=== PATIENT | female | born 1980 | race Caucasian/White ===

== ENCOUNTER 2023-06-12 18:18 | Emergency (ER) | payer BC, SELFPAY ==
[2023-06-12 18:27] VITALS: BP 146/88; PULSE 86; RESP 16; TEMP 36.7; O2SAT 99; BMI 29.1
--- NOTE | 2023-06-12 18:38 | CT_ITS ---
The [address] [address] Patient Name: RAMY MARTINEZ MRN: [id number] date: 1980 Sex: F Assigned Patient Location: ER Current Patient Location: Accession/Order Number: [id number] Exam Date: 06/12/2023 19:54 Report Date: 06/12/2023 20:18 At the request of: JOSHUA NARVAEZ Procedure: CT abdomen pelvis w con EXAM: CT scan of the abdomen and pelvis using 100 mL of IV iodinated contrast. Dose reduction technique used: Automated exposure control and/or adjustment of the mA and/or kV according to patient size and/or use of iterative reconstruction technique. REASON FOR EXAM: Colitis, bloody stools COMPARISON: None FINDINGS: Bilateral tubal ligation clips. Cholecystectomy. Nonobstructing left calyceal tip renal stone. Colonic diverticulosis. Ventral hernia repair changes. Right middle lobe pulmonary cyst. Normal appendix. No free fluid in the abdomen or pelvis. No free intraperitoneal air. No dilated or thickened loops of small bowel or colon. No hydronephrosis or obstructing renal or ureteral calculi. Liver, pancreas, spleen, bilateral kidneys, and bilateral adrenal glands are otherwise unremarkable. No lymphadenopathy in the abdomen or pelvis. Remainder unremarkable. CT/CT abdomen pelvis w con IMPRESSION: No acute abnormalities in the abdomen or pelvis. Electronically authenticated by: TRELL GAMBOA Date: 06/12/2023 20:18
--- NOTE | 2023-06-12 18:40 | ED_ITS ---
HPI - General Adult General Chief complaint: Urogenital-Female Stated complaint: Bloody Stools x1 week, HX colitis Time Seen by Provider: 06/12/23 18:19 Source: patient and family Mode of arrival: walk-in Limitations: no limitations History of Present Illness HPI narrative: Patient is a 42-year-old female who presents to the emergency department for the evaluation of possible colitis exacerbation. She has a history of pancolitis and has been treated with antibiotics and steroids in the past by her GI specialist. She states she contacted the GI office today at [facility] to let them know that she has been having bloody stool for the last week. She has no abdominal pain. She states that she was not able to be seen in the office and she was referred to the ER. She receives most of her care through [facility]. Last colonoscopy was 2 years ago. She states she has not been treated with antibiotics and steroids for this in over a year. She has had no fevers or vomiting. She reports intermittent nausea. She has no significant abdominal discomfort. No medications taken prior to arrival. She is not concerned for . Related Data Home Medications Medication Instructions Recorded Confirmed ferrous sulfate 325 mg (65 mg 325 mg PO DAILY 06/12/23 06/12/23 iron) tablet (FeroSul) mesalamine 0.375 gram PO DAILY 06/12/23 capsule,extended release 24 hr phentermine 37.5 mg capsule 37.5 mg PO DAILY 06/12/23 06/12/23 (Adipex-P) trazodone 50 mg tablet 50 mg PO DAILY 06/12/23 06/12/23 venlafaxine 75 mg capsule,extended 75 mg PO DAILY 06/12/23 06/12/23 release 24 hr Previous Rx's Medication Instructions Recorded metronidazole 500 mg tablet 500 mg PO Q12H 7 days #14 tabs 06/12/23 ondansetron 4 mg disintegrating 4 mg PO Q6H PRN nausea and 06/12/23 tablet vomiting #12 tabs prednisone 20 mg tablet 40 mg (2 x 20 mg) PO DAILY 3 days 06/12/23 #6 tabs Allergies Allergy/AdvReac Type Severity Reaction Status Date / Time No Known Drug Allergies Allergy Verified 06/12/23 18:24 Review of Systems ROS Constitutional Denies: fever or chills Ears, nose, mouth, and throat Denies: throat pain Cardiovascular Denies: chest pain Respiratory Denies: shortness of breath or cough Gastrointestinal Reports: nausea, diarrhea and blood in stool; Denies: abdominal pain or vomiting Musculoskeletal Denies: back pain Integumentary/Breast Denies: rash Neurological Denies: headache Hematologic/Lymphatic Denies: easy bruising or easy bleeding [facility] Social History Smoking status: Never smoker Exam Narrative Exam Narrative: Gen.: Awake, alert, in no distress Head: Normocephalic, atraumatic ENT: Moist mucous membranes Respiratory: No respiratory distress, lungs clear bilaterally Cardio: Regular rate and rhythm Gastrointestinal: Abdomen is soft, nondistended and nontender to palpation Extremities: Moves extremities equally Psych: Normal mood and affect Neuro: No focal neuro deficit Skin: Warm, dry, intact Constitutional Vital Signs, click to edit/add: Last Vital Signs Temp 98.1 F 06/12/23 18:27 Pulse 86 06/12/23 18:27 Resp 16 06/12/23 18:27 BP 146/88 H 06/12/23 18:27 Pulse Ox 99 06/12/23 18:27 O2 Del Method Room Air 06/12/23 18:27 Course Vital Signs Vital signs: Vital Signs Temperature 98.1 F 06/12/23 18:27 Pulse Rate 86 06/12/23 18:27 Respiratory Rate 16 06/12/23 18:27 Blood Pressure 146/88 H 06/12/23 18:27 Pulse Oximetry 99 06/12/23 18:27 Oxygen Delivery Method Room Air 06/12/23 18:27 Temperature 98.1 F 06/12/23 18:27 Pulse Rate 86 06/12/23 18:27 Respiratory Rate 16 06/12/23 18:27 Blood Pressure 146/88 H 06/12/23 18:27 Pulse Oximetry 99 06/12/23 18:27 Oxygen Delivery Method Room Air 06/12/23 18:27 Medical Decision Making MDM Narrative Medical decision making narrative: Patient with normal labs, normal inflammatory markers and CT showing no evidence of acute abnormalities. Given her history she is treated with a short course of Flagyl and prednisone. Follow-up with your GI doctor and return to the ER if symptoms change or worsen. Medical Records Medical records reviewed: Yes I reviewed the patient's medical records Lab Data Lab results reviewed: Yes I reviewed the patient's lab results Labs: Lab Results 06/12/23 06/12/23 Range/Units 18:49 18:52 WBC 6.5 (4.0-11.0) 10^3/uL RBC 4.31 (4.20-5.40) 10^6/uL Hgb 12.8 (12.0-16.0) g/dL Hct 38.3 (36.0-48.0) % MCV 88.9 (81.0-99.0) fL MCH 29.7 (26.7-34.0) pg MCHC 33.4 (29.9-35.2) g/dL RDW 12.1 (11.0-15.0) % Plt Count 368 (150-450) 10^3/uL MPV 10.1 (9.5-13.5) fL Neut % (Auto) 65.4 (43.0-75.0) % Lymph % (Auto) 22.0 (20.5-60.0) % [place] % (Auto) 7.6 (1.7-12.0) % Eos % (Auto) 4.0 (0.9-7.0) % Baso % (Auto) 0.8 (0.2-2.0) % Neut # (Auto) 4.2 (1.4-6.5) 10^3/uL Lymph # (Auto) 1.4 (1.2-3.8) 10^3/uL [place] # (Auto) 0.5 (0.3-0.8) 10^3/uL Eos # (Auto) 0.3 (0.0-0.7) 10^3/uL Baso # (Auto) 0.1 (0.0-0.1) 10^3/uL Abs Immat Gran (auto) 0.01 (0.00-0.03) 10^3/uL Imm/Tot Granulo (auto) 0.2 (0.0-0.5) % Sodium 137 (136-145) mmol/L Potassium 3.4 L (3.5-5.1) mmol/L Chloride 101 (98-107) mmol/L Carbon Dioxide 28.3 (21.0-32.0) mmol/L Anion Gap 11.1 BUN 7.0 (7.0-18.0) mg/dL Creatinine 0.75 (0.55-1.02) mg/dL Est GFR ( Amer) >60 (>=60) Est GFR (Non-Af Amer) >60 (>=60) BUN/Creatinine Ratio 9.3 Glucose 104 (74-106) mg/dL Lactate 0.5 (0.4-2.0) mmol/L Calcium 9.2 (8.5-10.1) mg/dL Total Bilirubin 0.6 (0.2-1.0) mg/dL AST 12 L (15-37) U/L ALT 13 L (14-59) U/L Alkaline Phosphatase 52 (46-116) U/L C-Reactive Protein <0.50 (<=0.50) mg/dL Total Protein 7.3 (6.4-8.2) g/dL Albumin 3.9 (3.4-5.0) g/dL Globulin 3.4 g/dL Albumin/Globulin Ratio 1.1 Serum HCG, Qual Negative (NEGATIVE) Urine Color Yellow (YELLOW) Urine Clarity Clear (CLEAR) Urine pH 6.0 (5.0-9.0) Ur Specific [place] 1.025 (1.005-1.025) Urine Protein Negative (NEG/TRACE) mg/dL Urine Glucose (UA) Negative (NEGATIVE) mg/dL Urine Ketones 15 A (NEGATIVE) mg/dL Urine Occult Blood Moderate A (NEGATIVE) Urine Nitrite Negative (NEGATIVE) Urine Bilirubin Small A (NEGATIVE) Urine Urobilinogen 0.2 (0.2-1.0) EU/dL Ur Leukocyte Esterase Negative (NEGATIVE) Urine RBC 2-5 A (0-2) #/HPF Urine WBC None seen (NONE SEEN) #/HPF Ur Squamous Epith Cells None seen (NONE/RARE) #/LPF Urine Crystals None seen (None Seen) #/HPF Urine Bacteria None seen (NONE SEEN) #/HPF Urine Casts None seen (NONE SEEN) #/LPF Urine Mucus Moderate A (NONE SEEN) Imaging Data CT scan - abdomen: Attestation: I have reviewed the pertinent imaging results. Radiologist's impression: ITS Impressions Abdomen/Pelvis CT 06/12/23 18:38 IMPRESSION: No acute abnormalities in the abdomen or pelvis. Electronically authenticated by: TRELL GAMBOA Date: 06/12/2023 20:18 Discharge Plan Discharge Chief Complaint: Urogenital-Female Clinical Impression: Rectal bleeding Patient Disposition: Home, Self-Care Time of Disposition Decision: 20:52 Condition: Good Prescriptions / Home Meds: New prednisone 20 mg tablet 40 mg PO DAILY 3 Days Qty: 6 0RF metronidazole 500 mg tablet 500 mg PO Q12H 7 Days Qty: 14 0RF ondansetron 4 mg tablet,disintegrating 4 mg PO Q6H PRN (Reason: nausea and vomiting) Qty: 12 0RF No Action ferrous sulfate [FeroSul] 325 mg (65 mg iron) tablet 325 mg PO DAILY trazodone 50 mg tablet 50 mg PO DAILY venlafaxine 75 mg capsule,extended release 24hr 75 mg PO DAILY phentermine [Adipex-P] 37.5 mg capsule 37.5 mg PO DAILY Rx Instructions: must administer 30 minutes before or 1-2 hours after breakfast mesalamine 0.375 gram capsule,extended release 24hr PO DAILY Rx Instructions: 0.375g orally; Instructions: Rectal Bleeding (ED) Additional Instructions: Follow up with your GI doctor Stand Alone Forms: Portal Instructions Referrals: Bipin Martell MD [Primary Care Provider] - 1 week
[2023-06-12] MEDS: 0.9 % SODIUM CHLORIDE 1,000 ML 999 ML IV (18:52)
[2023-06-12 19:22] LABS: Basophils Absolute Auto 0.1 10^3/uL (0.0-0.1); Basophils Percent Auto 0.8 % (0.2-2.0); Eosinophils Absolute Auto 0.3 10^3/uL (0.0-0.7); Hematocrit 38.3 % (36.0-48.0); Hemoglobin 12.8 g/dL (12.0-16.0); Immature Granulocytes Abs Auto 0.01 10^3/uL (0.00-0.03); Immature Granulocytes Pct Auto 0.2 % (0.0-0.5); Lymphocytes Absolute Auto 1.4 10^3/uL (1.2-3.8); Mean Corpuscular HGB Conc 33.4 g/dL (29.9-35.2); Mean Corpuscular Hemoglobin 29.7 pg (26.7-34.0); Mean Corpuscular Volume 88.9 fL (81.0-99.0); Mean Platelet Volume 10.1 fL (9.5-13.5); Monocytes Absolute Auto 0.5 10^3/uL (0.3-0.8); Monocytes Percent Auto 7.6 % (1.7-12.0); Neutrophils Absolute Auto 4.2 10^3/uL (1.4-6.5); Neutrophils Percent Auto 65.4 % (43.0-75.0); Platelet Count 368 10^3/uL (150-450); Red Blood Count 4.31 10^6/uL (4.20-5.40); Red Cell Distribution Width 12.1 % (11.0-15.0); White Blood Count 6.5 10^3/uL (4.0-11.0)
[2023-06-12 19:35] LABS: Bilirubin Urine SMALL (NEGATIVE); Blood Urine MODERATE (NEGATIVE); Clarity Urine CLEAR (CLEAR); Color Urine YELLOW (YELLOW); Glucose Urine UA NEGATIVE (NEGATIVE); Ketones Urine 15 mg/dL (NEGATIVE); Leukocyte Esterase Urine NEGATIVE (NEGATIVE); Nitrite Urine NEGATIVE (NEGATIVE); Protein Urine NEGATIVE (NEG/TRACE); Specific Gravity Urine 1.025 (1.005-1.025); Urobilinogen Urine 0.2 EU/dL (0.2-1.0)
[2023-06-12 19:37] LABS: Urine Microscopic Indicated YES
[2023-06-12 19:42] LABS: Bacteria Urine NONE SEEN #/HPF (NONE SEEN); Cast Seen? NONE SEEN #/LPF (NONE SEEN); Crystals Seen? None Seen #/HPF (None Seen); Mucus Urine MODERATE (NONE SEEN); Squamous Epithelial Cell Urine NONE SEEN #/LPF (NONE/RARE); WBC Urine NONE SEEN #/HPF (NONE SEEN)
[2023-06-12 19:43] LABS: HCG Qualitative NEGATIVE (NEGATIVE)
[2023-06-12 19:44] LABS: Lactate/Lactic Acid 0.5 mmol/L (0.4-2.0)
[2023-06-12 19:47] LABS: Alanine Aminotransferase 13 U/L (14-59); Albumin Globulin Ratio 1.1; Albumin Level 3.9 g/dL (3.4-5.0); Alkaline Phosphatase 52 U/L (46-116); Anion Gap 11.1; Aspartate Amino Transferase 12 U/L (15-37); BUN Creatinine Ratio 9.3; Bilirubin Total 0.6 mg/dL (0.2-1.0); Calcium 9.2 mg/dL (8.5-10.1); Carbon Dioxide 28.3 mmol/L (21.0-32.0); Chloride 101 mmol/L (98-107); Estimated GFR (African America >60 (>=60); Estimated GFR (Non-African Ame >60 (>=60); Globulin 3.4 g/dL; Glucose 104 mg/dL (74-106); Potassium 3.4 mmol/L (3.5-5.1); Sodium 137 mmol/L (136-145); Total Protein 7.3 g/dL (6.4-8.2)
[2023-06-12 19:50] LABS: C Reactive Protein <0.50 mg/dL (<=0.50)
[2023-06-12 20:56] LABS: Erythrocyte Sedimentation Rate 6 mm/hr (<=20)
[2023-06-12 21:00] VITALS: BP 130/80; PULSE 80; RESP 18; O2SAT 99
[2023-06-12] MEDS: METRONIDAZOLE 250 MG TABLET 500 MG PO (21:01)
[2023-06-12] MEDS: PREDNISONE 20 MG TABLET 60 MG PO (21:01)
== END 2023-06-12 21:00 | disposition home or self-care (01) ==
PROVIDERS: Physician Assistant; Emergency Provider Emergency Medicine; PCP Family Medicine
DX: K92.1 Melena (principal); Z79.899 Other long term (current) drug therapy
CPT/HCPCS: 36415; 74177; 80053; 81001; 83605; 84703; 85025; 85652; 86140; 99285; J7512; Q9967

== ENCOUNTER 2024-01-03 19:05 | Outpatient (REF) | payer BC, SELFPAY ==
[2024-01-09 10:09] LABS: Age Gdln ACOG Testing Note (.); HPV Aptima Negative (Negative); IGP, Aptima HPV, rfx 16/18,45 Note (.)
== END 2024-01-03 19:06 | disposition home or self-care (01) ==
LOC: LAB 19:05
PROVIDERS: PCP Family Medicine; Visit Provider Physician Assistant
DX: Z01.419 Encounter for gynecological examination (general) (routine) without abnormal findings (principal)
CPT/HCPCS: 87624; 88175

== ENCOUNTER 2024-01-08 17:38 | Outpatient (OUT) | payer BC, SELFPAY ==
--- NOTE | 2024-01-08 | MM_ITS ---
Patient Name: RAMY MARTINEZ MR#: [id number] : 1980 Exam Date: 01/08/2024 Ordering Doctor: CHAYA Reynolds . RADIOLOGY REPORT PROCEDURE: MM TOMOSYNTHESIS SCREENING BI COMPARISON: MG MAMM SCREEN 3D FAISAL CAD, 02/01/2022. INDICATIONS: Screening mammogram Calculator Name NCI Breast Cancer Risk Assessment Tool 5 Year Breast Cancer Risk 0.50% Lifetime Breast Cancer Risk 7.10% Personal Breast Cancer No Personal Ovarian Cancer No Treatments None Family Cancers Mother with lung/brain cancer at age 57; Grandmother-maternal with uterine cancer at age 40. LOCATION: [facility] BREAST COMPOSITION: The breasts are heterogeneously dense,which may obscure small masses. FINDINGS: DIAGNOSTIC CATEGORY 1--NEGATIVE. RIGHT BREAST: No significant suspicious finding. No significant change has occurred. LEFT BREAST: No significant suspicious finding. No significant change has occurred. RECOMMENDATIONS: ROUTINE MAMMOGRAM AND CLINICAL EVALUATION IN 12 MONTHS. PLEASE NOTE: A NORMAL MAMMOGRAM DOES NOT EXCLUDE THE POSSIBILITY OF BREAST CANCER. A CLINICALLY SUSPICIOUS PALPABLE LUMP SHOULD BE BIOPSIED. Dictated by: Evan Fernández M.D. on 01/11/2024 at 09:08 Approved by: Evan Fernández M.D. on 01/11/2024 at 09:13
== END 2024-01-08 17:39 | disposition home or self-care (01) ==
LOC: MAMMO 17:38
PROVIDERS: PCP Family Medicine; Visit Provider Physician Assistant
DX: Z12.31 Encounter for screening mammogram for malignant neoplasm of breast (principal); Z80.1 Family history of malignant neoplasm of trachea, bronchus and lung; Z80.8 Family history of malignant neoplasm of other organs or systems
CPT/HCPCS: 77063; 77067

== ENCOUNTER 2024-08-25 07:17 | Observation (INO) | payer BC, SELFPAY ==
[2024-08-25] VITALS (22 sets, daily range): BP systolic 111–130; BP diastolic 72–91; PULSE 80–117; TEMP 36.4–36.9; O2SAT 77–99; BMI 33.3; BMI 34.0
--- OUTSIDE RECORDS SUMMARY | 2024-08-25 07:22 | XMS_ITS | CCD ---
Author Organization [facility] ion [facility] Care Team Providers Care Accounts Receivable Manager Name Role Phone ABERRA, JOSEFINA Unavailable Unavailable HOUSE, JUDITH P Unavailable Unavailable HOUSE, JUDITH P Unavailable Unavailable ABERRA, JOSEFINA Unavailable Unavailable HOUSE, JUDITH P Unavailable Unavailable HOUSE, JUDITH P Unavailable Unavailable HOUSE, JUDITH P Unavailable Unavailable LI, NA Unavailable Unavailable LI, NA Unavailable Unavailable ABERRA, JOSEFINA Unavailable Unavailable MD Yaquelin Perez Primary Care Provider MD Reddy Dewitt Attending Provider [phone] Reddy Dewitt Unavailable Yaquelin Perez Primary Care Physician CHASITY BOOKER Admitting Unavailable CHASITY BOOKER Attending Unavailable CHRIS ., DR JAMISON Primary Care Unavailable CHASITY BOOEKR Consulting Unavailable LUIS ., DR CHASE Admitting Unavailable LUIS ., DR CHASE Attending Unavailable HOY ., DR JAMISON Primary Care Unavailable LUIS ., DR CHASE Consulting Unavailable LUIS ., DR CHASE Admitting Unavailable LUIS ., DR CHASE Attending Unavailable HOY ., DR JAMISON Primary Care Unavailable SHIDLER, DR KRYSTAL Pelaez Consulting Unavailable LUIS ., DR CHASE Consulting Unavailable CHRIS ., DR JAMISON Admitting Unavailable CHRIS ., DR JAMISON Attending Unavailable CHRIS ., DR JAMISON Primary Care Unavailable CHRIS Larios, DR JAMISON Consulting Unavailable QUNIN, DR VALVERDE Admitting Unavailable QUINN, DR VALVERDE Attending Unavailable CHRIS ., DR JAMISON Primary Care Unavailable QUINN, DR VALVERDE Consulting Unavailable DR YAQUELIN PATINO Primary Care Unavailable CLARA SEN Admitting Unavailable CLARA SEN Attending Unavailable JULY, DR STELLA Paredes Consulting Unavailable CLARA SEN Consulting Unavailable CHRIS ., DR JAMISON Admitting Unavailable CHRIS ., DR JAMISON Attending Unavailable CHRIS ., DR JAMISON Primary Care Unavailable CHRIS ., DR JAMISON Consulting Unavailable CHASITY BOOKER Admitting Unavailable CHASITY BOOKER Attending Unavailable CHRIS ., DR JAMISON Primary Care Unavailable MD Yaquelin Perez Primary Care Provider MD Arleth Roach Admit Provider [phone] MD Arleth Roach Attending Provider [phone] Yaquelin Perez MD Primary Care Provider Tyler Roach Attending Unavailab Tyler Martinez Admitting Unavailab Yaquelin Sheth Primary Care Unavailable DENISSE CHIANG Attending Unavailable YAQUELIN PEREZ Primary Care Unavailable MUHAZEL, JOSEPH H Referring Unavailable YAQUELIN PEREZ Primary Care Unavailable YAQUELIN PEREZ Primary Care Unavailable YAQUELIN PEREZ Primary Care Unavailable DENISSE CHIANG Admitting Unavailable DENISSE CHIANG Attending Unavailable YAQUELIN PEREZ Primary Care Unavailable YAQUELIN PEREZ Primary Care Unavailable DENISSE CHIANG H Attending Unavailable YAQUELIN PEREZ Primary Care Unavailable MUOH, JOSEPH H Attending Unavailable YAQUELIN PEREZ Primary Care Unavailable DENISSE CHIANG H Attending Unavailable YAQUELIN PEREZ Primary Care Unavailable Unavailable Primary Care Provider Unavailabl e Melissa Rivera Admitting Unavaila Melissa Garcia Attending Unavaila Melissa Garcia Referring Unavaila ble Melissa Rivera Taladan Attending Unavaila Melissa Garcia Attending Unavaila ble Medications Current Medications Medication Drug Class(es) Dates Sig (Normalized) Sig (Original) acetaminophen 325 mg / HYDROcodone bitartrate 5 mg oral tablet (3 sources) Opioid Agonist Start: 12-24-2023 take 1 tablet by mouth every four hours as needed 1 tablet, oral, Every 4 hours PRN, pain moderate (4-6), second line, Starting on Sun12/24/23 at 1900, Recovery (only), When able to take oral medications., If ordered PRN for pain, nurse is permitted to administer this medication for higher pain scores based on patient preference? Yes Start: 10-03-2019 End: 10-10-2019 take 1 tablet by mouth once daily at bedtime Hydrocodone-Acetaminophen Discontinued 1 TAB PO Daily at bedtime October 03, 2019 8:30am October 10, 2019 2:39pm acetaminophen 325 mg / oxyCODONE hydrochloride 5 mg oral tablet (1 source) Opioid Agonist Start: 12-24-2023 End: 12-27-2023 take 1 tablet by mouth every six hours for pain oxyCODONE-acetaminophen (Percocet) 5-325 mg tablet Indications: Prolapsed internal hemorrhoids Take 1 tablet by mouth every 6 hours if needed for severe pain (7 - 10) for up to 3 days. 10 tablet 12/24/2023 12/27/2023 Active albuterol 0.83 mg/ml inhalation solution (6 sources) beta2-Adrene rgic Agonist Start: 12-24-2023 2.5 mg, nebulization, Every 20 min PRN, wheezing, Starting on Sun12/24/23 at 1900, For 3 doses, Recovery (only) Start: 10-03-2019 End: 08-28-2022 take 1 puff(s) by inhalation every four to six hours Albuterol Sulfate (Proair Hfa) 90 mcg/actuation Hfa Aerosol Inhaler Active 2 PUFF INHALATION EVERY 4-6 HOURS October 03, 2019 8:30am take 2 puff(s) by mo uth every four hours albuterol 90 mcg/actuation inhaler INHALE 2 PUFFS BY MOUTH EVERY 4 HOURS IF NEEDED Active Budesonide-Formoterol (3 sources) Corticosteroid, beta2-Adrenergic Agonist Start: 10-03-2019 take 1 puff(s) by inhalation twice daily Budesonide-Formoterol Active 1 PUFF INHALATION Twice daily October 03, 2019 8:30am Start: 10-03-2019 End: 08-28-2022 take 1 puff(s) by inhalation twice daily Budesonide-Formoterol Discontinued 1 PUFF INHALATION Twice daily October 03, 2019 12:00am August 28, 2022 6:50pm take 2 puff(s) by in halation twice daily Symbicort 160-4.5 MCG/ACT INHALE 2 PUFFS TWICE DAILY Inhalation for 30 Active busPIRone hydrochloride 10 mg oral tablet (2 sources) Start: 10-03-2019 End: 08-28-2022 take 10 mg by mouth twice daily Buspirone Active 10 MG PO Twice daily October 03, 2019 8:30am calcium chloride 0.0014 meq/ml / potassium chloride 0.004 meq/ml / sodium chloride 0.103 meq/ml / sodium lactate 0.028 meq/ml injectable solution (2 sources) Start: 12-24-2023 take 100 mL intravenously every hour 100 mL/hr, intravenous, Continuous, Starting on Sun12/24/23 at 1930, Recovery (only) cephalexin 500 mg oral capsule (2 sources) Cephalosporin Antibacterial Start: 10-10-2019 End: 08-28-2022 take 1 capsule by mouth every eight hours Cephalexin (Keflex) 500 mg capsule Active 500 MG PO Q8H October 10, 2019 2:39pm cyclobenzaprine hydrochloride 10 mg oral tablet (2 sources) Muscle Relaxant Start: 10-10-2019 End: 08-28-2022 take 10 mg by mouth three times daily Cyclobenzaprine Active 10 MG PO Three times daily October 10, 2019 2:39pm dexpanthenol 0.2 mg/ml / magnesium sulfate 0.0467 mg/ml / manganese sulfate 0.0467 mg/ml / niacinamide 0.467 mg/ml / pyridoxine 0.0467 mg/ml / riboflavin 0.04 mg/ml / thiamine 0.0333 mg/ml / vitamin b12 0.943192 mg/ml / zinc sulfate 0.333 mg/ml oral solution (2 sources) Vitamin B12 geriatric multivitamins-mine rals 0.5-0.6-7-0.7 mg elixir Take 5 mL by mouth once daily. Active diphenhydrAMINE (1 source) Histamine-1 Receptor Antagonist Start: 12-24-2023 12.5 mg, intravenous, Once as needed, itching, allergic reaction, Starting on Sun12/24/23 at 1900, For 1 dose, Recovery (only) docusate sodium 100 mg oral capsule (1 source) Start: 12-24-2023 End: 01-03-2024 take 1 capsule by mouth twice daily docusate sodium (Colace) 100 mg capsule Indications: Prolapsed internal hemorrhoids Take 1 capsule (100 mg) by mouth 2 times a day for 10 days. 20 capsule 12/24/2023 01/03/2024 Active escitalopram 10 mg oral tablet (1 source) Serotonin Reuptake Inhibitor take 1 tablet by mouth once daily Escitalopram Oxalate 10 MG TAKE 1 TABLET BY MOUTH EVERY DAY Oral for 90 Active FeroSul 325 mg oral tablet (4 sources) Start: 07-06-2022 FeroSul 325 mg oral tablet Refills(s) 0 Start Date: 07/06/22 Status: Ordered ferrous sulfate 325 mg oral tablet (1 source) Start: 08-28-2022 take 1 tablet by mouth once daily Ferrous Sulfate (Ferosul) 325 mg (65 mg iron) tablet Active 325 MG PO Daily August 28, 2022 12:00am fexofenadine hydrochloride 180 mg oral tablet (7 sources) Histamine-1 Receptor Antagonist Start: 08-28-2022 take 1 tablet by mouth once daily Fexofenadine (Allergy Relief (Fexofenadine)) 180 mg tablet Active 180 MG PO Daily August 28, 2022 12:00am Start: 07-06-2022 Danya Refill s(s) 0 Start Date: 07/06/22 Status: Ordered Danya 30 MG as directed Orally Active fluticasone / salmeterol (5 sources) Corticosteroid, beta2-Adrenergic Agonist Start: 06-13-2021 Advair 100 mcg- 50 mcg Powder Inhalation, BID, Refill(s) 0 Start Date: 06/13/21 Status: Ordered 1 ml hydrALAZINE hydrochloride 20 mg/ml injection (1 source) Arteriolar Vasodilator Start: 12-24-2023 5 mg, i ntravenous, Administer over 2 Minutes, Every 30 min PRN, systolic blood pressure greater than 180 mmHg and heart rate less than 60 BPM, Starting on Sun12/24/23 at 1900, For 3 doses, Recovery (only) 1 ml HYDROmorphone hydrochloride 1 mg/ml cartridge (2 sources) Opioid Agonist Start: 12-24-2023 0.5 mg, intravenous, Every 5 min PRN, pain moderate (4-6), first line, Starting on Sun12/24/23 at 1900, Recovery (only), Max total of 4 mg regardless of dose. Start: 12-24-2023 1 mg, intraven ous, Every 5 min PRN, pain severe (7-10), first line, Starting on Sun12/24/23 at 1900, Recovery (only), Max total of 4 mg regardless of dose. labetalol hydrochloride 5 mg/ml injectable solution (1 source) beta-Adrenergic Matthew Start: 12-24-2023 5 mg, intravenous, Administer over 1 Minutes, Every 20 min PRN, systolic blood pressure greater than 180 mmHg, dystolic blood pressure greater than 100 mmHg and heart rate greater than 60 BPM, Starting on Sun12/24/23 at 1900, For 4 doses, Recovery (only) lamoTRIgine 25 mg oral tablet (8 sources) Mood Stabilizer, Anti-epileptic Agent Start: 09-10-2023 take 2 tablets by mouth once daily Lamictal 25 mg Tab 50 mg = 2 tab(s), Oral, Daily, Refills(s) 0 Start Date: 09/10/23 Status: Ordered LORazepam 0.5 mg oral tablet (4 sources) Benzodiazepine Start: 01-02-2023 take 1 tablet by mouth every twenty-four hours as needed LORazepam (Ativan) 0.5 mg tablet Take 1 tablet (0.5 mg) by mouth once daily as needed for anxiety. 01/02/2023 Active Start: 08-31-2022 take 0.5 mg by mouth once wade y Lorazepam Active 0.5 MG PO Daily 15 August 31, 2022 12:00am magnesium sulfate 225 MG / potassium chloride 188 MG / sodium sulfate 1479 MG Oral Tablet [Sutab] (3 sources) Start: 06-13-2021 take 1 tablet by mouth once Sutab oral tablet See Instructions, 24 tab(s), Refill(s) 0, Please follow instructions per packaging and physician's handout. Prior to colonoscopy as instructed by Dr. Booker. Colonoscopy ordered by Dr. Booker., [facility]/pharmacy #[id number], 166, cm, 06/13/21 8:20:00 EST, Height/Length Dosing, 110.5, kg, 06/13/21 8:20:00 EST, Weight Dosing Start Date: 06/13/21 Status: Ordered Start: 06-13-2021 take 1 tablet by mouth once Lundy tab oral tablet See Instructions, 24 tab(s), Refill(s) 0, Please follow instructions per packaging and physician's handout. Prior to colonoscopy as instructed by Dr. Booker. Colonoscopy ordered by Dr. Booker., [facility]/pharmacy #[id number], 166, cm, 06/13/21 8:20:00 EST, Heigh... Start Date: 06/13/21 Status: Ordered meclizine hydrochloride 25 mg oral tablet (1 source) Antiemetic take 1 tablet by mouth once daily as needed for dizziness Meclizine HCl 25 MG TAKE 1 TABLET DAILY NEEDED FOR DIZZINESS ORALLY Oral for 30 Active mesalamine (11 sources) Aminosalicylate Start: 3 take 1 capsule by mouth once daily in the morning Mesalamine (Apriso) 0.375 gram capsule,extended release 24hr Active 0.375 GM PO Every morning August 28, 2022 12:00am Start: 07-06-2022 End: 09-29-2023 take 4 capsules by mouth once daily in the morning Apriso 0.375 g oral capsule, extended release 1.5 gm = 4 cap(s), Oral, qAM, X 90 day(s), # 360 cap(s), Refills(s) 4, Pharmacy: [facility] #[id number], 166, cm, 07/06/22 13:48:00 EST, Height/Length Dosing, 98.7, kg, 07/06/22 13:48:00 EST, Weight Dosing Start Date: 07/06/22 Stop Date: 09/29/23 Status: Ordered mesalamine ER (A priso) 0.375 gram 24 hr capsule Active take 1 capsule by [facility] once daily mesalamine ER (Apriso) 0.375 g 24 hr capsule Take 1.5 g by mouth Daily Active 5 ml midazolam 1 mg/ml injection (1 source) Benzodiazepine Start: 12-24-2023 1 mg, intravenous, Once as needed, anxiety, Starting on Sun12/24/23 at 1900, For 1 dose, Recovery (only) montelukast 10 mg oral tablet (2 sources) Leukotriene Receptor Antagonist Start: 10-03-2019 End: 08-28-2022 take 10 mg by mouth once daily Montelukast Active 10 MG PO Daily October 03, 2019 8:30am oxyCODONE hydrochloride 5 mg oral capsule (2 sources) Opioid Agonist Start: 10-10-2019 End: 08-28-2022 take 5-10 mg by mouth every six hours Oxycodone Active 5 - 10 MG PO Q6H 60 8 October 10, 2019 2:39pm oxygen (O2) therapy (1 source) Start: 12-24-2023 inhalation, Continuous PRN - O2/gases, other, Starting on Sun12/24/23 at 1900, Recovery (only), Device: Nasal Cannula, Rate in liters per minute: 4 LPM, Keep O2 Sat Above: 92% promethazine (Phenergan) 6.25 mg in sodium chloride 0.9% 50 mL IV (1 source) Start: 12-24-2023 6.25 mg, intravenous, Administer over 15 Minutes, Once as needed, Nausea/vomiting, second line, Starting on Sun12/24/23 at 1900, For 1 dose, Recovery (only) racepinephrine 22.5 mg/ml inhalation solution (1 source) Start: 12-24-2023 take 0.5 mL by inhalation every four hours as needed 0.5 mL, nebulization, Every 4 hours PRN, wheezing, shortness of breath, stridor, Starting on Sun12/24/23 at 1900, Recovery (only), Dilute in 3 mL NS riboflavin, vitamin B2, (VITAMIN B-2 ORAL) (2 sources) riboflavin, vitamin B2, (VITAMIN B-2 ORAL) Take by mouth 1 (one) time per week in the analog ic design engineer.. Active riboflavin, selam min B2, (VITAMIN B-2 ORAL) Take by mouth 1 (one) time per week in the analog ic design engineer.. Suspended traZODone hydrochloride 50 mg oral tablet (10 sources) Serotonin Reuptake Inhibitor Start: 08-31-2022 traZODONE 50 mg Tab Refills(s) 0 Start Date: 07/11/23 Status: Ordered Yhwmisc-Soux-Nxckd -Oreg-Capryl (1 source) Start: 08-28-2022 take 1 capsule by mouth once daily Dgxquvk-Wjhk-Yi eug-Knev-Yrbcup Active 1 CAP PO Daily August 28, 2022 12:00am Turmeric extract (4 sources) Start: 07-11-2023 Turmeric Refill(s) 0 Start Date: 07/11/23 Status: Ordered vedolizumab 300 mg injection (2 sources) Integrin Receptor Antagonist Start: 10-03-2019 End: 08-28-2022 take 300 mg intravenously every two months Vedolizumab (Entyvio) 300 mg Recon Soln Active 300 MG IV EVERY 2 MONTHS October 03, 2019 8:30am 24 hr venlafaxine 75 mg extended release oral capsule (11 sources) Serotonin and Norepinephrine Reuptake Inhibitor Start: 07-11-2023 venlafaxine 75 mg Cap-ER Refills(s) 0 Start Date: 07/11/23 Status: Ordered Start: 08-31-2022 take 37.5 mg by mouth once marii ly Venlafaxine Active 37.5 MG PO Daily 15 August 31, 2022 12:00am take 1 capsule by [facility] every twenty-four hours in the morning venlafaxine XR (Effexor XR) 75 MG 24 hr capsule Take 75 mg by mouth in the morning. Active Ventolin HFA 90 mcg/inh Aerosol (5 sources) Start: 09-11-2017 take 2 puff(s) by inhalation four times daily Ventolin HFA 90 mcg/inh Aerosol 2 puff(s), Inhalation, QID Shortness of breath or wheezing, Refill(s) 0, Asthma Start Date: 09/11/17 Status: Ordered verapamil hydrochloride 180 mg extended release oral tablet (1 source) Calcium Channel Matthew take 1 tablet by mouth once daily Verapamil HCl ER 180 MG TAKE 1 TABLET BY MOUTH EVERY DAY Oral for 30 Active Completed/Discontinued Medications Medication Drug Class(es) Dates Sig (Normalized) Sig (Original) clonazePAM 1 mg oral tablet (5 sources) Benzodiazepine Start: 08-28-2022 End: 08-31-2022 take 0.5-1 tablets by mouth at bedtime Clonazepam (Klonopin) 1 mg tablet Discontinued 1 MG PO Bedtime August 28, 2022 12:00am August 31, 2022 11:27am Take 1/2 to 1 tablet at HS. Start: 07-06-2022 ClonazePAM 0.5 mg Tab Refills(s) 0 Start Date: 07/06/22 Status: Ordered 2 ml metoclopramide 5 mg/ml injection (1 source) Dopamine-2 Receptor Antagonist Start: 12-24-2023 End: 12-24-2023 10 mg, intravenous, Once as needed, nausea/vomiting, first line, Starting on Sun12/24/23 at 1900, For 1 dose, Recovery (only) sertraline 100 mg oral tablet (4 sources) Serotonin Reuptake Inhibitor Start: 10-03-2019 End: 08-28-2022 take 1 tablet by mouth once daily Sertraline (Zoloft) 100 mg Tablet Discontinued 100 MG PO Daily October 10, 2019 12:00am October 10, 2019 5:55am Vitamin D 50,000 intl units (1.25 mg) oral capsule (2 sources) Start: 07-16-2023 End: 01-12-2024 take 1 capsule by mouth every week Vitamin D 50,000 intl units (1.25 mg) oral capsule 50,000 International_Unit = 1 cap(s), Oral, qWeek, X 6 months, # 26 cap(s), Refills(s) 0, Pharmacy: [facility] #[id number], 166, cm, 07/11/23 8:09:00 EST, Height/Length Dosing, 82.6, kg, 07/11/23 8:09:00 EST, Weight Dosing Start Date: 07/16/23 Stop Date: 01/12/24 Status: Ordered Problems Active Problems Problem Classification Problem Date Documented Date Episodic/Chronic Anal and rectal conditions (2 sources) Rectal prolapse; Translations: [Rectal prolapse] Onset: 09-25-2023 Episodic Anxiety disorders (2 sources) Anxiety; Translations: [Anxiety disorder, unspecified] 08-29-2022 Chronic Asthma (6 sources) Asthma without status asthmaticus; Translations: [Asthma, unspecified, unspecified status] Onset: 02-28-2008 09-06-2017 Chronic Comment on above: no problems Attention-deficit, conduct, and disruptive behavior disorders (1 source) Attention deficit hyperactivity disorder; Translations: [Attention-deficit hyperactivity disorder, unspecified type] 08-29-2022 Chronic Attention-deficit, conduct, and disruptive behavior disorders (1 source) Attention-deficit hyperactivity disorder, unspecified type; Translations: [Attention deficit disorder with hyperactivity] 08-31-2022 Chronic Biliary tract disease (10 sources) Acute cholecystitis; Translations: [Common bile duct calculus] 09-06-2017 Episodic Diabetes mellitus without complication (5 sources) Diabetes mellitus 09-06-2017 Chronic Diseases of white blood cells (1 source) Leukocytosis; Translations: [Elevated white blood cell count, unspecified] Chronic Headache; including migraine (1 source) Migraine; Translations: [Migraine, unspecified without mention of intractable migraine without mention of status migrainosus] Onset: 10-19-2008 Chronic Hemorrhoids (9 sources) Internal hemorrhoids; Translations: [Other hemorrhoids] Onset: 10-16-2023 10-09-2023 Episodic Mood disorders (1 source) Depressive disorder; Translations: [Depressive disorder, not elsewhere classified] Onset: 02-28-2008 Chronic Other aftercare (1 source) Other terminal clerk (current) drug therapy; Translations: [OTH 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 HEATER OPERATOR CURRENT DRUG THERAPY] Onset: 08-30-2022 Episodic Other hereditary and degenerative nervous system conditions (1 source) Restless legs; Translations: [Restless legs syndrome [RLS]] Onset: 02-28-2008 Chronic Other hereditary and degenerative nervous system conditions (1 source) Restless legs syndrome; Translations: [RESTLESS LEGS SYNDROME] Onset: 06-12-2022 Chronic Other nervous system disorders (1 source) Cervical myelopathy; Translations: [Disease of spinal cord, unspecified] Chronic Other nervous system disorders (1 source) Carpal tunnel syndrome of right wrist; Translations: [Carpal tunnel syndrome, right upper limb] Chronic Other non-traumatic joint disorders (4 sources) Arthropathy, unspecified; Translations: [Arthropathy, unspecified] Onset: 11-28-2023 Chronic Other nutritional; endocrine; and metabolic disorders (1 source) Obesity; Translations: [Obesity, unspecified] Onset: 02-28-2008 Chronic Other nutritional; endocrine; and metabolic disorders (5 sources) Body mass index 30+ - obesity 06-26-2019 Chronic Regional enteritis and ulcerative colitis (20 sources) Ulcerative colitis; Translations: [Unspecified ulcerative colitis] Onset: 10-08-2008 Chronic Residual codes; unclassified (4 sources) Obstructive sleep apnea (adult) (pediatric); Translations: [OBSTRUCTIVE SLEEP APNEA] Onset: 06-10-2022 Chronic Spondylosis; intervertebral disc disorders; other back problems (6 sources) Intervertebral disc disorder of cervical region with myelopathy; Translations: [Cervical disc disorder at C6-C7 level with myelopathy] Onset: 08-30-2021 Resolved: 08-30-2021 10-11-2019 Chronic Suicide and intentional self-inflicted injury (5 sources) Poisoning by other nonsteroidal anti-inflammatory drugs [NSAID], intentional self-harm, initial encounter; Translations: [Poisoning by benzodiazepines, intentional self-harm, initial encounter] Onset: 08-28-2022 Episodic Thyroid disorders (1 source) Goiter; Translations: [Goiter, unspecified] Onset: 02-28-2008 Chronic Unclassified (1 source) Ulcerative (chronic) pancolitis with other complication / K51.018(ICD-10) Onset: 06-11-2017 Unclassified (1 source) Follow-up / 145() Onset: 06-11-2017 Past or Other Problems Problem Classification Problem Date Documented Date Episodic/Chronic Diabetes mellitus without complication (1 source) Impaired fasting glycemia; Translations: [Impaired fasting glucose] Onset: 02-28-2008 Episodic Immunizations and screening for infectious disease (1 source) Encounter for screening for human papillomavirus (HPV); Translations: [ENC SCREENING HUMAN PAPILLOMAVIRUS] Onset: 01-25-2022 Episodic Other connective tissue disease (1 source) Myalgia/myositis - multiple; Translations: [Unspecified myalgia and myositis] Onset: 02-28-2008 Episodic Other screening for suspected conditions (not mental disorders or infectious disease) (10 sources) Encounter for screening mammogram for malignant neoplasm of breast; Translations: [Encounter for screening for malignant neoplasm of cervix] Onset: 01-24-2022 Episodic Residual codes; unclassified (1 source) Insomnia; Translations: [Insomnia, unspecified] Onset: 02-28-2008 Episodic Residual codes; unclassified (1 source) Family history of malignant neoplasm of trachea, bronchus and lung; Translations: [FAM HX MALIG NEOPLSM TRACH BRON LNG] Onset: 02-02-2022 Episodic Residual codes; unclassified (1 source) Family history of malignant neoplasm of other organs or systems; Translations: [FAM HX MALIG NEOPLASM OTH ORGN/SYS] Onset: 02-02-2022 Episodic Residual codes; unclassified (8 sources) Family history of cancer Onset: 02-03-2022 07-09-2023 Episodic Spondylosis; intervertebral disc disorders; other back problems (1 source) Radiculopathy, lumbar region Onset: 08-30-2021 Resolved: 08-30-2021 Episodic Unclassified (1 source) Ulcerative (chronic) pancolitis with other complication; Translations: [Ulcerative (chronic) pancolitis with other complication] Onset: 09-03-2017 Unclassified (1 source) Follow-up; Translations: [Follow-up] Onset: 06-11-2017 Results Test Name Value Interpretation Reference Range Facility Reminderson 08-08-2024 Reminders Reminders From: Cain Thompson To: [facility] - Reminders/Recalls; Sent: 09/13/2023 18:12:49 EDT Show up: 08/05/2024 18:12:00 EDT Subject: Ambulatory Reminder Due Date/Time: 09/09/2024 18:12:00 EDT Reminder/Recall Repeat colonoscopy in 1 year(09/2024) due to UC patient is scheduled for sunsep [address] [facility] IGP,APTIMA HPV,AGE GDLNon AGE GDLN ACOG TESTING Note . [facility] Comment on above: TESTS RESULT FLAG UN ITS REF RANGE LAB Clinician Provided Cytology Information Source.............Cervix;Endocervix No. of containers..01 ThinPrep Vial Age Algo ACOG Amirah... 30-65 01 FLAG LEGEND: L-Low Normal,H-High Normal,LL-Alert Low,HH-Alert High <-Panic Low,>-Panic High,A-Abnormal,AA-Critical Abnormal Performed at: 01 =G [address] [place] [address] Zainab Mckeon MD, HPV APTIMA Negative Negative [facility] Comment on above: This nucleic acid am plification test detects fourteen high- risk HPV types (16,18,31,33,35,39,45,51,52,56,58,59,66,68) without differentiation. Performed at: =G - [address], [place] [id number] Striping Machine Operator: Zainab Mckeon MD, Phone: [phone] Performed at: - [address], [place] [id number] Striping Machine Operator: Zainab Mckeon MD, Phone: [phone] IGP, APTIMA HPV, RFX 16/18,45 Note . [facility] Comment on above: TESTS RESULT FLAG UN ITS REF RANGE LAB DIAGNOSIS: 02 NEGATIVE FOR INTRAEPITHELIAL LESION OR MALIGNANCY. Specimen adequacy: 02 Satisfactory for evaluation. No endocervical component is identified. Performed by: Charles Cabrera, Field Agronomist (ASCP) . 02 Note: Note 02 The Pap smear is a screening test designed to aid in the detection of premalignant and malignant conditions of the uterine cervix. It is not a diagnostic procedure and should not be used as the sole means of detecting cervical cancer. Both false-positive and false-negative reports do occur. Test Methodology: Note 02 This liquid based ThinPrep(R) pap test was screened with the use of an image guided system. HPV Genotype Reflex Note 02 Criteria not met, HPV Genotype not performed. FLAG LEGEND: L-Low Normal,H-High Normal,LL-Alert Low,HH-Alert High <-Panic Low,>-Panic High,A-Abnormal,AA-Critical Abnormal Performed at: [address] [address] Zainab Mckeon MD, BRUSH-SPATULA CERVIX ENDOCERVIX [employer] Glucose Test strip manual (B ld) [Mass/Vol]on 12-24-2023 Glucose [Mass/Vol] 99 mg/dL 74 - 99 mg/dL [facility] Interpretation and review of laboratory results Normal [facility] Glucose [Mass/Vol] 99 mg/dL Normal 74-99 [facility] Comment on above: Performed By: #### 2 341-6 #### SABRINA GERMAN ([id number]) [facility] ([facility] [place] [address] [place] [address] HCG ( test) IA.rapi d Ql (U)Ordered By: Josseline Spring on 12-24-2023 HCG ( test) Ql (U) Negative NEGATIVE [facility] Interpretation and review of laboratory results Normal [facility] HCG ( test) IA.rapi d Ql (U)on 12-24-2023 HCG ( test) Ql (U) Negative Normal NEGATIVE [facility] Comment on above: Performed By: #### 8 0384-1 #### SABRINA GERMAN ([id number]) [facility] ([facility] [place]) [address] [place] [address] Basic metabolic 2000 panelon 12-13-2023 Anion gap [Moles/Vol] 12 mmol/L Normal 10-20 [facility] Comment on above: Performed By: #### 3 084-1 #### KADE Sandra ([id number]) [facility] ([facility]) [address] [place] [address] Calcium [Mass/Vol] 10.2 mg/dL Normal 8.6-10.3 [facility] Comment on above: Performed By: #### 3 084-1 #### KADE LORENZ L ([id number]) [facility] ([facility]) [address] [place] [address] Chloride [Moles/Vol] 104 mmol/L Normal 98-107 [facility] Comment on above: Performed By: #### 3 084-1 #### KADE BOURNEMOTZER L ([id number]) [facility] ([facility]) [address] [place] [address] CO2 [Moles/Vol] 30 mmol/L Normal 21-32 [facility] Comment on above: Performed By: #### 3 084-1 #### KADE LORENZ L ([id number]) [facility] ([facility]) [address] [place] [address] Creatinine [Mass/Vol] 0.66 mg/dL Normal 0.50-1.05 [facility] Comment on above: Performed By: #### 3 084-1 #### KADE TIPTONER L ([id number]) [facility] ([facility]) [address] [place] [address] GFR/1.73 sq M.predicted MDRD (S/P/Bld) [Vol rate/Area] mL/min/{1.73_m2} Normal >60 [facility] Comment on above: Result Comment: Calc ulations of estimated GFR are performed using the 2020 CKD-EPI Study Refit equation without the race variable for the IDMS-Traceable creatinine methods. https://jasn.asnjournals.org/content/early//ASN.48131 80390 Performed By: #### 3 084-1 #### KADE LORENZ L ([id number]) [facility] ([facility]) [address] [place] [address] Glucose [Mass/Vol] 117 mg/dL High 74-99 [facility] Comment on above: Performed By: #### 3 084-1 #### KADE BAILEYTZER L ([id number]) [facility] ([facility]) [address] [place] [address] Potassium [Moles/Vol] 4.9 mmol/L Normal 3.5-5.3 [facility] Comment on above: Performed By: #### 3 084-1 #### KADE SCHMOTZER L ([id number]) [facility] ([facility]) [id number] [place] [address] Sodium [Moles/Vol] 141 mmol/L Normal 136-145 [facility] Comment on above: Performed By: #### 3 084-1 #### KADE BOURNEMOTZER L ([id number]) [facility] ([facility]) [address] [place] [address] Urea nitrogen [Mass/Vol] 7 mg/dL Normal 6-23 [facility] Comment on above: Performed By: #### 3 084-1 #### KADE BOURNEMOTZER L ([id number]) [facility] ([facility]) [address] [place] [address] Beta 2 glycoprotein 1 Ab IgA and IgG and IgM panel (S)on 11-28-2023 Beta 2 glycoprotein 1 IgA Qn (S) 34.2 U/mL High <20.0 [facility] Comment on above: Result Comment: Elev ated levels of IgA anti-Beta 2 Glycoprotein-I have not been included in the laboratory criteria for anti-phospholipid syndrome according to an international consensus (J Thromb Haemost 2006 4:295). It may be helpful in identifying subgroups of patients at risk for specific clinical manifestations of anti-phospholipid syndrome. A significant proportion of IgA anti-Beta 2 Glycoprotein- positive tests has no apparent association with any clinical manifestation of anti-phospholipid syndrome. Performed By: #### 3 084-1 #### KADE BOURNEMOTZER L ([id number]) [facility] ([facility]) [address] [place] [address] Beta 2 glycoprotein 1 IgG Qn (S) 2.6 U/mL Normal <20.0 [facility] Comment on above: Result Comment: Elev ated levels of IgG anti-Beta 2 Glycoprotein-I on 2 occasions at least 12 weeks apart are laboratory criteria for anti-phospholipid syndrome according to an international consensus (J Thromb Haemost 2006 4:295). Performed By: #### 3 084-1 #### KADE Sandra ([id number]) [facility] ([facility]) [address] [place] [address] Beta 2 glycoprotein 1 IgM Qn (S) 27.5 U/mL High <20.0 [facility] Comment on above: Result Comment: Elev ated levels of IgM anti-Beta 2 Glycoprotein-I on 2 occasions at least 12 weeks apart are laboratory criteria for anti-phospholipid syndrome according to an international consensus (J Thromb Haemost 2006 4:295). IgM anti-Beta 2 Glycoprotein-I tends to give false positive results in the low positive range, especially in the presence of rheumatoid factor or cryoglobulins. Performed By: #### 3 084-1 #### KADE Sandra ([id number]) [facility] ([facility]) [address] [place] [address] C reactive proteinon 024 CRP [Mass/Vol] mg/L Normal <1.00 [facility] Comment on above: Performed By: #### 1 988-5 #### KADE Sandra ([id number]) [facility] ([facility]) [address] [place] [address] Calcidiolon 11-28-2023 25-hydroxyvitamin D3 [Mass/Vol] 65 ng/mL Normal 30-100 [facility] Comment on above: Order Comment: Defic iency: < 20 ng/ml Insufficiency: 20-29 ng/ml Sufficiency: 30-100 ng/ml This assay accurately quantifies the sum of Vitamin D3, 25-Hydroxy and Vitamin D2,25-Hydroxy. Performed By: #### 1 989-3 #### KADE Sandra ([id number]) [facility] ([facility]) [address] [place] [address] Cardiolipin Ab IA Qn (S)on 0 11-28-2023 Cardiolipin IgA Qn 39.0 APL U/mL High <20.0 [facility] Comment on above: Result Comment: Elev ated levels of IgA anti-cardiolipin have not been included in the laboratory criteria for anti-phospholipid syndrome according to an international consensus (J Thromb Haemost 2006 4:295). It may be helpful in identifying subgroups of patients at risk for specific clinical manifestations of anti-phospholipid syndrome. Performed By: #### 3 180-7 #### KADE Sandra ([id number]) [facility] ([facility]) [address] [place] [address] Cardiolipin IgG IA Qn (S) 2.4 GPL U/mL Normal <20.0 [facility] Comment on above: Result Comment: Elev ated levels of IgG anti-cardiolipin on 2 occasions at least 12 weeks apart are laboratory criteria for anti-phospholipid syndrome according to an international consensus (J Thromb Haemost 2006 4:295). Performed By: #### 3 180-7 #### KADE Sandra ([id number]) [facility] ([facility]) [address] [place] [address] Cardiolipin IgM IA Qn (S) 27.7 MPL U/mL High <20.0 [facility] Comment on above: Result Comment: Elev ated levels of IgM anti-cardiolipin on 2 occasions at least 12 weeks apart are laboratory criteria for anti-phospholipid syndrome according to an international consensus (J Thromb Haemost 2006 4:295). IgM anti-cardiolipin tends to give false positive results in the low positive range, especially in the presence of rheumatoid factor or cryoglobulins. Performed By: #### 3 180-7 #### KADE Sandra ([id number]) [facility] ([facility]) [id number] [place] [address] Complement C3on 11-28-2023 Complement C3 [Mass/Vol] 101 mg/dL Normal 87-200 [facility] Comment on above: Performed By: #### 4 485-9 #### KADE Sandra ([id number]) [facility] ([facility]) [address] [place] [address] Complement C4on 11-28-2023 Complement C4 [Mass/Vol] 14 mg/dL Normal 10-50 [facility] Comment on above: Performed By: #### 4 498-2 #### KADE Sandra ([id number]) [facility] ([facility]) [address] [place], [place] [id number] Cyclic citrullinated peptide Ab.IgGon 11-28-2023 Cyclic citrullinated peptide IgG Qn <1 Normal <3 [facility] Comment on above: Order Comment: THE T EST FOR ANTIBODIES SPECIFIC FOR CYCLIC CITRULLINATED PEPTIDE (CCP) HAS SHOWN TO BE VALUABLE IN THE DIAGNOSIS OF RHEUMATOID ARTHRITIS. THE DIAGNOSTIC VALUE OF ANTIBODIES TO CCP IN JUVENILE RHEUMATOID ARTHRITIS PATIENTS HAS NOT BEEN DETERMINED. ANTIBODIES TO CENTROMERE OR SS-A AND MYELOMA IGG MAY BE REACTIVE IN THIS ASSAY. Result Comment: NEGA TIVE < 3 U/ML POSITIVE >=3 U/ML Performed By: #### 3 3935-8 #### KADE Sandra ([id number]) [facility] ([facility]) [address] [place], [place] [address] ESR Westergren method (Bld) [Velocity]on 11-28-2023 ESR (Bld) [Velocity] mm/h Normal 0-20 [facility] Comment on above: Performed By: #### 4 537-7 #### KADE Sandra ([id number]) [facility] ([facility]) [address] [place] [address] Extractable nuclear Ab panel (S)on 11-28-2023 Centromere protein B Ab Qn (S) <0.2 Normal <1.0 [facility] Comment on above: Result Comment: < 1. 0 = NEGATIVE >=1.0 = POSITIVE Performed By: #### 3 084-1 #### KADE Sandra ([id number]) [facility] ([facility]) [address] [place] [address]1988 Chromatin Ab Qn <0.2 Normal <1.0 [facility] Comment on above: Result Comment: < 1. 0 = NEGATIVE >=1.0 = POSITIVE Performed By: #### 3 084-1 #### KADE Sandra ([id number]) [facility] ([facility]) [id number] [place] [address]1438 DNA double strand Ab Qn (S) 1.0 [IU]/mL Normal <5.0 [facility] Comment on above: Result Comment: NEGA TIVE: <= 4 IU/ML EQUIVOCAL: 5- 9 IU/ML POSITIVE: >=10 IU/ML Performed By: #### 3 084-1 #### KADE Sandra ([id number]) [facility] ([facility]) [address] [place] [address] Meryl-1 extractable nuclear Ab IA Ql (S) <0.2 Normal <1.0 [facility] Comment on above: Result Comment: < 1. 0 = NEGATIVE >=1.0 = POSITIVE Performed By: #### 3 084-1 #### KADE Sandra ([id number]) [facility] ([facility]) [address] [place] [address]995 Ribonucleoprotein extractable nuclear Ab IA Qn (S) 0.6 AI Normal <1.0 [facility] Comment on above: Result Comment: < 1. 0 = NEGATIVE >=1.0 = POSITIVE Performed By: #### 3 084-1 #### KADE Sandra ([id number]) [facility] ([facility]) [id number] [place] [address]5918 Ribosomal P Ab Qn (S) <0.2 Normal <1.0 [facility] Comment on above: Result Comment: < 1. 0 = NEGATIVE >=1.0 = POSITIVE Performed By: #### 3 084-1 #### KADE Sandra ([id number]) [facility] ([facility]) [address] [place] [address] SCL-70 extractable nuclear Ab IA Ql (S) <0.2 Normal <1.0 [facility] Comment on above: Result Comment: < 1. 0 = NEGATIVE >=1.0 = POSITIVE Performed By: #### 3 084-1 #### KADE Sandra ([id number]) [facility] ([facility]) [address] [place] [address]60 Sjogrens syndrome-A extractable nuclear Ab IA Qn (S) <0.2 Normal <1.0 [facility] Comment on above: Result Comment: < 1. 0 = NEGATIVE >=1.0 = POSITIVE Performed By: #### 3 084-1 #### KADE Sandra ([id number]) [facility] ([facility]) [address] [place] [address]24 Sjogrens syndrome-B extractable nuclear Ab IA Qn (S) <0.2 Normal <1.0 [facility] Comment on above: Result Comment: < 1. 0 = NEGATIVE >=1.0 = POSITIVE Performed By: #### 3 084-1 #### KADE Sandra ([id number]) [facility] ([facility]) [address] [place] [address]44 Dias extractable nuclear Ab IA Qn (S) <0.2 Normal <1.0 [facility] Comment on above: Result Comment: < 1. 0 = NEGATIVE >=1.0 = POSITIVE Performed By: #### 3 084-1 #### KADE Sandra ([id number]) [facility] ([facility]) [address] [place] [address] 83965 Dias extractable nuclear Ab+Ribonucleoprotein extractable nuclear Ab IA Ql (S) <0.2 Normal <1.0 [facility] Comment on above: Result Comment: < 1. 0 = NEGATIVE >=1.0 = POSITIVE Performed By: #### 3 084-1 #### KADE Sandra ([id number]) [facility] ([facility]) [address] [place] [address] 74322 Nuclear Abon 11-28-2023 Nuclear Ab Hep2 substrate Ql (S) Negative Normal Negative [facility] Comment on above: Result Comment: The Antinuclear Antibody (JERZY) test was performed using indirect immunofluorescence assay with HEp-2 cells slide. Performed By: #### 3 084-1 #### KADE Sandra ([id number]) [facility] ([facility]) [address] [place] [address] 88754 Proteinon 11-28-2023 Protein [Mass/Vol] 6.8 g/dL Normal 6.4-8.2 [facility] Comment on above: Performed By: #### 2 885-2 #### KADE Sandra ([id number]) [facility] ([facility]) [address] [place] [address] 08589 Rheumatoid factoron 11-28-19 Rheumatoid factor Nephelometry Qn (S) <10 Normal 0-15 [facility] Comment on above: Performed By: #### 1 5205-8 #### KADE Sandra ([id number]) [facility] ([facility]) [address] [place] [address] 58588 SERUM PROTEIN ELECTROPHORESI S + IMMUNOFIXATIONon 11-28-2023 Albumin [Mass/Vol] 4.4 g/dL Normal 3.4-5.0 [facility] Comment on above: Performed By: #### 3 084-1 #### KADE Sandra ([id number]) [facility] ([facility]) [address] [place] [address] 07580 ALPHA 1 GLOBULIN 0.3 g/dL Normal 0.2-0.6 [facility] Comment on above: Performed By: #### 3 084-1 #### KADE Sandra ([id number]) [facility] ([facility]) [address] [place] [address] 21617 ALPHA 2 GLOBULIN 0.5 g/dL Normal 0.4-1.1 [facility] Comment on above: Performed By: #### 3 084-1 #### KADE Sandra ([id number]) [facility] ([facility]) [address] [place] [address] 41360 BETA GLOBULIN 0.6 g/dL Normal 0.5-1.2 [facility] Comment on above: Performed By: #### 3 084-1 #### KADE Sandra ([id number]) [facility] ([facility]) [address] [place] [address] 14147 GAMMA GLOBULIN 1.0 g/dL Normal 0.5-1.4 [facility] Comment on above: Performed By: #### 3 084-1 #### KADE Sandra ([id number]) [facility] ([facility]) [address] [place], [place] [address] IMMUNOFIXATION COMMENT Detected Normal [facility] Comment on above: Performed By: #### 3 084-1 #### KADE Sandra ([id number]) [facility] ([facility]) [address] [place], [place] [address] PATH REVIEW - SERUM IMMUNOFIXATION SEE COMMENT [facility] Comment on above: Result Comment: Revi ewed and approved by ALICE MORALES on 12/03/23 at 8:41 PM. Performed By: #### 3 084-1 #### KADE Sandra ([id number]) [facility] ([facility]) [address] [place], [place] [address] PATH REVIEW-SERUM PROTEIN ELECTROPHORESIS SEE COMMENT [facility] Comment on above: Result Comment: Revi ewed and approved by ALICE MORALES on 12/03/23 at 8:41 PM. Performed By: #### 3 084-1 #### KADE Sandra ([id number]) [facility] ([facility]) [address] [place] [address] 21194 PROTEIN ELECTROPHORESIS COMMENT Normal. [facility] Comment on above: Performed By: #### 3 084-1 #### KADE Sandra ([id number]) [facility] ([facility]) [address] [place], [place] [address] Urateon 11-28-2023 Urate [Mass/Vol] 1.8 mg/dL Low 2.3-6.7 [facility] Comment on above: Result Comment: Linda puncture immediately after or during the administration of Metamizole may lead to falsely low results. Testing should be performed immediately prior to Metamizole dosing. Performed By: #### 3 084-1 #### KADE Sandra ([id number]) [facility] ([facility]) [address] [place] [id number] XR HAND 3+ VIEWS BILATERALon 11-28-2023 XR HAND 3+ VIEWS BILATERAL Interpreted By: Daniel Martins, STUDY: XR HAND 3+ VIEWS BILATERAL; ; 11/28/2023 3:12 pm INDICATION: Signs/Symptoms:r/o erosiosn or calcinosis. COMPARISON: None. ACCESSION NUMBER(S): [id number] ORDERING CLINICIAN: JOSEPH SORIANO FINDINGS: Bilateral hands, three views of each There is no fracture. There is no dislocation. There are no degenerative changes. There is no erosion or chondrocalcinosis. There is no soft tissue abnormality seen. IMPRESSION: Normal radiographs of the hands MACRO: None Signed by: Daniel Martins 11/29/2023 8:41 PM Dictation workstation: [id number] [facility] XR SACROILIAC JOINTS 3+ VIEW Son 11-28-2023 XR SACROILIAC JOINTS 3+ VIEWS Interpreted By: Daniel Martins, STUDY: XR SACROILIAC JOINTS 3+ VIEWS; ; 11/28/2023 3:12 pm INDICATION: Signs/Symptoms:r/o erosions or sacroilitis. COMPARISON: None. ACCESSION NUMBER(S): [id number] ORDERING CLINICIAN: JOSEPH SORIANO FINDINGS: SI joints, three views There is no sclerosis or erosions in the SI joints. No degenerative change seen. There is no fracture. There is no dislocation. There is no lytic or sclerotic lesion. There is no soft tissue abnormality seen. IMPRESSION: Normal radiographs of the sacroiliac joints MACRO: None Signed by: Daniel Martins 11/29/2023 8:41 PM Dictation workstation: [id number] [facility] Anoscopyon 10-09-2023 Denisse Chiang MD 10/09/2023 2:20 PM Anoscopy Date/Time: 10/09/2023 1:37 PM Performed by: Denisse Chiang MD Authorized by: Denisse Chiang MD Consent: Consent obtained: Verbal Consent given by: Patient Procedure details: Internal hemorrhoids: yes (Right and left posterior, large, non-bleeding and non-prolapsing on exam today) Post-procedure details: Procedure completion: [facility] Work Phone: [facility] Work Phone: Physician Referralon 024 Physician Referral [phone] [id number]#1. 00TIFF Normal Abran [facility] Gastroenterology Office/Clin ic Noteon 09-25-2023 Gastroenterology Office/Clinic Note Chief Complaint chronic pancolonic UC HPI Staff Patient is a 43 year old female who presents today for a follow up to Colonoscopy on 09/10/23. Vit D 50,000 iu sent 07/16/23 for low vit. D. Taking Mesalamine for UC - effective. Denies bloody stools/diarrhea. Having solid stools, hemorrhoids and feels like her rectum is falling out . Last visit 07/11/23 w/Dr. Rivera: Assessment/Plan 1. Chronic pancolonic ulcerative colitis (K51.00: Ulcerative (chronic) pancolitis without complications) Dx: 2006 Symptoms since she was a kid Had bleeding from rectum singificantly 2006, had colonoscopy found to have colitis initially mesalamin, helped initially, stopped working 1 year switched to Imuran (not sure though), Dr. Weaver had many flare ups then started Humira, worked well, but had Lupus like symptoms and had Abs, Stephenson symptoms then Entyvio 2016 and 2019, worked very well, but she lost insurance, 10-20 BM with blood after she stopped it restarted mesalamine, working OK Current symptoms: no diarrhea, formed stool no blood Last colonoscopy 2 years ago showed minimal inflammation Currently she seems to be in a clinical remission on mesalamine, but 1 to make sure she is also on endoscopic remission if there is inflammation in the colonoscopy I would prefer to restart Entyvio we can discuss IV versus subcu For now also continue turmeric Mediterranean diet Will discuss health maintenance after colonoscopy Will also obtain labs for biologic therapy if needed Regarding her skin symptoms, she possibly has overlapping SLE with the face rash and Raynaud's phenomena, therefore I would like to refer her to rheumatology Colonoscopy: Impression and Plan 1. Small internal and external hemorrhoids 2. Mild sigmoid diverticulosis 3. Normal colonic mucosa throughout the colon, Sparks score 0. Random biopsies every 10 cm were taken to rule out dysplasia 4. Normal examined terminal ileum Recommendations: Repeat colonoscopy:: In 1 year. Pathology: Final Diagnosis (Verified) A: RIGHT COLON, BIOPSY: - Colonic mucosa within normal limits, however inactive wellhealed chronic colitis cannot be ruled out B: TRANSVERSE COLON, BIOPSY: - Colonic mucosa within normal limits, however inactive wellhealed chronic colitis cannot be ruled out C: LEFT COLON, BIOPSY: - Colonic mucosa within normal limits, however inactive wellhealed chronic colitis cannot be ruled out D: RECTUM, BIOPSY: - Inactive chronic colitis Laboratory Results CBC Basophil Absolute: 0 E9/L (07/11/23) Basophil Auto: 0.6 % (07/11/23) Eos Absolute: 0.5 E9/L (07/11/23) Eos Auto: 8 % (07/11/23) Hct: 38.8 % (07/11/23) HGB: 12.9 gm/dL (07/11/23) Lymph Absolute: 1.5 E9/L (07/11/23) Lymph Auto: 23.9 % (07/11/23) MCH: 29.3 pg (07/11/23) MCHC: 33.2 gm/dL (07/11/23) MCV: 88.2 fL (07/11/23) [place] Absolute: 0.5 E9/L (07/11/23) [place] Auto: 7.4 % (07/11/23) MPV: 8.6 fL (07/11/23) Neutro Absolute: 3.8 E9/L (07/11/23) Neutro Auto: 60.1 % (07/11/23) Platelet: 365 E9/L (07/11/23) RBC: 4.4 E12/L (07/11/23) RDW: 13.1 % (07/11/23) WBC: 6.4 E9/L (07/11/23) Vitamin D 25 Hydroxy: 20 ng/mL Low (07/11/23 09:33:00) CRP: <0.5 TB: negative Liver Studies Hep Bs Ag: Negative (07/11/23) Hep Bs Ab: * Reactive History of Present Illness c/o rectal prolapse after having a BM no other issues or concerns at today's visit Reviewed and discussed procedure and biopsy with the patient Review of Systems PHQ Score Initial Depression Screen Score: 0 SCORE All systems reviewed, negative; Except for above Physical Exam Vitals & Measurements HR: 70(Peripheral) RR: 18 BP: 116/80 HT: 65 in HT: 166 cm WT: 79 kg WT: 173.8 lb BMI: 28.67 General: in Nad Abdomen: Soft, NTND Procedure Colonoscopy: Impression and Plan 1. Small internal and external hemorrhoids 2. Mild sigmoid diverticulosis 3. Normal colonic mucosa throughout the colon, Sparks score 0. Random biopsies every 10 cm were taken to rule out dysplasia 4. Normal examined terminal ileum Recommendations: Repeat colonoscopy:: In 1 year. Pathology: Final Diagnosis (Verified) A: RIGHT COLON, BIOPSY: - Colonic mucosa within normal limits, however inactive wellhealed chronic colitis cannot be ruled out B: TRANSVERSE COLON, BIOPSY: - Colonic mucosa within normal limits, however inactive wellhealed chronic colitis cannot be ruled out C: LEFT COLON, BIOPSY: - Colonic mucosa within normal limits, however inactive wellhealed chronic colitis cannot be ruled out D: RECTUM, BIOPSY: - Inactive chronic colitis Assessment/Plan 1. Chronic pancolonic ulcerative colitis (K51.00: Ulcerative (chronic) pancolitis without complications) Dx: 2006 Symptoms since she was a kid Had bleeding from rectum significantly 2006, had colonoscopy found to have colitis initially mesalamine, helped initially, stopped working 1 year switched to Imuran (not sure though), Dr. Weaver had man (more content not included)... [facility] Comment on above: Result Comment: Elec tronically Signed By: Miguel HAQUE, Melissa Talavera\.br\Date and Time Signed: 09/25/23 15:18 EDT\.br\Electronically Co-Signed By: Penny Saldivar MA\.br\Date and Time Co-Signed: 09/25/23 15:17 EDT IntraOperative Documentson 0 09-12-2023 IntraOperative Documents [id number]. 00TIFF [facility] Consenton 09-11-2023 Consent [id number] .00TIFF [facility] Discharge Instructionson Discharge Instructions [id number] [facility] Main OR Intraoperative Recor don 09-11-2023 Main OR Intraoperative Record IntraOp Document Type FT Summary Primary Physician: Melissa Rivera MD Finalized Date/Time: 09/11/23 09:54:20 Pt. Name: RAMY MARTINEZ /Sex: 1980 Female Med Rec #: [id number] Physician: Melissa Rivera MD Financial #: [id number] Pt. Type: O Room/Bed: / Admit/Disch: 09/10/23 11:15:14 - 09/10/23 23:59:59 Institution: Case Times FT Entry 1 Patient Times In Room 09/10/23 13:24:00 Out Room 09/10/23 13:48:00 Procedure Times Start 09/10/23 13:29:00 Stop 09/10/23 13:45:00 Anesthesia Times Start 09/10/23 13:24:00 Stop 09/10/23 13:48:00 Time at [facility] 09/10/23 13:34:00 Last Modified By: Fidencio POP, David Martinez 09/10/23 13:49:23 General Comments: 09/11/2023 Chart opened for charge review per Zoraida Smith RN. [place] Case Attendance FT Entry 1 Entry 2 Entry 3 Case Attendee Evelio ROSS, PIECE DYEING MACHINE TENDER, Queen Fidencio POP, Simi Mckeon Role Performed PIECE DYEING MACHINE TENDER Pin Cleaner - Primary Staff - Other Time In 09/10/23 13:24:00 09/10/23 13:24:00 09/10/23 13:24:00 Time Out 09/10/23 13:48:00 09/10/23 13:48:00 09/10/23 13:48:00 Procedure COLONOSCOPY(.) COLONOSCOPY(.) COLONOSCOPY(.) Comments Dr. Mccabe supervising case Last Modified By: Fidencio RN, David Nicolas RN, David Nicolas RN, David Martinez 09/10/23 13:49:23 09/10/23 13:49:23 09/10/23 13:49:23 Entry 4 Entry 5 Case Attendee Salma ROSE, Betzy Rivera MD, Melissa Talavera Role Performed Scrub - Primary Surgeon - Primary Time In 09/10/23 13:24:00 09/10/23 13:24:00 Time Out 09/10/23 13:48:00 09/10/23 13:48:00 Procedure COLONOSCOPY(.) COLONOSCOPY(.) Comments Last Modified By: David Nicolas RN, RN, Morgan E 09/10/23 13:49:23 09/10/23 13:49:23 Perioperative Protocols FT Pre-Care Text: Implements protective measures prior to operative or invasive procedure, confirms identity before the operative or invasive procedure, verifies operative procedure, surgical site, and laterality Entry 1 Procedure(s) COLONOSCOPY(.) Patient Identity Birthday, ID Band Verified (select at Check, Patient least 2): Participation Consents / H and P Anesthesia Consent, Operative Site N/A Verified HandP, Surgery/Procedure Marking Verified Consent Surgical Site No Laterality Verified n/a Verified Procedure Verified Yes Correct Patient Yes Position Verified Availability Equipment, Medication Prep Dry n/a Verified (If Applicable) PreOp Antibiotic No Time Out Evelio ROSS, ARCHANA, [facility] Participants NRic, David Nicolas RN, Sparks, Micala E, Schafer CST, Miguel Paige MD, Melissa Talavera Time Out Complete 09/10/23 13:26:00 Outcomes Met? Yes Last Modified By: David Nicolas RN 09/10/23 13:27:21 Post-Care Text: The patient is free from signs and symptoms of injury caused by extraneous objects Allergy Information FT Pre-Care Text: Verifies allergies Entry 1 Allergies Reviewed? Yes Allergies Reviewed Self/Patient With Outcomes Met? Yes Last Modified By: David Nicolas RN 09/10/23 13:27:28 Post-Care Text: The patient received appropriate medication(s) safely administered during the perioperative period Surgical Procedures FT Entry 1 Procedure Description Procedure COLONOSCOPY Modifiers . Surgeon Description Colonoscopy with right colon biopsy, transverse colon biopsy, left colon biopsy, rectal biopsy Primary Procedure Yes Primary Surgeon Miguel HAQUE, Melissa Talavera Start 09/10/23 13:29:00 Stop 09/10/23 13:45:00 Anesthesia Type General Surgical Service Gastroenterology Wound Class 2 - Clean-Contaminated Last Modified By: David Nicolas RN 09/10/23 13:45:45 General Case Data FT Pre-Care Text: Classifies surgical wound, implements aseptic technique, initiates traffic control Entry 1 Case Information OR ENDO 1 FT Case Level Level 2 Wound Class 2 - Clean-Contaminated Specialty Gastroenterology ASA Class 3 Preop Diagnosis Chronic pancolonic Postop Same As Preop No ulcerative colitis Postop Diagnosis Small external Outcomes Met? Yes hemorrhoids, Internal hemorrhiods, Sigmoid diverticulosis Last Modified By: David Nicolas RN 09/10/23 13:58:06 Post-Care Text: The patient is free from signs and symptoms of infection Skin Assessment (Pre Procedure) FT Pre-Care Text: Implements protective measures to prevent skin/ tissue injury due to thermal or mechanical sources Evaluates for signs and symptoms of physical injury to skin and tissue Entry 1 Skin Integrity Dry, Warm Skin Abnormality No Outcomes Met? Yes Last Modified By: David Nicolas RN 09/10/23 13:28:22 Post-Care Text: The patient is free from signs and symptoms of injury caused by extraneous objects Patient Positioning FT Pre-Care Text: Identifies physical alterations that require additional precautions for procedure-specific positioning, verifies presence of prosthetics or corrective devices, positions the patient, evaluates the patient (more content not included)... [facility] Postoperative Documentson Postoperative Documents [id number] .00TIFF [facility] Consent for Treatmenton Consent for Treatment [id number] 0TIFF [facility] Discharge Instructionson Discharge Instructions JOSEZAIRA TODDSUZETTE Phillips :1980 Visit Date:09/10/2023 Inpatient Discharge Instructions Your Care Team Admitting Physician - Melissa Rivera MD Referring Physician - Melissa Rivera MD Reason for Your Visit CHRONIC PANCOLONIC UC Your Diagnosis Colitis, ulcerative Hx of colonic polyps Tests Performed Pathology Tissue Exam -- Results Pending -- Please visit your patient portal for your results or contact your primary care physician. This Is Your Medications List Turmeric albuterol (Ventolin HFA 90 mcg/inh Aerosol) clonazepam (ClonazePAM 0.5 mg Tab) ergocalciferol (Vitamin D 50,000 intl units (1.25 mg) oral capsule) ferrous sulfate (FeroSul 325 mg oral tablet) fexofenadine (Danya) fluticasone-salmeterol (Advair 100 mcg-50 mcg Powder) lamotrigine (Lamictal 25 mg Tab) mesalamine (Apriso 0.375 g oral capsule, extended release) trazodone (traZODONE 50 mg Tab) venlafaxine (venlafaxine 75 mg Cap-ER) Procedure History Colonoscopy (09/10/2023), Laparoscopic cholecystectomy (09/07/2017), Bilateral tubal ligation, Colonoscopy, Endometrial ablation, Hemorrhoids, Histology tonsillectomy, History of hernia repair. What to do next Instructions From Your Doctor Event Name Event Result Discharge Activity Resume normal activities in 24 hours Discharge Restrictions No driving for 24 hrs Discharge Diet(s) Regular Call Your Doctor For Persistent or heavy bleeding Discharge Instructions Discharge Instructions New Follow Up Appointments after Discharge Follow Up with Miguel HAQUE, ABDIAS Osorio, [facility] When: Comments: Call for any problems. Office to call for follow up appointment. Where: [address] [place] [address], [address] [phone] Medications What How Much When Why Instructions Next Dose Unchanged albuterol (Ventolin HFA 90 mcg/ inh Aerosol) 2 Puffs Inhalation 4 times a day as needed for Shortness of breath or wheezing Unchanged clonazepam (ClonazePAM 0.5 mg Tab) Unchanged ergocalciferol (Vitamin D 50,000 intl units (1.25 mg) oral capsule) 1 Capsules By Mouth Every week Duration: 6 Months Unchanged ferrous sulfate (FeroSul 325 mg oral tablet) Unchanged fexofenadine (Danya) Unchanged fluticasone-salmeterol (Advair 100 mcg-50 mcg Powder) Inhalation 2 times a day Unchanged lamotrigine (Lamictal 25 mg Tab) 2 Tablets By Mouth Every day Unchanged mesalamine (Apriso 0.375 g oral capsule, extended release) 4 Capsules By Mouth Once a day (in the morning) Chronic pancolonic ulcerative colitis Duration: 90 Days Unchanged trazodone (traZODONE 50 mg Tab) Unchanged Turmeric Unchanged venlafaxine (venlafaxine 75 mg Cap-ER) Test Results No qualifying data available. Allergies No Known Allergies Problems Ongoing - Any problem that you are currently receiving treatment for. BMI 38.0-38.9,adult Choledocholithiasis Chronic pancolonic ulcerative colitis Family history of malignant neoplasm of other organs or systems Family history of malignant neoplasm of trachea, bronchus and lung Education Materials Colonoscopy Care After Surgery Please read the instructions outlined below and refer to this sheet in the next few weeks. These discharge instructions provide you with general information on caring for yourself after you leave the hospital. Your doctor may also give you specific instructions. While your treatment has been planned according to the most current medical practices available, unavoidable complications occasionally occur. If you have any problems or questions after discharge, please call your doctor. ACTIVITY You may resume your regular activity, but move at a slower pace for the next 24 hours. Take frequent rest periods for the next 24 hours. Walking will help get rid of the air and reduce the bloated feeling in your abdomen (belly). No driving for 24 hours (because of the anesthesia (medicine) used during the test). You may shower. Do not sign any important legal documents or operate any machinery for 24 hours (because of the anesthesia used during the test). NUTRITION Drink plenty of fluids. You may resume your normal diet as instructed by your doctor. Begin with a light meal and progress to your normal diet. Heavy or fried foods are harder to digest and may make you feel nauseated (sick to your stomach). Avoid alcoholic beverages for 24 hours or as instructed. MEDICATIONS You may resume your normal medications unless your doctor tells you otherwise. WHAT YOU CAN EXPECT TODAY Some feelings of bloating in the abdomen. Passage of more gas than usual. Spotting of blood in your stool or on the toilet paper. FOLLOW-UP Your doctor will discuss the results of your test with you. SEEK IMMEDIATE MEDICAL ATTENTION IF: There is more than a spotting of blood in your stool. There is abdominal distention (your abdomen is swollen). There is vomiting. (more content not included)... Normal [facility] Comment on above: Result Comment: Elec tronically Signed By: Junior POP, Myah Jones\.br\Date and Time Signed: 09/10/23 13:55 EDT Endoscopic Procedure Report - Otheron 09-10-2023 Endoscopic Procedure Report - Other Patient: RAMY MARTINEZ Age: 43 years Sex: Female : 1980 Associated Diagnoses: None Author: Melissa Rivera MD Pre-Procedure Procedure Date 09/10/2023 13:51:00 . Procedure Type: Colonoscopy with biopsy. Procedure provider Performed by Melissa Rivera MD. Current history and physical Documented on chart. Laparoscopic cholecystectomy ([id number]) on 09/07/2017 at 37 Years. Hemorrhoids ([id number]). History of hernia repair (4454141593). Bilateral tubal ligation (928839013). Histology tonsillectomy (667771934). Endometrial ablation (909489346). Colonoscopy (277256455).. Past Medical History No active or resolved past medical history items have been selected or recorded.. Family History Metastatic cancer Mother Diverticulosis of colon Grandparent Grandparent . Procedure History Laparoscopic cholecystectomy ([id number]) on 09/07/2017 at 37 Years. Hemorrhoids (910356104). History of hernia repair (7846325553). Bilateral tubal ligation (955841422). Histology tonsillectomy (636107522). Endometrial ablation (071343781). Colonoscopy (052681443).. Colorectal neoplasm risk assessment High risk UC. . Informed Consent After discussing the rationale, risks and benefits, and alternatives to this procedure, the patient provided signed consent for the procedure. Pre-procedure diagnosis: Diagnostic: Colitis. Medications (Selected) Inpatient Medications Ordered Lactated Ringers IV Saida 1000 mL 1,000 mL: 1,000 mL, IV, 100 mL/hr, Routine, Start date 09/10/23 11:33:00 EDT, 10 hour(s), Total volume (mL): 1,000, 82.6 kg, 1.95, m2 Sodium Chloride 0.9% IV Saida 1000 mL 1,000 mL: 1,000 mL, IV, 20 mL/hr, Routine, Start date 09/10/23 10:53:00 EDT, 50 hour(s), Total volume (mL): 1,000 Prescriptions Prescribed Apriso 0.375 g oral capsule, extended release: 1.5 gm = 4 cap(s), Oral, qAM, X 90 day(s), # 360 cap(s), Refills(s) 4, Pharmacy: [facility] #[id number], 166, cm, 07/06/22 13:48:00 EST, Height/Length Dosing, 98.7, kg, 07/06/22 13:48:00 EST, Weight Dosing Vitamin D 50,000 intl units (1.25 mg) oral capsule: 50,000 International_Unit = 1 cap(s), Oral, qWeek, X 6 months, # 26 cap(s), Refills(s) 0, Pharmacy: [facility] #[id number], 166, cm, 07/11/23 8:09:00 EST, Height/Length Dosing, 82.6, kg, 07/11/23 8:09:00 EST, Weight Dosing Documented Medications Documented Advair 100 mcg-50 mcg Powder: Inhalation, BID, Refill(s) 0 Danya: Refills(s) 0 ClonazePAM 0.5 mg Tab: Refills(s) 0 FeroSul 325 mg oral tablet: Refills(s) 0 Lamictal 25 mg Tab: 50 mg = 2 tab(s), Oral, Daily, Refills(s) 0 Turmeric: Refill(s) 0 Ventolin HFA 90 mcg/inh Aerosol: 2 puff(s), Inhalation, QID Shortness of breath or wheezing, Refill(s) 0, Asthma traZODONE 50 mg Tab: Refills(s) 0 venlafaxine 75 mg Cap-ER: Refills(s) 0 ASA Classification: Class II. . Monitoring: See anesthesia record. . Procedure The procedure was performed in the hospital. See anesthesia record for sedation given during procedure. The patient was positioned starting in the left lateral decubitus position. Endoscope type used was an adult-size. The endoscope was lubricated then introduced through the anus. The scope was advanced to the cecum. No difficulties encountered during the procedure. The bowel preparation quality was adequate (see polyps greater than or equal to 6 millimeters). The patient tolerated the procedure well. Last colonoscopy Time to cecum: min Time of withdrawal: min Findings 1. Small internal and external hemorrhoids 2. Mild sigmoid diverticulosis 3. Normal colonic mucosa throughout the colon, Sparks score 0. Random biopsies every 10 cm were taken to rule out dysplasia 4. Normal examined terminal ileum Images Procedure images: Rec1_hd_video_2023__ [id number].jpg Rec1_hd_video_2023__ [id number].jpg Rec1_hd_video_2023__ [id number].jpg Rec1_hd_video_2023__ [id number].jpg Rec1_hd_video_2023__ [id number].jpg Rec1_hd_video_2023__ [id number].jpg Rec1_hd_video_2023__ [id number].jpg . Post-Procedure Complications: none. Estimated blood loss: Minimal. Specimens: sent to pathology. Devices/ implants: none left in place. Impression and Plan 1. Small internal and external hemorrhoids 2. Mild sigmoid diverticulosis 3. Normal colonic mucosa throughout the colon, Sparks score 0. Random biopsies every 10 cm were taken to rule out dysplasia 4. Normal examined terminal ileum Recommendations: Repeat colonoscopy:: In 1 year. Follow-up:: in clinic for 1-2 weeks when pathology is available. Diet:: Previous. Medication resumption:: Continue current medications, Avoid NSAIDs. Return to activities:: (more content not included)... Normal [facility] Comment on above: Result Comment: Elec tronically Signed By: Miguel HAQUE, Melissa Talavera\.etienne\Date and Time Signed: 09/10/23 13:52 EDT Other Comment: Robyn felipe Attachment - attachment storage system not supported [id number] Can be viewed in source systemMissing Attachment - attachment storage system not supported [id number] Can be viewed in source systemMissing Attachment - attachment storage system not supported [id number] Can be viewed in source systemMissing Attachment - attachment storage system not supported [id number] Can be viewed in source systemMissing Attachment - attachment storage system not supported [id number] Can be viewed in source systemMissing Attachment - attachment storage system not supported [id number] Can be viewed in source systemMissing Attachment - attachment storage system not supported [id number] Can be viewed in source system Inpatient Patient Summaryon 09-10-2023 Inpatient Patient Summary [address] [address] [facility] Clinical Discharge Instructions PERSON INFORMATION Name: RAMY MARTINEZ PHYSICIANS Admitting Physician: Melissa Rivera MD Attending Physician: Melissa Rivera MD PCP: Chris HAQUE, Yaquelin Discharge Diagnosis: Colitis, ulcerative Comment: PATIENT EDUCATION INFORMATION Instructions: Medication Leaflets: Follow up: MEDICATION LIST Medications to Continue with No Changes Other Medications albuterol (Ventolin HFA 90 mcg/inh Aerosol) 2 Puffs Inhalation 4 times a day as needed Shortness of breath or wheezing. clonazepam (ClonazePAM 0.5 mg Tab) ergocalciferol (Vitamin D 50,000 intl units (1.25 mg) oral capsule) 1 Capsules By Mouth every week for 6 Months. Refills: 0. ferrous sulfate (FeroSul 325 mg oral tablet) fexofenadine (Danya) fluticasone-salmeterol (Advair 100 mcg-50 mcg Powder) Inhalation 2 times a day. lamotrigine (Lamictal 25 mg Tab) 2 Tablets By Mouth every day. mesalamine (Apriso 0.375 g oral capsule, extended release) 4 Capsules By Mouth once a day (in the morning) for 90 Days. Refills: 4. trazodone (traZODONE 50 mg Tab) Turmeric venlafaxine (venlafaxine 75 mg Cap-ER) Comment: Normal [facility] Main OR PACU I [facility] Main OR PACU I Record PACU Phase I Docum ent Type FT Summary Primary Physician: Melissa Rivera MD Finalized Date/Time: 09/10/23 14:23:17 Pt. Name: RAMY MARTINEZ Jacqueline [place]/Sex: 1980 Female Med Rec #: [id number] Physician: Melissa Rivera MD Financial #: [id number] Pt. Type: O Room/Bed: / Admit/Disch: 09/10/23 11:15:14 - Institution: Case Times PACU I FT Pre-Care Text: Identifies barriers to communication and implements measures to provide psychological support Develops individualized plan of care, and ensures continuity of care Maintains patient's dignity and privacy, and maintains patient confidentiality Identifies and reports philosophical, cultural, and spiritual beliefs and values Identifies individual values and wishes concerning care Implements aseptic technique, and administers prescribed antibiotic therapy and immunizing agents as ordered Evaluates postoperative tissue perfusion Implements thermoregulation measures, and monitors body temperature Evaluates postoperative respiratory status Evaluates postoperative cardiac status Evaluates postoperative neurological status Assesses pain control, collaborated in initiating patient-controlled analgesia and implements alternative methods of pain control Verifies allergies, administers prescribed medications and solutions, evaluates response to medications Entry 1 In PACU I 09/10/23 13:49:00 Discharge from PACU 09/10/23 14:19:00 I Outcomes Met? Yes Last Modified By: Junior POP, Myah Jones 09/10/23 14:23:03 Post-Care Text: The patient demonstrates knowledge of the expected response to the operative or invasive procedure The patient's care is consistent with the individualized perioperative plan of care The patient's right to privacy is maintained The patient's value system, lifestyle, ethnicity, and culture are considered, respected, and incorporated into the perioperative plan of care The patient participates in decisions affecting his or her perioperative plan of care The patient is free from signs and symptoms of infection The patient has wound/tissue perfusion consistent with or improved from baseline levels established preoperatively The patient is at or returning to normothermia at the conclusion of the immediate postoperative period The patient's respiratory function is consistent with or improved from baseline levels established preoperatively The patient's cardiovascular status is consistent with or improved from baseline levels established preoperatively The patient's cardiovascular status is consistent with or improved from baseline levels established preoperatively The patient demonstrates and/or reports adequate pain control throughout the perioperative period The patient received appropriate medication(s), safely administered during the perioperative period Acuity Level PACU I FT Entry 1 Start Time 09/10/23 13:49:00 Stop Time 09/10/23 14:19:00 Acuity Level Acuity Level I Last Modified By: Myah Pacheco RN 09/10/23 14:23:14 Finalized By: Myah Pacheco RN Document Signatures Signed By: Myah Pacheco RN 09/10/23 14:[address] [facility] Main OR Preoperative Recordo n 09-10-2023 Main OR Preoperative Record Holding Area Document Type FT Summary Primary Physician: Melissa Rivera MD Finalized Date/Time: 09/10/23 11:34:36 Pt. Name: JUANRAMY/Sex: 1980 Female Med Rec #: [id number] Physician: Melissa Rivera MD Financial #: [id number] Pt. Type: O Room/Bed: / Admit/Disch: 09/10/23 11:15:14 - Institution: Case Times Holding FT Pre-Care Text: Verifies consent for planned procedure, identifies individual values and wishes concerning care, includes family members in perioperative teaching Secures patient's records' belongings, and valuables, maintains patient's dignity and privacy, and maintains patient confidentiality Entry 1 In Holding 09/10/23 11:28:00 Outcomes Met? Yes Last Modified By: Jia Tabares RN 09/10/23 11:28:37 Post-Care Text: The patient participates in decisions affecting his or her perioperative plan of care The patient's right to privacy is maintained Surgery Checklist FT Entry 1 Patient Birthday, ID Band Procedure History and Physical, Identification: Check, Patient Verification: Surgical Consent, With Participation Patient NPO after Midnight: Yes Date/Time: 09/10/23 07:00:00 Personal Items: Glasses, Jewelry Personal Items nose ring, ring, clothes Comment: Limitations: no Complaints of Pain: No Pain Comment: no Operative Site n/a Marking: Marked By: n/a Availability Equipment Verified: Does Patient Smoke No Patient states Yes Comment - Adult Jean- Fiance postop adult Supervision supervision available Case Cancelled in No Holding Area see comments below for reason Last Modified By: Jia Tabares RN 09/10/23 11:34:06 General Comments: 100% prep in patient tolerated well, last bowel movement was clear jamison./SARAHYRN Finalized By: Jia Tabares RN Document Signatures Signed By: Jia Tabares RN 09/10/23 11:34 Jia Tabares RN 09/10/23 11:[address] [facility] Monitor Recordon 09-10-2023 Monitor Record [id number] Normal [facility] Monitor Record [id number] Normal [facility] Outpatient Surgery Discharge Instructionon 09-10-2023 Outpatient Surgery Discharge Instruction [place] [id number] Patient Discharge Instructions PERSON INFORMATION Name: RAMY MARTINEZ Date of : 1980 Current Date: 09/10/2023 13:27:26 PHYSICIANS Admitting Physician: Miguel HAQUE, Melissa Talavera Discharge Diagnosis: Colitis, ulcerative RAMY MARTINEZ has been given the following list of follow-up instructions, prescriptions, and patient education materials: PATIENT FOLLOW-UP INFORMATION Diet: Regular Discharge Activity: Resume normal activities in 24 hours Discharge Restrictions: No driving for 24 hrs Call Your Doctor For: Persistent or heavy bleeding IF UNABLE TO CONTACT YOUR PHYSICIAN AND YOU FEEL IT IS AN EMERGENCY, GO TO THE NEAREST EMERGENCY ROOM OR CALL 911 IJUAN DANIELLE M, have received the attached patient education materials/instructions and have verbalized understanding: May we do a follow up call? Yes No I was present when discharge instructions were given Patient Signature Date Clinican/Nurse Signature ___ Date Follow up: Pharmacy Information: You may receive a survey from [facility] asking you to rate your care experience. Your feedback is important and will help us understand what we do well and how we can improve the quality of care we provide to you, your loved ones and our community. It?s an honor to serve you. Thank you for choosing [facility] HERE ARE THE MEDICATION CHANGES THAT OCCURRED DURING YOUR HOSPITAL STAY Medications to Continue with No Changes Other Medications albuterol (Ventolin HFA 90 mcg/inh Aerosol) 2 Puffs Inhalation 4 times a day as needed Shortness of breath or wheezing. clonazepam (ClonazePAM 0.5 mg Tab) ergocalciferol (Vitamin D 50,000 intl units (1.25 mg) oral capsule) 1 Capsules By Mouth every week for 6 Months. Refills: 0. ferrous sulfate (FeroSul 325 mg oral tablet) fexofenadine (Danya) fluticasone-salmeterol (Advair 100 mcg-50 mcg Powder) Inhalation 2 times a day. lamotrigine (Lamictal 25 mg Tab) 2 Tablets By Mouth every day. mesalamine (Apriso 0.375 g oral capsule, extended release) 4 Capsules By Mouth once a day (in the morning) for 90 Days. Refills: 4. trazodone (traZODONE 50 mg Tab) Turmeric venlafaxine (venlafaxine 75 mg Cap-ER) PATIENT EDUCATION INFORMATION Instructions: Medication Leaflets: Normal [facility] Patient Education - Texton 0 09-10-2023 Patient Education - Text Colonoscopy Care After Surgery Please read the instructions outlined below and refer to this sheet in the next few weeks. These discharge instructions provide you with general information on caring for yourself after you leave the hospital. Your doctor may also give you specific instructions. While your treatment has been planned according to the most current medical practices available, unavoidable complications occasionally occur. If you have any problems or questions after discharge, please call your doctor. ACTIVITY You may resume your regular activity, but move at a slower pace for the next 24 hours. Take frequent rest periods for the next 24 hours. Walking will help get rid of the air and reduce the bloated feeling in your abdomen (belly). No driving for 24 hours (because of the anesthesia (medicine) used during the test). You may shower. Do not sign any important legal documents or operate any machinery for 24 hours (because of the anesthesia used during the test). NUTRITION Drink plenty of fluids. You may resume your normal diet as instructed by your doctor. Begin with a light meal and progress to your normal diet. Heavy or fried foods are harder to digest and may make you feel nauseated (sick to your stomach). Avoid alcoholic beverages for 24 hours or as instructed. MEDICATIONS You may resume your normal medications unless your doctor tells you otherwise. WHAT YOU CAN EXPECT TODAY Some feelings of bloating in the abdomen. Passage of more gas than usual. Spotting of blood in your stool or on the toilet paper. FOLLOW-UP Your doctor will discuss the results of your test with you. SEEK IMMEDIATE MEDICAL ATTENTION IF: There is more than a spotting of blood in your stool. There is abdominal distention (your abdomen is swollen). There is vomiting. You have a temperature over 101.5 F. There is abdominal pain or discomfort that is severe or gets worse throughout the day. Diverticulosis Many people have small pouches in their colon called diverticulum. The diverticulum bulge outward through weak spots in the colon. You could have one or more of these pouches in the colon. The condition of having these pouches in the colon is called diverticulosis or diverticular disease. Diverticulosis is usually diagnosed by tests to evaluate something else. For example, you may have had a colonoscopy to screen for colon cancer when the diverticulosis was found. Most people with diverticulosis do not have any discomfort or problems. If symptoms develop, they may include mild cramps, bloating, and constipation. A complication of this condition is called diverticulitis. This is when the diverticulum become inflamed and infected. How to treat diverticulosis: Increasing the amount of fiber in the diet may reduce symptoms of diverticulosis and prevent complications such as diverticulitis (infected diverticuli). Fiber keeps stool soft and lowers pressure inside the colon so that bowel contents can move through easily. You should eat 20 to 35 grams of fiber each day. The table below shows the amount of fiber in some foods that you can easily add to your diet. Adding fiber slowly may decrease the bloating and fullness sometimes felt with an immediate high fiber diet. The doctor may also recommend taking a fiber product such as Citrucel or Metamucil once a day. In the past people with diverticulosis were to avoid nuts, corn, and seeds. This has not been found to be true. If you find that certain foods create cramping or bloating, avoid that food. Foods high in fiber include: Fresh fruits, fresh vegetables, legumes (beans), whole wheat bread, bran muffins or cereal, and nuts. See the table below for examples of high fiber foods. Remember, your goal is 20-35 grams per day. Amount of fiber in different foods Food Serving Grams of fiber Fruits Apple (with skin) 1 medium apple 4.4 Banana 1 medium banana 3.1 Oranges 1 orange 3.1 Prunes 1 cup, pitted 12.4 Juices Apple, unsweetened, w/added ascorbic acid 1 cup 0.5 Grapefruit, white, canned, sweetened 1 cup 0.2 Grape, unsweetened, w/added ascorbic acid 1 cup 0.5 Lorane 1 cup 0.7 Vegetables Cooked Green beans 1 cup 4.0 Carrots 1/2 cup sliced 2.3 Peas 1 cup 8.8 Potato (baked, with skin) 1 medium potato 3.8 Raw [place] (with peel) 1 cucumber 1.5 Lettuce 1 cup shredded 0.5 Tomato 1 medium tomato 1.5 Spinach 1 cup 0.7 Legumes Baked beans, canned, no salt added 1 cup 13.9 Kidney beans, canned 1 cup 13.6 Ramirez beans, canned 1 cup 11.6 Lentils, boiled 1 cup 15.6 Breads, pastas, flours Bran muffins 1 medium muffin 5.2 Oatmeal, cooked 1 cup 4.0 White bread 1 slice 0.6 Whole-wheat bread 1 slice 1.9 Pasta and rice, cooked Macaroni 1 cup 2.5 Rice, brown 1 cup 3.5 Rice, white 1 cup 0.6 Spaghetti (regular) 1 cup 2.5 Nuts Almonds 1/2 cup 8.7 Peanuts 1/2 cup 7.9 Chart from UpDate 2012. SEEK IMMEDIATE MEDIC (more content not included)... Normal [facility] Progress Note-Physicianon Progress Note-Physician Patient: RAMY MARTINEZ Age: 43 years Sex: Female : 1980 Associated Diagnoses: None Author: Benito Mccabe DO Postoperative Information Postoperative disposition: Postoperative disposition: To PACU. Anesthetic utilized: General. Health Status Allergies: Allergic Reactions (Selected) No Known Allergies Current medications: (Selected) Inpatient Medications Ordered Lactated Ringers IV Saida 1000 mL 1,000 mL: 1,000 mL, IV, 100 mL/hr, Routine, Start date 09/10/23 11:33:00 EDT, 10 hour(s), Total volume (mL): 1,000, 82.6 kg, 1.95, m2 Sodium Chloride 0.9% IV Saida 1000 mL 1,000 mL: 1,000 mL, IV, 20 mL/hr, Routine, Start date 09/10/23 10:53:00 EDT, 50 hour(s), Total volume (mL): 1,000 Prescriptions Prescribed Apriso 0.375 g oral capsule, extended release: 1.5 gm = 4 cap(s), Oral, qAM, X 90 day(s), # 360 cap(s), Refills(s) 4, [facility]acy: [facility] #[id number], 166, cm, 07/06/22 13:48:00 EST, Height/Length Dosing, 98.7, kg, 07/06/22 13:48:00 EST, Weight Dosing Vitamin D 50,000 intl units (1.25 mg) oral capsule: 50,000 International_Unit = 1 cap(s), Oral, qWeek, X 6 months, # 26 cap(s), Refills(s) 0, [facility]: [facility] #[id number], 166, cm, 07/11/23 8:09:00 EST, Height/Length Dosing, 82.6, kg, 07/11/23 8:09:00 EST, Weight Dosing Documented Medications Documented Advair 100 mcg-50 mcg Powder: Inhalation, BID, Refill(s) 0 Danya: Refills(s) 0 ClonazePAM 0.5 mg Tab: Refills(s) 0 FeroSul 325 mg oral tablet: Refills(s) 0 Lamictal 25 mg Tab: 50 mg = 2 tab(s), Oral, Daily, Refills(s) 0 Turmeric: Refill(s) 0 Ventolin HFA 90 mcg/inh Aerosol: 2 puff(s), Inhalation, QID Shortness of breath or wheezing, Refill(s) 0, Asthma traZODONE 50 mg Tab: Refills(s) 0 venlafaxine 75 mg Cap-ER: Refills(s) 0, Home Medications (11) Active Advair 100 mcg-50 mcg Powder , Inhalation, BID Danya Apriso 0.375 g oral capsule, extended release 1.5 gm = 4 cap(s), Oral, qAM ClonazePAM 0.5 mg Tab FeroSul 325 mg oral tablet Lamictal 25 mg Tab 50 mg = 2 tab(s), Oral, Daily traZODONE 50 mg Tab Turmeric venlafaxine 75 mg Cap-ER Ventolin HFA 90 mcg/inh Aerosol 2 puff(s), PRN, Inhalation, QID Vitamin D 50,000 intl units (1.25 mg) oral capsule 50,000 International_Unit = 1 cap(s), Oral, qWeek Problem list: All Problems Acute cholecystitis / SNOMED CT 450067369 / Confirmed Acute ulcerative colitis / SNOMED CT 915613619 / Confirmed Asthma / SNOMED CT 177766804 / Confirmed no problems BMI 38.0-38.9,adult / SNOMED CT 810426750 / Confirmed Choledocholithiasis / SNOMED CT 589857784 / Confirmed Chronic pancolonic ulcerative colitis / SNOMED CT 1035761622 / Confirmed Diabetes diet control / SNOMED CT 636474351 / Confirmed Family history of malignant neoplasm of other organs or systems / SNOMED CT 294851180 / Confirmed Family history of malignant neoplasm of trachea, bronchus and lung / SNOMED CT 398246805 / Confirmed Resolved: At Risk For Unstable Blood Glucose Level / IMO 0937345 Problem added due to documentation that the patient has diabetes. Resolved due to patient discharge. Canceled: Ulcerative pancolitis / SNOMED CT 9679501997 Physical Examination Vital Signs 09/10/2023 13:45 EDT Heart Rate Monitored 90 bpm bpm Respiratory Rate 14 br/min br/min Respiratory Rate Monitored 12 br/min br/min Systolic Blood Pressure 112 mmHg mmHg Diastolic Blood Pressure 67 mmHg mmHg SpO2 100 % % 09/10/2023 13:42 EDT Systolic Blood Pressure 109 mmHg mmHg Diastolic Blood Pressure 64 mmHg mmHg 09/10/2023 13:40 EDT Heart Rate Monitored 85 bpm bpm Respiratory Rate 14 br/min br/min Respiratory Rate Monitored 13 br/min br/min SpO2 100 % % 09/10/2023 13:39 EDT Systolic Blood Pressure 116 mmHg mmHg Diastolic Blood Pressure 61 mmHg mmHg 09/10/2023 13:36 EDT Systolic Blood Pressure 113 mmHg mmHg Diastolic Blood Pressure 63 mmHg mmHg 09/10/2023 13:35 EDT Heart Rate Monitored 82 bpm bpm Respiratory Rate 13 br/min br/min Respiratory Rate Monitored 12 br/min br/min SpO2 100 % % 09/10/2023 13:33 EDT Systolic Blood Pressure 133 mmHg mmHg Diastolic Blood Pressure 67 mmHg mmHg 09/10/2023 13:30 EDT Heart Rate Monitored 84 bpm bpm Respiratory Rate 18 br/min br/min Respiratory Rate Monitored 13 br/min br/min Systolic Blood Pressure 133 mmHg mmHg Diastolic Blood Pressure 100 mmHg mmHg SpO2 100 % % 09/10/2023 13:27 EDT Systolic Blood Pressure 151 mmHg mmHg Diastolic Blood Pressure 88 mmHg mmHg 09/10/2023 13:25 EDT Respiratory Rate 12 br/min br/min Respiratory Rate Monitored 22 br/min br/min Systolic Blood Pressure 138 mmHg mmHg Diastolic Blood Pressure 109 mmHg mmHg SpO2 87 % % 09/10/2023 11:40 EDT Temperature Temporal Artery 36.4 DegC Heart Rate Monitored 83 bpm Respiratory Rate 16 br/min Systolic Blood Pressure 126 mmHg Diastolic Blood Pressure 86 mmHg Blood Pressure Location Left arm SpO2 100 % Pain Assessment Assessment Anesthetic outcome No anesthetic complications noted. Lesly (more content not included)... Normal [facility] Comment on above: Result Comment: Elec tronically Signed By: Benito Mccabe DO\.br\Date and Time Signed: 09/10/23 14:10 EDT Progress Note-Physician Patient: RAMY MARTINEZ Age: 43 years Sex: Female : 1980 Associated Diagnoses: None Author: Benito Mccabe DO Preoperative Information Anesthesia history: Patient history: None. Family history+: None. Anesthesia results Informed consent: Signed by patient. Including risks, benefits, and alternatives related to the: Anesthetic plan, Postoperative pain management plan. Re-evaluation prior to induction: Benito Mccabe DO. Health Status Allergies: Allergic Reactions (Selected) No Known Allergies, Allergies (1) Active Severity Reaction No Known Allergies None Documented Current medications: (Selected) Inpatient Medications Ordered Lactated Ringers IV Saida 1000 mL 1,000 mL: 1,000 mL, IV, 100 mL/hr, Routine, Start date 09/10/23 11:33:00 EDT, 10 hour(s), Total volume (mL): 1,000, 82.6 kg, 1.95, m2 Sodium Chloride 0.9% IV Saida 1000 mL 1,000 mL: 1,000 mL, IV, 20 mL/hr, Routine, Start date 09/10/23 10:53:00 EDT, 50 hour(s), Total volume (mL): 1,000 Prescriptions Prescribed Apriso 0.375 g oral capsule, extended release: 1.5 gm = 4 cap(s), Oral, qAM, X 90 day(s), # 360 cap(s), Refills(s) 4, [facility]acy: [facility] #[id number], 166, cm, 07/06/22 13:48:00 EST, Height/Length Dosing, 98.7, kg, 07/06/22 13:48:00 EST, Weight Dosing Sutab oral tablet: See Instructions, 1 EA, Refill(s) 0, Please follow instructions per packaging and physician's handout, [facility] #[id number], 166, cm, 07/11/23 8:09:00 EST, Height/Length Dosing, 82.6, kg, 07/11/23 8:09:00 EST, Weight Dosing Vitamin D 50,000 intl units (1.25 mg) oral capsule: 50,000 International_Unit = 1 cap(s), Oral, qWeek, X 6 months, # 26 cap(s), Refills(s) 0, Pharmacy: [facility] #[id number], 166, cm, 07/11/23 8:09:00 EST, Height/Length Dosing, 82.6, kg, 07/11/23 8:09:00 EST, Weight Dosing Documented Medications Documented Advair 100 mcg-50 mcg Powder: Inhalation, BID, Refill(s) 0 Danya: Refills(s) 0 ClonazePAM 0.5 mg Tab: Refills(s) 0 FeroSul 325 mg oral tablet: Refills(s) 0 Turmeric: Refill(s) 0 Ventolin HFA 90 mcg/inh Aerosol: 2 puff(s), Inhalation, QID Shortness of breath or wheezing, Refill(s) 0, Asthma traZODONE 50 mg Tab: Refills(s) 0 venlafaxine 75 mg Cap-ER: Refills(s) 0, Home Medications (11) Active Advair 100 mcg-50 mcg Powder , Inhalation, BID Danya Apriso 0.375 g oral capsule, extended release 1.5 gm = 4 cap(s), Oral, qAM ClonazePAM 0.5 mg Tab FeroSul 325 mg oral tablet Sutab oral tablet See Instructions traZODONE 50 mg Tab Turmeric venlafaxine 75 mg Cap-ER Ventolin HFA 90 mcg/inh Aerosol 2 puff(s), PRN, Inhalation, QID Vitamin D 50,000 intl units (1.25 mg) oral capsule 50,000 International_Unit = 1 cap(s), Oral, qWeek , Medications (2) Active Scheduled: (0) Continuous: (2) Lactated Ringers 1,000 mL 1,000 mL, IV, 100 mL/hr Sodium Chloride 0.9% 1,000 mL 1,000 mL, IV, 20 mL/hr PRN: (0) Problem list: All Problems Acute cholecystitis / SNOMED CT 047327024 / Confirmed Acute ulcerative colitis / SNOMED CT 048146831 / Confirmed Asthma / SNOMED CT 088337305 / Confirmed no problems BMI 38.0-38.9,adult / SNOMED CT 601825327 / Confirmed Choledocholithiasis / SNOMED CT 863174283 / Confirmed Chronic pancolonic ulcerative colitis / SNOMED CT 2480838238 / Confirmed Diabetes diet control / SNOMED CT 362275297 / Confirmed Family history of malignant neoplasm of other organs or systems / SNOMED CT 207629617 / Confirmed Family history of malignant neoplasm of trachea, bronchus and lung / SNOMED CT 468239809 / Confirmed Resolved: At Risk For Unstable Blood Glucose Level / IMO 1681696 Problem added due to documentation that the patient has diabetes. Resolved due to patient discharge. Canceled: Ulcerative pancolitis / SNOMED CT 3929742286, Active Problems (9) Acute cholecystitis Acute ulcerative colitis Asthma BMI 38.0-38.9,adult Choledocholithiasis Chronic pancolonic ulcerative colitis Diabetes diet control Family history of malignant neoplasm of other organs or systems Family history of malignant neoplasm of trachea, bronchus and lung Histories Past Medical History: No active or resolved past medical history items have been selected or recorded. Family History: Metastatic cancer Mother Diverticulosis of colon Grandparent Grandparent Procedure history: Laparoscopic cholecystectomy (40512070) on 09/07/2017 at 37 Years. Hemorrhoids (906440136). History of hernia repair (8405389321). Bilateral tubal ligation (550072074). Histology tonsillectomy (997972412). Endometrial ablation (232600366). Colonoscopy (747477955). Social History Social & Psychosocial Habits Alcohol 07/11/2023 Risk Assessment: Denies Alcohol Use Substance Abuse 07/11/2023 Risk Assessment: Denies Substance Abuse Tobacco 07/11/2023 Risk Assessment: Denies Tobacco Use 07/11/2023 Tobacco Use: Never (less than 100 in l Smokeless tobacco use: Never 07/11/2023 Tobacco (more content not included)... Normal [facility] Comment on above: Result Comment: Elec tronically Signed By: Benito Mccabe DO.br\Date and Time Signed: 09/10/23 11:33 EDT Provider Letteron 08-30-2023 Provider Letter August 30, 2023 RAMY [address]ARTINEZ [address] [place] [address] : 1980 Dear Ramy, We have been trying to reach you with no success. Please call us at [phone] in regards to your referral. Thank you for your prompt attention to this matter. Sincerely, [facility] Insurance Correspondenceon 0 08-22-2023 Insurance Correspondence [id number] [facility] CHEMISTRYOrdered By: SYSTEM SYSTEM on 07-11-2023 25-hydroxyvitamin D3 [Mass/Vol] 20.0 ng/mL Low 30.0 - 100.0 ng/mL Remisol Chem CRP [Mass/Vol] mg/dL Normal <=1.9mg/dL Remisol Ch em HEMATOLOGYOrdered By: SYSTEM SYSTEM on 07-11-2023 Basophils/100 WBC (Bld) 0.6 % Normal 0.0 - 2.0 % Remisol Heme Basophils/Leukocytes Auto (Bld) [Pure # fraction] 0.0 E9/L Normal 0.0 - 0.2 E9/L Remisol [facility]e Eosinophils (Bld) [#/Vol] 0.5 E9/L Normal 0.0 - 0.5 E9/L Remisol [facility]e Eosinophils/100 WBC (Bld) 8.0 % Normal 0.0 - 8.0 % [facility] Comment on above: Result Comment: Veri fied with slide review Erythrocyte distribution width (RBC) [Ratio] 13.1 % Normal 10.9 - 14.2 % Remisol Heme Hematocrit (Bld) [Volume fraction] 38.8 % Normal 34.0 - 46.0 % Remisol Heme Hemoglobin (Bld) [Mass/Vol] 12.9 g/dL Normal 12.0 - 16.0 gm/dL Remisol Heme Lymphocytes (Bld) [#/Vol] 1.5 E9/L Normal 1.0 - 4.0 E9/L Remisol Heme Lymphocytes/100 WBC (Bld) 23.9 % Normal 14.0 - 50.0 % Remisol Heme MCH (RBC) [Entitic mass] 29.3 pg Normal 27.0 - 34.0 pg Remisol Heme MCHC (RBC) [Mass/Vol] 33.2 g/dL Normal 31.4 - 36.0 gm/dL Remisol Heme MCV (RBC) [Entitic vol] 88.2 fL Normal 80.0 - 100.0 fL Remisol Heme Monocytes (Bld) [#/Vol] 0.5 E9/L Normal 0.2 - 1.0 E9/L Remisol Heme Monocytes/100 WBC (Bld) 7.4 % Normal 4.0 - 14.0 % Remisol Heme Neutrophils (Bld) [#/Vol] 3.8 E9/L Normal 2.0 - 7.5 E9/L Remisol Heme Neutrophils/100 WBC (Bld) 60.1 % Normal 36.0 - 75.0 % Remisol Heme Platelet 365.0 E9/L Normal 150.0 - 500.0 E9/L Remisol Heme Platelet mean volume (Bld) [Entitic vol] 8.6 fL Normal 6.4 - 10.8 fL Remisol Heme RBC (Bld) [#/Vol] 4.4 E12/L Normal 4.3 - 5.9 E12/L Remisol Heme WBC corrected for nucl RBC Auto (Bld) [#/Vol] 6.4 E9/L Normal 4.0 - 11.0 E9/L Remisol Heme Cholesterol [Mass/volume] in Serum or PlasmaOrdered By: Tyler Roach on 08-29-2022 Cholesterol [Mass/Vol] 133 mg/dL 140-200 [facility] Comment on above: Chol less than 200 m g/dl low riskChol 201-239 mg/dl borderline riskChol 240 mg/dl and greater high risk Cholesterol in LDL Calc [Mas s/Vol]Ordered By: Tyler Roach on 08-29-2022 Cholesterol in LDL [Mass/Vol] 78 mg/dL 0-100 [facility] Comment on above: LDL ATP III CLASSIFI CATIONLDL less than 100 mg/dL OptimalLDL 100-129 mg/dL Near or above optimalLDL 130-159 mg/dL Borderline highLDL 160-189 mg/dL HighLDL greater than 189 mg/dL Very high Cholesterol in VLDL Calc [Ma ss/Vol]Ordered By: Tyler Roach on 08-29-2022 Cholesterol in VLDL [Mass/Vol] 12 mg/dL [facility] Serum or plasma high density lipoprotein (HDL) cholesterol measurementOrdered By: Tyler Roach on 08-29-2022 Cholesterol in HDL [Mass/Vol] 42 mg/dL 35-85 [facility] Comment on above: HDL CHOL ATP-III CLA SSIFICATION Cardiovascular RiskHDL > or equal to 60 mg/dL LOWHDL < 40 mg/dL HIGH Serum or plasma total choles terol/high density lipoprotein (HDL) cholesterol mass ratOrdered By: Tyler Roach on 08-29-2022 Cholesterol.total/Chol esterol in HDL [Mass ratio] 3.2 {ratio} <5.0 [facility] Thyrotropin [Units/volume] i n Serum or PlasmaOrdered By: Tyler Roach on 08-29-2022 TSH Qn 0.19 m[IU]/L 0.45-5.33 [facility] Thyroxine (T4) free [Mass/vo lume] in Serum or PlasmaOrdered By: Tyler Roach on 08-29-2022 Free T4 [Mass/Vol] 0.88 ng/dL 0.61-1.12 [facility] Triglyceride [Mass/volume] i n Serum or PlasmaOrdered By: Tyler Roach on 08-29-2022 Triglyceride [Mass/Vol] 63 mg/dL 0-149 [facility] Comment on above: TRIG ATP III CLASSIF ICATIONTRIG less than 150 mg/dL NormalTRIG 150-199 mg/dL Borderline highTRIG 200-500 mg/dL High TRIG greater than 500 mg/dL Very highStandard traceable to the Center for Disease Conrtrol and Prevention (CDC) test method. Vitamin D+Metabolites [Mass/ volume] in Serum or PlasmaOrdered By: Tyler Roach on 08-29-2022 Vitamin D+Metabolites [Mass/Vol] 16.0 ng/mL 30-100 [facility] Comment on above: VITAMIN D STATUS 25( [place])VITAMIN D RANGE (ng/mL) Deficient <20 Insufficient 20 to <30Sufficient 30 to 100Reference: John MF,Pasha NC, Benson LOYD, et al. Evaluation,treatment, and prevention of vitamin D deficiency; an Endocrine Society clinical practice guideline. JCEM. 2010; 96(7):1911-30. ACETAMINOPHENon 08-28-2022 Acetaminophen [Mass/Vol] ug/mL Critically low 10.0-30.0 [facility] Comment on above: Performed By: #### S ALYC, ACET #### [facility] [address] [place] [address] Dr. Deepak August AMYLASEon 08-28-2022 Amylase [Catalytic activity/Vol] 33 U/L Normal 25-[address] [facility] Comment on above: Performed By: #### B MP, LIVER, LIPA, SHERRI #### [facility] [address] [place] [address] Dr. Deepak August CBC AUTO DIFFon 08-28-2022 BASO # 0.1 103/ul Normal 0.0-0.[address] [facility] Comment on above: Performed By: #### B MP, LIVER, LIPA, SHERRI #### [facility] [address] [place] [address] Dr. Deepak August Basophils/100 WBC (Bld) 0.5 % Normal 0.2-2.0 [facility] Comment on above: Performed By: #### B MP, LIVER, LIPA, SHERRI #### [facility] [address] [place] [address] Dr. Deepak August EO # 0.1 103/ul Normal 0.0-0.[address] [facility] Comment on above: Performed By: #### B MP, LIVER, LIPA, SHERRI #### [facility] [address] [place] [address] Dr. Deepak August Eosinophils/100 WBC (Bld) 1.1 % Normal 0.9-7.0 [facility] Comment on above: Performed By: #### B MP, LIVER, LIPA, SHERRI #### [facility] [address] [place] [address] Dr. Deepak August Erythrocyte distribution width (RBC) [Ratio] 13.3 % Normal 11.0-15.[address] [facility] Comment on above: Performed By: #### B MP, LIVER, LIPA, SHERRI #### [facility] Laboratory [address] [address] [address] Deepak August Hematocrit (Bld) [Volume fraction] 43.5 % Normal 36.0-48.0 [facility] Comment on above: Performed By: #### B MP, LIVER, LIPA, SHERRI #### [facility] [address] [place] [address] Dr. Deepak August Hemoglobin (Bld) [Mass/Vol] 14.7 g/dL Normal 12.0-16.[address] [facility] Comment on above: Performed By: #### B MP, LIVER, LIPA, SHERRI #### [facility] [address] [place] [address] Dr. Deepak August IG # 0.04 10e3/ul Critically high 0.00-0.03 [facility] Comment on above: Performed By: #### B MP, LIVER, LIPA, SHERRI #### [facility] [address] [place] [address] Dr. Deepak August IG % 0.3 % Normal 0.0-0.5 [facility] Comment on above: Performed By: #### B MP, LIVER, LIPA, SHERRI #### [facility] [address] [place] [address] Dr. Deepak August LYMPH # 1.4 103/ul Normal 1.2-3.8 [facility] Comment on above: Performed By: #### B MP, LIVER, LIPA, SHERRI #### [facility] [address] [place] [address] Dr. Deepak August Lymphocytes/100 WBC (Bld) 11.2 % Critically low 20.5-60.[address] [facility] Comment on above: Performed By: #### B MP, LIVER, LIPA, SHERRI #### [facility] [address] [place] [address] Dr. Deepak August MANUAL DIFF REQ NO Normal [facility] Comment on above: Performed By: #### B MP, LIVER, LIPA, SHERRI #### [facility] [address] [place] [address] Dr. Deepak August MCH (RBC) [Entitic mass] 29.5 pg Normal 26.7-34.[address] [facility] Comment on above: Performed By: #### B MP, LIVER, LIPA, SHERRI #### [facility] [address] [place] [address] Dr. Deepak August MCHC (RBC) [Mass/Vol] 33.8 g/dL Normal 29.9-35.[address] [facility] Comment on above: Performed By: #### B MP, LIVER, LIPA, SHERRI #### [facility] [address] [place] [address] Dr. Deepak August MCV (RBC) [Entitic vol] 87.2 fL Normal 81.0-99.[address] [facility] Comment on above: Performed By: #### B MP, LIVER, LIPA, SHERRI #### [facility] [address] [place] [address] Dr. Deepak August MONO # 0.7 103/ul Normal 0.3-0.[address] [facility] Comment on above: Performed By: #### B MP, LIVER, LIPA, SHERRI #### [facility] [address] [place] [address] Dr. Deepak August Monocytes/100 WBC (Bld) 5.8 % Normal 1.7-12.0 [facility] Comment on above: Performed By: #### B MP, LIVER, LIPA, SHERRI #### [facility] [address] [place] [address] Dr. Deepak August NEUT # 10.0 103/ul Critically high 1.4-6.5 [facility] Comment on above: Performed By: #### B MP, LIVER, LIPA, SHERRI #### [facility] [address] [place] [address] Dr. Deepak August Neutrophils/100 WBC (Bld) 81.1 % Critically high 43.0-75.0 [facility] Comment on above: Performed By: #### B MP, LIVER, LIPA, SHERRI #### [facility] [address] [place] [address] Dr. Deepak August Platelet mean volume (Bld) [Entitic vol] 10.1 fL Normal 9.5-13.[address] [facility] Comment on above: Performed By: #### B MP, LIVER, LIPA, SHERRI #### [facility] [address] [address] [address] Deepak August PLT 390 103/ul Normal 150-[address] [facility] Comment on above: Performed By: #### B MP, LIVER, LIPA, SHERRI #### [facility] [address] [address] [address] Deepak August RBC 4.99 106/ul Normal 4.20-5.[address] [facility] Comment on above: Performed By: #### B MP, LIVER, LIPA, SHERRI #### [facility] [address] [address] [address] Deepak August WBC 12.4 103/ul Critically high 4.0-11.0 [facility] Comment on above: Performed By: #### B MP, LIVER, LIPA, SHERRI #### [facility] [address] [address] [address] Deepak August DRUG SCREEN RAPID (URINE)on 08-28-2022 AMP Negative Normal NEGATIVE [facility] Comment on above: Performed By: #### B MP, LIVER, LIPA, SHERRI #### [facility] [address] [address] [address] Deepak August BAR Negative Normal NEGATIVE [facility] Comment on above: Performed By: #### B MP, LIVER, LIPA, SHERRI #### [facility] [address] [address] [address] Deepak August BUP Negative Normal NEGATIVE [facility] Comment on above: Performed By: #### B MP, LIVER, LIPA, SHERRI #### [facility] [address] [address] [address] Deepak August BZO Negative Normal NEGATIVE [facility] Comment on above: Performed By: #### B MP, LIVER, LIPA, SHERRI #### [facility] [address] [address] [address] Deepak August VERA Negative Normal NEGATIVE [facility] Comment on above: Performed By: #### B MP, LIVER, LIPA, SHERRI #### [facility] [address] [place] [address] Dr. Deepak August CUT-OFFS SEE BELOW Normal [facility] Comment on above: Result Comment: AMP (Amphetamine): 500ng/mL, BAR (Barbituates): 200 ng/mL, BZO (Benzodiazepines): 150 ng/mL, BUP (Buprenorphine): 10 ng/mL, VERA (Cocaine): 150 ng/mL, mAMP (Methamphetamine): 500 ng/mL, MTD (Methadone): 200 ng/mL, OPI (Opiates): 100 ng/mL, OXY (Oxycodone): 100 ng/mL, PCP (Phencyclidine): 25 ng/mL, PPX (Propoxyphene): 300 ng/mL, THC (Cannabinoids): 50 ng/mL, TCA (Trycyclic Antidepressants): 300 ng/mL Performed By: #### B MP, LIVER, LIPA, SHERRI #### [facility] [address] [place] [address] Dr. Deepak August DRUG CUT HEADER DRUG CLASS TEST SYST EM CUT-OFF CONCENTRATIONS ARE FOLLOWS: Normal [facility] Comment on above: Performed By: #### B MP, LIVER, LIPA, SHERRI #### [facility] [address] [place] [address] Dr. Deepak August mAMP Negative Normal NEGATIVE [facility] Comment on above: Performed By: #### B MP, LIVER, LIPA, SHERRI #### [facility] [address] [place] [address] Dr. Deepak August MTD Negative Normal NEGATIVE [facility] Comment on above: Performed By: #### B MP, LIVER, LIPA, SHERRI #### [facility] [address] [place] [address] Dr. Deepak August OPI Negative Normal NEGATIVE [facility] Comment on above: Performed By: #### B MP, LIVER, LIPA, SHERRI #### [facility] [address] [place] [address] Dr. Deepak August OXY Negative Normal NEGATIVE [facility] Comment on above: Performed By: #### B MP, LIVER, LIPA, SHERRI #### [facility] [address] [address] [address] Deepak August PCP Negative Normal NEGATIVE [facility] Comment on above: Performed By: #### B MP, LIVER, LIPA, SHERRI #### [facility] [address] [address] [address] Deepak August PPX Negative Normal NEGATIVE [facility] Comment on above: Performed By: #### B MP, LIVER, LIPA, SHERRI #### [facility] [address] [place] [address] Dr. Deepak August TCA Positive Abnormal NEGATIVE [facility] Comment on above: Performed By: #### B MP, LIVER, LIPA, SHERRI #### [facility] [address] [place] [address] Dr. Deepak August THC Positive Abnormal NEGATIVE [facility] Comment on above: Performed By: #### B MP, LIVER, LIPA, SHERRI #### [facility] [address] [place] [address] Dr. Deepak August ER URINE PROFILEon 3 Bilirubin Ql (U) Negative Normal NEGATIVE [facility] Comment on above: Performed By: #### B MP, LIVER, LIPA, SHERRI #### [facility] [address] [place] [address] Dr. Deepak August Clarity (U) CLEAR Normal CLEAR [facility] Comment on above: Performed By: #### B MP, LIVER, LIPA, SHERRI #### [facility] [address] [place] [address] Dr. Deepak August Color (U) YELLOW Normal YELLOW [facility] Comment on above: Performed By: #### B MP, LIVER, LIPA, SHERRI #### [facility] [address] [place] [address] Dr. Deepak OROSCO A micrscopic examination will be performed if indicated. Normal [facility] Comment on above: Performed By: #### B MP, LIVER, LIPA, SHERRI #### [facility] [address] [address] [address] Deepak August Glucose Ql (U) Negative Normal NEGATIVE [facility] Comment on above: Performed By: #### B MP, LIVER, LIPA, SHERRI #### [facility] [address] [address] [address] Deepak August Hemoglobin Ql (U) Negative Normal NEGATIVE [facility] Comment on above: Performed By: #### B MP, LIVER, LIPA, SHERRI #### [facility] [address] [address] [address] Deepak August Ketones Ql (U) 15 mg/dl Abnormal NEGATIVE [facility] Comment on above: Performed By: #### B MP, LIVER, LIPA, SHERRI #### [facility] [address] [place] [address] Dr. Deepak August LEUKOCYTES Negative Normal NEGATIVE [facility] Comment on above: Performed By: #### B MP, LIVER, LIPA, SHERRI #### [facility] [address] [place] [address] Dr. Deepak August Nitrite Ql (U) Negative Normal NEGATIVE [facility] Comment on above: Performed By: #### B MP, LIVER, LIPA, SHERRI #### [facility] [address] [place] [address] Dr. Deepak August pH (U) 6.0 [pH] Normal 5-9 [facility] Comment on above: Performed By: #### B MP, LIVER, LIPA, SHERRI #### [facility] [address] [place] [address] Dr. Deepak August SPEC GRAVITY 1.020 Normal 1.005-<=1.02 5 [facility] Comment on above: Performed By: #### B MP, LIVER, LIPA, SHERRI #### [facility] [address] [place] [address] Dr. Deepak August UA PROTEIN Negative Normal NEGATIVE/ TRACE [facility] Comment on above: Performed By: #### B MP, LIVER, LIPA, SHERRI #### [facility] [address] [place] [address] Dr. Deepak August UR MICRO IND NOT INDICATED Normal [facility] Comment on above: Performed By: #### B MP, LIVER, LIPA, SHERRI #### [facility] [address] [address] [address] Deepak August Urobilinogen Qn (U) 0.2 {Jerod'U}/dL Normal 0.2 - 1. 0 [facility] Comment on above: Performed By: #### B MP, LIVER, LIPA, SHERRI #### [facility] [address] [address] [address] Deepak August ETHANOL (BLD ALC)on 08-29-19 23 ALC NOTE NOTE: 80 mg/dl is th e legal limit for a blood alcohol level Normal [facility] Comment on above: Performed By: #### B MP, LIVER, LIPA, SHERRI #### [facility] [address] [place] [address] Dr. Deepak August Ethanol [Mass/Vol] mg/dL Normal The [facility] Comment on above: Performed By: #### B MP, LIVER, LIPA, SHERRI #### [facility] [address] [place] [address] Dr. Deepak August LACTATE/LACTIC ACIDon 2022 Lactate [Moles/Vol] 1.4 mmol/L Normal 0.4-2.0 [facility] Comment on above: Performed By: #### B MP, LIVER, LIPA, SHERRI #### [facility] [address] [place] [address] Dr. Deepak August LIPASEon 08-28-2022 Lipase [Catalytic activity/Vol] 47.0 U/L Critically low 73.0-393.0 [facility] Comment on above: Performed By: #### B MP, LIVER, LIPA, SHERRI #### [facility] [address] [place] [address] Dr. Deepak August LIVER PROFILEon 08-28-2022 Albumin [Mass/Vol] 4.2 g/dL Normal 3.4-5.0 [facility] Comment on above: Performed By: #### B MP, LIVER, LIPA, SHERRI #### [facility] [address] [place] [address] Dr. Deepak August Albumin/Globulin [Mass ratio] 1.2 {ratio} Normal [facility] Comment on above: Performed By: #### B MP, LIVER, LIPA, SHERRI #### [facility] [address] [place] [address] Dr. Deepak August ALP [Catalytic activity/Vol] 67 U/L Normal 46-116 [facility] Comment on above: Performed By: #### B MP, LIVER, LIPA, SHERRI #### [facility] [address] [place] [address] Dr. Deepak August ALT [Catalytic activity/Vol] 21 U/L Normal 14-59 [facility] Comment on above: Performed By: #### B MP, LIVER, LIPA, SHERRI #### [facility] [address] [place] [address] Dr. Deepak August AST [Catalytic activity/Vol] 12 U/L Critically low 15-37 [facility] Comment on above: Performed By: #### B MP, LIVER, LIPA, SHERRI #### [facility] [address] [place] [address] Dr. Deepak August BILI, CONJUGATED 0.3 mg/dL Critically high 0.0-0.2 [facility] Comment on above: Performed By: #### B MP, LIVER, LIPA, SHERRI #### [facility] [address] [place] [address] Dr. Deepak August Bilirubin [Mass/Vol] 1.4 mg/dL Critically high 0.2-1.0 [facility] Comment on above: Performed By: #### B MP, LIVER, LIPA, SHERRI #### [facility] [address] [place] [address] Dr. Deepak August Globulin (S) [Mass/Vol] 3.6 g/dL Normal [facility] Comment on above: Performed By: #### B MP, LIVER, LIPA, SHERRI #### [facility] [address] [place] [address] Dr. Deepak August Protein [Mass/Vol] 7.8 g/dL Normal 6.4-8.2 [facility] Comment on above: Performed By: #### B MP, LIVER, LIPA, SHERRI #### [facility] [address] [address] [address] Deepak August URon 08-28-2022 , QUAL Negative Normal NEGATIVE [facility] Comment on above: Performed By: #### B MP, LIVER, LIPA, SHERRI #### [facility] [address] [address] [address] Deepak August PROF CHEM 8 (BAS METB)on Anion gap [Moles/Vol] 13.5 mmol/L Normal [facility] Comment on above: Performed By: #### B MP, LIVER, LIPA, SHERRI #### [facility] [address] [place] [address] Dr. Deepak August Calcium [Mass/Vol] 9.0 mg/dL Normal 8.5-10.1 [facility] Comment on above: Performed By: #### B MP, LIVER, LIPA, SHERRI #### [facility] [address] [address] [address] Deepak August Chloride [Moles/Vol] 104 mmol/L Normal 98-[address] [facility] Comment on above: Performed By: #### B MP, LIVER, LIPA, SHERRI #### [facility] [address] [place] [address] Dr. Deepak August CO2 [Moles/Vol] 23.8 mmol/L Normal 21.0-32.0 [facility] Comment on above: Performed By: #### B MP, LIVER, LIPA, SHERRI #### [facility] [address] [address] [address] Deepak August Creatinine [Mass/Vol] 0.82 mg/dL Normal 0.55-1.[address] [facility] Comment on above: Performed By: #### B MP, LIVER, LIPA, SHERRI #### [facility] [address] [place] [address] Dr. Deepak August EGFR-AF POLISH >60 Normal >=60 [facility] Comment on above: Performed By: #### B MP, LIVER, LIPA, SHERRI #### [facility] [address] [address] [address] Deepak August EGFR-NON AF POLISH >60 Normal >=60 [facility] Comment on above: Performed By: #### B MP, LIVER, LIPA, SHERRI #### [facility] [address] [address] [address] Deepak August Glucose [Mass/Vol] 119 mg/dL Critically high 74-[address] [facility] Comment on above: Performed By: #### B MP, LIVER, LIPA, SHERRI #### [facility] [address] [place] [address] Dr. Deepak August Potassium [Moles/Vol] 3.3 mmol/L Critically low 3.5-5.1 [facility] Comment on above: Performed By: #### B MP, LIVER, LIPA, SHERRI #### [facility] [address] [place] [address] Dr. Deepak August Sodium [Moles/Vol] 138 mmol/L Normal 136-145 [facility] Comment on above: Performed By: #### B MP, LIVER, LIPA, SHERRI #### [facility] [address] [place] [address] Dr. Deepak August Urea nitrogen [Mass/Vol] 8.0 mg/dL Normal 7.0-18.0 [facility] Comment on above: Performed By: #### B MP, LIVER, LIPA, SHERRI #### [facility] [address] [place] [address] Dr. Deepak August Urea nitrogen/Creatinine [Mass ratio] 9.8 mg/mg Normal [facility] Comment on above: Performed By: #### B MP, LIVER, LIPA, SHERRI #### [facility] [address] [place] [address] Dr. Deepak August SALICYLATEon 08-28-2022 SALICYLATE <2.8 Normal <=19.9 [facility] Comment on above: Performed By: #### S ALYC, ACET #### [facility] [address] [place] [address] Dr. Deepak August XR CHEST 1 Von 08-28-2022 XR CHEST 1 V EXAMINATION: XR CHES T 1 V HISTORY: Intentional overdose COMPARISON: No relevant comparison available. FINDINGS: LUNGS: No significant pulmonary parenchymal abnormalities. VASCULATURE: No increased pulmonary vasculature. PLEURA: No pneumothorax, effusion, or pleural thickening. CARDIAC: No cardiomegaly or cardiac silhouette abnormality. MEDIASTINUM: No visible mass or adenopathy. BONES: No fracture or visible bone lesion. OTHER: Negative. IMPRESSION: 1. Underexpanded lungs with trace amount of bibasilar atelectasis. Electronically authenticated by: STELLA MCDOWELL Date: 2022-08-28 10:31 Normal [facility] FERRITINon 06-10-2022 Ferritin [Mass/Vol] 56.0 ng/mL Normal 6.2-137.0 [facility] Comment on above: Performed By: #### B MP, LIVER, LIPA, SHERRI #### [facility] [address] [place] [address] Dr. Deepak August MAGNESIUMon 06-10-2022 Magnesium [Mass/Vol] 2.2 mg/dL Normal 1.8-2.4 [facility] Comment on above: Performed By: #### Agatha MG, PHOS #### [facility] [address] [place] [address] Dr. Deepak August PHOSPHORUSon 06-10-2022 Phosphate [Mass/Vol] 3.6 mg/dL Normal 2.6-4.7 [facility] Comment on above: Performed By: #### Agatha MG, PHOS #### [facility] [address] [place] [address] Dr. Deepak August POTASSIUMon 06-10-2022 Potassium [Moles/Vol] 3.8 mmol/L Normal 3.5-5.[address] [facility] Comment on above: Performed By: #### Agatha MG, PHOS #### [facility] [address] [place] [address] Dr. Deepak August VIT B12 AND FOLATEon 023 Cobalamin (Vitamin B12) [Mass/Vol] 278.0 pg/mL Normal 193.0-986.0 [facility] Comment on above: Performed By: #### B MP, LIVER, LIPA, SHERRI #### [facility] [address] [address] [address] Deepak August FOLATE 7.40 ng/mL Critically low 8.60-58.90 [facility] Comment on above: Performed By: #### B MP, LIVER, LIPA, SHERRI #### [facility] [address] [place] [address] Dr. Deepak August INSULINon 02-13-2022 Insulin 16.9 uIU/mL Normal 2.6-24.[address] [facility] Comment on above: Performed By: #### B MP, LIVER, LIPA, SHERRI #### [facility] [address] [place] [address] Dr. Deepak August CBC AUTO DIFFon 02-11-2022 BASO # 0.1 103/ul Normal 0.0-0.1 [facility] Comment on above: Performed By: #### B MP, LIVER, LIPA, SHERRI #### [facility] [address] [place] [address] Dr. Deepak August Basophils/100 WBC (Bld) 1.0 % Normal 0.2-2.0 [facility] Comment on above: Performed By: #### B MP, LIVER, LIPA, SHERRI #### [facility] [address] [place] [address] Dr. Deepak August EO # 0.4 103/ul Normal 0.0-0.[address] [facility] Comment on above: Performed By: #### B MP, LIVER, LIPA, SHERRI #### [facility] [address] [place] [address] Dr. Deepak August Eosinophils/100 WBC (Bld) 5.4 % Normal 0.9-7.[address] [facility] Comment on above: Performed By: #### B MP, LIVER, LIPA, SHERRI #### [facility] [address] [place] [address] Dr. Deepak August Erythrocyte distribution width (RBC) [Ratio] 13.0 % Normal 11.0-15.0 [facility] Comment on above: Performed By: #### B MP, LIVER, LIPA, SHERRI #### [facility] [address] [place] [address] Dr. Deepak August Hematocrit (Bld) [Volume fraction] 40.7 % Normal 36.0-48.0 [facility] Comment on above: Performed By: #### B MP, LIVER, LIPA, SHERRI #### [facility] [address] [place] [address] Dr. Deepak August Hemoglobin (Bld) [Mass/Vol] 13.4 g/dL Normal 12.0-16.0 [facility] Comment on above: Performed By: #### B MP, LIVER, LIPA, SHERRI #### [facility] [address] [place] [address] Dr. Deepak August IG # 0.02 10e3/ul Normal 0.00-0.03 [facility] Comment on above: Performed By: #### B MP, LIVER, LIPA, SHERRI #### [facility] [address] [place] [address] Dr. Deepak August IG % 0.3 % Normal 0.0-0.5 [facility] Comment on above: Performed By: #### B MP, LIVER, LIPA, SHERRI #### [facility] [address] [place] [address] Dr. Deepak August LYMPH # 1.6 103/ul Normal 1.2-3.8 [facility] Comment on above: Performed By: #### B MP, LIVER, LIPA, SHERRI #### [facility] [address] [place] [address] Dr. Deepak August Lymphocytes/100 WBC (Bld) 23.1 % Normal 20.5-60.0 [facility] Comment on above: Performed By: #### B MP, LIVER, LIPA, SHERRI #### [facility] [address] [place] [address] Dr. Deepak August MANUAL DIFF REQ NO Normal [facility] Comment on above: Performed By: #### B MP, LIVER, LIPA, SHERRI #### [facility] [address] [place] [address] Dr. Deepak August MCH (RBC) [Entitic mass] 28.6 pg Normal 26.7-34.0 [facility] Comment on above: Performed By: #### B MP, LIVER, LIPA, SHERRI #### [facility] [address] [place] [address] Dr. Depeak August MCHC (RBC) [Mass/Vol] 32.9 g/dL Normal 29.9-35.[address] [facility] Comment on above: Performed By: #### B MP, LIVER, LIPA, SHERRI #### [facility] [address] [place] [address] Dr. Deepak August MCV (RBC) [Entitic vol] 86.8 fL Normal 81.0-99.0 [facility] Comment on above: Performed By: #### B MP, LIVER, LIPA, SHERRI #### [facility] [address] [place] [address] Dr. Deepak August MONO # 0.5 103/ul Normal 0.3-0.[address] [facility] Comment on above: Performed By: #### B MP, LIVER, LIPA, SEHRRI #### [facility] [address] [place] [address] Dr. Deepak August Monocytes/100 WBC (Bld) 6.9 % Normal 1.7-12.0 [facility] Comment on above: Performed By: #### B MP, LIVER, LIPA, SHERRI #### [facility] [address] [place] [address] Dr. Deepak August NEUT # 4.3 103/ul Normal 1.4-6.[address] [facility] Comment on above: Performed By: #### B MP, LIVER, LIPA, SHERRI #### [facility] [address] [place] [address] Dr. Deepak Auugst Neutrophils/100 WBC (Bld) 63.3 % Normal 43.0-75.0 [facility] Comment on above: Performed By: #### B MP, LIVER, LIPA, SHERRI #### [facility] [address] [place] [address] Dr. Deepak August Platelet mean volume (Bld) [Entitic vol] 9.7 fL Normal 9.5-13.5 [facility] Comment on above: Performed By: #### B MP, LIVER, LIPA, SHERRI #### [facility] [address] [address] [address] Deepak August PLT 463 103/ul Critically high 150-450 [facility] Comment on above: Performed By: #### B MP, LIVER, LIPA, SHERRI #### [facility] [address] [address] [address] Deepak August RBC 4.69 106/ul Normal 4.20-5.40 [facility] Comment on above: Performed By: #### B MP, LIVER, LIPA, SHERRI #### [facility] [address] [place] [address] Dr. Deepak August WBC 6.8 103/ul Normal 4.0-11.0 [facility] Comment on above: Performed By: #### B MP, LIVER, LIPA, SHERRI #### [facility] [address] [place] [address] Dr. Deepak August FREE THYROXINE INDEX T7on FTI 2.33 Normal 1.30-4.50 [facility] Comment on above: Performed By: #### B MP, LIVER, LIPA, SHERRI #### [facility] [address] [place] [address] Dr. Deepak August T3U 31.0 % Normal 30.0-39.0 [facility] Comment on above: Performed By: #### B MP, LIVER, LIPA, SHERRI #### [facility] [address] [place] [address] Dr. Deepak August T4 [Mass/Vol] 7.50 ug/dL Normal 4.80-13.90 [facility] Comment on above: Performed By: #### B MP, LIVER, LIPA, SHERRI #### [facility] [address] [place] [address] Dr. Deepak August GLYCOHEMOGLOBIN A1Con 2021 ADA RECOMMENDATION SEE BELOW Normal [facility] Comment on above: Result Comment: ADA RECOMMENDED LIMIT 4.0 - 6.0 ADA THERAPEUTIC TARGET < 7.0 ACTION SUGGESTED > 7.0 Performed By: #### A 1C #### [facility] [address] [place] [address] Dr. Deepak August Glucose [Mass/Vol] 114 mg/dL Normal [facility] Comment on above: Performed By: #### A 1C #### [facility] [address] [address] [address] Deepak August HbA1c (Bld) [Mass fraction] 5.6 % Normal 4.5-6.2 [facility] Comment on above: Performed By: #### A 1C #### [facility] [address] [place] [address] Dr. Deepak August IRONon 02-11-2022 Iron [Mass/Vol] 97.0 ug/dL Normal 50.0-170.0 [facility] Comment on above: Performed By: #### B MP, LIVER, LIPA, SHERRI #### [facility] [address] [place] [address] Dr. Deepak August LIPID PROFILEon 02-11-2022 CHOL-HDL RATIO NORM SEE BELOW Normal [facility] Comment on above: Result Comment: 3.3 - 4.4 LOW RISK 4.4 - 7.1 AVERAGE RISK 7.1 - 11.0 MODERATE RISK >11.0 HIGH RISK Performed By: #### B MP, LIVER, LIPA, SHERRI #### [facility] [address] [place] [address] Dr. Deepak August Cholesterol [Mass/Vol] 172 mg/dL Normal <=200 [facility] Comment on above: Performed By: #### B MP, LIVER, LIPA, SHERRI #### [facility] [address] [place] [address] Dr. Deepak August Cholesterol in HDL [Mass/Vol] 64 mg/dL Critically high 40-60 [facility] Comment on above: Performed By: #### B MP, LIVER, LIPA, SHERRI #### [facility] [address] [place] [address] Dr. Deepak August Cholesterol in LDL [Mass/Vol] 98.0 mg/dL Normal [facility] Comment on above: Performed By: #### B MP, LIVER, LIPA, SHERRI #### [facility] [address] [place] [address] Dr. Deepak August Cholesterol.total/Chol esterol in HDL [Mass ratio] 2.7 {ratio} Normal [facility] Comment on above: Performed By: #### B MP, LIVER, LIPA, SHERRI #### [facility] [address] [address] [address] Deepak August HDL NORMAL > or = 60 mg/dl - LO W CARDIOVASCULAR RISK <40 mg/dl - HIGH CARDIOVASCULAR RISK Normal [facility] Comment on above: Performed By: #### B MP, LIVER, LIPA, SHERRI #### [facility] [address] [place] [address] Dr. Deepak August LDL CALC NORMAL SEE BELOW Normal [facility] Comment on above: Result Comment: <100 mg/dl OPTIMAL 100 - 129 mg/dl NEAR OR ABOVE OPTIMAL 130 - 159 mg/dl BORDERLINE HIGH 160 - 189 mg/dl HIGH >190 mg/dl VERY HIGH Performed By: #### B MP, LIVER, LIPA, SHERRI #### [facility] [address] [place] [address] Dr. Deepak August Triglyceride [Mass/Vol] 50 mg/dL Normal <=150 [facility] Comment on above: Performed By: #### B MP, LIVER, LIPA, SHERRI #### [facility] [address] [place] [address] Dr. Deepak August VLDL CALC 10.0 mg/dL Normal [facility] Comment on above: Performed By: #### B MP, LIVER, LIPA, SHERRI #### [facility] [address] [address] [address] Deepak August PROF 14(COMP METB)on 022 Albumin [Mass/Vol] 3.9 g/dL Normal 3.4-5.0 [facility] Comment on above: Performed By: #### B MP, LIVER, LIPA, SHERRI #### [facility] [address] [place] [address] Dr. Deepka August Albumin/Globulin [Mass ratio] 1.3 {ratio} Normal [facility] Comment on above: Performed By: #### B MP, LIVER, LIPA, SHERRI #### [facility] [address] [place] [address] Dr. Deepak August ALP [Catalytic activity/Vol] 67 U/L Normal 46-116 [facility] Comment on above: Performed By: #### B MP, LIVER, LIPA, SHERRI #### [facility] [address] [place] [address] Dr. Deepak August ALT [Catalytic activity/Vol] 39 U/L Normal 14-59 [facility] Comment on above: Performed By: #### B MP, LIVER, LIPA, SHERRI #### [facility] [address] [place] [address] Dr. Deepak August Anion gap [Moles/Vol] 9.4 mmol/L Normal [facility] Comment on above: Performed By: #### B MP, LIVER, LIPA, SHERRI #### [facility] [address] [place] [address] Dr. Deepak August AST [Catalytic activity/Vol] 16 U/L Normal 15-37 [facility] Comment on above: Performed By: #### B MP, LIVER, LIPA, SHERRI #### [facility] [address] [place] [address] Dr. Deepak August Bilirubin [Mass/Vol] 0.6 mg/dL Normal 0.2-1.0 [facility] Comment on above: Performed By: #### B MP, LIVER, LIPA, SHERRI #### [facility] [address] [place] [address] Dr. Deepak August Calcium [Mass/Vol] 8.6 mg/dL Normal 8.5-10.1 [facility] Comment on above: Performed By: #### B MP, LIVER, LIPA, SHERRI #### [facility] [address] [place] [address] Dr. Deepak August Chloride [Moles/Vol] 105 mmol/L Normal 98-107 [facility] Comment on above: Performed By: #### B MP, LIVER, LIPA, SHERRI #### [facility] [address] [place] [address] Dr. Deepak August CO2 [Moles/Vol] 27.7 mmol/L Normal 21.0-32.0 [facility] Comment on above: Performed By: #### B MP, LIVER, LIPA, SHERRI #### [facility] [address] [place] [address] Dr. Deepak August Creatinine [Mass/Vol] 0.68 mg/dL Normal 0.55-1.02 [facility] Comment on above: Performed By: #### B MP, LIVER, LIPA, SHERRI #### [facility] [address] [place] [address] Dr. Deepak August EGFR-AF POLISH >60 Normal >=60 [facility] Comment on above: Performed By: #### B MP, LIVER, LIPA, SHERRI #### [facility] [address] [place] [address] Dr. Deepak August EGFR-NON AF POLISH >60 Normal >=60 [facility] Comment on above: Performed By: #### B MP, LIVER, LIPA, SHERRI #### [facility] [address] [place] [address] Dr. Deepak August Globulin (S) [Mass/Vol] 3.1 g/dL Normal [facility] Comment on above: Performed By: #### B MP, LIVER, LIPA, SHERRI #### [facility] [address] [place] [address] Dr. Deepak August Glucose [Mass/Vol] 115 mg/dL Critically high 74-[address] [facility] Comment on above: Performed By: #### B MP, LIVER, LIPA, SHERRI #### [facility] [address] [place] [address] Dr. Deepak August Potassium [Moles/Vol] 4.1 mmol/L Normal 3.5-5.1 [facility] Comment on above: Performed By: #### B MP, LIVER, LIPA, SHERRI #### [facility] [address] [place] [address] Dr. Deepak August Protein [Mass/Vol] 7.0 g/dL Normal 6.4-8.2 [facility] Comment on above: Performed By: #### B MP, LIVER, LIPA, SHERRI #### [facility] [address] [address] [address] Deepak August Sodium [Moles/Vol] 138 mmol/L Normal 136-145 [facility] Comment on above: Performed By: #### B MP, LIVER, LIPA, SHERRI #### [facility] [address] [address] [address] Deepak August Urea nitrogen [Mass/Vol] 6.0 mg/dL Critically low 7.0-18.0 [facility] Comment on above: Performed By: #### B MP, LIVER, LIPA, SHERRI #### [facility] [address] [address] [address] Deepak August Urea nitrogen/Creatinine [Mass ratio] 8.8 mg/mg Normal [facility] Comment on above: Performed By: #### B MP, LIVER, LIPA, SHERRI #### [facility] [address] [address] [address] Deepak August TSHon 02-11-2022 TSH 0.860 uIU/mL Normal 0.358-3.740 [facility] Comment on above: Performed By: #### B MP, LIVER, LIPA, SHERRI #### [facility] [address] [address] [address] Deepak August MG MAMM SCREEN 3D FAISAL CADon 02-01-2022 MG MAMM SCREEN 3D FAISAL CAD Patient: RAMY MARTINEZ Exam Date: 02/01/2022 : 1980 Gender:F Ordering : DR RENA SMITH . Admission #: [id number] Family : Order #: [id number] CLICK HERE TO VIEW EXAM RADIOLOGY REPORT PROCEDURE: MAMMOGRAM SCREENING 3D BILATERAL CAD COMPARISON: None. INDICATIONS: Screening mammography Calculator Name NCI Breast Cancer Risk Assessment Tool 5 Year Breast Cancer Risk 0.40% Lifetime Breast Cancer Risk 7.30% Personal Breast Cancer No Personal Ovarian Cancer No Treatments None Family Cancers Mother with lung/brain cancer at age 57; Grandmother-maternal with uterine cancer at age 40. LOCATION: [facility] BREAST COMPOSITION: Heterogeneously dense,which may obscure small masses. FINDINGS: DIAGNOSTIC CATEGORY 2--BENIGN FINDING: Scattered benign-appearing nodules are present. Scattered benign-appearing calcifications are present. Scattered benign-appearing lymph nodes are present. RIGHT BREAST: No significant suspicious finding. LEFT BREAST: No significant suspicious finding. RECOMMENDATIONS: ROUTINE MAMMOGRAM AND CLINICAL EVALUATION IN 12 MONTHS. PLEASE NOTE: A NORMAL MAMMOGRAM DOES NOT EXCLUDE THE POSSIBILITY OF BREAST CANCER. A CLINICALLY SUSPICIOUS PALPABLE LUMP SHOULD BE BIOPSIED. Dictated by: Krystal Vasquez MD on 02/01/2022 at 08:51 Approved by: Krystal Vasquez MD on 02/01/2022 at 08:53 Normal [facility] PAP ACOG PANEL 2: 30 to 65on 01-31-2022 . . Normal [facility] Comment on above: Result Comment: Perf ormed at: WB Performed By: #### B MP, LIVER, LIPA, SHERRI #### [facility] [address] [address] [address] Deepak August Age Gdln ACOG Testing 30-65 Normal [facility] Comment on above: Performed By: #### B MP, LIVER, LIPA, SHERRI #### [facility] [address] [address] [address] Deepak August DIAGNOSIS: Comment Normal [facility] Comment on above: Result Comment: NEGA TIVE FOR INTRAEPITHELIAL LESION OR MALIGNANCY. FUNGAL ORGANISMS MORPHOLOGICALLY CONSISTENT WITH JAY SPECIES ARE PRESENT. CELLULAR CHANGES ASSOCIATED WITH INFLAMMATION ARE PRESENT. Performed at: WB Performed By: #### B MP, LIVER, LIPA, SHERRI #### [facility] [address] [address] [address] Deepak August HPV Aptima Negative Normal Negative [facility] Comment on above: Result Comment: This nucleic acid amplification test detects fourteen high-risk HPV types (16,18,31,33,35,39,45,51,52,56,58,59,66,68) without differentiation. Performed at: =G Performed By: #### B MP, LIVER, LIPA, SHERRI #### [facility] [address] [address] [address] Deepak August Methodology: Comment Normal [facility] Comment on above: Result Comment: This liquid based ThinPrep(R) pap test was screened with the use of an image guided system. Performed at: WB Performed By: #### B MP, LIVER, LIPA, SHERRI #### [facility] [address] [place] [address] Dr. Deepak August Note: Comment Normal [facility] Comment on above: Result Comment: The Pap smear is a screening test designed to aid in the detection of premalignant and malignant conditions of the uterine cervix. It is not a diagnostic procedure and should not be used as the sole means of detecting cervical cancer. Both false-positive and false-negative reports do occur. . Performed at: WB Performed By: #### B MP, LIVER, LIPA, SHERRI #### [facility] [address] [place] [address] Dr. Deepak August Performed by: Comment Normal [facility] Comment on above: Result Comment: Ness Ortiz, Field Agronomist (ASCP) Performed at: WB Performed By: #### B MP, LIVER, LIPA, SHERRI #### [facility] [address] [address] [address] Deepak August Specimen adequacy: Comment Normal [facility] Comment on above: Result Comment: Sati sfactory for evaluation. No endocervical component is identified. Performed at: WB Performed By: #### B MP, LIVER, LIPA, SHERRI #### [facility] [address] [address] [address] Deepak August PROF CHEM 8 (BAS METB)on Anion gap [Moles/Vol] 12.9 mmol/L Normal [facility] Comment on above: Performed By: #### B MP, LIVER, LIPA, SHERRI #### [facility] [address] [place] [address] Dr. Deepak August Calcium [Mass/Vol] 8.7 mg/dL Normal 8.5-10.1 [facility] Comment on above: Performed By: #### B MP, LIVER, LIPA, SHERRI #### [facility] [address] [address] [address] Deepak August Chloride [Moles/Vol] 105 mmol/L Normal 98-107 [facility] Comment on above: Performed By: #### B MP, LIVER, LIPA, SHERRI #### [facility] [address] [address] [address] Deepak August CO2 [Moles/Vol] 25.3 mmol/L Normal 21.0-32.0 [facility] Comment on above: Performed By: #### B MP, LIVER, LIPA, SHERRI #### [facility] [address] [address] [address] Deepak August Creatinine [Mass/Vol] 0.69 mg/dL Normal 0.55-1.02 [facility] Comment on above: Performed By: #### B MP, LIVER, LIPA, SHERRI #### [facility] [address] [place] [address] Dr. Deepak August EGFR-AF POLISH >60 Normal >=60 [facility] Comment on above: Performed By: #### B MP, LIVER, LIPA, SHERRI #### [facility] [address] [place] [address] Dr. Deepak August EGFR-NON AF POLISH >60 Normal >=60 [facility] Comment on above: Performed By: #### B MP, LIVER, LIPA, SHERRI #### [facility] [address] [address] [address] Deepak August Glucose [Mass/Vol] 114 mg/dL Critically high 74-106 [facility] Comment on above: Performed By: #### B MP, LIVER, LIPA, SHERRI #### [facility] [address] [address] [address] Deepak August Potassium [Moles/Vol] 4.2 mmol/L Normal 3.5-5.1 [facility] Comment on above: Performed By: #### B MP, LIVER, LIPA, SHERRI #### [facility] [address] [address] [address] Deepak August Sodium [Moles/Vol] 139 mmol/L Normal 136-145 [facility] Comment on above: Performed By: #### B MP, LIVER, LIPA, SHERRI #### [facility] [address] [address] [address] Deepak August Urea nitrogen [Mass/Vol] 6.0 mg/dL Critically low 7.0-18.0 [facility] Comment on above: Performed By: #### B MP, LIVER, LIPA, SHERRI #### [facility] [address] [address] [address] Deepak August Urea nitrogen/Creatinine [Mass ratio] 8.7 mg/mg Normal [facility] Comment on above: Performed By: #### B MP, LIVER, LIPA, SHERRI #### [facility] [address] [address] [address] Deepak August *HCG*POCT*DEVICEon 8 HCG.beta subunit ( test) Ql (U) Negative Normal Negative [facility] *POC GLUCOSE BATTERYon 09-03 *POC SAMPLE TYPE Capillary Blood Normal [facility] Glucose mass conc 106 mg/dL High 70-99 [facility] Comment on above: Result Comment: No B RAVE per RN: PATIENT TYPE Surgical Pathologyon 018 Surgical Pathology Surgical Pathology ReportPatient Name: RAMY MARTINEZ Rec #: [id number] Physician: LUIS GARCÍA--- Clinical History ---Preop Diagnosis: Ulcerative colitis with other complication. MedicalHistory: Depression. Anemia. Arthritis. Migraine. Diabetes mellitus. UC. Asthma.---Final Pathologic Diagnosis--- A. Colon, ascending, biopsy: - No diagnostic abnormality B. Colon, transverse, biopsy: - No diagnostic abnormality C. Colon, descending, biopsy: - No diagnostic abnormality D. Colon, sigmoid, biopsy: - No diagnostic abnormality E. Rectum, biopsy: - Rectal mucosa with submucosal/intramucosa l lipoma (see Note) Note:(E) There is a small focus of benign adipocytes in the rectal biopsy. Thespecific location of the adipocytes cannot be determined due to embeddingartifacts. Although submucosal location is favored, an intramucosal lipomacannot be excluded. Please correlate with clinical and endoscopic findings.Select slides reviewed by Dr. Francisca Chadwick. The patient's history of ulcerative colitis is noted. All biopsies arenegative for dysplasia, viral cytopathic effect, or well-formed granuloma. All controls show appropriate reactivity.All immunohistochemistry, in situ hybridization, and histochemical testswere developed by and are performed at the [facility], [address] [place] [address]. All tests reported here, except those addressing HER2 overexpressionas a predictive marker, have not been cleared by or approved by the [place] Foodand Drug Administration (FDA). The laboratory is regulated under CLIA asqualified to perform high-complexity testing. The tests are used forclinical purposes. They should not be regarded as investigational or forresearch. [id number]:09/05/2017 *Electronically Signed ByJunior Hitchcock MD, PhD09/05/2017 17:39:19Professional Interpretation performed at location: [address] [place] [address]---SPECIMEN(S) RECEIVED:---SBXA: Colon, BXB: Colon, BXC: Colon, BXD: Colon, BXE: Rectum, BX---GROSS DESCRIPTION:---The specimens are received in five properly labeled containers with thepatient's name and accession number.A. The specimen is designated ascending colon history of UC andconsists of one soft nguyen portion of tissue which is 0.5 cm in greatestdimension. TE 1 B. The specimen is designated transverse colon history of UC andconsists of two fragments of nguyen-pink soft tissue, up to 0.3 cm in greatestdimension. TE 1 C. The specimen is designated descending colon history of UC andconsists of two fragments of nguyen-pink soft tissue, up to 0.3 cm in greatestdimension. TE 1 D. The specimen is designated sigmoid colon history of UC andconsists of one soft nguyen portion of tissue which is 0.4 cm in greatestdimension. TE 1 E. The specimen is designated rectum history of UC and consistsof one soft nguyen portion of tissue which is 0.4 cm in greatest dimension. TE 1 Lab Use Only: Job ID [id number] description by: Beata De Guzman [facility] Comment on above: Performed By: #### S URGP ####[facility] [place] [address], [address] [place] [address] C Reactive Proteinon 018 C reactive protein (CRP) 3.70 mg/L Normal <10.00 [facility] Comment on above: Performed By: #### C BCDFC, CMPN, CRP ####[facility] [place] [address], [address] [place] [address] CBC,PLATELET,DIFFERENTIAL - CCLon 06-11-2017 Abs Baso 0.10 K/uL High 0.01-0.08 [facility] Comment on above: Performed By: #### C BCDFC, CMPN, CRP ####[facility] [place] [address], [address] [place] [address] Abs Eos 1.05 K/uL High 0.04-0.36 [facility] Comment on above: Performed By: #### C BCDFC, CMPN, CRP ####[facility] [place], [place] [id number] [place] [address] Abs [place] 0.72 K/uL Normal 0.24-0.86 [facility] Comment on above: Performed By: #### C BCDFC, CMPN, CRP ####[facility] [place], [place] [id number] [place] [address] Basophils/100 WBC Auto (Bld) 1.0 % Normal [facility] Comment on above: Performed By: #### C BCDFC, CMPN, CRP ####[facility] [place], [place] [address] DIFFERENTIAL TYPE Electronic Differential Normal [facility] Comment on above: Performed By: #### C BCDFC, CMPN, CRP ####[facility] [place], [place] [address]ci[facility] [place] [address] Eosinophils/100 leukocytes 10.2 % Normal [facility] Comment on above: Performed By: #### C BCDFC, CMPN, CRP ####[facility] [place] [id number] [place], [place] [id number] [place] [address] Erythrocytes (RBC) 4.80 10*6/uL Normal 3.93-5.22 [facility] Comment on above: Performed By: #### C BCDFC, CMPN, CRP ####[facility] [place] [address], [place] [address] [place], [place] [id number] [address] [place] [phone] Erythrocytes (RBC) 13.1 % Normal 11.7-14.4 [facility] Comment on above: Performed By: #### C BCDFC, CMPN, CRP ####[facility] [place], [place] [id number] [place], [place] [id number] [address] [place] [address] Hematocrit (HCT) 41.8 % Normal 34.1-44.9 [facility] Comment on above: Performed By: #### C BCDFC, CMPN, CRP ####[facility] [place] [id number] [place], [place] [id number] [address] [place] [address] Hemoglobin mass conc (Bld) 28.5 pg Normal 25.6-32.2 [facility] Comment on above: Performed By: #### C BCDFC, CMPN, CRP ####[facility] [place] [id number] [place], [place] [id number] [address] [place] [address] Hemoglobin mass conc (Bld) 32.8 g/dL Normal 32.2-35.5 [facility] Comment on above: Performed By: #### C BCDFC, CMPN, CRP ####[facility] [place], [place] [id number] [place] [address] Hemoglobin mass conc (Bld) 13.7 g/dL Normal 11.2-15.7 [facility] Comment on above: Performed By: #### C BCDFC, CMPN, CRP ####[facility] [place], [place] [id number] [place] [address] IMMATURE GRANS % 0.3 % Normal [facility] Comment on above: Performed By: #### C BCDFC, CMPN, CRP ####[facility] [place], [place] [id number] [place] [address] IMMATURE GRANS ABSOLUTE 0.03 K/uL Normal 0.00-0.03 [facility] [place] [facility] Comment on above: Performed By: #### C BCDFC, CMPN, CRP ####[facility] [place], [place] [id number] [address] [place] [address] 84813 Lymphocytes 2.73 10*3/uL Normal 1.18-3.74 [facility] Comment on above: Performed By: #### C BCDFC, CMPN, CRP ####[facility] [place], [place] [id number] [address] [place] [address] 02963 Lymphocytes/100 leukocytes 26.5 % Normal [facility] Comment on above: Performed By: #### C BCDFC, CMPN, CRP ####[facility] [place] [address] 88372MixzkbAvita [facility] [place] [address] 18592 MCV 87.1 fL Normal 79.4-94.8 [facility] Comment on above: Performed By: #### C BCDFC, CMPN, CRP ####[facility] [place] [address] 67956NtvmfiAvita Health System [facility] [place] [address] 19886 Monocytes/100 leukocytes 7.0 % Normal [facility] Comment on above: Performed By: #### C BCDFC, CMPN, CRP ####[facility] [place] [address] 76300OvwnsnAvita Health System [facility] [place] [address] 11597 NEUTROPHIL SEGMENTED 55.0 % Normal [facility] Comment on above: Performed By: #### C BCDFC, CMPN, CRP ####[facility] [place] [address] [place], [place] [id number] [address] [place] [address] 28380 Nucleated erythrocytes 0.0 /100 WBC Normal 0.0-0.2 [facility] Comment on above: Performed By: #### C BCDFC, CMPN, CRP ####[facility] [place] [address] 64695AqponaAvita [facility] System [facility] [place] [address] 07922 Platelet mean volume (PMV) 11.1 fL Normal 9.4-12.3 [facility] Comment on above: Performed By: #### C BCDFC, CMPN, CRP ####[facility] [place] [address] 53253RzmccwAvita [facility] [place] [address] 92276 Platelets 433 10*3/uL High 182-369 [facility] Comment on above: Performed By: #### C BCDFC, CMPN, CRP ####[facility] [place] [address], [place] [address]ShghhfAvita [facility] [place] [address] 38820 SEGS + Bands,Absolute 5.66 K/uL Normal 1.56-6.13 [facility] Comment on above: Performed By: #### C BCDFC, CMPN, CRP ####[facility] [facility] [address] [place], [place] [id number] [address] [place] [address] 37315 WBC (Leukocytes) 10.29 10*3/uL High 3.98-10.04 [facility] Comment on above: Performed By: #### C BCDFC, CMPN, CRP ####[facility] [place] [address] [place], [place] [id number] [address] [place] [address] 15986 Comprehensive Metabolic Pane [place] 06-11-2017 Alanine aminotransferase (ALT) 15 U/L Normal 9-48 [facility] Comment on above: Performed By: #### C BCDFC, CMPN, CRP ####[facility] [place] [address] [place], [place] [id number] [address] [place] [address] 10440 Albumin 4.6 g/dL Normal 3.5-5.0 [facility] Comment on above: Performed By: #### C BCDFC, CMPN, CRP ####[facility] [place] [address] 14125FboesgAvita Health System [facility] [place] [address] 59537 Alkaline phosphatase (ALP) 77 U/L Normal 32-126 [facility] Comment on above: Performed By: #### C BCDFC, CMPN, CRP ####[facility] [place] [address] 57746NezedtAvita Health System [facility] [place] [address] 25147 Anion gap 12 mmol/L Normal 7-17 [facility] Comment on above: Performed By: #### C BCDFC, CMPN, CRP ####[facility] [place], [place] [address]gq[address] [place], [place] [id number] [address] [place] [address] 68194 Aspartate aminotransferase (AST) 14 U/L Normal 14-40 [facility] Comment on above: Performed By: #### C BCDFC, CMPN, CRP ####[facility] [place] [address] [place], [place] [id number] [address] [place] [address] 95275 Bilirubin (total) 0.4 mg/dL Normal <1.5 [facility] Comment on above: Performed By: #### C BCDFC, CMPN, CRP ####[facility] [place] [address] [place], [place] [id number] [address] [place] [address] 33564 BUN/Creatinine Ratio 13 mg/mg Normal [facility] Comment on above: Performed By: #### C BCDFC, CMPN, CRP ####[facility] [place] [address] [place], [place] [id number] [address] [place] [address] 37941 Calcium 9.5 mg/dL Normal 8.6-10.5 [facility] Comment on above: Performed By: #### C BCDFC, CMPN, CRP ####[facility] [place] [address] [place], [place] [id number] [address] [place] [address] 93448 Chloride 104 mmol/L Normal 98-108 [facility] Comment on above: Performed By: #### C BCDFC, CMPN, CRP ####[facility] [place] [address] [place], [place] [id number] [address] [place] [address] 34030 CO2 27 mmol/L Normal 22-30 [facility] Comment on above: Performed By: #### C BCDFC, CMPN, CRP ####[facility] [place] [address] [place], [place] [id number] [address] [place] [address] 82971 Creatinine 0.68 mg/dL Normal 0.50-1.20 [facility] Comment on above: Performed By: #### C BCDFC, CMPN, CRP ####[facility] [place] [address] [place], [place] [id number] [address] [place] [address] 60439 eGFR (non-black) mL/min/{1.73_m2} Normal >60 [facility] Comment on above: Performed By: #### C BCDFC, CMPN, CRP ####[facility] [place], [place] [id number] [address] [place] [address] 72765 Glucose mass conc 90 mg/dL Normal 70-99 [facility] Comment on above: Performed By: #### C BCDFC, CMPN, CRP ####[facility] [place] [address] [place], [place] [id number] [address] [place] [address] 29261 Osmolality 288 mOsm/kg Normal 278-305 [facility] Comment on above: Performed By: #### C BCDFC, CMPN, CRP ####[facility] [place], [place] [id number] [address] [place] [address] 42331 Potassium molar conc 3.7 mmol/L Normal 3.5-5.0 [facility] Comment on above: Performed By: #### C BCDFC, CMPN, CRP ####[facility] [place], [place] [id number] [address] [place] [address] 84979 Protein 7.6 g/dL Normal 6.4-8.3 [facility] Comment on above: Performed By: #### C BCDFC, CMPN, CRP ####[facility] [facility] [address]GumfuwAvita Health System [facility] [place] [address] 40412 Sodium 139 mmol/L Normal 133-143 [facility] Comment on above: Performed By: #### C BCDFC, CMPN, CRP ####[facility] [place] [address] 86111OwexecAvita Health System [facility] [place] [address] 37344 Urea nitrogen 9 mg/dL Normal 7-22 [facility] Comment on above: Performed By: #### C BCDFC, CMPN, CRP ####[facility] [place] [address] 78087DqaqucAvita Health System [facility] [place] [address] 26222 Vital Signs Date Time Vital Sign Value Performing Clinician Facility 01-22-2024 15:40-0400 Body height 165.1 cm Denisse Chiang MD Work Phone: [facility] 01-22-2024 15:40-0400 Body mass index (BMI) [Ratio] 29.79 kg/m2 Denisse Chiang MD Work Phone: [facility] 01-22-2024 15:40-0400 Body weight 81.19 kg Denisse Chiang MD Work Phone: [facility] 01-22-2024 15:40-0400 Diastolic blood pressure 81 mm[Hg] Denisse Chiang MD Work Phone: [facility] 01-22-2024 15:40-0400 Heart rate 76 /min Denisse Chiang MD Work Phone: [facility] 01-22-2024 15:40-0400 Systolic blood pressure 117 mm[Hg] Denisse Chiang MD Work Phone: [facility] 01-03-2024 15:07-0400 Body mass index (BMI) [Ratio] 29.64 kg/m2 Sherri LARKIN Work Phone: [facility] 01-03-2024 15:07-0400 Body weight 80.8 kg Sherri LARKIN Work Phone: [facility] 01-03-2024 15:07-0400 Diastolic blood pressure 76 mm[Hg] Sherri LARKIN Work Phone: [facility] 01-03-2024 15:07-0400 Systolic blood pressure 110 mm[Hg] Sherri Reynolds PA Work Phone: [facility] 12-24-2023 20:30-0400 Diastolic blood pressure 63 mm[Hg] Denisse Chinag MD Work Phone: [facility] 12-24-2023 20:30-0400 Heart rate 84 /min Denisse Chiang MD Work Phone: [facility] 12-24-2023 20:30-0400 Respiratory rate 17 /min Denisse Chiang MD Work Phone: [facility] 12-24-2023 20:30-0400 SaO2% (BldA) [Mass fraction] 99 % Denisse Chiang MD Work Phone: [facility] 12-24-2023 20:30-0400 Systolic blood pressure 110 mm[Hg] Denisse Chiang MD Work Phone: [facility] 12-24-2023 20:00-0400 Body temperature 97.2 [degF] Denisse Chiang MD Work Phone: [facility] 12-24-2023 12:43-0400 Body height 165.1 cm Denisse Chiang MD Work Phone: [facility] 12-24-2023 12:43-0400 Body mass index (BMI) [Ratio] 28.96 kg/m2 Denisse Chiang MD Work Phone: [facility] 12-24-2023 12:43-0400 Body weight 78.93 kg Denisse Chiang MD Work Phone: [facility] 10-09-2023 13:06-0400 Body height 165.1 cm Denisse Chiang MD Work Phone: [facility] 10-09-2023 13:06-0400 Body mass index (BMI) [Ratio] 29.79 kg/m2 Denisse Chiang MD Work Phone: [facility] 10-09-2023 13:06-0400 Body weight 81.19 kg Denisse Chiang MD Work Phone: [facility] 10-09-2023 13:06-0400 Diastolic blood pressure 82 mm[Hg] Denisse Chiang MD Work Phone: [facility] 10-09-2023 13:06-0400 Heart rate 84 /min Denisse Chiang MD Work Phone: [facility] 10-09-2023 13:06-0400 Systolic blood pressure 126 mm[Hg] Denisse Chiang MD Work Phone: [facility] 09-25-2023 14:27-0400 Blood Pressure Location Torres Sarmini [facility] 09-25-2023 14:27-0400 Diastolic blood pressure 80 mm[Hg] Torres Sarmini [facility] 09-25-2023 14:27-0400 Heart rate 70 /min Torres Sarmini [facility] 09-25-2023 14:27-0400 Respiratory rate 18 /min Torres Sarmini [facility] 09-25-2023 14:27-0400 Systolic blood pressure 116 mm[Hg] Torres Sarmini [facility] 09-10-2023 14:15-0400 Diastolic blood pressure 88 mm[Hg] Torres Sarmini [facility] 09-10-2023 14:15-0400 Heart rate 78 /min Torres Sarmini [facility] 09-10-2023 14:15-0400 Respiratory rate 17 /min Torres Sarmini [facility] 09-10-2023 14:15-0400 SaO2% (BldA) [Mass fraction] 100 % Torres Sarmini [facility] 09-10-2023 14:15-0400 Systolic blood pressure 137 mm[Hg] Torres Sarmini [facility] 09-10-2023 14:05-0400 Diastolic blood pressure 89 mm[Hg] Torres Sarmini [facility] 09-10-2023 14:05-0400 Heart rate 72 /min Torres Sarmini [facility] 09-10-2023 14:05-0400 Respiratory rate 16 /min Torres Sarmini [facility] 09-10-2023 14:05-0400 SaO2% (BldA) [Mass fraction] 99 % Torres Sarmini [facility] 09-10-2023 14:05-0400 Systolic blood pressure 147 mm[Hg] Torres Sarmini [facility] 09-10-2023 14:00-0400 Heart rate 75 /min Torres Sarmini [facility] 09-10-2023 14:00-0400 Systolic blood pressure 142 mm[Hg] Torres Sarmini [facility] 09-10-2023 13:49-0400 Body temperature 97.7 [degF] Torres Sarmini [facility] 09-10-2023 13:45-0400 Respiratory rate 14 /min Torres Sarmini [facility] 09-10-2023 13:40-0400 Respiratory rate 14 /min Torres Sarmini [facility] 09-10-2023 13:35-0400 Respiratory rate 13 /min Torres Sarmini [facility] 09-10-2023 11:40-0400 Blood Pressure Location Torres Sarmini [facility] 09-10-2023 11:40-0400 Body temperature 97.52 [degF] Torres Sarmini [facility] 07-11-2023 07:38-0500 Blood Pressure Location Torres Sarmini [facility] 07-11-2023 07:38-0500 Diastolic blood pressure 88 mm[Hg] Torres Sarmini [facility] 07-11-2023 07:38-0500 Heart rate 80 /min Torres Sarmini [facility] 07-11-2023 07:38-0500 Respiratory rate 18 /min Torres Sarmini [facility] 07-11-2023 07:38-0500 Systolic blood pressure 128 mm[Hg] Torres Sarmini [facility] 08-31-2022 17:05-0400 Body temperature 98.4 [degF] MD Yaquelin Perez Work Phone: [facility] 08-31-2022 17:05-0400 Diastolic blood pressure 86 mm[Hg] MD Yaquelin Perez Work Phone: [facility] 08-31-2022 17:05-0400 Heart rate 72 /min MD Yaquelin Perez Work Phone: [facility] 08-31-2022 17:05-0400 Respiratory rate 18 /min MD Yaquelin Perez Work Phone: [facility] 08-31-2022 17:05-0400 SaO2% (BldA) [Mass fraction] 100 % MD Yaquelin Perez Work Phone: [facility] 08-31-2022 17:05-0400 Systolic blood pressure 129 mm[Hg] MD Yaquelin Perez Work Phone: [facility] 08-29-2022 14:54-0400 Body height 166.37 cm MD Yaquelin Perez Work Phone: [facility] 08-28-2022 17:33-0400 Body weight 96.61 kg MD Yaquelin Perez Work Phone: [facility] 08-30-2021 10:00-0400 Body height 165.1 cm Reddy Dewitt Other [facility] Other 08-30-2021 10:00-0400 Body mass index (BMI) [Ratio] 36.61 kg/m2 Reddy Dewitt Other [facility] Other 08-30-2021 10:00-0400 Body weight 99.79 kg Reddy Dewitt Other [facility] Other Encounters Encounter Date Encounter Type Care Provider Facility Start: 09-24-2024 ambulatory Torres Talal [facility] Facility:[facility] Start: 01-22-2024 End: 01-22-2024 Postop follow up visit related to original px Denisse Chiang MD Work Phone: [phone] [place] [address] Comment on above: Prolapsed internal h emorrhoids (Primary Dx) Start: 01-22-2024 End: 01-22-2024 ambulatory [facility] Start: 01-03-2024 End: 01-03-2024 Patient encounter procedure Sherri LARKIN Work Phone: [facility] Work Phone: Start: 01-03-2024 End: 01-03-2024 Periodic preventive med est patient 40-64yrs Sherri LARKIN Work Phone: [facility] Comment on above: Well woman exam with routine gynecological exam; Breast cancer screening by mammogram Start: 01-03-2024 End: 01-03-2024 Bamboo flowsheet Sherri LARKIN Work Phone: [facility] Start: 01-03-2024 End: 01-09-2024 Clinisync Result Encounter Sherri LARKIN Work Phone: [facility] Unsolicited Start: 01-03-2024 End: 01-09-2024 Clinisync Result Encounter Sherri LARKIN Work Phone: [facility] Unsolic[facility] Start: 12-24-2023 End: 12-24-[address] [facility] Start: 12-24-2023 End: 12-24-2023 Subsequent hospital visit by physician Denisse Chiang MD Work Phone: [facility] Comment on above: Prolapsed internal h emorrhoids Start: 12-13-2023 End: 12-13-2023 ambulatory [facility] Start: 12-13-2023 End: 12-13-2023 Encounter for other preprocedural examination [facility] Start: 11-28-2023 End: 11-28-2023 ambulatory [facility] Start: 11-28-2023 End: 11-28-2023 ambulatory [facility] Start: 11-28-2023 End: 11-28-2023 ambulatory [facility] Start: 10-24-2023 ambulatory Tyler Roach Naya acility:[facility] Start: 10-09-2023 End: 10-09-2023 Office outpatient new 30 minutes Denisse Chiang MD Work Phone: [facility] Comment on above: Rectal prolapse (Coni briseida Dx); Internal hemorrhoids Start: 10-09-2023 End: 10-09-2023 ambulatory DENISSE CHIANG [facility] Start: 09-25-2023 End: 09-25-2023 ambulatory Torres Talal Sarmini Facility:[facility] Start: 09-25-2023 End: 09-25-2023 Patient encounter procedure Torres Talal Sarmini [facility] Start: 09-10-2023 End: 09-10-2023 ambulatory Torres Talal Sarmini Facility:[facility] Start: 09-10-2023 End: 09-10-2023 Patient encounter procedure Torres Talal Sarmini [facility] Start: 07-11-2023 End: 07-11-2023 Patient encounter procedure Torres Talal Sarmini [facility] Start: 07-11-2023 End: 07-11-2023 Patient encounter procedure Torres Talal Sarmini [facility] Start: 08-28-2022 End: 08-31-2022 Evaluation and management of inpatient MD Yaquelin Perez Work Phone: [address] Work Phone: Start: 08-28-2022 End: 08-28-[address] YAQUELIN PEREZ . Facility: Start: 08-16-2022 [facility] Facility: 1 Start: 06-10-2022 End: 06-11-[address] NICOLLE BALL Facility:[facility] Start: 02-14-2022 Encounter for genera l adult medical examination without abnormal findings DR YAQUELIN PEREZ . [facility] Start: 02-13-2022 End: 02-14-[address] YAQUELIN PEREZ . Facility:[facility] Start: 02-11-2022 End: 02-12-[address] YAQUELIN PEREZ . Facility:[facility] Start: 02-11-2022 End: 02-12-2022 Encounter for general adult medical examination without abnormal findings DR YAQUELIN PEREZ . Facility:[facility] Start: 02-01-2022 End: 02-02-[address] RENA SMITH . Facility:[facility] Start: 01-24-2022 End: 01-24-[address] RENA SMITH . Facility:[facility] Start: 01-19-2022 End: 01-19-2022 Patient encounter procedure Chasity BOOKER [facility] Start: 10-12-2021 End: 10-13-2021 ambulatory CHASITY BOOKER Facility:[facility] Start: 08-30-2021 End: 08-30-2021 ambulatory Reddy Dewitt Other [facility] [employer] Other Start: 08-30-2021 Office outpatient vi sit 15 minutes Reddy Dewitt [facility] Start: 08-09-2021 End: 08-09-2021 Patient encounter procedure MD Yaquelin Perez Work Phone: [facility] Start: 09-03-2017 End: 09-03-2017 Ambulatory JUDITH LEÓN [facility] Start: 06-11-2017 Ambulatory JOSEFINA ABERRA [facility] Start: 06-11-2017 [facility] Procedures Date Procedure Procedure Detail Performing Clinician Start: 01-03-2024 IGP,APTIMA HPV,AGE GDLN Sherri LARKIN Work Phone: Start: 01-03-2024 Microscopic observat ion [Identifier] in Cervix by Cyto stain Denisse Chiang MD Work Phone: Start: 12-24-2023 End: 12-24-2023 Hemorrhoidectomy ntrnl & xtrnl 1 column/group Denisse Chiang MD Work Phone: Start: 12-24-2023 Urine test visual color cmprsn meths Denisse Chiang MD Work Phone: Start: 12-24-2023 Glucose quantitative blood xcpt reagent strip Denisse Chiang MD Work Phone: Start: 12-24-2023 PULSE OXIMETRY, SPOT Mi tyrese Chiang MD Work Phone: Start: 10-09-2023 Anoscopy dx w/collj spec br/wa spx when prfrmd Denisse Chiang MD Work Phone: Start: 09-10-2023 Colonoscopy Melissa hernández Start: 08-09-2021 X-ray of cervical spine MD Yaquelin Perez Work Phone: Start: 08-09-2021 X-ray of lumbar spin e, four views MD Yaquelin Perez Work Phone: Start: 09-07-2017 Laparoscopic cholecystectomy [facility] Bilateral tubal ligation [facility] Colonoscopy [facility] Endometrial ablation Gaspar S ALAM Hemorrhoids (disorder) [facility]par [facility] Histology tonsillectomy Mahe r SALAM History of hernia repair [facility] Plan of Treatment Date Care Activity Detail Author Start: 2030 Zoster Vaccines (1 o f 2) Zoster Vaccines (1 of 2) [facility] Start: 01-02-2027 Screening for malignant neoplasm of cervix [facility] Start: 12-23-2026 Diabetes mellitus screening Diabetes Screening [facility] Start: 01-12-2025 End: 01-12-2025 Patient encounter procedure 01/12/2025 3:00 PM EDT Office Visit [facility] [address] [place] [phone] Sherri Reynolds PA [address] [place] [address] [facility] Start: 01-06-2024 COVID-19 Vaccine () COVID-19 Vaccine () [facility] Start: 01-06-2024 Influenza vaccination [facility] Start: 01-03-2024 End: 01-03-2024 Patient encounter procedure 01/03/2024 3:00 PM EDT Office Visit [facility] [address] [place] [phone] hSerri Reynolds PA [address] [place], [place] [id number] Arrived [facility] Comment on above: Arrived Start: 01-03-2024 End: 03-04-2025 MG Breast - bilateral Screening Bilateral screening mammogram Imaging Routine Breast cancer screening by mammogram Expected: 01/03/2024 (Approximate), Expires: 03/04/2025 [facility] Work Phone: Comment on above: Expected: 01/03/2024 (Approximate), Expires: 03/04/2025 Start: 11-28-2023 End: 11-28-2023 Patient encounter procedure 11/28/2023 2:00 PM EDT Office Visit [facility] [address] [place] [phone] Joseph Soriano DO [address] [place] [address] [facility] Start: 01-05-2023 COVID-19 Vaccine () COVID-19 Vaccine () [facility] Start: 08-31-2022 [facility] Start: 08-28-2022 Hospital admission [facility] Start: 2020 Screening for malignant neoplasm of breast Mammogram [facility] Start: 10-18-2018 Varicella vaccination Varicell a Vaccines (1 of 2 - 13+ 2-dose series) [facility] Start: 2010 Screening for malignant neoplasm of cervix [facility] Start: 2002 DTaP/Tdap/Td Vaccine s (2 - Tdap) DTaP/Tdap/Td Vaccines (2 - Tdap) [facility] Start: 2001 Screening for malignant neoplasm of cervix [facility] Start: 1998 Diabetes mellitus screening Diabetes Screening [facility] Start: 1998 Hepatitis C screening Hepatitis C [facility] Start: 1986 Pneumococcal Vaccine : Pediatrics (0 to 5 Years) and At-Risk Patients (6 to 64 Years) (1 of 2 - PCV) Pneumococcal Vaccine: Pediatrics (0 to 5 Years) and At-Risk Patients (6 to 64 Years) (1 of 2 - PCV) [facility] Start: 1980 IPV Vaccines (2 of 3 - 4-dose series) IPV Vaccines (2 of 3 - 4-dose series) [facility] Start: 1980 HIV screening HIV Screening [facility] Start: 1980 Lipid panel Lipid Panel [facility] Start: 1980 Yearly Adult Physical Yearly Adult P hysical [facility] End: 12-24-2023 Continuous Pulse oximetry, In Phase 1 Continuous Pulse oximetry, In Phase 1 Respiratory Care Routine Continuous until discontinued starting 12/24/2023 [facility] Work Phone: Comment on above: Continuous until dis continued starting 12/24/2023 End: 12-24-2023 Incentive spirometry Instruct Incentive spirometry Instruct Respiratory Care Routine Once for 1 Occurrences starting 12/24/2023 until 12/24/2023 [facility] Service Area Work Phone: Comment on above: Once for 1 Occurrenc es starting 12/24/2023 until 12/24/2023 Patient Education Depression, Ad ult (DC) [facility] [place] Instructions [facility] Work Phone: Patient referral [facility] Work Phone: Surgical pathology study [facility] Service Area Work Phone: Comment on above: Release Upon Orderin g for 1 Occurrences starting 12/24/2023, 1 completed THIN PREP TIS PAP AN D HR HPV DNA THIN PREP TIS PAP AND HR HPV DNA Pathology and Cytology Routine Well woman exam with routine gynecological exam Ordered: 01/03/2024 [facility] Comment on above: Ordered: 01/03/2024 Immunizations Immunization Date Immunization Notes Care Provider Fa lynnette 06-02-2020 SARS-CoV-2 (COVID-19 ) mRNA-1273 vaccine Gaspar SALAM [facility] 05-05-2020 SARS-CoV-2 (COVID-19 ) mRNA-1273 vaccine Gaspar SALAM [facility] 03-25-2020 influenza virus vaccine, unspecified formulation Sherri LARKIN Work Phone: [facility] 09-20-2018 hepatitis A vaccine, adult dosage Gaspar SALAM [facility] 09-20-2018 measles, mumps and rubella virus vaccine Gaspar SALAM [facility] 04-16-2017 hepatitis B vaccine, adult dosage Gaspar SALAM [facility] 11-08-2016 hepatitis B vaccine, adult dosage Gaspar SALAM [facility] 10-04-2016 hepatitis B vaccine, adult dosage Gaspar SALAM [facility] 1980 poliovirus vaccine, unspecified formulation Denisse Chiang MD Work Phone: [facility] Work Phone: NEGATED: Highlighted row has not occurred!07-09-2023 influenza virus vaccine, unspecified formulation Melissa Guerreromini [facility] NEGATED: Highlighted row has not occurred!07-06-2022 influenza virus vaccine, unspecified formulation Melissa Guerreromini [facility] NEGATED: Highlighted row has not occurred!06-13-2021 influenza virus vaccine, unspecified formulation Gaspar SALAM [facility] Payers Date Payer Category Payer Unknown [id number] 2017 Unknown [id number] 2016 Unknown [id number] 1980 Unknown [id number] 2.16.84 0.1.922559.3.579.2.593 1980 Unknown [id number] 2.16.84 0.1.967616.3.579.2.593 1980 Unknown [id number] 2.16.84 0.1.666841.3.579.2.593 1980 Unknown [id number] 2.16.84 0.1.410280.3.579.2.593 1980 Unknown [id number] 2.16.84 0.1.920101.3.579.2.593 1980 Unknown [id number] 2.16.84 0.1.275188.3.579.2.593 1980 Unknown [id number] 2.16.84 0.1.036899.3.579.2.593 1980 Unknown [id number] 2.16.84 0.1.636415.3.579.2.593 1980 Unknown [id number] 2.16.8 40.1.279249.3.579.2.1245 1980 Unknown [id number] 2.16.8 40.1.750800.3.579.2.5 1980 Unknown [id number] 2.16.8 40.1.279229.3.579.2.1244 1980 Unknown [id number] 2.16.8 40.1.007312.3.579.2.1244 1980 Unknown [id number] 2.16.8 40.1.132236.3.579.2.1244 1980 Unknown [id number] 2.16.8 40.1.191941.3.579.2.1242 1980 Unknown [id number] 2.16.8 40.1.328638.3.579.2.1242 1980 Unknown [id number] 2.16.8 40.1.485594.3.579.2.1243 1980 Unknown [id number] 2.16.8 40.1.445685.3.579.2.1243 1980 Unknown [id number] 2.16.8 40.1.892774.3.579.2.1243 1980 Unknown [id number] 2.16.8 40.1.377892.3.579.2.7 1980 Unknown [id number] 2.16.8 40.1.802646.3.579.2.7 1980 Unknown [id number] 2.16.8 40.1.195339.3.579.2.727 1959 [facility] [place] [id number] [id number] 1959 Self-pay [id number] Unknown Self Pay [id number] Unknown [id number] 2.16.8 40.1.835047.3.579.2.531 Social History Date Type Detail Facility Start: 10-10-2019 End: 01-15-2023 Tobacco smoking status NHIS Never smoked tobacco (finding) [facility] Start: 1980 Sex Assigned At Female F [facility] Start: 01-15-2023 End: 12-24-2023 Sex Assigned At [facility] [employer] Other Tobacco smoking status Never [facility] Tobacco smoking status NHIS Tobacco smoking consumption unknown [facility] Work Phone: Start: 1980 Sex assigned at Not on file [facility] Work Phone: Start: 09-29-2023 End: 01-22-2024 Exposure to SARS-CoV-2 (event) Not sure [facility] Start: 11-28-2023 Tobacco use and exposure Smokeless tobacco non-user [facility] Work Phone: Start: 12-24-2023 End: 01-22-2024 Alcoholic beverage intake Current drinker of alcohol (finding) [facility] Work Phone: Start: 01-15-2023 End: 12-24-2023 Alcoholic beverage intake [facility] Work Phone: Start: 12-13-2023 Alcohol Comment rarely [facility] Work Phone: Start: 01-15-2023 End: 01-03-2024 Alcoholic beverage intake Lifetime non-drinker (finding) [facility] Start: 11-19-2023 Gender identity Identifies as female gender (finding) [facility] Medical Equipment Procedure Code Equipment Code Equipment Origin al Text Equipment Identifier Dates Cervical total d isc replacement prosthesis, sterile [id number] [facility] Start: 10-10-2019 Goals Date Patient Goal Desired Activity /State Functional Status Date Assessment Result Facility 09-25-2023 Functional Status N/A [facility] 09-10-2023 Functional Status N/A [facility] 07-11-2023 Functional Status N/A [facility] 08-31-2022 Functional status Patient at Baseline [facility] Work Phone: Mental Status Date Assessment Result Facility 08-31-2022 Cognitive function Cognitive Sta tus Patient at Baseline [facility] Work Phone: Clinical Notes 07-21-2021 to 01-22-2024 Denisse Chiang MD - 01/22/2024 3:40 PM CHAYA Alba - 01/03/2024 3:00 PM EDTDischarge InstructionsOp Note - Denisse Chiang MD - 12/24/2023 6:05 PM EDTMichjames Chiang MD - 12/24/2023 1:30 PM EDT Note Date & Type Note Facility 01-22-2024 History of Presen t illness Narrative HPI Ramy Martinez is a 43 y.o. female who has a hx of pancolonic UC, which was diagnosed in 2006. She was started on humira, which caused lupus like symptoms. She also reports developing antibodies to humira. Patient was then switched to Entyvio from [id number]. She unfortunately lost insurance and stopped taking it. She is currently taking Mesalamine. She was referred by [facility], Dr. Rivera for possible rectal prolapse. She presents today to discuss. She was last seen in office on 10/09/23 she was given a tentative date of 12/24/23 for a hemorrhoidectomy. She is s/p excisional hemorrhoidectomy on 12/24/23. Path demonstrating hemorrhoid x2. She presents today for follow up. She reports no pain. She states the first week was the worst pain. She is eating and drinking normally. Normal appetite. She denies issues with bowel habits. She denies dysuria or hematuria. She denies fevers, chills, or sweats. Colonoscopy 09/10/23 (Miguel): 1. Small internal and external hemorrhoids. 2. Mild sigmoid diverticulosis. 3. Normal colonic mucosa throughout the colon, Sparks score 0. Random biopsies every 10 cm were taken to rule out dysplasia. 4. Normal examined terminal ileum. Repeat in 1 year. 5. Path demonstrating normal colonic mucosa, however inactive wellhealed chronic colitis cannot be ruled out. Rectum: inactive chronic colitis. Non-smoker/One glass of wine every 6 months/No Illicit drug use PMH: Choledocholithiasis, Chronic pancolonic UC, Hemorrhoids, DMT2, Asthma, RASHAD-CPAP PSH: Laparoscopic Cholecystectomy, Bilateral tubal ligation, Endometrial ablation, Tonsillectomy, Hernia Repair, Section, C5-6 Disc Repair No family history of CRC or IBD Employment: [employer]; works from home. Mother passed from brain cancer Current Outpatient Medications Medication Sig Dispense Refill albuterol 90 mcg/actuation inhaler INHALE 2 PUFFS BY MOUTH EVERY 4 HOURS IF NEEDED geriatric multivitamins-minerals 0.5-0.6-7-0.7 mg elixir Take 5 mL by mouth once daily. lamoTRIgine (LaMICtal) 25 mg tablet Take 2 tablets (50 mg) by mouth once daily. LORazepam (Ativan) 0.5 mg tablet Take 1 tablet (0.5 mg) by mouth once daily as needed for anxiety. 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 traZODone (Desyrel) 50 mg tablet Take 1 tablet (50 mg) by mouth once daily at bedtime. venlafaxine XR (Effexor-XR) 75 mg 24 hr capsule Take 1 capsule (75 mg) by mouth once daily. No current facility-administered medications for this visit. No Known Allergies Review of Systems Constitutional: Negative for chills and fever. Gastrointestinal: Negative for abdominal distention, abdominal pain, anal bleeding, blood in stool, constipation, diarrhea, nausea, rectal pain and vomiting. Genitourinary: Negative for dysuria and hematuria. Physical Exam Constitutional: General: She is not in acute distress. Appearance: Normal appearance. She is not ill-appearing. HENT: Head: Normocephalic. Mouth/Throat: Mouth: Mucous membranes are moist. Eyes: Extraocular Movements: Extraocular movements intact. Cardiovascular: Rate and Rhythm: Normal rate and regular rhythm. Pulses: Normal pulses. Heart sounds: Normal heart sounds. No murmur heard. Pulmonary: Effort: Pulmonary effort is normal. No respiratory distress. Breath sounds: Normal breath sounds. No wheezing, rhonchi or rales. Chest: Chest wall: No tenderness. Abdominal: General: There is no distension. Palpations: There is no mass. Tenderness: There is no abdominal tenderness. There is no guarding or rebound. Hernia: No hernia is present. Musculoskeletal: General: No swelling or deformity. Cervical back: Neck supple. No rigidity. Right lower leg: No edema. Left lower leg: No edema. Skin: General: Skin is warm. Coloration: Skin is not jaundiced or pale. Neurological: General: No focal deficit present. Mental Status: She is alert and oriented to person, place, and time. Mental status is at baseline. Psychiatric: Mood and Affect: Mood normal. Behavior: Behavior normal. Thought Content: Thought content normal. Judgment: Judgment normal. Assessment and Plan: #Prolapsing internal hemorrhoids; right and left posterior S/P excisional hemorrhoidectomy 12/24/2023 - Expected post-operative course - Pathology reviewed with patient - Follow-up as needed Denisse Chiang MD 01/22/2024 5:08 PM documented in this encounter [facility] Work Phone: 01-03-2024 History of Presen t illness Narrative Reason for Appointment: Patient ID: Ramy Martinez is a 43 y.o. female who presents for Well Women Visit Patient presents today for Annual Exam. MEDICATIONS Current Outpatient Medications Medication Instructions lamoTRIgine (LAMICTAL) 50 mg, Oral, Daily RT mesalamine ER (APRISO) 1.5 g, Oral, Daily traZODone (DESYREL) 50 mg, Oral, Nightly venlafaxine XR (EFFEXOR XR) 75 mg, Oral, Daily RT ALLERGIES No Known Allergies PROBLEMS Active Ambulatory Problems Diagnosis Date Noted No Active Ambulatory Problems Resolved Ambulatory Problems Diagnosis Date Noted No Resolved Ambulatory Problems Past Medical History: Diagnosis Date Abdominal pain Allergies Anxiety Asthma (CMS/HCC) Cyst of stomach 1986 History of migraine headaches Irritable bowel disease Ulcerative colitis (CMS/HCC) HISTORY PAST MEDICAL HISTORY SOCIAL HISTORY Past Medical History: Diagnosis Date Abdominal pain hx. of ? Inflammatory Bowel(2009) Allergies Anxiety Asthma (CMS/HCC) Cyst of stomach 1986 History of migraine headaches Irritable bowel disease Ulcerative colitis (CMS/[facility]) Social History Tobacco Use Smoking status: Never Smokeless tobacco: Not on file Substance Use Topics Alcohol use: Never Drug use: Not on file FAMILY HISTORY Family History Problem Relation Name Age of Onset No Known Problems Mother SURGICAL HISTORY Past Surgical History: Procedure Laterality Date COLONOSCOPY 08/2009 Abd Pain hx. of Inflammatory Bowel COLONOSCOPY 2006 HERNIA REPAIR 2007 TONSILLECTOMY 1987 REVIEW OF SYSTEMS Review of Systems: Review of Systems Constitutional: Negative. HENT: Negative. Eyes: Negative. Respiratory: Negative. Cardiovascular: Negative. Gastrointestinal: Negative. Genitourinary: Negative. Musculoskeletal: Negative. Skin: Negative. Neurological: Negative. All other systems reviewed and are negative. Hematological: Negative. Endocrine: Negative. Allergic/Immunologic: Negative. OBJECTIVE Objective: Physical Exam Constitutional: Appearance: Normal appearance. Genitourinary: Right Adnexa: not tender and no mass present. Left Adnexa: not tender and no mass present. No cervical discharge. Breasts: Breasts are soft. Right: Normal. Left: Normal. HENT: Head: Normocephalic. Nose: Nose normal. Mouth/Throat: Mouth: Mucous membranes are moist. Cardiovascular: Rate and Rhythm: Normal rate. Pulmonary: Effort: Pulmonary effort is normal. Abdominal: General: Bowel sounds are normal. Palpations: Abdomen is soft. Musculoskeletal: General: Normal range of motion. Cervical back: Normal range of motion. Neurological: General: No focal deficit present. Mental Status: She is alert. Skin: General: Skin is warm and dry. Psychiatric: Mood and Affect: Mood normal. Vitals and nursing note reviewed. Exam conducted with a electromagnet crane operator present. Vitals: Estimated body mass index is 29.64 kg/m as calculated from the following: Height as of 04/16/20: 5' 5 . Weight as of this encounter: 178 lb 1.9 oz. BP: 110/76 No LMP recorded. ASSESSMENT & PLAN ICD-10-CM 1. Well woman exam with routine gynecological exam Z01.419 THIN PREP TIS PAP AND HR HPV DNA 2. Breast cancer screening by mammogram Z12.31 Bilateral screening mammogram Bilateral screening mammogram Annual Exam: Patient presents today for an annual exam. Patient states she is doing well and has no complaints. Pap was obtained without difficulty. Pt recently had hemorrhoidectomy, rectum healing well, suture intact Orders Placed This Encounter Procedures Bilateral screening mammogram Follow Up: Patient is to return in one year for annual unless needed otherwise. Documented by Kianna Cox LPN on behalf of: CHAYA Jean documented in this encounter [facility] 12-24-2023 Hospital Discharg e instructions Denisse Chiang MD - 12/24/2023 6:44 PM EDT WOUND CARE: Recommend wearing panty-liner or applying gauze between buttocks to keep undergarments clean; change at least daily until no further drainage. Do not remove any stitches or drains or setons. PAIN CONTROL: Can utilize prescribed percocet as needed. Do not combine percocet with acetaminophen (tylenol) to avoid exceeding safe daily recommended intake of acetaminophen. Can utilize ibuprofen. OK to take sitz baths two-three times daily as needed. Take colace as prescribed to keep stools soft. ACTIVITY: Avoid strenuous activity and heavy lifting for two weeks. Do not drive or operative heavy machinery for at least first 24 hours after surgery; if you do not feel able to safely operate after first 24 hours or are taking narcotics (ie percocet or vicodin) then do not operative heavy machinery or drive. DIET: Resume previous diet. FOLLOW-UP: Please call office at [phone] to schedule follow-up appointment for 3-4 weeks from date of surgery. documented in this encounter [facility] Work Phone: 12-24-2023 Note Formatting of this n ote is different from the original. Excisional Hemorrhoidectomy Operative Note Date: 12/24/2023 OR Location: [facility] OR Name: Ramy Martinez : 1980, Age: 43 y.o., , Sex: female Diagnosis Pre-op Diagnosis * Prolapsed internal hemorrhoids [K64.8] Post-op Diagnosis * Prolapsed internal hemorrhoids [K64.8] Procedures Excisional hemorrhoidectomy, 2 columns Surgeons * Denisse Chiang - Primary Resident/Fellow/Other Processing Spec: Surgeons and Role: * Krystal Cerrato PA-C - Assisting Procedure Summary Anesthesia: General ASA: II Anesthesia Staff: Anesthesiologist: Renaldo Horowitz MD C-AA: NOREEN Hopkins Estimated Blood Loss: 25mL Intra-op Medications: Administrations occurring from 1330 to 1445 on 12/24/23: * No intraprocedure medications in log * Anesthesia Record Intraprocedure I/O Totals Intake lactated Ringer's infusion 700.00 mL ceFAZolin (Ancef) 2 g in dextrose (iso) IV 100 mL 100.00 mL metroNIDAZOLE (Flagyl) 500 mg in sodium chloride (iso) IV 100 mL 100.00 mL Total Intake 900 mL Output Est. Blood Loss 25 mL Total Output 25 mL Net Net Volume 875 mL Specimen: ID Type Source Tests Collected by Time 1 : RIGHT LATERAL HEMORRHOID Tissue HEMORRHOID SURGICAL PATHOLOGY EXAM Denisse Chiang MD 12/24/20231815 2 : LEFT POSTERIOR HEMORRHOID Tissue HEMORRHOID SURGICAL PATHOLOGY EXAM Denisse Chiang MD 12/24/2023 183 Staff: Pin Cleaner: Emily Scrub Person: Denisse Drains and/or Catheters: * None in log * Tourniquet Times: Implants: Findings: Enlarged right lateral and left posterior internal hemorrhoid columns Indications: Ramy Martinez is an 43 y.o. female who is having surgery for Prolapsed internal hemorrhoids [K64.8]. The patient was seen in the preoperative area. The risks, benefits, complications, treatment options, non-operative alternatives, expected recovery and outcomes were discussed with the patient. The possibilities of reaction to medication, pulmonary aspiration, injury to surrounding structures, bleeding, recurrent infection, the need for additional procedures, failure to diagnose a condition, and creating a complication requiring transfusion or operation were discussed with the patient. The patient concurred with the proposed plan, giving informed consent. The site of surgery was properly noted/marked if necessary per policy. The patient has been actively warmed in preoperative area. Preoperative antibiotics have been ordered and given within 1 hours of incision. Venous thrombosis prophylaxis have been ordered including bilateral sequential compression devices Procedure Details: Preoperative checklist performed in the preoperative area confirming correct patient and correct procedure. The patient was brought to the operating room. Sequential compression devices were applied to bilateral lower extremities. Following induction of general anesthesia, the patient was placed in prone yomi-knife position. Careful attention was paid to proper positioning of bilateral arms and padding of pressure points. The perineum was prepped with betadine solution. The patient was draped in the usual sterile fashion. A time out was performed, once again confirming correct patient and correct procedure. Following completion of perioperative antibiotics, a perianal exam was performed. There were no external hemorrhoids. There were no prolapsed internal hemorrhoids. A well-lubricated digital rectal exam was performed and negative for palpable masses or blood. A lubricated lighted Hill-Brownlee retractor was inserted into the anorectal canal and 360 degree examination performed. There were enlarged internal hemorrhoids in the right lateral and left posterior positions that corresponded to the patient's photographed prolapsed internal hemorrhoids. Decision was made to excise these internal hemorrhoids. Attention was directed at the right lateral internal hemorrhoid column first. The hemorrhoid was grasped with Debakey forceps and retracted perpendicular to the anorectal canal. The skin at the anal verge was anesthetized with 0.5% marcaine with epinephrine. Using the #15 scalpel blade, the skin at the anal verge was incised and extended superiorly along both sides of the hemorrhoid towards the hemorrhoidal pedicle. Electrocautery was used for hemostasis. The sphincter complex was dissected off the column bluntly. As the incision was carried towards the apex, the apex was clamped with a Bita forceps and the overlying hemorrhoidal tissue excised with Metzenbaum scissors. The apex was suture ligated with a 2-0 vicryl which was then run in continuous fashion distally towards the anal verge. Small bites of underlying sphincter were taken to obliterate any space. At the very distal aspect of the incision, a small opening was left for drainage. The left posterior internal hemorrhoid was then excised in identical fashion. The anorectal canal was irrigated with normal saline. There was good hemostasis. Additional 0.5% marcaine with epinephrine was injected circumferentially. The perianal region was cleansed and dried. A count of instruments, needles, and sponges was performed and confirmed to be correct. A sign out was performed. The patient was awakened and taken to the recovery area in stable condition. Complications: None; patient tolerated the procedure well. Disposition: PACU - hemodynamically stable. Condition: stable Additional Details: N/A Attending Attestation: I was present and scrubbed for the entire procedure. Denisse Chiang [facility] Work Phone: 12-24-2023 Note Formatting of this n ote is different from the original. Date: 12/24/2023 OR Location: [facility] OR Name: Ramy Martinez, : 1980, Age: 43 y.o., , Sex: female Diagnosis Pre-op Diagnosis * Prolapsed internal hemorrhoids [K64.8] Post-op Diagnosis * Prolapsed internal hemorrhoids [K64.8] Procedures Excisional hemorrhoidectomy, 2 columns Surgeons * Denisse Chiang - Primary Resident/Fellow/Other Processing Spec: Surgeons and Role: * Krystal Cerrato PA-C - Assisting Procedure Summary Anesthesia: General ASA: II Anesthesia Staff: Anesthesiologist: Renaldo Horowitz MD C-AA: NOREEN Hopkins Estimated Blood Loss: 25mL Intra-op Medications: Administrations occurring from 1330 to 1445 on 12/24/23: * No intraprocedure medications in log * Anesthesia Record Intraprocedure I/O Totals Output Est. Blood Loss 25 mL Total Output 25 mL Specimen: ID Type Source Tests Collected by Time 1 : RIGHT LATERAL HEMORRHOID Tissue HEMORRHOID SURGICAL PATHOLOGY EXAM Denisse Chiang MD 12/24/20231815 2 : LEFT POSTERIOR HEMORRHOID Tissue HEMORRHOID SURGICAL PATHOLOGY EXAM Denisse Chiang MD 12/24/20231830 Staff: Pin Cleaner: Emily Galeas Person: Denisse Findings: Enlarged right lateral and left posterior internal hemorrhoid columns Complications: None; patient tolerated the procedure well. Disposition: PACU - hemodynamically stable. Condition: stable Specimens Collected: ID Type Source Tests Collected by Time 1 : RIGHT LATERAL HEMORRHOID Tissue HEMORRHOID SURGICAL PATHOLOGY EXAM Denisse Chiang MD 12/24/20231815 2 : LEFT POSTERIOR HEMORRHOID Tissue HEMORRHOID SURGICAL PATHOLOGY EXAM Denisse Chiang MD 12/24/20231830 Attending Attestation: I was present and scrubbed for the entire procedure. Denisse Chiang [facility] Work Phone: 12-24-2023 Miscellaneous Notes Excisional Hemorrhoidectomy Operative Note Date: 12/24/2023 OR Location: [facility] OR Name: Ramy Martinez, : 1980, Age: 43 y.o., , Sex: female Diagnosis Pre-op Diagnosis * Prolapsed internal hemorrhoids [K64.8] Post-op Diagnosis * Prolapsed internal hemorrhoids [K64.8] Procedures Excisional hemorrhoidectomy, 2 columns Surgeons * Denisse Chiang - Primary Resident/Fellow/Other Processing Spec: Surgeons and Role: * Krystal Cerrato PA-C - Assisting Procedure Summary Anesthesia: General ASA: II Anesthesia Staff: Anesthesiologist: Renaldo Horowitz MD C-AA: NOREEN Hopkins Estimated Blood Loss: 25mL Intra-op Medications: Administrations occurring from 1330 to 1445 on 12/24/23: * No intraprocedure medications in log * Anesthesia Record Intraprocedure I/O Totals Intake lactated Ringer's infusion 700.00 mL ceFAZolin (Ancef) 2 g in dextrose (iso) IV 100 mL 100.00 mL metroNIDAZOLE (Flagyl) 500 mg in sodium chloride (iso) IV 100 mL 100.00 mL Total Intake 900 mL Output Est. Blood Loss 25 mL Total Output 25 mL Net Net Volume 875 mL Specimen: ID Type Source Tests Collected by Time 1 : RIGHT LATERAL HEMORRHOID Tissue HEMORRHOID SURGICAL PATHOLOGY EXAM Denisse Chiang MD 12/24/2023 181 2 : LEFT POSTERIOR HEMORRHOID Tissue HEMORRHOID SURGICAL PATHOLOGY EXAM Denisse Chiang MD 12/24/2023 1831 Staff: Pin Cleaner: Emily Venturaub Person: Denisse Drains and/or Catheters: * None in log * Tourniquet Times: Implants: Findings: Enlarged right lateral and left posterior internal hemorrhoid columns Indications: Ramy Martinez is an 43 y.o. female who is having surgery for Prolapsed internal hemorrhoids [K64.8]. The patient was seen in the preoperative area. The risks, benefits, complications, treatment options, non-operative alternatives, expected recovery and outcomes were discussed with the patient. The possibilities of reaction to medication, pulmonary aspiration, injury to surrounding structures, bleeding, recurrent infection, the need for additional procedures, failure to diagnose a condition, and creating a complication requiring transfusion or operation were discussed with the patient. The patient concurred with the proposed plan, giving informed consent. The site of surgery was properly noted/marked if necessary per policy. The patient has been actively warmed in preoperative area. Preoperative antibiotics have been ordered and given within 1 hours of incision. Venous thrombosis prophylaxis have been ordered including bilateral sequential compression devices Procedure Details: Preoperative checklist performed in the preoperative area confirming correct patient and correct procedure. The patient was brought to the operating room. Sequential compression devices were applied to bilateral lower extremities. Following induction of general anesthesia, the patient was placed in prone yomi-knife position. Careful attention was paid to proper positioning of bilateral arms and padding of pressure points. The perineum was prepped with betadine solution. The patient was draped in the usual sterile fashion. A time out was performed, once again confirming correct patient and correct procedure. Following completion of perioperative antibiotics, a perianal exam was performed. There were no external hemorrhoids. There were no prolapsed internal hemorrhoids. A well-lubricated digital rectal exam was performed and negative for palpable masses or blood. A lubricated lighted Hill-Brownlee retractor was inserted into the anorectal canal and 360 degree examination performed. There were enlarged internal hemorrhoids in the right lateral and left posterior positions that corresponded to the patient's photographed prolapsed internal hemorrhoids. Decision was made to excise these internal hemorrhoids. Attention was directed at the right lateral internal hemorrhoid column first. The hemorrhoid was grasped with Debakey forceps and retracted perpendicular to the anorectal canal. The skin at the anal verge was anesthetized with 0.5% marcaine with epinephrine. Using the #15 scalpel blade, the skin at the anal verge was incised and extended superiorly along both sides of the hemorrhoid towards the hemorrhoidal pedicle. Electrocautery was used for hemostasis. The sphincter complex was dissected off the column bluntly. As the incision was carried towards the apex, the apex was clamped with a Bita forceps and the overlying hemorrhoidal tissue excised with Metzenbaum scissors. The apex was suture ligated with a 2-0 vicryl which was then run in continuous fashion distally towards the anal verge. Small bites of underlying sphincter were taken to obliterate any space. At the very distal aspect of the incision, a small opening was left for drainage. The left posterior internal hemorrhoid was then excised in identical fashion. The anorectal canal was irrigated with normal saline. There was good hemostasis. Additional 0.5% marcaine with epinephrine was injected circumferentially. The perianal region was cleansed and dried. A count of instruments, needles, and sponges was performed and confirmed to be correct. A sign out was performed. The patient was awakened and taken to the recovery area in stable condition. Complications: None; patient tolerated the procedure well. Disposition: PACU - hemodynamically stable. Condition: stable Additional Details: N/A Attending Attestation: I was present and scrubbed for the entire procedure. Denisse Chiang Date: 12/24/2023 OR Location: [facility] OR Name: Ramy Martinez, : 1980, Age: 43 y.o., , Sex: female Diagnosis Pre-op Diagnosis * Prolapsed internal hemorrhoids [K64.8] Post-op Diagnosis * Prolapsed internal hemorrhoids [K64.8] Procedures Excisional hemorrhoidectomy, 2 columns Surgeons * Denisse Chiang - Primary Resident/Fellow/Other Processing Spec: Surgeons and Role: * Krystal Cerrato PA-C - Assisting Procedure Summary Anesthesia: General ASA: II Anesthesia Staff: Anesthesiologist: Renaldo Horowitz MD C-AA: NOREEN Hopkins Estimated Blood Loss: 25mL Intra-op Medications: Administrations occurring from 1330 to 1445 on 12/24/23: * No intraprocedure medications in log * Anesthesia Record Intraprocedure I/O Totals Output Est. Blood Loss 25 mL Total Output 25 mL Specimen: ID Type Source Tests Collected by Time 1 : RIGHT LATERAL HEMORRHOID Tissue HEMORRHOID SURGICAL PATHOLOGY EXAM Denisse Chiang MD 12/24/20231815 2 : LEFT POSTERIOR HEMORRHOID Tissue HEMORRHOID SURGICAL PATHOLOGY EXAM Denisse Chiang MD 12/24/2023 183 Staff: Pin Cleaner: Emily Scrub Person: Denisse Findings: Enlarged right lateral and left posterior internal hemorrhoid columns Complications: None; patient tolerated the procedure well. Disposition: PACU - hemodynamically stable. Condition: stable Specimens Collected: ID Type Source Tests Collected by Time 1 : RIGHT LATERAL HEMORRHOID Tissue HEMORRHOID SURGICAL PATHOLOGY EXAM Denisse Chiang MD 12/24/20231815 2 : LEFT POSTERIOR HEMORRHOID Tissue HEMORRHOID SURGICAL PATHOLOGY EXAM Denisse Chiang MD 12/24/2023 1831 Attending Attestation: I was present and scrubbed for the entire procedure. Denisse Chiang documented in this encounter [facility] Work Phone: 12-24-2023 Attending History and physical note H&P reviewed. The patient was examined and there are no changes to the H&P. Source Note - Denisse Chiang MD - 11/28/2023 11:40 AM EDT HPI Ramy Martinez is a 43 y.o. female who has a hx of pancolonic UC, which was diagnosed in 2006. She was started on humira, which caused lupus like symptoms. She also reports developing antibodies to humira. Patient was then switched to Entyvio from [id number]. She unfortunately lost insurance and stopped taking it. She is currently taking Mesalamine. She was referred by [facility], Dr. Rivera for possible rectal prolapse. She presents today to discuss. She was last seen in office on 10/09/23 she was given a tentative date of 12/24/23 for a hemorrhoidectomy. She presents today for follow up. Patient was able to take a photograph of the tissue that prolapses from her anus. Photograph is in the EMR and demonstrates prolapsing internal hemorrhoids. No evidence of rectal prolapse. She is here to discuss excisional hemorrhoidectomy. No new complaints. Colonoscopy 09/10/23 (Miguel): 1. Small internal and external hemorrhoids. 2. Mild sigmoid diverticulosis. 3. Normal colonic mucosa throughout the colon, Sparks score 0. Random biopsies every 10 cm were taken to rule out dysplasia. 4. Normal examined terminal ileum. Repeat in 1 year. 5. Path demonstrating normal colonic mucosa, however inactive wellhealed chronic colitis cannot be ruled out. Rectum: inactive chronic colitis. Non-smoker/One glass of wine every 6 months/No Illicit drug use PMH: Choledocholithiasis, Chronic pancolonic UC, Hemorrhoids, DMT2, Asthma, RASHAD-CPAP PSH: Laparoscopic Cholecystectomy, Bilateral tubal ligation, Endometrial ablation, Tonsillectomy, Hernia Repair, Section, C5-6 Disc Repair No family history of CRC or IBD Employment: [employer]; works from home. Mother passed from brain cancer Current Outpatient Medications Medication Sig Dispense Refill albuterol 90 mcg/actuation inhaler INHALE 2 PUFFS BY MOUTH EVERY 4 HOURS IF NEEDED fexofenadine (Danya) 180 mg tablet Take 1 tablet (180 mg) by mouth once daily. lamoTRIgine (LaMICtal) 25 mg tablet Take 2 tablets (50 mg) by mouth once daily. LORazepam (Ativan) 0.5 mg tablet Take 1 tablet (0.5 mg) by mouth once daily as needed for anxiety. mesalamine ER (Apriso) 0.375 gram 24 hr capsule venlafaxine XR (Effexor-XR) 75 mg 24 hr capsule Take 1 capsule (75 mg) by mouth once daily. No current facility-administered medications for this visit. No Known Allergies Review of Systems Constitutional: Negative for activity change, appetite change, chills, diaphoresis, fatigue, fever and unexpected weight change. Respiratory: Negative for chest tightness and shortness of breath. Cardiovascular: Negative for chest pain, palpitations and leg swelling. Gastrointestinal: Negative for abdominal distention, abdominal pain, anal bleeding, blood in stool, constipation, diarrhea, nausea, rectal pain and vomiting. Endocrine: Negative for polydipsia, polyphagia and polyuria. Genitourinary: Negative for dysuria and hematuria. Neurological: Negative for dizziness, seizures and light-headedness. Hematological: Negative. Physical Exam Constitutional: General: She is not in acute distress. Appearance: Normal appearance. She is not ill-appearing. HENT: Head: Normocephalic. Mouth/Throat: Mouth: Mucous membranes are moist. Eyes: Extraocular Movements: Extraocular movements intact. Cardiovascular: Rate and Rhythm: Normal rate and regular rhythm. Pulses: Normal pulses. Heart sounds: Normal heart sounds. No murmur heard. Pulmonary: Effort: Pulmonary effort is normal. No respiratory distress. Breath sounds: Normal breath sounds. No wheezing, rhonchi or rales. Chest: Chest wall: No tenderness. Abdominal: General: There is no distension. Palpations: There is no mass. Tenderness: There is no abdominal tenderness. There is no guarding or rebound. Hernia: No hernia is present. Musculoskeletal: General: No swelling or deformity. Cervical back: Neck supple. No rigidity. Right lower leg: No edema. Left lower leg: No edema. Skin: General: Skin is warm. Coloration: Skin is not jaundiced or pale. Neurological: General: No focal deficit present. Mental Status: She is alert and oriented to person, place, and time. Mental status is at baseline. Psychiatric: Mood and Affect: Mood normal. Behavior: Behavior normal. Thought Content: Thought content normal. Judgment: Judgment normal. Assessment and Plan: #Prolapsing internal hemorrhoids; right and left posterior - Excisional hemorrhoidectomy 12/24/2023 - R/B/A discussed with patient including risks of bleeding, infection, anal stenosis, injury to sphincter complex and impact on fecal incontinence Denisse Chiang MD 11/28/2023 12:04 PM [facility] Work Phone: 12-24-2023 History and physical note H&P reviewed. The patient was examined and there are no changes to the H&P. Source Note - Denisse Chiang MD - 11/28/2023 11:40 AM EDT HPI Ramy Martinez is a 43 y.o. female who has a hx of pancolonic UC, which was diagnosed in 2006. She was started on humira, which caused lupus like symptoms. She also reports developing antibodies to humira. Patient was then switched to Entyvio from [id number]. She unfortunately lost insurance and stopped taking it. She is currently taking Mesalamine. She was referred by [facility], Dr. Rivera for possible rectal prolapse. She presents today to discuss. She was last seen in office on 10/09/23 she was given a tentative date of 12/24/23 for a hemorrhoidectomy. She presents today for follow up. Patient was able to take a photograph of the tissue that prolapses from her anus. Photograph is in the EMR and demonstrates prolapsing internal hemorrhoids. No evidence of rectal prolapse. She is here to discuss excisional hemorrhoidectomy. No new complaints. Colonoscopy 09/10/23 (Miguel): 1. Small internal and external hemorrhoids. 2. Mild sigmoid diverticulosis. 3. Normal colonic mucosa throughout the colon, Sparks score 0. Random biopsies every 10 cm were taken to rule out dysplasia. 4. Normal examined terminal ileum. Repeat in 1 year. 5. Path demonstrating normal colonic mucosa, however inactive wellhealed chronic colitis cannot be ruled out. Rectum: inactive chronic colitis. Non-smoker/One glass of wine every 6 months/No Illicit drug use PMH: Choledocholithiasis, Chronic pancolonic UC, Hemorrhoids, DMT2, Asthma, RASHAD-CPAP PSH: Laparoscopic Cholecystectomy, Bilateral tubal ligation, Endometrial ablation, Tonsillectomy, Hernia Repair, Section, C5-6 Disc Repair No family history of CRC or IBD Employment: [employer]; works from home. Mother passed from brain cancer Current Outpatient Medications Medication Sig Dispense Refill albuterol 90 mcg/actuation inhaler INHALE 2 PUFFS BY MOUTH EVERY 4 HOURS IF NEEDED fexofenadine (Danya) 180 mg tablet Take 1 tablet (180 mg) by mouth once daily. lamoTRIgine (LaMICtal) 25 mg tablet Take 2 tablets (50 mg) by mouth once daily. LORazepam (Ativan) 0.5 mg tablet Take 1 tablet (0.5 mg) by mouth once daily as needed for anxiety. mesalamine ER (Apriso) 0.375 gram 24 hr capsule venlafaxine XR (Effexor-XR) 75 mg 24 hr capsule Take 1 capsule (75 mg) by mouth once daily. No current facility-administered medications for this visit. No Known Allergies Review of Systems Constitutional: Negative for activity change, appetite change, chills, diaphoresis, fatigue, fever and unexpected weight change. Respiratory: Negative for chest tightness and shortness of breath. Cardiovascular: Negative for chest pain, palpitations and leg swelling. Gastrointestinal: Negative for abdominal distention, abdominal pain, anal bleeding, blood in stool, constipation, diarrhea, nausea, rectal pain and vomiting. Endocrine: Negative for polydipsia, polyphagia and polyuria. Genitourinary: Negative for dysuria and hematuria. Neurological: Negative for dizziness, seizures and light-headedness. Hematological: Negative. Physical Exam Constitutional: General: She is not in acute distress. Appearance: Normal appearance. She is not ill-appearing. HENT: Head: Normocephalic. Mouth/Throat: Mouth: Mucous membranes are moist. Eyes: Extraocular Movements: Extraocular movements intact. Cardiovascular: Rate and Rhythm: Normal rate and regular rhythm. Pulses: Normal pulses. Heart sounds: Normal heart sounds. No murmur heard. Pulmonary: Effort: Pulmonary effort is normal. No respiratory distress. Breath sounds: Normal breath sounds. No wheezing, rhonchi or rales. Chest: Chest wall: No tenderness. Abdominal: General: There is no distension. Palpations: There is no mass. Tenderness: There is no abdominal tenderness. There is no guarding or rebound. Hernia: No hernia is present. Musculoskeletal: General: No swelling or deformity. Cervical back: Neck supple. No rigidity. Right lower leg: No edema. Left lower leg: No edema. Skin: General: Skin is warm. Coloration: Skin is not jaundiced or pale. Neurological: General: No focal deficit present. Mental Status: She is alert and oriented to person, place, and time. Mental status is at baseline. Psychiatric: Mood and Affect: Mood normal. Behavior: Behavior normal. Thought Content: Thought content normal. Judgment: Judgment normal. Assessment and Plan: #Prolapsing internal hemorrhoids; right and left posterior - Excisional hemorrhoidectomy 12/24/2023 - R/B/A discussed with patient including risks of bleeding, infection, anal stenosis, injury to sphincter complex and impact on fecal incontinence Denisse Chiang MD 11/28/2023 12:04 PM documented in this encounter [facility] Work Phone: 10-09-2023 History of Presen t illness Narrative Associated Order(s): Anoscopy Post-Procedure Diagnose(s): Rectal prolapse; Internal hemorrhoids HPI Ramy Martinez is a 43 y.o. female who has a hx of pancolonic UC, which was diagnosed in 2006. She was started on humira, which caused lupus like symptoms. She also reports developing antibodies to humira. Patient was then switched to Entyvio from [id number]. She unfortunately lost insurance and stopped taking it. She is currently taking Mesalamine. She was referred by [facility], Dr. Rivera for possible rectal prolapse. She presents today to discuss. She is accompanied by her son. She states that over the last 6-7 months she has been experiencing prolapse of tissue from the anus. She is able to self reduce tissue. She states she does have hemorrhoids. She has a sting like olive green bm daily. She has some fecal urgency, but denies fecal incontinence. She has involuntary flatulence. She can feel the prolapse random times throughout the day or when she is on the toilet. She states that the tissue is prolapsing out more now over the past 6-7 months. She denies any hematochezia or melena, just some occasional blood on toilet paper. She has a low appetite. She has been losing weight voluntarily. She has frequent urination, but denies any dysuria or hematuria. She has had a vaginal with first child and a section with second child. Patient states she did have some tearing with vaginal delivery of first child. Colonoscopy 09/10/23 (Miguel): 1. Small internal and external hemorrhoids. 2. Mild sigmoid diverticulosis. 3. Normal colonic mucosa throughout the colon, Sparks score 0. Random biopsies every 10 cm were taken to rule out dysplasia. 4. Normal examined terminal ileum. Repeat in 1 year. 5. Path demonstrating normal colonic mucosa, however inactive wellhealed chronic colitis cannot be ruled out. Rectum: inactive chronic colitis. Non-smoker/One glass of wine every 6 months/No Illicit drug use PMH: Choledocholithiasis, Chronic pancolonic UC, Hemorrhoids, DMT2, Asthma, RASHAD-CPAP PSH: Laparoscopic Cholecystectomy, Bilateral tubal ligation, Endometrial ablation, Tonsillectomy, Hernia Repair, Section, C5-6 Disc Repair No family history of CRC or IBD Employment: [employer]; works from home. Mother passed from brain cancer Current Outpatient Medications Medication Sig Dispense Refill LORazepam (Ativan) 0.5 mg tablet Take 1 tablet (0.5 mg) by mouth once daily as needed for anxiety. albuterol 90 mcg/actuation inhaler INHALE 2 PUFFS BY MOUTH EVERY 4 HOURS IF NEEDED fexofenadine (Danya) 180 mg tablet Take 1 tablet (180 mg) by mouth once daily. lamoTRIgine (LaMICtal) 25 mg tablet Take 2 tablets (50 mg) by mouth once daily. mesalamine ER (Apriso) 0.375 gram 24 hr capsule venlafaxine XR (Effexor-XR) 75 mg 24 hr capsule Take 1 capsule (75 mg) by mouth once daily. No current facility-administered medications for this visit. No Known Allergies Review of Systems Constitutional: Negative for activity change, appetite change, chills, diaphoresis, fatigue, fever and unexpected weight change. Respiratory: Negative for chest tightness and shortness of breath. Cardiovascular: Negative for chest pain, palpitations and leg swelling. Gastrointestinal: Positive for anal bleeding. Negative for abdominal distention, abdominal pain, blood in stool, constipation, diarrhea, nausea, rectal pain and vomiting. Endocrine: Negative for polydipsia, polyphagia and polyuria. Genitourinary: Negative for dysuria and hematuria. Neurological: Positive for dizziness and light-headedness. Negative for seizures. Hematological: Negative. Physical Exam Constitutional: General: She is not in acute distress. Appearance: Normal appearance. She is not ill-appearing. HENT: Head: Normocephalic. Mouth/Throat: Mouth: Mucous membranes are moist. Eyes: Extraocular Movements: Extraocular movements intact. Pupils: Pupils are equal, round, and reactive to light. Cardiovascular: Rate and Rhythm: Normal rate and regular rhythm. Pulses: Normal pulses. Heart sounds: Normal heart sounds. No murmur heard. Pulmonary: Effort: Pulmonary effort is normal. No respiratory distress. Breath sounds: Normal breath sounds. No wheezing, rhonchi or rales. Chest: Chest wall: No tenderness. Abdominal: General: There is no distension. Palpations: There is no mass. Tenderness: There is no abdominal tenderness. There is no guarding or rebound. Hernia: No hernia is present. Musculoskeletal: General: No swelling or deformity. Cervical back: Neck supple. No rigidity. Right lower leg: No edema. Left lower leg: No edema. Skin: General: Skin is warm. Coloration: Skin is not jaundiced or pale. Neurological: General: No focal deficit present. Mental Status: She is alert and oriented to person, place, and time. Mental status is at baseline. Psychiatric: Mood and Affect: Mood normal. Behavior: Behavior normal. Thought Content: Thought content normal. Judgment: Judgment normal. Anoscopy Date/Time: 10/09/2023 1:37 PM Performed by: Denisse Chiang MD Authorized by: Denisse Chiang MD Consent: Consent obtained: Verbal Consent given by: Patient Procedure details: Internal hemorrhoids: yes (Right and left posterior, large, non-bleeding and non-prolapsing on exam today) Post-procedure details: Procedure completion: Tolerated Assessment and Plan: #Rectal prolapse - None visualized today on exam or with patient sitting on commode - Instructed patient to take a picture of what is prolapsing out from the anus and upload to [facility] for review #Internal hemorrhoids; right and left posterior - Large but non-prolapsing and non-bleeding on anoscopic exam today - Discussed with patient that if she is not experiencing rectal prolapse, she is likely experiencing prolapse of hemorrhoids and these can be treated - Consider RBL vs hemorrhoidectomy - Did not pursue any RBL today as would prefer to r/o rectal prolapse - F/U pending determination of rectal prolapse vs prolapsing internal hemorrhoids Denisse Chiang MD 10/09/2023 1:37 PM documented in this encounter [facility] Work Phone: 09-14-2023 Hospital Discharg e instructions Follow Up Care 09/14/2023 15:08:58 With:Miguel HAQUE, ABDIAS Osorio, [facility] Address: [address] [place] [address], [address] [address] [phone] When:1 year [facility] 09-11-2023 Note [id number] [facility] 09-10-2023 Hospital Discharg e instructions Patient Education 09/10/2023 13:55:16 Colonoscopy, Care After Surgery Jhony (CUSTOM) Colonoscopy Care After Surgery Please read the instructions outlined below and refer to this sheet in the next few weeks. These discharge instructions provide you with general information on caring for yourself after you leave the hospital. Your doctor may also give you specific instructions. While your treatment has been planned according to the most current medical practices available, unavoidable complications occasionally occur. If you have any problems or questions after discharge, please call your doctor. ACTIVITY You may resume your regular activity, but move at a slower pace for the next 24 hours. Take frequent rest periods for the next 24 hours. Walking will help get rid of the air and reduce the bloated feeling in your abdomen (belly). No driving for 24 hours (because of the anesthesia (medicine) used during the test). You may shower. Do not sign any important legal documents or operate any machinery for 24 hours (because of the anesthesia used during the test). NUTRITION Drink plenty of fluids. You may resume your normal diet as instructed by your doctor. Begin with a light meal and progress to your normal diet. Heavy or fried foods are harder to digest and may make you feel nauseated (sick to your stomach). Avoid alcoholic beverages for 24 hours or as instructed. MEDICATIONS You may resume your normal medications unless your doctor tells you otherwise. WHAT YOU CAN EXPECT TODAY Some feelings of bloating in the abdomen. Passage of more gas than usual. Spotting of blood in your stool or on the toilet paper. FOLLOW-UP Your doctor will discuss the results of your test with you. SEEK IMMEDIATE MEDICAL ATTENTION IF: There is more than a spotting of blood in your stool. There is abdominal distention (your abdomen is swollen). There is vomiting. You have a temperature over 101.5 F. There is abdominal pain or discomfort that is severe or gets worse throughout the day. 09/10/2023 13:55:14 Diverticulosis MAGR (CUSTOM) Diverticulosis Many people have small pouches in their colon called diverticulum. The diverticulum bulge outward through weak spots in the colon. You could have one or more of these pouches in the colon. The condition of having these pouches in the colon is called diverticulosis or diverticular disease. Diverticulosis is usually diagnosed by tests to evaluate something else. For example, you may have had a colonoscopy to screen for colon cancer when the diverticulosis was found. Most people with diverticulosis do not have any discomfort or problems. If symptoms develop, they may include mild cramps, bloating, and constipation. A complication of this condition is called diverticulitis. This is when the diverticulum become inflamed and infected. How to treat diverticulosis: Increasing the amount of fiber in the diet may reduce symptoms of diverticulosis and prevent complications such as diverticulitis (infected diverticuli). Fiber keeps stool soft and lowers pressure inside the colon so that bowel contents can move through easily. You should eat 20 to 35 grams of fiber each day. The table below shows the amount of fiber in some foods that you can easily add to your diet. Adding fiber slowly may decrease the bloating and fullness sometimes felt with an immediate high fiber diet. The doctor may also recommend taking a fiber product such as Citrucel or Metamucil once a day. In the past people with diverticulosis were to avoid nuts, corn, and seeds. This has not been found to be true. If you find that certain foods create cramping or bloating, avoid that food. Foods high in fiber include: Fresh fruits, fresh vegetables, legumes (beans), whole wheat bread, bran muffins or cereal, and nuts. See the table below for examples of high fiber foods. Remember, your goal is 20-35 grams per day. Amount of fiber in different foods Food Serving Grams of fiber Fruits Apple (with skin) 1 medium apple 4.4 Banana 1 medium banana 3.1 Oranges 1 orange 3.1 Prunes 1 cup, pitted 12.4 Juices Apple, unsweetened, w/added ascorbic acid 1 cup 0.5 Grapefruit, white, canned, sweetened 1 cup 0.2 Grape, unsweetened, w/added ascorbic acid 1 cup 0.5 Lorane 1 cup 0.7 Vegetables Cooked Green beans 1 cup 4.0 Carrots 1/2 cup sliced 2.3 Peas 1 cup 8.8 Potato (baked, with skin) 1 medium potato 3.8 Raw [place] (with peel) 1 cucumber 1.5 Lettuce 1 cup shredded 0.5 Tomato 1 medium tomato 1.5 Spinach 1 cup 0.7 Legumes Baked beans, canned, no salt added 1 cup 13.9 Kidney beans, canned 1 cup 13.6 Ramirez beans, canned 1 cup 11.6 Lentils, boiled 1 cup 15.6 Breads, pastas, flours Bran muffins 1 medium muffin 5.2 Oatmeal, cooked 1 cup 4.0 White bread 1 slice 0.6 Whole-wheat bread 1 slice 1.9 Pasta and rice, cooked Macaroni 1 cup 2.5 Rice, brown 1 cup 3.5 Rice, white 1 cup 0.6 Spaghetti (regular) 1 cup 2.5 Nuts Almonds 1/2 cup 8.7 Peanuts 1/2 cup 7.9 Chart from [facility] 2013. SEEK IMMEDIATE MEDICAL CARE IF: You develop abdominal (belly) pain. An oral temperature above _ 101 F__develops. Repeated vomiting occurs. Blood is being passed in stools (bright red or black tarry stools). You develop any bowel problems or changes which you have not had before. Extra Information: To learn how much fiber and other nutrients are in different foods, visit the [place] Department of Agriculture (USDA) National Nutrient Database at: http://www.nal.usda.gov/fnic/fo odcomp/search/ Created using data from the USDA National Nutrient Database for Standard Reference. Available at http://www.nal.usda.gov/fnic/fo odcomp/search/. Information adapted from: [facility] Patient Information 2009 [employer]. [facility] 2012 http://www.Definicare/content s/hbpsfkulihav-hbnorqf-mstnvz-t -basics 09/10/2023 13:55:11 Hemorrhoids, Unpa-sh-Lguo Hemorrhoids Hemorrhoids are swollen veins that may develop: In the butt (rectum). These are called internal hemorrhoids. Around the opening of the butt (anus). These are called external hemorrhoids. Hemorrhoids can cause pain, itching, or bleeding. Most of the time, they do not cause serious problems. They usually get better with diet changes, lifestyle changes, and other home treatments. What are the causes? This condition may be caused by: Having trouble pooping (constipation). Pushing hard (straining) to poop. Watery poop (diarrhea). . Being very overweight (obese). Sitting for long periods of time. Heavy lifting or other activity that causes you to strain. Anal sex. Riding a bike for a long period of time. What are the signs or symptoms? Symptoms of this condition include: Pain. Itching or soreness in the butt. Bleeding from the butt. Leaking poop. Swelling in the area. One or more lumps around the opening of your butt. How is this diagnosed? A doctor can often diagnose this condition by looking at the affected area. The doctor may also: Do an exam that involves feeling the area with a gloved hand (digital rectal exam). Examine the area inside your butt using a small tube (anoscope). Order blood tests. This may be done if you have lost a lot of blood. Have you get a test that involves looking inside the colon using a flexible tube with a camera on the end (sigmoidoscopy or colonoscopy). How is this treated? This condition can usually be treated at home. Your doctor may tell you to change what you eat, make lifestyle changes, or try home treatments. If these do not help, procedures can be done to remove the hemorrhoids or make them smaller. These may involve: Placing rubber bands at the base of the hemorrhoids to cut off their blood supply. Injecting medicine into the hemorrhoids to shrink them. Shining a type of light energy onto the hemorrhoids to cause them to fall off. Doing surgery to remove the hemorrhoids or cut off their blood supply. Follow these instructions at home: Eating and drinking Eat foods that have a lot of fiber in them. These include whole grains, beans, nuts, fruits, and vegetables. Ask your doctor about taking products that have added fiber (fibersupplements). Reduce the amount of fat in your diet. You can do this by: ?Eating low-fat dairy products. ?Eating less red meat. ?Avoiding processed foods. Drink enough fluid to keep your pee (urine) pale yellow. Managing pain and swelling Take a warm-water bath (sitz bath) for 20 minutes to ease pain. Do this 3 4 times a day. You may do this in a bathtub or using a portable sitz bath that fits over the toilet. If told, put ice on the painful area. It may be helpful to use ice between your warm baths. ?Put ice in a plastic bag. ?Place a towel between your skin and the bag. ?Leave the ice on for 20 minutes, 2 3 times a day. General instructions Take qvqa-jzr-uywbxmj and prescription medicines only as told by your doctor. ?Medicated creams and medicines may be used as told. Exercise often. Ask your doctor how much and what kind of exercise is best for you. Go to the bathroom when you have the urge to poop. Do not wait. Avoid pushing too hard when you poop. Keep your butt dry and clean. Use wet toilet paper or moist towelettes after pooping. Do not sit on the toilet for a long time. Keep all follow-up visits as told by your doctor. This is important. Contact a doctor if you: Have pain and swelling that do not get better with treatment or medicine. Have trouble pooping. Cannot poop. Have pain or swelling outside the area of the hemorrhoids. Get help right away if you have: Bleeding that will not stop. Summary Hemorrhoids are swollen veins in the butt or around the opening of the butt. They can cause pain, itching, or bleeding. Eat foods that have a lot of fiber in them. These include whole grains, beans, nuts, fruits, and vegetables. Take a warm-water bath (sitz bath) for 20 minutes to ease pain. Do this 3 4 times a day. This information is not intended to replace advice given to you by your health care provider. Make sure you discuss any questions you have with your health care provider. Document Revised: 11/02/2021 Document Reviewed: 11/02/2021 [employer] Patient Education 2022 [employer]. Follow Up Care 07/11/2023 09:02:57 With:Miguel HAQUE, ABDIAS Osorio, [facility] Address: [address] [place] [address], [address] [address] [phone] When: Unknown Comments:Call for any problems. Office to call for follow up appointment. [facility] 09-10-2023 Evaluation + Plan note Extrac bre from: Title:[facility] Author:Serafin Mccabe DO Date:09/10/23 Plan Transfer/Discharge: Patient exhibiting no signs of N/V. Hydration status is adequate. Extracted from: Title:[facility] PRE Author:Monico Mccabe DO. Date:09/10/23 Plan [place] [employer] Anesthesiologists (ASA) physical status classification: Class III. Anesthetic Preoperative Plan: Anesthesia General. Future Scheduled Tests Laboratory* Vitamin D 25 Hydroxy 01/16/24 [facility]04-27-2023 Discharge summary Author Tyler quijano [facility] August 31, 2022 8:59am Note Date/Time August 31, 2022 8:5 7am [facility] [address] [place] [address] Discharge Summary Signed Patient: Ramy Martinez MR#: [id number] : 1980 Acct:[id number] Age/Sex: 42 / F Adm Date: 3 Loc: Room: [address] [place] [address]: Arleth Roach MD Copies to: MD Yaquelin Brown MD~ Providers Date of Discharge: 08/31/22 Discharging Provider: Arleth Roach Primary Care Provider: Yaquelin Perez Discharge Diagnosis (1) Anxiety: (2) ADHD: Final Diagnosis Final Discharge Diagnosis: Anxiety ADHD Summary Hospital Course Hospital course: Ms. Martinez is a 42 year old female with a past psychiatric history of anxiety and ADHD who is admitted due to worsening anxiety and potential overdose attempt.? Reports she has not slept within 1 week and took Klonopin to help her sleep.? She reports taking more than normal but was unable to remember how much.? Patient's boyfriend ended up taking her to the emergency room in the morning as she was not acting right. ? Patient reports that she does not have suicidal ideations and that she never did. Patient was personally seen by me on the day of the encounter.? I reviewed the history and performed the blanc elements of the assessment.? I formulated the planof care and confirmed this with the medical student as noted below Patient reports that despite not sleeping for 1 week she has normal energy leveland is not having difficulty concentrating.? She does report that her anxiety has worsened within the past week.? She mentions that her uncle several years ago and his date was recent. She also mentioned that her mom 5 years ago and that she recently got a Snapchat friend request from her mom and believes it is because someone has her old phone number now.? She statesthis has contributed to her anxiety.? Patient reports her depression is a 2/10 and her anxiety is a 10/10. The course of treatment: The patient was familiar with the mental health therapy services available whileon the unit and was encouraged to participate. Patient reported that she is feeling frustrated after her significant other was thinking about going back to his ex- . She denied suicidal plan or intent and indicated that she wants toget his attention back. Psychotropic medications targeting mood and anxiety were started and she was provided supportive and reality oriented therapy. She was started on Effexor to help with depression which she tolerated without side effects. She felt that her symptoms have improved on the current medication regimen, and has been compliant with treatment, and reported no side effects. I explained to her that there is room to increase her Effexor and should discusswith her outpatient psychiatrist increasing it to 75 mg p.o. daily. Her sleep and appetite were okay. She has been attending groups and described them as useful building coping skills. The patient has denied any access to firearms or lethal weapons. She reported having a supportive family and inform me that her dad and sister will come to visit her from [place]. She said her sister will stay with her a couple of days to ensure her safety and stability. She felt better than before coming to the hospital and feels hopeful regarding her future. She understands the importance of outpatient follow-up to ensure the stability of her symptoms. She denied suicidal or homicidal ideation and verbalized the intent to notify the staff if she has such thoughts. No suicidal or self-injurious behaviors occurred during inpatient treatment. She had no problems with impulse control or agitation on the unit. She was given emotional support, counseled, and educated regarding the prognosis of her diagnosis. She expresses understanding and says she is better after learning coping skills and the medications prescribed in the inpatient unit. She was in agood place to return home and engage fully in her life Patient stated that she is able to keep her positive thoughts. The patient stated that she was ready to go. She did not meet criteria for involuntary psychiatric hospitalization. Patient achieved maximum benefit from attending inpatient treatment and was suitable for outpatient follow up. I explained to the patient that her discharge from the hospital does not mean that her medicalcare ends here. She needs consistent outpatient follow-up, cognitive behavioral therapy, and treatment plan to be handled from this point on by out patient team. Discharge disposition: Home with family. Coordinated via case management. Safe discharge Planning: With the cessation of all suicidal ideation, improvements in mood, and absence of any psychotic symptoms at the time of discharge, aftercare plans were solidified. She was able to formulate a believable Safety Plan. Discharge plans were discussed with the patient and the treatment team. All agreed with the discharge plan. On the day of discharge, she was evaluated and had no complaints. She denied any SI/HI. She agreed to follow up with outpatient treatment as arranged by case management. She had no complications during her stay. Suicide risk assessment: A thorough review of risk and protective factors was conducted. Discussed with the patient the following recommendations that would help reduce suicide which includes limiting the number of medications to a 15-day supply with one refill at the time of discharge to avoid potential overdose,consistent outpatient follow up preferably within seven days of release, involving family members in her care, and her desire to live. We also discussed availability of outpatient DBT groups which can be lifesaving. She reports good therapeutic alliance, good response to medication management and therapy, availability of local mental health services and willingness to follow up, lack of suicidal ideation, intent or plan, lack of impulsivity, agitation, or psychotic behavior. Pt is future- oriented and understands the importance of outpatient follow-up. Most psychiatric experts agree that predicting suicide is not an option but considering positive factors like family and august, lack of access to firearms, and desire to continue treatment makes her current suicide risk minimal. Given the chronicity of suicidality, we discussed measures to help her with long-term safety. The patient is not suicidal or psychotic now. To help decreaseher suicide risk, as best I can, I am referring her for outpatient treatment andCBT for long-term follow-up to have somewhere to go and someone to manage her assymptoms and stressors develop. This is the best way to keep her alive. So, we discussed a crisis plan for future suicidality: at the first sign of distress, she will call the hotline; if this is not sufficient, she will 911, then call family members or friends; ultimately, she will come to the ER. Safety: The patient is not acutely psychotic and is safe to continue treatment on an outpatient basis. The patient was made aware of the 27/11 emergency services of the crisis center. She was advised to call 911 or go to the nearest ER in case of a crisis ( (including having thoughts of harming herself or others). Risks (metabolic, EPS, the effect on heart), benefits, and alternatives for medications were discussed. She verbalized understanding. Her consent was obtained. She was advised not to drink alcohol while taking medications. I advised patientthat using drugs can increase risk of impulsiveness and making poor decisions. Continue supportive therapy with some CBT techniques. Psycho-education and compliance counseling were provided. She denies current and is aware to notify her psychiatrist if she becomes due to the risk of harm to the fetus. MSE: Orientation: Alert and oriented to person, place, and time. Appearance/Behavior: Fair grooming and hygiene, calm, cooperative, engaged in the interview. Good eye contact. Normal psychomotor activity. Speech: normal rate, rhythm, volume, and tone. Non pressured. Knowledge: Appropriate for age and level of education Mood: okay Affect: reactive, mood-congruent Thought process: linear, logical, and goal-oriented Thought content: No SI/HI. No AVH. No delusions. Does not appear to be responding to internal stimuli. Concentration: Grossly intact based on track during the interview Associations: No loosening of associations Memory: Able to recall recent and remote historical information Insight: Fair, able to appreciate current symptoms and need for outpatient treatment Judgment: fair, agreed to follow treatment recommendations, socially appropriate with interviewer and staff. Time spent discussing smoking cessation with patient: more than 10 minutes Condition Condition at Discharge: Fair Status at Discharge Functional status at discharge: independent ambulation Time Spent with Patient Time spent providing/coordinating discharge services (# min): 70 Exam Physical Exam Vital Signs: Temp Pulse Resp BP Pulse Ox O2 Del Method 98.4 F 72 18 129/86 100 Room Air 08/31/22 07:30 08/31/22 07:30 08/31/22 07:30 08/31/22 07:30 08/31/22 07:30 08/31/22 07:30 Discharge Plan Discharge Plan Patient Disposition: Home Activity: No Activity Restriction Diet: Regular Additional Instructions: Regular Diet No Activity Restrictions Instructions: Depression, Adult (DC), [facility] [place] Instructions Stand Alone Forms: Work/School Release Form Prescriptions: No Action jfzmvhc-kfsh-rrbxp-oreg-capryl 100 mg-150 mg- 50 mg-150 mg Capsule 1 cap PO DAILY clonazepam [Klonopin] 1 mg tablet 1 mg PO HS Patient Comments: take 1/2 to 1 tablet by mouth at bedtime Rx Instructions: Take 1/2 to 1 tablet at HS. ferrous sulfate [FeroSul] 325 mg (65 mg iron) tablet 325 mg PO DAILY Patient Comments: take 1 tablet by mouth once daily mesalamine [Apriso] 0.375 gram capsule,extended release 24hr 0.375 g PO QAM Patient Comments: take 4 capsules by mouth every morning fexofenadine [Allergy Relief (fexofenadine)] 180 mg tablet 180 mg PO DAILY Patient Comments: take 1 tablet by mouth once daily Follow Up: [facility] [Outside] [facility] [Outside] Yaquelin Perez MD [Primary Care Provider] - Documented By: Tyler Roach MD [id number] Signed By: <Electronically signed by Tyler Roach MD> 08/31/22 0859 [facility] Work Phone: 1(602) 675-464504-26-2023 Progress note Author Tyler quijano [facility] August 30, 2022 9:05am Note Date/Time August 30, 2022 9:0 5am [facility] [address] [place] [address] Psychiatry Progress Note Signed Patient: Ramy Martinez MR#: [id number] : 1980 Acct:[id number] Age/Sex: 42 / F Adm Date: 3 Loc: Room: [address] [place] [address] Type : ADM IN Attending Dr: Arleth Roach MD Copies to: ~ Date of Service: 08/30/2022 Subjective Subjective Narrative: Ms. Martinez reports having a good visit yesterday with her significant other. She stated that she felt supported and he told her that he is always going to be there for her regardless of which capacity/relationship. She iss currently functioning at her baseline. She is doing fairly well. She reports improved mood and appetite, improved ability to enjoy certain activities, reduction of feelings of worthlessness or guilt, and improved focus and concentration. She continues to struggle with anxiety occasionally. She is tolerating her medications without difficulty. She denied current SI/HI and verbalized the intent to notify staff if she has such thoughts. She denied any suicidal or self-injurious behaviors. I did talk with her about the importance of medication compliance as she believes that medications made a gooddifference. Sleep and appetite are ok. Appearance: dressed casually Mental Status: mental status grossly normal Mood: Euthymic mood Affect: Normal affect Speech and Movement: speech and movement normal and speech clear Attitude: cooperative Thought Process: normal Thought Content: Denied hallucinations, no homicidality and no suicidality Insight: fair Judgment: fair Impulse control: fair Exam Physical Exam Vital Signs: Temp Pulse Resp BP Pulse Ox O2 Del Method 98 F 78 16 116/77 98 Room Air 08/29/22 20:08 08/29/22 20:08 08/29/22 20:08 08/29/22 20:08 08/29/22 20:08 08/29/22 20:08 Objective Labs Labs: Abnormal Labs 08/29/22 05:23 25-OH Vitamin D Total 16.0 L Assessment/Plan Assessment/Plan (1) Anxiety: Code(s): F41.9 - Anxiety disorder, unspecified Status: Acute (2) ADHD: Code(s): F90.9 - Attention-deficit hyperactivity disorder, unspecified type Status: Acute Plan -Patient reports she is feeling better today. Denied SI/HI. -Continue venlafaxine 37.5 mg daily -Risks, benefits and indications of medications were discussed with the patient. The patient verbalized understanding. -Continue to monitor mental status -Encourage participation in group activities Documented By: Tyler Roach MD [id number] Signed By: <Electronically signed by Tyler Roach MD> 08/30/22 0905 [facility] Work Phone: [phone]) 542-114804-25-2023 History and physical note Author Tyler quijano [facility] August 29, 2022 12:16pm Note Date/Time August 29, 2022 12: 17pm [facility] [address] [place] [address] Psychiatry H&P Signed Patient: Ramy Martinez MR#: [id number] : 1980 Acct:[id number] Age/Sex: 42 / F Adm Date: 3 Loc: 1S Room: 1F8457-2 Type: ADM IN Attending Dr: Arleth Roach MD Copies to: MD Yaquelin Brown MD~ Date of Service: 08/29/2022 HPI History of Present Illness History of present illness: Ms. Martinez is a 42 year old female with a past psychiatric history of anxiety and ADHD who is admitted due to worsening anxiety and potential overdose attempt. Reports she has not slept within 1 week and took Klonopin to help her sleep. She reports taking more than normal but was unable to remember how much. Patient's boyfriend ended up taking her to the emergency room in the morning as she was not acting right. Patient reports that she does not have suicidal ideations and that she never did. Patient was personally seen by me on the day of the encounter.? I reviewed the history and performed the blanc elements of the assessment.? I formulated the planof care and confirmed this with the medical student as noted below Patient reports that despite not sleeping for 1 week she has normal energy leveland is not having difficulty concentrating. She does report that her anxiety has worsened within the past week. She mentions that her uncle several years ago and his date was recent. She also mentioned that her mom 5 years ago and that she recently got a Snapchat friend request from her mom and believes it is because someone has her old phone number now. She statesthis has contributed to her anxiety. Patient reports her depression is a 2/10 and her anxiety is a 10/10. Past psych history: ADHD and anxiety Previous psych hospitalizations: Denies Past suicide attempts: Denies Past psych Meds: Reports being on multiple in the past but did not have worked for her anxiety. She reports not having taking anything in the past year Alcohol and drug use: Denies any significant use Living situation: Lives with her fianc? Employment: Works at [employer] in [place] Relationships/support system: Reports it is pretty good Appearance: Grossly normal, fair hygiene, engaged in interview, good eye contact, normal psychomotor activity Mental status: Grossly normal Mood: Dysthymic and tearful Affect: Dysphoric Speech and movement: Normal movement with clear speech. Non-pressured. Attitude: Cooperative Thought process: Normal Thought content: Denies audio/visual hallucinations. Denies homicidality or suicidality. Judgment: Limited Insight: Limited General: No acute distress HEENT: Head atraumatic, face symmetrical Cardio: Normal peripheral perfusion Respiratory: No coughing or respiratory distress Musculoskeletal: Able to move all extremities symmetrically, normal gait Neuro: Strength and sensation intact in upper and lower extremities bilaterally CN II: Visual wesley intact CN III, IV, : EOMI, no nystagmus General: Denies fatigue, fever, chills Neuro: Denies dizziness or lightheadedness. Denies numbness or tingling in extremities HEENT: Denies changes to hearing or vision Pulm: Denies dyspnea, cough, wheezing Cardio: Denies chest pain or palpitations GI: Denies abdominal pain, nausea, vomiting, diarrhea, constipation : Denies dysuria, hematuria, polyuria PMFSH Vaccinated for COVID-19?: Yes Medical History (Updated 08/29/22 @ 10:21 by Benito Dunbar) ADHD Anxiety Asthma Diabetes type 2, controlled Diet only Migraine Right upper limb pain w/ radiation to middle 3 digits right hand Sebaceous cyst Abdominal wall; excision of same Ulcerative colitis Surgical History History of colonoscopy multiple History of endometrial ablation History of repair of hiatal hernia History of tonsillectomy Hx laparoscopic cholecystectomy w/ ERCP Hx of section Hx of tubal ligation Family History (Updated 08/28/22 @ 18:13 by Adriane Avalos LPN) Mother Stomach cancer Brain cancer Lung cancer Sister DUB (dysfunctional uterine bleeding) Father Basal cell adenocarcinoma Social History Smoking Status: Never smoker Substance Use Type: Prescribed and Marijuana Substance Abuse Comment: Last used this morning Social History Comments: 3 children living in home Meds Medications and Allergies Allergies No Known Allergies Allergy (Verified 10/03/19 08:30) Home Medications clonazepam 1 mg tablet (Klonopin) 1 mg PO HS 08/28/22 [History Confirmed 08/28/22] ferrous sulfate 325 mg (65 mg iron) tablet (FeroSul) 325 mg PO DAILY 08/28/22 [History Confirmed 08/28/22] fexofenadine 180 mg tablet (Allergy Relief (fexofenadine)) 180 mg PO DAILY 08/28/22 [History Confirmed 08/28/22] mesalamine 0.375 gram capsule,extended release 24 hr (Apriso) 0.375 g PO QAM 08/28/22 [History Confirmed 08/28/22] tumeric 100 mg-hadley 150 mg-olive 50 mg-oreg 150 mg-caprylate capsule 1 cap PO DAILY 08/28/22 [History Confirmed 08/28/22] Exam Physical Exam Vital Signs: Temp Pulse Resp BP Pulse Ox O2 Del Method 98.5 F 104 H 16 130/86 97 Room Air 08/29/22 07:30 08/29/22 07:30 08/28/22 20:16 08/29/22 07:30 08/29/22 07:30 08/29/22 09:50 Assessment/Plan (1) Anxiety: Code(s): F41.9 - Anxiety disorder, unspecified Status: Acute (2) ADHD: Code(s): F90.9 - Attention-deficit hyperactivity disorder, unspecified type Status: Acute Plan -Patient presenting with decreased sleep for 1 week, worsening anxiety, and concerns for a potential overdose attempt -Start venlafaxine 37.5 mg daily -Plan to rule out major depressive disorder with mixed features -Continue to monitor mental status -Encourage participation in group activities Documented By: Tyler Roach MD 3 1004 Signed By: <Electronically signed by Tyler Roach MD> 08/29/22 [facility] Work Phone: [phone]) [phone] Evaluation note* Encounter Date Diagnosis Assessment Notes Treatment Notes Treatment Clinical Notes Aug, Inflammation of left sacroiliac joint (ICD-10 - M46.1) Aug, Lumbar radiculopathy (ICD-10 - M54.16) I have independently reviewed the plain x-ray of the lumbar spine AP and lateral which shows no instability overall normal disc height overall good alignment. The patient is about 50% better with the steroids but symptoms still persist despite taking therapeutic doses of Naprosyn daily. At this point I would recommend the patient begin a course of physical therapy I will see her back in about 7 weeks. [facility]MAN Other 03-17-2022 Evaluation + Plan note Future Scheduled Tests Laboratory* Basic Metabolic Panel 07/21/21 * Basic Metabolic Panel 06/30/21 [facility] Evaluation + Plan note Future Appointments Appointment Date:09/10/2023 12:30:00 PM Scheduled Provider: Location:[facility] Appointment Type:Surgery FT [facility] Evaluation + Plan note Future Appointments Appointment Date:09/10/2023 12:30:00 PM Scheduled Provider: Location:[facility] Appointment Type:Surgery FT Diagnostic Tests Pending * Hep Be Ag 07/11/23 * Hepatitis B Surface Antibody 07/11/23 * Hepatitis B Surface Antigen 07/11/23 * Quantiferon-TB Plus (Client Incubated) [facility] Future App[facility]ments Appointment Date:09/24/2024 08:15:00 AM Scheduled Provider:Melissa Rivera MD Location:[facility] Appointment Type:[facility] Follow Up Future Scheduled Tests Laboratory* Vitamin D 25 Hydroxy 01/16/24 [facility] evaluation noteNo assessment information available [facility] Work Phone: evaluzoyzy note* Diagnosis Onset Date Resolution Status ADHD acute Anxiety acute [facility] Work Phone: evaluation note* Diagnosis Rectal prolapse- Primary Internal hemorrhoids Internal hemorrhoids without mention of complication documented in this encounter [facility] Work Phone: Evaluation note* Diagnosis Prolapsed internal hemorrhoids- Primary Internal hemorrhoids with other complication documented in this encounter [facility] Work Phone: Evaluation note* Diagnosis Prolapsed internal hemorrhoids- Primary Internal hemorrhoids with other complication documented in this encounter [facility] Work Phone: Evaluation note* Diagnosis Well woman exam with routine gynecological exam Routine gynecological examination Breast cancer screening by mammogram [facility] N[facility] - Reported* Type Description Date Medical History asthma Medical History colitis Medical History Diabetes type 2 Medical History allergies Medical History Anxiety Medical History Depression Surgical History Procedure:Hernia repair;Disease : 2007 Surgical History tonsillectomy 1986 Surgical History cyst removal from abdomen Surgical History Procedure:Tonsillectomy;Disease : 1986 Surgical History 2008 Surgical History Procedure:colonoscop y;Disease:Abd Pain hx. of Inflammatory Bowel 08/2009 Surgical History colonoscopy 2006 Surgical History hernia repair 2006 Surgical History tubal ligation Surgical History Artificial Disc C6-7 Hospitalization History see above [facility] Other Hospital course Narrative No data available for this section [facility] Hospital Discharge instructions No data available for this section [facility] Hospital Discharge instructions Additional Instructions Regular Diet No [facility]: Progress note No data available for this section [facility] [place] for referral (narrative) Referred by: Miguel HAQUE, Melissa Talavera [facility] Rervim for referral (narrative) , Colorectal surgery at for rectal prolapsereuhmatology at for reynouds disease Referred by: Miguel HAQUE, Melissa Talavera [facility] Summary Purpose Family History No Family History Records Found Relationship Condition Age at Onset Recorded Date/T naomi Not Specified Malignant neoplasm of stomach Unknown Malignant neoplasm of brain Unknown Malignant neoplasm of lung Unknown sister Dysfunctional uterine bleeding Unknown Relationship Condition Age at Onset Recorded Date/T naomi Not Specified Malignant neoplasm of stomach Unknown Malignant neoplasm of brain Unknown Malignant neoplasm of lung Unknown sister Dysfunctional uterine bleeding Unknown father Basal cell adenocarcinoma Unknown Advance Directives No Advanced Directives Records Found Advance Directive Response Recorded Date/ Time Advance Directives No September 11, 2019 11:36am Date Activated Date Inactivated Comments 12/24/2023 12:03 PM Question Answer Comments Plan of Care: Code Status Discussion Not Compl eted Decision Maker: Provider Rationale: Patient condition does not warra nt discussion Date Activated Date Inactivated Comments 12/24/2023 12:03 PM Question Answer Comments Plan of Care: Code Status Discussion Not Compl eted Decision Maker: Provider Rationale: Patient condition does not warra nt discussion Chief Complaint and Reason for Visit Chief Complaint m46.1 m48.061 m54.12 Chief Complaint depression Reason for Visit ADHD Anxiety Reason for Referral Reason Evaluate and Treat Diagnosis 1 Lumbar radiculopathy (M54.16) Referral Organization [facility] urosurgery Referring Provider First Name Reddy Referring Provider Last Name Esdras Referring Provider Specialty Neurologica l Surgery Referred Organization [facility] Referred Address [address] [place], [place],[address] Referred Provider Specialty Physical The rapist Referral Priority Routine Specialty Diagnoses / Procedures Referred By Joni arechiga Referred To Contact Diagnoses [place] [address] [place] [address] Referral ID Status Reason Start Date Expiration Date V isits Requested Visits Authorized [id number] Pending Review 12/24/2023 12/23/2024 1 1 Additional Source Comments INFORMATION SOURCE (unrecogn ized section and content) DATE CREATED AUTHOR 10/25/2017 [facility] DATE CREATED AUTHOR AUTHOR'S ORGANIZ ATION 08/31/2022 [facility] DATE CREATED AUTHOR AUTHOR'S ORGANIZ ATION 11/22/2023 [facility] DATE CREATED AUTHOR AUTHOR'S ORGANIZ ATION 12/18/2023 [facility] DATE CREATED AUTHOR AUTHOR'S ORGANIZ ATION 12/26/2023 [facility] DATE CREATED AUTHOR AUTHOR'S ORGANIZ ATION 01/28/2024 [facility] DATE CREATED AUTHOR AUTHOR'S ORGANIZ ATION 08/11/2024 [facility] Care Teams (unrecognized sec tion and content) Team Status: Inactive Member Role Status Dates Yaquelin Perez MD Primary Care Provider Active Reddy Dewitt MD Attending Provider Active Team Status: Active Member Role Status Dates Yaquelin Perez MD Primary Care Provider Active Team Status: Inactive Member Role Status Dates Yaquelin Perez MD Primary Care Provider Active Arleth Roach MD Admit Provider, Attending Pr ovider Active Accounts Receivable Manager Relationship Specialty Start Date End Date Yaquelin Perez MD [address] [place] [address] PCP - General Family Medicine 09/28/23 Accounts Receivable Manager Relationship Specialty Start Date End Date Yaquelin Perez MD [address] [phone] PCP - General Family Medicine 09/28/23 Accounts Receivable Manager Relationship Specialty Start Date End Date Yaquelin Perez MD [address] [phone] PCP - General Family Medicine 09/28/23 Goals (unrecognized section and content) Goals may be documented in a n alternate sectionNo Information No data available for this section No data available for this section No data available for this section No data available for this section No data available for this section REASON FOR VISIT (unrecogniz ed section and content) Specialty Diagnoses / Procedures Referred By Contac t Referred To Contact Diagnoses Prolapsed internal hemorrhoids Prolapsed internal hemorrhoids [K64.8] Procedures CO HEMORRHOIDECTOMY NTRNL & XTRNL 1 COLUMN/GROUP [place]isional [place] [address] [place] [address] [facility] [address] [place] [address] Referral ID Status Reason Start Date Expiration Date Visits Re quested Visits Authorized [id number] 1 1 Reason Comments Well Women Visit Scheduled Active and Recently Administ ered Medications (unrecognized section and content) Medication Order 12/22/2023 12/23/2023 12/24/2023 ceFAZolin (Ancef) 2 g in dextrose (iso) IV 100 mL (COMPLETED) 2 g, intravenous, Administer over 30 Minutes, Once, On Sun12/24/23 at 1230, For 1 dose, Preprocedure, Administer within 60 minutes prior to incision. premix bag, Dosing of this medication varies based on severity of illness. Does this patient have sepsis or concern for sepsis (probable or documented infection plus systemic manifestations of infection)? No, Suspected Indication (Select all that apply): Surgical Prophylaxis, Indications: Surgical Prophylaxis 175 (Given - Provid er: NOREEN Hopkins)185 (Anesthesia Volume Adjustment - Provider: NOREEN Hopkins) metroNIDAZOLE (Flagyl) 500 mg in sodium chloride (iso) IV 100 mL (COMPLETED) 500 mg, intravenous, Administer over 60 Minutes, Once, On Sun12/24/23 at 1230, For 1 dose, Preprocedure, Do NOT give with alcohol or drug products with significant alcohol content., Suspected Indication (Select all that apply): Surgical Prophylaxis, Indications: Surgical Prophylaxis 180 (Given - Provid er: NOREEN Hopkins)1850 (Anesthesia Volume Adjustment - Provider: NOREEN Hopkins) Continuous Medication Order 12/22/2023 12/23/2023 12/24/2023 lactated Ringer's infusion 100 mL/hr, intravenous, Continuous, Starting on Sun12/24/23 at 1230, Preprocedure 1736 (New Bag - Prov ider: NOREEN Hopkins)1850 (Stopped - Provider: NOREEN Hopkins) lactated Ringer's infusion 100 mL/hr, intravenous, Continuous, Starting on Sun12/24/23 at 1930, Recovery (only) 1930 (Due) PRN Medication Order 12/22/2023 12/23/2023 12/24/2023 albuterol 2.5 mg /3 mL (0.083 %) nebulizer solution 2.5 mg 2.5 mg, nebulization, Every 20 min PRN, wheezing, Starting on Sun12/24/23 at 1900, For 3 doses, Recovery (only) BUPivacaine-EPINEPHrine (Marcaine w/EPI) 0.5 %-1:200,000 injection (CANCELED) As needed, Starting on Sun12/24/23 at 1839, Intraprocedure 1839 (Given - Provid er: Denisse Chiang MD) diphenhydrAMINE (BENADryl) injection 12.5 mg 12.5 mg, intravenous, Once as needed, itching, allergic reaction, Starting on Sun12/24/23 at 1900, For 1 dose, Recovery (only) hydrALAZINE (Apresoline) injection 5 mg 5 mg, intravenous, Administer over 2 Minutes, Every 30 min PRN, systolic blood pressure greater than 180 mmHg and heart rate less than 60 BPM, Starting on Sun12/24/23 at 1900, For 3 doses, Recovery (only) HYDROcodone-acetaminophen ([place]) 5-325 mg per tablet 1 tablet 1 tablet, oral, Every 4 hours PRN, pain moderate (4-6), second line, Starting on Sun12/24/23 at 1900, Recovery (only), When able to take oral medications., If ordered PRN for pain, nurse is permitted to administer this medication for higher pain scores based on patient preference? Yes 2027 (Given - Provid er: Nirmala Lin RN) HYDROmorphone (Dilaudid) injection 0.5 mg 0.5 mg, intravenous, Every 5 min PRN, pain moderate (4-6), first line, Starting on Sun12/24/23 at 1900, Recovery (only), Max total of 4 mg regardless of dose. 1903 (Given - Provid er: Nirmala Lin RN)1914 (Given - Provider: Nirmala Lin RN)1934 (Given - Provider: Nirmala Lin RN) HYDROmorphone (Dilaudid) injection 1 mg 1 mg, intravenous, Every 5 min PRN, pain severe (7-10), first line, Starting on Sun12/24/23 at 1900, Recovery (only), Max total of 4 mg regardless of dose. labetaloL (Normodyne,Trandate) injection 5 mg 5 mg, intravenous, Administer over 1 Minutes, Every 20 min PRN, systolic blood pressure greater than 180 mmHg, dystolic blood pressure greater than 100 mmHg and heart rate greater than 60 BPM, Starting on Sun12/24/23 at 1900, For 4 doses, Recovery (only) metoclopramide (Reglan) injection 10 mg (COMPLETED) 10 mg, intravenous, Once as needed, nausea/vomiting, first line, Starting on Sun12/24/23 at 1900, For 1 dose, Recovery (only) 1922 (Given - Provid er: Nirmala Lin RN) midazolam (Versed) injection 1 mg 1 mg, intravenous, Once as needed, anxiety, Starting on Sun12/24/23 at 1900, For 1 dose, Recovery (only) oxygen (O2) therapy inhalation, Continuous PRN - O2/gases, other, Starting on Sun12/24/23 at 1900, Recovery (only), Device: Nasal Cannula, Rate in liters per minute: 4 LPM, Keep O2 Sat Above: 92% 1849 (Start - Provid er: Nirmala Lin RN)1903 (Stopped - Provider: Nirmala Lin RN)1944 (Start - Provider: Nirmala Lin RN)1999 (Stopped - Provider: Nirmala Lin RN) promethazine (Phenergan) 6.25 mg in sodium chloride 0.9% 50 mL IV 6.25 mg, intravenous, Administer over 15 Minutes, Once as needed, Nausea/vomiting, second line, Starting on Sun12/24/23 at 1900, For 1 dose, Recovery (only) racepinephrine (Asthmanefrin) 2.25 % nebulizer solution 0.5 mL 0.5 mL, nebulization, Every 4 hours PRN, wheezing, shortness of breath, stridor, Starting on Sun12/24/23 at 1900, Recovery (only), Dilute in 3 mL NS FOR RECORDS PERTAINING TO PATIENTS WHO ARE OR HAVE BEEN ENROLLED IN A CHEMICAL DEPENDENCY/SUBSTANCEABUSE PROGRAM, SOME INFORMATION MAY BE OMITTED. This clinical summary was aggregated from multiple sources. Caution should be exercised in using it in the provision of clinical care. This summary normalizes information from multiple sources, and as a consequence, information in this document may materially change the coding, format and clinical context of patient data. In addition, data may be omitted in some cases. CLINICAL DECISIONS SHOULD BE BASED ON THE PRIMARY CLINICAL RECORDS. [employer] provides no warranty or guarantee of the accuracy or completeness of information in this document.
--- NOTE | 2024-08-25 07:28 | ECG_ITS ---
[facility] Test Date: 2024-08-25 Pat Name: RAMY MARTINEZ Department: Room: [facility] Gender: Female Manager Of Drilling: : 1980 Requested By: [id number] Order Number: [id number] Michel MD: YOLANDE NGUYEN M.D. Measurements Intervals [place] Rate: 108 P: 73 TN: 162 QRS: 91 QRSD: 90 T: 56 QT: 328 QTc: 391 Interpretive Statements 1120 Sinus tachycardia 7102 Moderate right axis deviation 9140 abnormal rhythm ECG Compared to ECG 08/28/2022 09:27:04 Right-axis deviation now present ST (T wave) deviation no longer present T-wave abnormality no longer present Possible ischemia no longer present Electronically Signed On 08-25-2024 21:43:07 EDT by YOLANDE NGUYEN M.D.
--- NOTE | 2024-08-25 07:29 | ED_ITS ---
HPI HPI - General Adult General Chief complaint: Shortness of Breath/Dyspnea Stated complaint: SOB TROUBLE BREATHING Time Seen by Provider: 08/25/24 07:18 Source: patient Mode of arrival: walk-in History of Present Illness HPI narrative: 44-year-old female presents to the emergency department for chief complaint of difficulty breathing. The patient states that her difficulty breathing started in February, 6 months ago. She states has gotten a lot worse since last night and she is coughing up some brown phlegm now. She used her inhaler at home but it did not help much. She has not had a fever or hemoptysis. Related Data Home Medications ?Medication ?Instructions ?Recorded ?Confirmed mesalamine 0.375 gram 0.375 g PO DAILY 06/12/23 08/25/24 capsule,extended release 24 hr phentermine 37.5 mg capsule 37.5 mg PO DAILY 06/12/23 06/12/23 (Adipex-P) trazodone 50 mg tablet 50 mg PO DAILY 06/12/23 08/25/24 venlafaxine 75 mg capsule,extended 75 mg PO DAILY 06/12/23 08/25/24 release 24 hr albuterol sulfate 2.5 mg/3 mL 2.5 mg inhalation Q6H PRN 08/25/24 08/25/24 (0.083 %) solution for nebulization shortness of breath or wheezing albuterol sulfate 90 mcg/actuation 2 puff inhalation Q4H PRN 08/25/24 08/25/24 aerosol inhaler shortness of breath or wheezing lamotrigine 25 mg tablet 25 mg PO Q12H 08/25/24 08/25/24 pantoprazole 40 mg tablet,delayed 40 mg PO DAILY 08/25/24 08/25/24 release Allergies Allergy/AdvReac Type Severity Reaction Status Date / Time No Known Drug Allergies Allergy Verified 08/25/24 07:20 Opioid HPI Opioid Management Most Recent Opioid Data: No Data to Display Review of Systems ROS Narrative A ten point review of systems is negative except as noted above. [facility] Medical History (Updated 08/25/24 @ 08:16 by Margarito Santamaria MD) GERD (gastroesophageal reflux disease) ?K21.9 - Gastro-esophageal reflux disease without esophagitis (ICD-10) Ulcerative colitis ?K51.90 - Ulcerative colitis, unspecified, without complications (ICD-10) Diabetes ?E11.9 - Type 2 diabetes mellitus without complications (ICD-10) Asthma ?J45.909 - Unspecified asthma, uncomplicated (ICD-10) Social History Smoking status: Never smoker Little interest or pleasure in doing things: not at all Feeling down, depressed, or hopeless: not at all Exam Narrative Exam Narrative: Nurses note and vital signs reviewed and patient is not hypoxic. General: The patient appears somewhat dyspneic. She is coughing frequently. Skin: Warm, dry, no pallor noted. There is no rash noted. Head: Normocephalic, atraumatic Eye: Normal conjunctiva, no drainage Ears, Nose, Mouth, and Throat: oral mucosa is moist. Nares patent. Cardiovascular: Regular Rate and Rhythm, tachycardic Respiratory: Bilateral rhonchi throughout Back: non-tender GI: Soft and nontender Musculoskeletal: The patient has no evidence of calf tenderness, no pitting edema, symmetrical pulses noted bilaterally Neurological: A&O, normal speech Psychiatric: Cooperative Constitutional Vital Signs, click to edit/add: Last Vital Signs Temp 98.5 F 08/25/24 07:20 Pulse 103 H 08/25/24 08:01 Resp 20 08/25/24 08:01 BP 111/77 08/25/24 08:01 Pulse Ox 96 08/25/24 08:01 O2 Del Method Room Air 08/25/24 07:50 Course Vital Signs Vital signs: Vital Signs Temperature 98.5 F 08/25/24 07:20 Pulse Rate 98 H 08/25/24 07:20 Respiratory Rate 20 08/25/24 07:20 Blood Pressure 125/84 08/25/24 07:20 Temperature 98.5 F 08/25/24 07:20 Pulse Rate 103 H 08/25/24 08:01 Respiratory Rate 20 08/25/24 08:01 Blood Pressure 111/77 08/25/24 08:01 Pulse Oximetry 96 08/25/24 08:01 Oxygen Delivery Method Room Air 08/25/24 07:50 Medical Decision Making MDM Narrative Medical decision making narrative: The patient presents with asthma exacerbation. She is coughing up some brown phlegm but there is no evidence of pneumonia. COVID and influenza test are negative as well. She was given IV steroid and multiple aerosol treatments and is being admitted for observation. Treatment diagnosis and disposition were discussed with the patient. Differential Diagnosis Differential Diagnosis: Pneumonia, asthma exacerbation, COVID, influenza, viral illness Lab Data Lab results reviewed: Yes I reviewed the patient's lab results Labs: Lab Results 08/25/24 08/25/24 Range/Units 07:30 07:35 WBC 7.7 (4.0-11.0) 10^3/uL RBC 4.75 (4.20-5.40) 10^6/uL Hgb 14.2 (12.0-16.0) g/dL Hct 41.7 (36.0-48.0) % MCV 87.8 (81.0-99.0) fL MCH 29.9 (26.7-34.0) pg MCHC 34.1 (29.9-35.2) g/dL RDW 12.7 (11.0-15.0) % Plt Count 368 (150-450) 10^3/uL MPV 10.1 (9.5-13.5) fL Neut % (Auto) 45.0 (43.0-75.0) % Lymph % (Auto) 24.4 (20.5-60.0) % Dickson % (Auto) 5.9 (1.7-12.0) % Eos % (Auto) 23.4 H (0.9-7.0) % Baso % (Auto) 1.2 (0.2-2.0) % Neut # (Auto) 3.5 (1.4-6.5) 10^3/uL Lymph # (Auto) 1.9 (1.2-3.8) 10^3/uL Dickson # (Auto) 0.5 (0.3-0.8) 10^3/uL Eos # (Auto) 1.8 H (0.0-0.7) 10^3/uL Baso # (Auto) 0.1 (0.0-0.1) 10^3/uL Abs Immat Gran (auto) 0.01 (0.00-0.03) 10^3/uL Imm/Tot Granulo (auto) 0.1 (0.0-0.5) % Sodium 143 (136-145) mmol/L Potassium 3.6 (3.5-5.1) mmol/L Chloride 105 (98-107) mmol/L Carbon Dioxide 30.0 (21.0-32.0) mmol/L Anion Gap 11.6 BUN 14.0 (7.0-18.0) mg/dL Creatinine 0.83 (0.55-1.02) mg/dL Est GFR ( Amer) >60 (>=60 mL/min/1.73m^2) Est GFR (Non-Af Amer) >60 (>=60 mL/min/1.73m^2) BUN/Creatinine Ratio 16.9 Glucose 127 H (74-106) mg/dL Calcium 9.3 (8.5-10.1) mg/dL Influenza Type A Ag Negative Influenza Type B Ag Negative SARS-CoV-2 Ag (CV2AG) Negative (NEGATIVE) Imaging Data Chest x-ray: Radiologist's impression: No acute cardiopulmonary process ECG Data Attestation: I personally reviewed and interpreted this ECG as follows: (EKG on my interpretation shows sinus rhythm with a rate of 108) Critical Care Time Critical Care Time Critical Care Time: Yes Total Critical Care Time: 35 Attestation: Due to the high probability of sudden and clinically significant deterioration in the patient's condition he/she required the highest level of my preparedness to intervene urgently I provided critical care time including documentation time, medication orders and management, reevaluation, vital sign assessment, ordering and reviewing of lab tests, ordering and reviewing of x-ray studies, and admission orders. Aggregate critical care time is 35 minutes including only time during which I was engaged in work directly related to his/her care and did not include time spent treating other patients simultaneously. Discharge Plan Discharge Chief Complaint: Shortness of Breath/Dyspnea Clinical Impression: Asthma with acute exacerbation Patient Disposition: Admitted as Observation Time of Disposition Decision: 08:16 Condition: Fair
[2024-08-25] MEDS: METHYLPREDNISOLONE SOD SUCC PF 125 MG/2 ML VIAL IVP (07:33)
[2024-08-25 07:46] LABS: Basophils Absolute Auto 0.1 10^3/uL (0.0-0.1); Basophils Percent Auto 1.2 % (0.2-2.0); Eosinophils Absolute Auto 1.8 10^3/uL (0.0-0.7); Eosinophils Percent Auto 23.4 % (0.9-7.0); Hematocrit 41.7 % (36.0-48.0); Hemoglobin 14.2 g/dL (12.0-16.0); Immature Granulocytes Abs Auto 0.01 10^3/uL (0.00-0.03); Immature Granulocytes Pct Auto 0.1 % (0.0-0.5); Lymphocytes Absolute Auto 1.9 10^3/uL (1.2-3.8); Lymphocytes Percent Auto 24.4 % (20.5-60.0); Mean Corpuscular HGB Conc 34.1 g/dL (29.9-35.2); Mean Corpuscular Hemoglobin 29.9 pg (26.7-34.0); Mean Corpuscular Volume 87.8 fL (81.0-99.0); Mean Platelet Volume 10.1 fL (9.5-13.5); Monocytes Absolute Auto 0.5 10^3/uL (0.3-0.8); Monocytes Percent Auto 5.9 % (1.7-12.0); Neutrophils Absolute Auto 3.5 10^3/uL (1.4-6.5); Platelet Count 368 10^3/uL (150-450); Red Blood Count 4.75 10^6/uL (4.20-5.40); Red Cell Distribution Width 12.7 % (11.0-15.0); White Blood Count 7.7 10^3/uL (4.0-11.0)
[2024-08-25] MEDS: ALBUTEROL SULFATE 2.5 MG/3 ML VIAL NEB IH ×2 (07:49→08:09)
[2024-08-25 07:55] LABS: Anion Gap 11.6; BUN Creatinine Ratio 16.9; Calcium 9.3 mg/dL (8.5-10.1); Chloride 105 mmol/L (98-107); Estimated GFR (African America >60 (>=60 mL/min/1.73m^2); Estimated GFR (Non-African Ame >60 (>=60 mL/min/1.73m^2); Glucose 127 mg/dL (74-106); Potassium 3.6 mmol/L (3.5-5.1); Sodium 143 mmol/L (136-145)
[2024-08-25 07:58] LABS: Influenza Virus A Antigen Negative; Influenza Virus B Antigen Negative; Internal Control Within Normal Limits; SARS-CoV-2 Ag NEGATIVE (NEGATIVE)
--- NOTE | 2024-08-25 08:16 | PC.NURSE ---
Pulse Ox. innacurate. Unable to delete data.
--- NOTE | 2024-08-25 08:40 | PC.NURSE ---
Awaiting lab to draw blood cultures before starting antibiotics. Will report in nurse hand off report to floor.
[2024-08-25] MEDS: CEFTRIAXONE 1,000 MG in 0.9 % SODIUM CHLORIDE 50 ML 100 MG IV (09:00)
--- NOTE | 2024-08-25 09:05 | RESP.RT ---
RT busy in , nurse gave HHN tx
[2024-08-25] MEDS: AZITHROMYCIN 500 MG in 0.9 % SODIUM CHLORIDE 250 ML 250 MG IV (09:55)
[2024-08-25 10:48] LABS: Internal Control Within Normal Limits; Respiratory Syncytial Virus Not Detected (NOT DETECTE)
[2024-08-25] MEDS: BENZONATATE 100 MG CAPSULE 200 MG PO ×2 (10:55→17:32)
[2024-08-25] MEDS: PANTOPRAZOLE SODIUM 40 MG TABLET.DR PO (10:55)
[2024-08-25] MEDS: IPRATROPIUM/ALBUTEROL SULFATE 3 ML AMPUL.NEB IH ×3 (11:05→22:43)
--- NOTE | 2024-08-25 12:39 | P.HP_ITS ---
HPI H&P: HPI History of Present Illness Chief complaint: SOB TROUBLE BREATHING,ASTHMA EXACERBATION Narrative: Patient with a 2 to 3-day history of increasing cough and shortness of breath has been using her inhaler frequently at home without success, presented to the emergency room, found to have acute exacerbation of asthma, she does have a cough productive of brownish sputum When I saw patient up in the medical surgical floor, resting comfortably in bed, does have a cough during the evaluation Opioid HPI Opioid Management Most Recent Pain and Opioid Data: Last Pain Assessment 08/25/24 12:00 Last ORT Total Score 4 08/25/24 09:07 08/25/24 Last ORT Risk Category Moderate Risk 08/25/24 09:07 08/25/24 Review of Systems ROS Status of ROS 10 or more systems reviewed and unremark able except as noted in history and below PFSH PFSH Medical History (Updated 08/25/24 @ 08:16 by Margarito Santamaria MD) GERD (gastroesophageal reflux disease) ?K21.9 - Gastro-esophageal reflux disease without esophagitis (ICD-10) Ulcerative colitis ?K51.90 - Ulcerative colitis, unspecified, without complications (ICD-10) Diabetes ?E11.9 - Type 2 diabetes mellitus without complications (ICD-10) Asthma ?J45.909 - Unspecified asthma, uncomplicated (ICD-10) Family History (Updated 08/25/24 @ 09:19 by Romana Moody) Grandmother Family history of CHF (congestive heart failure) Mother Family history of COPD (chronic obstructive pulmonary disease) Family history of cancer Social History (Updated 08/25/24 @ 09:21 by Romana Moody) Within the past year, how often did you have a drink containing alcohol: never Score interpretation: A score less than 3 is consistent with normal alcohol consumption. Smoking status: Never smoker Non-prescribed substance use: denies use Highest level of school completed/degree received: high school graduate Are you now , , , , never or living with a partner: In a typical week, how many times do you talk on the telephone with family, friends, or neighbors: 3 or more times per week How often do you get together with friends or relatives: 3 or more times per week How often do you attend advent or christian services: 4 or more times per year Do you belong to any clubs or organizations such as advent groups unions, fraternal or athletic groups, or school groups: yes Total score: 3 Score interpretation: A score of greater than or equal to 2 indicates the lowest level of social isolation. Little interest or pleasure in doing things: not at all Feeling down, depressed, or hopeless: not at all Feel stressed/tense/nervous/anxious/difficulty sleeping: not at all Meds Home Medications and Allergies Home Medications ?Medication ?Instructions ?Recorded ?Confirmed ?Type mesalamine 0.375 gram 1.5 g PO DAILY 06/12/23 08/25/24 History capsule,extended release 24 hr trazodone 50 mg tablet 100 mg PO .qhs 06/12/23 08/25/24 History venlafaxine 75 mg capsule,extended 75 mg PO DAILY 06/12/23 08/25/24 History release 24 hr albuterol sulfate 2.5 mg/3 mL 2.5 mg inhalation Q6H PRN 08/25/24 08/25/24 History (0.083 %) solution for nebulization shortness of breath or wheezing albuterol sulfate 90 mcg/actuation 2 puff inhalation Q4H PRN 08/25/24 08/25/24 History aerosol inhaler shortness of breath or wheezing lamotrigine 25 mg tablet 50 mg PO DAILY 08/25/24 08/25/24 History pantoprazole 40 mg tablet,delayed 40 mg PO DAILY 08/25/24 08/25/24 History release phentermine 37.5 mg tablet 37.5 mg PO DAILY 08/25/24 08/25/24 History Allergies Allergy/AdvReac Type Severity Reaction Status Date / Time No Known Drug Allergies Allergy Verified 08/25/24 07:20 Exam Constitutional Vital Signs, click to edit/add: Last Vital Signs Temp 97.7 F 08/25/24 12:00 Pulse 100 H 08/25/24 12:00 Resp 20 08/25/24 12:00 BP 113/74 08/25/24 12:00 Pulse Ox 98 08/25/24 12:00 O2 Del Method Room Air 08/25/24 12:00 Documenting provider has reviewed patient's vital signs: yes Common normals: no apparent distress Respiratory Common normals: no retractions; abnormal respiratory effort (Cough throughout the evaluation) Auscultation: rhonchi and wheezes Cardio Common normals: regular rate and regular rhythm GI Common normals: Normal to inspection, nondistended, normoactive bowel sounds present Results Labs Labs: Short CBC 08/25/24 Range/Units 07:35 WBC 7.7 (4.0-11.0) 10^3/uL Hgb 14.2 (12.0-16.0) g/dL Hct 41.7 (36.0-48.0) % Plt Count 368 (150-450) 10^3/uL BMP 08/25/24 07:35 Sodium 143 Potassium 3.6 Chloride 105 Carbon Dioxide 30.0 BUN 14.0 Creatinine 0.83 Glucose 127 H Calcium 9.3 Assessment and Plan Assessment and Plan (1) Asthma with acute exacerbation: (2) GERD (gastroesophageal reflux disease): (3) Ulcerative colitis: Plan Admission findings: No hypoxia and acute respiratory distress and sinus tachycardia secondary to acute exacerbation of asthma Acute exacerbation of asthma-IV steroids, frequent aerosol treatments, p.o. antibiotics, try to obtain sputum culture, reevaluate in a.m. Admission status: Patient placed in observation, more than likely discharge within 1 midnight, medically necessary treatment only spanning 1 midnight will leave patient as observation, if treatment changes and requires prolonged stay in medically necessary treatment will span 2 midnights will change to inpatient status
[2024-08-25] MEDS: DIPHENHYDRAMINE HCL 50 MG/ML VIAL 25 MG IVP (13:10)
[2024-08-25] MEDS: METHYLPREDNISOLONE SOD SUCC PF 125 MG/2 ML VIAL 60 MG IVP ×2 (13:10→19:23)
[2024-08-25] MEDS: ACETAMINOPHEN 500 MG TABLET 1000 MG PO (14:35)
[2024-08-25] MEDS: TRAZODONE HCL 50 MG TABLET 100 MG PO (21:05)
[2024-08-25] MEDS: GUAIFENESIN 200 MG/DEXTROMETHORPHAN 20 MG 10 ML UNIT DOSE CUP PO (21:56)
[2024-08-25] MEDS: KETOROLAC TROMETHAMINE 30 MG/ML VIAL 15 MG IVP (21:56)
[2024-08-26 03:01] LABS: A. calcoaceticus-baumannii Cpx NOT DETECTED (NOT DETECTE); Bacteroides fragilis NOT DETECTED (NOT DETECTE); Candida albicans NOT DETECTED (NOT DETECTE); Candida auris NOT DETECTED (NOT DETECTE); Candida glabrata NOT DETECTED (NOT DETECTE); Candida krusei NOT DETECTED (NOT DETECTE); Candida parapsilosis NOT DETECTED (NOT DETECTE); Candida tropicalis NOT DETECTED (NOT DETECTE); Cryptococcus neoformans/gattii NOT DETECTED (NOT DETECTE); Enterobacter cloacae complex NOT DETECTED (NOT DETECTE); Enterobacterales NOT DETECTED (NOT DETECTE); Enterococcus faecalis NOT DETECTED (NOT DETECTE); Enterococcus faecium NOT DETECTED (NOT DETECTE); Haemophilus influenzae NOT DETECTED (NOT DETECTE); Klebsiella aerogenes NOT DETECTED (NOT DETECTE); Klebsiella pneumoniae group NOT DETECTED (NOT DETECTE); Listeria monocytogenes NOT DETECTED (NOT DETECTE); Neisseria meningitidis NOT DETECTED (NOT DETECTE); Proteus spp. NOT DETECTED (NOT DETECTE); Pseudomonas aeruginosa NOT DETECTED (NOT DETECTE); Salmonella spp. NOT DETECTED (NOT DETECTE); Serratia marcescens NOT DETECTED (NOT DETECTE); Staphylococcus lugdunensis NOT DETECTED (NOT DETECTE); Stenotrophomonas maltophilia NOT DETECTED (NOT DETECTE); Streptococcus agalactiae NOT DETECTED (NOT DETECTE); Streptococcus pneumoniae NOT DETECTED (NOT DETECTE); Streptococcus pyogenes NOT DETECTED (NOT DETECTE); Streptococcus spp. NOT DETECTED (NOT DETECTE)
[2024-08-26] MEDS: KETOROLAC TROMETHAMINE 30 MG/ML VIAL 15 MG IVP ×2 (03:02→08:20)
[2024-08-26] MEDS: METHYLPREDNISOLONE SOD SUCC PF 125 MG/2 ML VIAL 60 MG IVP ×2 (03:02→08:19)
[2024-08-26 03:08] VITALS: BP 116/67; PULSE 98; TEMP 36.5; O2SAT 92
[2024-08-26 04:20] LABS: Source BLOOD
[2024-08-26 04:34] LABS: Staphylococcus epidermidis DETECTED (NOT DETECTE); Staphylococcus spp. DETECTED (NOT DETECTE); mecA/C DETECTED (NOT DETECTE)
[2024-08-26 05:26] VITALS: PULSE 95; O2SAT 93
[2024-08-26] MEDS: IPRATROPIUM/ALBUTEROL SULFATE 3 ML AMPUL.NEB IH (05:27)
--- NOTE | 2024-08-26 07:41 | CM.NOTE ---
Rounds made with Dr. Martell, pt will discharge to home today. Pt will need to f/u with PCP.
[2024-08-26 07:59] VITALS: BP 137/88; PULSE 108; TEMP 36.5; O2SAT 97
[2024-08-26] MEDS: AZITHROMYCIN 250 MG TABLET 500 MG PO (08:19)
[2024-08-26] MEDS: VENLAFAXINE HCL ER 75 MG CAPSULE PO (08:19)
[2024-08-26] MEDS: [UNRECOGNIZED DRUG - REMARK] 1.5 EACH PO (08:19)
[2024-08-26] MEDS: LAMOTRIGINE 25 MG TABLET 50 MG PO (08:19)
--- NOTE | 2024-08-26 08:27 | P.DS_ITS ---
DS: Providers Provider Date of admission: 08/25/24 09:01 Primary care physician: Bipin Martell MD DS: Diagnosis Discharge Diagnosis (1) Asthma with acute exacerbation: (2) GERD (gastroesophageal reflux disease): (3) Ulcerative colitis: Plan Admission findings: No hypoxia and acute respiratory distress and sinus tachycardia secondary to acute exacerbation of asthma Acute exacerbation of asthma due to Right lower lobe pneumonia-improving at DC Admission status: Patient placed in observation, more than likely discharge within 1 midnight, medically necessary treatment only spanning 1 midnight will leave patient as observation, if treatment changes and requires prolonged stay in medically necessary treatment will span 2 midnights will change to inpatient status ? DS: Summary Hospital Course Hospital Course: Patient seen in the emergency room with failed outpatient treatment of an acute exacerbation of asthma, her white blood cell count was normal but CT scan consistent with right lower lobe pneumonia as a cause for the acute exacerbation of her asthma. She does feel improved today she did not require any supplemental oxygen her labs were normal on admission not repeated today, blood culture pending with likely contaminant, with no hypoxia patient ambulating without hypoxia she will be discharged to home in improving condition. Medications see list. See me in the office later this week. Time Spent with Patient Time attestation: Total time spent providing and/or coordinating discharge services: Exam Constitutional Vital Signs, click to edit/add: Last Vital Signs Temp 97.7 F 08/26/24 07:59 Pulse 108 H 08/26/24 07:59 Resp 16 08/26/24 07:59 BP 137/88 08/26/24 07:59 Pulse Ox 97 08/26/24 07:59 O2 Del Method Room Air 08/26/24 07:59 Documenting provider has reviewed patient's vital signs: yes Common normals: no apparent distress Chest Common normals: inspection of chest normal Respiratory Common normals: normal respiratory effort and no retractions Auscultation: rhonchi (Much improved) and wheezes (Much improved) Cardio Common normals: regular rate and regular rhythm DS: Data Data Completed and Pending Labs on day of discharge: Labs from last 24 hours 08/25/24 08/25/24 10:34 08:50 Specimen Source Blood A.calcoaceticus-baumannii cmplx PCR Not detected Bacteroides fragilis Not detected Amara albicans (PCR) Not detected Amara auris (PCR) Not detected C. glabrata (PCR) Not detected C. krusei (PCR) Not detected C. parapsilosis (PCR) Not detected C. tropicalis (PCR) Not detected C. neoform/gattii (PCR) Not detected Enterobacterales (PCR) Not detected E. cloacae complex PCR Not detected Enterococc faecalis PCR Not detected Enterococc faecium PCR Not detected E. coli (PCR) Not detected H. influenzae (PCR) Not detected Klebsiella aerogenes (PCR) Not detected Klebsiella oxytoca PCR Not detected K. pneumoniae group (PCR) Not detected List. monocytogenes PCR Not detected N. meningitidis (PCR) Not detected Proteus spp. (copies/mL) Not detected RSV Antigen Not detected Salmonella spp. (PCR) Not detected Serratia marcescens PCR Not detected Staphylococcus sp PCR Detected A* Staph aureus (PCR) Not detected mecA/C & MREJ Resist Gene Not applicable mecA/C-Methicil Resis Gene Detected A* mcr-1 Colistin Res Gene PCR Not applicable Staph epidermidis (PCR) Detected A* Staph lugdunensis (TEM-PCR) Not detected S. maltophilia (PCR) Not detected Streptococcus sp PCR Not detected Strep agalactiae (PCR) Not detected Strep pneumoniae (PCR) Not detected S. pyogenes (PCR) Not detected P. aeruginosa (PCR) Not detected Thalia/B-Vanco Res Genes Not applicable blaIMP Car res Gene PCR Not applicable KPC (blaKPC) Detect PCR Not applicable NDM (blaNDM) Detect PCR Not applicable OXA-48 Carbapenem Resis Gene (PCR) Not applicable blaVIM Car Res Gene PCR Not applicable CTX-M ESBL (PCR) Not applicable Discharge Plan Discharge Disposition: Home, Self-Care Condition: Fair Discharge Medications: New fluticasone furoate-vilanterol [Breo Ellipta] 100-25 mcg/dose blister with device 1 inh inhalation DAILY Qty: 1 11RF prednisone 10 mg tablet 40 mg PO DAILY Qty: 32 0RF Rx Instructions: 4/day for 3 days, 3/day for 3 days, 2/day for 3 days, 1/day for 3 days, 1/2 /day for 4 days azithromycin 500 mg tablet 500 mg PO DAILY 2 Days Qty: 2 0RF Rx Instructions: start on day 2 of therapy Continued trazodone 50 mg tablet 100 mg PO .qhs venlafaxine 75 mg capsule,extended release 24hr 75 mg PO DAILY mesalamine 0.375 gram capsule,extended release 24hr 1.5 g PO DAILY albuterol sulfate 2.5 mg /3 mL (0.083 %) solution for nebulization 2.5 mg inhalation Q6H PRN (Reason: shortness of breath or wheezing) albuterol sulfate 90 mcg/actuation HFA aerosol inhaler 2 puff INHALATION Q4H PRN (Reason: shortness of breath or wheezing) lamotrigine 25 mg tablet 50 mg PO DAILY pantoprazole 40 mg tablet,delayed release (DR/EC) 40 mg PO DAILY phentermine 37.5 mg tablet 37.5 mg PO DAILY Print Language: Namibian Forms: Portal Instructions Follow Up Appointments: September 02 @ 9:45am with Dr. Martell [phone]
--- NOTE | 2024-08-26 10:29 | CM.NOTE ---
Patient is up krish in room, no discharge needs identified for pt at discharge.
[2024-08-26 10:42] VITALS: BP 146/88; PULSE 96; TEMP 36.7; O2SAT 100
[2024-08-26 10:51] VITALS: O2SAT 95
--- NOTE | 2024-08-27 13:02 | CM.DCFOLLOWU ---
Person spoke with:patient How are you feeling? she was feeling fine until she woke up, patient was coughing, felt short of breath. She is going to do breathing treatment to see if that helps How is your pain? just shortness of breath Did you understand your discharge instructions?yes Do you have any questions about your discharge instructions?no Were you given any prescriptions at discharge?yes Were you able to get your prescriptions filled?yes Do you understand how to take your medications as ordered?yes Do you have any questions about your follow up appointment and do you plan to keep your follow up appointment? no questions, moved follow up with PCP to Sunday Is there anything else that you would like to discuss?no Questions/Comments/Concerns/Other:none
== END 2024-08-26 10:54 | disposition home or self-care (01) ==
LOC: ER 08:16 → MS 09:07
PROVIDERS: Admitting Provider Family Medicine; Emergency Provider Emergency Medicine; PCP Family Medicine; Visit Provider Family Medicine
DX: J45.901 Unspecified asthma with (acute) exacerbation (principal); J18.9 Pneumonia, unspecified organism; K21.9 Gastro-esophageal reflux disease without esophagitis; K51.90 Ulcerative colitis, unspecified, without complications; R06.02 Shortness of breath
CPT/HCPCS: 36415; 71045; 71275; 80048; 85025; 87040; 87070; 87150; 87186; 87205; 87420; 87804; 87811; 93005; 94640; 94667; 94668; 94761; 96365; 96367; 96375; 96376; 99285; G0378; J0456; J0696; J1200; J1885; J2919; Q9967

== ENCOUNTER 2024-08-27 09:21 | Outpatient (REF) | payer BC, SELFPAY | END 2024-08-27 09:22 | disposition home or self-care (01) | LOC: LAB 09:21 | PROVIDERS: PCP Family Medicine; Visit Provider Family Medicine | DX: J21.9 Acute bronchiolitis, unspecified (principal) | CPT/HCPCS: 87070; 87205 ==

== ENCOUNTER 2024-09-25 12:50 | Outpatient (OUT) | payer BC, SELFPAY ==
--- OUTSIDE RECORDS SUMMARY | 2024-09-24 08:10 | XMS_ITS ---
Author Name Auto Generated Organization OHIP Care Team Providers Care Database Reporting Consultant Name Role Phone DENISSE CHIANG Attending Unavailable YAQUELIN MARTELL Primary Care Unavailable MUHAZEL, JOSEPH H Attending Unavailable YAQUELIN MARTELL Primary Care Unavailable DENISSE CHIANG Attending Unavailable YAQUELIN MARTELL Primary Care Unavailable DENISSE CHIANG Attending Unavailable YAQUELIN MARTELL Primary Care Unavailable MUHAZEL, JOSEPH H Referring Unavailable YAQUELIN MARTELL Primary Care Unavailable MUOH, JOSEPH H Referring Unavailable YAQUELIN MARTELL DENISSE Primary Care Unavailable YAQUELIN MARTELL DENISSE Primary Care Unavailable YAQUELIN MARTELL DENISSE Primary Care Unavailable Tyler Roach Attending Unavailab Tyler Martinez Admitting Unavailab Yaquelin Sheth Primary Care Unavailable CLIFFORD BACA Attending Unavailable Melissa Rivera Attending Unavaila JUDITH Dee Primary Care Unavailable DENISSE CHIANG Admitting Unavailable DENISSE CHIANG Attending Unavailable YAQUELIN MARTELL Primary Care Unavailable YAQUELIN MARTELL Primary Care Unavailable PROBLEMS DATE TYPE CONDITION / CODE ATTENDING STATUS [facility] 11/01/2023 Admitting Diagnosis Other hemorrhoids / K64.8(ICD-10) DENISSE CHIANG [facility] 12/13/2023 Admitting Diagnosis Encounter for other preprocedural examination / Z01.818(ICD-10) LUIS [facility] 11/28/2023 Admitting Diagnosis Arthropathy, unspecified / M12.9(ICD-10) JOSEPH SORIANO [facility] Ambulatory PROCEDURES No Procedure Records Found RESULTS GASTROENTEROLOGY OFFICE/CLIN IC NOTE Observed: 09/24/2024 8:10 AM Status: F Source: [facility] Gastroenterology Office/Clin ic Note Chief Complaint Change in bowel habits after hemm HPI Staff Established patient is a(n) 44 year old female who presents today for a(n) 1 year follow up. Pt continues Apriso 0.375mg, 4 caps daily. Hemorrhoidectomy 12/24/23 @ . Annual colonoscopy due. Any GI complaints? Bloating and 3-5 days between BM Any blood thinners? no Any GLP-1 agonists? no Last visit 09/24/24 w/Dr. Rivera: Assessment/Plan 1. Chronic pancolonic ulcerative [...] For now also continue turmeric Mediterranean diet Repeat Colonoscopy annually Regarding her skin symptoms, she possibly has overlapping SLE with the face rash and Raynaud's phenomena, therefore I would like to refer her to rheumatology- Patient was referred to [facility] at her last visit but patient has not been able to reach then to scheduled so we will place a referral to [facility] Rheumatology. 2. Rectal prolapse (K62.3: Rectal prolapse) referral placed to colorectal at [facility] Colonoscopy 09/10/23: Impression and Plan 1. Small internal and [...] D: RECTUM, BIOPSY: - Inactive chronic colitis Liver Studies Hep Bs Ag: Negative (07/11/23) TB: Negative (07/11/23) History of Present Illness Reviewed HPI collected by staff Review of Systems PHQ Score Initial Depression Screen Score: 0 SCORE All systems reviewed, negative; Except for above Physical Exam Vitals & Measurements HR: 73(Peripheral) BP: 125/86 HT: 65 in HT: 166 cm WT: 201.723 lb WT: 91.5 kg BMI: 33.21 No acute distress Procedure Colonoscopy 09/10/23: Impression and Plan 1. Small internal and [...] switched to Imuran (not sure though), Dr. Popabram had many flare ups then started Humira, worked well, but had Lupus like symptoms and had Abs, Stephenson symptoms then Entyvio 2016 and 2019, worked very well, but she lost insurance, 10-20 BM with blood after she stopped it restarted mesalamine, working OK Last colonoscopy 2023 showed small internal and external hemorrhoids, Mild sigmoid diverticulosis, Normal colonic mucosa throughout the colon, Sparks score 0. Currently she seems to be in a clinical remission on mesalamine, but want to make sure she is also on endoscopic remission. Consider Entyvio if there is inflammation on colonoscopy in the future, can discuss IV versus subQ For now, continue turmeric Mediterranean diet recommended Repeat Colonoscopy annually Up-to-date on vaccinations Regarding her skin symptoms, she possibly has overlapping SLE with the face rash and Raynaud's phenomena. She did see derm who reportedly could not figure this out. She c/o weather-sensitive joint aches, no stiffness She believes her vision has changed but denies eye pain Current symptoms: no diarrhea, formed stool no blood, some constipation - Schedule Colonoscopy to evaluate. Discussed risks such as bleeding, injury and perforation as well as benefits. Patient agreeable. - Recommended MiraLax for constipation - Labs ordered I, Pamela Millan, personally scribed for Melissa Rivera on 09/24/2024 08:27:31. . Documentation recorded by Pamela Millan, accurately reflects the services I performed and decisions made by me. Melissa Rivera MD Follow-up No qualifying data available Problem List/Past Medical History Ongoing BMI 38.0-38.9,adult Choledocholithiasis Chronic pancolonic ulcerative colitis Family history of malignant neoplasm of other organs or systems Family history of malignant neoplasm of trachea, bronchus and lung Historical No qualifying data Procedure/Surgical History Colonoscopy (09/10/2023), Laparoscopic cholecystectomy (09/07/2017), Bilateral tubal ligation, Colonoscopy, Endometrial ablation, Hemorrhoid operation, Hemorrhoids, Histology tonsillectomy, History of hernia repair. Medications Danya Apriso 0.375 g oral capsule, extended release, 1.5 gm= 4 cap(s), Oral, qAM, 6 refills Lamictal 25 mg Tab, 50 mg= 2 tab(s), Oral, Daily phentermine 37.5 mg Tab, 37.5 mg= 1 tab(s), Oral, Daily Protonix 40 mg Tab-DR, 1 tab(s), Oral, Daily traZODONE 50 mg Tab Trelegy Ellipta 200 mcg-62.5 mcg-25 mcg/inh inhalation powder, 1 puff(s), Inhalation, Daily venlafaxine 75 mg Cap-ER Ventolin HFA 90 mcg/inh Aerosol, 2 puff(s), Inhalation, QID, PRN Allergies Tessalon Perles (Swelling, Rash) benzonatate (Eruption, Swelling) Social History Alcohol - Denies Alcohol Use, 09/06/2017 Never., 09/23/2024 Substance Abuse - Denies Substance Abuse, 09/06/2017 Never., 09/23/2024 Tobacco - Denies Tobacco Use, 09/06/2017 Never (less than 100 in lifetime) Tobacco Use:. Never Smokeless Tobacco Use:., 09/24/2024 Never (less than 100 in lifetime) Tobacco Use:., 09/23/2024 Family History Diverticulosis of colon: Grandparent and Grandparent. Metastatic cancer: Mother. Immunizations Vaccine Date Status Comments influenza virus vaccine, inactivated - Not Given Patient Refuses influenza virus vaccine, inactivated - Not Given Patient Refuses influenza virus vaccine, inactivated - Not Given Patient Refuses SARS-CoV-2 (COVID-19) mRNA-1273 vaccine 06/02/2020 Recorded SARS-CoV-2 (COVID-19) mRNA-1273 vaccine 05/05/2020 Recorded measles/mumps/rubella virus vaccine 09/20/2018 Recorded hepatitis A adult vaccine 09/20/2018 Recorded hepatitis B adult vaccine 04/16/2017 Recorded hepatitis B adult vaccine 11/08/2016 Recorded hepatitis B adult vaccine 10/04/2016 Recorded Result Comment: Electronical ly Signed By: Melissa Rivera MD\.br\Date and Time Signed: 09/24/24 08:46 EDT\.br\Electronically Co-Signed By: Pamela Millan MA\.br\Date and Time Co-Signed: 09/24/24 08:39 EDT AMBULATORY VISIT SUMMARY Observed: 09/24 8:10 AM Status: F Source: [facility] Ambulatory Visit Summary MADHURI MARTINEZ :1980 Visit Date:09/24/2024 Ambulatory Visit Instructions Your Diagnosis Chronic pancolonic ulcerative colitis Constipation Joint ache Your Care Team Attending Physician - Miguel HAQUE, Melissa Talavera Primary Care Physician - Yaquelin Martell MD This Is Your Medications List Contact prescribing physician if questions or concerns albuterol (Ventolin HFA 90 mcg/inh Aerosol) fexofenadine (Danya) fluticasone/umeclidinium/vilanterol (Trelegy Ellipta 200 mcg-62.5 mcg-25 mcg/inh inhalation powder) lamotrigine (Lamictal 25 mg Tab) mesalamine (Apriso 0.375 g oral capsule, extended release) pantoprazole (Protonix 40 mg Tab-DR) phentermine (phentermine 37.5 mg Tab) trazodone (traZODONE 50 mg Tab) venlafaxine (venlafaxine 75 mg Cap-ER) Procedures Performed Colonoscopy (09/10/2023), Laparoscopic cholecystectomy (09/07/2017), Bilateral tubal ligation, Colonoscopy, Endometrial ablation, Hemorrhoid operation, Hemorrhoids, Histology tonsillectomy, History of hernia repair. Discharge Vitals Heart Rate (Peripheral) 73 Blood Pressure 125/86 Height 166 cm Height 65 in Weight 91.5 kg Weight 201.723 lb BMI 33.21 What to do next You Need to Complete the Following CBC w/ Auto Diff, Blood, Routine collect, 09/24/24, Order for future visit, Lab Collect, Chronic pancolonic ulcerative colitis, Print Label By Order Location Comprehensive Metabolic Panel, Blood, Routine collect, 09/24/24, Order for future visit, Lab Collect, Chronic pancolonic ulcerative colitis, Print Label By Order Location Vitamin D 25 Hydroxy, Blood, Routine collect, 09/24/24, Order for future visit, Lab Collect, Chronic pancolonic ulcerative colitis, Print Label By Order Location Medications What How Much When Instructions Unchanged albuterol (Ventolin HFA 90 mcg/ inh Aerosol) 2 Puffs Inhalation 4 times a day as needed for Shortness of breath or wheezing Contact prescribing physician if questions or concerns Unchanged fexofenadine (Danya) Contact prescribing physician if questions or concerns Unchanged fluticasone/ umeclidinium/ vilanterol (Trelegy Ellipta 200 mcg-62.5 mcg-25 mcg/ inh inhalation powder) 1 Puffs Inhalation Every day Contact prescribing physician if questions or concerns Unchanged lamotrigine (Lamictal 25 mg Tab) 2 Tablets By Mouth Every day Contact prescribing physician if questions or concerns Unchanged mesalamine (Apriso 0.375 g oral capsule, extended release) 4 Capsules By Mouth Once a day (in the morning) Contact prescribing physician if questions or concerns Unchanged pantoprazole (Protonix 40 mg Tab-DR) 1 Tablets By Mouth Every day Contact prescribing physician if questions or concerns Unchanged phentermine (phentermine 37.5 mg Tab) 1 Tablets By Mouth Every day Contact prescribing physician if questions or concerns Unchanged trazodone (traZODONE 50 mg Tab) Contact prescribing physician if questions or concerns Unchanged venlafaxine (venlafaxine 75 mg Cap-ER) Contact prescribing physician if questions or concerns Allergies Tessalon Perles (Swelling, Rash) benzonatate (Eruption, Swelling) Problems Ongoing - Any problem that you are currently receiving treatment for. BMI 38.0-38.9,adult Choledocholithiasis Chronic pancolonic ulcerative colitis Family history of malignant neoplasm of other organs or systems Family history of malignant neoplasm of trachea, bronchus and lung Patient Survey You may receive a survey via text or e-mail asking about your office visit. Please share your experience with us by completing your survey. We appreciate your feedback and thank you for choosing us for your care. SURGICAL PATHOLOGY STUDY Observed: 12/23 6:16 PM Status: F Source: [facility] Order Comment: Pre-op diagno sis: Prolapsed internal hemorrhoids [K64.8] Pathology report.total SEE COMMENT Surgical Pathology Case: [id number] Authorizing Provider: Denisse Chiang MD Collected: 12/24/20231815 Ordering Location: [facility] Received: 12/25/2023 0826 OR Pathologist: Annalise Chapman MD Specimens: A) - HEMORRHOID, RIGHT LATERAL HEMORRHOID B) - HEMORRHOID, LEFT POSTERIOR HEMORRHOID Path report.final diagnosis SEE COMMENT A. HEMORRHOID: -- Hemorrhoid B. HEMORRHOID: --Hemorrhoid Laboratory comment By the signature on this report, the individual or group listed as making the Final Interpretation/Diagnosis certifies that they have reviewed this case. Path report.relevant Hx SEE COMMENT Pre-op diagnosis: Prolapsed internal hemorrhoids [K64.8] Path report.gross observation SEE COMMENT A: Received in formalin, labeled with the patient???s name and hospital number, is a segment of mucosal covered soft tissue measuring 2.3 x 1.5 x 0.9 cm. The resection margin is inked. Demolition Crane Operator sections are submitted in one cassette. ALTB: Received in formalin, labeled with the patient???s name and hospital number, is a segment of mucosal covered soft tissue measuring 2.5 x 1.6 x 1.0 cm. The resection margin is inked. Demolition Crane Operator sections are submitted in one cassette. ALT CHORIOGONADOTROPIN (PREGNANC Y TEST) Collected: 12/24/2023 12:16 PM Status: F Source: [facility] TYPE CODE TESTS RESULT OUT OF RANGE REFERENCE UNITS LAB 18956-3(LOIN C) Choriogonadotropin ( test) NEGATIVE NEGATIVE Performed By: #### 22423-9 # ### SABRINA GERMAN ([id number]) [facility] ([facility]) [address] [place] [address] GLUCOSE Collected: 12:13 PM Status: F Source: [facility] TYPE CODE TESTS RESULT OUT OF RANGE REFERENCE UNITS LAB 2341-6(LOINC) Glucose 99 74-99 mg/dL Performed By: #### 2341-6 ## ## SABRINA GERMAN ([id number]) [facility] ([facility]) [address] [place] [address] BASIC METABOLIC 2000 PANEL Collected: 0 12/13/2023 2:38 PM Status: F Source: [facility] TYPE CODE TESTS RESULT OUT OF RANGE REFERENCE UNITS LAB 2345-7(LOINC) Glucose 117 High 74-99 mg/dL LAB 2951-2(LOINC) Sodium 141 136-145 mmol/L LAB 2823-3(LOINC) Potassium 4.9 3.5-5.3 mmol/L LAB 2075-0(LOINC) Chloride 104 98-107 mmol/L LAB 8-9(LOINC) Carbon dioxide 30 21-32 mmo l/L LAB 76266-4(LOINC) Anion gap 12 10-20 mmol/L LAB 3094-0(LOINC) Urea nitrogen 7 6-23 mg/d L LAB 2160-0(LOINC) Creatinine 0.66 0.50-1.05 mg/dL LAB 21221-6(LOINC) Glomerular filtration rate/1.73 sq M.predicted >90 >60 mL/min/1 .73m*2 Result Comment: Calculations of estimated GFR are performed using the 2020 CKD- EPI Study Refit equation without the race variable for the IDMS-Traceable creatinine methods. https://jasn.asnjournals.org/content/early//ASN.2560053486 LAB 15826-0(LOINC) Calcium 10.2 8.6-10.3 mg/dL Performed By: #### 82333-8 # ### SABRINA GERMAN ([id number]) [facility] ([facility]) [address] [place] [address] ERYTHROCYTE SEDIMENTATION RATE Collected: 11/28/2023 3:21 PM Status: F Source: [facility] TYPE CODE TESTS RESULT OUT OF RANGE REFERENCE UNITS LAB 4537-7(LOINC) Erythrocyte sedimentation rate <1 0-20 mm/h Performed By: #### 4537-7 ## ## KADE Sandra ([id number]) [facility] ([facility]) [id number] [place] [address] URATE Collected: 3:21 PM Status: F Source: [facility] TYPE CODE TESTS RESULT OUT OF RANGE REFERENCE UNITS LAB 3084-1(LOINC) Urate 1.8 Low 2.3-6.7 mg/dL Result Comment: Venipuncture immediately after or during the administration of Metamizole may lead to falsely low results. Testing should be performed immediately prior to Metamizole dosing. Performed By: #### 3084-1 ## ## KADE Sandra ([id number]) [facility] ([facility]) [address] [place] [address] CALCIDIOL Collected: 3:21 PM Status: F Source: [facility] Order Comment: Deficiency: < 20 ng/ml Insufficiency: 20-29 ng/ml Sufficiency: 30-100 ng/ml This assay accurately quantifies the sum of Vitamin D3, 25-Hydroxy and Vitamin D2,25-Hydroxy. TYPE CODE TESTS RESULT OUT OF RANGE REFERENCE UNITS LAB 1988-07(LOINC) Calcidiol 65 30-100 ng/mL Performed By: #### 1988-07 ## ## KADE Sandra ([id number]) [facility] ([facility]) [address] [place] [address] C REACTIVE PROTEIN Collected: 11/28/2023 3:21 PM Sta tus: F Source: [facility] TYPE CODE TESTS RESULT OUT OF RANGE REFERENCE UNITS LAB 1987-09(LOINC) C reactive protein <0.10 <1.00 mg/dL Performed By: #### 1987-09 ## ## KADE Sandra ([id number]) [facility] ([facility]) [address] [place] [address] COMPLEMENT C4 Collected: 11/28/2023 3:21 PM Status: F Source: [facility] TYPE CODE TESTS RESULT OUT OF RANGE REFERENCE UNITS LAB 4498-2(LOINC) Complement C4 14 10-50 mg/d L Performed By: #### 4498-2 ## ## KADE Sandra ([id number]) [facility] ([facility]) [address] [place] [address] COMPLEMENT C3 Collected: 11/28/2023 3:21 PM Status: F Source: [facility] TYPE CODE TESTS RESULT OUT OF RANGE REFERENCE UNITS LAB 4485-9(LOINC) Complement C3 101 87-200 mg/d L Performed By: #### 4485-9 ## ## KADE BOURNEMOTZER L ([id number]) [facility] ([facility]) [address] [place] [address] RHEUMATOID FACTOR Collected: 11/28/2023 3:21 PM Stat us: F Source: [facility] TYPE CODE TESTS RESULT OUT OF RANGE REFERENCE UNITS LAB 61754-9(LOINC) Rheumatoid factor <10 0-15 IU/mL Performed By: #### 16057-4 # ### KADE Sandra ([id number]) [facility] ([facility]) [address] [place] [address] PROTEIN Collected: 4 3:21 PM Status: F Source: [facility] TYPE CODE TESTS RESULT OUT OF RANGE REFERENCE UNITS LAB 2885-2(LOINC) Protein 6.8 6.4-8.2 g/dL Performed By: #### 2885-2 ## ## KADE Sandra ([id number]) [facility] ([facility]) [address] [place] [address] CARDIOLIPIN AB Collected: 4 3:21 PM Status: F Source: [facility] TYPE CODE TESTS RESULT OUT OF RANGE REFERENCE UNITS LAB 8063-0(LOINC) Cardiolipin Ab.IgA 39.0 High <20.0 APL U/mL Result Comment: Elevated lev els of IgA anti-cardiolipin have not been included in the laboratory criteria for anti-phospholipid syndrome according to an international consensus (J Thromb Haemost 2006 4:295). It may be helpful in identifying subgroups of patients at risk for specific clinical manifestations of anti-phospholipid syndrome. LAB 3181-5(LOINC) Cardiolipin Ab.IgG 2.4 <20.0 GPL U/mL Result Comment: Elevated lev els of IgG anti-cardiolipin on 2 occasions at least 12 weeks apart are laboratory criteria for anti-phospholipid syndrome according to an international consensus (J Thromb Haemost 2006 4:295). LAB 3182-3(LOINC) Cardiolipin Ab.IgM 27.7 High <20.0 MPL U/mL Result Comment: Elevated lev els of IgM anti-cardiolipin on 2 occasions at least 12 weeks apart are laboratory criteria for anti-phospholipid syndrome according to an international consensus (J Thromb Haemost 2006 4:295). IgM anti-cardiolipin tends to give false positive results in the low positive range, especially in the presence of rheumatoid factor or cryoglobulins. Performed By: #### 3180-7 ## ## KADE Sandra ([id number]) [facility] ([facility]) [address] [place] [address] CYCLIC CITRULLINATED PEPTIDE AB.IGG Collected: 11/28/2023 3:21 PM Status: F Source: [facility] Order Comment: THE TEST FOR ANTIBODIES SPECIFIC FOR CYCLIC CITRULLINATED PEPTIDE (CCP) HAS SHOWN TO BE VALUABLE IN THE DIAGNOSIS OF RHEUMATOID ARTHRITIS. THE DIAGNOSTIC VALUE OF ANTIBODIES TO CCP IN JUVENILE RHEUMATOID ARTHRITIS PATIENTS HAS NOT BEEN DETERMINED. ANTIBODIES TO CENTROMERE OR SS-A AND MYELOMA IGG MAY BE REACTIVE IN THIS ASSAY. TYPE CODE TESTS RESULT OUT OF RANGE REFERENCE UNITS LAB 11016-7(LOINC) Cyclic citrullinated peptide Ab.IgG <1 <3 U/mL Result Comment: NEGATIVE < 3 U/ML POSITIVE >=3 U/ML Performed By: #### 33126-0 # ### KADE Sandra ([id number]) [facility] ([facility]) [id number] [place] [address] BETA 2 GLYCOPROTEIN 1 AB.IGA AND IGG AND IGM PANEL Collected: 11/28/2023 3:21 PM Status: F Source: [facility] TYPE CODE TESTS RESULT OUT OF RANGE REFERENCE UNITS LAB 84884-9(LOINC) Beta 2 glycoprotein 1 Ab.IgG 2.6 <20.0 U/mL Result Comment: Elevated lev els of IgG anti-Beta 2 Glycoprotein-I on 2 occasions at least 12 weeks apart are laboratory criteria for anti-phospholipid syndrome according to an international consensus (J Thromb Haemost 2006 4:295). LAB 02659-2(LOINC) Beta 2 glycoprotein 1 Ab.IgA 34.2 High <20.0 U/mL Result Comment: Elevated lev els of IgA anti-Beta 2 Glycoprotein-I have not [...] with any clinical manifestation of anti-phospholipid syndrome. LAB 36810-5(LOINC) Beta 2 glycoprotein 1 Ab.IgM 27.5 High <20.0 U/mL Result Comment: Elevated lev els of IgM anti-Beta 2 Glycoprotein-I on 2 occasions at least 12 weeks apart are laboratory criteria for anti-phospholipid syndrome according to an international consensus (J Thromb Haemost 2006 4:295). IgM anti-Beta 2 Glycoprotein-I tends to give false positive results in the low positive range, especially in the presence of rheumatoid factor or cryoglobulins. Performed By: #### 61161-7 # ### KADE Sandra ([id number]) [facility] ([facility]) [id number] [place] [address] EXTRACTABLE NUCLEAR AB PANEL Collected: 11/28/2023 3: 21 PM Status: F Source: [facility] TYPE CODE TESTS RESULT OUT OF RANGE REFERENCE UNITS LAB 26666-4(LOINC ) Dias extractable nuclear Ab <0.2 <1.0 AI Result Comment: < 1.0 = NEGA TIVE >=1.0 = POSITIVE LAB 29386-4(LOINC ) Ribonucleoprotein extractable nuclear Ab 0.6 <1.0 AI Result Comment: < 1.0 = NEGA TIVE >=1.0 = POSITIVE LAB 69519-4(LOINC ) Dias extractable nuclear Ab+Ribonucleoprotein extractable nuclear Ab <0.2 <1.0 AI Result Comment: < 1.0 = NEGA TIVE >=1.0 = POSITIVE LAB 35955-8(LOINC ) Sjogrens syndrome-A extractable nuclear Ab <0.2 <1.0 AI Result Comment: < 1.0 = NEGA TIVE >=1.0 = POSITIVE LAB 55524-1(LOINC ) Sjogrens syndrome-B extractable nuclear Ab <0.2 <1.0 AI Result Comment: < 1.0 = NEGA TIVE >=1.0 = POSITIVE LAB 5348-8(LOINC) SCL-70 extractab le nuclear Ab <0.2 <1.0 AI Result Comment: < 1.0 = NEGA TIVE >=1.0 = POSITIVE LAB 5234-0(LOINC) Meryl-1 extractable nuclear Ab <0.2 <1.0 AI Result Comment: < 1.0 = NEGA TIVE >=1.0 = POSITIVE LAB 57684-3(LOINC ) Chromatin Ab <0.2 <1.0 AI Result Comment: < 1.0 = NEGA TIVE >=1.0 = POSITIVE LAB 22811-6(LOINC ) Centromere protein B Ab <0.2 <1.0 AI Result Comment: < 1.0 = NEGA TIVE >=1.0 = POSITIVE LAB 38661-4(LOINC ) Ribosomal P Ab <0.2 <1.0 AI Result Comment: < 1.0 = NEGA TIVE >=1.0 = POSITIVE LAB 5130-0(LOINC) DNA double strand Ab 1.0 <5.0 IU/mL Result Comment: NEGATIVE: <= 4 IU/ML EQUIVOCAL: 5- 9 IU/ML POSITIVE: >=10 IU/ML Performed By: #### 50547-6 # ### KADE Sandra ([id number]) [facility] ([facility]) [address] [place] [address] NUCLEAR AB Collected: 3:21 PM Status: F Source: [facility] TYPE CODE TESTS RESULT OUT OF RANGE REFERENCE UNITS LAB 27767-9(LOINC) Nuclear Ab Negative Negative Result Comment: The Antinucl ear Antibody (JERZY) test was performed using indirect immunofluorescence assay with HEp-2 cells slide. Performed By: #### 55132-3 # ### KADE Sandra ([id number]) [facility] ([facility]) [address] [place] [address] SERUM PROTEIN ELECTROPHORESI S + IMMUNOFIXATION Collected: 11/28/2023 3:21 PM Status: F Source: [facility] TYPE CODE TESTS RESULT OUT OF RANGE REFERENCE UNITS LAB ALBPE ALBUMIN 4.4 3.4-5.0 g/dL LAB ALPH1 ALPHA 1 GLOBULIN 0.3 0.2-0.6 g/dL LAB ALPH2 ALPHA 2 GLOBULIN 0.5 0.4-1.1 g/dL LAB BETA BETA GLOBULIN 0.6 0.5-1.2 g/dL LAB GAMMA GAMMA GLOBULIN 1.0 0.5-1.4 g/dL LAB INTPE PROTEIN ELECTROPHORESIS COMMENT Normal. LAB IEPIN IMMUNOFIXATION COMMENT No monoclonal protein detected by immunofixatio n. LAB PRV12 PATH REVIEW-SERU M PROTEIN ELECTROPHORESIS SEE COMMENT Result Comment: Reviewed and approved by ALICE MORALES on 12/03/23 at 8:41 PM. LAB PRV34 PATH REVIEW - SERUM IMMUNOFIXATION SEE COMMENT Result Comment: Reviewed and approved by ALICE MORALES on 12/03/23 at 8:41 PM. Performed By: #### IFE3 #### KADE Sandra ([id number]) [facility] ([facility]) [address] [place] [address] XR HAND 3+ VIEWS BILATERAL Observed: 2:57 PM Status: F Source: [facility] Interpreted By: Dara Martins, STUDY: XR HAND 3+ VIEWS BILATERAL; ; 11/28/2023 3:12 pm INDICATION: Signs/Symptoms:r/o erosiosn or calcinosis. COMPARISON: None. ACCESSION NUMBER(S): [id number] ORDERING CLINICIAN: JOSEPH SORIANO FINDINGS: Bilateral hands, three views of each There is no fracture. There is no dislocation. There are no degenerative changes. There is no erosion or chondrocalcinosis. There is no soft tissue abnormality seen. IMPRESSION: Normal radiographs of the hands MACRO: None Signed by: Daniel Martins 11/29/2023 8:41 PM Dictation workstation: [id number] XR SACROILIAC JOINTS 3+ VIEWS Observed: 11/28/2023 2:57 PM Status: F Source: [facility] Interpreted By: Dara Martins, STUDY: XR SACROILIAC JOINTS 3+ VIEWS; ; 11/28/2023 3:12 pm INDICATION: Signs/Symptoms:r/o erosions or sacroilitis. COMPARISON: None. ACCESSION NUMBER(S): [id number] ORDERING CLINICIAN: JOSEPH SORIANO FINDINGS: SI joints, three views There is no sclerosis or erosions in the SI joints. No degenerative change seen. There is no fracture. There is no dislocation. There is no lytic or sclerotic lesion. There is no soft tissue abnormality seen. IMPRESSION: Normal radiographs of the sacroiliac joints MACRO: None Signed by: Daniel Martins 11/29/2023 8:41 PM Dictation workstation: [id number] PHYSICIAN REFERRAL Observed: 09/27/2023 11:00 AM Status: F Source: [facility] [id number]#1.00TIFF ALLERGIES DATE TYPE / CODE NAME / CODE REACTION SEVERITY SOURCE 10/03/2019 Drug Allergy/6885980 02(SNOMED CT) No Known Allergies/[id number] (RXNORM) Unknown [facility] /807267256(SN OMED CT) No Known Allergies [facility] KAE/694093 006(SNOMED CT) NO KNOWN ALLERGIES [facility]ulatory /[id number](SN OMED CT) Unknown [facility] ENCOUNTERS ADMIT/DISCHARGE ACCOUNT NUMBER ADMITTING ENCOUNTER CLASS LOCATION SOURCE 09/24/2024/09/25/19 [id number] Ambulatory [facility] DHBuilding:F [facility] DHRoom: CD:[id number] [facility] 01/22/2024/01/22/20 [id number] Ambulatory Building:[facility] [id number] Ambulatory 01/03/2024/01/03/20 [id number] Ambulatory Building:NOM S BCP OB [facility] EPIC 12/24/2023/12/24/19 [id number] DENISSE CHIANG Ambulatory Building:[facility] ORRoom: STJORPOOLBed : 6578 [facility] 12/13/2023/12/13/19 24 [id number] Ambulatory Building:[facility] 12/13/2023/12/13/19 24 [id number] Ambulatory Building:[facility] 11/28/2023/11/28/19 24 [id number] Ambulatory Building:[facility] 11/28/2023/11/28/19 24 [id number] Ambulatory Building:[address] 11/28/2023/11/28/19 24 [id number] Ambulatory Building:[address] 11/28/2023/11/28/19 24 [id number] Ambulatory Building:[facility] [id number] [facility]ulatory 11/28/2023/11/28/19 24 [id number] Ambulatory Building:[facility] [id number] 10/24/2023 [id number] [facility]BHCREDILINDA E [facility] 10/09/2023/10/09/19 24 [id number] Ambulatory Building:[facility] [id number] [facility] 10/03/2018 [id number] Ambulatory CD:[id number] 3Building:CD :[id number] [facility] PAYERS ENCOUNTER GUARANTOR PAYER SUBSCRIBER SOURCE 09/24/2024 MADHURI FUENTESB: [facility] ~~(56 (HP) Primary Insurance:AnthemPo licy Number: [id number] anita Date:[id number] [address]GM: MADHURI GREY [facility] 01/22/2024 MADHURI FUENTESB: [place], [place] [address]Sqm: (HP) Primary Insurance:ANTHEMPo licy Number: [id number] anita Date:2021-05-07 MADHURI FUENTESB: [id number] [place], [place] [address]Xuk: (HP) [facility] 01/03/2024 MADHURI FUENTESB: [place], [place] [address]Pom: (HP) Primary Insurance:BCBSPoli cy Number: [id number] anita Date:2021-05-07 MADHURI FUENTESB: [id number] [place] [address] [facility] 12/24/2023 MADHURI FUENTESB: [place], [place] [address]Cnl: (HP) Primary Insurance:ANTHEMPo licy Number: [id number] anita Date:2021-05-07 MADHURI Phillips WOTTDOB: [id number] [facility], [place] [address]Cwu: (HP) [facility] 12/13/2023 MADHURI Phillips WOTTDOB: [facility] [place] [place] [address]Mvy: () Primary Insurance:ANTHEMPo licy Number: [id number] anita Date:2021-05-07 MADHURI Phillips JUANDOB: [id number] [facility], [place] [address]Jkk: (HP) [facility] 12/13/2023 MADHURI Jacqueline MARTINEZDOB: [facility] [address]Kgj: () Primary Insurance:ANTHEMPo licy Number: [id number] anita Date:2021-05-07 MADHURI Jacqueline MARTINEZDOB: [id number] [facility], [place] [address]Bmd: (HP) [facility] 11/28/2023 MADHURI Jacqueline MARTINEZDOB: [facility], [place] [address]Utc: () Primary Insurance:ANTHEMPo licy Number: [id number] anita Date:2021-05-07 MADHURI Jacqueline MARTINEZDOB: [id number] [facility], [place] [address]Ltv: (HP) [facility] 11/28/2023 MADHURI MARTINEZDOB: [facility], [place] [address]Ufv: () Primary Insurance:ANTHEMPo licy Number: [id number] anita Date:2021-05-07 MADHURI FUENTESB: [id number] [place], [place] [address]Ngy: () [facility] 11/28/2023 MADHURI FUENTESB: [place], [place] [address]Gbe: () Primary Insurance:ANTHEMPo licy Number: [id number] anita Date:2021-05-07 MADHURI FUENTESB: [id number] [place], [place] [address]Wyh: () [facility] 11/28/2023 MADHURI FUENTESB: [place], [place] [address]Djr: () Primary Insurance:ANTHEMPo licy Number: [id number] anita Date:2021-05-07 MADHURI FUENTESB: [id number] [place], [place] [address]Rlc: () [facility] 11/28/2023 MADHURI FUENTESB: [place], [place] [address]Fcd: () Primary Insurance:ANTHEMPo licy Number: [id number] anita Date:2021-05-07 MADHURI ALCARAZ: [id number] [place], [place] [address]Wng: (HP) [facility] 10/24/2023 Madhuri Phillips [address] [place] [id number]: () Primary Insurance:Self PayPolicy Number: Effective Date:2022-09-07 [facility]/09/2023 MADHURI FUENTESB: [place], [place] [address]Ujk: () Primary Insurance:ANTHEMPo licy Number: [id number] anita Date:2021-05-07 MADHURI ALCARAZ: [id number] [address]Kow: () [facility] Ambulatory
[2024-09-25] MEDS: ALBUTEROL SULFATE 2.5 MG/3 ML VIAL NEB IH (13:37)
--- NOTE | 2024-09-25 13:38 | RT_ITS ---
[facility] Test Date: 2024-09-25 Pat Name: RAMY MARTINEZ Department: Room: - Gender: Female Roof Fixer: Edwin Banerjee RRT : 1980 Requested By: Orestes Gerber Order Number: [id number] Reading MD: Orestes Gerber Interpretive Statements Pulmonary function testing was completed according to ATS criteria. Findings were considered accurate and reproducible. Both pre- and post-bronchodilator values utilized for spirometry. Spirometry (based on pre-bronchodilator values): -FEV1/FVC: Normal @ 80% -FEV1: Normal @ 102% -FVC: Normal @ 103% -There is a partial bronchodilator response in FEV1 which meets >200mL increase but <12% change. Lung volumes by plethysmography: -RV: Normal @ 82% -TLC: Normal @ 101% Diffusion capacity: -DLCO: Normal @ 113% when corrected for Hb 14.2g/dL Impressions: -Normal PFT. Clinical correlation required. Electronically Signed On 10-01-2024 9:19:58 EDT by Oretses Gerber
== END 2024-09-25 12:51 | disposition home or self-care (01) ==
LOC: CARD 12:51
PROVIDERS: PCP Family Medicine; Visit Provider Internal Medicine
DX: J45.50 Severe persistent asthma, uncomplicated (principal)
CPT/HCPCS: 94060; 94726; 94729

== ENCOUNTER 2024-09-26 16:25 | Outpatient (OUT) | payer BC, SELFPAY ==
--- OUTSIDE RECORDS SUMMARY | 2024-09-24 08:10 | XMS_ITS ---
Author Name Auto Generated Organization OHIP Care Team Providers Care Mig Welder Name Role Phone DENISSE CHIANG Admitting Unavailable DENISSE CHIANG Attending Unavailable YAQUELIN MARTELL Primary Care Unavailable YAQUELIN MARTELL Primary Care Unavailable Tyler Roach Attending Unavailab Tyler Martinez Admitting Unavailab Yaquelin Sheth Primary Care Unavailable DENISSE CHIANG Attending Unavailable YAQUELIN MARTELL Primary Care Unavailable MUOH, JOSEPH H Referring Unavailable YAQUELIN MARTELL Primary Care Unavailable MUOH, JOSEPH H Referring Unavailable YAQUELIN MARTELL Primary Care Unavailable YAQUELIN MARTELL Primary Care Unavailable YAQUELIN MARTELL Primary Care Unavailable CLIFFORD BACA Attending Unavailable DENISSE CHIANG Attending Unavailable YAQUELIN MARTELL Primary Care Unavailable ELIEZEROH, JOSEPH H Attending Unavailable YAQUELIN MARTELL Primary Care Unavailable DENISSE CHIANG Attending Unavailable YAQUELIN MARTELL Primary Care Unavailable Melissa Rivera Attending Unavaila ble PROBLEMS DATE TYPE CONDITION / CODE ATTENDING STATUS [facility] 11/01/2023 Admitting Diagnosis Other hemorrhoids / K64.8(ICD-10) DENISSE CHIANG Active [facility] 12/13/2023 Admitting Diagnosis Encounter for other preprocedural examination / Z01.818(ICD-10) NA Active [facility] 11/28/2023 Admitting Diagnosis Arthropathy, unspecified / M12.9(ICD-10) NA [facility] PROCEDURES No Procedure Records Found RESULTS GASTROENTEROLOGY OFFICE/CLIN IC NOTE Observed: 09/24/2024 8:10 AM Status: F Source: [facility] Gastroenterology Office/Clin ic Note Chief Complaint Change [...] so we will place a referral to [facility] Rheumatology. 2. Rectal prolapse (K62.3: Rectal prolapse) referral placed to colorectal at [facility] Colonoscopy 09/10/23: Impression and Plan 1. Small [...] Observed: 09/24 8:10 AM Status: F Source: [facility] Ambulatory Visit Summary MADHURI MARTINEZ :1980 Visit [...] Observed: 12/23 6:16 PM Status: F Source: [facility] Order Comment: Pre-op diagno sis: Prolapsed internal hemorrhoids [K64.8] Pathology report.total SEE COMMENT Surgical Pathology Case: [id number] Authorizing Provider: Denisse Chiang MD Collected: 12/24/2023 1816 Ordering Location: [facility] Received: 12/25/2023 0826 OR Pathologist: [...] 0.9 cm. The resection margin is inked. [employer] sections are submitted in one cassette. ALTB: Received in formalin, labeled with the patient???s name and hospital number, is a segment of mucosal covered soft tissue measuring 2.5 x 1.6 x 1.0 cm. The resection margin is inked. [employer] sections are submitted in one cassette. ALT CHORIOGONADOTROPIN (PREGNANC Y TEST) Collected: 12/24/2023 12:16 PM Status: F Source: [facility] TYPE CODE TESTS RESULT OUT OF RANGE REFERENCE UNITS LAB 81611-2(LOIN C) Choriogonadotropin ( test) NEGATIVE NEGATIVE Performed By: #### 37961-7 # ### SABRINA GERMAN ([id number]) [facility] ([facility] [address] [place] [address] GLUCOSE Collected: 12:13 PM Status: F Source: [facility] TYPE CODE TESTS RESULT OUT OF RANGE REFERENCE UNITS LAB 2341-6(LOINC) Glucose 99 74-99 mg/dL Performed By: #### 2341-6 ## ## SABRINA GERMAN ([id number]) [facility] ([facility] [address] [place] [address] BASIC METABOLIC 2000 PANEL Collected: 0 12/13/2023 2:38 PM Status: F Source: [facility] TYPE CODE TESTS RESULT OUT OF RANGE REFERENCE UNITS LAB 2345-7(LOINC) Glucose 117 High 74-99 mg/dL LAB 2951-2(LOINC) Sodium 141 136-145 mmol/L LAB 2823-3(LOINC) Potassium 4.9 3.5-5.3 mmol/L LAB 2075-0(LOINC) Chloride 104 98-107 mmol/L LAB 2028-9(LOINC) Carbon dioxide 30 21-32 mmo l/L LAB 12073-9(LOINC) Anion gap 12 10-20 mmol/L LAB 3094-0(LOINC) Urea nitrogen 7 6-23 mg/d L LAB 2160-0(LOINC) Creatinine 0.66 0.50-1.05 mg/dL LAB 35902-5(LOINC) Glomerular filtration rate/1.73 sq M.predicted >90 >60 mL/min/1 .73m*2 Result Comment: Calculations of estimated GFR are performed using the 2020 CKD- EPI Study Refit equation without the race variable for the IDMS-Traceable creatinine methods. https://jasn.asnjournals.org/content/early//ASN.0814068702 LAB 57358-4(LOINC) Calcium 10.2 8.6-10.3 mg/dL Performed By: #### 22265-7 # ### SABRINA GERMAN ([id number]) [facility] ([facility] [address] [place] [address] ERYTHROCYTE SEDIMENTATION RATE Collected: 11/28/2023 3:21 PM Status: F Source: [facility] TYPE CODE TESTS RESULT OUT OF RANGE REFERENCE UNITS LAB 4537-7([facility]) Erythrocyte sedimentation rate <1 0-20 mm/h Performed By: #### 4537-7 ## ## KADE Sandra ([id number]) [facility] ([facility]) [id number] [place] [address] URATE Collected: 4 3:21 PM Status: F Source: [facility] TYPE CODE TESTS RESULT OUT OF RANGE REFERENCE UNITS LAB 3084-1([facility]) Urate 1.8 Low 2.3-6.7 mg/dL Result Comment: Venipuncture immediately after or during the administration of Metamizole may lead to falsely low results. Testing should be performed immediately prior to Metamizole dosing. Performed By: #### 3084-1 ## ## KADE BOURNEMOTZER L ([id number]) [facility] ([facility]) [address] [place] [address] CALCIDIOL Collected: 3:21 PM Status: F Source: [facility] Order Comment: Deficiency: < 20 ng/ml Insufficiency: 20-29 ng/ml Sufficiency: 30-100 ng/ml This assay accurately quantifies the sum of Vitamin D3, 25-Hydroxy and Vitamin D2,25-Hydroxy. TYPE CODE TESTS RESULT OUT OF RANGE REFERENCE UNITS LAB 1988-(LOINC) Calcidiol 65 30-100 ng/mL Performed By: #### 1988-07 ## ## KADE Sandra ([id number]) [facility] ([facility]) [address] [place], [place] [address] C REACTIVE PROTEIN Collected: 11/28/2023 3:21 PM Sta tus: F Source: [facility] TYPE CODE TESTS RESULT OUT OF RANGE REFERENCE UNITS LAB 1987-09(LOINC) C reactive protein <0.10 <1.00 mg/dL Performed By: #### 1987-09 ## ## KADE Sandra ([id number]) [facility] ([facility]) [address] [place], [place] [address] COMPLEMENT C4 Collected: 11/28/2023 3:21 PM Status: F Source: [facility] TYPE CODE TESTS RESULT OUT OF RANGE REFERENCE UNITS LAB 4498-2(LOINC) Complement C4 14 10-50 mg/d L Performed By: #### 4498-2 ## ## KADE Sandra ([id number]) [facility] ([facility]) [address] [place] [address] COMPLEMENT C3 Collected: 11/28/2023 3:21 PM Status: F Source: [facility] TYPE CODE TESTS RESULT OUT OF RANGE REFERENCE UNITS LAB 4485-9(LOINC) Complement C3 101 87-200 mg/d L Performed By: #### 4485-9 ## ## KADE Sandra ([id number]) [facility] ([facility]) [address] [place], [place] [address] RHEUMATOID FACTOR Collected: 11/28/2023 3:21 PM Stat us: F Source: [facility] TYPE CODE TESTS RESULT OUT OF RANGE REFERENCE UNITS LAB 04267-5(LOINC) Rheumatoid factor <10 0-15 IU/mL Performed By: #### 26801-9 # ### KADE Sandra ([id number]) [facility] ([facility]) [address] [place] [address] PROTEIN Collected: 4 3:21 PM Status: F Source: [facility] TYPE CODE TESTS RESULT OUT OF RANGE REFERENCE UNITS LAB 2885-2(LOINC) Protein 6.8 6.4-8.2 g/dL Performed By: #### 2885-2 ## ## KADE Sandra ([id number]) [facility] ([facility]) [address] [place] [address] CARDIOLIPIN AB Collected: 4 3:21 PM Status: F Source: [facility] TYPE CODE TESTS RESULT OUT [...] By: #### 3180-7 ## ## KADE Sandra ([id number]) [facility] ([facility]) [address] [place] [address] CYCLIC CITRULLINATED PEPTIDE AB.IGG Collected: 11/28/2023 3:21 PM Status: F Source: [facility] Order Comment: THE TEST FOR ANTIBODIES SPECIFIC FOR CYCLIC CITRULLINATED PEPTIDE (CCP) HAS SHOWN TO BE VALUABLE IN THE DIAGNOSIS OF RHEUMATOID ARTHRITIS. THE DIAGNOSTIC VALUE OF ANTIBODIES TO CCP IN JUVENILE RHEUMATOID ARTHRITIS PATIENTS HAS NOT BEEN DETERMINED. ANTIBODIES TO CENTROMERE OR SS-A AND MYELOMA IGG MAY BE REACTIVE IN THIS ASSAY. TYPE CODE TESTS RESULT OUT OF RANGE REFERENCE UNITS LAB 22707-6(LOINC) Cyclic citrullinated peptide Ab.IgG <1 <3 U/mL Result Comment: NEGATIVE < 3 U/ML POSITIVE >=3 U/ML Performed By: #### 93364-8 # ### KADE Sandra ([id number]) [facility] ([facility]) [address] [place] [address] BETA 2 GLYCOPROTEIN 1 AB.IGA AND IGG AND IGM PANEL Collected: 11/28/2023 3:21 PM Status: F Source: [facility] TYPE CODE TESTS RESULT OUT OF RANGE REFERENCE UNITS LAB 16437-0(LOINC) Beta 2 glycoprotein 1 Ab.IgG 2.6 <20.0 U/mL Result Comment: Elevated lev els of IgG anti-Beta 2 Glycoprotein-I on 2 occasions at least 12 weeks apart are laboratory criteria for anti-phospholipid syndrome according to an international consensus (J Thromb Haemost 2006 4:295). LAB 06224-4(LOINC) Beta 2 glycoprotein 1 Ab.IgA 34.2 High [...] any clinical manifestation of anti-phospholipid syndrome. LAB 31582-2(LOINC) Beta 2 glycoprotein 1 Ab.IgM 27.5 High [...] rheumatoid factor or cryoglobulins. Performed By: #### 27628-3 # ### KADE Sandra ([id number]) [facility] ([facility]) [address] [place] [address] EXTRACTABLE NUCLEAR AB PANEL Collected: 11/28/2023 3: 21 PM Status: F Source: [facility] TYPE CODE TESTS RESULT OUT OF RANGE REFERENCE UNITS LAB 78568-6(LOINC ) Dias extractable nuclear Ab <0.2 <1.0 AI Result Comment: < 1.0 = NEGA TIVE >=1.0 = POSITIVE LAB 27866-0(LOINC ) Ribonucleoprotein extractable nuclear Ab 0.6 <1.0 AI Result Comment: < 1.0 = NEGA TIVE >=1.0 = POSITIVE LAB 52192-6(LOINC ) Dias extractable nuclear Ab+Ribonucleoprotein extractable nuclear Ab <0.2 <1.0 AI Result Comment: < 1.0 = NEGA TIVE >=1.0 = POSITIVE LAB 68346-7(LOINC ) Sjogrens syndrome-A extractable nuclear Ab <0.2 <1.0 AI Result Comment: < 1.0 = NEGA TIVE >=1.0 = POSITIVE LAB 37167-0(LOINC ) Sjogrens syndrome-B extractable nuclear Ab <0.2 <1.0 AI Result Comment: < 1.0 = NEGA TIVE >=1.0 = POSITIVE LAB 5348-8(LOINC) SCL-70 extractab le nuclear Ab <0.2 <1.0 AI Result Comment: < 1.0 = NEGA TIVE >=1.0 = POSITIVE LAB 5234-0(LOINC) Meryl-1 extractable nuclear Ab <0.2 <1.0 AI Result Comment: < 1.0 = NEGA TIVE >=1.0 = POSITIVE LAB 08721-0(LOINC ) Chromatin Ab <0.2 <1.0 AI Result Comment: < 1.0 = NEGA TIVE >=1.0 = POSITIVE LAB 42151-2(LOINC ) Centromere protein B Ab <0.2 <1.0 AI Result Comment: < 1.0 = NEGA TIVE >=1.0 = POSITIVE LAB 37176-3(LOINC ) Ribosomal P Ab <0.2 <1.0 AI Result Comment: < 1.0 = NEGA TIVE >=1.0 = POSITIVE LAB 5130-0(LOINC) DNA double strand Ab 1.0 <5.0 IU/mL Result Comment: NEGATIVE: <= 4 IU/ML EQUIVOCAL: 5- 9 IU/ML POSITIVE: >=10 IU/ML Performed By: #### 80653-1 # ### KADE Sandra ([id number]) [facility] ([facility]) [address] [place], [place] [address] NUCLEAR AB Collected: 3:21 PM Status: F Source: [facility] TYPE CODE TESTS RESULT OUT OF RANGE REFERENCE UNITS LAB 65018-0(LOINC) Nuclear Ab Negative Negative Result Comment: The Antinucl ear Antibody (JERZY) test was performed using indirect immunofluorescence assay with HEp-2 cells slide. Performed By: #### 24121-7 # ### KADE Sandra ([id number]) [facility] ([facility]) [address] [place] [address] SERUM PROTEIN ELECTROPHORESI S + IMMUNOFIXATION Collected: 11/28/2023 3:21 PM Status: F Source: [facility] TYPE CODE TESTS RESULT [...] Performed By: #### IFE3 #### KADE Sandra ([id number]) [facility] ([facility]) [address] [place] [address] XR HAND 3+ VIEWS BILATERAL Observed: 2:57 PM Status: F Source: [facility] Interpreted By: Dara Martins, STUDY: XR HAND 3+ VIEWS BILATERAL; ; 11/28/2023 3:12 pm INDICATION: Signs/Symptoms:r/o erosiosn or calcinosis. COMPARISON: None. ACCESSION NUMBER(S): [id number] ORDERING CLINICIAN: JOSEPH SORIANO FINDINGS: Bilateral hands, three views of each There is no fracture. There is no dislocation. There are no degenerative changes. There is no erosion or chondrocalcinosis. There is no soft tissue abnormality seen. IMPRESSION: Normal radiographs of the hands MACRO: None Signed by: Daniel Martins 11/29/2023 8:41 PM Dictation workstation: [id number] XR SACROILIAC JOINTS 3+ VIEWS Observed: 11/28/2023 2:57 PM Status: F Source: [facility] Interpreted By: Dara Martins, STUDY: XR SACROILIAC JOINTS 3+ VIEWS; ; 11/28/2023 3:12 pm INDICATION: Signs/Symptoms:r/o erosions or sacroilitis. COMPARISON: None. ACCESSION NUMBER(S): [id number] ORDERING CLINICIAN: JOSEPH SORIANO FINDINGS: SI joints, three views There is no sclerosis or erosions in the SI joints. No degenerative change seen. There is no fracture. There is no dislocation. There is no lytic or sclerotic lesion. There is no soft tissue abnormality seen. IMPRESSION: Normal radiographs of the sacroiliac joints MACRO: None Signed by: Daniel Martins 11/29/2023 8:41 PM Dictation workstation: [id number] ALLERGIES DATE TYPE / CODE NAME / CODE REACTION SEVERITY SOURCE 10/03/2019 Drug Allergy/2844320 02(SNOMED CT) No Known Allergies/[id number] (RXNORM) [facility] DR/202066920(SN OMED CT) No Known Allergies [facility]/526969 006(SNOMED CT) NO KNOWN ALLERGIES [facility] ENCOUNTERS ADMIT/DISCHARGE ACCOUNT NUMBER ADMITTING ENCOUNTER CLASS LOCATION SOURCE 09/24/2024/09/25/19 [id number] Ambulatory Luis Enrique DHBuilding:[place] [place] DHRoom: CD:[id number] [facility] 01/22/2024/01/22/20 [id number] Ambulatory Building:DOM [id number] [facility] 01/03/2024/01/03/20 24 [id number] Ambulatory Building:NOM S BCP OB [facility] 12/24/2023/12/24/19 24 [id number] DENISSE CHIANG Ambulatory Building:[facility] ORRoom: STJORPOOLBed : 6578 [facility] 12/13/2023/12/13/19 [id number] Ambulatory Building:[facility] 12/13/2023/12/13/19 24 [id number] Ambulatory Building:[facility] 11/28/2023/11/28/19 24 [id number] Ambulatory Building:[facility] 11/28/2023/11/28/19 24 [id number] Ambulatory Building:[address] 11/28/2023/11/28/19 24 [id number] Ambulatory Building:[address] 11/28/2023/11/28/19 24 [id number] Ambulatory Building:[facility] [id number] [facility] 11/28/2023/11/28/19 24 [id number] Ambulatory Building:[facility] [id number] [facility] 10/24/2023 [id number] [facility] 10/09/2023/10/09/19 [id number] Ambulatory Building:[facility] [id number] [facility] PAYERS ENCOUNTER GUARANTOR PAYER SUBSCRIBER SOURCE 09/24/2024 MADHURI ALCARAZ: [id number] [facility]: ~~(56 (HP) Primary Insurance:AnthemPo licy Number: [id number] anita Date:[id number] ELVIN GALLARDO [address]BY: MADHURI GREY [facility] 01/22/2024 MADHURI Phillips WOTTDOB: [place], [place] [address]Bed: (HP) Primary Insurance:ANTHEMPo licy Number: [id number] anita Date:2021-05-07 MADHURI FUENTESB: [id number] [place], [place] [address]Oht: (HP) [facility] 01/03/2024 MADHURI Phillips WOTTDOB: [place], [place] [address]Hyz: (HP) Primary Insurance:BCBSPoli cy Number: [id number] anita Date:2021-05-07 MADHURI FUENTESB: [id number] [place] [address] [facility] 12/24/2023 MADHURI MARTINEZDOB: [place], [place] [address]Bxz: () Primary Insurance:ANTHEMPo licy Number: [id number] anita Date:2021-05-07 MADHURI MARTINEZDOB: [id number] [place], [place] [address]Ezs: (HP) [facility] 12/13/2023 MADHURI MARTINEZDOB: [place], [place] [address]Enw: (HP) Primary Insurance:ANTHEMPo licy Number: [id number] anita Date:2021-05-07 MADHURI FUENTESB: [id number] [facility], [place] [address]Cyg: (HP) [facility] 12/13/2023 MADHURI FUENTESB: [facility], [place] [address]Syz: (HP) Primary Insurance:ANTHEMPo licy Number: [id number] anita Date:2021-05-07 MADHURI FUENTESB: [id number] [facility], [place] [address]Gtq: (HP) [facility] 11/28/2023 MADHURI FUENTESB: [facility] [address]Fmn: (HP) Primary Insurance:ANTHEMPo licy Number: [id number] anita Date:2021-05-07 MADHURI FUENTESB: [id number] [facility], [place] [address]Hgk: (HP) [facility] 11/28/2023 MADHURI FUENTESB: [facility], [place] [address]Uds: (HP) Primary Insurance:ANTHEMPo licy Number: [id number] anita Date:2021-05-07 MADHURI FUENTESB: [id number] [facility], [place] [address]Fmp: (HP) [facility] 11/28/2023 MADHURI FUENTESB: [facility], [place] [address]Reo: (HP) Primary Insurance:ANTHEMPo licy Number: [id number] anita Date:2021-05-07 MADHURI FUENTESB: [id number] [place], [place] [address]Max: (HP) [facility] 11/28/2023 MADHURI ALCARAZ: [place], [place] [address]Vhe: (HP) Primary Insurance:ANTHEMPo licy Number: [id number] anita Date:2021-05-07 MADHURI ALCARAZ: [id number] [place], [place] [address]Ohh: (HP) [facility] 11/28/2023 MADHURI ALCARAZ: [place], [place] [address]Tak: () Primary Insurance:ANTHEMPo licy Number: [id number] anita Date:2021-05-07 MADHURI ALCARAZ: [id number] [place], [place] [address]Lck: (HP) [facility] 10/24/2023 Madhuri Phillips [address] [place] [id number]: () Primary Insurance:Self PayPolicy Number: Effective Date:2022-09-07 [facility] 10/09/2023 MADHURI ALCARAZ: [place], [place] [address]Rhr: () Primary Insurance:ANTHEMPo licy Number: [id number] anita Date:2021-05-07 MADHURI ALCARAZ: [id number] [place], [place] [address]Rgo: () [facility]
[2024-09-26 16:44] LABS: Basophils Absolute Auto 0.1 10^3/uL (0.0-0.1); Basophils Percent Auto 1.1 % (0.2-2.0); Eosinophils Absolute Auto 0.4 10^3/uL (0.0-0.7); Eosinophils Percent Auto 7.7 % (0.9-7.0); Hematocrit 40.2 % (36.0-48.0); Hemoglobin 13.8 g/dL (12.0-16.0); Immature Granulocytes Abs Auto 0.01 10^3/uL (0.00-0.03); Immature Granulocytes Pct Auto 0.2 % (0.0-0.5); Lymphocytes Absolute Auto 1.9 10^3/uL (1.2-3.8); Lymphocytes Percent Auto 33.9 % (20.5-60.0); Mean Corpuscular HGB Conc 34.3 g/dL (29.9-35.2); Mean Corpuscular Hemoglobin 30.1 pg (26.7-34.0); Mean Corpuscular Volume 87.8 fL (81.0-99.0); Monocytes Absolute Auto 0.4 10^3/uL (0.3-0.8); Monocytes Percent Auto 6.6 % (1.7-12.0); Neutrophils Absolute Auto 2.8 10^3/uL (1.4-6.5); Neutrophils Percent Auto 50.5 % (43.0-75.0); Platelet Count 350 10^3/uL (150-450); Red Blood Count 4.58 10^6/uL (4.20-5.40); Red Cell Distribution Width 12.5 % (11.0-15.0); White Blood Count 5.5 10^3/uL (4.0-11.0)
[2024-09-26 17:00] LABS: Estimated Average Glucose 128 mg/dL; Glycohemoglobin A1C 6.1 % (4.5-6.2)
[2024-09-26 17:12] LABS: Alanine Aminotransferase 21 U/L (14-59); Albumin Globulin Ratio 1.4; Albumin Level 4.3 g/dL (3.4-5.0); Alkaline Phosphatase 67 U/L (46-116); Aspartate Amino Transferase 11 U/L (15-37); BUN Creatinine Ratio 8.9; Bilirubin Total 0.6 mg/dL (0.2-1.0); Calcium 9.2 mg/dL (8.5-10.1); Carbon Dioxide 31.7 mmol/L (21.0-32.0); Chloride 104 mmol/L (98-107); Chol HDL Ratio 2.3; Cholesterol 184 mg/dL (<=200); Estimated GFR (African America >60 (>=60 mL/min/1.73m^2); Estimated GFR (Non-African Ame >60 (>=60 mL/min/1.73m^2); Free T3 2.98 pg/mL (2.18-3.98); Globulin 3.1 g/dL; Glucose 106 mg/dL (74-106); HDL Cholesterol 80 mg/dL (40-60); Potassium 3.7 mmol/L (3.5-5.1); Sodium 143 mmol/L (136-145); Thyroid Stimulating Hormone 0.699 uIU/mL (0.358-3.740); Total Protein 7.4 g/dL (6.4-8.2); Triglycerides 39 mg/dL (<=150); VLDL CHOLESTEROL 7.8 mg/dL
[2024-09-28 06:38] LABS: Estradiol 11.2 pg/mL (.); FSH 71.8 mIU/mL (.); Progesterone 0.1 ng/mL (.); Prolactin 10.4 ng/mL (4.8-33.4)
[2024-09-30 13:08] LABS: Insulin 13.5 uIU/mL (2.6-24.9)
== END 2024-09-26 16:26 | disposition home or self-care (01) ==
PROVIDERS: PCP Family Medicine; Visit Provider Family Medicine
DX: Z00.00 Encounter for general adult medical examination without abnormal findings (principal)
CPT/HCPCS: 36415; 80053; 80061; 82670; 83001; 83036; 83525; 83540; 84144; 84146; 84436; 84443; 84481; 85025

== ENCOUNTER 2024-10-06 07:56 | Outpatient (OUT) | payer BC, SELFPAY ==
--- NOTE | 2024-10-06 08:13 | XR_ITS ---
The [address] [address] Patient Name: RAMY MARTINEZ MRN: [id number] date: 1980 Sex: F Assigned Patient Location: [facility] Current Patient Location: [facility] Accession/Order Number: [id number] Exam Date: 10/06/2024 08:54 Report Date: 10/06/2024 08:56 At the request of: SOUMYA ALVARADO DO Procedure: XR chest 2V PA AND LATERAL CHEST: CLINICAL HISTORY: Chronic chest pain and shortness of breath. Pneumonia COMPARISON: CT and chest x-ray 08/25/2024 There is no focal parenchymal consolidation, effusion or pneumothorax. The cardiac, hilar and mediastinal silhouettes are within normal limits. There is no vascular congestion. The visualized bony thorax is intact. A cervical artificial disc is noted. Minor endplate spurring is seen. XR/XR chest 2V IMPRESSION: NO ACUTE CARDIOPULMONARY ABNORMALITY. Impression dictated by: Anayeli Wang M.D. 10/06/2024 8:56 AM Dictation Location: [place] [address] Electronically authenticated by: [id number] Y Date: 10/06/2024 08:56
--- OUTSIDE RECORDS SUMMARY | 2024-10-06 08:17 | XMS_ITS | CCD ---
Author Organization [facility] CliniSyvt Care Team Providers Care Building Economist Name Role Phone ABERRA, JOSEFINA Unavailable Unavailable HOUSE, JUDITH P Unavailable Unavailable HOUSE, JUDITH P Unavailable Unavailable ABERRA, JOSEFINA Unavailable Unavailable HOUSE, JUDITH P Unavailable Unavailable HOUSE, JUDITH P Unavailable Unavailable HOUSE, JUDITH P Unavailable Unavailable LI, NA Unavailable Unavailable LI, NA Unavailable Unavailable KELLEYA, JOSEFINA Unavailable Unavailable MD Yaquelin Perez Primary Care Provider [phone] MD Reddy Dewitt Attending Provider Reddy Dewitt Unavailable Yaquelin Perez Primary Care Physician [phone] CHASITY BOOKER Admitting Unavailable CHASITY BOOKER Attending Unavailable CHRIS ., DR JAMISON Primary Care Unavailable CHASITY BOOKER Consulting Unavailable LUIS ., DR CHASE Admitting Unavailable LUIS ., DR CHASE Attending Unavailable HOY ., DR JAMISON Primary Care Unavailable LUIS ., DR CHASE Consulting Unavailable LUIS ., DR CHASE Admitting Unavailable LUIS ., DR CHASE Attending Unavailable HOY ., DR JAMISON Primary Care Unavailable SAN ANSELMO, DR KRYSTAL Pelaez Consulting Unavailable LUIS ., DR CHASE Consulting Unavailable HOY ., DR JAMISON Admitting Unavailable HOY ., DR JAMISON Attending Unavailable HOY ., DR JAMISON Primary Care Unavailable CHRIS ., DR JAMISON Consulting Unavailable QUINN, DR VALVERDE Admitting Unavailable QUINN, DR VALVERDE Attending Unavailable HOJoan ., DR JAMISON Primary Care Unavailable QUINN, DR VALVERDE Consulting Unavailable CHRIS ., DR JAMISON Primary Care Unavailable CLARA SEN Admitting Unavailable CLARA SEN Attending Unavailable JULY, DR STELLA Paredes Consulting Unavailable CLARA SEN Consulting Unavailable CHRIS ., DR JAMISON Admitting Unavailable HOY ., DR JAMISON Attending Unavailable HOY ., DR JAMISON Primary Care Unavailable DR YAQUELIN PATINO Consulting Unavailable CHASITY BOOKER Admitting Unavailable CHASITY BOOKER Attending Unavailable DR YAQUELIN PATINO Primary Care Unavailable MD Yaquelin Perez Primary Care Provider [phone] MD Arleth Roach Admit Provider MD Arleth Roach Attending Provider Yaquelin Perez MD Primary Care Provider [phone] Tyler Roach Attending Unavailab Tyler Martinez Admitting Unavailab Yaquelin Sheth Primary Care Unavailable DENISSE CHIANG Attending Unavailable YAQUELIN PEREZ Primary Care Unavailable MUOH, JOSEPH H Referring Unavailable YAQUELIN PEREZ Primary Care Unavailable YAQUELIN PEREZ Primary Care Unavailable YAQUELIN PEREZ Primary Care Unavailable DENISSE CHIANG H Admitting Unavailable DENISSE CHIANG Attending Unavailable YAQUELIN PEREZ Primary Care Unavailable YAQUELIN PEREZ Primary Care Unavailable DENISSE CHIANG H Attending Unavailable YAQUELIN PEREZ Primary Care Unavailable MUOH, JOSEPH H Attending Unavailable YAQUELIN PEREZ Primary Care Unavailable DENISSE CHIANG H Attending Unavailable YAQUELIN PEREZ Primary Care Unavailable Unavailable Primary Care Provider UnavailMelissa Garcia Attending Unavaila ble Allergies Allergy Classification Reported Allergen(s) Allergy Type Date of Onset Reaction(s) Facility (2 sources) benzonatate; Translations: [benzonatate] Drug Allergy Eruption of skin (disorder), Swelling (finding), Swelling (morphologic abnormality) [facility] Medications Current Medications Medication Drug Class(es) Dates [...] / thiamine 0.0333 mg/ml / vitamin b12 0.463374 mg/ml / zinc sulfate 0.333 mg/ml oral [...] 12:00am fexofenadine hydrochloride 180 mg oral tablet (8 sources) Histamine-1 Receptor Antagonist Start: 08-28-2022 take 1 tablet by mouth once daily Fexofenadine (Allergy Relief (Fexofenadine)) 180 mg tablet Active 180 MG PO Daily August 28, 2022 12:00am Start: 07-06-2022 Danya Refill s(s) 0 Start Date: 07/06/22 Status: Ordered Repeat number: 1 Start: 07-06-2022 Danya Refill s(s) 0 Start [...] Recovery (only) lamoTRIgine 25 mg oral tablet (9 sources) Mood Stabilizer, Anti-epileptic Agent Start: 09-10-2023 take 2 tablets by mouth once daily Lamictal 25 mg Tab 50 mg = 2 tab(s), Oral, Daily, Refills(s) 0 Start Date: 09/10/23 Status: Ordered Repeat number: 1 LORazepam 0.5 mg oral tablet (4 sources) Benzodiazepine Start: 01-02-2023 take 1 tablet by mouth every twenty-four hours as needed LORazepam (Ativan) 0.5 mg tablet Take 1 tablet (0.5 mg) by mouth once daily as needed for anxiety. 01/02/2023 Active Start: 08-31-2022 take 0.5 mg by mouth once wade y Lorazepam Active 0.5 MG PO Daily August 31, 2022 12:00am meclizine hydrochloride 25 mg oral tablet (1 source) Antiemetic take 1 tablet by mouth once daily as needed for dizziness Meclizine HCl 25 MG TAKE 1 TABLET DAILY NEEDED FOR DIZZINESS ORALLY Oral for 30 Active 24 hr mesalamine 375 mg extended release oral capsule (12 sources) Aminosalicylate Start: 02-01-2024 take 4 capsules by mouth once daily in the morning Apriso 0.375 g oral capsule, extended release 1.5 gm = 4 cap(s), Oral, qAM, # 120 cap(s), Refills(s) 6, Pharmacy: [facility] #[id number], 166, cm, 09/25/23 14:32:00 EDT, Height/Length Dosing, 79, kg, 09/25/23 14:32:00 EDT, Weight Dosing Start Date: 02/01/24 Status: Ordered Quantity: 120.0 Unit: cap(s) Repeat number: 7 Start: 08-28-2022 take 1 capsule by mo ut once daily in the morning Mesalamine (Apriso) 0.375 gram capsule,extended release 24hr Active 0.375 GM PO Every morning August 28, 2022 12:00am Start: 07-06-2022 End: 09-29-2023 take 4 capsules by mouth once daily in the morning Apriso 0.375 g oral capsule, extended release 1.5 gm = 4 cap(s), Oral, qAM, X 90 day(s), # 360 cap(s), Refills(s) 4, [facility]acy: [facility] #[id number], 166, cm, 07/06/22 13:48:00 EST, Height/Length Dosing, 98.7, kg, 07/06/22 13:48:00 EST, Weight Dosing Start Date: 07/06/22 Stop Date: 09/29/23 Status: Ordered mesalamine ER (A priso) 0.375 gram 24 hr capsule Active take 1 capsule by mo [facility] once daily mesalamine ER (Apriso) 0.375 [...] 4 LPM, Keep O2 Sat Above: 92% pantoprazole 40 mg delayed release oral tablet (1 source) Proton Pump Inhibitor Start: 09-24-2024 take 1 tablet by mouth once daily Protonix 40 mg Tab-DR = 1 tab(s), Oral, Daily, Refills(s) 0 Start Date: 09/24/24 Status: Ordered Repeat number: 1 phentermine hydrochloride 37.5 mg oral tablet (1 source) Sympathomimetic Amine Anorectic Start: 09-24-2024 take 1 tablet by mouth once daily phentermine 37.5 mg Tab 37.5 mg = 1 tab(s), Oral, Daily, Refills(s) 0 Start Date: 09/24/24 Status: Ordered Repeat number: 1 promethazine (Phenergan) 6.25 mg in sodium chloride [...] 1 (one) time per week in the therapy manager.. Active riboflavin, selam min B2, (VITAMIN B-2 ORAL) Take by mouth 1 (one) time per week in the therapy manager.. Suspended traZODone hydrochloride 50 mg oral tablet (11 sources) Serotonin Reuptake Inhibitor Start: 08-31-2022 traZODONE 50 mg Tab Refills(s) 0 Start Date: 07/11/23 Status: Ordered Repeat number: 1 Trelegy Ellipta 200 mcg-62.5 mcg-25 mcg/inh inhalation powder (1 source) Start: 09-24-2024 take 1 puff(s) by inhalation once daily Trelegy Ellipta 200 mcg-62.5 mcg-25 mcg/inh inhalation powder 1 puff(s), Inhalation, Daily, Refill(s) 0 Start Date: 09/24/24 Status: Ordered Repeat number: 1 Vcxaykd-Mjpy-Xcagg -Oreg-Capryl (1 source) Start: 08-28-2022 take 1 capsule by mouth once daily Ftteiaw-Mmfw-Ez hlg-Uiky-Yznoij Active 1 CAP PO Daily August 28, [...] venlafaxine 75 mg extended release oral capsule (12 sources) Serotonin and Norepinephrine Reuptake Inhibitor Start: 07-11-2023 venlafaxine 75 mg Cap-ER Refills(s) 0 Start Date: 07/11/23 Status: Ordered Repeat number: 1 Start: 08-31-2022 take 37.5 mg by mouth once marii ly Venlafaxine Active 37.5 MG PO Daily 15 August 31, 2022 12:00am take 1 capsule by [facility] every twenty-four hours in the morning venlafaxine XR (Effexor XR) 75 MG 24 hr capsule Take 75 mg by mouth in the morning. Active Ventolin HFA 90 mcg/inh Aerosol (6 sources) Start: 09-11-2017 take 2 puff(s) by inhalation four times daily Ventolin HFA 90 mcg/inh Aerosol 2 puff(s), Inhalation, QID Shortness of breath or wheezing, Refill(s) 0, Asthma Start Date: 09/11/17 Status: Ordered Repeat number: 1 Start: 09-11-2017 take 2 puff(s) by in halation four times daily Ventolin HFA 90 mcg/inh [...] Refills(s) 0 Start Date: 07/06/22 Status: Ordered magnesium sulfate 225 MG / potassium chloride 188 MG / sodium sulfate 1479 MG Oral Tablet [Sutab] (4 sources) Start: 09-24-2024 take 1 tablet by mouth once Sutab oral tablet See Instructions, 1 EA, Refill(s) 0, NICOLE, Please follow instructions per packaging and physician's handout, [facility] #[id number], 166, cm, 09/24/24 8:26:00 EDT, Height/Length Dosing, 91.5, kg, 09/24/24 8:26:00 EDT, Weight Dosing Start Date: 09/24/24 Status: Ordered Quantity: 1.0 Unit: EA Repeat number: 1 Start: 06-13-2021 take 1 tablet by mouth once Lundy tab oral tablet See Instructions, 24 tab(s), Refill(s) 0, Please follow instructions per packaging and physician's handout. Prior to colonoscopy as instructed by Dr. Booker. Colonoscopy ordered by Dr. Booker., [facility] #[id number], 166, cm, 06/13/21 8:20:00 EST, Height/Length Dosing, 110.5, kg, 06/13/21 8:20:00 EST, Weight Dosing Start Date: 06/13/21 Status: Ordered Start: 06-13-2021 take 1 tablet by mouth once Lundy tab oral tablet See Instructions, 24 tab(s), Refill(s) 0, Please follow instructions per packaging and physician's handout. Prior to colonoscopy as instructed by Dr. Booker. Colonoscopy ordered by Dr. Booker., [facility]/pharmacy #[id number], 166, cm, 06/13/21 8:20:00 EST, Rupal... Start Date: 06/13/21 Status: Ordered 2 ml metoclopramide 5 mg/ml [...] 26 cap(s), Refills(s) 0, Pharmacy: [facility] #[id number], 166, cm, 07/11/23 8:09:00 EST, Height/Length Dosing, 82.6, kg, 07/11/23 8:09:00 EST, Weight Dosing Start Date: 07/16/23 Stop Date: 01/12/24 Status: Ordered Problems Active Problems Problem Classification Problem Date Documented Da te Episodic/Chronic Anal and rectal conditions (2 sources) Rectal prolapse; Translations: [Rectal prolapse] Onset: 09-25-2023 Episodic Anxiety disorders (2 sources) Anxiety; Translations: [Anxiety disorder, unspecified] 08-29-2022 Chronic Asthma (7 sources) Asthma without status asthmaticus; Translations: [Asthma, unspecified, unspecified status] Onset: 02-28-2008 09-06-2017 Chronic Comment on above: no problems Attention-deficit, conduct, and disruptive behavior disorders (1 source) Attention deficit hyperactivity disorder; Translations: [Attention-deficit hyperactivity disorder, unspecified type] 08-29-2022 Chronic Attention-deficit, conduct, and disruptive behavior disorders (1 source) Attention-deficit hyperactivity disorder, unspecified type; Translations: [Attention deficit disorder with hyperactivity] 08-31-2022 Chronic Biliary tract disease (12 sources) Acute cholecystitis; Translations: [Common bile duct calculus] 09-06-2017 Episodic Diabetes mellitus without complication (6 sources) Diabetes mellitus 09-06-2017 Chronic Diseases of [...] 02-28-2008 Chronic Other aftercare (1 source) Other mcc (current) drug therapy; Translations: [OTH LONGTERM CURRENT DRUG THERAPY] Onset: 08-30-2022 Episodic Other gastrointestinal disorders (1 source) Constipation, unspecified; Translations: [Constipation, unspecified] Onset: 09-24-2024 Episodic Other hereditary and degenerative nervous system [...] Translations: [Arthropathy, unspecified] Onset: 11-28-2023 Chronic Other non-traumatic joint disorders (1 source) Joint pain; Translations: [Pain in unspecified joint] Onset: 09-24-2024 Episodic Other nutritional; endocrine; and metabolic disorders (1 source) Obesity; Translations: [Obesity, unspecified] Onset: 02-28-2008 Chronic Other nutritional; endocrine; and metabolic disorders (6 sources) Body mass index 30+ - obesity [...] trachea, bronchus and lung; Translations: [FAM HX MALFRANCK NEOPLSM TRACH BRON LNG] Onset: 02-02-2022 Episodic Residual codes; unclassified (1 source) Family history of malignant neoplasm of other organs or systems; Translations: [FAM HX MALIG NEOPLASM OTH ORGN/SYS] Onset: 02-02-2022 Episodic Residual codes; unclassified (10 sources) Family history of cancer Onset: 02-03-2022 07-09-2023 Episodic Spondylosis; intervertebral disc disorders; other back problems (1 source) Radiculopathy, lumbar region Onset: 08-30-2021 Resolved: 08-30-2021 Episodic Unclassified (1 source) Ulcerative (chronic) pancolitis with other complication; Translations: [Ulcerative (chronic) pancolitis with other complication] Onset: 09-03-2017 Unclassified (1 source) Follow-up; Translations: [Follow-up] Onset: 06-11-2017 Results Test Name Value Interpretation Reference Range Facility Ambulatory Visit Summaryon 0 09-24-2024 Ambulatory Visit Summary Ambulatory Visit Summary RAMY MARTINEZ :1980 Visit Date:09/24/2024 Ambulatory Visit Instructions Your Diagnosis Chronic pancolonic ulcerative colitis Constipation Joint ache Your Care Team Attending Physician - Miguel HAQUE, Melissa Talavera Primary Care Physician - Yaquelin Perez MD This Is Your Medications List Contact prescribing physician if questions or concerns albuterol (Ventolin HFA 90 mcg/inh Aerosol) fexofenadine (Danya) fluticasone/umeclidini um/vilanterol (Trelegy Ellipta 200 mcg-62.5 mcg-25 mcg/inh inhalation [...] you for choosing us for your care. Fe Osullivan [facility] Gastroenterology Office/Clin ic Noteon 09-24-2024 Gastroenterology Office/Clinic Note Gastroenterology Office/Clinic Note Chief Complaint Change in bowel habits [...] Rectal prolapse) referral placed to colorectal at [facility] Colonoscopy 09/10/23: Impression and Plan 1. Small [...] inflammation on colonoscopy in the future, can disc (more content not included)... Normal [facility] Comment on above: Result Comment: Elec tronically Signed By: Miguel HAQUE, Melissa Talavera\.br\Date and Time Signed: 09/24/24 08:46 EDT\.br\Electronically Co-Signed By: Pamela Millan MA\.br\Date and Time Co-Signed: 09/24/24 08:39 EDT IGP,APTIMA HPV,AGE GDLNon AGE GDLN ACOG TESTING Note . [facility] Comment on above: TESTS RESULT FLAG UN ITS REF RANGE LAB Clinician Provided Cytology Information Source.............Cervix;Endocervix No. of containers..01 ThinPrep Vial Age Algo ACOG Amirah... - FLAG LEGEND: L-Low Normal,H-High Normal,LL-Alert Low,HH-Alert High <-Panic Low,>-Panic High,A-Abnormal,AA-Critical Abnormal Performed at: 01 =[address] [place] [address] Zainab Mckeon MD, HPV APTIMA Negative Negative [facility] Comment on above: This nucleic acid am plification test detects fourteen high- risk HPV types (16,18,31,33,35,39,45,51,52,56,58,59,66,68) without differentiation. Performed at: = - [address], [place] [id number] Line Manager: Zainab Mckeon MD, Phone: [phone] Performed at: - [address], [place] [id number] Line Manager: Zainab Mckeon MD, Phone: [phone] IGP, APTIMA HPV, RFX 16/18,45 Note . [facility] Comment on above: TESTS RESULT FLAG UN ITS REF RANGE LAB DIAGNOSIS: 02 NEGATIVE FOR INTRAEPITHELIAL LESION OR MALIGNANCY. Specimen adequacy: 02 Satisfactory for evaluation. No endocervical component is identified. Performed by: Charles Cabrera Wellness Manager (ASCP) . 02 Note: Note 02 The [...] <-Panic Low,>-Panic High,A-Abnormal,AA-Critical Abnormal Performed at: [address] [facility] [address] [address] Zainab Mckeon MD, BRUSH-SPATULA CERVIX ENDOCERVIX DATAllegro Glucose Test strip manual (B ld) [Mass/Vol]on 12-24-2023 Glucose [Mass/Vol] 99 mg/dL 74 - 99 mg/dL [facility] Interpretation and review of laboratory results Normal [facility] Glucose [Mass/Vol] 99 mg/dL Normal 74-99 [place] Comment on above: Performed By: #### 2 341-6 #### SABRINA GERMAN ([id number]) [facility] ([facility]) [address] [place] [address] HCG ( test) IA.rapi d Ql (U)Ordered By: Josseline Spring on 12-24-2023 HCG ( test) Ql (U) Negative NEGATIVE [facility] Interpretation and review of laboratory results Normal [facility] HCG ( test) IA.rapi d Ql (U)on 12-24-2023 HCG ( test) Ql (U) Negative Normal NEGATIVE [facility] Comment on above: Performed By: #### 8 0384-1 #### SABRINA GERMAN ([id number]) [facility] ([facility]) [address] [place] [address] Basic metabolic 2000 panelon 12-13-2023 Anion gap [Moles/Vol] 12 mmol/L Normal 10-20 [facility] Comment on above: Performed By: #### 3 084-1 #### KADE LORENZ L ([id number]) [facility] ([facility]) [address] [place] [address] Calcium [Mass/Vol] 10.2 mg/dL Normal 8.6-10.3 [facility] Comment on above: Performed By: #### 3 084-1 #### KADE TIPTONER L ([id number]) [facility] ([facility]) [address] [place] [address] Chloride [Moles/Vol] 104 mmol/L Normal 98-107 [facility] Comment on above: Performed By: #### 3 084-1 #### KADE TIPTONER L ([id number]) [facility] ([facility]) [id number] [place] [address] CO2 [Moles/Vol] 30 mmol/L Normal 21-32 [facility] Comment on above: Performed By: #### 3 084-1 #### KADE LORENZ L ([id number]) [facility] ([facility]) [address] [place] [address] Creatinine [Mass/Vol] 0.66 mg/dL Normal 0.50-1.05 [facility] Comment on above: Performed By: #### 3 084-1 #### KADE TIPTONER L ([id number]) [facility] ([facility]) [id number] [place] [address] GFR/1.73 sq M.predicted MDRD (S/P/Bld) [Vol rate/Area] mL/min/{1.73_m2} Normal >60 [facility] Comment on above: Result Comment: Calc ulations of estimated GFR are performed using the 2020 CKD-EPI Study Refit equation without the race variable for the IDMS-Traceable creatinine methods. https://jasn.asnjournals.org/content/early//ASN.13538 88272 Performed By: #### 3 084-1 #### KADE BAILEYTZESTELLE L ([id number]) [facility] ([facility]) [id number] [place] [address] Glucose [Mass/Vol] 117 mg/dL High 74-99 [facility] Comment on above: Performed By: #### 3 084-1 #### KADE BAILEYTZER L ([id number]) [facility] ([facility]) [address] [place] [address] Potassium [Moles/Vol] 4.9 mmol/L Normal 3.5-5.3 [facility] Comment on above: Performed By: #### 3 084-1 #### KADE BOURNEMOTZER L ([id number]) [facility] ([facility]) [address] [place] [address] Sodium [Moles/Vol] 141 mmol/L Normal 136-145 [facility] Comment on above: Performed By: #### 3 084-1 #### KADE BOURNEMOTZER L ([id number]) [facility] ([facility]) [address] [place] [address] Urea nitrogen [Mass/Vol] 7 mg/dL Normal 6-23 [facility] Comment on above: Performed By: #### 3 084-1 #### KADE TIPTONER L ([id number]) [facility] ([facility]) [address] [place] [address] Beta 2 glycoprotein 1 Ab IgA and IgG and IgM panel (S)on 11-28-2023 Beta 2 glycoprotein 1 IgA Qn (S) 34.2 U/mL High <20.0 [facility] Comment on above: Result Comment: Elev [...] #### 3 084-1 #### KADE BOURNEMOTZER L ([id number]) [facility] ([facility]) [id number] [place] [address] Beta 2 glycoprotein 1 IgG Qn (S) 2.6 U/mL Normal <20.0 [facility] Comment on above: Result Comment: Elev ated levels of IgG anti-Beta 2 Glycoprotein-I on 2 occasions at least 12 weeks apart are laboratory criteria for anti-phospholipid syndrome according to an international consensus (J Thromb Haemost 2006 4:295). Performed By: #### 3 084-1 #### KADE Sandra ([id number]) [facility] ([facility]) [address] [place] [address] Beta 2 glycoprotein 1 IgM Qn (S) 27.5 U/mL High <20.0 [facility] Comment on above: Result Comment: Elev [...] By: #### 3 084-1 #### KADE Sandra ([id number]) [facility] ([facility]) [address] [place] [address] C reactive proteinon CRP [Mass/Vol] mg/L Normal <1.00 [facility] Comment on above: Performed By: #### 1 988-5 #### KADE Sandra ([id number]) [facility] ([facility]) [address] [place] [address] Calcidiolon 11-28-2023 25-hydroxyvitamin D3 [Mass/Vol] 65 ng/mL Normal 30-100 [facility] Comment on above: Order Comment: Defic iency: < 20 ng/ml Insufficiency: 20-29 ng/ml Sufficiency: 30-100 ng/ml This assay accurately quantifies the sum of Vitamin D3, 25-Hydroxy and Vitamin D2,25-Hydroxy. Performed By: #### 1 989-3 #### KADE Sandra ([id number]) [facility] ([facility]) [address] [place] [address] Cardiolipin Ab IA Qn (S)on 0 11-28-2023 Cardiolipin IgA Qn 39.0 APL U/mL High <20.0 [facility] Comment on above: Result Comment: Elev ated levels of IgA anti-cardiolipin have not been included in the laboratory criteria for anti-phospholipid syndrome according to an international consensus (J Thromb Haemost 2006 4:295). It may be helpful in identifying subgroups of patients at risk for specific clinical manifestations of anti-phospholipid syndrome. Performed By: #### 3 180-7 #### KADE Sandra ([id number]) [facility] ([facility]) [address] [place] [address] Cardiolipin IgG IA Qn (S) 2.4 GPL U/mL Normal <20.0 [facility] Comment on above: Result Comment: Elev ated levels of IgG anti-cardiolipin on 2 occasions at least 12 weeks apart are laboratory criteria for anti-phospholipid syndrome according to an international consensus (J Thromb Haemost 2006 4:295). Performed By: #### 3 180-7 #### KADE Sandra ([id number]) [facility] ([facility]) [address] [place] [address] Cardiolipin IgM IA Qn (S) 27.7 MPL U/mL High <20.0 [facility] Comment on above: Result Comment: Elev [...] By: #### 3 180-7 #### KADE Sandra ([id number]) [facility] ([facility]) [id number] [place] [address] Complement C3on 11-28-2023 Complement C3 [Mass/Vol] 101 mg/dL Normal 87-200 [facility] Comment on above: Performed By: #### 4 485-9 #### KADE Sandra ([id number]) [facility] ([facility]) [id number] [place] [address] Complement C4on 11-28-2023 Complement C4 [Mass/Vol] 14 mg/dL Normal 10-50 [facility] Comment on above: Performed By: #### 4 498-2 #### KADE Sandra ([id number]) [facility] ([facility]) [address] [place] [address]50 Cyclic citrullinated peptide Ab.IgGon 11-28-2023 Cyclic citrullinated peptide IgG Qn <1 Normal <3 [facility] Comment on above: Order Comment: THE T [...] By: #### 3 3935-8 #### KADE Sandra ([id number]) [facility] ([facility]) [address] [place] [address] ESR Westergren method (Bld) [Velocity]on 11-28-2023 ESR (Bld) [Velocity] mm/h Normal 0-20 [facility] Comment on above: Performed By: #### 4 537-7 #### KADE Sandra ([id number]) [facility] ([facility]) [address] [place] [address] Extractable nuclear Ab panel (S)on 11-28-2023 Centromere protein B Ab Qn (S) <0.2 Normal <1.0 [facility] Comment on above: Result Comment: < 1. 0 = NEGATIVE >=1.0 = POSITIVE Performed By: #### 3 084-1 #### KADE Sandra ([id number]) [facility] [facility] ([facility]) [address] [place] [address] 93481 Chromatin Ab Qn <0.2 Normal <1.0 [facility] Comment on above: Result Comment: < 1. 0 = NEGATIVE >=1.0 = POSITIVE Performed By: #### 3 084-1 #### KADE Sandra ([id number]) [facility] ([facility]) [address] [place] [address] 84414 DNA double strand Ab Qn (S) 1.0 [IU]/mL Normal <5.0 [facility] Comment on above: Result Comment: NEGA TIVE: <= 4 IU/ML EQUIVOCAL: 5- 9 IU/ML POSITIVE: >=10 IU/ML Performed By: #### 3 084-1 #### KADE Sandra ([id number]) [facility] ([facility]) [address] [place] [address] 36312 Meryl-1 extractable nuclear Ab IA Ql (S) <0.2 Normal <1.0 [facility] Comment on above: Result Comment: < 1. 0 = NEGATIVE >=1.0 = POSITIVE Performed By: #### 3 084-1 #### KADE Sandra ([id number]) [facility] ([facility]) [address] [place] [address] 73376 Ribonucleoprotein extractable nuclear Ab IA Qn (S) 0.6 AI Normal <1.0 [facility] Comment on above: Result Comment: < 1. 0 = NEGATIVE >=1.0 = POSITIVE Performed By: #### 3 084-1 #### KADE Sandra ([id number]) [facility] ([facility]) [address] [place] [address] 70691 Ribosomal P Ab Qn (S) <0.2 Normal <1.0 [facility] Comment on above: Result Comment: < 1. 0 = NEGATIVE >=1.0 = POSITIVE Performed By: #### 3 084-1 #### KADE Sandra ([id number]) [facility] ([facility]) [address] [place] [address] 67909 SCL-70 extractable nuclear Ab IA Ql (S) <0.2 Normal <1.0 [facility] Comment on above: Result Comment: < 1. 0 = NEGATIVE >=1.0 = POSITIVE Performed By: #### 3 084-1 #### KADE Sandra ([id number]) [facility] ([facility]) [address] [place] [address] 17424 Sjogrens syndrome-A extractable nuclear Ab IA Qn (S) <0.2 Normal <1.0 [facility] Comment on above: Result Comment: < 1. 0 = NEGATIVE >=1.0 = POSITIVE Performed By: #### 3 084-1 #### KADE Sandra ([id number]) [facility] ([facility]) [address] [place] [address] 09885 Sjogrens syndrome-B extractable nuclear Ab IA Qn (S) <0.2 Normal <1.0 [facility] Comment on above: Result Comment: < 1. 0 = NEGATIVE >=1.0 = POSITIVE Performed By: #### 3 084-1 #### KADE Sandra ([id number]) [facility] ([facility]) [address] [place] [address] 08380 Dias extractable nuclear Ab IA Qn (S) <0.2 Normal <1.0 [facility] Comment on above: Result Comment: < 1. 0 = NEGATIVE >=1.0 = POSITIVE Performed By: #### 3 084-1 #### KADE Sandra ([id number]) [facility] ([facility]) [address] [place] [address] 79070 Dias extractable nuclear Ab+Ribonucleoprotein extractable nuclear Ab IA Ql (S) <0.2 Normal <1.0 [facility] Comment on above: Result Comment: < 1. 0 = NEGATIVE >=1.0 = POSITIVE Performed By: #### 3 084-1 #### KADE Sandra ([id number]) [facility] ([facility]) [address] [place] [address] 88870 Nuclear Abon 11-28-2023 Nuclear Ab Hep2 substrate Ql (S) Negative Normal Negative [facility] Comment on above: Result Comment: The Antinuclear Antibody (JERZY) test was performed using indirect immunofluorescence assay with HEp-2 cells slide. Performed By: #### 3 084-1 #### KADE Sandra ([id number]) [facility] ([facility]) [id number] [place] [address] 25542 Proteinon 11-28-2023 Protein [Mass/Vol] 6.8 g/dL Normal 6.4-8.2 [facility] Comment on above: Performed By: #### 2 885-2 #### KADE Sandra ([id number]) [facility] ([facility]) [id number] [place] [address] 40919 Rheumatoid factoron 11-28-19 24 Rheumatoid factor Nephelometry Qn (S) <10 Normal 0-15 [facility] Comment on above: Performed By: #### 1 5205-8 #### KADE Sadnra ([id number]) [facility] ([facility]) [address] [place] [address] 40965 SERUM PROTEIN ELECTROPHORESI S + IMMUNOFIXATIONon 11-28-2023 Albumin [Mass/Vol] 4.4 g/dL Normal 3.4-5.0 [facility] Comment on above: Performed By: #### 3 084-1 #### KADE Sandra ([id number]) [facility] ([facility]) [address] [place] [address] 03164 ALPHA 1 GLOBULIN 0.3 g/dL Normal 0.2-0.6 [facility] Comment on above: Performed By: #### 3 084-1 #### KADE Sandra ([id number]) [facility] ([facility]) [address] [place] [address] 06448 ALPHA 2 GLOBULIN 0.5 g/dL Normal 0.4-1.1 [facility] Comment on above: Performed By: #### 3 084-1 #### KADE Sandra ([id number]) [facility] ([facility]) [address] [place] [address] 16219 BETA GLOBULIN 0.6 g/dL Normal 0.5-1.2 [facility] Comment on above: Performed By: #### 3 084-1 #### KADE Sandra ([id number]) [facility] ([facility]) [address] [place] [address] 17536 GAMMA GLOBULIN 1.0 g/dL Normal 0.5-1.4 [facility] Comment on above: Performed By: #### 3 084-1 #### KADE Sandra ([id number]) [facility] ([facility]) [address] [place] [address] 06176 IMMUNOFIXATION COMMENT Detected Normal [facility] Comment on above: Performed By: #### 3 084-1 #### KADE Sandra ([id number]) [facility] ([facility]) [address] [place], [place] [id number] PATH REVIEW - SERUM IMMUNOFIXATION SEE COMMENT [facility] Comment on above: Result Comment: Revi ewed and approved by ALICE MORALES on 12/03/23 at 8:41 PM. Performed By: #### 3 084-1 #### KADE Sandra ([id number]) [facility] ([facility]) [address] [place], [place] [id number] PATH REVIEW-SERUM PROTEIN ELECTROPHORESIS SEE COMMENT [facility] Comment on above: Result Comment: Revi ewed and approved by ALICE MORALES on 12/03/23 at 8:41 PM. Performed By: #### 3 084-1 #### KADE Sandra ([id number]) [facility] ([facility]) [address] [place] [address] 26832 PROTEIN ELECTROPHORESIS COMMENT Normal. Normal [facility] Comment on above: Performed By: #### 3 084-1 #### KADE Sandra ([id number]) [facility] ([facility]) [address] [place] [address] 84409 Urateon 11-28-2023 Urate [Mass/Vol] 1.8 mg/dL Low 2.3-6.7 [facility] Comment on above: Result Comment: Linda puncture immediately after or during the administration of Metamizole may lead to falsely low results. Testing should be performed immediately prior to Metamizole dosing. Performed By: #### 3 084-1 #### KADE Sandra ([id number]) [facility] ([facility]) [address] [place] [address] XR HAND 3+ VIEWS BILATERALon 11-28-2023 XR HAND 3+ VIEWS BILATERAL Interpreted By: Daniel Martins, STUDY: XR HAND 3+ VIEWS BILATERAL; ; 11/28/2023 3:12 pm INDICATION: Signs/Symptoms:r/o erosiosn or calcinosis. COMPARISON: None. ACCESSION NUMBER(S): [id number] ORDERING CLINICIAN: JOSEPH SORIANO FINDINGS: Bilateral hands, three views of each There is no fracture. There is no dislocation. There are no degenerative changes. There is no erosion or chondrocalcinosis. There is no soft tissue abnormality seen. IMPRESSION: Normal radiographs of the hands MACRO: None Signed by: Daniel Martins 11/29/2023 8:41 PM Dictation workstation: [id number] [facility] XR SACROILIAC JOINTS 3+ VIEW Son 11-28-2023 XR SACROILIAC JOINTS 3+ VIEWS Interpreted By: Daniel Martins, STUDY: XR SACROILIAC JOINTS 3+ VIEWS; ; 11/28/2023 3:12 pm INDICATION: Signs/Symptoms:r/o erosions or sacroilitis. COMPARISON: None. ACCESSION NUMBER(S): [id number] ORDERING CLINICIAN: JOSEPH SORIANO FINDINGS: SI joints, three views There is no sclerosis or erosions in the SI joints. No degenerative change seen. There is no fracture. There is no dislocation. There is no lytic or sclerotic lesion. There is no soft tissue abnormality seen. IMPRESSION: Normal radiographs of the sacroiliac joints MACRO: None Signed by: Daniel Martins 11/29/2023 8:41 PM Dictation workstation: [id number] [facility] Anoscopyon 10-09-2023 Denisse Chiang MD 10/09/2023 2:20 PM Anoscopy Date/Time: 10/09/2023 1:37 PM Performed by: Denisse Chiang MD Authorized by: Denisse Chiang MD Consent: Consent obtained: Verbal Consent given by: Patient Procedure details: Internal hemorrhoids: yes (Right and left posterior, large, non-bleeding and non-prolapsing on exam today) Post-procedure details: Procedure completion: Tolerated [facility] Work Phone: [facility] Work Phone: CHEMISTRYOrdered By: SYSTEM SYSTEM on 07-11-2023 25-hydroxyvitamin [...] [facility] Comment on above: Result Comment: Lina disla with slide review Erythrocyte distribution width (RBC) [...] on 08-29-2022 Cholesterol [Mass/Vol] 133 mg/dL 140-200 [facility] Comment on above: Chol less than 200 m g/dl low riskChol 201-239 mg/dl borderline riskChol 240 mg/dl and greater high risk Cholesterol in LDL Calc [Mas s/Vol]Ordered By: Tyler Roach on 08-29-2022 Cholesterol in LDL [Mass/Vol] 78 mg/dL 0-100 [facility] Comment on above: LDL ATP III CLASSIFI CATIONLDL less than 100 mg/dL OptimalLDL 100-129 mg/dL Near or above optimalLDL 130-159 mg/dL Borderline highLDL 160-189 mg/dL HighLDL greater than 189 mg/dL Very high Cholesterol in VLDL Calc [Ma ss/Vol]Ordered By: Tyler Roach on 08-29-2022 Cholesterol in VLDL [Mass/Vol] 12 mg/dL [facility] Serum or plasma high density lipoprotein (HDL) cholesterol measurementOrdered By: Tyler Roach on 08-29-2022 Cholesterol in HDL [Mass/Vol] 42 mg/dL 35-85 [facility] Comment on above: HDL CHOL ATP-III CLA SSIFICATION Cardiovascular RiskHDL > or equal to 60 mg/dL LOWHDL < 40 mg/dL HIGH Serum or plasma total choles terol/high density lipoprotein (HDL) cholesterol mass ratOrdered By: Tyler Roach on 08-29-2022 Cholesterol.total/Chol esterol in HDL [Mass ratio] 3.2 {ratio} <5.0 [facility] Thyrotropin [Units/volume] i n Serum or PlasmaOrdered By: Tyler Roach on 08-29-2022 TSH Qn 0.19 m[IU]/L 0.45-5.33 [facility] Thyroxine (T4) free [Mass/vo lume] in Serum or PlasmaOrdered By: Tyler Roach on 08-29-2022 Free T4 [Mass/Vol] 0.88 ng/dL 0.61-1.12 [facility] Triglyceride [Mass/volume] i n Serum or PlasmaOrdered By: Tyler Roach on 08-29-2022 Triglyceride [Mass/Vol] 63 mg/dL 0-149 [facility] Comment on above: TRIG ATP III CLASSIF ICATIONTRIG less than 150 mg/dL NormalTRIG 150-199 mg/dL Borderline highTRIG 200-500 mg/dL High TRIG greater than 500 mg/dL Very highStandard traceable to the Center for Disease Conrtrol and Prevention (CDC) test method. Vitamin D+Metabolites [Mass/ volume] in Serum or PlasmaOrdered By: Tyler Roach on 08-29-2022 Vitamin D+Metabolites [Mass/Vol] 16.0 ng/mL 30-100 [facility] Comment on above: VITAMIN D STATUS 25( [place])VITAMIN D RANGE (ng/mL) Deficient <20 Insufficient 20 to <30Sufficient 30 to 100Reference: John CHRISTIANSON,Pasha PASTOR, Benson LOYD, et al. Evaluation,treatment, and prevention of vitamin D deficiency; an Endocrine Society clinical practice guideline. JCEM. 2010; 96(7):1911-30. ACETAMINOPHENon 08-28-2022 Acetaminophen [Mass/Vol] ug/mL Critically low 10.0-30.0 [facility] Comment on above: Performed By: #### S ALYC, ACET #### [facility] [address] [place] [address] Dr. Deepak August AMYLASEon 08-28-2022 Amylase [Catalytic activity/Vol] 33 U/L Normal 25-115 [facility] Comment on above: Performed By: #### B MP, LIVER, LIPA, SHERRI #### [facility] [address] [place] [address] Dr. Deepak August CBC AUTO DIFFon 08-28-2022 BASO # 0.1 103/ul Normal 0.0-0.1 [facility] Comment on above: Performed By: #### B MP, LIVER, LIPA, SHERRI #### [facility] [address] [place] [address] Dr. Deepak August Basophils/100 WBC (Bld) 0.5 % Normal 0.2-2.0 [facility] Comment on above: Performed By: #### B MP, LIVER, LIPA, SHERRI #### [facility] [address] [place] [address] Dr. Deepak August EO # 0.1 103/ul Normal 0.0-0.7 [facility] Comment on above: Performed By: #### B MP, LIVER, LIPA, SHERRI #### [facility] [address] [place] [address] Dr. Deepak August Eosinophils/100 WBC (Bld) 1.1 % Normal 0.9-7.0 [facility] Comment on above: Performed By: #### B MP, LIVER, LIPA, SHERRI #### [facility] [address] [place] [address] Dr. Deepak August Erythrocyte distribution width (RBC) [Ratio] 13.3 % Normal 11.0-15.0 [facility] Comment on above: Performed By: #### B MP, LIVER, LIPA, SHERRI #### [facility] [address] [place] [address] Dr. Deepak August Hematocrit (Bld) [Volume fraction] 43.5 % Normal 36.0-48.0 [facility] Comment on above: Performed By: #### B MP, LIVER, LIPA, SHERRI #### [facility] [address] [place] [address] Dr. Deepak August Hemoglobin (Bld) [Mass/Vol] 14.7 g/dL Normal 12.0-16.0 [facility] Comment on above: Performed By: #### B MP, LIVER, LIPA, SHERRI #### [facility] [address] [place] [address] Dr. Deepak August IG # 0.04 10e3/ul Critically high 0.00-0.03 [facility] Comment on above: Performed By: #### B MP, LIVER, LIPA, SHERRI #### [facility] [address] [place] [address] Dr. Deepak August IG % 0.3 % Normal 0.0-0.5 [facility] Comment on above: Performed By: #### B MP, LIVER, LIPA, SHERRI #### [facility] [address] [place] [address] Dr. Deepak August LYMPH # 1.4 103/ul Normal 1.2-3.8 [facility] Comment on above: Performed By: #### B MP, LIVER, LIPA, SHERRI #### [facility] [address] [place] [address] Dr. Deepak August Lymphocytes/100 WBC (Bld) 11.2 % Critically low 20.5-60.0 [facility] Comment on above: Performed By: #### B MP, LIVER, LIPA, SHERRI #### [facility] [address] [place] [address] Dr. Deepak August MANUAL DIFF REQ NO Normal [facility] Comment on above: Performed By: #### B MP, LIVER, LIPA, SHERRI #### [facility] [address] [place] [address] Dr. Deepak August MCH (RBC) [Entitic mass] 29.5 pg Normal 26.7-34.0 [facility] Comment on above: Performed By: #### B MP, LIVER, LIPA, SHERRI #### [facility] [address] [place] [address] Dr. Deepak August MCHC (RBC) [Mass/Vol] 33.8 g/dL Normal 29.9-35.2 [facility] Comment on above: Performed By: #### B MP, LIVER, LIPA, SHERRI #### [facility] [address] [place] [address] Dr. Deepak August MCV (RBC) [Entitic vol] 87.2 fL Normal 81.0-99.0 [facility] Comment on above: Performed By: #### B MP, LIVER, LIPA, SHERRI #### [facility] [address] [place] [address] Dr. Deepak August MONO # 0.7 103/ul Normal 0.3-0.8 [facility] Comment on above: Performed By: #### B MP, LIVER, LIPA, SHERRI #### [facility] [address] [place] [address] Dr. Deepak August Monocytes/100 WBC (Bld) 5.8 % Normal 1.7-12.0 [facility] Comment on above: Performed By: #### B MP, LIVER, LIPA, SHERRI #### [facility] [address] [place] [address] Dr. Deepak August NEUT # 10.0 103/ul Critically high 1.4-6.5 [facility] Comment on above: Performed By: #### B MP, LIVER, LIPA, SHERRI #### [facility] [address] [place] [address] Dr. Deepak August Neutrophils/100 WBC (Bld) 81.1 % Critically high 43.0-75.0 [facility] Comment on above: Performed By: #### B MP, LIVER, LIPA, SHERRI #### [facility] [address] [place] [address] Dr. Deepak August Platelet mean volume (Bld) [Entitic vol] 10.1 fL Normal 9.5-13.5 [facility] Comment on above: Performed By: #### B MP, LIVER, LIPA, SHERRI #### [facility] [address] [address] [address] Deepak August PLT 390 103/ul Normal 150-450 [facility] Comment on above: Performed By: #### B MP, LIVER, LIPA, SHERRI #### [facility] [address] [place] [address] Dr. Deepak August RBC 4.99 106/ul Normal 4.20-5.40 [facility] Comment on above: Performed By: #### B MP, LIVER, LIPA, SHERRI #### [facility] [address] [place] [address] Dr. Deepak August WBC 12.4 103/ul Critically high 4.0-11.0 [facility] Comment on above: Performed By: #### B MP, LIVER, LIPA, SHERRI #### [facility] [address] [place] [address] Dr. Deepak August DRUG SCREEN RAPID (URINE)on 08-28-2022 AMP Negative Normal NEGATIVE [facility] Comment on above: Performed By: #### B MP, LIVER, LIPA, SHERRI #### [facility] [address] [place] [address] Dr. Deepak August BAR Negative Normal NEGATIVE [facility] Comment on above: Performed By: #### B MP, LIVER, LIPA, SHERRI #### [facility] [address] [place] [address] Dr. Deepak August BUP Negative Normal NEGATIVE [facility] Comment on above: Performed By: #### B MP, LIVER, LIPA, SHERRI #### [facility] [address] [place] [address] Dr. Deepak August BZO Negative Normal NEGATIVE [facility] Comment on above: Performed By: #### B MP, LIVER, LIPA, SHERRI #### [facility] [address] [place] [address] Dr. Deepak August VERA Negative Normal NEGATIVE [facility] Comment on above: Performed By: #### B MP, LIVER, LIPA, SHERRI #### [facility] [address] [place] [address] Dr. Deepak August CUT-OFFS SEE BELOW Normal [facility] Comment on above: Result Comment: AMP [...] #### B MP, LIVER, LIPA, SHERRI #### [facility] [address] [place] [address] Dr. Deepak August DRUG CUT HEADER DRUG CLASS TEST SYST EM CUT-OFF CONCENTRATIONS ARE FOLLOWS: Normal [facility] Comment on above: Performed By: #### B MP, LIVER, LIPA, SHERRI #### [facility] [address] [place] [address] Dr. Deepak August mAMP Negative Normal NEGATIVE [facility] Comment on above: Performed By: #### B MP, LIVER, LIPA, SHERRI #### [facility] [address] [place] [address] Dr. Deepak August MTD Negative Normal NEGATIVE [facility] Comment on above: Performed By: #### B MP, LIVER, LIPA, SHERRI #### [facility] [address] [place] [address] Dr. Deepak August OPI Negative Normal NEGATIVE [facility] Comment on above: Performed By: #### B MP, LIVER, LIPA, SHERRI #### [facility] [address] [address] [address] Deepak August OXY Negative Normal NEGATIVE [facility] Comment on above: Performed By: #### B MP, LIVER, LIPA, SHERRI #### [facility] [address] [place] [address] Dr. Deepak August PCP Negative Normal NEGATIVE [facility] Comment on above: Performed By: #### B MP, LIVER, LIPA, SHERRI #### [facility] [address] [place] [address] Dr. Deepak August PPX Negative Normal NEGATIVE [facility] Comment on above: Performed By: #### B MP, LIVER, LIPA, SHERRI #### [facility] [address] [place] [address] Dr. Deepak August TCA Positive Abnormal NEGATIVE [facility] Comment on above: Performed By: #### B MP, LIVER, LIPA, SHERRI #### [facility] [address] [place] [address] Dr. Deepak August THC Positive Abnormal NEGATIVE [facility] Comment on above: Performed By: #### B MP, LIVER, LIPA, SHERRI #### [facility] [address] [place] [address] Dr. Deepak August ER URINE PROFILEon 3 Bilirubin Ql (U) Negative Normal NEGATIVE [facility] Comment on above: Performed By: #### B MP, LIVER, LIPA, SHERRI #### [facility] [address] [place] [address] Dr. Deepak August Clarity (U) CLEAR Normal CLEAR [facility] Comment on above: Performed By: #### B MP, LIVER, LIPA, SHERRI #### [facility] [address] [place] [address] Dr. Deepak August Color (U) YELLOW Normal YELLOW [facility] Comment on above: Performed By: #### B MP, LIVER, LIPA, SHERRI #### [facility] [address] [place] [address] Dr. Deepak August ERUAHD A micrscopic examination will be performed if indicated. Normal [facility] Comment on above: Performed By: #### B MP, LIVER, LIPA, SHERRI #### [facility] [address] [place] [address] Dr. Deepak August Glucose Ql (U) Negative Normal NEGATIVE [facility] Comment on above: Performed By: #### B MP, LIVER, LIPA, SHERRI #### [facility] [address] [place] [address] Dr. Deepak August Hemoglobin Ql (U) Negative Normal NEGATIVE [facility] Comment on above: Performed By: #### B MP, LIVER, LIPA, SHERRI #### [facility] [address] [address] [address] Deepak August Ketones Ql (U) 15 mg/dl Abnormal NEGATIVE [facility] Comment on above: Performed By: #### B MP, LIVER, LIPA, SHERRI #### [facility] [address] [place] [address] Dr. Deepak August LEUKOCYTES Negative Normal NEGATIVE [facility] Comment on above: Performed By: #### B MP, LIVER, LIPA, SHERRI #### [facility] [address] [address] [address] Deepak August Nitrite Ql (U) Negative Normal NEGATIVE [facility] Comment on above: Performed By: #### B MP, LIVER, LIPA, SHERRI #### [facility] [address] [place] [address] Dr. Deepak August pH (U) 6.0 [pH] Normal 5-9 [facility] Comment on above: Performed By: #### B MP, LIVER, LIPA, SHERRI #### [facility] [address] [place] [address] Dr. Deepak August SPEC GRAVITY 1.020 Normal 1.005-<=1.02 5 [facility] Comment on above: Performed By: #### B MP, LIVER, LIPA, SHERRI #### [facility] [address] [place] [address] Dr. Deepak August UA PROTEIN Negative Normal NEGATIVE/ TRACE [facility] Comment on above: Performed By: #### B MP, LIVER, LIPA, SHERRI #### [facility] [address] [address] [address] Deepak August UR MICRO IND NOT INDICATED Normal [facility] Comment on above: Performed By: #### B MP, LIVER, LIPA, SHERRI #### [facility] [address] [place] [address] Dr. Deepak August Urobilinogen Qn (U) 0.2 {Jerod'U}/dL Normal 0.2 - 1. 0 [facility] Comment on above: Performed By: #### B MP, LIVER, LIPA, SHERRI #### [facility] [address] [place] [address] Dr. Deepak August ETHANOL (BLD ALC)on 08-29-19 23 ALC NOTE NOTE: 80 mg/dl is th e legal limit for a blood alcohol level Normal [facility] Comment on above: Performed By: #### B MP, LIVER, LIPA, SHERRI #### [facility] [address] [place] [address] Dr. Deepak August Ethanol [Mass/Vol] mg/dL Normal [facility] Comment on above: Performed By: #### B MP, LIVER, LIPA, SHERRI #### [facility] [address] [place] [address] Dr. Deepak August LACTATE/LACTIC ACIDon 2022 Lactate [Moles/Vol] 1.4 mmol/L Normal 0.4-2.0 [facility] Comment on above: Performed By: #### B MP, LIVER, LIPA, SHERRI #### [facility] [address] [place] [address] Dr. Deepak August LIPASEon 08-28-2022 Lipase [Catalytic activity/Vol] 47.0 U/L Critically low 73.0-393.0 [facility] Comment on above: Performed By: #### B MP, LIVER, LIPA, SHERRI #### [facility] [address] [place] [address] Dr. Deepak August LIVER PROFILEon 08-28-2022 Albumin [Mass/Vol] 4.2 g/dL Normal 3.4-5.0 [facility] Comment on above: Performed By: #### B MP, LIVER, LIPA, SHERRI #### [facility] [address] [place] [address] Dr. Deepak August Albumin/Globulin [Mass ratio] 1.2 {ratio} Normal [facility] Comment on above: Performed By: #### B MP, LIVER, LIPA, SHERRI #### [facility] [address] [place] [address] Dr. Deepak August ALP [Catalytic activity/Vol] 67 U/L Normal 46-116 [facility] Comment on above: Performed By: #### B MP, LIVER, LIPA, SHERRI #### [facility] [address] [address] [address] Deepak August ALT [Catalytic activity/Vol] 21 U/L Normal 14-59 [facility] Comment on above: Performed By: #### B MP, LIVER, LIPA, SHERRI #### [facility] [address] [address] [address] Deepak August AST [Catalytic activity/Vol] 12 U/L Critically low 15-37 [facility] Comment on above: Performed By: #### B MP, LIVER, LIPA, SHERRI #### [facility] [address] [place] [address] Dr. Deepak August BILI, CONJUGATED 0.3 mg/dL Critically high 0.0-0.2 [facility] Comment on above: Performed By: #### B MP, LIVER, LIPA, SHERRI #### [facility] [address] [address] [address] Deepak August Bilirubin [Mass/Vol] 1.4 mg/dL Critically high 0.2-1.0 [facility] Comment on above: Performed By: #### B MP, LIVER, LIPA, SHERRI #### [facility] [address] [place] [address] Dr. Deepak August Globulin (S) [Mass/Vol] 3.6 g/dL Normal [facility] Comment on above: Performed By: #### B MP, LIVER, LIPA, SHERRI #### [facility] [address] [place] [address] Dr. Deepak August Protein [Mass/Vol] 7.8 g/dL Normal 6.4-8.2 [facility] Comment on above: Performed By: #### B MP, LIVER, LIPA, SHERRI #### [facility] [address] [place] [address] Dr. Deepak August URon 08-28-2022 , QUAL Negative Normal NEGATIVE [facility] Comment on above: Performed By: #### B MP, LIVER, LIPA, SHERRI #### [facility] [address] [address] [address] Deepak August PROF CHEM 8 (BAS METB)on Anion gap [Moles/Vol] 13.5 mmol/L Normal [facility] Comment on above: Performed By: #### B MP, LIVER, LIPA, SHERIR #### [facility] [address] [address] [address] Deepak August Calcium [Mass/Vol] 9.0 mg/dL Normal 8.5-10.1 [facility] Comment on above: Performed By: #### B MP, LIVER, LIPA, SHERRI #### [facility] [address] [place] [address] Dr. Deepak Auugst Chloride [Moles/Vol] 104 mmol/L Normal 98-107 [facility] Comment on above: Performed By: #### B MP, LIVER, LIPA, SHERRI #### [facility] [address] [address] [address] Deepak August CO2 [Moles/Vol] 23.8 mmol/L Normal 21.0-32.0 [facility] Comment on above: Performed By: #### B MP, LIVER, LIPA, SHERRI #### [facility] [address] [address] [address] Deepak August Creatinine [Mass/Vol] 0.82 mg/dL Normal 0.55-1.02 [facility] Comment on above: Performed By: #### B MP, LIVER, LIPA, SHERRI #### [facility] [address] [address] [address] Deepak August EGFR-AF UZBEK >60 Normal >=60 [facility] Comment on above: Performed By: #### B MP, LIVER, LIPA, SHERRI #### [facility] [address] [address] [address] Deepak August EGFR-NON AF UZBEK >60 Normal >=60 [facility] Comment on above: Performed By: #### B MP, LIVER, LIPA, SHERRI #### [facility] [address] [address] [address] Deepak August Glucose [Mass/Vol] 119 mg/dL Critically high 74-106 [facility] Comment on above: Performed By: #### B MP, LIVER, LIPA, SHERRI #### [facility] [address] [address] [address] Deepak August Potassium [Moles/Vol] 3.3 mmol/L Critically low 3.5-5.1 [facility] Comment on above: Performed By: #### B MP, LIVER, LIPA, SHERRI #### [facility] [address] [place] [address] Dr. Deepak August Sodium [Moles/Vol] 138 mmol/L Normal 136-145 [facility] Comment on above: Performed By: #### B MP, LIVER, LIPA, SHERRI #### [facility] [address] [place] [address] Dr. Deepak August Urea nitrogen [Mass/Vol] 8.0 mg/dL Normal 7.0-18.0 [facility] Comment on above: Performed By: #### B MP, LIVER, LIPA, SHERRI #### [facility] [address] [place] [address] Dr. Deepak August Urea nitrogen/Creatinine [Mass ratio] 9.8 mg/mg Normal [facility] Comment on above: Performed By: #### B MP, LIVER, LIPA, SHERRI #### [facility] [address] [place] [address] Dr. Deepak August SALICYLATEon 08-28-2022 SALICYLATE <2.8 Normal <=19.9 [facility] Comment on above: Performed By: #### S ALYC, ACET #### [facility] [address] [place] [address] Dr. Deepak August XR CHEST 1 Von [...] by: STELLA MCDOWELL Date: 2022-08-28 10:31 Normal [facility] FERRITINon 06-10-2022 Ferritin [Mass/Vol] 56.0 ng/mL Normal 6.2-137.0 [facility] Comment on above: Performed By: #### B MP, LIVER, LIPA, SHERRI #### [facility] [address] [place] [address] Dr. Deepak August MAGNESIUMon 06-10-2022 Magnesium [Mass/Vol] 2.2 mg/dL Normal 1.8-2.4 [facility] Comment on above: Performed By: #### Agatha MG, PHOS #### [facility] [address] [place] [address] Dr. Deepak August PHOSPHORUSon 06-10-2022 Phosphate [Mass/Vol] 3.6 mg/dL Normal 2.6-4.7 [facility] Comment on above: Performed By: #### Agatha MG, PHOS #### [facility] [address] [place] [address] Dr. Deepak August POTASSIUMon 06-10-2022 Potassium [Moles/Vol] 3.8 mmol/L Normal 3.5-5.1 [facility] Comment on above: Performed By: #### Agatha , MG, PHOS #### [facility] [address] [place] [address] Dr. Deepak August VIT B12 AND FOLATEon 023 Cobalamin (Vitamin B12) [Mass/Vol] 278.0 pg/mL Normal 193.0-986.0 [facility] Comment on above: Performed By: #### B MP, LIVER, LIPA, SHERRI #### [facility] [address] [place] [address] Dr. Deepak August FOLATE 7.40 ng/mL Critically low 8.60-58.90 [facility] Comment on above: Performed By: #### B MP, LIVER, LIPA, SHERRI #### [facility] [address] [place] [address] Dr. Deepak August INSULINon 02-13-2022 Insulin 16.9 uIU/mL Normal 2.6-24.9 [facility] Comment on above: Performed By: #### B MP, LIVER, LIPA, SHERRI #### [facility] [address] [place] [address] Dr. Deepak August CBC AUTO DIFFon 02-11-2022 BASO # 0.1 103/ul Normal 0.0-0.1 [facility] Comment on above: Performed By: #### B MP, LIVER, LIPA, SHERRI #### [facility] [address] [place] [address] Dr. Deepak August Basophils/100 WBC (Bld) 1.0 % Normal 0.2-2.0 [facility] Comment on above: Performed By: #### B MP, LIVER, LIPA, SHERRI #### [facility] [address] [place] [address] Dr. Deepak August EO # 0.4 103/ul Normal 0.0-0.7 [facility] Comment on above: Performed By: #### B MP, LIVER, LIPA, SHERRI #### [facility] [address] [place] [address] Dr. Deepak August Eosinophils/100 WBC (Bld) 5.4 % Normal 0.9-7.0 [facility] Comment on above: Performed By: #### B MP, LIVER, LIPA, SHERRI #### [facility] [address] [place] [address] Dr. Deepak August Erythrocyte distribution width (RBC) [Ratio] 13.0 % Normal 11.0-15.0 [facility] Comment on above: Performed By: #### B MP, LIVER, LIPA, SHERRI #### [facility] [address] [place] [address] Dr. Deepak August Hematocrit (Bld) [Volume fraction] 40.7 % Normal 36.0-48.0 [facility] Comment on above: Performed By: #### B MP, LIVER, LIPA, SHERRI #### [facility] [address] [place] [address] Dr. Deepak August Hemoglobin (Bld) [Mass/Vol] 13.4 g/dL Normal 12.0-16.0 [facility] Comment on above: Performed By: #### B MP, LIVER, LIPA, SHERRI #### [facility] [address] [place] [address] Dr. Deepak August IG # 0.02 10e3/ul Normal 0.00-0.03 [facility] Comment on above: Performed By: #### B MP, LIVER, LIPA, SHERRI #### [facility] [address] [place] [address] Dr. Deepak August IG % 0.3 % Normal 0.0-0.5 [facility] Comment on above: Performed By: #### B MP, LIVER, LIPA, SHERRI #### [facility] [address] [place] [address] Dr. Deepak August LYMPH # 1.6 103/ul Normal 1.2-3.8 [facility] Comment on above: Performed By: #### B MP, LIVER, LIPA, SHERRI #### [facility] [address] [place] [address] Dr. Deepak August Lymphocytes/100 WBC (Bld) 23.1 % Normal 20.5-60.0 [facility] Comment on above: Performed By: #### B MP, LIVER, LIPA, SHERRI #### [facility] [address] [place] [address] Dr. Deepak August MANUAL DIFF REQ NO Normal [facility] Comment on above: Performed By: #### B MP, LIVER, LIPA, SHERRI #### [facility] [address] [place] [address] Dr. Deepak August MCH (RBC) [Entitic mass] 28.6 pg Normal 26.7-34.0 [facility] Comment on above: Performed By: #### B MP, LIVER, LIPA, SHERRI #### [facility] [address] [place] [address] Dr. Deepak August MCHC (RBC) [Mass/Vol] 32.9 g/dL Normal 29.9-35.2 [facility] Comment on above: Performed By: #### B MP, LIVER, LIPA, SHERRI #### [facility] [address] [place] [address] Dr. Deepak August MCV (RBC) [Entitic vol] 86.8 fL Normal 81.0-99.0 [facility] Comment on above: Performed By: #### B MP, LIVER, LIPA, SHERRI #### [facility] [address] [place] [address] Dr. Deepak August MONO # 0.5 103/ul Normal 0.3-0.8 [facility] Comment on above: Performed By: #### B MP, LIVER, LIPA, SHERRI #### [facility] [address] [place] [address] Dr. Deepak August Monocytes/100 WBC (Bld) 6.9 % Normal 1.7-12.0 [facility] Comment on above: Performed By: #### B MP, LIVER, LIPA, SHERRI #### [facility] [address] [place] [address] Dr. Deepak August NEUT # 4.3 103/ul Normal 1.4-6.5 [facility] Comment on above: Performed By: #### B MP, LIVER, LIPA, SHERRI #### [facility] [address] [place] [address] Dr. Deepak August Neutrophils/100 WBC (Bld) 63.3 % Normal 43.0-75.0 [facility] Comment on above: Performed By: #### B MP, LIVER, LIPA, SHERRI #### [facility] [address] [place] [address] Dr. Deepak August Platelet mean volume (Bld) [Entitic vol] 9.7 fL Normal 9.5-13.5 [facility] Comment on above: Performed By: #### B MP, LIVER, LIPA, SHERRI #### [facility] [address] [place] [address] Dr. Deepak August PLT 463 103/ul Critically high 150-450 [facility] Comment on above: Performed By: #### B MP, LIVER, LIPA, SHERRI #### [facility] [address] [address] [address] Deepak August RBC 4.69 106/ul Normal 4.20-5.40 [facility] Comment on above: Performed By: #### B MP, LIVER, LIPA, SHERRI #### [facility] [address] [address] [address] Deepak August WBC 6.8 103/ul Normal 4.0-11.0 [facility] Comment on above: Performed By: #### B MP, LIVER, LIPA, SHERRI #### [facility] [address] [address] [address] Deepak August FREE THYROXINE INDEX T7on FTI 2.33 Normal 1.30-4.50 [facility] Comment on above: Performed By: #### B MP, LIVER, LIPA, SHERRI #### [facility] [address] [address] [address] Deepak August T3U 31.0 % Normal 30.0-39.0 [facility] Comment on above: Performed By: #### B MP, LIVER, LIPA, SHERRI #### [facility] [address] [address] [address] Deepak August T4 [Mass/Vol] 7.50 ug/dL Normal 4.80-13.90 [facility] Comment on above: Performed By: #### B MP, LIVER, LIPA, SHERRI #### [facility] [address] [address] [address] Deepak August GLYCOHEMOGLOBIN A1Con 2021 ADA RECOMMENDATION SEE BELOW Normal [facility] Comment on above: Result Comment: ADA RECOMMENDED LIMIT 4.0 - 6.0 ADA THERAPEUTIC TARGET < 7.0 ACTION SUGGESTED > 7.0 Performed By: #### A 1C #### [facility] [address] [address] [address] Deepak August Glucose [Mass/Vol] 114 mg/dL Normal [facility] Comment on above: Performed By: #### A 1C #### [facility] [address] [address] [address] Deepak August HbA1c (Bld) [Mass fraction] 5.6 % Normal 4.5-6.2 [facility] Comment on above: Performed By: #### A 1C #### [facility] [address] [address] [address] Deepak August IRONon 02-11-2022 Iron [Mass/Vol] 97.0 ug/dL Normal 50.0-170.0 [facility] Comment on above: Performed By: #### B MP, LIVER, LIPA, SHERRI #### [facility] [address] [address] [address] Deepak August LIPID PROFILEon 02-11-2022 CHOL-HDL RATIO NORM SEE BELOW Normal [facility] Comment on above: Result Comment: 3.3 - 4.4 LOW RISK 4.4 - 7.1 AVERAGE RISK 7.1 - 11.0 MODERATE RISK >11.0 HIGH RISK Performed By: #### B MP, LIVER, LIPA, SHERRI #### [facility] [address] [address] [address] Deepak August Cholesterol [Mass/Vol] 172 mg/dL Normal <=200 [facility] Comment on above: Performed By: #### B MP, LIVER, LIPA, SHERRI #### [facility] [address] [address] [address] Deepak August Cholesterol in HDL [Mass/Vol] 64 mg/dL Critically high 40-60 [facility] Comment on above: Performed By: #### B MP, LIVER, LIPA, SHERRI #### [facility] [address] [address] [address] Deepak August Cholesterol in LDL [Mass/Vol] 98.0 mg/dL Normal [facility] Comment on above: Performed By: #### B MP, LIVER, LIPA, SHERRI #### [facility] [address] [address] [address] Deepak August Cholesterol.total/Chol esterol in HDL [Mass ratio] 2.7 {ratio} Normal [facility] Comment on above: Performed By: #### B MP, LIVER, LIPA, SHERRI #### [facility] [address] [address] [address] Deepak August HDL NORMAL > or = 60 mg/dl - LO W CARDIOVASCULAR RISK <40 mg/dl - HIGH CARDIOVASCULAR RISK Normal [facility] Comment on above: Performed By: #### B MP, LIVER, LIPA, SHERRI #### [facility] [address] [address] [address] Deepak August LDL CALC NORMAL SEE BELOW Normal [facility] Comment on above: Result Comment: <100 mg/dl OPTIMAL 100 - 129 mg/dl NEAR OR ABOVE OPTIMAL 130 - 159 mg/dl BORDERLINE HIGH 160 - 189 mg/dl HIGH >190 mg/dl VERY HIGH Performed By: #### B MP, LIVER, LIPA, SHERRI #### [facility] [address] [place] [address] Dr. Deepak August Triglyceride [Mass/Vol] 50 mg/dL Normal <=150 [facility] Comment on above: Performed By: #### B MP, LIVER, LIPA, SHERRI #### [facility] [address] [address] [address] Deepak August VLDL CALC 10.0 mg/dL Normal [facility] Comment on above: Performed By: #### B MP, LIVER, LIPA, SHERRI #### [facility] [address] [place] [address] Dr. Deepak August PROF 14(COMP METB)on 022 Albumin [Mass/Vol] 3.9 g/dL Normal 3.4-5.0 [facility] Comment on above: Performed By: #### B MP, LIVER, LIPA, SHERRI #### [facility] [address] [place] [address] Dr. Deepak August Albumin/Globulin [Mass ratio] 1.3 {ratio} Normal [facility] Comment on above: Performed By: #### B MP, LIVER, LIPA, SHERRI #### [facility] [address] [place] [address] Dr. Deepak August ALP [Catalytic activity/Vol] 67 U/L Normal 46-116 [facility] Comment on above: Performed By: #### B MP, LIVER, LIPA, SHERRI #### [facility] [address] [address] [address] Deepak August ALT [Catalytic activity/Vol] 39 U/L Normal 14-59 [facility] Comment on above: Performed By: #### B MP, LIVER, LIPA, SHERRI #### [facility] [address] [address] [address] Deepak August Anion gap [Moles/Vol] 9.4 mmol/L Normal [facility] Comment on above: Performed By: #### B MP, LIVER, LIPA, SHERRI #### [facility] [address] [place] [address] Dr. Deepak August AST [Catalytic activity/Vol] 16 U/L Normal 15-37 [facility] Comment on above: Performed By: #### B MP, LIVER, LIPA, SHERRI #### [facility] [address] [place] [address] Dr. Deepak August Bilirubin [Mass/Vol] 0.6 mg/dL Normal 0.2-1.0 [facility] Comment on above: Performed By: #### B MP, LIVER, LIPA, SHERRI #### [facility] [address] [place] [address] Dr. Deepak August Calcium [Mass/Vol] 8.6 mg/dL Normal 8.5-10.1 [facility] Comment on above: Performed By: #### B MP, LIVER, LIPA, SHERRI #### [facility] [address] [place] [address] Dr. Deepak August Chloride [Moles/Vol] 105 mmol/L Normal 98-107 [facility] Comment on above: Performed By: #### B MP, LIVER, LIPA, SHERRI #### [facility] [address] [place] [address] Dr. Deepak August CO2 [Moles/Vol] 27.7 mmol/L Normal 21.0-32.0 [facility] Comment on above: Performed By: #### B MP, LIVER, LIPA, SHERRI #### [facility] [address] [place] [address] Dr. Deepak August Creatinine [Mass/Vol] 0.68 mg/dL Normal 0.55-1.02 [facility] Comment on above: Performed By: #### B MP, LIVER, LIPA, SHERRI #### [facility] [address] [address] [address] Deepak August EGFR-AF UZBEK >60 Normal >=60 [facility] Comment on above: Performed By: #### B MP, LIVER, LIPA, SHERRI #### [facility] [address] [place] [address] Dr. Deepak August EGFR-NON AF UZBEK >60 Normal >=60 [facility] Comment on above: Performed By: #### B MP, LIVER, LIPA, SHERRI #### [facility] [address] [place] [address] Dr. Deepak August Globulin (S) [Mass/Vol] 3.1 g/dL Normal [facility] Comment on above: Performed By: #### B MP, LIVER, LIPA, SHERRI #### [facility] [address] [place] [address] Dr. Deepak August Glucose [Mass/Vol] 115 mg/dL Critically high 74-106 T [facility] Comment on above: Performed By: #### B MP, LIVER, LIPA, SHERRI #### [facility] [address] [place] [address] Dr. Deepak August Potassium [Moles/Vol] 4.1 mmol/L Normal 3.5-5.1 [facility] Comment on above: Performed By: #### B MP, LIVER, LIPA, SHERRI #### [facility] [address] [place] [address] Dr. Deepak August Protein [Mass/Vol] 7.0 g/dL Normal 6.4-8.2 [facility] Comment on above: Performed By: #### B MP, LIVER, LIPA, SHERRI #### [facility] [address] [place] [address] Dr. Deepak August Sodium [Moles/Vol] 138 mmol/L Normal 136-145 [facility] Comment on above: Performed By: #### B MP, LIVER, LIPA, SHERRI #### [facility] [address] [place], [place] [address] Dr. Deepak August Urea nitrogen [Mass/Vol] 6.0 mg/dL Critically low 7.0-18.0 [facility] Comment on above: Performed By: #### B MP, LIVER, LIPA, SHERRI #### [facility] [address] [place], [place] [address] Dr. Deepak August Urea nitrogen/Creatinine [Mass ratio] 8.8 mg/mg Normal [facility] Comment on above: Performed By: #### B MP, LIVER, LIPA, SHERRI #### [facility] [address] [place] [address] [address] Deepak August TSHon 02-11-2022 TSH 0.860 uIU/mL Normal 0.358-3.740 [facility] Comment on above: Performed By: #### B MP, LIVER, LIPA, SHERRI #### [facility] [address] [place] [address] [address] Deepak August MG MAMM SCREEN 3D FAISAL CADon 02-01-2022 MG MAMM SCREEN 3D FAISAL CAD Patient: RAMY MARTINEZ Exam Date: 02/01/2022 : 1980 Gender:F Ordering : DR RENA SMITH . Admission #: [id number] Family : Order #: [id number] CLICK HERE TO VIEW EXAM RADIOLOGY REPORT [...] uterine cancer at age 40. LOCATION: [facility] BREAST COMPOSITION: Heterogeneously dense,which may obscure [...] Vasquez MD on 02/01/2022 at 08:53 Normal [facility] PAP ACOG PANEL 2: 30 to 65on 01-31-2022 . . Normal [facility] Comment on above: Result Comment: Perf ormed at: WB Performed By: #### B MP, LIVER, LIPA, SHERRI #### [facility] [address] [address] [address] Deepak August Age Gdln ACOG Testing 30- Normal [facility] Comment on above: Performed By: #### B MP, LIVER, LIPA, SHERRI #### [facility] [address] [place] [address] Dr. Deepak August DIAGNOSIS: Comment Normal [facility] Comment on above: Result Comment: NEGA TIVE FOR INTRAEPITHELIAL LESION OR MALIGNANCY. FUNGAL ORGANISMS MORPHOLOGICALLY CONSISTENT WITH JAY SPECIES ARE PRESENT. CELLULAR CHANGES ASSOCIATED WITH INFLAMMATION ARE PRESENT. Performed at: WB Performed By: #### B MP, LIVER, LIPA, SHERRI #### [facility] [address] [place] [address] Dr. Deepak August HPV Aptima Negative Normal Negative [facility] Comment on above: Result Comment: This nucleic acid amplification test detects fourteen high-risk HPV types (16,18,31,33,35,39,45,51,52,56,58,59,66,68) without differentiation. Performed at: =G Performed By: #### B MP, LIVER, LIPA, SHERRI #### [facility] [address] [address] [address] Deepak August Methodology: Comment Normal [facility] Comment on above: Result Comment: This liquid based ThinPrep(R) pap test was screened with the use of an image guided system. Performed at: WB Performed By: #### B MP, LIVER, LIPA, SHERRI #### [facility] [address] [place] [address] Dr. Deepak August Note: Comment Normal [facility] Comment on above: Result Comment: The Pap [...] #### B MP, LIVER, LIPA, SHERRI #### [facility] [address] [place] [address] Dr. Deepak August Performed by: Comment Normal [facility] Comment on above: Result Comment: Ness Ortiz, Wellness Manager (ASCP) Performed at: WB Performed By: #### B MP, LIVER, LIPA, SHERRI #### [facility] [address] [place] [address] Dr. Deepak August Specimen adequacy: Comment Normal [facility] Comment on above: Result Comment: Sati sfactory for evaluation. No endocervical component is identified. Performed at: WB Performed By: #### B MP, LIVER, LIPA, SHERRI #### [facility] [address] [place] [address] Dr. Deepak August PROF CHEM 8 (BAS METB)on Anion gap [Moles/Vol] 12.9 mmol/L Normal [facility] Comment on above: Performed By: #### B MP, LIVER, LIPA, SHERRI #### [facility] [address] [place] [address] Dr. Deepak August Calcium [Mass/Vol] 8.7 mg/dL Normal 8.5-10.1 [facility] Comment on above: Performed By: #### B MP, LIVER, LIPA, SHERRI #### [facility] [address] [place] [address] Dr. Deepak August Chloride [Moles/Vol] 105 mmol/L Normal 98-107 [facility] Comment on above: Performed By: #### B MP, LIVER, LIPA, SHERRI #### [facility] [address] [place] [address] Dr. Deepak August CO2 [Moles/Vol] 25.3 mmol/L Normal 21.0-32.0 [facility] Comment on above: Performed By: #### B MP, LIVER, LIPA, SHERRI #### [facility] [address] [place] [address] [address] Deepak August Creatinine [Mass/Vol] 0.69 mg/dL Normal 0.55-1.02 [facility] Comment on above: Performed By: #### B MP, LIVER, LIPA, SHERRI #### [facility] [address] [place] [address] [address] Deepak August EGFR-AF UZBEK >60 Normal >=60 [facility] Comment on above: Performed By: #### B MP, LIVER, LIPA, SHERRI #### [facility] [address] [place] [address] [address] Deepak August EGFR-NON AF UZBEK >60 Normal >=60 [facility] Comment on above: Performed By: #### B MP, LIVER, LIPA, SHERRI #### [facility] [address] [place] [address] [address] Deepak August Glucose [Mass/Vol] 114 mg/dL Critically high 74-106 [facility] Comment on above: Performed By: #### B MP, LIVER, LIPA, SHERRI #### [facility] [address] [place] [address] [address] Deepak August Potassium [Moles/Vol] 4.2 mmol/L Normal 3.5-5.1 [facility] Comment on above: Performed By: #### B MP, LIVER, LIPA, SHERRI #### [facility] [address] [place] [address] [address] Deepak August Sodium [Moles/Vol] 139 mmol/L Normal 136-145 [facility] Comment on above: Performed By: #### B MP, LIVER, LIPA, SHERRI #### [facility] [address] [place] [address] [address] Deepak August Urea nitrogen [Mass/Vol] 6.0 mg/dL Critically low 7.0-18.0 [facility] Comment on above: Performed By: #### B MP, LIVER, LIPA, SHERRI #### [facility] [address] [place], [place] [address] Dr. Deepak August Urea nitrogen/Creatinine [Mass ratio] 8.7 mg/mg Normal [facility] Comment on above: Performed By: #### B MP, LIVER, LIPA, SHERRI #### [facility] [address] [place], [place] [address] Dr. Deepak August *HCG*POCT*DEVICEon 8 HCG.beta subunit ( test) Ql (U) Negative Normal Negative [facility] *POC GLUCOSE BATTERYon 09-03 *POC SAMPLE TYPE Capillary Blood Normal [facility] Glucose mass conc 106 mg/dL High 70-99 [facility] Comment on above: Result Comment: No B MORRISE per RN: PATIENT TYPE Surgical Pathologyon 018 Surgical Pathology Surgical Pathology ReportPatient Name: RAMY MARTINEZ Rec #: [id number] Physician: LUIS GARCÍA--- Clinical History ---Preop Diagnosis: [...] developed by and are performed at [facility], [address] [place] [address]. All tests reported here, except those addressing HER2 overexpressionas a predictive marker, have not been cleared by or approved by the [place] Foodand Drug Administration (FDA). The laboratory is regulated under CLIA asqualified to perform high-complexity testing. The tests are used forclinical purposes. They should not be regarded as investigational or forresearch. mg03/PGB654:09/05/2017 *Electronically Signed ByJunior Hitchcock MD, PhD09/05/2017 17:39:19Professional Interpretation performed at location: [address] [place] [address]---SPECIMEN(S) RECEIVED:---SBXA: Colon, BXB: Colon, BXC: Colon, BXD: [...] TE 1 Lab Use Only: Job ID [id number] description by: Beata De Guzman [facility] Comment on above: Performed By: #### S URGP ####[facility] [place] [address] [place] [address] C Reactive Proteinon 018 C reactive protein (CRP) 3.70 mg/L Normal <10.00 [facility] Comment on above: Performed By: #### C BCDFC, CMPN, CRP ####[facility] [place] [address]OeiscqAultman [facility] [place] [address] CBC,PLATELET,DIFFERENTIAL - CCLon 06-11-2017 Abs Baso 0.10 K/uL High 0.01-0.08 [facility] Comment on above: Performed By: #### C BCDFC, CMPN, CRP ####[facility] [place] [address] 41247XdjteqAultman Alliance [facility] [place] [address] Abs Eos 1.05 K/uL High 0.04-0.36 [facility] Comment on above: Performed By: #### C BCDFC, CMPN, CRP ####[facility] [place] [address]BanpapAultman Alliance [facility] [place] [address] Abs [place] 0.72 K/uL Normal 0.24-0.86 [facility] Comment on above: Performed By: #### C BCDFC, CMPN, CRP ####[facility] [place], [place] [address] [place] [address] Basophils/100 WBC Auto (Bld) 1.0 % Normal [facility] Comment on above: Performed By: #### C BCDFC, CMPN, CRP ####[facility] [place] [address] 46279ZcildqAultman Alliance [facility] Hospital[address] [place] [address] 95886 DIFFERENTIAL TYPE Electronic Differential Normal [facility] Comment on above: Performed By: #### C BCDFC, CMPN, CRP ####[facility] [place], [place] [address] [place], [place] [address] [place] [address] 70671 Eosinophils/100 leukocytes 10.2 % Normal [facility] Comment on above: Performed By: #### C BCDFC, CMPN, CRP ####[facility] [facility] [address]HstzumAultman Alliance [facility] Hospital[address] [place] [address]99 Erythrocytes (RBC) 4.80 10*6/uL Normal 3.93-5.22 [facility] Comment on above: Performed By: #### C BCDFC, CMPN, CRP ####[facility] [place] [address], [place] [address] [place], [place] [address] [place] [address] 07906 Erythrocytes (RBC) 13.1 % Normal 11.7-14.4 [facility] Comment on above: Performed By: #### C BCDFC, CMPN, CRP ####[facility] [place] [address], [place] [address]er[address] [place], [place] [address] [place] [address] Hematocrit (HCT) 41.8 % Normal 34.1-44.9 [facility] Comment on above: Performed By: #### C BCDFC, CMPN, CRP ####[facility] [place] [address], [place] [address]Xqoiif[address] [place], [place] [address] [place] [address]40 Hemoglobin mass conc (Bld) 28.5 pg Normal 25.6-32.2 [facility] Comment on above: Performed By: #### C BCDFC, CMPN, CRP ####[facility] [place] [address], [place] [address]FqqxwkAultman Alliance [facility] [place] [address] 45822 Hemoglobin mass conc (Bld) 32.8 g/dL Normal 32.2-35.5 [facility] Comment on above: Performed By: #### C BCDFC, CMPN, CRP ####[facility] [place] [address] 97288ZhttdwAultman Alliance [facility] Hospital[address] [place] [address] 46605 Hemoglobin mass conc (Bld) 13.7 g/dL Normal 11.2-15.7 [facility] Comment on above: Performed By: #### C BCDFC, CMPN, CRP ####[facility] [place], [place] [address] [place] [address] 16199 IMMATURE GRANS % 0.3 % Normal [facility] Comment on above: Performed By: #### C BCDFC, CMPN, CRP ####[facility] [place] [address] [place], [place] [address] [place] [address] 69254 IMMATURE GRANS ABSOLUTE 0.03 K/uL Normal 0.00-0.03 [facility] Comment on above: Performed By: #### C BCDFC, CMPN, CRP ####[facility] [place] [address] [place], [place] [address] [place] [address] 54895 Lymphocytes 2.73 10*3/uL Normal 1.18-3.74 [facility] Comment on above: Performed By: #### C BCDFC, CMPN, CRP ####[facility] [place], [place] [address] [place] [address] 32002 Lymphocytes/100 leukocytes 26.5 % Normal [facility] Comment on above: Performed By: #### C BCDFC, CMPN, CRP ####[facility] [place] [address] [place], [place] [address] [place] [address] 50308 MCV 87.1 fL Normal 79.4-94.8 [facility] Comment on above: Performed By: #### C BCDFC, CMPN, CRP ####[facility] [place] [address], [place] [address]Xxqdlj[address] [place], [place] [address] [place] [address] 15090 Monocytes/100 leukocytes 7.0 % Normal [facility] Comment on above: Performed By: #### C BCDFC, CMPN, CRP ####[facility] [place] [address] [place], [place] [address] [place] [address] 33080 NEUTROPHIL SEGMENTED 55.0 % Normal [facility] Comment on above: Performed By: #### C BCDFC, CMPN, CRP ####[facility] [place] [address] [place], [place] [address] [place] [address] 60485 Nucleated erythrocytes 0.0 /100 WBC Normal 0.0-0.2 [facility] Comment on above: Performed By: #### C BCDFC, CMPN, CRP ####[facility] [place] [address] [place], [place] [address] [place] [address] 08429 Platelet mean volume (PMV) 11.1 fL Normal 9.4-12.3 [facility] Comment on above: Performed By: #### C BCDFC, CMPN, CRP ####[facility] [place] [address] [place], [place] [address] [place] [address] 87237 Platelets 433 10*3/uL High 182-369 [facility] Comment on above: Performed By: #### C BCDFC, CMPN, CRP ####[facility] [place] [address] [place], [place] [address] [place] [address] 99653 SEGS + Bands,Absolute 5.66 K/uL Normal 1.56-6.13 [facility] Comment on above: Performed By: #### C BCDFC, CMPN, CRP ####[facility] [place] [address], [place] [address]YnqdhfAultman Alliance Community Hospital[address] [place] [address] 67095 WBC (Leukocytes) 10.29 10*3/uL High 3.98-10.04 [facility] Comment on above: Performed By: #### C BCDFC, CMPN, CRP ####[facility] [place] [address], [place] [address]Rcnpch[address] [place], [place] [address] [place] [address] 35967 Comprehensive Metabolic Pane [place] 06-11-2017 Alanine aminotransferase (ALT) 15 U/L Normal 9-48 [facility] Comment on above: Performed By: #### C BCDFC, CMPN, CRP ####[facility] [place] [address], [place] [address]Yaujjd[address] [place], [place] [address] [place] [address] 77209 Albumin 4.6 g/dL Normal 3.5-5.0 [facility] Comment on above: Performed By: #### C BCDFC, CMPN, CRP ####[facility] [place] [address] [place], [place] [address] [place] [address] 52325 Alkaline phosphatase (ALP) 77 U/L Normal 32-126 [facility] Comment on above: Performed By: #### C BCDFC, CMPN, CRP ####[facility] [place], [place] [address] [place] [address] 47109 Anion gap 12 mmol/L Normal 7-17 [facility] Comment on above: Performed By: #### C BCDFC, CMPN, CRP ####[facility] [place], [place] [address] [place] [address] 59502 Aspartate aminotransferase (AST) 14 U/L Normal 14-40 [facility] Comment on above: Performed By: #### C BCDFC, CMPN, CRP ####[facility] [place], [place] [address]RznkazAultman Alliance [facility] Hospital[address] [place] [address] 25105 Bilirubin (total) 0.4 mg/dL Normal <1.5 [facility] Comment on above: Performed By: #### C BCDFC, CMPN, CRP ####[facility] [place], [place] [address] [place] [address] 55102 BUN/Creatinine Ratio 13 mg/mg Normal [facility] Comment on above: Performed By: #### C BCDFC, CMPN, CRP ####[facility] [place] [address] [place] [address] [place] [address] 80392 Calcium 9.5 mg/dL Normal 8.6-10.5 [facility] Comment on above: Performed By: #### C BCDFC, CMPN, CRP ####[facility] [place] [address] [place] [address] [place] [address] 53829 Chloride 104 mmol/L Normal 98-108 [facility] Comment on above: Performed By: #### C BCDFC, CMPN, CRP ####[facility] [place] [address] [place] [address] [facility] [place] [address] CO2 27 mmol/L Normal 22-30 [facility] Comment on above: Performed By: #### C BCDFC, CMPN, CRP ####[facility] [place] [address] 15307FdxmicAultman Alliance [facility] Hospital[address] [place] [address] 95946 Creatinine 0.68 mg/dL Normal 0.50-1.20 [facility] Comment on above: Performed By: #### C BCDFC, CMPN, CRP ####[facility] [place] [address] 87[address]MdvnpkAultman Alliance Community Hospital[address] [place] [address] 88969 eGFR (non-black) mL/min/{1.73_m2} Normal >60 [facility] Comment on above: Performed By: #### C BCDFC, CMPN, CRP ####[facility] [place], [place] [address] [place] [address] 71636 Glucose mass conc 90 mg/dL Normal 70-99 [facility] Comment on above: Performed By: #### C BCDFC, CMPN, CRP ####[facility] [place] [address] [place] [address] [place] [address] 41769 Osmolality 288 mOsm/kg Normal 278-305 [facility] Comment on above: Performed By: #### C BCDFC, CMPN, CRP ####[facility] [place] [address] [place], [place] [address] [place] [address] 46787 Potassium molar conc 3.7 mmol/L Normal 3.5-5.0 [facility] Comment on above: Performed By: #### C BCDFC, CMPN, CRP ####[facility] [place], [place] [address] [place] [address] Protein 7.6 g/dL Normal 6.4-8.3 [facility] Comment on above: Performed By: #### C BCDFC, CMPN, CRP ####[facility] [place] [address] 89771AifgpyAultman Alliance Community Hospital[address] [place] [address] 91888 Sodium 139 mmol/L Normal 133-143 [facility] Comment on above: Performed By: #### C BCDFC, CMPN, CRP ####[facility] [place], [place] [address]TizwyzAultman Alliance Community Hospital[address] [place] [address] 32078 Urea nitrogen 9 mg/dL Normal 7-22 [facility] Comment on above: Performed By: #### C BCDFC, CMPN, CRP ####[facility] [place] [address] [place], [place] [address] [place] [address] Vital Signs Date Time Vital Sign Value Performing Clinician Facility 09-24-2024 08:18-0400 Blood Pressure Location [facility] 09-24-2024 08:18-0400 Diastolic blood pressure 86 mm[Hg] [facility] 09-24-2024 08:18-0400 Heart rate 73 /min [facility] 09-24-2024 08:18-0400 Systolic blood pressure 125 mm[Hg] [facility] 01-22-2024 15:40-0400 Body height 165.1 cm Denisse Chiang MD Work Phone: [facility] 01-22-2024 15:40-0400 Body mass index (BMI) [Ratio] 29.79 kg/m2 Denisse Chiang MD Work Phone: [facility] 01-22-2024 15:40-0400 Body weight 81.19 kg Denisse Chiang MD Work Phone: [facility] 01-22-2024 15:40-0400 Diastolic blood pressure 81 mm[Hg] Denisse Chiang MD Work Phone: [facility] 01-22-2024 15:40-0400 Heart rate 76 /min Denisse Chiang MD Work Phone: [facility] 01-22-2024 15:40-0400 Systolic blood pressure 117 mm[Hg] Denisse Chiang MD Work Phone: [facility] 01-03-2024 15:07-0400 Body mass index (BMI) [Ratio] 29.64 kg/m2 Sherri Reynolds PA Work Phone: [facility] 01-03-2024 15:07-0400 Body weight 80.8 kg Sherri Reynolds PA Work Phone: [facility] 01-03-2024 15:07-0400 Diastolic blood pressure 76 mm[Hg] Sherri Reynolds PA Work Phone: [facility] 01-03-2024 15:07-0400 Systolic blood pressure 110 mm[Hg] Sherri Reynolds PA Work Phone: [facility] 12-24-2023 20:30-0400 Diastolic blood pressure 63 mm[Hg] Denisse Chiang MD Work Phone: [facility] 12-24-2023 20:30-0400 Heart rate 84 /min Denisse Chiang MD Work Phone: [facility] 12-24-2023 20:30-0400 Respiratory rate 17 /min Denisse Chiang MD Work Phone: [facility] 12-24-2023 20:30-0400 SaO2% (BldA) [Mass fraction] 99 % Denisse Chiang MD Work Phone: [facility] 12-24-2023 20:30-0400 Systolic blood pressure 110 mm[Hg] Denisse Chiang MD Work Phone: [facility] 12-24-2023 20:00-0400 Body temperature 97.2 [degF] Denisse Chiang MD Work Phone: [facility] 12-24-2023 12:43-0400 Body height 165.1 cm Densise Chiang MD Work Phone: [facility] 12-24-2023 12:43-0400 Body mass index (BMI) [Ratio] 28.96 kg/m2 Denisse Chiang MD Work Phone: [facility] 12-24-2023 12:43-0400 Body weight 78.93 kg Denisse Chiang MD Work Phone: [facility] 10-09-2023 13:06-0400 Body height 165.1 cm Denisse Chiang MD Work Phone: [facility] 10-09-2023 13:06-0400 Body mass index (BMI) [Ratio] 29.79 kg/m2 Denisse Chiang MD Work Phone: [facility] 10-09-2023 13:06-0400 Body weight 81.19 kg Denisse Chiang MD Work Phone: [facility] 10-09-2023 13:06-0400 Diastolic blood pressure 82 mm[Hg] Denisse Chiang MD Work Phone: [facility] 10-09-2023 13:06-0400 Heart rate 84 /min Denisse Chiang MD Work Phone: [facility] 10-09-2023 13:06-0400 Systolic blood pressure 126 mm[Hg] Denisse Chiang MD Work Phone: [facility] 09-25-2023 14:27-0400 Blood Pressure Location Torres Sarmini [facility] 09-25-2023 14:27-0400 Diastolic blood pressure 80 mm[Hg] Torres Sarmini [facility] 09-25-2023 14:27-0400 Heart rate 70 /min Torres Sarmini [facility] 09-25-2023 14:27-0400 Respiratory rate 18 /min Torres Sarmini [facility] 09-25-2023 14:27-0400 Systolic blood pressure 116 mm[Hg] Torres Sarmini [facility] 09-10-2023 14:15-0400 Diastolic blood pressure 88 mm[Hg] Torres Sarmini [facility] 09-10-2023 14:15-0400 Heart rate 78 /min Torres Sarmini [facility] 09-10-2023 14:15-0400 Respiratory rate 17 /min Torres Sarmini [facility] 09-10-2023 14:15-0400 SaO2% (BldA) [Mass fraction] 100 % Torres Sarmini [facility] 09-10-2023 14:15-0400 Systolic blood pressure 137 mm[Hg] Torres Sarmini [facility] 09-10-2023 14:05-0400 Diastolic blood pressure 89 mm[Hg] Torres Sarmini [facility] 09-10-2023 14:05-0400 Heart rate 72 /min Torres Sarmini [facility] 09-10-2023 14:05-0400 Respiratory rate 16 /min Torres Sarmini [facility] 09-10-2023 14:05-0400 SaO2% (BldA) [Mass fraction] 99 % Torres Sarmini [facility] 09-10-2023 14:05-0400 Systolic blood pressure 147 mm[Hg] Torres Sarmini [facility] 09-10-2023 14:00-0400 Heart rate 75 /min Torres Sarmini [facility] 09-10-2023 14:00-0400 Systolic blood pressure 142 mm[Hg] Torres Sarmini [facility] 09-10-2023 13:49-0400 Body temperature 97.7 [degF] Torres Sarmini [facility] 09-10-2023 13:45-0400 Respiratory rate 14 /min Torres Sarmini [facility] 09-10-2023 13:40-0400 Respiratory rate 14 /min Torres Sarmini [facility] 09-10-2023 13:35-0400 Respiratory rate 13 /min Torres Sarmini [facility] 09-10-2023 11:40-0400 Blood Pressure Location Torres Sarmini [facility] 09-10-2023 11:40-0400 Body temperature 97.52 [degF] Torres Sarmini [facility] 07-11-2023 07:38-0500 Blood Pressure Location Torres Sarmini [facility] 07-11-2023 07:38-0500 Diastolic blood pressure 88 mm[Hg] Torres Sarmini [facility] 07-11-2023 07:38-0500 Heart rate 80 /min Torres Sarmini [facility] 07-11-2023 07:38-0500 Respiratory rate 18 /min Torres Sarmini [facility] 07-11-2023 07:38-0500 Systolic blood pressure 128 mm[Hg] Melissa Rivera [facility] 08-31-2022 17:05-0400 Body temperature 98.4 [degF] MD Yaquelin Perez Work Phone: [facility] 08-31-2022 17:05-0400 Diastolic blood pressure 86 mm[Hg] MD Yaquelin Perez Work Phone: [facility] 08-31-2022 17:05-0400 Heart rate 72 /min MD Yaquelin Perez Work Phone: [facility] 08-31-2022 17:05-0400 Respiratory rate 18 /min MD Yaquelin Perez Work Phone: [facility] 08-31-2022 17:05-0400 SaO2% (BldA) [Mass fraction] 100 % MD Yaquelin Perez Work Phone: [facility] 08-31-2022 17:05-0400 Systolic blood pressure 129 mm[Hg] MD Yaquelin Perez Work Phone: [facility] 08-29-2022 14:54-0400 Body height 166.37 cm MD Yaquelin Perez Work Phone: [facility] 08-28-2022 17:33-0400 Body weight 96.61 kg MD Yaquelin Perez Work Phone: [facility] 08-30-2021 10:00-0400 Body height 165.1 cm Reddy Dewitt Other [employer] Other 08-30-2021 10:00-0400 Body mass index (BMI) [Ratio] 36.61 kg/m2 Reddy Dewitt Other [employer] Other 08-30-2021 10:00-0400 Body weight 99.79 kg Reddy Dewitt Other [facility] Other Encounters Encounter Date Encounter Type Care Provider Facility Start: 09-24-2024 End: 09-24-2024 ambulatory Melissa Rivera Facility:[facility] Start: 09-24-2024 End: 09-24-2024 Patient encounter procedure Melissa Rivera [facility] Start: 01-22-2024 End: 01-22-2024 Postop follow up visit related to original px Denisse Chiang MD Work Phone: [facility] Comment on above: Prolapsed internal h emorrhoids (Primary Dx) Start: 01-22-2024 End: 01-22-2024 ambulatory [facility] Start: 01-03-2024 End: 01-03-2024 Patient encounter [...] Department Unsolicited Start: 12-24-2023 End: 12-24-2023 ambulatory DENISSE [facility] Start: 12-24-2023 End: 12-24-2023 Subsequent hospital visit by physician Denisse Chiang MD Work Phone: [facility] [place] Comment on above: Prolapsed internal h emorrhoids Start: 12-13-2023 End: 12-13-2023 ambulatory YAQUELIN SALCEDO [facility] Start: 12-13-2023 End: 12-13-2023 Encounter for other preprocedural examination YAQUELIN [facility] Start: 11-28-2023 End: 11-28-2023 ambulatory YAQUELIN [facility] Start: 11-28-2023 End: 11-28-2023 ambulatory [facility] Start: 11-28-2023 End: 11-28-2023 ambulatory [facility] Start: 10-24-2023 ambulatory Tyler Person acility:[facility] Start: 10-09-2023 End: 10-09-2023 Office outpatient new 30 minutes Denisse Chiang MD Work Phone: [facility] Comment on above: Rectal prolapse (Coni briseida Dx); Internal hemorrhoids Start: 10-09-2023 End: 10-09-2023 ambulatory [facility] Start: 09-25-2023 End: 09-25-2023 Patient encounter procedure Torres Talal Sarmini [facility] Start: 09-10-2023 End: 09-10-2023 Patient encounter procedure Torres Talal Sarmini [facility] Start: 07-11-2023 End: 07-11-2023 Patient encounter procedure Torres Talal Sarmini [facility] Start: 07-11-2023 End: 07-11-2023 Patient encounter procedure Torres Talal Sarmini [facility] Start: 08-28-2022 End: 08-31-2022 Evaluation and management of inpatient MD Yaquelin Perez Work Phone: [facility] Work Phone: Start: 08-28-2022 End: 08-28-[address] YAQUELIN PEREZ . Facility:[facility] Start: 08-16-2022 ambulatory CHASITY BOOKER Facility:[facility] Start: 06-10-2022 End: 06-11-[address] NICOLLE BALL Facility:[facility] Start: 02-14-2022 Encounter for genera l adult medical examination without abnormal findings DR YAQUELIN PEREZ . [facility] Start: 02-13-2022 End: 02-14-[address] YAQUELIN [...] End: 01-19-2022 Patient encounter procedure Chasity BOOKER [facility] Start: 10-12-2021 End: 10-13-2021 ambulatory CHASITY BOOKER Facility:[facility] Start: 08-30-2021 End: 08-30-2021 ambulatory Reddy Dewitt Other [facility] Other Start: 08-30-2021 Office outpatient vi sit 15 minutes Reddy Dewitt [facility] Start: 08-09-2021 End: 08-09-2021 Patient encounter procedure MD Yaquelin Perez Work Phone: [facility] [place] Start: 09-03-2017 End: 09-03-2017 Ambulatory JUDITH LEÓN [facility] Start: 06-11-2017 Ambulatory [facility] Start: 06-11-2017 Ambulatory [facility] Procedures Date Procedure Procedure Detail Performing Clinician Start: 01-03-2024 IGP,APTIMA HPV,AGE GDLN Sherri Gail PA Work Phone: Start: 01-03-2024 Microscopic observat ion [...] Work Phone: Start: 09-07-2017 Laparoscopic cholecystectomy Gaspar SALAM Bilateral tubal ligation Izabella er SALAM Colonoscopy Gaspar SALAM Endometrial ablation Gaspar S ALAM Hemorrhoid operation Derian Rivera Hemorrhoids (disorder) Gaspar SALAM Histology tonsillectomy Jessica BOOKER History of hernia repair Izabella BOOKER Plan of Treatment Date Care Activity Detail Author Start: 2030 Zoster Vaccines (1 o f 2) Zoster Vaccines (1 of 2) [facility] Start: 01-02-2027 Screening for malignant neoplasm of cervix [facility] Start: 12-23-2026 Diabetes mellitus screening Diabetes Screening [facility] Start: 01-12-2025 End: 01-12-2025 Patient encounter procedure 01/12/2025 3:00 PM EDT Office Visit [facility] [address] [address] Sherri Reynolds PA [address] [place], [place] [address]ash[place], [place] [id number] [facility] Start: 01-06-2024 COVID-19 Vaccine ( season) COVID-19 Vaccine ( season) [facility] Start: 01-06-2024 Influenza vaccination [facility] Start: 01-03-2024 End: 01-03-2024 Patient encounter procedure 01/03/2024 3:00 PM EDT Office Visit [facility] [address] [place] [address] Sherri Reynolds PA [address] [place], [place] [id number] Arrived [facility] Comment on above: Arrived Start: 01-03-2024 End: 03-04-2025 MG Breast - bilateral Screening Bilateral screening mammogram Imaging Routine Breast cancer screening by mammogram Expected: 01/03/2024 (Approximate), Expires: 03/04/2025 [facility] Work Phone: Comment on above: Expected: 01/03/2024 (Approximate), Expires: 03/04/2025 Start: 11-28-2023 End: 11-28-2023 Patient encounter procedure 11/28/2023 2:00 PM EDT Office Visit [facility] [address] [place] [id number] Joseph Soriano DO Cassy [address] [place] [address] [facility] Start: 01-05-2023 COVID-19 Vaccine () COVID-19 Vaccine () [facility] Start: 08-31-2022 [facility] Start: 08-28-2022 Hospital admission [facility] Start: 2020 Screening for malignant neoplasm of breast Mammogram [facility] Start: 10-18-2018 Varicella vaccination Varicell a Vaccines (1 of 2 - 13+ 2-dose series) [facility] Start: 2010 Screening for malignant neoplasm of cervix [facility] Start: 2002 DTaP/Tdap/Td Vaccine s (2 - Tdap) DTaP/Tdap/Td Vaccines (2 - Tdap) [facility] Start: 2001 Screening for malignant neoplasm of cervix [facility] Start: 1998 Diabetes mellitus screening Diabetes Screening [facility] Start: 1998 Hepatitis C screening Hepatitis C Sc reening [facility] Start: 1986 Pneumococcal Vaccine : Pediatrics (0 to 5 Years) and At-Risk Patients (6 to 64 Years) (1 of 2 - PCV) Pneumococcal Vaccine: Pediatrics (0 to 5 Years) and At-Risk Patients (6 to 64 Years) (1 of 2 - PCV) [facility] Start: 1980 IPV Vaccines (2 of 3 - 4-dose series) IPV Vaccines (2 of 3 - 4-dose series) [facility] Start: 1980 HIV screening HIV Screening [facility] Start: 1980 Lipid panel Lipid Panel [facility] Start: 1980 Yearly Adult Physical Yearly Adult P hysical [facility] End: 12-24-2023 Continuous Pulse oximetry, In Phase 1 Continuous Pulse oximetry, In Phase 1 Respiratory Care Routine Continuous until discontinued starting 12/24/2023 [facility] Work Phone: Comment on above: Continuous until dis continued starting 12/24/2023 End: 12-24-2023 Incentive spirometry Instruct Incentive spirometry Instruct Respiratory Care Routine Once for 1 Occurrences starting 12/24/2023 until 12/24/2023 [facility] Service Area Work Phone: Comment on above: Once for 1 Occurrenc es starting 12/24/2023 until 12/24/2023 Patient Education Depression, Ad ult (DC) [facility] Behavioral Health DC Instructions [facility] Work Phone: Patient referral [facility] Work Phone: Surgical pathology study [facility] Work Phone: Comment on above: Release Upon Orderin g for 1 Occurrences starting 12/24/2023, 1 completed THIN PREP TIS PAP AN D HR HPV DNA THIN PREP TIS PAP AND HR HPV DNA Pathology and Cytology Routine Well woman exam with routine gynecological exam Ordered: 01/03/2024 [facility] Comment on above: Ordered: 01/03/2024 Immunizations Immunization Date Immunization Notes Care Provider Jacki dunlap 06-02-2020 SARS-CoV-2 (COVID-19 ) mRNA-1273 vaccine Gaspar SALAM [facility] 05-05-2020 SARS-CoV-2 (COVID-19 ) mRNA-1273 vaccine Gaspar SALAM [facility] 03-25-2020 influenza virus vaccine, unspecified formulation Sherri LARKIN Work Phone: [facility] 09-20-2018 hepatitis A vaccine, adult dosage Gaspar SALAM [facility] 09-20-2018 measles, mumps and rubella virus vaccine Gaspar SALAM [facility] 04-16-2017 hepatitis B vaccine, adult dosage Gaspar SALAM [facility] 11-08-2016 hepatitis B vaccine, adult dosage Gaspar SALAM [facility] 10-04-2016 hepatitis B vaccine, adult dosage Gaspar SALAM [facility] 1980 poliovirus vaccine, unspecified formulation Denisse Chiang MD Work Phone: [facility] Work Phone: NEGATED: Highlighted row has not occurred!07-09-2023 influenza virus vaccine, unspecified formulation Torres Sarmini [facility] NEGATED: Highlighted row has not occurred!07-06-2022 influenza virus vaccine, unspecified formulation Torres Sarmini [facility] NEGATED: Highlighted row has not occurred!06-13-2021 influenza virus vaccine, unspecified formulation Gaspar SALAM [facility] Payers Date Payer Category Payer Unknown [id number] 2017 Unknown [id number] 2016 Unknown [id number] 1980 Unknown [id number] 2.16.84 [id number] 1980 Unknown [id number] 2.16.84 0.1.746119.3.579.2.593 1980 Unknown [id number] 2.16.84 0.1.578551.3.579.2.59 1980 Unknown [id number] 2.16.84 0.1.826780.3.579.2.593 1980 Unknown [id number] 2.16.84 0.1.291395.3.579.2.593 1980 Unknown [id number] 2.16.84 0.1.325204.3.579.2.593 1980 Unknown [id number] 2.16.84 0.1.324106.3.579.2.593 1980 Unknown [id number] 2.16.84 0.1.301978.3.579.2.593 1980 Unknown [id number] 2.16.8 40.1.334360.3.579.2.1244 1980 Unknown [id number] 2.16.8 40.1.403552.3.579.2.1244 1980 Unknown [id number] 2.16.8 40.1.660656.3.579.2.1244 1980 Unknown [id number] 2.16.8 40.1.000657.3.579.2.1244 1980 Unknown [id number] 2.16.8 40.1.124518.3.579.2.1244 1980 Unknown [id number] 2.16.8 40.1.034394.3.579.2.1243 1980 Unknown [id number] 2.16.8 40.1.484247.3.579.2.1242 1980 Unknown [id number] 2.16.8 40.1.378150.3.579.2.1243 1980 Unknown [id number] 2.16.8 40.1.509896.3.579.2.1243 1980 Unknown [id number] 2.16.8 40.1.544559.3.579.2.1243 1980 Unknown [id number] 2.16.8 40.1.301531.3.579.2.727 1959 Blue Cross Blue Shield [id number] 1959 Self-pay [id number] Unknown Self Pay [id number] Unknown [id number] 2.16.8 [id number] Social History Date Type Detail Facility Start: 10-10-2019 End: 09-24-2024 Tobacco smoking status NHIS Never smoked tobacco (finding) [facility] Start: 1980 Sex Assigned At Female [facility] Start: 01-15-2023 End: 12-24-2023 Sex Assigned At [facility] Other Tobacco smoking status Never [facility] consumption unknown [facility] Work Phone: Start: 1980 Sex assigned at Not on file [facility] Work Phone: Start: 09-29-2023 End: 01-22-2024 Exposure to SARS-CoV-2 (event) Not sure [facility] Start: 11-28-2023 Tobacco use and exposure Smokeless tobacco non-user [facility] Work Phone: Start: 12-24-2023 End: 01-22-2024 Alcoholic beverage intake Current drinker of alcohol (finding) [facility] Work Phone: Start: 01-15-2023 End: 12-24-2023 Alcoholic beverage intake [facility] Work Phone: Start: 12-13-2023 Alcohol Comment rarely [facility] Work Phone: Start: 01-15-2023 End: 01-03-2024 Alcoholic beverage intake Lifetime non-drinker (finding) [facility] Start: 11-19-2023 Gender identity Identifies as female gender (finding) [facility] Sexual Orientation [facility] Start: 07-25-2018 Sex Female (finding) [facility] Medical Equipment Procedure Code Equipment Code Equipment Origin al Text Equipment Identifier Dates Cervical total d isc replacement prosthesis, sterile ()[id number] FDA Start: 10-10-2019 Goals Date Patient Goal Desired Activity /State Functional Status Date Assessment Result Facility 09-24-2024 Functional Status N/A [facility] 09-25-2023 Functional Status N/A [facility] 09-10-2023 Functional Status N/A [facility] 07-11-2023 Functional Status N/A [facility] 08-31-2022 Functional status Patient at [facility] Work Phone: Mental Status Date Assessment Result Facility 08-31-2022 Cognitive function Cognitive Sta tus Patient at Baseline [facility] Work Phone: Clinical Notes 07-21-2021 to 01-22-2024 Denisse Chiang MD - 01/22/2024 3:40 PM EDTLaboratoryCHAYA Jean - 01/03/2024 3:00 PM EDTDischarge InstructionsOp Note - Denisse Chiang MD - 12/24/2023 6:05 PM EDT Note Date & Type Note Facility 01-22-2024 History of Presen t illness Narrative FELIBERTO Martinez is a 43 y.o. female who has a hx of pancolonic UC, which was diagnosed in 2006. She was started on humira, which caused lupus like symptoms. She also reports developing antibodies to humira. Patient was then switched to Entyvio from [id number]. She unfortunately lost insurance and stopped taking it. She is currently taking Mesalamine. She was referred by [facility], Dr. Rivera for possible rectal prolapse. She [...] family history of CRC or IBD Employment: [employer]; works from home. 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 traZODone (Desyrel) 50 mg tablet Take 1 [...] 01/22/2024 5:08 PM documented in this encounter [facility] Work Phone: 01-16-2024 Evaluation + Plan note Future Scheduled TestsVitamin D 25 Hydroxy 01/16/24Vitamin D 25 Hydroxy 09/24/24CBC w/ Auto Diff 09/24/24Comprehensive Metabolic Panel 09/24/24 [facility] 01-03-2024 History of Presen t illness Narrative [...] headaches Irritable bowel disease Ulcerative colitis (CMS/HCC) Social History Tobacco Use Smoking status: Never Smokeless tobacco: Not on file Substance Use Topics Alcohol use: Never Drug use: Not on file FAMILY HISTORY Family History Problem Relation Name Age of Onset No Known Problems Mother SURGICAL HISTORY Past Surgical History: Procedure Laterality Date COLONOSCOPY 08/2009 Abd Pain hx. of Inflammatory Bowel COLONOSCOPY 2006 HERNIA REPAIR 2007 TONSILLECTOMY 1986 REVIEW OF SYSTEMS Review of Systems: Review [...] nursing note reviewed. Exam conducted with a webbing weaver present. Vitals: Estimated body mass index is [...] of: CHAYA Jean documented in this encounter [facility] 12-24-2023 Hospital Discharg e instructions Denisse Chiang [...] previous diet. FOLLOW-UP: Please call office at [phone] to schedule follow-up appointment for 3-4 weeks from date of surgery. documented in this encounter [facility] Work Phone: 12-24-2023 Note Formatting of this n ote is different from the original. Excisional Hemorrhoidectomy Operative Note Date: 12/24/2023 OR Location: ST OR Name: Ramy Martinez, : 1980, Age: 43 y.o., , Sex: female Diagnosis Pre-op Diagnosis * Prolapsed internal hemorrhoids [K64.8] Post-op Diagnosis * Prolapsed internal hemorrhoids [K64.8] Procedures Excisional hemorrhoidectomy, 2 columns Surgeons * Denisse Chiang - Primary Resident/Fellow/Other Zoology Teacher: Surgeons and Role: * Krystal Cerrato PA-C [...] SURGICAL PATHOLOGY EXAM Denisse Chiang MD 12/24/2023 1816 2 : LEFT POSTERIOR HEMORRHOID Tissue HEMORRHOID SURGICAL PATHOLOGY EXAM Denisse Chiang MD 12/24/2023 1831 Staff: Pattern Duplicator: Emily Venturaub Person: Denisse Drains and/or Catheters: [...] scrubbed for the entire procedure. Denisse Chiang [facility] Work Phone: 12-24-2023 Note Formatting of this n ote is different from the original. Date: 12/24/2023 OR Location: [facility] OR Name: Ramy Martinez, : 1980, Age: 43 y.o., , Sex: female Diagnosis Pre-op Diagnosis * Prolapsed internal hemorrhoids [K64.8] Post-op Diagnosis * Prolapsed internal hemorrhoids [K64.8] Procedures Excisional hemorrhoidectomy, 2 columns Surgeons * Denisse Chiang - Primary Resident/Fellow/Other Zoology Teacher: Surgeons and Role: * Krystal Cerrato PA-C [...] PATHOLOGY EXAM Denisse Chiang MD 12/24/20231830 Staff: Pattern Duplicator: Emily Galeas Person: Denisse Findings: Enlarged right [...] scrubbed for the entire procedure. Denisse Chiang [facility] Work Phone: 12-24-2023 Miscellaneous Notes Excisional Hemorrhoidectomy Operative Note Date: 12/24/2023 OR Location: ST OR Name: Ramy Martinez, : 1980, Age: 43 y.o., , Sex: female Diagnosis Pre-op Diagnosis * Prolapsed internal hemorrhoids [K64.8] Post-op Diagnosis * Prolapsed internal hemorrhoids [K64.8] Procedures Excisional hemorrhoidectomy, 2 columns Surgeons * Denisse Chiang - Primary Resident/Fellow/Other Zoology Teacher: Surgeons and Role: * Krystal Cerrato PA-C [...] EXAM Denisse Chiang MD 12/24/2023 183 Staff: Pattern Duplicator: Emily Galeas Person: Denisse Drains and/or Catheters: * None [...] procedure. Denisse Chiang Date: 12/24/2023 OR Location: [facility] OR Name: Ramy Martinez, : 1980, Age: 43 y.o., , Sex: female Diagnosis Pre-op Diagnosis * Prolapsed internal hemorrhoids [K64.8] Post-op Diagnosis * Prolapsed internal hemorrhoids [K64.8] Procedures Excisional hemorrhoidectomy, 2 columns Surgeons * Denisse Chiang - Primary Resident/Fellow/Other Zoology Teacher: Surgeons and Role: * Krystal Cerrato PA-C [...] PATHOLOGY EXAM Denisse Chiang MD 12/24/20231830 Staff: Pattern Duplicator: Emily Galeas Person: Denisse Findings: Enlarged right [...] procedure. Denisse Chiang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
== END 2024-10-06 07:57 | disposition home or self-care (01) ==
LOC: RAD 07:57
PROVIDERS: PCP Family Medicine; Visit Provider Internal Medicine
DX: J18.9 Pneumonia, unspecified organism (principal)
CPT/HCPCS: 71046

== ENCOUNTER 2024-11-26 06:47 | Outpatient (OUT) | payer BC, SELFPAY ==
--- OUTSIDE RECORDS SUMMARY | 2024-10-06 03:30 | XMS_ITS ---
Author Organization [facility] in [place] Address [address] [place] [address] Care Team Providers Care Snow Removal/Plowing Name Role Phone Edil Martell Primary Care Provider Orestes Gerber [phone] Allergies Allergen (clinical drug ingredient) Drug/Non Drug Allergy documented on EMR Reaction Allergy Type Onset Date Status benzonatate Benzonatate hives,swelling,i tching,rash Drug Allergy Active Results Component Value Reference Range Notes XR Chest PA and Lateral (Rou megan CXR) * Reviewed date:10/06/2024 09:08:48 AM Interpretation: Performing Lab: Notes/Report: Reason For Referral Reason Chest pain Diagnosis 1 Chest pain, unspecif ied (R07.9) Referral Organization [facility] [place] Referring Provider First Name Orestes Referring Provider Last Name Zabrina Referring Provider Speciality Pulmonolog y Referred Provider Specialty Cardiology General Notes Juanito Yu 10/06 09:47:08 AM >Referral taken to [facility] Cardiology and given to Aimee Renae Riley 10/09/2024 11:18:30 AM >I called and spoke with Kim at [facility] Cardiology. Patient was contacted and scheduled for 10/20/2024 at 1045.Aimee Riley 10/09/2024 11:18:48 AM >Correction: 10/20/2024 at 1545 not 1045.Aimee Riley 10/28/2024 11:41:04 AM >I called and spoke with Kim to find out if the consult note could be faxed to our office. Kim will fax the consult note., Juanito Yu 10/28/2024 11:54:59 AM >Consult Note received via fax. Scanned to for review. Referral Priority Routine Referral Appointment Date 10/20/2024 REASON FOR VISIT 4w F/U - Asthma Medications Medication SIG (Take, Route, Frequency, Duration) Notes Start Date End Date Status Trelegy Ellipta 200-62.5-25 MCG/ACT 1 puff Inhalation Once a day for 90 days Rinse after use; Dispense #3 inhalers Active Ventolin HFA 108 (90 Base) MCG/ACT 2 puff as needed Inhalation every 4 hrs for 30 01/10/2023 Active Venlafaxine HCl ER 75 MG Oral for 30 Days Active traZODone HCl 50 MG 2 Oral qhs for 30 days Active Albuterol Sulfate (2.5 MG/3ML) 0.083% 3 mL as needed Inhalation every 6 hrs 05/21/2024 Active Adipex-P 37.5 MG 1 tablet before liyah kfast Orally Once a day 09/26/2024 Active Protonix 40 MG 1 tablet Orally Once a day for 30 days 07/30/2024 Active LaMICtal 25 MG 2 tablet Orally qd f or 30 days 01/31/2024 Active Social History Tobacco Use: Social History Observation Description Date Details (start date - stop date) Never Smoker NA - NA Tobacco Control (Standard) Question Answer Notes Tobacco use: Nonsmoker Problems Problem Type SNOMED Code ICD Code Onset Dates Problem Status W/U Status Risk Notes Problem History of diet-controlle d diabetes (Z86.39) Active confirmed Vital Signs Weight 196.8 lbs 10/06/2024 Height 65 in 10/06/2024 Blood pressure systolic 118 mm Hg 10/07/19 25 Blood pressure diastolic 83 mm Hg 025 Temperature 96.6 degrees Fahrenheit 10/07/19 25 Heart Rate 87 /min 10/06/2024 Respiratory Rate 16 /min 10/06/2024 BMI 32.75 kg/m2 10/06/2024 Oximetry 97 % 10/06/2024 Encounters Encounter Location Date Provider Diagnosis [facility] [place] [address] [place] [address] 10/06/2024 Orestes Gerber Severe persistent asthma, uncomplicated J45.50 ; Chest pain, unspecified R07.9 ; Community acquired pneumonia J18.9 ; Lung bullae J43.9 ; Peripheral eosinophilia D72.19 ; RASHAD (obstructive sleep apnea) G47.33 ; long term care pharmacist (current) use of inhaled steroids Z79.51 ; Obesity E66.9 and History of diet-controlled diabetes Z86.39 Assessments Encounter Date Diagnosis (ICD Code) Assessment Notes Treatment Notes Treatment Clinical Notes Section Notes 10/06/2024 Severe persistent asthma, uncomplicated (ICD-10 - J45.50) Prior treatment: Trelegy 200 > Trelegy 100 > Breo 100 ; On Xolair previously for urticaria History of exacerbations requiring prednisone: 05/21/2024, 07/17/2024, 08/25/2024 - the last leading to hospitalization. Patient has responded favorably to Trelegy 200 without adverse effects. Subsequent PFT is normal. Majority of symptoms resolved with exception of GOMEZ which is out of proportion to testing (GOMEZ just walking in from parking lot into the office). With normal PFT, do not feel a biologic is the best next step - I would suggest referral to cardiology for evaluation. If that returns unremarkable, then I would suggest referral to senior windows engineer for allergy testing (would be difficult to get biologic approved with normal PFT). F/U 3 months (end of December) when fall allergies are starting. 10/06/2024 Chest pain, unspecified (ICD-10 - R07.9) Patient complains of GOMEZ despite Trelegy 200 and normal PFT. She complains of accompanying chest pain which is left to sternum, stabbing in nature, can radiate to back and down left arm. Resting does not help - it can persist for up to an hour. Tachycardia can exacerbate the symptoms. She has a history of diabetes which is now diet-controlled. Paternal grandmother from cardiac issues. Given this history, question underlying cardiovascular disease. Recommended referral to cardiology - patient voiced agreement. 10/06/2024 Community acquired pneumonia (ICD-10 - J18.9) Noted infiltrates in RLL on CTA 08/25/2024. Ordering F/U CXR - will contact patient with results. If abnormal, will need CT chest. This pneumonia occurred well after the patient began experiencing chest pain - as well as the pneumonia was on the contralateral side, I do not feel the two are interconnected. 10/06/2024 Lung bullae (ICD-10 - J43.9) 4.3cm RML bulla noted on CTA chest 08/25/2024. Present on prior CT abdomen/pelvis 06/12/2023. AAT normal genotype MM. This is most consistent with a congenital bulla. Surgery is currently not indicated. Patient was counseled of increased risk of pneumothorax in general, and she was advised never to scuba dive. 10/06/2024 Peripheral eosinophilia (ICD-10 - D72.19) Eosinophils: -08/25/2024: 23.4% / 1800 -06/12/2023: 4% / 300 She has responded favorably to Trelegy 200. PFT is currently normal. There is residual GOMEZ and chest pain - a cardiac cause needs R/O first before looking into further pulmonary treatment. 10/06/2024 RASHAD (obstructive sleep apnea) (ICD-10 - G47.33) Defer to PCP. 10/06/2024 penitentiary (current) use of inhaled steroids (ICD-10 - Z79.51) Patient was counseled to rinse & gargle with water after inhaled corticosteroid use. 10/06/2024 Obesity (ICD-10 - E66.9) Patient's weight is inducing a restrictive pulmonary physiology. Weight loss indicated: Decrease calories, increase activity. 10/06/2024 History of diet-controlled diabetes (ICD-10 - Z86.39) Plan Of Treatment Medication Medication Name Sig Start Date Stop Date Notes Trelegy Ellipta 200-62.5-25 MCG/ACT 1 puff Inhalation Once a day for 90 days Trelegy Ellipta 100-62.5-25 MCG/ACT 1 puff Inhalation Once a day Treatment Notes Assessment Notes Severe persistent asthma, uncomplicated Prior treatment: Trelegy 200 > Trelegy 100 > Breo 100 ; On Xolair previously for urticaria History of exacerbations requiring prednisone: 05/21/2024, 07/17/2024, 08/25/2024 - the last leading to hospitalization. Patient has responded favorably to Trelegy 200 without adverse effects. Subsequent PFT is normal. Majority of symptoms resolved with exception of GOMEZ which is out of proportion to testing (GOMEZ just walking in from parking lot into the office). With normal PFT, do not feel a biologic is the best next step - I would suggest referral to cardiology for evaluation. If that returns unremarkable, then I would suggest referral to senior windows engineer for allergy testing (would be difficult to get biologic approved with normal PFT). F/U 3 months (end of December) when fall allergies are starting. Chest pain, unspecified Patient complains of GOMEZ despite Trelegy 200 and normal PFT. She complains of accompanying chest pain which is left to sternum, stabbing in nature, can radiate to back and down left arm. Resting does not help - it can persist for up to an hour. Tachycardia can exacerbate the symptoms. She has a history of diabetes which is now diet-controlled. Paternal grandmother from cardiac issues. Given this history, question underlying cardiovascular disease. Recommended referral to cardiology - patient voiced agreement. Community acquired pneumonia Noted infiltrates in RLL on CTA 08/25/2024. Ordering F/U CXR - will contact patient with results. If abnormal, will need CT chest. This pneumonia occurred well after the patient began experiencing chest pain - as well as the pneumonia was on the contralateral side, I do not feel the two are interconnected. Lung bullae 4.3cm RML bulla noted on CTA chest 08/25/2024. Present on prior CT abdomen/pelvis 06/12/2023. AAT normal genotype MM. This is most consistent with a congenital bulla. Surgery is currently not indicated. Patient was counseled of increased risk of pneumothorax in general, and she was advised never to scuba dive. Peripheral eosinophilia Eosinophils: -08/25/2024: 23.4% / 1800 -06/12/2023: 4% / 300 She has responded favorably to Trelegy 200. PFT is currently normal. There is residual GOMEZ and chest pain - a cardiac cause needs R/O first before looking into further pulmonary treatment. RASHAD (obstructive sleep apnea) Defer to PCP. penitentiary (current) use of i nhaled steroids Patient was counseled to rinse & gargle with water after inhaled corticosteroid use. Obesity Patient's weight is inducing a restrictive pulmonary physiology. Weight loss indicated: Decrease calories, increase activity. Referrals Referral Date Details 10/06/2024 10/06/2024, Chest pa in Next Appt Details Follow Up: 3 Months, Reason: Asthma Provider Name:Orestes Gerber, 12/31/2024 07:30:00 AM, [address] [place], [address], Procedure Notes * Category Sub-Category Detail Notes PFT Data: 09/25/2024-FEV1/F VC: 80%-FEV1: 102%-FVC: 103%-Bronchodilator response: Partial-RV: 82%-T%-113% Alpha-1 Antitrypsin Screening Date: 09/08/2024 Genotype: M/M Progress Notes * Madhuri GUSMAN MDOB:[birth year] (44 yo F)Acc No.[id number]:10/06/2024 Follow Up Patient: Madhuri PETERSEN Provider: Zari Gerber DO :1980 A ge:44 Y S ex:Female Date:10/06/2024 Address:[id number] Pcp:Edil Martell Check In:07:26 AM ESTCheck O ut:07:53 AM EST Subjective: * Chief Complaints: * 4 w F/U - Asthma * HPI: G eneral: Patient was changed from Trelegy 100 to 200 after last visit.? She states this has improved her coughing, wheezing, and chest tightness. She denies any adverse effects. P FT done 09/25/2024 was reviewed with patient - it is completely normal. Despite the response to Trelegy 200 and normal PFT, she continues to complain of dyspnea on exertion. It can occur just even walking from the car in the parking lot to this office. It is also accompanied by chest pain which is to the left of the sternum, stabbing in nature, and can radiate down left arm. She also notes when her heart rate increases, the pain occurs. She has never seen a hand striper. Reviewed AAT is normal genotype MM. MA Intake Comments:. Patient presents for a follow-up for Asthma. Patient was started on Trelegy 200 and reports great benefit.Patient states the Trelegy 200 worked better than Trelegy 100. Patient complains of SOB & Chest Pain today. Patient denies cough or wheezing today. Patient is following up after PFT performed at [facility]. Patient is scheduled for a Colonoscopy tomorrow. * ROS: G eneral/Constitutional: Fever or sweats d enies. C hange of appetite d enies. C hills d enies. W eight Change d enies. H EENT: Dry mouth d enies. S ore throat d enies. O ral Ulcers d enies. P ost Nasal Drip D enies. C ongestion D enies. H oarseness?Denies. C ardiovascular: Tachycardia a dmits. E franky D enies. C hest pain l eft of sternum chest pain, stabbing, radiates to back and down left arm. P alpitations d enies. R espiratory: Chest tightness i mproved with Trelegy 200. D yspnea a dmits. C ough i mproved with Trelegy 200. H emoptysis d enies. W heezing r esolved with Trelegy 200. G astrointestinal: Acid Reflux/GERD/Heartburn d enies. D ysphagia d enies. M usculoskeletal: Arthralgias/joint pain D enies. S kin: Easy bruising d enies. R roberta d enies. ? N eurologic: Seizures d enies. T remor d enies. H ematology: Abnormal Bleeding d enies. P sychiatric: Anxiety d enies. * Active Problem List E66.9 Obesity Modified On:09/08/2024U Status:confirmed J18.9 Community acquired p neumonia Modified On:09/08/2024U Status:confirmed J43.9 Lung bullae Modified On:09/08/2024U Status:confirmed Z86.39 History of diet-cont rolled diabetes Modified On:10/06/2024/U Status:confirmed D72.19 Peripheral eosinophi steven Modified On:09/08/2024U Status:confirmed J45.50 Severe persistent as thma, uncomplicated Modified On:09/08/2024/U Status:confirmed G47.33 RASHAD (obstructive sle ep apnea) Modified On:09/08/2024W/U Status:confirmed T14.91XA Suicide attempt, ini tial encounter Modified On:09/05/2022W/U Status:confirmed Z79.51 penitentiary (current) use of inhaled steroids Modified On:09/08/2024W/U Status:confirmed Z00.00 Well adult Modified On:09/26/2024W/U Status:confirmed * Medical History: * Surgical History: T onsillectomy Cyst Removal C Section X 1 Hernia Repair Neck Surgery cholecystectomy endometrial ablation tubal ligation * Hospitalization/Major Diagno stic Procedure: A sthma Exacerbation-[facility] 08/25/2024 * Family History: F ather: alive, hypertension, diagnosed with Unspecified essential hypertension. M other: , lung cancer, Brain Cancer, chronic obstructive pulmonary disease, diagnosed with Other malignant neoplasm of unspecified site. S ister(s): alive. S on(s): alive. P aternal Grandmother: stroke, diagnosed with Unspecified heart disease. 1 sister(s) - healthy. 2 son(s) - healthy. . * Social History: T obacco Use: T obacco Control (Standard) T obacco use: N onsmoker Electronic Cigarette use C urrent user N o * Medications: T akingAdipex-P(Phentermine HCl) 37.5 MG Tablet 1 tablet before breakfast Orally Once a day Albuterol Sulfate (2.5 MG/3ML) 0.083% Nebulization Solution 3 mL as needed Inhalation every 6 hrs LaMICtal(lamoTRIgine) 25 MG Tablet 2 tablet Orally qd Protonix(Pantoprazole Sodium) 40 MG Tablet Delayed Release 1 tablet Orally Once a day traZODone HCl 50 MG Tablet 2 Oral qhs Trelegy Ellipta(Wlxjgapesmi-Scaxsglpm-Wrzxnc) 200-62.5-25 MCG/ACT Aerosol Powder Breath Activated 1 puff Inhalation Once a day Venlafaxine HCl ER 75 MG Capsule Extended Release 24 Hour Oral Ventolin HFA(Albuterol Sulfate HFA) 108 (90 Base) MCG/ACT Aerosol Solution 2 puff as needed Inhalation every 4 hrs Taking Adipex-P(Phentermine HCl) 37.5 MG Tablet 1 tablet before breakfast Orally Once a day Taking Albuterol Sulfate (2.5 MG/3ML) 0.083% Nebulization Solution 3 mL as needed Inhalation every 6 hrs Taking LaMICtal(lamoTRIgine) 25 MG Tablet 2 tablet Orally qd Taking Protonix(Pantoprazole Sodium) 40 MG Tablet Delayed Release 1 tablet Orally Once a day Taking traZODone HCl 50 MG Tablet 2 Oral qhs Taking Trelegy Ellipta(Qjjwcpxvafz-Rahzloarm-Zbjvss) 200-62.5-25 MCG/ACT Aerosol Powder Breath Activated 1 puff Inhalation Once a day Taking Venlafaxine HCl ER 75 MG Capsule Extended Release 24 Hour Oral Taking Ventolin HFA(Albuterol Sulfate HFA) 108 (90 Base) MCG/ACT Aerosol Solution 2 puff as needed Inhalation every 4 hrs Not-Taking/PRNTrelegy Ellipta(Qfyndlanxzv-Npdkfwvjm-Sqgyvu) 100-62.5-25 MCG/ACT Aerosol Powder Breath Activated 1 puff Inhalation Once a day Medication List reviewed and reconciled with the patientNot-Taking/PRN Trelegy Ellipta(Ztlvhgfzfdu-Shfpfkadj-Sgfxvs) 100-62.5-25 MCG/ACT Aerosol Powder Breath Activated 1 puff Inhalation Once a day Medication List reviewed and reconciled with the patient * Allergies: B enzonatate: hives,swelling,itching,rashno[Allergies Verified] Objective: * Vitals: W t:196.8lbs, Ht: 65 in, BP:sittin/83mm Hg, Temp:Forehead:96.6F, HR:87/min, RR:16/min, BMI:32.75Index, Oxygen sat %:Room Air:97%, Ht-cm: 165.1 cm, Wt-k.27 kg. * Examination: E xam: GENERAL APPEARANCE: A ppears stated age. Skin N ormal. Mouth P ink and moist. No oral candidiasis. Oropharynx M allampati Class III. Trachea M idline. Chest N ormal. Respiratory Normal M ovements, E ffort N ormal. Auscultation C lear breath sounds without wheezes, crackles, or rhonchi. Cardiac R egular rate and rhythm. Gastrointestinal N ormal. Vascular N o edema. Musculoskeletal N ormal posture. Neurological F ocal, intact. Psychiatric A lert and oriented x3. Mentation/Cognition N ormal. Assessment: * Assessment: 1. S evere persistent asthma, uncomplicated - J45.50 (Primary) 2 . C hest pain, unspecified - R07.9 3 . C ommunity acquired pneumonia - J18.9 ?4. L mee bullae - J43.9 5 . P eripheral eosinophilia - D72.19 6 . O SA (obstructive sleep apnea) - G47.33 7 . L franco term (current) use of inhaled steroids - Z79.51 8 . O besity - E66.9 9 . H istory of diet-controlled diabetes - Z86.39 Plan: * Treatment: 2. C hest pain, unspecified Notes: Patient complains of GOMEZ despite Trelegy 200 and normal PFT. She complains of accompanying chest pain which is left to sternum, stabbing in nature, can radiate to back and down left arm. Resting does not help - it can persist for up to an hour. Tachycardia can exacerbate the symptoms. She has a history of diabetes which is now diet-controlled. Paternal grandmother from cardiac issues. Given this history, question underlying cardiovascular disease. Recommended referral to cardiology - patient voiced agreement. Referral To:Cardiology Reason:Chest pain 3. C ommunity acquired pneumonia I maging: XR Chest PA and Lateral (Routine CXR) * (Performed Date - 10/06/2024) Notes: Noted infiltrates in RLL on CTA 08/25/2024. Ordering F/U CXR - will contact patient with results. If abnormal, will need CT chest. This pneumonia occurred well after the patient began experiencing chest pain - as well as the pneumonia was on the contralateral side, I do not feel the two are interconnected. 4. L mee bullae Notes: 4.3cm RML bulla noted on CTA chest 08/25/2024. Present on prior CT abdomen/pelvis 06/12/2023. AAT normal genotype MM. This is most consistent with a congenital bulla. Surgery is currently not indicated. Patient was counseled of increased risk of pneumothorax in general, and she was advised never to scuba dive. 5. P eripheral eosinophilia Notes: Eosinophils: -08/25/2024: 23.4% / 1800 -06/12/2023: 4% / 300 She has responded favorably to Trelegy 200. PFT is currently normal. There is residual GOMEZ and chest pain - a cardiac cause needs R/O first before looking into further pulmonary treatment. 6. O SA (obstructive sleep apnea) Notes: Defer to PCP. 7. L franco term (current) use of inhaled steroids Notes: Patient was counseled to rinse & gargle with water after inhaled corticosteroid use. 8. O besity Notes: Patient's weight is inducing a restrictive pulmonary physiology. Weight loss indicated: Decrease calories, increase activity. * Procedures: A lpha-1 Antitrypsin: Screening Date: 0 09/08/2024. Genotype: M /M. P FT: Data: 09/25/2024 -FEV1/FVC: 80% -FEV1: 102% -FVC: 103% -Bronchodilator response: Partial -RV: 82% -T% -113%. * Procedure Codes: * Preventive Medicine: COVID Vaccination: H as patient had COVID Vaccination? COVID Vaccination Y es 06/02/2020 Immunization Status: P neumovacc P t Refused. I nfluenza P t Refused. Screenings/Counseling: F ALL RISK SCREENING Fall Risk Assessment: N o falls in the past year Are you afraid of falling? N o T OBACCO ACTION PLAN Exclusion: M edical Reason Non Smoker Type of Medical Reason: N ot indicated F LUANN EXCLUSION Reason: P atient Reason refused/declined Type of Patient Reason: D rug declined by patient B FL ACTION PLAN Above Normal BMI Follow-up D ietary management education, guidance, and counseling * Follow Up: 3 Months (Reason: Asthma) * * Sign off status: Completed Visit Status: C HK (Check Out) true * Provider: Zari Gerber DO Date: 0 10/06/2024 Generated for Juni felipe/Jasmyn/Finesseitting on: 0 11/26/2024 06:49 AM EDT History and Physical Notes * HPI (History of Present Illness) Category Sub-Category Detail Notes Category Not es General Patient present s for a follow-up for Asthma. Patient was started on Trelegy 200 and reports great benefit.Patient states the Trelegy 200 worked better than Trelegy 100. Patient complains of SOB & Chest Pain today. Patient denies cough or wheezing today. Patient is following up after PFT performed at [facility]. Patient is scheduled for a Colonoscopy tomorrow. Examination Category Sub-Category Detail Notes Category Not es Exam GENERAL APPEARANCE: Appears stated age Skin Normal Mouth [place] and moist. No o ral candidiasis Trachea Midline Chest Normal Respiratory Normal Movements, Ef fort Normal Auscultation Clear breath sounds without wheezes, crackles, or rhonchi Cardiac Regular rate and rhy thm Gastrointestinal Normal Vascular No edema Musculoskeletal Normal posture Neurological Focal, intact Psychiatric Alert and oriented x 3 Mentation/Cognition Normal Oropharynx Mallampati Class III Consultation Request Notes Referral Date Referring Provider Referred Provider Not es 10/06/2024 Orestes Gerber , Chest pain
--- OUTSIDE RECORDS SUMMARY | 2024-10-06 06:08 | XMS_ITS ---
Author Organization [facility] in [place] Address [address] [place] [address] Care Team Providers Care Sizing Sprayer Name Role Phone Edil Martell Primary Care Provider Orestes Gerber [phone] REASON FOR VISIT CXR Result Encounters Encounter Location Date Provider Diagnosis [facility] [place] [address] [place] [address] 10/06/2024 Orestes Gerber Plan Of Treatment Next Appt Details Provider Name:Orestes Gerber, 12/31/2024 07:30:00 AM, [address] [place], [address], Progress Notes * Madhuri GUSMAN MDOB:[birth year] (44 yo F)Acc No.[id number]:10/06/2024 Patient: Madhuri PETERSEN :1980 A ge:44 Y S ex:Female Address:[address] [place] [address] * true * Date: Generated for Juni felipe/Jasmyn/eTransmitting on: 11/26/2024 06:49 AM EDT
--- OUTSIDE RECORDS SUMMARY | 2024-11-03 13:00 | XMS_ITS ---
Author Organization [facility] in [place] Address [address] [place] [address] Care Team Providers Care Staffing Account Manager Name Role Phone Edil Martell Primary Care [...] 11/03/2024 Encounters Encounter Location Date Provider Diagnosis [facility] [address] [place] [address] 11/03/2024 Edil Martell History of diet-controlled diabetes Z86.39 Assessments Encounter Date Diagnosis (ICD Code) Assessment Notes Treatment Notes Treatment Clinical Notes Section Notes 11/03/2024 History of diet-controlled diabetes (ICD-10 - Z86.39) Plan Of Treatment Medication Medication Name Sig Start Date Stop Date Notes Adipex-P 37.5 MG 1 tablet before liyah kfast Orally Once a day 11/03/2024 Next Appt Details Provider Name:Orestes Gerber, 12/31/2024 07:30:00 AM, [address] [place], [address], Progress Notes * Madhuri GUSMAN MDOB:[birth year] (44 yo F)Acc No.[id number]:11/03/2024 Progress Note Patient: Madhuri PETERSEN Provider: Robert Martell ([facility])MD :1980 A ge:44 Y S ex:Female Date:11/03/2024 Address[address] [facility] Check In:04:46 PM ESTCheck O ut:05:34 PM [...] enies. n ose bleeds d enies. n leocnio congestion d enies. 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 Modified On:09/08/2024 Status:confirmed Z86.39 History of diet-cont rolled diabetes Modified On:10/06/2024 Status:confirmed D72.19 Peripheral eosinophi steven Modified On:09/08/2024 Status:confirmed J45.50 Severe persistent as thma, uncomplicated Modified On:09/08/2024 Status:confirmed G47.33 RASHAD (obstructive sle ep apnea) Modified On:09/08/2024U Status:confirmed T14.91XA Suicide attempt, ini tial encounter Modified On:09/05/2022 Status:confirmed 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 Modified On:09/08/2024 Status:confirmed Z00.00 Well adult Modified On:09/26/2024 Status:confirmed * Medical History: * Surgical History: T onsillectomy Cyst Removal C Section X 1 Hernia Repair Neck Surgery cholecystectomy endometrial ablation tubal ligation Colonoscopy 10/07/2024 * Hospitalization/Major Diagno stic Procedure: A sta Exacerbation-[facility] 08/25/2024 * Family History: F ather: [...] 50 MG Tablet 2 Oral qhs Trelegy Ellipta(Ghtfdtvshif-Gtdkzzpgh-Behexc) 200-62.5-25 MCG/ACT Aerosol Powder Breath Activated 1 [...] MG Tablet 2 Oral qhs Taking Trelegy Ellipta(Cvdfmvvaeia-Mbwkadlap-Ijcozj) 200-62.5-25 MCG/ACT Aerosol Powder Breath Activated 1 [...] Procedure Codes: * Preventive Medicine: Screenings/Counseling: B SC ACTION PLAN Above Normal BMI Follow-up D ietary management education, guidance, and counseling See treatment section of progress note for complete details of management plan. * * Sign off status: Completed Visit Status: C HK (Check Out) true * Provider: Robert Martell ([facility])MD Date: 11/03/2024 Generated for Printi ng/Fanikolasg/eTransmitting on: 11/26/2024 06:49 AM EDT History and Physical [...]
--- OUTSIDE RECORDS SUMMARY | 2024-11-26 06:49 | XMS_ITS | Clinical Summary ---
Author Organization [facility] Address [address] [place] [address] Care Team Providers Care Engagement Manager Name Role Phone Bipin Martell MD Primary Care Provider [phone] Allergies Active Allergy Reactions Criticality Noted Date Comments Benzonatate Rash,Swelling High 10/20/2024 Medications mesalamine ER (Apriso) 0.375 gram 24 hr capsule Take 1.5 g by mouth in the morning. Do not crush or chew. Active traZODone (Desyrel) 50 mg tablet Take 50 mg by mouth at bedtime. Active venlafaxine XR (Effexor-XR) 75 mg 24 hr capsule Take 75 mg by mouth in the morning. Active lamoTRIgine (LaMICtal) 25 mg tablet Take 2 tablets by mouth in the morning. Active Protonix 40 mg EC tablet Take 40 mg by mouth before breakfast. 09/24/2024 Active albuterol 90 mcg/actuation inhaler Inhale 2 puffs every 4 (four) hours if needed. Active fluticasone-ume clidin-vilanter (Trelegy Ellipta) 200-62.5-25 mcg blister with device Inhale 1 puff in the morning. Active Active Problems Problem Noted Date Diagnosed Date Acute cholecystitis 10/20/2024 Asthma 10/20/2024 Overview (10/20/2024): no problems BMI 38.0-38.9,adult 10/20/2024 Choledocholithiasis 10/20/2024 Chronic pancolonic ulcerative colitis 10/20/2024 Diabetes mellitus 10/20/2024 Prolapsed internal hemorrhoids 10/16/2023 Family history of malignant neoplasm 02/03/2022 Ulcerative colitis 06/11/2017 Overview (10/20/2024): Added automatically from request for surgery [id number] Severe obesity with body mas s index (BMI) of 35.0 to 39.9 with serious comorbidity 09/25/2016 Overview (10/20/2024): 08/05/22 IMO Update Encounters Date Type Department Care Team Description 10/20/2024 3:45 PM EDT Office Visit [facility] [place] [address] [place] [address] Koffi Hooks MD Palpitations (Primary Dx); Atypical chest pain; Shortness of breath; Elevated blood pressure reading without diagnosis of hypertension from Last 3 Months Family History Medical History Relation Name Comments Hypertension Father Lung cancer Mother Coronary artery disease Paternal Grandmother Stroke Paternal Grandmother Relation Name Status Comments Father Alive Mother Paternal Grandmother Social History Tobacco Use Types Packs/Day Years Used Date Smoking Tobacco: Never Smokeless Tobacco: Never Tobacco Cessation:Counseling Given: Not Answered Alcohol Use Standard Drinks/Week Comments Yes 0 (1 standard drink = 0.6 oz pur e alcohol) occasioanl Comments Unknown Sex and Gender Information Value Date Recorded Sex Assigned at Not on file Legal Sex Female 10:54 PM EDT Gender Identity Not on file Sexual Orientation Not on file Last Filed Vital Signs Vital Sign Reading Time Taken Comments Blood Pressure 129/91 10/20/2024 4:09 PM EDT Pulse 86 10/20/2024 4:09 PM EDT Temperature - - Respiratory Rate - - Oxygen Saturation 98% 10/20/2024 4:09 PM EDT Inhaled Oxygen Concentration - - Weight 91.2 kg (201 lb) 10/20/2024 4:09 PM EDT Height 165.1 cm (5' 5 ) 10/20/2024 4:09 PM EDT Body Mass Index 33.45 10/20/2024 4:09 PM EDT Plan of Treatment Upcoming Encounters Date Type Department Care Team (Late st Contact Info) Description 12/22/2024 3:00 PM EDT Office Visit [facility] [address] [place] [address] Koffi Hooks MD [address] [facility] [address] Health Maintenance Due Date Last Done Comments Diabetes: Hemoglobin A1C 1980 IPV Vaccines (2 of 3 - 4-dos e series) 1980 1980 Diabetes: Retinopathy Screening 1990 Depression Screening 1992 Varicella Vaccines (1 of 2 - 13+ 2-dose series) 1993 Diabetes: Urine Protein Screening 07/16/1999 Pneumococcal Vaccine: Pediatrics (0 to 5 Years) and At-Risk Patients (6 to 64 Years) (1 of 2 - PCV) 07/16/1999 Adult Tetanus 2002 HPV/Cotest 2010 Mammogram 2020 COVID-19 Vaccine (3 - 2023-2 5 season) 2024 06/02/2020, 05/05/2020 Influenza Vaccine (#1) 2025 Cervical Cancer Screening 01/02/2027 Pap Smear 01/02/2027 01/03/2024 Zoster Vaccines (1 of 2) 2030 Hepatitis B Vaccines Completed 04/16/2017, 11/08/2016, 10/04/2016 HIB Vaccines Aged Out No longer eligi ble based on patient's age to complete this topic HPV Vaccines Aged Out No longer eligi ble based on patient's age to complete this topic Meningococcal B Vaccine Aged Out No l onger eligible based on patient's age to complete this topic Meningococcal Vaccine Aged Out No deedee jose de jesus eligible based on patient's age to complete this topic Rotavirus Vaccines Aged Out No longer eligible based on patient's age to complete this topic Insurance [facility] Care Teams Engagement Manager Relationship Specialty Start Date End Date Bipin Martell MD [address] [facility] [place] [address] PCP - General Family Medicine 10/17/24
--- OUTSIDE RECORDS SUMMARY | 2024-11-26 06:50 | XMS_ITS | Clinical Summary ---
Author Organization [facility] Address [address] [place] [address] Care Team Providers Care Salesperson Corsets Name Role Phone Unavailable Primary Care Provider Unavailabl e Allergies No known active allergies Medications mesalamine ER (Apriso) 0.375 g 24 hr capsule Take 1.5 g by mouth Daily Active lamoTRIgine (LaMICtal) 25 MG tablet Take 50 mg by mouth in the morning. Active traZODone (Desyrel) 50 MG tablet Take 50 mg by mouth at bedtime Active venlafaxine XR (Effexor XR) 75 MG 24 hr capsule Take 75 mg by mouth in the morning. Active Family History Medical History Relation Name Comments No Known Problems Mother Relation Name Status Comments Mother Alive Social History Tobacco Use Types Packs/Day Years Used Date Smoking Tobacco: Never Tobacco Cessation:Counseling Given: Not Answered Alcohol Use Standard Drinks/Week Comments Never 0 (1 standard drink = 0.6 oz pur e alcohol) Comments Unknown Sex and Gender Information Value Date Recorded Sex Assigned at Female 11/19/2023 4:25 PM EDT Legal Sex Female 6:51 PM EDT Gender Identity Female 11/19/2023 4:25 PM EDT Sexual Orientation Not on file Last Filed Vital Signs Vital Sign Reading Time Taken Comments Blood Pressure 110/76 01/03/2024 3:07 PM EDT Pulse - - Temperature - - Respiratory Rate - - Oxygen Saturation - - Inhaled Oxygen Concentration - - Weight 80.8 kg (178 lb 1.9 oz) 01/03/2024 3:07 P M EDT Height 165.1 cm (5' 5 ) 04/16/2020 12:00 PM EST Body Mass Index 29.64 04/16/2020 12:00 PM EST Plan of Treatment Upcoming Encounters Date Type Department Care Team (Late st Contact Info) Description 01/12/2025 3:00 PM EDT Office Visit [facility] [address] [place] [address] Sherri Reynolds PA [address] [place] [address] Health Maintenance Due Date Last Done Comments HPV/Cotest 2010 Influenza Vaccine (#1) 2025 03/25/2020 Mammogram 01/10/2025 01/11/2024 Cervical Cancer Screening 01/02/2027 Pap Smear 01/02/2027 01/03/2024 Procedures Procedure Name Priority Date/Time Associated Diagnosis Comments MM TOMOSYNTHESIS SCREENING BI 01/11/2024 9:13 AM EDT PAP SMEAR Routine 01/03/2024 12:00 AM EDT from Last 3 Months or Most Recently Relevant to Health Maintenance Results * MM TOMOSYNTHESIS SCREENING BI (01/11/2024 9:13 AM EDT) Anatomical Region Laterality Modality Other 01/11/2024 9:13 AM EDT Narrative 01/11/2024 9:14 AM EDT The [address] [address] Mammography Report Signed Patient: RAMY GUSMAN MR#: [id number] : 1980 Acct:[id number] Age/Sex: 43 / F ADM Date: 01/08/24 Loc: MAMMO Attending Dr: Sherri Reynolds Ordering Physician: Sherri Reynolds Results: Date of Service: 01/08/24 Follow Up: Procedure(s): MM tomosynthesis screening BI Accession Number(s): [id number] cc: Sherri Reynolds; Bipin Martell M.D. Patient Name: RAMY GUSMAN MR#: [id number] : 1980 Exam Date: 01/08/2024 Ordering Doctor: CHAYA Reynolds . RADIOLOGY REPORT PROCEDURE: MM TOMOSYNTHESIS SCREENING BI COMPARISON: MG MAMM SCREEN 3D FAISAL CAD, 02/01/2022. INDICATIONS: Screening mammogram Calculator Name NCI Breast Cancer Risk Assessment Tool 5 Year Breast Cancer Risk 0.50% Lifetime Breast Cancer Risk 7.10% Personal Breast Cancer No Personal Ovarian Cancer No Treatments None Family Cancers Mother with lung/brain cancer at age 57; Grandmother-maternal with uterine cancer at age 40. LOCATION: [facility] BREAST COMPOSITION: The breasts are heterogeneously dense,which may obscure small masses. FINDINGS: DIAGNOSTIC CATEGORY 1--NEGATIVE. RIGHT BREAST: No significant suspicious finding. No significant change has occurred. LEFT BREAST: No significant suspicious finding. No significant change has occurred. RECOMMENDATIONS: ROUTINE MAMMOGRAM AND CLINICAL EVALUATION IN 12 MONTHS. PLEASE NOTE: A NORMAL MAMMOGRAM DOES NOT EXCLUDE THE POSSIBILITY OF BREAST CANCER. A CLINICALLY SUSPICIOUS PALPABLE LUMP SHOULD BE BIOPSIED. Dictated by: Evan Fernández M.D. on 01/11/2024 at 09:08 Approved by: Evan Fernández M.D. on 01/11/2024 at 09:13 Dictated By: Evan Fernández M.D. Signed By: 01/11/24913 DD/ 2 TD/TT: Photogrammetric Tech: Procedure Note Radiology, Radiologist, MD - 01/11/2024 [place] [address] Mammography Report Signed Patient: RAMY GUSMAN MMR#: [id number] : 1980Acct:[id number] Age/Sex: 43 / FADM Date: 01/08/24 Loc: MAMMO Attending Dr: Sherri Reynolds Ordering Physician: Sherri ReynoldsResults: Date of Service: 01/08/24Follow Up: Procedure(s): MM tomosynthesis screening BI Accession Number(s): [id number] cc: Bipin Perry M.D. Patient Name: RAMY GUSMAN MR#: [id number] : 1980 Exam Date: 01/08/2024 Ordering Doctor: CHAYA Reynolds . RADIOLOGY REPORT PROCEDURE: MM TOMOSYNTHESIS SCREENING BI COMPARISON: MG MAMM SCREEN 3D FAISAL CAD, 02/01/2022. INDICATIONS: Screening mammogram Calculator Name NCI Breast Cancer Risk Assessment Tool 5 Year Breast Cancer Risk 0.50% Lifetime Breast Cancer Risk 7.10% Personal Breast Cancer No Personal Ovarian Cancer No Treatments None Family Cancers Mother with lung/brain cancer at age 57; Grandmother-maternal with uterine cancer at age 40. LOCATION: [facility] BREAST COMPOSITION: The breasts are heterogeneously dense,which may obscure small masses. FINDINGS: DIAGNOSTIC CATEGORY 1--NEGATIVE. RIGHT BREAST: No significant suspicious finding. No significant changehas occurred. LEFT BREAST: No significant suspicious finding. No significant changehas occurred. RECOMMENDATIONS: ROUTINE MAMMOGRAM AND CLINICAL EVALUATION IN 12 MONTHS. PLEASE NOTE: A NORMAL MAMMOGRAM DOES NOT EXCLUDE THE POSSIBILITY OFBREAST CANCER. A CLINICALLY SUSPICIOUS PALPABLE LUMP SHOULD BE BIOPSIED. Dictated by: Evan Fernández M.D. on 01/11/2024 at 09:08 Approved by: Evan Fernández M.D. on 01/11/2024 at 09:13 Dictated By: Evan Fernández M.D. Signed By:01/11/24913 DD/ 2 TD/TT: Photogrammetric Tech: us Sherri [facility] Final Result * Pap Smear (01/03/2024 12:00 AM EDT) Swab Cervical swab / Unknown [facility]oo[facility] CYTOLOGY ORDERABLES Final Result EXTERNAL LAB from Last 3 Months or Most Recently Relevant to Health Maintenance Insurance
--- OUTSIDE RECORDS SUMMARY | 2024-11-26 06:50 | XMS_ITS | Clinical Summary ---
Author Organization [facility] Address [address] [place] [address] Phone Care Team Providers Care Inspection Machine Tender Name Role Phone Bipin Martell MD Primary Care Provider [phone] Allergies No known active allergies Medications mesalamine ER (Apriso) 0.375 gram 24 hr capsule Active LORazepam (Ativan) 0.5 mg tablet Take 1 tablet (0.5 mg) by mouth once daily as needed for anxiety. 01/02/2023 Active lamoTRIgine (LaMICtal) 25 mg tablet Take 2 tablets (50 mg) by mouth once daily. Active albuterol 90 mcg/actuation inhaler INHALE 2 PUFFS BY MOUTH EVERY 4 HOURS IF NEEDED Active venlafaxine XR (Effexor-XR) 75 mg 24 hr capsule Take 1 capsule (75 mg) by mouth once daily. Active traZODone (Desyrel) 50 mg tablet Take 1 tablet (50 mg) by mouth once daily at bedtime. Active geriatric multivitamins-m inerals 0.5-0.6-7-0.7 mg elixir Take 5 mL by mouth once daily. Active riboflavin, vitamin B2, (VITAMIN B-2 ORAL) Take by mouth 1 (one) time per week in the control clerk auditing.. Active Active Problems Problem Noted Date Diagnosed Date Prolapsed internal hemorrhoids 10/16/2023 Family History Medical History Relation Name Comments Brain cancer Mother Lung cancer Mother Relation Name Status Comments Mother Social History Tobacco Use Types Packs/Day Years Used Date Smoking Tobacco: Never Smokeless Tobacco: Never Tobacco Cessation:Counseling Given: Not Answered Alcohol Use Standard Drinks/Week Comments Yes 1 (1 standard drink = 0.6 oz pur e alcohol) rarely Comments Unknown Sex and Gender Information Value Date Recorded Sex Assigned at Not on file Legal Sex Female 1:06 PM EDT Gender Identity Not on file Sexual Orientation Not on file Last Filed Vital Signs Vital Sign Reading Time Taken Comments Blood Pressure 117/81 01/22/2024 3:40 PM EDT Pulse 76 01/22/2024 3:40 PM EDT Temperature 36.2 C (97.2 F) 12/24/2023 8:00 PM EDT Respiratory Rate 17 12/24/2023 8:30 PM EDT Oxygen Saturation 99% 12/24/2023 8:30 PM EDT Inhaled Oxygen Concentration - - Weight 81.2 kg (179 lb) 01/22/2024 3:40 PM EDT Height 165.1 cm (5' 5 ) 01/22/2024 3:40 PM EDT Body Mass Index 29.79 01/22/2024 3:40 PM EDT Plan of Treatment Health Maintenance Due Date Last Done Comments HIV Screening 1980 Lipid Panel 1980 IPV Vaccines (2 of 3 - 4-dos e series) 1980 1980 Varicella Vaccines (1 of 2 - 13+ 2-dose series) 1993 Hepatitis C Screening 1998 Pneumococcal Vaccine: Pediatrics and At-Risk Adult Patients (1 of 2 - PCV) 07/16/1999 HPV/Cotest 2001 DTaP/Tdap/Td Vaccines (2 - Tdap) 2002 1980 HPV Vaccines (1 - 3-dose standard series) 07/16/2007 Mammogram 2020 COVID-19 Vaccine (3 - 2023-2 5 season) 2024 06/02/2020, 05/05/2020 Yearly Adult Physical 01/03/2025 01/03/2024 Influenza Vaccine (#1) 2025 Diabetes Screening 12/23/2026 12/24/2023, 12/13/2023 Cervical Cancer Screening 01/02/2027 Pap Smear 01/02/2027 01/03/2024 Zoster Vaccines (1 of 2) 2030 Hepatitis B Vaccines Completed 04/16/2017, 11/08/2016, 10/04/2016 Hepatitis A Vaccines Aged Out 09/20/2018 No long er eligible based on patient's age to complete this topic MMR Vaccines Completed 09/20/2018 HIB Vaccines Aged Out No longer eligi ble based on patient's age to complete this topic Meningococcal Vaccine Aged Out No deedee jose de jesus eligible based on patient's age to complete this topic Rotavirus Vaccines Aged Out No longer eligible based on patient's age to complete this topic Medical Devices Implanted Type Area Interventional Physiatrist Device Identifier Shelf Expiration Date Model / Serial / Lot Mesh Mesh Abdomen Procedures Procedure Name Priority Date/Time Associated Diagnosis Comments POCT GLUCOSE Routine 12/24/2023 12:13 PM EDT from Last 3 Months or Most Recently Relevant to Health Maintenance Results * POCT GLUCOSE (12/24/2023 12:13 PM EDT) POCT Glucose 99 74 - 99 mg/dL 12/24/2023 12:15 PM EDT [facility] Blood Capillary blood specimen / Unknown 12/24/2023 12:13 PM EDT 12/24/2023 12:15 PM EDT Marcell Chiang MD LAB POINT OF CARE TE ST DOCKED DEVICE UNSOLICITED RESULTS Final Result [facility] [id number] [id number] from Last 3 Months or Most Recently Relevant to Health Maintenance [place] [address] [place] [address] [employer] [facility] Advance Directives For more information, please contact: [phone] (Available ) * Full Code (Latest Code Status on File) Date Activated Date Inactivated Comments 12/24/2023 12:03 PM Question Answer Comments Plan of Care: Code Status Discussion Not Compl eted Decision Maker: Provider Rationale: Patient condition does not warra nt discussion Care Teams Inspection Machine Tender Relationship Specialty Start Date End Date Bipin Martell MD [address] [facility] [place] [address] PCP - General Family Medicine 09/28/23
--- OUTSIDE RECORDS SUMMARY | 2024-11-26 06:50 | XMS_ITS | Patient Health Record ---
Author Organization [facility] in [place] Address [address] [place] [address] Care Team Providers Care Windows System Admin Name Role Phone Edil Martell Primary Care Provider Soumya Alvarado Levi [phone] Allergies Allergen (clinical drug ingredient) Drug/Non Drug Allergy documented on EMR Reaction Allergy Type Onset Date Status benzonatate Benzonatate hives,swelling,i tching,rash Drug Allergy Active Results Component Value Reference Range Notes XR Chest PA and Lateral (Rou megan CXR) * Reviewed date:10/06/2024 09:08:48 AM Interpretation: Performing Lab: Notes/Report: Result 1 Reviewed date:09/01/2024 07:46:23 AM Interpretation: Performing Lab: Notes/Report: [facility] , Result 1 See Below For Report Result 1 Rare gram positive cocci Performing Lab: see note LC - [facility] LB Result 2 Reviewed date:09/01/2024 07:46:23 AM Interpretation: Performing Lab: Notes/Report: [facility] , Result 2 See Below For Report Result 2 MACHINE TOOL OPERATOR Performing Lab: see note LC - [facility] LB Result 3 Reviewed date:09/01/2024 07:46:23 AM Interpretation: Performing Lab: Notes/Report: [facility] , Result 3 See Below For Report Result 3 MACHINE TOOL OPERATOR Performing Lab: see note LC - [facility] LB Result 4 Reviewed date:09/01/2024 07:46:23 AM Interpretation: Performing Lab: Notes/Report: [facility] , Result 4 See Below For Report Result 4 MACHINE TOOL OPERATOR Performing Lab: see note LC - [facility] LB Gram Stain Evaluation Reviewed date:08/31/2024 01:16:26 PM Interpretation: Performing Lab: Notes/Report: [facility] , Gram Stain Evaluation See Below For Report Gram Stain Evaluation This specimen is of good quality and is acceptable for routine Gram Stain Evaluation bacterial culture. Gram Stain Evaluation This specimen is of good quality and is acceptable for routine Performing Lab: see note - [facility] LB Lower Respiratory Culture Reviewed date:09/01/2024 07:46:23 AM Interpretation: Performing Lab: Notes/Report: [facility] , Lower Respiratory Culture See Below For Report Lower Respiratory Culture WILL FOLLOW Lower Respiratory Culture Routine respiratory lindsey Lower Respiratory Culture WILL FOLLOW Lower Respiratory Culture Performed at: [facility] Lower Respiratory Culture WILL FOLLOW Lower Respiratory Culture [address] [place] [phone] Lower Respiratory Culture WILL FOLLOW Lower Respiratory Culture Rim Roller Operator: Bryce Xiong PhD, Phone: [phone] Lower Respiratory Culture WILL FOLLOW Performing Lab: see note - [facility] LB SEE REPORT - Flue Tile Press Operator Id information not found for OBX-specific record producer legend Gram Stain Evaluation Reviewed date:09/01/2024 07:46:23 AM Interpretation: Performing Lab: Notes/Report: [facility] , Gram Stain Evaluation See Below For Report Gram Stain Evaluation This specimen is of good quality and is acceptable for routine Gram Stain Evaluation bacterial culture. Gram Stain Evaluation This specimen is of good quality and is acceptable for routine Performing Lab: see note - [facility] LB FREE T3 Reviewed date:09/27/2024 11:59:18 AM Interpretation: Performing Lab: Notes/Report: [facility] , Free T3 2.98 2.18-3.98 pg/mL Performing Lab: see note ML - [facility] LB LIPID PROFILE Reviewed date:09/27/2024 11:59:18 AM Interpretation: Performing Lab: Notes/Report: [facility] , Triglycerides 39 <=150 mg/dL Cholesterol 184 <=200 mg/dL HDL Cholesterol 80 40-60 mg/dL > or =60 mg/dl - LOW CARDIOVASCULAR RISK <40 mg/dl - HIGH CARDIOVASCULAR RISK LDL Cholesterol Calculated 97.0 <100 mg/dl OPTIMAL 100-129 mg/dl NEAR OR ABOVE OPTIMAL 130-159 mg/dl BORDERLINE HIGH 160-189 mg/dl HIGH >190 mg/dl VERY HIGH VLDL CHOLESTEROL 7.8 Chol HDL Ratio 2.3 3.3 - 4.4 LOW RISK 4.4 - 7.1 AVERAGE RISK 7.1 - 11.0 MODERATE RISK >11.0 HIGH RISK Performing Lab: see note ML - [facility] LB T4 Reviewed date:09/27/2024 11:59:18 AM Interpretation: Performing Lab: Notes/Report: [facility] , T4 Thyroxine 7.70 4.80-13.90 ug/dL Performing Lab: see note ML - [facility] LB TSH Reviewed date:09/27/2024 11:59:18 AM Interpretation: Performing Lab: Notes/Report: [facility] , Thyroid Stimulating Hormone 0.699 0.358-3.740 uIU/mL Performing Lab: see note - [facility] LB XR chest 2V Reviewed date:10/06/2024 10:15:32 AM Interpretation: Performing Lab: Notes/Report: Source Facility: [place] [address] [place] [address] XRay Report Signed Patient: MADHURI GUSMAN MR#: [id number] : 1980 Acct:[id number] Age/Sex: 44 / F ADM Date: 10/06/24 Loc: TRICIA Attending Dr: Soumya Alvarado D.O. Ordering Physician: Soumya Alvarado D.O. Date of Service: 10/06/24 Procedure(s): XR chest 2V Accession Number(s): [id number] cc: Bipin Martell M.D.; Soumya Alvarado D.O. The [place] [address] Patient Name: MADHURI GUSMAN MRN: [id number] date: 1980 Sex: F Assigned Patient Location: [facility] Current Patient Location: RAD Accession/Order Number: [id number] Exam Date: 10/06/2024 08:54 Report Date: 10/06/2024 08:56 At the request of: SOUMYA LAVARADO DO Procedure: XR chest 2V PA AND LATERAL CHEST: CLINICAL HISTORY: Chronic chest pain and shortness of breath. Pneumonia COMPARISON: CT and chest x-ray 08/25/2024 There is no focal parenchymal consolidation, effusion or pneumothorax. The cardiac, hilar and mediastinal silhouettes are within normal limits. There is no vascular congestion. The visualized bony thorax is intact. A cervical artificial disc is noted. Minor endplate spurring is seen. XR/XR chest 2V IMPRESSION: NO ACUTE CARDIOPULMONARY ABNORMALITY. Impression dictated by: Anayeli Wang M.D. 10/06/2024 8:56 AM Dictation Location: [place] [address] Electronically authenticated by: [id number] Y Date: 10/06/2024 08:56 Dictated By: Anayeli Wang M.D. Signed By: 10/06/2458 DD/ 5 TD/TT: Human Resource Consultant: [place] [address] XRay Report Signed Patient: ANDREA GUSMAN MR#: [id number] : 1980 Acct:[id number] Age/Sex: 44 / F ADM Date: 10/06/24 Loc: TRICIA Attending Dr: Soumya Alvarado D.O. Ordering Physician: Soumya Alvarado D.O. Date of Service: 10/06/24 Procedure(s): XR chest 2V Accession Number(s): [id number] cc: Bipin Martell M.D. ; Soumya Alavrado D.O. [place] [id number] Patient Name: MADHURI GUSMAN MRN: [id number] date: 1980 Sex: F Assigned Patient Location: [facility] Current Patient Loca tion: RAD Accession/Order Numb er: [id number] Exam Date: 10/06/2024 08:54 Report Date: 10/06/2024 08:56 At the request of: SOUMYA ALVARADO DO Procedure: XR chest 2V PA AND LATERAL CHEST: CLINICAL HISTORY: Ch ronic chest pain and shortness of breath. Pneumonia COMPARISON: CT and c hest x-ray 08/25/2024 There is no focal parenchymal consolidation, effusion or pneumothorax. The cardiac, hilar and mediastinal silhouettes are within normal limits. There is no vascular congestion. The visualized bony thorax is intact. A cervical artificial disc is noted. Minor endplate spurring is seen. X R/XR chest 2V IMPRESSION: NO ACUTE CARDIOPULMO NARY ABNORMALITY. Impression dictated by: Anayeli Wang M.D. 10/06/2024 8:56 AM Dictation Location: [place] [address] Electronically authenticated by: [id number] Y Date: 10/06/2024 08:56 Dictated By: Anayeli Wang M.D. Signed By: 10/06/24 0858 DD/ TD/TT: Human Resource Consultant: Estradiol Reviewed date:09/29/2024 03:46:24 PM Interpretation: Performing Lab: Notes/Report: [facility] , Estradiol 11.2 . pg/mL Adult Female Range Follicular phase 12.5 - 166.0 Ovulation phase 85.8 - 498.0 Luteal phase 43.8 - 211.0 Postmenopausal <6.0 - 54.7 1st trimester 215.0 - >4300.0 Twin ECLIA methodology Performing Lab: see note - [facility] LB FSH Reviewed date:09/29/2024 03:46:24 PM Interpretation: Performing Lab: Notes/Report: [facility] , FSH 71.8 . mIU/mL Adult Female Range Follicular phase 3.5 - 12.5 Ovulation phase 4.7 - 21.5 Luteal phase 1.7 - 7.7 Postmenopausal 25.8 - 134.8 Performing Lab: see note - [facility] LB Progesterone Reviewed date:09/29/2024 03:46:24 PM Interpretation: Performing Lab: Notes/Report: [facility] , Progesterone 0.1 . ng/mL Follicular phase 0.1 - 0.9 Luteal phase 1.8 - 23.9 Ovulation phase 0.1 - 12.0 First trimester 11.0 - 44.3 Second trimester 25.4 - 83.3 Third trimester 58.7 - 214.0 Postmenopausal 0.0 - 0.1 Performed at: [address] [id number] Rim Roller Operator: Bryce Xiong PhD, Phone: [phone] Performing Lab: see note - [facility] LB PROLACTIN Reviewed date:09/29/2024 03:46:24 PM Interpretation: Performing Lab: Notes/Report: [facility] , Prolactin 10.4 4.8-33.4 ng/mL Performing Lab: see note [facility] LB PROF 14(COMP METB) Reviewed date:09/27/2024 11:59:18 AM Interpretation: Performing Lab: Notes/Report: [facility] , Sodium 143 136-145 mmol/L Potassium 3.7 3.5-5.1 mmol/L Chloride 104 98-107 mmol/L Carbon Dioxide 31.7 21.0-32.0 mmol/L Anion Gap 11.0 Glucose 106 74-106 mg/dL Blood Urea Nitrogen 8.0 7.0-18.0 mg/dL Creatinine 0.90 0.55-1.02 mg/dL Estimated GFR ( Desi >60 >=60 mL/min/1.73m 2 Estimated GFR (Non- Nathalie >60 >=60 mL/min/1.73m 2 BUN Creatinine Ratio 8.9 Calcium 9.2 8.5-10.1 mg/dL Bilirubin Total 0.6 0.2-1.0 mg/dL Aspartate Amino Transferase 11 15-37 U/L Alanine Aminotransferase 21 14-59 U/L Alkaline Phosphatase 67 46-116 U/L Total Protein 7.4 6.4-8.2 g/dL Albumin Level 4.3 3.4-5.0 g/dL Globulin 3.1 Albumin Globulin Ratio 1.4 Performing Lab: see note - [facility] IRON Reviewed date:09/27/2024 11:59:18 AM Interpretation: Performing Lab: Notes/Report: [facility] , Iron 93.0 50.0-170.0 ug/dL Performing Lab: see note - [facility] INSULIN Reviewed date:09/30/2024 04:14:01 PM Interpretation: Performing Lab: Notes/Report: [facility] , Insulin 13.5 2.6-24.9 uIU/mL Performed at: [facility] [address] [id number] Rim Roller Operator: Bryce Xiong PhD, Phone: [phone] Performing Lab: see note [facility] LB GLYCOHEMOGLOBIN A1C Reviewed date:09/27/2024 11:59:18 AM Interpretation: Performing Lab: Notes/Report: [facility] , Glycohemoglobin A1C 6.1 4.5-6.2 % ADA RECOMMENDED LIMIT 4.0 - 6.0 ADA THERAPEUTIC TARGET < 7.0 ACTION SUGGESTED > 7.0 Estimated Average Glucose 128 Performing Lab: see note ML - [facility] LB CBC AUTO DIFF Reviewed date:09/27/2024 11:59:18 AM Interpretation: Performing Lab: Notes/Report: [facility] , White Blood Count 5.5 4.0-11.0 10 3/uL Red Blood Count 4.58 4.20-5.40 10 6/uL Hemoglobin 13.8 12.0-16.0 g/dL Hematocrit 40.2 36.0-48.0 % Mean Corpuscular Volume 87.8 81.0-99.0 fL Mean Corpuscular Hemoglobin 30.1 26.7-34.0 pg Mean Corpuscular HGB Conc 34.3 29.9-35.2 g/dL Red Cell Distribution Width 12.5 11.0-15.0 % Platelet Count 350 150-450 10 3/uL Mean Platelet Volume 10.0 9.5-13.5 fL Neutrophils Percent Auto 50.5 43.0-75.0 % Lymphocytes Percent Auto 33.9 20.5-60.0 % Monocytes Percent Auto 6.6 1.7-12.0 % Eosinophils Percent Auto 7.7 0.9-7.0 % Basophils Percent Auto 1.1 0.2-2.0 % Immature Granulocytes Pct Auto 0.2 0.0-0.5 % Neutrophils Absolute Auto 2.8 1.4-6.5 10 3/uL Lymphocytes Absolute Auto 1.9 1.2-3.8 10 3/uL Monocytes Absolute Auto 0.4 0.3-0.8 10 3/uL Eosinophils Absolute Auto 0.4 0.0-0.7 10 3/uL Basophils Absolute Auto 0.1 0.0-0.1 10 3/uL Immature Granulocytes Abs Auto 0.01 0.00-0.03 10 3/uL Performing Lab: see note ML - [facility] LB RT pulmonary function test Reviewed date:10/01/2024 09:37:29 AM Interpretation: Performing Lab: Notes/Report: Source Facility: [facility] [place] [address] [place] [address] Respiratory Report Signed Patient: MADHURI GUSMAN MR#: [id number] : 1980 Acct:[id number] Age/Sex: 44 / F ADM Date: 09/25/24 Loc: CARD Attending Dr: Soumya Alvarado D.O. Ordering Physician: Soumya Alvarado D.O. Date of Service: 09/25/24 Procedure(s): RT pulmonary function test Accession Number(s): [id number] cc: [facility] Test Date: 2024-09-25 Pat Name: MADHURI GUSMAN Department: Room: - Gender: Female Cryptographic Vulnerability Analyst: Edwin Banerjee RRT : 1980 Requested By: Soumya Alvarado Order Number: [id number] Reading MD: Soumya Alvarado Interpretive Statements Pulmonary function testing was completed according to ATS criteria. Findings were considered accurate and reproducible. Both pre- and post-bronchodilator values utilized for spirometry. Spirometry (based on pre-bronchodilator values): -FEV1/FVC: Normal @ 80% -FEV1: Normal @ 102% -FVC: Normal @ 103% -There is a partial bronchodilator response in FEV1 which meets >200mL increase but <12% change. Lung volumes by plethysmography: -RV: Normal @ 82% -TLC: Normal @ 101% Diffusion capacity: -DLCO: Normal @ 113% when corrected for Hb 14.2g/dL Impressions: -Normal PFT. Clinical correlation required. Electronically Signed On 10-01-2024 9:19:58 EDT by Soumya Alvarado Dictated By: Soumya Alvarado D.O. Signed By: 10/01/24 0920 DD/ 1311 TD/TT: Human Resource Consultant: [place] [address] Respiratory Report Signed Patient: ANDREA GUSMAN MR#: [id number] : 1980 Acct:[id number] Age/Sex: 44 / F ADM Date: 09/25/24 Loc: CARD Attending Dr: Soumya Alvarado D.O. Ordering Physician: Soumya Alvarado D.O. Date of Service: 09/25/24 Procedure(s): RT pulmonary function test Accession Number(s): [id number] cc: [facility] Test Date: 2024-09-25 Pat Name: MADHURI DOZIER Department: 37 Room: - Gender: Female Cryptographic Vulnerability Analyst: Edwin aBnerjee RRT : 1980 Requ ested By: Soumya Alvarado Order Number: [id number] Reading MD: Soumya Alvarado Interpretive Statements Pulmonary function testing was completed according to ATS criteria. Findings were considered accu rate and reproducible. Both pre- and post-bronchodilator values utilized for spirometry. Spirometry (based on pre-bronchodilator values): -FEV1/FVC: Normal @ 80% -FEV1: Normal @ 102% -FVC: Normal @ 103% -There is a partial bronchodilator response in FEV1 which meets >200mL increase but <12% change. Lung volumes by plethysmography: -RV: Normal @ 82% -TLC: Normal @ 101% Diffusion capacity: -DLCO: Normal @ 113% when corrected for Hb 14.2g/dL Impressions: -Normal PFT. Clinica l correlation required. Electronically Yissel d On 10-01-2024 9:19:58 EDT by Soumya Alvarado Dictated By: Zari Alvarado D.O. Signed By: 10/01/24 0920 DD/ 1311 TD/TT: Human Resource Consultant: Epithelial Cells Reviewed date:09/01/2024 07:46:23 AM Interpretation: Performing Lab: Notes/Report: [facility] , Epithelial Cells See Below For Report Epithelial Cells Few Performing Lab: see note LC - [facility] LB White Blood Cells Reviewed date:09/01/2024 07:46:23 AM Interpretation: Performing Lab: Notes/Report: [facility] , White Blood Cells See Below For Report White Blood Cells White Blood Cells Moderate White Blood Cells Performing Lab: see note LC - [facility] LB ECG 12 lead Reviewed date:08/26/2024 02:31:12 PM Interpretation: Performing Lab: Notes/Report: Source Facility: [place] [address] [place] [address] Electrocardiograph Report Signed Patient: MADHURI GUSMAN MR#: [id number] : 1980 Acct:[id number] Age/Sex: 44 / F ADM Date: 08/25/24 Loc: [place] 215-[address]: Bipin Martell M.D. Ordering Physician: Margarito Santamaria M.D. Date of Service: 08/25/24 Procedure(s): ECG 12 lead Accession Number(s): [id number] cc: [facility] Test Date: 2024-08-25 Pat Name: MADHURI GUSMAN Department: Room: [facility] Gender: Female Cryptographic Vulnerability Analyst: : 1980 Requested By: 1030 Order Number: [id number] Reading MD: YOLANDE NGUYEN M.D. Measurements Intervals [place] Rate: 108 P: 73 NV: 162 QRS: 91 QRSD: 90 T: 56 QT: 328 QTc: 391 Interpretive Statements 1120 Sinus tachycardia 7102 Moderate right axis deviation 9140 abnormal rhythm ECG Compared to ECG 08/28/2022 09:27:04 Right-axis deviation now present ST (T wave) deviation no longer present T-wave abnormality no longer present Possible ischemia no longer present Electronically Signed On 08-25-2024 21:43:07 EDT by YOLANDE NGUYEN M.D. Dictated By: YOLANDE NGUYEN Signed By: 08/25/24 2143 DD/ 0728 TD/TT: Human Resource Consultant: The [place] [id number] Electrocardiograph Report Signed Patient: ANDREA GUSMAN MR#: [id number] : 1980 Acct:[id number] Age/Sex: 44 / F ADM Date: 08/25/24 Loc: [place] 215-[address]: Saw Martell M.D. Ordering Physician: Margarito Santamaria M.D. Date of Service: 08/25/24 Procedure(s): ECG 12 lead Accession Number(s): [id number] cc: [facility] Test Date: 2024-08-25 Pat Name: MADHURI DOZIER Department: 37 Room: [facility] Gender: Female Cryptographic Vulnerability Analyst: : 1980 Requ ested By: 1030 Order Number: [id number] Reading MD: YOLANDE NGUYEN M.D. Measurements Intervals [place] Rate: 108 P: 73 NV: 162 QRS: 91 QRSD: 90 T: 56 QT: 328 QTc: 391 Interpretive Statements 1120 Sinus tachycardia 7102 Moderate right axis deviation 9140 abnormal rhy thm ECG Compared to ECG 08/28/2022 09:27:04 Right-axis deviation now present ST (T wave) deviatio n no longer present T-wave abnormality n o longer present Possible ischemia no longer present Electronically Yissel d On 08-25-2024 21:43:07 EDT by YOLANDE NGUYEN M.D. Dictated By: YOLANDE NGUYEN Signed By: 08/25/24 2143 DD/ TD/TT: Human Resource Consultant: SARS-CoV-2 Ag* Reviewed date:08/25/2024 08:13:30 PM Interpretation: Performing Lab: Notes/Report: [facility] , SARS-CoV-2 Ag NEGATIVE NEGATIVE This test has not been FDA cleared or approved, but has been authorized by the FDA under an Emergency Use Authorization (EUA) for use by authorized laboratories certified under CLIA that meet the requirements to perform moderate or high complexity testing. This test has been authorized only for the detection of proteins from SARS-CoV-2, not for any other viruses or pathogens. The emergency use of this test is authorized for the duration of the declaration that circumstances exist justifying the authorization of emergency use of in vitro diagnostic tests for detection and/or diagnosis of Covid-19 under section 564(b)(1) of the Act, 21 U.S.C. 360bbb-3(b)(1), unless the declaration is terminated or authorization is revoked sooner. Performing Lab: see note ML - [facility] LB Aerobe ID + Suscept Reviewed date:08/31/2024 01:16:26 PM Interpretation: Performing Lab: Notes/Report: [facility] , Aerobe ID + Suscept See Below For Report Aerobe ID + Suscept O:STAWAR Isolated Organism: 1.1 Antibiotic Interpretation EZEQUIEL Status Aerobe ID + Suscept *ABNORMAL* Aerobe ID + Suscept O: Isolated Organism: 1.1 Antibiotic Interpretation EZEQUIEL Status Aerobe ID + Suscept Gram positive cocci Aerobe ID + Suscept O: Isolated Organism: 1.1 Antibiotic Interpretation EZEQUIEL Status Aerobe ID + Suscept *ABNORMAL* Aerobe ID + Suscept O: Isolated Organism: 1.1 Antibiotic Interpretation EZEQUIEL Status Aerobe ID + Suscept Received pediatric b ottle only. Aerobe ID + Suscept O: Isolated Organism: 1.1 Antibiotic Interpretation EZEQUIEL Status Aerobe ID + Suscept Identification and sensitivities to follow. Aerobe ID + Suscept O: Isolated Organism: 1.1 Antibiotic Interpretation EZEQUIEL Status Aerobe ID + Suscept Organism: Staphyloco ccus warneri : Aerobe ID + Suscept O: Isolated Organism: 1.1 Antibiotic Interpretation EZEQUIEL Status Aerobe ID + Suscept *ABNORMAL* Aerobe ID + Suscept O: Isolated Organism: 1.1 Antibiotic Interpretation EZEQUIEL Status Aerobe ID + Suscept Based on resistance to oxacillin this isolate would be Aerobe ID + Suscept O: Isolated Organism: 1.1 Antibiotic Interpretation EZEQUIEL Status Aerobe ID + Suscept resistant to all currently available beta-lactam Aerobe ID + Suscept O: Isolated Organism: 1.1 Antibiotic Interpretation EZEQUIEL Status Aerobe ID + Suscept antimicrobial agents , with the exception of the newer Aerobe ID + Suscept O: Isolated Organism: 1.1 Antibiotic Interpretation EZEQUIEL Status Aerobe ID + Suscept cephalosporins with anti-MRSA activity, such as Aerobe ID + Suscept O: Isolated Organism: 1.1 Antibiotic Interpretation EZEQUIEL Status Aerobe ID + Suscept Ceftaroline Aerobe ID + Suscept O: Isolated Organism: 1.1 Antibiotic Interpretation EZEQUIEL Status Aerobe ID + Suscept Received pediatric b ottle only. Aerobe ID + Suscept O: Isolated Organism: 1.1 Antibiotic Interpretation EZEQUIEL Status Aerobe ID + Suscept Staphylococcus warneri Aerobe ID + Suscept O: Isolated Organism: 1.1 Antibiotic Interpretation EZEQUIEL Status Aerobe ID + Suscept See Below For Report Aerobe ID + Suscept O: Isolated Organism: 1.1 Antibiotic Interpretation EZEQUIEL Status Aerobe ID + Suscept Performed at: CB - [facility] [place] Aerobe ID + Suscept O: Isolated Organism: 1.1 Antibiotic Interpretation EZEQUIEL Status Aerobe ID + Suscept [address] [place], [place] [id number] Aerobe ID + Suscept O: Isolated Organism: 1.1 Antibiotic Interpretation EZEQUIEL Status Aerobe ID + Suscept Rim Roller Operator: Rosemary Xiong PhD, Phone: [phone] Aerobe ID + Suscept O: Isolated Organism: 1.1 Antibiotic Interpretation EZEQUIEL Status Aerobe ID + Suscept See Below For Report Aerobe ID + Suscept O: Isolated Organism: 1.1 Antibiotic Interpretation EZEQUIEL Status Aerobe ID + Suscept Ciprofloxacin S F Aerobe ID + Suscept O: Isolated Organism: 1.1 Antibiotic Interpretation EZEQUIEL Status Aerobe ID + Suscept Erythromycin R F Aerobe ID + Suscept O: Isolated Organism: 1.1 Antibiotic Interpretation EZEQUIEL Status Aerobe ID + Suscept Gentamicin S F Aerobe ID + Suscept O: Isolated Organism: 1.1 Antibiotic Interpretation EZEQUIEL Status Aerobe ID + Suscept Levofloxacin S F Aerobe ID + Suscept O: Isolated Organism: 1.1 Antibiotic Interpretation EZEQUIEL Status Aerobe ID + Suscept Moxifloxacin S F Aerobe ID + Suscept O: Isolated Organism: 1.1 Antibiotic Interpretation EZEQUIEL Status Aerobe ID + Suscept Oxacillin R F Aerobe ID + Suscept O: Isolated Organism: 1.1 Antibiotic Interpretation EZEQUIEL Status Aerobe ID + Suscept Penicillin R F Aerobe ID + Suscept O: Isolated Organism: 1.1 Antibiotic Interpretation EZEQUIEL Status Aerobe ID + Suscept Rifampin S F Aerobe ID + Suscept O: Isolated Organism: 1.1 Antibiotic Interpretation EZEQUIEL Status Aerobe ID + Suscept Tetracycline S F Aerobe ID + Suscept O: Isolated Organism: 1.1 Antibiotic Interpretation EZEQUIEL Status Aerobe ID + Suscept Trimethoprim/Sulfame thoxa zole S F Aerobe ID + Suscept O: Isolated Organism: 1.1 Antibiotic Interpretation EZEQUIEL Status Aerobe ID + Suscept Vancomycin S F Aerobe ID + Suscept O: Isolated Organism: 1.1 Antibiotic Interpretation EZEQUIEL Status Aerobe ID + Suscept Clindamycin R F Aerobe ID + Suscept O: Isolated Organism: 1.1 Antibiotic Interpretation EZEQUIEL Status Performing Lab: see note LC - [facility] LB SEE REPORT - Flue Tile Press Operator Id information not found for OBX-specific record producer legend RSV Reviewed date:08/25/2024 08:13:30 PM Interpretation: Performing Lab: Notes/Report: [facility] , Respiratory Syncytial Virus Not Detected NOT DETECTE Performing Lab: see note ML - [facility] LB PROF CHEM 8 (BAS METB) Reviewed date:08/25/2024 08:13:30 PM Interpretation: Performing Lab: Notes/Report: [facility] , Sodium 143 136-145 mmol/L Potassium 3.6 3.5-5.1 mmol/L Chloride 105 98-107 mmol/L Carbon Dioxide 30.0 21.0-32.0 mmol/L Anion Gap 11.6 Glucose 127 74-106 mg/dL Blood Urea Nitrogen 14.0 7.0-18.0 mg/dL Creatinine 0.83 0.55-1.02 mg/dL Estimated GFR ( Desi >60 >=60 mL/min/1.73m 2 Estimated GFR (Non- Nathalie >60 >=60 mL/min/1.73m 2 BUN Creatinine Ratio 16.9 Calcium 9.3 8.5-10.1 mg/dL Performing Lab: see note ML - [facility] LB INFLUENZA A AND B AG Reviewed date:08/25/2024 08:13:30 PM Interpretation: Performing Lab: Notes/Report: [facility] , Influenza Virus A Antigen Negative Negative for Flu A protein antigen. Infection due to Flu A cannot be ruled out. Flu A antigen in the sample may be below the detection limit of the test. Influenza Virus B Antigen Negative Negative for Flu B protein antigen. Infection due to Flu B cannot be ruled out. Flu B antigen in the sample may be below the detection limit of the test. Performing Lab: see note ML - [facility] LB CBC AUTO DIFF Reviewed date:08/25/2024 08:13:30 PM Interpretation: Performing Lab: Notes/Report: [facility] , White Blood Count 7.7 4.0-11.0 10 3/uL Red Blood Count 4.75 4.20-5.40 10 6/uL Hemoglobin 14.2 12.0-16.0 g/dL Hematocrit 41.7 36.0-48.0 % Mean Corpuscular Volume 87.8 81.0-99.0 fL Mean Corpuscular Hemoglobin 29.9 26.7-34.0 pg Mean Corpuscular HGB Conc 34.1 29.9-35.2 g/dL Red Cell Distribution Width 12.7 11.0-15.0 % Platelet Count 368 150-450 10 3/uL Mean Platelet Volume 10.1 9.5-13.5 fL Neutrophils Percent Auto 45.0 43.0-75.0 % Lymphocytes Percent Auto 24.4 20.5-60.0 % Monocytes Percent Auto 5.9 1.7-12.0 % Eosinophils Percent Auto 23.4 0.9-7.0 % Basophils Percent Auto 1.2 0.2-2.0 % Immature Granulocytes Pct Auto 0.1 0.0-0.5 % Neutrophils Absolute Auto 3.5 1.4-6.5 10 3/uL Lymphocytes Absolute Auto 1.9 1.2-3.8 10 3/uL Monocytes Absolute Auto 0.5 0.3-0.8 10 3/uL Eosinophils Absolute Auto 1.8 0.0-0.7 10 3/uL Basophils Absolute Auto 0.1 0.0-0.1 10 3/uL Immature Granulocytes Abs Auto 0.01 0.00-0.03 10 3/uL Performing Lab: see note ML - [facility] MM tomosynthesis screening B I Reviewed date:01/13/2024 09:10:38 PM Interpretation: Performing Lab: Notes/Report: Source Facility: [facility]-[address] [place] [address] [place] [address] Mammography Report Signed Patient: MADHURI GUSMAN MR#: [id number] : 1980 Acct:[id number] Age/Sex: 43 / F ADM Date: 01/08/24 Loc: MAMMO Attending Dr: Sherri Reynolds Ordering Physician: Sherri Reynolds Results: Date of Service: 01/08/24 Follow Up: Procedure(s): MM tomosynthesis screening BI Accession Number(s): [id number] cc: Sherri Reynolds; Bipin Martell M.D. Patient Name: MADHURI GUSMAN MR#: [id number] : 1980 Exam Date: 01/08/2024 Ordering Doctor: [...] uterine cancer at age 40. LOCATION: [facility] BREAST COMPOSITION: The breasts are heterogeneously [...] M.D. Signed By: 01/11/24913 DD/ 2 TD/TT: Human Resource Consultant: [place] [address] Mammography Report Signed Patient: ANDREA GUSMAN MR#: [id number] : 1980 Acct:[id number] Age/Sex: 43 / F ADM Date: 01/08/24 Loc: MAMMO Attending Dr: Sherri Reynolds Ordering Physician: Sherri Reynolds Results: Date of Service: 07/28 Follow Up: Procedure(s): MM tomosynthesis screening BI Accession Number(s): [id number] cc: Bipin Perry M.D. Patient Name: MADHURI GUSMAN MR#: [id number] : 1980 Exam Date: 01/08/2024 Ordering Doctor: CHAYA Reynolds . RADIOLOGY REPORT PROCEDURE: MM TOMOSYNTHESIS SCREENING BI COMPARISON: MG MAMM SCREEN 3D FAISAL CAD, 02/01/2022. INDICATIONS: Screeni ng mammogram Calculator Name NCI Breast Cancer Risk Assessment Tool 5 Year Breast Cancer Risk 0.50% Lifetime Breast Canc er Risk 7.10% Personal Breast Cancer No Personal Ovarian Can cer No Treatments None Family Cancers Alfa keating with lung/brain cancer at age 57; Grandmother-maternal with uterine cancer at age 40. LOCATION: The [facility] BREAST COMPOSITION: The breasts are heterogeneously dense,which may obscure small masses. FINDINGS: DIAGNOSTIC CATEGORY 1--NEGATIVE. RIGHT BREAST: No significant suspicious finding. No significant change has occurred. LEFT BREAST: No significant suspicious finding. No significant change has occurred. RECOMMENDATIONS: ROUTINE MAMMOGRAM AN D CLINICAL EVALUATION IN 12 MONTHS. PLEASE NOTE: A BRYAN L MAMMOGRAM DOES NOT EXCLUDE THE POSSIBILITY OF BREAST CANCER. A CLINICALLY SUSPICIOUS PALPABLE LUMP SHOULD BE BIOPSIED. Dictated by: Evan Fernández M.D. on 01/11/2024 at 09:08 Approved by: Evan Fernández M.D. on 01/11/2024 at 09:13 Dictated By: Evan Fernández M.D. Signed By: 01/11/24913 DD/ 2 TD/TT: Human Resource Consultant: Erwin CEE HPV,Age Gdln Reviewed date:01/09/2024 07:39:05 PM Interpretation: Performing Lab: Notes/Report: BRUSH-SPATULA CERVIX ENDOCERVIX [facility] , Age Gdln ACOG Testing Note . TESTS RESULT FLAG UNITS REF RANGE LAB Clinician Provided Cytology Information Source.............Cer vix;Endocervix No. of containers..01 ThinPrep Vial Age Algo ACOG Amirah... FLAG LEGEND: L-Low Normal,H-High Normal,LL-Alert Low,HH-Alert High <-Panic Low,>-Panic High,A-Abnormal,AA-Cri tical Abnormal Performed at: 01 =[address] [place] [address] Zainab Mckeon MD, IGP, Aptima HPV, rfx 16/18,45 Note . TESTS RESULT FLAG UNITS REF RANGE LAB DIAGNOSIS: 02 NEGATIVE FOR INTRAEPITHELIAL LESION OR MALIGNANCY. Specimen adequacy: 02 Satisfactory for evaluation. No endocervical component is identified. Performed by: Charles Cabrera, Chemical Engineer (ASCP) . 02 Note: Note 02 The [...] L-Low Normal,H-High Normal,LL-Alert Low,HH-Alert High <-Panic Low,>-Panic High,A-Abnormal,AA-Cri tical Abnormal Performed at: [address] [address] Zainab Mckeon MD, HPV Aptima Negative Negative This nucleic acid amplification test detects fourteen high- risk HPV types (16,18,31,33,35,39,45, 51,52,56,58,59,66,68) without differentiation. Performed at: =[address] [id number] Rim Roller Operator: Zainab Mckeon MD, Phone: [phone] Performed at: [address] [id number] Rim Roller Operator: Zainab Mckeon MD, Phone: [phone] Performing Lab: see note - [facility] MYAOG-5-TTUVCSAJNGE SCREENIN G SWAB Reviewed date:09/22/2024 08:50:50 AM Interpretation: Performing Lab: Notes/Report: Blood Culture 1 Reviewed date:08/31/2024 01:16:26 PM Interpretation: Performing Lab: Notes/Report: [facility] , Blood Culture 1 See Below For Report Blood Culture 1 NG5D NO GROWTH AT 5 DAYS.^NO GROWTH AT 5 DAYS. Performing Lab: see note ML - [facility] LB BLOOD CULTURE ID PANEL Reviewed date:08/26/2024 02:31:12 PM Interpretation: Performing Lab: Notes/Report: [facility] , CTX-M NOT APPLICABLE NOT DETECTE IMP NOT APPLICABLE NOT DETECTE KPC NOT APPLICABLE NOT DETECTE mcr-1 NOT APPLICABLE NOT DETECTE mecA/C DETECTED NOT DETECTE RESULTS CALLED TO VIVIANE CUENCA RN @BY Hannah Razo at 0420 mecA/C and MREJ (MRSA) NOT APPLICABLE NOT DETECTE NDM NOT APPLICABLE NOT DETECTE OXA-48-like NOT APPLICABLE NOT DETECTE Avi/B NOT APPLICABLE NOT DETECTE VIM NOT APPLICABLE NOT DETECTE Source BLOOD Enterococcus faecalis NOT DETECTED NOT DETECTE Enterococcus faecium NOT DETECTED NOT DETECTE Listeria monocytogenes NOT DETECTED NOT DETECTE Staphylococcus spp. DETECTED NOT DETECTE RESULTS CALLED TO VIVIANE CUENCA RN @BY Hannah Razo at 0420 Staphylococcus aureus NOT DETECTED NOT DETECTE Staphylococcus epidermidis DETECTED NOT DETECTE RESULTS CALLED TO VIVIANE CUENCA RN @BY Hannah Razo at 0420 Staphylococcus lugdunensis NOT DETECTED NOT DETECTE Streptococcus spp. NOT DETECTED NOT DETECTE Streptococcus agalactiae NOT DETECTED NOT DETECTE Streptococcus pneumoniae NOT DETECTED NOT DETECTE Streptococcus pyogenes NOT DETECTED NOT DETECTE A. calcoaceticus-baumannii Cpx NOT DETECTED NOT DETECTE Bacteroides fragilis NOT DETECTED NOT DETECTE Enterobacterales NOT DETECTED NOT DETECTE Enterobacter cloacae complex NOT DETECTED NOT DETECTE Escherichia coli NOT DETECTED NOT DETECTE Klebsiella aerogenes NOT DETECTED NOT DETECTE Klebsiella oxytoca NOT DETECTED NOT DETECTE Klebsiella pneumoniae group NOT DETECTED NOT DETECTE Proteus spp. NOT DETECTED NOT DETECTE Salmonella spp. NOT DETECTED NOT DETECTE Serratia marcescens NOT DETECTED NOT DETECTE Haemophilus influenzae NOT DETECTED NOT DETECTE Neisseria meningitidis NOT DETECTED NOT DETECTE Pseudomonas aeruginosa NOT DETECTED NOT DETECTE Stenotrophomonas maltophilia NOT DETECTED NOT DETECTE Amara albicans NOT DETECTED NOT DETECTE Amara auris NOT DETECTED NOT DETECTE Amara glabrata NOT DETECTED NOT DETECTE Amara krusei NOT DETECTED NOT DETECTE Amara parapsilosis NOT DETECTED NOT DETECTE Amara tropicalis NOT DETECTED NOT DETECTE Cryptococcus neoformans/gattii NOT DETECTED NOT DETECTE Performing Lab: see note ML - [facility] LB COVID-19, Flu A+B IH Reviewed date:08/25/2024 08:13:30 PM Interpretation: Performing Lab: Notes/Report: COVID neg FLU A neg FLU B neg Control pos Reason For Referral Reason Chest pain Diagnosis 1 Chest pain, unspecif ied (R07.9) Referral Organization [facility] [place] Referring Provider First Name Soumya Referring Provider Last Name Mic Referring Provider Speciality Pulmonolog y Referred Provider Specialty Cardiology General Notes Juanito Yu 10/06 09:47:08 AM >Referral taken to [facility] Cardiology and given to Aimee Renae Riley 10/09/2024 11:18:30 AM >I called and spoke with Kim at [facility] Cardiology. Patient was contacted and scheduled for 10/20/2024 at 1045.Aimee Riley 10/09/2024 11:18:48 AM >Correction: 10/20/2024 at 1545 not 1045., Juanito Yu 10/28/2024 11:41:04 AM >I called and spoke with Kim to find out if the consult note could be faxed to our office. Kim will fax the consult note., Juanito Yu 10/28/2024 11:54:59 AM >Consult Note received via fax. Scanned to for review. Referral Priority Routine Referral Appointment Date 10/20/2024 Medications Medication SIG (Take, Route, Frequency, Duration) Notes Start Date End Date Status Albuterol Sulfate (2.5 MG/3ML) 0.083% 3 mL as needed Inhalation every 6 hrs 05/21/2024 Active LaMICtal 25 MG 2 tablet Orally qd f or 30 days 01/31/2024 Active Venlafaxine HCl ER 75 MG Oral for 30 Days Active Ventolin HFA 108 (90 Base) MCG/ACT 2 puff as needed Inhalation every 4 hrs for 30 01/10/2023 Active Adipex-P 37.5 MG 1 tablet before liyah kfast Orally Once a day 11/03/2024 Active Protonix 40 MG 1 tablet Orally Once a day for 30 days 07/30/2024 Active traZODone HCl 50 MG 2 Oral qhs for 30 days Active Trelegy Ellipta 200-62.5-25 MCG/ACT 1 puff Inhalation Once a day for 90 days Rinse after use; Dispense #3 inhalers Active Immunizations Vaccine Route Administration Date Status Comme nts SARS-COV-2 (COVID 19 Moderna - Booster 0.25mL) Unknown 06/02/2020 Administered Social History Tobacco Use: Social History Observation Description Date Details (start date - stop date) Never Smoker NA - NA Tobacco Control (Standard) Question Answer Notes Tobacco use: Nonsmoker AUDIT-C (Standard) Question Answer Notes Did you have a drink containing alcohol in the p ast year? No Points 0 Interpretation Negative Problems Problem Type SNOMED Code ICD Code Onset Dates Problem Status W/U Status Risk Notes Problem Uncomplicated severe persistent asthma (795934588) Severe persistent asthma, uncomplicated (J45.50) Active confirmed Problem 518351216 prison (current) use of inhaled steroids (Z79.51) Active confirmed Problem Obesity (312960295) Obesity (E66.9) Active confirmed Problem Obstructive sleep apnea syndrome (71720367) RASHAD (obstructive sleep apnea) (G47.33) Active confirmed Problem Well adult (743080278) Well adult (Z00.00) Active confirmed Problem Community acquired pneumonia (885844037) Community acquired pneumonia (J18.9) Active confirmed Problem Emphysema (80882921) 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) Active confirmed Problem History of endocrine disorder (825242747) History of diet-controlled diabetes (Z86.39) Active confirmed Problem 37712429 Suicide attempt, initial encounter (T14.91XA) Active confirmed Problem Peripheral eosinophilia (D72.19) Active confirmed Vital Signs Heart Rate 87 /min 10/06/2024 Temperature 96.6 degrees Fahrenheit 10/06/2024 Respiratory Rate 16 /min 10/06/2024 Oximetry 97 % 10/06/2024 Blood pressure diastolic 70 mm Hg 11/03/2024 Height 65 in 11/03/2024 Blood pressure systolic 122 mm Hg 11/03/2024 Weight 196.8 lbs 11/03/2024 BMI 32.75 kg/m2 11/03/2024 Procedures Procedure Date Ordered Date Performed Result Body Sit e PFT (20083, 41343, 28650) 09/08/2024 09/25/2024 N/A Encounters Encounter Location Date Provider Diagnosis [facility] [address] [place] [address] 01/31/2024 [facility] [address] [place] [address] 02/28/2024 [facility] [address] [place] [address] 09/29/2024 [facility] [address] [place] [address] 10/02/2024 [facility] [address] [place] [address] 10/06/2024 [facility] [address] [place] [address] 08/26/2024 [facility] [address] [place] [address] 08/26/2024 Soumya Alvarado [facility] [address] [facility] [address] 08/28/2024 Edil Hoy Acute bronchiolitis J21.9 [facility] [address] [facility] [place] [address] 08/31/2024 Edil Hoy Acute bronchiolitis J21.9 and Gastritis K29.70 [facility] [address] [facility] [place] [address] 09/08/2024 Edil Hoy [facility] [address] [facility] [place] [address] 09/27/2024 Edil Hoy [facility] [address] [facility] [place] [address] 07/17/2024 Edil Hoy Nasal congestion R09 .81 and Acute bronchitis, unspecified organism J20.9 [facility] [address] [facility] [place] [address] 07/30/2024 Edil Hoy Gastritis K29.70 [facility] [address] [facility] [place] [address] 08/29/2024 Edil Hoy Acute bronchiolitis J21.9 [facility] [address] [place] [address] 09/26/2024 Edil Hoy Well adult Z00.00 [facility] [address] [place] [address] 11/03/2024 Edil Hoy History of diet-controlled diabetes Z86.39 [facility] [address] [facility] [place] [address] 05/21/2024 Edil Hoy Acute non-recurrent sinusitis, unspecified location J01.90 and Nasal congestion R09.81 [facility] [address] [facility] [place] [address] 10/06/2024 Soumya Alvarado Severe persistent asthma, uncomplicated J45.50 ; Chest pain, unspecified R07.9 ; Community acquired pneumonia J18.9 ; Lung bullae J43.9 ; Peripheral eosinophilia D72.19 ; RASHAD (obstructive sleep apnea) G47.33 ; director long term care (current) use of inhaled steroids Z79.51 ; Obesity E66.9 and History of diet-controlled diabetes Z86.39 [facility] [place] [address] [place] [address] 09/08/2024 Soumya Alvarado Severe persistent asthma, uncomplicated J45.50 ; Peripheral eosinophilia D72.19 ; Lung bullae J43.9 ; Community acquired pneumonia J18.9 ; RASHAD (obstructive sleep apnea) G47.33 ; director long term care (current) use of inhaled steroids Z79.51 and Obesity E66.9 Assessments Encounter Date Diagnosis (ICD Code) Assessment Notes Treatment Notes Treatment Clinical Notes Section Notes 05/21/2024 Acute non-recurrent sinusitis, unspecified location (ICD-10 - J01.90) Rest and drink more liquids, especially water. You may use a humidifier or vaporizer to help keep the drainage moist. Fneh-rfl-xsyzxec Nasal Saline may help the stuffy and runny nose. Use Ibuprofen and or Tylenol as needed for fever, chills, body aches or pain. Children 5 years old should not be given qxfb-qvg-kdscqll cough and cold medications such as guaifenesin and dextromethorphan. If you're over age 5, you may try eczy-ici-dfpnnfm cold medications such as guaifenesin and dextromethorphan, or multi-symptom cold reliever such as Dayquil to help reduce the symptoms. Antibiotics have been prescribed. You should take these until completed and follow the directions. Antibiotics can sometimes cause upset stomach, and in rare cases, serious allergic reactions or serious gastrointestinal problems. If you start having severe abdominal pain, severe vomiting, or bloody diarrhea, you should be reevaluated by your physician or urgent care immediately. Follow up with your Primary Care Provider or return to clinic if symptoms do not improve within 3-5 days 07/30/2024 Gastritis (ICD-10 - K29.70) 08/29/2024 Acute bronchiolitis (ICD-10 - J21.9) 09/08/2024 Severe persistent asthma, uncomplicated (ICD-10 - J45.50) History of asthma since childhood. No recent PFT/spirometry available. Worsening symptoms over the past ~6 months, no clear identifying factor or trigger. 3 exacerbations requiring prednisone: 05/21/2024, 07/17/2024, 08/25/2024 - the last leading to hospitalization. Change from Breo 100 to Trelegy 100 had some mild benefit, but she remains symptomatic. Has elevated eosinophil count. Previously on Xolair, but that was for urticaria. She states she does not recall any improvement in breathing while on Xolair as her asthma was controlled then. Plan: -Increase Trelegy 100 to Trelegy 200 -PFT F/U in ~4 weeks to review PFT and response to Trelegy 200. If she remains symptomatic, will discuss starting biologic therapy. 09/08/2024 Peripheral eosinophilia (ICD-10 - D72.19) Eosinophils: -08/25/2024: 23.4% / 1800 -06/12/2023: 4% / 300 Labs reflect elevated eosinophil count - markedly increased at the time of her hospital admission. Will see how she responds to Trelegy 200 - if still symptomatic then, will look into biologic therapy. 09/26/2024 Well adult (ICD-10 - Z00.00) 11/03/2024 History of diet-controlled diabetes (ICD-10 - Z86.39) 10/06/2024 Severe persistent asthma, uncomplicated (ICD-10 - [...] unremarkable, then I would suggest referral to coordinate measuring machine programmer for allergy testing (would be difficult to [...] referral to cardiology - patient voiced agreement. 08/28/2024 Acute bronchiolitis (ICD-10 - J21.9) 08/31/2024 Acute bronchiolitis (ICD-10 - J21.9) 07/17/2024 Nasal congestion (ICD-10 - R09.81) 07/17/2024 Acute bronchitis, unspecified organism (ICD-10 - J20.9) Rest and drink more liquids, especially water. You may use a humidifier or vaporizer to help keep the drainage moist. Hoow-usz-lsclxmi Nasal Saline may help the stuffy and runny nose. Use Ibuprofen and or Tylenol as needed for fever, chills, body aches or pain. Children 5 years old should not be given xnkv-grt-iogtidm cough and cold medications such as guaifenesin and dextromethorphan. If you're over age 5, you may try kbby-iiq-gbqkgkk cold medications such as guaifenesin and dextromethorphan, or multi-symptom cold reliever such as Dayquil to help reduce the symptoms. Antibiotics have been prescribed. You should take these until completed and follow the directions. Antibiotics can sometimes cause upset stomach, and in rare cases, serious allergic reactions or serious gastrointestinal problems. If you start having severe abdominal pain, severe vomiting, or bloody diarrhea, you should be reevaluated by your physician or urgent care immediately. Follow up with your Primary Care Provider or return to clinic if symptoms do not improve within 3-5 days. If you develop severe symptoms such as shortness of breath, repeated vomiting, coughing up blood, or chest pain you should go to the emergency room or call 911 08/31/2024 Gastritis (ICD-10 - K29.70) 10/06/2024 Community acquired pneumonia (ICD-10 - J18.9) Noted infiltrates in RLL on CTA 08/25/2024. Ordering F/U CXR - will contact patient with results. If abnormal, will need CT chest. This pneumonia occurred well after the patient began experiencing chest pain - as well as the pneumonia was on the contralateral side, I do not feel the two are interconnected. 09/08/2024 Lung bullae (ICD-10 - J43.9) 4.3cm RML bulla noted on CTA chest 08/25/2024. Present on prior CT abdomen/pelvis 06/12/2023. Likely congenital. Regardless, will check for alpha-1 antitrypsin (AAT) deficiency. Pamphlet discussing AAT causes, testing, and potential treatment was provided to the patient. Appropriate follow-up is dependent on identified genotype. 05/21/2024 Nasal congestion (ICD-10 - R09.81) 09/08/2024 Community acquired pneumonia (ICD-10 - J18.9) Noted infiltrates in RLL on CTA 08/25/2024. Will discuss F/U imaging to document clearing of infiltrates at next visit. 10/06/2024 Lung bullae (ICD-10 - J43.9) 4.3cm [...] first before looking into further pulmonary treatment. 09/08/2024 RASHAD (obstructive sleep apnea) (ICD-10 - G47.33) Has PAP, but does not appear that anyone is actively managing it - she states PCP is signing orders. 09/08/2024 prison (current) use of inhaled steroids (ICD-10 - Z79.51) Patient was counseled to rinse & gargle with water after inhaled corticosteroid use. 10/06/2024 RASHAD (obstructive sleep apnea) (ICD-10 - G47.33) Defer to PCP. 10/06/2024 director long term care (current) use of inhaled steroids (ICD-10 - Z79.51) Patient was counseled to rinse & gargle with water after inhaled corticosteroid use. 09/08/2024 Obesity (ICD-10 - E66.9) Patient's weight is inducing a restrictive pulmonary physiology. Weight loss indicated: Decrease calories, increase activity. 10/06/2024 Obesity (ICD-10 - E66.9) Patient's weight is inducing a restrictive pulmonary physiology. Weight loss indicated: Decrease calories, increase activity. 10/06/2024 History of diet-controlled diabetes (ICD-10 - Z86.39) 05/21/2024 Other Recommended kavita ping a rescue inhaler on hand and to be aware of asthma triggers. Go to ER if breathing becomes difficult and prevents you from participating in normal daily activities Plan Of Treatment Pending Test Test Name Order Date HEMOGLOBIN A1C (GLYCO) 09/26/2024 IRON, TOTAL 09/26/2024 LIPID PANEL (CHOL/TRIG/HDL/LDL) 09/27/19 25 Insulin Level 09/26/2024 FSH - PROLACTIN 09/26/2024 CULTURE SPUTUM 08/28/2024 ESTRADIOL 09/26/2024 PROGESTERONE 09/26/2024 THYROID PANEL (T4/TSH/FREE T3) CMP (COMP MET CHAMORRO) w/eGFR CKD-EPI 2024 CBC WITH DIFF 09/26/2024 Next Appt Details Provider Name:Soumya Alvarado, 12/31/2024 07:30:00 AM, [address] [place], [address], Insurance Providers Payer Name Payer Address Payer Phone Subscriber Number Group Number Insured Name Patient Relationship to Insured Coverage Start Date Coverage End Date [employer] PPO PLUS LOCAL PLAN [address] [place] [address] [id number] GlenisMadhuri rowell Self - patient is the insured 2 Medications Administered Medication Instructions Date of Administration Dosage Notes Dexamethasone, 4mg/mL 05/21/2024 8 mg Medical (General) History Medical History History ICD Code Choledocholithiasis K80.50 Chronic pancolonic ulcerative colitis K5 1.00 ADHD (attention deficit hyperactivity di sorder) F90.9 Anxiety F41.9 RASHAD (obstructive sleep apnea) G47.33 Severe persistent asthma, uncomplicated J45.50 GERD (gastroesophageal reflux disease) K 21.9 Chronic migraine without aura, not intra ctable, without status migrainosus G43.709 Peripheral eosinophilia D72.19 Lung bullae J43.9 Community acquired pneumonia J18.9 Obesity E66.9 History of diet-controlled diabetes Z86. 39 Surgical History Surgery Date(Month/Year) Tonsillectomy Cyst Removal C Section X 1 Hernia Repair Neck Surgery cholecystectomy endometrial ablation tubal ligation Colonoscopy 10/07/2024 Hospitalization History Reason Date(Month/Year) Asthma Exacerbation-[facility] 08/25/2024
--- OUTSIDE RECORDS SUMMARY | 2024-11-26 06:50 | XMS_ITS | Encounter Summary ---
Author Organization [facility] Address [address] [place] [address] Care Team Providers Care Farmworker Rice Name Role Phone Unavailable Primary Care Provider Unavailabl e Encounter Details Date Type Department Care Team (Late Contact Info) Description 01/11/2024 Clinisync Result Encounter [facility] External Department Unsolicited Sherri Reynolds PA [address] [place] [address] Dr [place], [place] [address] Social History Tobacco Use Types Packs/Day Years Used Date Smoking Tobacco: Never Alcohol Use Standard Drinks/Week Comments Never 0 (1 standard drink = 0.6 oz pur e alcohol) Comments Unknown Sex and Gender Information Value Date Recorded Sex Assigned at Female 11/19/2023 4:25 PM EDT Legal Sex Female 6:51 PM EDT Gender Identity Female 11/19/2023 4:25 PM EDT Sexual Orientation Not on file documented as of this encounter Plan of Treatment Upcoming Encounters Date Type Department Care Team ([facility] Contact Info) Description 01/12/2025 3:00 PM EDT Office Visit [facility] [address] [place] [address] Sherri Reynolds PA [address] [place] [address] Dr [place], [place] [address] documented as of this encounter Procedures Procedure Name Priority Date/Time Associated Diagnosis Comments MM TOMOSYNTHESIS SCREENING BI 01/11/2024 9:13 AM EDT documented in this encounter Results * MM TOMOSYNTHESIS SCREENING BI (01/11/2024 9:13 AM EDT) Anatomical Region Laterality Modality Other 01/11/2024 9:13 AM EDT Narrative 01/11/2024 9:14 AM EDT The [address] [address] Mammography Report Signed Patient: RAMY GUSMAN MR#: [id number] : 1980 Acct:[id number] Age/Sex: 43 / F ADM Date: 01/08/24 Loc: MAMMO Attending Dr: Sherri Reynolds Ordering Physician: Sherri Reynolds Results: Date of Service: 01/08/24 Follow Up: Procedure(s): MM tomosynthesis screening BI Accession Number(s): [id number] cc: Sherri Reynolds; Bipin Martell M.D. Patient Name: RAMY GUSMAN MR#: [id number] : 1980 Exam Date: 01/08/2024 Ordering Doctor: [...] uterine cancer at age 40. LOCATION: [facility] BREAST COMPOSITION: The breasts are heterogeneously [...] M.D. Signed By: 01/11/24913 DD/ 2 TD/TT: Pump And Blower Operator: Procedure Note Radiology, Radiologist, MD - 01/11/2024 [place] [address] Mammography Report Signed Patient: RAMY GUSMAN MMR#: [id number] : 1980Acct:[id number] Age/Sex: 43 / FADM Date: 01/08/24 Loc: MAMMO Attending Dr: Sherri Reynolds Ordering Physician: Sherri ReynoldsResults: Date of Service: 01/08/24Follow Up: Procedure(s): MM tomosynthesis screening BI Accession Number(s): [id number] cc: Sherri Reynolds; Bipin Martell M.D. Patient Name: RAMY GUSMAN MR#: [id number] : 1980 Exam Date: 01/08/2024 Ordering Doctor: [...] uterine cancer at age 40. LOCATION: [facility] BREAST COMPOSITION: The breasts are heterogeneously [...] Fernández M.D. Signed By:01/11/24913 DD/ 2 TD/TT: Pump And Blower Operator: us Sherri [facility] Final Result documented in this encounter Visit Diagnoses Not on filedocumented in this encounter
--- OUTSIDE RECORDS SUMMARY | 2024-11-26 06:50 | XMS_ITS | Clinical Summary ---
Author Organization [facility] Address [address] [place] [address] [place] [address] Care Team Providers Care Furnace Clerk Name Role Phone Pedro Christian DO Primary Care Provider [phone] Allergies No known active allergies Medications albuterol (2.5 MG/3ML) 0.083% inhalation solution 2.5 mg by Nebulization route every 6 hours as needed. Active albuterol 108 (90 BASE) MCG/ACT Aero Soln take 1 puff by inhalation every 6 hours as needed for Wheezing. Active meclizine 25 MG Tab take 25 mg by mouth daily.. 6 Active Budesonide (RHINOCORT ALLERGY NA) by Nasal route.. A ctive Budesonide-Form oterol Fumarate (SYMBICORT IN) take by inhalation.. Active PREDNISONE 10 MG Tab 4 tabs/day for 2 wks then 3.5 tabs x 1wk, 3tabs x 1 wk, 2.5 tabs x 1 wk, 2 tabs x 1wk, 1.5 tabs x 1wk, 1 tab/day x 1wk, 1/2tab/day x 1 wk 160 tablet 7 Active Additional Information Patient not taking.Reported on 06/11/2017 vedolizumab (ENTYVIO) 300 MG Recon Soln by Intravenous route. Every 8 weeks Active sertraline 50 MG Tab tablet Take 50 mg by mouth daily. Active Active Problems Problem Noted Date Diagnosed Date Ulcerative colitis 06/11/2017 Overview (06/11/2017): Added automatically from request for surgery [id number] Obesity: body mass index of 35.0-39.9 09/25/2016 Overview (08/07/2022): 08/05/22 IMO Update Family History Medical History Relation Name Comments Diabetes Maternal Grandfather Andrés Saini Type 2 GI Disease Maternal Grandfather Andrés Saini Divert iculosis Cancer- Other Maternal Grandmother Maryjane jackson john Ovarian cancer Other - Specify Mother lung disease GI Disease Paternal Grandfather Spencer Palacio He has diverticulitis Stroke Paternal Grandmother Maryjane Palacio Intellectual Disability/DD/Autism Son Asim [place] Aspergers Relation Name Status Comments Maternal Grandfather Andrés Saini Alive Maternal Grandmother Maryjane saini Mother Alive Paternal Grandfather Spencer Palacio Paternal Grandmother Maryjane Palacio Son Asim [place] Social History Tobacco Use Types Packs/Day Years Used Date Smoking Tobacco: Never Smokeless Tobacco: Never Alcohol Use Standard Drinks/Week Comments No 0 (1 standard drink = 0.6 oz pur e alcohol) Comments No Sex and Gender Information Value Date Recorded Sex Assigned at Not on file Legal Sex Female 10:20 AM EST Gender Identity Female Sexual Orientation Not on file Last Filed Vital Signs Vital Sign Reading Time Taken Comments Blood Pressure 108/73 09/03/2017 10:59 AM EDT Pulse 76 09/03/2017 10:59 AM EDT Temperature - - Respiratory Rate 14 09/03/2017 10:59 AM EDT Oxygen Saturation 100% 09/03/2017 10:59 AM EDT Inhaled Oxygen Concentration - - Weight 111.1 kg (245 lb) 06/11/2017 12:45 PM EST with shoes Height 165.1 cm (5' 5 ) 09/03/2017 9:40 AM EDT Body Mass Index 40.15 06/11/2017 12:45 PM EST Plan of Treatment Health Maintenance Due Date Last Done Comments TETANUS 1980 HIV SCREENING DISCUSSION 07/16/1995 HEP B VACCINE (1 of 3 - 19+ 3-dose series) 07/16/1999 TDAP (ADULT) 07/16/1999 CERVICAL CANCER SCREENING DISCUSSION 2001 LIPID SCREENING 2020 MAMMOGRAM SCREENING DISCUSSION 2020 COVID-19 VACCINE ( - 2023-2 5 season) 2024 INFLUENZA VACCINE (#1) 2025 HEPATITIS C VIRUS SCREENING Completed 03/27/2016 HPV VACCINE Aged Out No longer eligi ble based on patient's age to complete this topic PNEUMOCOCCAL VACCINE SERIES Aged Out No longer eligible based on patient's age to complete this topic Procedures Procedure Name Priority Date/Time Associated Diagnosis Comments HEPATITIS C ANTIBODY Routine 03/27/2016 2:12 PM EST Ulcerative pancolitis without complication (HCC) from Last 3 Months or Most Recently Relevant to Health Maintenance Results * HEPATITIS C ANTIBODY (03/27/2016 2:12 PM EST) HEP C AB Negative Negative LAB, [facility] 03/27/2016 2:12 PM EST 03/27/2016 6:40 PM EST us Bill Hogue MD IMMUNOLOGY ORDERABLES Final Res ult LAB, [facility] [address] [place] [address] from Last 3 Months or Most Recently Relevant to Health Maintenance Insurance [address] [place] [address] MMO Member Subscriber Plan / Payer (Ef fective 2017-Present) Name:Madhuri Gusman Member ID:Not on file Relation to Subscriber:Spouse Name:KRYSTAL GUSMAN Date of :1977 (Home) [address]: [address] [place] [address] [address] [place] [address] Payer ID:Not on file Type:Not on file Address: [address] [place] [id number] Care Teams Furnace Clerk Relationship Specialty Start Date End Date Pedro Christian DO PCP - General Family Medicine 10/01/15
--- OUTSIDE RECORDS SUMMARY | 2024-11-26 06:50 | XMS_ITS | Encounter Summary ---
Author Organization [facility] Address [address] [facility] [place] [address] Care Team Providers Care Veneer Taper Name Role Phone Unavailable Primary Care Provider Unavailabl e Encounter Details Date Type Department Care Team (Late Contact Info) Description 01/09/2024 Orders Only [facility] [address] [place] [address] Shyla Tavares LPN [address] [place] [address] Social History Tobacco Use Types Packs/Day Years [...] Encounters Date Type Department Care Team (Late Contact Info) Description 01/12/2025 3:00 PM EDT Office Visit [facility] OB [address] [place] [address] Sherri Reynolds PA [address] [place], [facility] documented as of this encounter Procedures Procedure Name Priority Date/Time Associated Diagnosis Comments PAP SMEAR Routine 01/03/2024 12:00 AM EDT documented in this encounter Results * Pap Smear (01/03/2024 12:00 AM EDT) Swab Cervical swab / Unknown us Pooja Nurse [facility] LAB CYTOLOGY ORDERABLES Final Result EXTERNAL LAB documented in this encounter Visit Diagnoses Not on filedocumented in this encounter
--- OUTSIDE RECORDS SUMMARY | 2024-11-26 06:54 | XMS_ITS | CCD ---
Author Organization [facility] CliniSywv Care Team Providers Care Journeyman Operator Assistant Name Role Phone ABERRA, JOSEFINA Unavailable Unavailable HOUSE, JUDITH P Unavailable Unavailable HOUSE, JUDITH P Unavailable Unavailable ABERRA, JOSEFINA Unavailable Unavailable HOUSE, JUDITH P Unavailable Unavailable HOUSE, JUDITH P Unavailable Unavailable HOUSE, JUDITH P Unavailable Unavailable LI, NA Unavailable Unavailable LI, NA Unavailable Unavailable KELLEYA, JOSEFINA Unavailable Unavailable MD Yaquelin Perez Primary Care Provider [phone] MD Reddy Dewitt Attending Provider Reddy [...] HOY ., DR JAMISON Primary Care Unavailable REAGAN, DR KRYSTAL Pelaez Consulting Unavailable LUIS ., [...] Care Unavailable DR YAQUELIN PATINO Consulting Unavailable JADEN, GASPAR Admitting Unavailable CHASITY BOOKER Attending Unavailable DR YAQUELIN PATINO Primary Care Unavailable MD Yaquelin Perez Primary Care Provider [id number] MD Arleth Roach Admit Provider MD Arleth Roach Attending Provider Yaquelin Perez MD Primary Care Provider [phone] Tyler Roach Attending Unavailab Tyler Martinez Admitting Unavailab Yaquelin Sheth Primary Care Unavailable DENISSE CHIANG Attending Unavailable YAQUELIN PEREZ Primary Care Unavailable MUOH, JOSEPH H Referring Unavailable YAQUELIN PEREZ Primary Care Unavailable YAQUELIN PEREZ Primary Care Unavailable YAQUELIN PEREZ Primary Care Unavailable DENISSE CHIANG Admitting Unavailable DENISSE CHIANG Attending Unavailable YAQUELIN PEREZ Primary Care Unavailable YAQUELIN PEREZ Primary Care Unavailable DENISSE CHIANG Attending Unavailable YAQUELIN PEREZ Primary Care Unavailable MUOH, JOSEPH H Attending Unavailable YAQUELIN PEREZ Primary Care Unavailable DENISSE CHIANG Attending Unavailable YAQUELIN PEREZ Primary Care Unavailable Unavailable Primary Care Provider UnavailYOLANDE Peraza Attending Unavailable Sarmini, Melissa Talal Attending Unavaila ble Sarmini, Melissa Milleral Attending Unavaila ble Sarmini, Melissa Talal Referring Unavaila ble Sarmini, Melissa Talal Attending Unavaila ble Sarmini, Torres Talal Admitting Unavaila ble Sarmini, Torres Talal Attending Unavaila ble Sarmini, Melissa Talal Attending Unavaila ble Allergies Allergy Classification Reported Allergen(s) Allergy Type Date of Onset Reaction(s) Facility (9 sources) benzonatate; Translations: [benzonatate] Drug Allergy 5 Eruption of skin (disorder), Swelling (finding), Swelling (morphologic abnormality) [facility] (2 sources) benzonatate; Translations: [Di Crespo] Drug Allergy [facility] Repository Medications Current Medications Medication Drug Class(es) Dates [...] / thiamine 0.0333 mg/ml / vitamin b12 0.087267 mg/ml / zinc sulfate 0.333 mg/ml oral solution (2 sources) Vitamin B12 geriatric multivitamins-mine rals 0.5-0.6-7-0.7 mg elixir Take 5 mL by mouth once daily. Active diphenhydrAMINE (1 source) Histamine-1 Receptor Antagonist Start: 12-24-2023 12.5 mg, intravenous, Once as needed, itching, allergic reaction, Starting on 12/24/23 at 1900, For 1 dose, Recovery (only) [...] 12:00am fexofenadine hydrochloride 180 mg oral tablet (10 sources) Histamine-1 Receptor Antagonist Start: 08-28-2022 take [...] Recovery (only) lamoTRIgine 25 mg oral tablet (11 sources) Mood Stabilizer, Anti-epileptic Agent Start: 09-10-2023 [...] mesalamine 375 mg extended release oral capsule (14 sources) Aminosalicylate Start: 02-01-2024 take 4 capsules by mouth once daily in the morning Apriso 0.375 g oral capsule, extended release 1.5 gm = 4 cap(s), Oral, qAM, # 120 cap(s), Refills(s) 6, Pharmacy: [id number], 166, cm, 09/25/23 14:32:00 EDT, Height/Length Dosing, 79, kg, 09/25/23 14:32:00 EDT, Weight Dosing Start Date: 02/01/24 Status: Ordered Quantity: 120.0 Unit: cap(s) Repeat number: 7 Start: 08-28-2022 take 1 capsule by [facility] once daily in the morning Mesalamine (Apriso) 0.375 gram capsule,extended release 24hr Active 0.375 GM PO Every morning August 28, 2022 12:00am Start: 07-06-2022 End: 09-29-2023 take 4 capsules by mouth once daily in the morning Apriso 0.375 g oral capsule, extended release 1.5 gm = 4 cap(s), Oral, qAM, X 90 day(s), # 360 cap(s), Refills(s) 4, [id number] 166, cm, 07/06/22 13:48:00 EST, Height/Length Dosing, 98.7, kg, 07/06/22 13:48:00 EST, Weight Dosing Start Date: 07/06/22 Stop Date: 09/29/23 Status: Ordered mesalamine ER (A priso) 0.375 gram 24 hr capsule Active take 1 capsule by [facility] once daily mesalamine ER (Apriso) 0.375 g [...] pantoprazole 40 mg delayed release oral tablet (3 sources) Proton Pump Inhibitor Start: 09-24-2024 take 1 tablet by mouth once daily Protonix 40 mg Tab-DR = 1 tab(s), Oral, Daily, Refills(s) 0 Start Date: 09/24/24 Status: Ordered Repeat number: 1 phentermine hydrochloride 37.5 mg oral tablet (3 sources) Sympathomimetic Amine Anorectic Start: 09-24-2024 take 1 [...] 1 (one) time per week in the floor coverings installer.. Active riboflavin, selam min B2, (VITAMIN B-2 ORAL) Take by mouth 1 (one) time per week in the floor coverings installer.. Suspended traZODone hydrochloride 50 mg oral tablet (13 sources) Serotonin Reuptake Inhibitor Start: 08-31-2022 traZODONE 50 mg Tab Refills(s) 0 Start Date: 07/11/23 Status: Ordered Repeat number: 1 Trelegy Ellipta 200 mcg-62.5 mcg-25 mcg/inh inhalation powder (3 sources) Start: 09-24-2024 take 1 puff(s) by inhalation once daily Trelegy Ellipta 200 mcg-62.5 mcg-25 mcg/inh inhalation powder 1 puff(s), Inhalation, Daily, Refill(s) 0 Start Date: 09/24/24 Status: Ordered Repeat number: 1 Ytbqrnt-Ugnl-Gjpqn -Oreg-Capryl (1 source) Start: 08-28-2022 take 1 capsule by mouth once daily Mvxhori-Nulf-Qv aqz-Qzhe-Ywsuuz Active 1 CAP PO Daily August 28, [...] venlafaxine 75 mg extended release oral capsule (14 sources) Serotonin and Norepinephrine Reuptake Inhibitor Start: 07-11-2023 venlafaxine 75 mg Cap-ER Refills(s) 0 Start Date: 07/11/23 Status: Ordered Repeat number: 1 Start: 08-31-2022 take 37.5 mg by mouth once marii ly Venlafaxine Active 37.5 MG PO Daily 15 August 31, 2022 12:00am take 1 capsule by mo [facility] every twenty-four hours in the morning venlafaxine XR (Effexor XR) 75 MG 24 hr capsule Take 75 mg by mouth in the morning. Active Ventolin HFA 90 mcg/inh Aerosol (8 sources) Start: 09-11-2017 take 2 puff(s) by [...] sodium sulfate 1479 MG Oral Tablet [Sutab] (6 sources) Start: 09-24-2024 take 1 tablet by mouth once Sutab oral tablet See Instructions, 1 EA, Refill(s) 0, NICOLE, Please follow instructions per packaging and physician's handout, [id number], 166, cm, 09/24/24 8:26:00 EDT, Height/Length [...] Dr. Booker. Colonoscopy ordered by Dr. Booker., [facility]/pharmacy #[id number], 166, cm, 06/13/21 8:20:00 EST, Height/Length Dosing, 110.5, kg, 06/13/21 8:20:00 EST, Weight Dosing Start Date: 06/13/21 Status: Ordered Start: 06-13-2021 take 1 tablet by mouth once Lundy tab oral tablet See Instructions, 24 tab(s), Refill(s) 0, Please follow instructions per packaging and physician's handout. Prior to colonoscopy as instructed by Dr. Booker. Colonoscopy ordered by Dr. Booker., [facility]/pharmacy #[id number], 166, cm, 06/13/21 8:20:00 EST, Heigh... Start Date: 06/13/21 Status: Ordered 2 ml [...] months, # 26 cap(s), Refills(s) 0, Pharmacy: [facility] #[id number], 166, cm, 07/11/23 8:09:00 EST, Height/Length Dosing, 82.6, kg, 07/11/23 8:09:00 EST, Weight Dosing Start Date: 07/16/23 Stop Date: 01/12/24 Status: Ordered Problems Active Problems Problem Classification Problem Date Documented Da te Episodic/Chronic Anal and rectal conditions (2 sources) Rectal prolapse; Translations: [Rectal prolapse] Onset: 09-25-2023 Episodic Anxiety disorders (2 sources) Anxiety; Translations: [Anxiety disorder, unspecified] 08-29-2022 Chronic Asthma (9 sources) Asthma without status asthmaticus; Translations: [Asthma, unspecified, unspecified status] Onset: 02-28-2008 09-06-2017 Chronic Comment on above: no problems Attention-deficit, conduct, and disruptive behavior disorders (1 source) Attention deficit hyperactivity disorder; Translations: [Attention-deficit hyperactivity disorder, unspecified type] 08-29-2022 Chronic Attention-deficit, conduct, and disruptive behavior disorders (1 source) Attention-deficit hyperactivity disorder, unspecified type; Translations: [Attention deficit disorder with hyperactivity] 08-31-2022 Chronic Biliary tract disease (16 sources) Acute cholecystitis; Translations: [Common bile duct calculus] 09-06-2017 Episodic Cardiac dysrhythmias (2 sources) Palpitations; Translations: [Palpitations] Onset: 10-20-2024 Episodic Diabetes mellitus without complication (8 sources) Diabetes mellitus 09-06-2017 Chronic Diseases of [...] disorder, not elsewhere classified] Onset: 02-28-2008 Chronic Nonspecific chest pain (2 sources) Other chest pain; Translations: [Other chest pain] Onset: 10-20-2024 Episodic Other aftercare (1 source) Other keno terminal operator (current) drug therapy; Translations: [OTH AUTOMATIC BUFFING WHEEL FORMER CURRENT DRUG THERAPY] Onset: 08-30-2022 Episodic Other circulatory disease (2 sources) Elevated blood-pressure reading, without diagnosis of hypertension; Translations: [Elevated blood-pressure reading, without diagnosis of hypertension] Onset: 10-20-2024 Episodic Other gastrointestinal disorders (1 source) Constipation, unspecified; Translations: [Constipation, unspecified] Onset: 09-24-2024 Episodic Other hereditary and degenerative nervous system conditions (1 source) Restless legs; Translations: [Restless legs syndrome [RLS]] Onset: 02-28-2008 Chronic Other hereditary and degenerative nervous system conditions (1 source) Restless legs syndrome; Translations: [RESTLESS LEGS SYNDROME] Onset: 06-12-2022 Chronic Other lower respiratory disease (2 sources) Shortness of breath; Translations: [Shortness of breath] Onset: 10-20-2024 Episodic Other nervous system disorders (1 source) Cervical [...] Chronic Other nutritional; endocrine; and metabolic disorders (8 sources) Body mass index 30+ - obesity [...] ORGN/SYS] Onset: 02-02-2022 Episodic Residual codes; unclassified (14 sources) Family history of cancer Onset: 02-03-2022 07-09-2023 Episodic Spondylosis; intervertebral disc disorders; other back problems (1 source) Radiculopathy, lumbar region Onset: 08-30-2021 Resolved: 08-30-2021 Episodic Unclassified (1 source) Ulcerative (chronic) pancolitis with other complication; Translations: [Ulcerative (chronic) pancolitis with other complication] Onset: 09-03-2017 Unclassified (1 source) Follow-up; Translations: [Follow-up] Onset: 06-11-2017 Results Test Name Value Interpretation Reference Range Facility Gastroenterology Office/Clin ic Noteon 11-06-2024 Gastroenterology Office/Clinic Note Gastroenterology Office/Clinic Note Chief Complaint Colonoscopy results HPI Staff Established patient is a(n) 44 year old female who presents today for a follow-up to Colonoscopy on 10/07/24. 1 year colon recall placed. Labs not completed as ordered at last visit. GI complaints: no Any blood thinners? no Any GLP-1 agonists? no History of Present Illness Reviewed HPI collected by staff Review of Systems PHQ Score Initial Depression Screen Score: 0 SCORE All systems reviewed, negative; Except for above Physical Exam Vitals & Measurements HR: 75(Peripheral) BP: 119/84 HT: 65 in HT: 166 cm WT: 194.888 lb WT: 88.4 kg BMI: 32.08 No acute distress Procedure Colonoscopy: 1. Small internal hemorrhoids. 2. Mild diverticulosis in the left colon and distal transverse colon, otherwise normal colonic mucosa, normal vascular pattern, Sparks score 0. Dysplasia screening was done using white light and NBI as well as biopsies every 10 cm 3. Normal examined terminal ileum RECOMMENDATIONS: Repeat colonoscopy in 1 year based on pathology Pathology: Final Diagnosis ( Modified ) A: TRANSVERSE COLON, BIOPSY: ARCHITECTURALLY NORMAL COLONIC GLANDULAR MUCOSA - NO DIAGNOSTIC EVIDENCE OF LYMPHOCYTIC/MICROSCOPI C OR COLLAGENOUS COLITIS B: RECTUM, BIOPSY: ARCHITECTURALLY NORMAL COLONIC GLANDULAR MUCOSA - NO DIAGNOSTIC EVIDENCE OF LYMPHOCYTIC/MICROSCOPI C OR COLLAGENOUS COLITIS - FOCAL MUCOSAL LYMPHOID AGGREGATES PRESENT C: RIGHT COLON, BIOPSY: ARCHITECTURALLY NORMAL COLONIC GLANDULAR MUCOSA - NO DIAGNOSTIC EVIDENCE OF LYMPHOCYTIC/MICROSCOPI C OR COLLAGENOUS COLITIS D: LEFT COLON, BIOPSY: ARCHITECTURALLY NORMAL COLONIC GLANDULAR MUCOSA - NO DIAGNOSTIC EVIDENCE OF LYMPHOCYTIC/MICROSCOPI C OR COLLAGENOUS COLITIS - FOCAL MUCOSAL LYMPHOID AGGREGATES PRESENT Assessment/Plan 1. Chronic pancolonic ulcerative colitis (K51.00: [...] after she stopped it restarted mesalamine, working well Consider Entyvio if there is inflammation on colonoscopy in the future, can discuss IV versus subQ Colonoscopy 2023: small internal and external hemorrhoids, Mild sigmoid diverticulosis, Normal colonic mucosa throughout the colon, Sparks score 0. Tried Turmeric, made her feels sick Mediterranean diet recommended Repeat Colonoscopy annually Up-to-date on vaccinations Recommended annual skin exam with dermatology, wear sunscreen Regarding her skin symptoms, she possibly has overlapping SLE with the face rash and Raynaud's phenomena. She did see derm who reportedly could not figure this out. She c/o weather-sensitive joint aches, no stiffness She believes her vision has changed but denies eye pain Colonoscopy 10/2024: Small internal hemorrhoids, mild diverticulosis, Sparks score 0. Dysplasia screening was done using white light and NBI as well as biopsies every 10 cm, Biopsies were normal Still taking Apriso In full clinical and endoscopic remission I, Pamela Millan, personally scribed for Melissa Rivera on 11/05/2024 08:39:34. . Follow-up With When Contact Information Miguel HAQUE, Melissa Talavera [facility], [facility] In 1 year [address], [address] [phone] [phone] Additional Instructions: Problem List/Past Medical History Ongoing BMI 38.0-38.9,adult [...] 40 mg Tab-DR, 1 tab(s), Oral, Daily Sutab oral tablet, See Instructions traZODONE 50 mg Tab Trelegy Ellipta 200 mcg-62.5 mcg-25 mcg/inh inhalation powder, 1 puff(s), Inhalation, Daily venlafaxine 75 mg Cap-ER Ventolin HFA 90 mcg/inh Aerosol, 2 puff(s), Inhalation, QID, PRN Allergies Tessalon Perles (Swelling, Rash) benzonatate (Eruption, Swelling) Social History Alcohol - Denies Alcohol Use, 09/06/2017 Ne (more content not included)... Normal [facility] Comment on above: Result Comment: Elec tronically Signed By: Miguel HAQUE, Melissa Talavera\.br\Date and Time Signed: 11/06/24 09:41 EDT\.br\Electronically Co-Signed By: Pamela Millan MA\.br\Date and Time Co-Signed: 11/05/24 08:46 EDT Ambulatory Visit Summaryon 0 11-05-2024 Ambulatory Visit Summary Ambulatory Visit Summary RAMY MARTINEZ Jacqueline :1980 Visit Date:11/05/2024 Ambulatory Visit Instructions Your Diagnosis Chronic pancolonic ulcerative colitis Your Care Team Attending Physician - Melissa Rivera MD Primary Care Physician - Yaquelin Perez MD This Is Your Medications List Contact prescribing physician if questions or concerns albuterol (Ventolin HFA 90 mcg/inh Aerosol) fexofenadine (Danya) fluticasone/umeclidini um/vilanterol (Trelegy Ellipta 200 mcg-62.5 mcg-25 mcg/inh inhalation powder) lamotrigine (Lamictal 25 mg Tab) magnesium sulfate/potass Cl/sodium sulf (Sutab oral tablet) mesalamine (Apriso 0.375 g oral capsule, extended release) pantoprazole (Protonix 40 mg Tab-DR) phentermine (phentermine 37.5 mg Tab) trazodone (traZODONE 50 mg Tab) venlafaxine (venlafaxine 75 mg Cap-ER) Procedures Performed Colonoscopy (09/10/2023), Laparoscopic cholecystectomy (09/07/2017), Bilateral tubal ligation, Colonoscopy, Endometrial ablation, Hemorrhoid operation, Hemorrhoids, Histology tonsillectomy, History of hernia repair. Discharge Vitals Heart Rate (Peripheral) 75 Blood Pressure 119/84 Height 166 cm Height 65 in Weight 88.4 kg Weight 194.888 lb BMI 32.08 What to do next Scheduled Follow-Up Appointments Sunday2025 8:15 AM EDT With: Miguel HAQUE, Melissa Talavera Where: [facility] [address] [place] [address]- You Need to Schedule the Following Appointments Follow Up with Miguel HAQUE, Melissa Talavera, GAS, MED When: In 1 year Where: [address], [address] [place] [address]- [phone] Medications What How Much When Instructions Unchanged [...] prescribing physician if questions or concerns Unchanged magnesium sulfate/ potass Cl/ sodium sulf (Sutab oral tablet) See instructions Please follow instructions per packaging and physician's handout Contact prescribing physician if questions or concerns [...] you for choosing us for your care. Patient Portal You may access all of your results and other medical record information on our secure patient portal. If you are not signed up for this yet, please contact [employer] at [phone] to get signed up today. Language Information Language assistance services are available as needed. Normal [facility] Reminderson 10-21-2024 Reminders Reminders From: Penny Saldivar MA S To: [facility] - Reminders/Recalls; Sent: 10/21/2024 11:48:28 EDT Show up: 09/04/2025 11:48:00 EDT Subject: colon recall Due Date/Time: 10/07/2025 11:48:00 EDT Reminder/Recall [address] Rivera 10/07/24 Normal [facility] Office Visiton 10-20-2024 Follow-up visit [id number] Yonas Martinez 1980 F Date Provider Department Center 10/20/2024 SamYOLANDE NGUYEN CARD [facility] Family History Problem Relation Age of Onset Lung cancer Mother Hypertension Father Stroke Paternal Grandmother Coronary artery disease Paternal Grandmother Family Status - Relation Status Age at Mother Father Alive Paternal Grandmother Level of Service:35084 NM OFFICE/OP CONSLTJ NEW/EST PT MOD MDM 40 MINUTES Normal [facility] Surgical Pathology Reporton 10-10-2024 Surgical Pathology Report [facility] [address] [place] [address]- Surgical Pathology Report Collected Date/Time: 10/07/2024 10:33 EDT Pathologist: Emilia HAQUE, Myke Madera Received Date/Time: 10/07/2024 18:00 TRACY Rivera MD, Melissa Rivera MD, Melissa Talavera 07 Surgical Pathology Report - 10/10/2024 16:11 EDT - Auth (Verified) Final Diagnosis A: TRANSVERSE COLON, BIOPSY: ARCHITECTURALLY NORMAL COLONIC GLANDULAR MUCOSA - NO DIAGNOSTIC EVIDENCE OF LYMPHOCYTIC/MICROSCOPI C OR COLLAGENOUS COLITIS B: RECTUM, BIOPSY: ARCHITECTURALLY NORMAL COLONIC GLANDULAR MUCOSA - NO DIAGNOSTIC EVIDENCE OF LYMPHOCYTIC/MICROSCOPI C OR COLLAGENOUS COLITIS - FOCAL MUCOSAL LYMPHOID AGGREGATES PRESENT C: RIGHT COLON, BIOPSY: ARCHITECTURALLY NORMAL COLONIC GLANDULAR MUCOSA - NO DIAGNOSTIC EVIDENCE OF LYMPHOCYTIC/MICROSCOPI C OR COLLAGENOUS COLITIS D: LEFT COLON, BIOPSY: ARCHITECTURALLY NORMAL COLONIC GLANDULAR MUCOSA - NO DIAGNOSTIC EVIDENCE OF LYMPHOCYTIC/MICROSCOPI C OR COLLAGENOUS COLITIS - FOCAL MUCOSAL LYMPHOID AGGREGATES PRESENT (Electronic Signature) Myke Nieto MD 10/10/2024 16:11 Clinical Information Ulcerative colitis Pre-Op Diagnosis: Ulcerative colitis Procedure: Colonoscopy Post-Op Diagnosis: _ Specimen(s) Received A.Transverse Colon Biopsies B.Rectal Biopsies C.Right Colon Biopsies D.Left Colon Biopsies Gross Description A: Designated as transverse colon biopsies are two irregular nguyen feathery segments of soft tissue, the largest of 0.5 x 0.2 x 0.1 cm, the smallest 0.1 to 0.2 cm in maximum dimension, totally submitted in one cassette. B: Designated as rectal biopsies are two similar irregular nguyen nodular segments of soft tissue, larger segment 0.3 x 0.2 x 0.1 cm, the smaller segment 0.1 to 0.2 cm in maximum dimension, totally submitted in one cassette. Surgical Pathology Report Collected Date/Time: 10/07/2024 10:33 EDT Pathologist: Myke Nieto MD Received Date/Time: 10/07/2024 18:00 СЕРГЕЙT Miguel HAQUE, Melissa Rivera MD, Melissa Talavera Gross Description C: Designated as right colon biopsies are two irregular nguyen feathery segments of soft tissue, one segment 0.4 x 0.2 x 0.1 cm, remaining segment 0.2 x 0.1 cm, totally submitted in one cassette. D: Designated as left colon biopsies are two similar irregular nguyen feathery segments of soft tissue, one segment 0.4 x 0.2 x 0.1 cm, remaining segment 0.2 cm in maximum dimension, totally submitted in one cassette. () [facility] Microscopic Description Microscopic examination performed unless gross only specified. Quality was accessed and acceptable. This report was transcribed using voice recognition technology and might contain unintended computerized fly tier errors. Normal [facility] Comment on above: Performed By: #### 4 [id number] #### [facility] [address] [place] [address] Ambulatory Visit Summaryon 0 09-24-2024 Ambulatory Visit [...] choosing us for your care. [facility] Gastroenterology Office/Clin ic Noteon 09-24-2024 Gastroenterology Office/Clinic [...] so we will place a referral to [facility] Rheumatology. 2. Rectal prolapse (K62.3: Rectal prolapse) referral placed to colorectal at [facility] Colonoscopy 09/10/23: Impression and Plan 1. Small [...] can disc (more content not included)... Normal [facility] Comment on above: Result Comment: Elec [...] containers..01 ThinPrep Vial Age Algo ACOG Amirah... -65 01 FLAG LEGEND: L-Low Normal,H-High Normal,LL-Alert Low,HH-Alert High <-Panic Low,>-Panic High,A-Abnormal,AA-Critical Abnormal Performed at: 01 = [address] [place] [address] Zainab Mckeon MD, HPV APTIMA Negative Negative [facility] Comment on above: This nucleic acid am plification test detects fourteen high- risk HPV types (16,18,31,33,35,39,45,51,52,56,58,59,66,68) without differentiation. Performed at: =[facility], [place] [id number] Training Consultant: Zainab Mckeon MD, Phone: [phone] Performed at: - [address], [place] [id number] Training Consultant: Zainab Mckeon MD, Phone: [phone] IGP, APTIMA HPV, RFX 16/18,45 Note . [facility] Comment on above: TESTS RESULT FLAG UN ITS REF RANGE LAB DIAGNOSIS: 02 NEGATIVE FOR INTRAEPITHELIAL LESION OR MALIGNANCY. Specimen adequacy: 02 Satisfactory for evaluation. No endocervical component is identified. Performed by: Charles Cabrera, Prepress Operator (ASCP) . 02 Note: Note 02 The [...] High <-Panic Low,>-Panic High,A-Abnormal,AA-Critical Abnormal Performed at: [facility] [address] [place] [address] Zainab Mckeon MD, BRUSH-SPATULA CERVIX ENDOCERVIX [facility] Glucose Test strip manual (B ld) [Mass/Vol]on 12-24-2023 Glucose [Mass/Vol] 99 mg/dL 74 - 99 mg/dL [facility] Interpretation and review of laboratory results Normal [facility] Glucose [Mass/Vol] 99 mg/dL Normal 74-99 [facility] Comment on above: Performed By: #### 2 [id number] #### SABRINA GERMAN ([id number]) [facility] ([facility]) [address] [place] [address] HCG ( test) IA.rapi d Ql (U)Ordered By: Josseline Spring on 12-24-2023 HCG ( test) Ql (U) Negative NEGATIVE [facility] Interpretation and review of laboratory results Normal [facility] HCG ( test) IA.rapi d Ql (U)on 12-24-2023 HCG ( test) Ql (U) Negative Normal NEGATIVE [facility] Comment on above: Performed By: #### 8 0384-1 #### SABRINA GERMAN ([id number]) [facility] ([facility]) [id number] [place] [id number] Basic metabolic 2000 panelon 12-13-2023 Anion gap [Moles/Vol] 12 mmol/L Normal 10-20 [facility] Comment on above: Performed By: #### 3 084-1 #### KADE Sandra ([id number]) [facility] ([facility]) [address] [place] [address] Calcium [Mass/Vol] 10.2 mg/dL Normal 8.6-10.3 [facility] Comment on above: Performed By: #### 3 084-1 #### KADE Sandra ([id number]) [facility] ([facility]) [address] [place] [address] Chloride [Moles/Vol] 104 mmol/L Normal 98-107 [facility] Comment on above: Performed By: #### 3 084-1 #### KADE Sandra ([id number]) [facility] ([facility]) [address] [place] [address] CO2 [Moles/Vol] 30 mmol/L Normal 21-32 [facility] Comment on above: Performed By: #### 3 084-1 #### KADE Sandra ([id number]) [facility] ([facility]) [address] [place] [address] Creatinine [Mass/Vol] 0.66 mg/dL Normal 0.50-1.05 [facility] Comment on above: Performed By: #### 3 084-1 #### KADE Sandra ([id number]) [facility] ([facility]) [address] [place] [address] 38629 GFR/1.73 sq M.predicted MDRD (S/P/Bld) [Vol rate/Area] mL/min/{1.73_m2} Normal >60 [facility] Comment on above: Result Comment: Calc ulations of estimated GFR are performed using the 2020 CKD-EPI Study Refit equation without the race variable for the IDMS-Traceable creatinine methods. https://jasn.asnjournals.org/content/early//ASN.49565 57909 Performed By: #### 3 084-1 #### KADE Sandra ([id number]) [facility] ([facility]) [address] [place] [address] Glucose [Mass/Vol] 117 mg/dL High 74-99 [facility] Comment on above: Performed By: #### 3 084-1 #### KADE Sandra ([id number]) [facility] ([facility]) [address] [place] [address] Potassium [Moles/Vol] 4.9 mmol/L Normal 3.5-5.3 [facility] Comment on above: Performed By: #### 3 084-1 #### KADE Sandra ([id number]) [facility] ([facility]) [address] [place] [address] Sodium [Moles/Vol] 141 mmol/L Normal 136-145 [facility] Comment on above: Performed By: #### 3 084-1 #### KADE Sandra ([id number]) [facility] ([facility]) [address] [place] [address] 73944 Urea nitrogen [Mass/Vol] 7 mg/dL Normal 6-23 [facility] Comment on above: Performed By: #### 3 084-1 #### KADE Sandra ([id number]) [facility] ([facility]) [address] [place] [address] 62505 Beta 2 glycoprotein 1 Ab IgA and IgG and IgM panel (S)on 11-28-2023 Beta 2 glycoprotein 1 IgA Qn (S) 34.2 U/mL High <20.0 [facility] Comment on above: Result Comment: Elev ated [...] By: #### 3 084-1 #### KADE Sandra ([id number]) [facility] ([facility]) [address] [place] [address] 13787 Beta 2 glycoprotein 1 IgG Qn (S) 2.6 U/mL Normal <20.0 [facility] Comment on above: Result Comment: Elev ated levels of IgG anti-Beta 2 Glycoprotein-I on 2 occasions at least 12 weeks apart are laboratory criteria for anti-phospholipid syndrome according to an international consensus (J Thromb Haemost 2006 4:295). Performed By: #### 3 084-1 #### KADE Sandra ([id number]) [facility] ([facility]) [id number] [place] [address] 29823 Beta 2 glycoprotein 1 IgM Qn (S) 27.5 U/mL High <20.0 [facility] Comment on above: Result Comment: Elev ated [...] By: #### 3 084-1 #### KADE Sandra ([id number]) [facility] ([facility]) [address] [place] [address] 98523 C reactive proteinon 024 CRP [Mass/Vol] mg/L Normal <1.00 [facility] Comment on above: Performed By: #### 1 988-5 #### KADE Sandra ([id number]) [facility] ([facility]) [address] [place] [address] 77727 Calcidiolon 11-28-2023 25-hydroxyvitamin D3 [Mass/Vol] 65 ng/mL Normal 30-100 [facility] Comment on above: Order Comment: Defic iency: < 20 ng/ml Insufficiency: 20-29 ng/ml Sufficiency: 30-100 ng/ml This assay accurately quantifies the sum of Vitamin D3, 25-Hydroxy and Vitamin D2,25-Hydroxy. Performed By: #### 1 989-3 #### KADE Sandra ([id number]) [facility] ([facility]) [address] [place] [address] 89030 Cardiolipin Ab IA Qn (S)on 0 11-28-2023 Cardiolipin IgA Qn 39.0 APL U/mL High <20.0 [facility] Comment on above: Result Comment: Elev ated levels of IgA anti-cardiolipin have not been included in the laboratory criteria for anti-phospholipid syndrome according to an international consensus (J Thromb Haemost 2006 4:295). It may be helpful in identifying subgroups of patients at risk for specific clinical manifestations of anti-phospholipid syndrome. Performed By: #### 3 180-7 #### KADE Sandra ([id number]) [facility] ([facility]) [address] [place] [address] 18804 Cardiolipin IgG IA Qn (S) 2.4 GPL U/mL Normal <20.0 [facility] Comment on above: Result Comment: Elev ated levels of IgG anti-cardiolipin on 2 occasions at least 12 weeks apart are laboratory criteria for anti-phospholipid syndrome according to an international consensus (J Thromb Haemost 2006 4:295). Performed By: #### 3 180-7 #### KADE Sandra ([id number]) [facility] ([facility]) [address] [place] [address] 26371 Cardiolipin IgM IA Qn (S) 27.7 MPL U/mL High <20.0 [facility] Comment on above: Result Comment: Elev ated [...] By: #### 3 180-7 #### KADE Sandra ([id number]) [facility] ([facility]) [address] [place] [address] 78953 Complement C3on 11-28-2023 Complement C3 [Mass/Vol] 101 mg/dL Normal 87-200 [facility] Comment on above: Performed By: #### 4 485-9 #### KADE Sandra ([id number]) [facility] ([facility]) [address] [place] [address] 28995 Complement C4on 11-28-2023 Complement C4 [Mass/Vol] 14 mg/dL Normal 10-50 [facility] Comment on above: Performed By: #### 4 498-2 #### KADE Sandra ([id number]) [facility] ([facility]) [address] [place] [address] 98334 Cyclic citrullinated peptide Ab.IgGon 11-28-2023 Cyclic citrullinated peptide IgG Qn <1 Normal <3 [facility] Comment on above: Order Comment: THE T [...] By: #### 3 3935-8 #### KADE Sandra ([id number]) [facility] ([facility]) [address] [place] [address] ESR Westergren method (Bld) [Velocity]on 11-28-2023 ESR (Bld) [Velocity] mm/h Normal 0-20 [facility] Comment on above: Performed By: #### 4 537-7 #### KADE Sandra ([id number]) [facility] ([facility]) [address] [place], [place] [address] Extractable nuclear Ab panel (S)on 11-28-2023 Centromere protein B Ab Qn (S) <0.2 Normal <1.0 [facility] Comment on above: Result Comment: < 1. 0 = NEGATIVE >=1.0 = POSITIVE Performed By: #### 3 084-1 #### KADE Sandra ([id number]) [facility] ([facility]) [address] [place] [address] 65952 Chromatin Ab Qn <0.2 Normal <1.0 [facility] Comment on above: Result Comment: < 1. 0 = NEGATIVE >=1.0 = POSITIVE Performed By: #### 3 084-1 #### KADE Sandra ([id number]) [facility] ([facility]) [address] [place] [address] 64296 DNA double strand Ab Qn (S) 1.0 [IU]/mL Normal <5.0 [facility] Comment on above: Result Comment: NEGA TIVE: <= 4 IU/ML EQUIVOCAL: 5- 9 IU/ML POSITIVE: >=10 IU/ML Performed By: #### 3 084-1 #### KADE Sandra ([id number]) [facility] ([facility]) [address] [place] [address] 62993 Meryl-1 extractable nuclear Ab IA Ql (S) <0.2 Normal <1.0 [facility] Comment on above: Result Comment: < 1. 0 = NEGATIVE >=1.0 = POSITIVE Performed By: #### 3 084-1 #### KADE Sandra ([id number]) [facility] ([facility]) [address] [place] [address] 30819 Ribonucleoprotein extractable nuclear Ab IA Qn (S) 0.6 AI Normal <1.0 [facility] Comment on above: Result Comment: < 1. 0 = NEGATIVE >=1.0 = POSITIVE Performed By: #### 3 084-1 #### KADE Sandra ([id number]) [facility] ([facility]) [address] [place] [address] 99797 Ribosomal P Ab Qn (S) <0.2 Normal <1.0 [facility] Comment on above: Result Comment: < 1. 0 = NEGATIVE >=1.0 = POSITIVE Performed By: #### 3 084-1 #### KADE Sandra ([id number]) [facility] ([facility]) [address] [place] [address] 24596 SCL-70 extractable nuclear Ab IA Ql (S) <0.2 Normal <1.0 [facility] Comment on above: Result Comment: < 1. 0 = NEGATIVE >=1.0 = POSITIVE Performed By: #### 3 084-1 #### KADE Sandra ([id number]) [facility] ([facility]) [address] [place] [address] 26640 Sjogrens syndrome-A extractable nuclear Ab IA Qn (S) <0.2 Normal <1.0 [facility] Comment on above: Result Comment: < 1. 0 = NEGATIVE >=1.0 = POSITIVE Performed By: #### 3 084-1 #### KADE Sandra ([id number]) [facility] ([facility]) [address] [place] [address] 47914 Sjogrens syndrome-B extractable nuclear Ab IA Qn (S) <0.2 Normal <1.0 [facility] Comment on above: Result Comment: < 1. 0 = NEGATIVE >=1.0 = POSITIVE Performed By: #### 3 084-1 #### KADE Sandra ([id number]) [facility] ([facility]) [address] [place] [address] 49538 Dias extractable nuclear Ab IA Qn (S) <0.2 Normal <1.0 [facility] Comment on above: Result Comment: < 1. 0 = NEGATIVE >=1.0 = POSITIVE Performed By: #### 3 084-1 #### KADE Sandra ([id number]) [facility] ([facility]) [address] [place] [address] 68959 Dias extractable nuclear Ab+Ribonucleoprotein extractable nuclear Ab IA Ql (S) <0.2 Normal <1.0 [facility] Comment on above: Result Comment: < 1. 0 = NEGATIVE >=1.0 = POSITIVE Performed By: #### 3 084-1 #### KADE Sandra ([id number]) [facility] ([facility]) [address] [place] [address] 88465 Nuclear Abon 11-28-2023 Nuclear Ab Hep2 substrate Ql (S) Negative Normal Negative [facility] Comment on above: Result Comment: The Antinuclear Antibody (JERZY) test was performed using indirect immunofluorescence assay with HEp-2 cells slide. Performed By: #### 3 084-1 #### KADE Sandra ([id number]) [facility] ([facility]) [address] [place] [address] 06467 Proteinon 11-28-2023 Protein [Mass/Vol] 6.8 g/dL Normal 6.4-8.2 [facility] Comment on above: Performed By: #### 2 885-2 #### KADE Sandra ([id number]) [facility] ([facility]) [address] [place] [address] 78928 Rheumatoid factoron 11-28-19 Rheumatoid factor Nephelometry Qn (S) <10 Normal 0-15 [facility] Comment on above: Performed By: #### 1 5205-8 #### KADE Sandra ([id number]) [facility] ([facility]) [address] [place] [address] 25339 SERUM PROTEIN ELECTROPHORESI S + IMMUNOFIXATIONon 11-28-2023 Albumin [Mass/Vol] 4.4 g/dL Normal 3.4-5.0 [facility] Comment on above: Performed By: #### 3 084-1 #### KADE Sandra ([id number]) [facility] ([facility]) [address] [place] [address] 48374 ALPHA 1 GLOBULIN 0.3 g/dL Normal 0.2-0.6 [facility] Comment on above: Performed By: #### 3 084-1 #### KADE Sandra ([id number]) [facility] ([facility]) [address] [place] [address] 64430 ALPHA 2 GLOBULIN 0.5 g/dL Normal 0.4-1.1 [facility] Comment on above: Performed By: #### 3 084-1 #### KADE Sandra ([id number]) [facility] ([facility]) [address] [place] [address] 46427 BETA GLOBULIN 0.6 g/dL Normal 0.5-1.2 [facility] Comment on above: Performed By: #### 3 084-1 #### KADE Sandra ([id number]) [facility] ([facility]) [address] [place] [address] 95332 GAMMA GLOBULIN 1.0 g/dL Normal 0.5-1.4 [facility] Comment on above: Performed By: #### 3 084-1 #### KADE Sandra ([id number]) [facility] ([facility]) [address] [place] [address] 72367 IMMUNOFIXATION COMMENT Detected Normal [facility] Comment on above: Performed By: #### 3 084-1 #### KADE Sandra ([id number]) [facility] ([facility]) [address] [place], [place] [address] PATH REVIEW - SERUM IMMUNOFIXATION SEE COMMENT [facility] Comment on above: Result Comment: Revi ewed and approved by ALICE MORALES on 12/03/23 at 8:41 PM. Performed By: #### 3 084-1 #### KADE Sandra ([id number]) [facility] ([facility]) [address] [place], [place] [address] PATH REVIEW-SERUM PROTEIN ELECTROPHORESIS SEE COMMENT [facility] Comment on above: Result Comment: Revi ewed and approved by ALICE MORALES on 12/03/23 at 8:41 PM. Performed By: #### 3 084-1 #### KADE Sandra ([id number]) [facility] ([facility]) [address] [place] [address] PROTEIN ELECTROPHORESIS COMMENT Normal. [facility] Comment on above: Performed By: #### 3 084-1 #### KADE Sandra ([id number]) [facility] ([facility]) [address] [place], [place] [address] Urateon 11-28-2023 Urate [Mass/Vol] 1.8 mg/dL Low 2.3-6.7 [facility] Comment on above: Result Comment: Linda puncture immediately after or during the administration of Metamizole may lead to falsely low results. Testing should be performed immediately prior to Metamizole dosing. Performed By: #### 3 084-1 #### KADE Sandra ([id number]) [facility] ([facility]) [address] [place], [place] [address] XR HAND 3+ VIEWS BILATERALon 11-28-2023 XR HAND 3+ VIEWS BILATERAL Interpreted By: Daniel Martins, STUDY: XR HAND 3+ VIEWS BILATERAL; ; 11/28/2023 3:12 pm INDICATION: Signs/Symptoms:r/o erosiosn or calcinosis. COMPARISON: None. ACCESSION NUMBER(S): [id number] ORDERING CLINICIAN: JOSEPH SORIANO FINDINGS: Bilateral hands, three views of each There is no fracture. There is no dislocation. There are no degenerative changes. There is no erosion or chondrocalcinosis. There is no soft tissue abnormality seen. IMPRESSION: Normal radiographs of the hands MACRO: None Signed by: Daniel Martins 11/29/2023 8:41 PM Dictation workstation: [id number] [facility] XR SACROILIAC JOINTS 3+ VIEW Son 11-28-2023 XR SACROILIAC JOINTS 3+ VIEWS Interpreted By: Daniel Martins, STUDY: XR SACROILIAC JOINTS 3+ VIEWS; ; 11/28/2023 3:12 pm INDICATION: Signs/Symptoms:r/o erosions or sacroilitis. COMPARISON: None. ACCESSION NUMBER(S): [id number] ORDERING CLINICIAN: JOSEPH SORIANO FINDINGS: SI joints, three views There is no sclerosis or erosions in the SI joints. No degenerative change seen. There is no fracture. There is no dislocation. There is no lytic or sclerotic lesion. There is no soft tissue abnormality seen. IMPRESSION: Normal radiographs of the sacroiliac joints MACRO: None Signed by: Daniel Martins 11/29/2023 8:41 PM Dictation workstation: [id number] [facility] Anoscopyon 10-09-2023 Denisse Chiang MD 10/09/2023 2:20 PM Anoscopy Date/Time: 10/09/2023 1:37 PM Performed by: Denisse Chiang MD Authorized by: Denisse Chiang MD Consent: Consent obtained: Verbal Consent given by: Patient Procedure details: Internal hemorrhoids: yes (Right and left posterior, large, non-bleeding and non-prolapsing on exam today) Post-procedure details: Procedure completion: Tolerated [facility] Work Phone: [facility] Work Phone: CHEMISTRYOrdered By: SYSTEM SYSTEM on [...] [facility] Comment on above: Result Comment: Shavonnei fied with slide review Erythrocyte distribution width [...] on 08-29-2022 Cholesterol [Mass/Vol] 133 mg/dL 140-200 [facility] Comment on above: Chol less than 200 m g/dl low riskChol 201-239 mg/dl borderline riskChol 240 mg/dl and greater high risk Cholesterol in LDL Calc [Mas s/Vol]Ordered By: Tyler Roach on 08-29-2022 Cholesterol in LDL [Mass/Vol] 78 mg/dL 0-100 [facility] Comment on above: LDL ATP III CLASSIFI CATIONLDL less than 100 mg/dL OptimalLDL 100-129 mg/dL Near or above optimalLDL 130-159 mg/dL Borderline highLDL 160-189 mg/dL HighLDL greater than 189 mg/dL Very high Cholesterol in VLDL Calc [Ma ss/Vol]Ordered By: Tyler Roach on 08-29-2022 Cholesterol in VLDL [Mass/Vol] 12 mg/dL [facility] Serum or plasma high density lipoprotein (HDL) cholesterol measurementOrdered By: Tyler Roach on 08-29-2022 Cholesterol in HDL [Mass/Vol] 42 mg/dL 35-85 [facility] Comment on above: HDL CHOL ATP-III CLA SSIFICATION Cardiovascular RiskHDL > or equal to 60 mg/dL LOWHDL < 40 mg/dL HIGH Serum or plasma total choles terol/high density lipoprotein (HDL) cholesterol mass ratOrdered By: Tyler Roach on 08-29-2022 Cholesterol.total/Chol esterol in HDL [Mass ratio] 3.2 {ratio} <5.0 [facility] Thyrotropin [Units/volume] i n Serum or PlasmaOrdered By: Tyler Roach on 08-29-2022 TSH Qn 0.19 m[IU]/L 0.45-5.33 [facility] Thyroxine (T4) free [Mass/vo lume] in Serum or PlasmaOrdered By: Tyler Roach on 08-29-2022 Free T4 [Mass/Vol] 0.88 ng/dL 0.61-1.12 [facility] Triglyceride [Mass/volume] i n Serum or PlasmaOrdered By: Tyler Roach on 08-29-2022 Triglyceride [Mass/Vol] 63 mg/dL 0-149 [facility] Comment on above: TRIG ATP III CLASSIF ICATIONTRIG less than 150 mg/dL NormalTRIG 150-199 mg/dL Borderline highTRIG 200-500 mg/dL High TRIG greater than 500 mg/dL Very highStandard traceable to the Center for Disease Conrtrol and Prevention (CDC) test method. Vitamin D+Metabolites [Mass/ volume] in Serum or PlasmaOrdered By: Tyler Roach on 08-29-2022 Vitamin D+Metabolites [Mass/Vol] 16.0 ng/mL 30-100 [facility] Comment on above: VITAMIN D STATUS 25( [place])VITAMIN D RANGE (ng/mL) Deficient <20 Insufficient 20 to <30Sufficient 30 to 100Reference: John MF,Pasha NC, Benson LOYD, et al. Evaluation,treatment, and prevention of vitamin D deficiency; an Endocrine Society clinical practice guideline. JCEM. 2010; 96(7):1911-30. ACETAMINOPHENon 08-28-2022 Acetaminophen [Mass/Vol] ug/mL Critically low 10.0-30.0 [facility] Comment on above: Performed By: #### S ALYC, ACET #### [facility] [address] [address] [address] Deepak August AMYLASEon 08-28-2022 Amylase [Catalytic activity/Vol] 33 U/L Normal 25-115 [facility] Comment on above: Performed By: #### B MP, LIVER, LIPA, SHERRI #### [facility] [address] [address] [address] Deepak August CBC AUTO DIFFon 08-28-2022 BASO # 0.1 103/ul Normal 0.0-0.1 [facility] Comment on above: Performed By: #### B MP, LIVER, LIPA, SHERRI #### [facility] [address] [place] [address] Dr. Deepak August Basophils/100 WBC (Bld) 0.5 % Normal 0.2-2.0 [facility] Comment on above: Performed By: #### B MP, LIVER, LIPA, SHERRI #### [facility] [address] [place] [address] Dr. Deepak August EO # 0.1 103/ul Normal 0.0-0.7 [facility] Comment on above: Performed By: #### B MP, LIVER, LIPA, SHERRI #### [facility] [address] [place] [address] Dr. Deepak August Eosinophils/100 WBC (Bld) 1.1 % Normal 0.9-7.0 [facility] Comment on above: Performed By: #### B MP, LIVER, LIPA, SHERRI #### [facility] [address] [place] [address] Dr. Deepak August Erythrocyte distribution width (RBC) [Ratio] 13.3 % Normal 11.0-15.0 [facility] Comment on above: Performed By: #### B MP, LIVER, LIPA, SHERRI #### [facility] [address] [place] [address] Dr. Deepak August Hematocrit (Bld) [Volume fraction] 43.5 % Normal 36.0-48.0 [facility] Comment on above: Performed By: #### B MP, LIVER, LIPA, SHERRI #### [facility] [address] [place] [address] Dr. Deepak August Hemoglobin (Bld) [Mass/Vol] 14.7 g/dL Normal 12.0-16.0 [facility] Comment on above: Performed By: #### B MP, LIVER, LIPA, SHERRI #### [facility] [address] [place] [address] Dr. Deepak August IG # 0.04 10e3/ul Critically high 0.00-0.03 [facility] Comment on above: Performed By: #### B MP, LIVER, LIPA, SHERRI #### [facility] [address] [place] [address] Dr. Deepak August IG % 0.3 % Normal 0.0-0.5 [facility] Comment on above: Performed By: #### B MP, LIVER, LIPA, SHERRI #### [facility] [address] [place] [address] Dr. Deepak August LYMPH # 1.4 103/ul Normal 1.2-3.8 [facility] Comment on above: Performed By: #### B MP, LIVER, LIPA, SHERRI #### [facility] [address] [place] [address] Dr. Deepak August Lymphocytes/100 WBC (Bld) 11.2 % Critically low 20.5-60.0 [facility] Comment on above: Performed By: #### B MP, LIVER, LIPA, SHERRI #### [facility] [address] [place] [address] Dr. Deepak August MANUAL DIFF REQ NO Normal [facility] Comment on above: Performed By: #### B MP, LIVER, LIPA, SHERRI #### [facility] [address] [place] [address] Dr. Deepak August MCH (RBC) [Entitic mass] 29.5 pg Normal 26.7-34.0 [facility] Comment on above: Performed By: #### B MP, LIVER, LIPA, SHERRI #### [facility] [address] [place] [address] Dr. Deepak August MCHC (RBC) [Mass/Vol] 33.8 g/dL Normal 29.9-35.2 [facility] Comment on above: Performed By: #### B MP, LIVER, LIPA, SHERRI #### [facility] [address] [place] [address] Dr. Deepak August MCV (RBC) [Entitic vol] 87.2 fL Normal 81.0-99.0 [facility] Comment on above: Performed By: #### B MP, LIVER, LIPA, SHERRI #### [facility] [address] [place] [address] Dr. Deepak August MONO # 0.7 103/ul Normal 0.3-0.8 [facility] Comment on above: Performed By: #### B MP, LIVER, LIPA, SHERRI #### [facility] [address] [place] [address] Dr. Deepak August Monocytes/100 WBC (Bld) 5.8 % Normal 1.7-12.0 [facility] Comment on above: Performed By: #### B MP, LIVER, LIPA, SHERRI #### [facility] [address] [place] [address] Dr. Deepak August NEUT # 10.0 103/ul Critically high 1.4-6.5 [facility] Comment on above: Performed By: #### B MP, LIVER, LIPA, SHERRI #### [facility] [address] [place] [address] Dr. Deepak August Neutrophils/100 WBC (Bld) 81.1 % Critically high 43.0-75.0 [facility] Comment on above: Performed By: #### B MP, LIVER, LIPA, SHERRI #### [facility] [address] [place] [address] Dr. Deepak August Platelet mean volume (Bld) [Entitic vol] 10.1 fL Normal 9.5-13.5 [facility] [facility] Comment on above: Performed By: #### B MP, LIVER, LIPA, SHERRI #### [facility] [address] [place] [address] Dr. Deepak August PLT 390 103/ul Normal 150-450 [facility] Comment on above: Performed By: #### B MP, LIVER, LIPA, SHERRI #### [facility] [address] [place] [address] Dr. Deepak August RBC 4.99 106/ul Normal 4.20-5.40 [facility] Comment on above: Performed By: #### B MP, LIVER, LIPA, SHERRI #### [facility] [address] [place] [address] Dr. Deepak August WBC 12.4 103/ul Critically high 4.0-11.0 [facility] Comment on above: Performed By: #### B MP, LIVER, LIPA, SHERRI #### [facility] [address] [place] [address] Dr. Deepak August DRUG SCREEN RAPID (URINE)on 08-28-2022 AMP Negative Normal NEGATIVE [facility] Comment on above: Performed By: #### B MP, LIVER, LIPA, SHERRI #### [facility] [address] [place] [address] Dr. Deepak August BAR Negative Normal NEGATIVE [facility] Comment on above: Performed By: #### B MP, LIVER, LIPA, SHERRI #### [facility] [address] [place] [address] Dr. Deepak August BUP Negative Normal NEGATIVE [facility] Comment on above: Performed By: #### B MP, LIVER, LIPA, SHERRI #### [facility] [address] [place] [address] Dr. Deepak August BZO Negative Normal NEGATIVE [facility] Comment on above: Performed By: #### B MP, LIVER, LIPA, SHERRI #### [facility] [address] [place] [address] Dr. Deepak August VERA Negative Normal NEGATIVE [facility] Comment on above: Performed By: #### B MP, LIVER, LIPA, SHERRI #### [facility] [address] [place] [address] Dr. Deepak August CUT-OFFS SEE BELOW Normal [facility] Comment on above: Result Comment: AMP (Amphetamine): [...] #### B MP, LIVER, LIPA, SHERRI #### [facility] [address] [address] [address] Deepak August DRUG CUT HEADER DRUG CLASS TEST SYST EM CUT-OFF CONCENTRATIONS ARE FOLLOWS: Normal [facility] Comment on above: Performed By: #### B MP, LIVER, LIPA, SHERRI #### [facility] [address] [address] [address] Deepak August mAMP Negative Normal NEGATIVE [facility] Comment on above: Performed By: #### B MP, LIVER, LIPA, SHERRI #### [facility] [address] [place] [address] Dr. Deepak August MTD Negative Normal NEGATIVE [facility] Comment on above: Performed By: #### B MP, LIVER, LIPA, SHERRI #### [facility] [address] [place] [address] Dr. Deepak August OPI Negative Normal NEGATIVE [facility] Comment on above: Performed By: #### B MP, LIVER, LIPA, SHERRI #### [facility] [address] [place] [address] Dr. Deepak August OXY Negative Normal NEGATIVE [facility] Comment on above: Performed By: #### B MP, LIVER, LIPA, SHERRI #### [facility] [address] [place] [address] Dr. Deepak August PCP Negative Normal NEGATIVE [facility] Comment on above: Performed By: #### B MP, LIVER, LIPA, SHERRI #### [facility] [address] [place] [address] Dr. Deepak August PPX Negative Normal NEGATIVE [facility] Comment on above: Performed By: #### B MP, LIVER, LIPA, SHERRI #### [facility] [address] [place] [address] Dr. Deepak August TCA Positive Abnormal NEGATIVE [facility] Comment on above: Performed By: #### B MP, LIVER, LIPA, SHERRI #### [facility] [address] [address] [address] Deepak August THC Positive Abnormal NEGATIVE [facility] Comment on above: Performed By: #### B MP, LIVER, LIPA, SHERRI #### [facility] [address] [address] [address] Deepak MCCABE URINE PROFILEon 3 Bilirubin Ql (U) Negative Normal NEGATIVE [facility] Comment on above: Performed By: #### B MP, LIVER, LIPA, SHERRI #### [facility] [address] [place] [address] Dr. Deepak August Clarity (U) CLEAR Normal CLEAR [facility] Comment on above: Performed By: #### B MP, LIVER, LIPA, SHERRI #### [facility] [address] [place] [address] Dr. Deepak August Color (U) YELLOW Normal YELLOW [facility] Comment on above: Performed By: #### B MP, LIVER, LIPA, SHERRI #### [facility] [address] [place] [address] Dr. Deepak HAMMERAHRobert A micrscopic examination will be performed if indicated. Normal [facility] Comment on above: Performed By: #### B MP, LIVER, LIPA, SHERRI #### [facility] [address] [place] [address] Dr. Deepak August Glucose Ql (U) Negative Normal NEGATIVE The [facility] Comment on above: Performed By: #### B MP, LIVER, LIPA, SHERRI #### [facility] [address] [place] [address] Dr. Deepak August Hemoglobin Ql (U) Negative Normal NEGATIVE [facility] Comment on above: Performed By: #### B MP, LIVER, LIPA, SHERRI #### [facility] [address] [place] [address] Dr. Deepak August Ketones Ql (U) 15 mg/dl Abnormal NEGATIVE [facility] Comment on above: Performed By: #### B MP, LIVER, LIPA, SHERRI #### [facility] [address] [place] [address] Dr. Deepak August LEUKOCYTES Negative Normal NEGATIVE [facility] Comment on above: Performed By: #### B MP, LIVER, LIPA, SHERRI #### [facility] [address] [address] [address] Deepak August Nitrite Ql (U) Negative Normal NEGATIVE [facility] Comment on above: Performed By: #### B MP, LIVER, LIPA, SHERRI #### [facility] [address] [address] [address] Deepak August pH (U) 6.0 [pH] Normal 5-9 [facility] Comment on above: Performed By: #### B MP, LIVER, LIPA, SHERRI #### [facility] [address] [address] [address] Deepak August SPEC GRAVITY 1.020 Normal 1.005-<=1.02 5 [facility] Comment on above: Performed By: #### B MP, LIVER, LIPA, SHERRI #### [facility] [address] [place] [address] Dr. Deepak August UA PROTEIN Negative Normal NEGATIVE/ TRACE [facility] Comment on above: Performed By: #### B MP, LIVER, LIPA, SHERRI #### [facility] [address] [address] [address] Deepak August UR MICRO IND NOT INDICATED Normal [facility] Comment on above: Performed By: #### B MP, LIVER, LIPA, SHERRI #### [facility] [address] [address] [address] Deepak August Urobilinogen Qn (U) 0.2 {Jerod'U}/dL Normal 0.2 - 1. 0 [facility] Comment on above: Performed By: #### B MP, LIVER, LIPA, SHERRI #### [facility] [address] [place] [address] Dr. Deepak August ETHANOL (BLD ALC)on 08-29-19 ALC NOTE NOTE: 80 mg/dl is th e legal limit for a blood alcohol level Normal [facility] Comment on above: Performed By: #### B MP, LIVER, LIPA, SHERRI #### [facility] [address] [place], [place] [id number] Dr. Deepak August Ethanol [Mass/Vol] mg/dL Normal [facility] Comment on above: Performed By: #### B MP, LIVER, LIPA, SHERRI #### [facility] [address] [place] [address] Dr. Deepak August LACTATE/LACTIC ACIDon 2022 Lactate [Moles/Vol] 1.4 mmol/L Normal 0.4-2.0 [facility] Comment on above: Performed By: #### B MP, LIVER, LIPA, SHERRI #### [facility] [address] [place] [address] Dr. Deepak August LIPASEon 08-28-2022 Lipase [Catalytic activity/Vol] 47.0 U/L Critically low 73.0-393.0 [facility] Comment on above: Performed By: #### B MP, LIVER, LIPA, SHERRI #### [facility] [address] [place] [address] Dr. Deepak August LIVER PROFILEon 08-28-2022 Albumin [Mass/Vol] 4.2 g/dL Normal 3.4-5.0 [facility] Comment on above: Performed By: #### B MP, LIVER, LIPA, SHERRI #### [facility] [address] [place] [address] Dr. Deepak August Albumin/Globulin [Mass ratio] 1.2 {ratio} Normal [facility] Comment on above: Performed By: #### B MP, LIVER, LIPA, SHERRI #### [facility] [address] [place] [address] Dr. Deepak August ALP [Catalytic activity/Vol] 67 U/L Normal 46-116 [facility] Comment on above: Performed By: #### B MP, LIVER, LIPA, SHERRI #### [facility] [address] [place] [address] Dr. Deepak August ALT [Catalytic activity/Vol] 21 U/L Normal 14-59 [facility] Comment on above: Performed By: #### B MP, LIVER, LIPA, SHERRI #### [facility] [address] [place] [address] Dr. Deepak August AST [Catalytic activity/Vol] 12 U/L Critically low 15-37 [facility] Comment on above: Performed By: #### B MP, LIVER, LIPA, SHERRI #### [facility] [address] [place] [address] Dr. Deepak August BILI, CONJUGATED 0.3 mg/dL Critically high 0.0-0.2 [facility] Comment on above: Performed By: #### B MP, LIVER, LIPA, SHERRI #### [facility] [address] [place] [address] Dr. Deepak August Bilirubin [Mass/Vol] 1.4 mg/dL Critically high 0.2-1.0 [facility] Comment on above: Performed By: #### B MP, LIVER, LIPA, SHERRI #### [facility] [address] [place] [address] Dr. Deepak August Globulin (S) [Mass/Vol] 3.6 g/dL Normal [facility] Comment on above: Performed By: #### B MP, LIVER, LIPA, SHERRI #### [facility] [address] [place] [address] Dr. Deepak August Protein [Mass/Vol] 7.8 g/dL Normal 6.4-8.2 [facility] Comment on above: Performed By: #### B MP, LIVER, LIPA, SHERRI #### [facility] [address] [place] [address] Dr. Deepak August URon 08-28-2022 , QUAL Negative Normal NEGATIVE [facility] Comment on above: Performed By: #### B MP, LIVER, LIPA, SHERRI #### [facility] [address] [place] [address] Dr. Deepak August PROF CHEM 8 (BAS METB)on Anion gap [Moles/Vol] 13.5 mmol/L Normal [facility] Comment on above: Performed By: #### B MP, LIVER, LIPA, SHERRI #### [facility] [address] [place] [address] Dr. Deepak August Calcium [Mass/Vol] 9.0 mg/dL Normal 8.5-10.1 [facility] Comment on above: Performed By: #### B MP, LIVER, LIPA, SHERRI #### [facility] [address] [address] [address] Deepak August Chloride [Moles/Vol] 104 mmol/L Normal 98-107 [facility] Comment on above: Performed By: #### B MP, LIVER, LIPA, SHERRI #### [facility] [address] [address] [address] Deepak August CO2 [Moles/Vol] 23.8 mmol/L Normal 21.0-32.0 [facility] Comment on above: Performed By: #### B MP, LIVER, LIPA, SHERRI #### [facility] [address] [address] [address] Deepak August Creatinine [Mass/Vol] 0.82 mg/dL Normal 0.55-1.02 [facility] Comment on above: Performed By: #### B MP, LIVER, LIPA, SHERRI #### [facility] [address] [address] [address] Deepak August EGFR-AF [facility] >60 Normal >=60 [facility] Comment on above: Performed By: #### B MP, LIVER, LIPA, SHERRI #### [facility] [address] [address] [address] Deepak August EGFR-NON AF [facility] >60 Normal >=60 [facility] Comment on above: Performed By: #### B MP, LIVER, LIPA, SHERRI #### [facility] [address] [address] [address] Deepak August Glucose [Mass/Vol] 119 mg/dL Critically high 74-106 [facility] Comment on above: Performed By: #### B MP, LIVER, LIPA, SHERRI #### [facility] [address] [address] [address] Deepak August Potassium [Moles/Vol] 3.3 mmol/L Critically low 3.5-5.1 [facility] Comment on above: Performed By: #### B MP, LIVER, LIPA, SHERRI #### [facility] [address] [address] [address] Deepak August Sodium [Moles/Vol] 138 mmol/L Normal 136-145 [facility] Comment on above: Performed By: #### B MP, LIVER, LIPA, SHERRI #### [facility] [address] [place] [address] Dr. Deepak August Urea nitrogen [Mass/Vol] 8.0 mg/dL Normal 7.0-18.0 [facility] Comment on above: Performed By: #### B MP, LIVER, LIPA, SHERRI #### [facility] [address] [place] [address] Dr. Deepak August Urea nitrogen/Creatinine [Mass ratio] 9.8 mg/mg Normal [facility] Comment on above: Performed By: #### B MP, LIVER, LIPA, SHERRI #### [facility] [address] [place] [address] Dr. Deepak August SALICYLATEon 08-28-2022 SALICYLATE <2.8 Normal <=19.9 [facility] Comment on above: Performed By: #### S ALYC, ACET #### [facility] [address] [place] [address] Dr. Deepak August XR CHEST 1 Von [...] by: STELLA MCDOWELL Date: 2022-08-28 10:31 Normal [facility] FERRITINon 06-10-2022 Ferritin [Mass/Vol] 56.0 ng/mL Normal 6.2-137.0 [facility] Comment on above: Performed By: #### B MP, LIVER, LIPA, SHERRI #### [facility] [address] [place] [address] Dr. Deepak August MAGNESIUMon 06-10-2022 Magnesium [Mass/Vol] 2.2 mg/dL Normal 1.8-2.4 [facility] Comment on above: Performed By: #### K , MG, PHOS #### [facility] [address] [place] [address] Dr. Deepak August PHOSPHORUSon 06-10-2022 Phosphate [Mass/Vol] 3.6 mg/dL Normal 2.6-4.7 [facility] Comment on above: Performed By: #### K , MG, PHOS #### [facility] [address] [place] [address] Dr. Deepak August POTASSIUMon 06-10-2022 Potassium [Moles/Vol] 3.8 mmol/L Normal 3.5-5.1 [facility] Comment on above: Performed By: #### K , MG, PHOS #### [facility] [address] [place] [address] Dr. Deepak August VIT B12 AND FOLATEon 023 Cobalamin (Vitamin B12) [Mass/Vol] 278.0 pg/mL Normal 193.0-986.0 [facility] Comment on above: Performed By: #### B MP, LIVER, LIPA, SHERRI #### [facility] [address] [place] [address] Dr. Deepak August FOLATE 7.40 ng/mL Critically low 8.60-58.90 [facility] Comment on above: Performed By: #### B MP, LIVER, LIPA, SHERRI #### [facility] [address] [place] [address] Dr. Deepak August INSULINon 02-13-2022 Insulin 16.9 uIU/mL Normal 2.6-24.9 [facility] Comment on above: Performed By: #### B MP, LIVER, LIPA, SHERRI #### [facility] [address] [place] [address] Dr. Deepak August CBC AUTO DIFFon 02-11-2022 BASO # 0.1 103/ul Normal 0.0-0.1 [facility] Comment on above: Performed By: #### B MP, LIVER, LIPA, SHERRI #### [facility] [address] [place] [address] Dr. Deepak August Basophils/100 WBC (Bld) 1.0 % Normal 0.2-2.0 [facility] Comment on above: Performed By: #### B MP, LIVER, LIPA, SHERRI #### [facility] [address] [place] [address] Dr. Deepak August EO # 0.4 103/ul Normal 0.0-0.7 [facility] Comment on above: Performed By: #### B MP, LIVER, LIPA, SHERRI #### [facility] [address] [place] [address] Dr. Deepak August Eosinophils/100 WBC (Bld) 5.4 % Normal 0.9-7.0 [facility] Comment on above: Performed By: #### B MP, LIVER, LIPA, SHERRI #### [facility] [address] [place] [address] Dr. Deepak August Erythrocyte distribution width (RBC) [Ratio] 13.0 % Normal 11.0-15.0 [facility] Comment on above: Performed By: #### B MP, LIVER, LIPA, SHERRI #### [facility] [address] [place] [address] Dr. Deepak August Hematocrit (Bld) [Volume fraction] 40.7 % Normal 36.0-48.0 [facility] Comment on above: Performed By: #### B MP, LIVER, LIPA, SHERRI #### [facility] [address] [place] [address] Dr. Deepak August Hemoglobin (Bld) [Mass/Vol] 13.4 g/dL Normal 12.0-16.0 [facility] Comment on above: Performed By: #### B MP, LIVER, LIPA, SHERRI #### [facility] [address] [place] [address] Dr. Deepak August IG # 0.02 10e3/ul Normal 0.00-0.03 [facility] Comment on above: Performed By: #### B MP, LIVER, LIPA, SHERRI #### [facility] [address] [place] [address] Dr. Deepak August IG % 0.3 % Normal 0.0-0.5 [facility] Comment on above: Performed By: #### B MP, LIVER, LIPA, SHERRI #### [facility] [address] [place] [address] Dr. Deepak August LYMPH # 1.6 103/ul Normal 1.2-3.8 [facility] Comment on above: Performed By: #### B MP, LIVER, LIPA, SHERRI #### [facility] [address] [place] [address] Dr. Deepak August Lymphocytes/100 WBC (Bld) 23.1 % Normal 20.5-60.0 [facility] Comment on above: Performed By: #### B MP, LIVER, LIPA, SHERRI #### [facility] [address] [place] [address] Dr. Deepak August MANUAL DIFF REQ NO Normal [facility] Comment on above: Performed By: #### B MP, LIVER, LIPA, SHERRI #### [facility] [address] [place] [address] Dr. Deepak August MCH (RBC) [Entitic mass] 28.6 pg Normal 26.7-34.0 [facility] Comment on above: Performed By: #### B MP, LIVER, LIPA, SHERRI #### [facility] [address] [place] [address] Dr. Deepak August MCHC (RBC) [Mass/Vol] 32.9 g/dL Normal 29.9-35.2 [facility] Comment on above: Performed By: #### B MP, LIVER, LIPA, SHERRI #### [facility] [address] [place] [address] Dr. Deepak August MCV (RBC) [Entitic vol] 86.8 fL Normal 81.0-99.0 [facility] Comment on above: Performed By: #### B MP, LIVER, LIPA, SHERRI #### [facility] [address] [place] [address] Dr. Deepak August MONO # 0.5 103/ul Normal 0.3-0.8 [facility] Comment on above: Performed By: #### B MP, LIVER, LIPA, SHERRI #### [facility] [address] [place] [address] Dr. Deepak August Monocytes/100 WBC (Bld) 6.9 % Normal 1.7-12.0 [facility] Comment on above: Performed By: #### B MP, LIVER, LIPA, SHERRI #### [facility] [address] [place] [address] Dr. Deepak August NEUT # 4.3 103/ul Normal 1.4-6.5 [facility] Comment on above: Performed By: #### B MP, LIVER, LIPA, SHERRI #### [facility] [address] [place] [address] Dr. Deepak August Neutrophils/100 WBC (Bld) 63.3 % Normal 43.0-75.0 [facility] Comment on above: Performed By: #### B MP, LIVER, LIPA, SHERRI #### [facility] [address] [place] [address] Dr. Deepak August Platelet mean volume (Bld) [Entitic vol] 9.7 fL Normal 9.5-13.5 [facility] Comment on above: Performed By: #### B MP, LIVER, LIPA, SHERRI #### [facility] [address] [place] [address] Dr. Deepak August PLT 463 103/ul Critically high 150-450 [facility] Comment on above: Performed By: #### B MP, LIVER, LIPA, SHERRI #### [facility] [address] [place] [address] Dr. Deepak August RBC 4.69 106/ul Normal 4.20-5.40 [facility] Comment on above: Performed By: #### B MP, LIVER, LIPA, SHERRI #### [facility] [address] [place] [address] Dr. Deepak August WBC 6.8 103/ul Normal 4.0-11.0 [facility] Comment on above: Performed By: #### B MP, LIVER, LIPA, SHERRI #### [facility] [address] [place] [address] Dr. Deepak August FREE THYROXINE INDEX T7on FTI 2.33 Normal 1.30-4.50 [facility] Comment on above: Performed By: #### B MP, LIVER, LIPA, SHERRI #### [facility] [address] [place] [address] Dr. Deepak August T3U 31.0 % Normal 30.0-39.0 [facility] Comment on above: Performed By: #### B MP, LIVER, LIPA, SHERRI #### [facility] [address] [place] [address] Dr. Deepak August T4 [Mass/Vol] 7.50 ug/dL Normal 4.80-13.90 [facility] Comment on above: Performed By: #### B MP, LIVER, LIPA, SHERRI #### [facility] [address] [place] [address] Dr. Deepak August GLYCOHEMOGLOBIN A1Con 2021 ADA RECOMMENDATION SEE BELOW Normal [facility] Comment on above: Result Comment: ADA RECOMMENDED LIMIT 4.0 - 6.0 ADA THERAPEUTIC TARGET < 7.0 ACTION SUGGESTED > 7.0 Performed By: #### A 1C #### [facility] [address] [place] [address] Dr. Deepak August Glucose [Mass/Vol] 114 mg/dL Normal [facility] Comment on above: Performed By: #### A 1C #### [facility] [address] [place] [address] Dr. Deepak August HbA1c (Bld) [Mass fraction] 5.6 % Normal 4.5-6.2 [facility] Comment on above: Performed By: #### A 1C #### [facility] [address] [place] [address] Dr. Deepak August IRONon 02-11-2022 Iron [Mass/Vol] 97.0 ug/dL Normal 50.0-170.0 [facility] Comment on above: Performed By: #### B MP, LIVER, LIPA, SHERRI #### [facility] [address] [address] [address] Deepak August LIPID PROFILEon 02-11-2022 CHOL-HDL RATIO NORM SEE BELOW Normal [facility] Comment on above: Result Comment: 3.3 - 4.4 LOW RISK 4.4 - 7.1 AVERAGE RISK 7.1 - 11.0 MODERATE RISK >11.0 HIGH RISK Performed By: #### B MP, LIVER, LIPA, SHERRI #### [facility] [address] [address] [address] Deepak August Cholesterol [Mass/Vol] 172 mg/dL Normal <=200 [facility] Comment on above: Performed By: #### B MP, LIVER, LIPA, SHERRI #### [facility] [address] [address] [address] Deepak August Cholesterol in HDL [Mass/Vol] 64 mg/dL Critically high 40-60 [facility] Comment on above: Performed By: #### B MP, LIVER, LIPA, SEHRRI #### [facility] [address] [address] [address] Deepak August Cholesterol in LDL [Mass/Vol] 98.0 mg/dL Normal [facility] Comment on above: Performed By: #### B MP, LIVER, LIPA, SHERRI #### [facility] [address] [address] [address] Deepak August Cholesterol.total/Chol esterol in HDL [Mass ratio] 2.7 {ratio} Normal [facility] Comment on above: Performed By: #### B MP, LIVER, LIPA, SHERRI #### [facility] [address] [address] [address] Deepak August HDL NORMAL > or = 60 mg/dl - LO W CARDIOVASCULAR RISK <40 mg/dl - HIGH CARDIOVASCULAR RISK Normal [facility] Comment on above: Performed By: #### B MP, LIVER, LIPA, SHERRI #### [facility] [address] [place] [address] Dr. Deepak August LDL CALC NORMAL SEE BELOW Normal [facility] Comment on above: Result Comment: <100 mg/dl OPTIMAL 100 - 129 mg/dl NEAR OR ABOVE OPTIMAL 130 - 159 mg/dl BORDERLINE HIGH 160 - 189 mg/dl HIGH >190 mg/dl VERY HIGH Performed By: #### B MP, LIVER, LIPA, SHERRI #### [facility] [address] [address] [address] Deepak August Triglyceride [Mass/Vol] 50 mg/dL Normal <=150 [facility] Comment on above: Performed By: #### B MP, LIVER, LIPA, SHERRI #### [facility] [address] [address] [address] Deepak August VLDL CALC 10.0 mg/dL Normal [facility] Comment on above: Performed By: #### B MP, LIVER, LIPA, SHERRI #### [facility] [address] [place] [address] Dr. Deepak August PROF 14(COMP METB)on 022 Albumin [Mass/Vol] 3.9 g/dL Normal 3.4-5.0 [facility] Comment on above: Performed By: #### B MP, LIVER, LIPA, SHERRI #### [facility] [address] [address] [address] Deepak August Albumin/Globulin [Mass ratio] 1.3 {ratio} Normal [facility] Comment on above: Performed By: #### B MP, LIVER, LIPA, SHERRI #### [facility] [address] [address] [address] Deepak August ALP [Catalytic activity/Vol] 67 U/L Normal 46-116 [facility] Comment on above: Performed By: #### B MP, LIVER, LIPA, SHERRI #### [facility] [address] [address] [address] Deepak August ALT [Catalytic activity/Vol] 39 U/L Normal 14-59 [facility] Comment on above: Performed By: #### B MP, LIVER, LIPA, SHERRI #### [facility] [address] [address] [address] Deepak August Anion gap [Moles/Vol] 9.4 mmol/L Normal [facility] Comment on above: Performed By: #### B MP, LIVER, LIPA, SHERRI #### [facility] [address] [address] [address] Deepak August AST [Catalytic activity/Vol] 16 U/L Normal 15-37 [facility] Comment on above: Performed By: #### B MP, LIVER, LIPA, SHERRI #### [facility] [address] [place] [address] Dr. Deepak August Bilirubin [Mass/Vol] 0.6 mg/dL Normal 0.2-1.0 [facility] Comment on above: Performed By: #### B MP, LIVER, LIPA, SHERRI #### [facility] [address] [place] [address] Dr. eDepak August Calcium [Mass/Vol] 8.6 mg/dL Normal 8.5-10.1 [facility] Comment on above: Performed By: #### B MP, LIVER, LIPA, SHERRI #### [facility] [address] [place] [address] Dr. Deepak August Chloride [Moles/Vol] 105 mmol/L Normal 98-107 [facility] Comment on above: Performed By: #### B MP, LIVER, LIPA, SHERRI #### [facility] [address] [place] [address] Dr. Depeak August CO2 [Moles/Vol] 27.7 mmol/L Normal 21.0-32.0 [facility] Comment on above: Performed By: #### B MP, LIVER, LIPA, SHERRI #### [facility] [address] [place] [address] Dr. Deepak August Creatinine [Mass/Vol] 0.68 mg/dL Normal 0.55-1.02 [facility] Comment on above: Performed By: #### B MP, LIVER, LIPA, SHERRI #### [facility] [address] [place] [address] Dr. Deepak August EGFR-AF [facility] >60 Normal >=60 [facility] Comment on above: Performed By: #### B MP, LIVER, LIPA, SHERRI #### [facility] [address] [address] [address] Deepak August EGFR-NON AF [facility] >60 Normal >=60 [facility] Comment on above: Performed By: #### B MP, LIVER, LIPA, SHERRI #### [facility] [address] [address] [address] Deepak August Globulin (S) [Mass/Vol] 3.1 g/dL Normal [facility] Comment on above: Performed By: #### B MP, LIVER, LIPA, SHERRI #### [facility] [address] [address] [address] Deepak August Glucose [Mass/Vol] 115 mg/dL Critically high 74-106 [facility] Comment on above: Performed By: #### B MP, LIVER, LIPA, SHERRI #### [facility] [address] [place] [address] Dr. Deepak August Potassium [Moles/Vol] 4.1 mmol/L Normal 3.5-5.1 [facility] Comment on above: Performed By: #### B MP, LIVER, LIPA, SHERRI #### [facility] [address] [place] [address] Dr. Deepak August Protein [Mass/Vol] 7.0 g/dL Normal 6.4-8.2 [facility] Comment on above: Performed By: #### B MP, LIVER, LIPA, SHERRI #### [facility] [address] [address] [address] Deepak August Sodium [Moles/Vol] 138 mmol/L Normal 136-145 [facility] Comment on above: Performed By: #### B MP, LIVER, LIPA, SHERRI #### [facility] [address] [place] [address] Dr. Deepak August Urea nitrogen [Mass/Vol] 6.0 mg/dL Critically low 7.0-18.0 [facility] Comment on above: Performed By: #### B MP, LIVER, LIPA, SHERRI #### [facility] [address] [address] [address] Deepak August Urea nitrogen/Creatinine [Mass ratio] 8.8 mg/mg Normal [facility] Comment on above: Performed By: #### B MP, LIVER, LIPA, SHERRI #### [facility] [address] [place] [address] Dr. Deepak August TSHon 02-11-2022 TSH 0.860 uIU/mL Normal 0.358-3.740 [facility] Comment on above: Performed By: #### B MP, LIVER, LIPA, SHERRI #### [facility] [address] [address] [address] Deepak August MG MAMM SCREEN 3D FAISAL CADon 02-01-2022 MG MAMM SCREEN 3D FAISAL CAD Patient: RAMY MARTINEZ Exam Date: 02/01/2022 : 1980 Gender:F Ordering : DR RENA SMITH . Admission #: [id number] Family : Order #: [id number] CLICK HERE TO VIEW EXAM RADIOLOGY REPORT [...] uterine cancer at age 40. LOCATION: [facility] BREAST COMPOSITION: Heterogeneously dense,which may obscure small [...] Vasquez MD on 02/01/2022 at 08:53 Normal [facility] PAP ACOG PANEL 2: 30 to 65on 01-31-2022 . . Normal [facility] Comment on above: Result Comment: Perf ormed at: WB Performed By: #### B MP, LIVER, LIPA, SHERRI #### [facility] [address] [address] [address] Deepak August Age Gdln ACOG Testing 30-65 Normal [facility] Comment on above: Performed By: #### B MP, LIVER, LIPA, SHERRI #### [facility] [address] [address] [address] Deepak August DIAGNOSIS: Comment Normal [facility] Comment on above: Result Comment: NEGA TIVE FOR INTRAEPITHELIAL LESION OR MALIGNANCY. FUNGAL ORGANISMS MORPHOLOGICALLY CONSISTENT WITH JAY SPECIES ARE PRESENT. CELLULAR CHANGES ASSOCIATED WITH INFLAMMATION ARE PRESENT. Performed at: WB Performed By: #### B MP, LIVER, LIPA, SHERRI #### [facility] [address] [place] [address] Dr. Deepak August HPV Aptima Negative Normal Negative [facility] Comment on above: Result Comment: This nucleic acid amplification test detects fourteen high-risk HPV types (16,18,31,33,35,39,45,51,52,56,58,59,66,68) without differentiation. Performed at: =G Performed By: #### B MP, LIVER, LIPA, SHERRI #### [facility] [address] [place] [address] Dr. Deepak August Methodology: Comment Normal [facility] Comment on above: Result Comment: This liquid based ThinPrep(R) pap test was screened with the use of an image guided system. Performed at: WB Performed By: #### B MP, LIVER, LIPA, SHERRI #### [facility] [address] [place] [address] Dr. Deepak August Note: Comment Normal [facility] Comment on above: Result Comment: The Pap [...] #### B MP, LIVER, LIPA, SHERRI #### [facility] [address] [place] [address] Dr. Deepak August Performed by: Comment Normal [facility] Comment on above: Result Comment: Ness Ortiz, Prepress Operator (ASCP) Performed at: WB Performed By: #### B MP, LIVER, LIPA, SHERRI #### [facility] [address] [address] [address] Deepak August Specimen adequacy: Comment Normal [facility] Comment on above: Result Comment: Sati sfactory for evaluation. No endocervical component is identified. Performed at: WB Performed By: #### B MP, LIVER, LIPA, SHERRI #### [facility] [address] [address] [address] Deepak August PROF CHEM 8 (BAS METB)on Anion gap [Moles/Vol] 12.9 mmol/L Normal [facility] Comment on above: Performed By: #### B MP, LIVER, LIPA, SHERRI #### [facility] [address] [address] [address] Deepak August Calcium [Mass/Vol] 8.7 mg/dL Normal 8.5-10.1 [facility] Comment on above: Performed By: #### B MP, LIVER, LIPA, SHERRI #### [facility] [address] [address] [address] Deepak August Chloride [Moles/Vol] 105 mmol/L Normal 98-107 [facility] Comment on above: Performed By: #### B MP, LIVER, LIPA, SEHRRI #### [facility] [address] [address] [address] Deepak August CO2 [Moles/Vol] 25.3 mmol/L Normal 21.0-32.0 [facility] Comment on above: Performed By: #### B MP, LIVER, LIPA, SHERRI #### [facility] [address] [address] [address] Deepak August Creatinine [Mass/Vol] 0.69 mg/dL Normal 0.55-1.02 [facility] Comment on above: Performed By: #### B MP, LIVER, LIPA, SHERRI #### [facility] [address] [address] [address] Deepak August EGFR-AF [facility] >60 Normal >=60 [facility] Comment on above: Performed By: #### B MP, LIVER, LIPA, SHERRI #### [facility] [address] [address] [address] Deepak August EGFR-NON AF [facility] >60 Normal >=60 [facility] Comment on above: Performed By: #### B MP, LIVER, LIPA, SHERRI #### [facility] [address] [address] [address] Deepak August Glucose [Mass/Vol] 114 mg/dL Critically high 74-106 [facility] Comment on above: Performed By: #### B MP, LIVER, LIPA, SHERRI #### [facility] [address] [address] [address] Deepak August Potassium [Moles/Vol] 4.2 mmol/L Normal 3.5-5.1 [facility] Comment on above: Performed By: #### B MP, LIVER, LIPA, SHERRI #### [facility] [address] [address] [address] Deepak August Sodium [Moles/Vol] 139 mmol/L Normal 136-145 [facility] Comment on above: Performed By: #### B MP, LIVER, LIPA, SHERRI #### [facility] [address] [address] [address] Deepak August Urea nitrogen [Mass/Vol] 6.0 mg/dL Critically low 7.0-18.0 [facility] Comment on above: Performed By: #### B MP, LIVER, LIPA, SHERRI #### [facility] [address] [address] [address] Deepak August Urea nitrogen/Creatinine [Mass ratio] 8.7 mg/mg Normal [facility] Comment on above: Performed By: #### B MP, LIVER, LIPA, SHERRI #### [facility] [address] [address] [address] Deepak August *HCG*POCT*DEVICEon 8 HCG.beta subunit ( test) Ql (U) Negative Normal Negative [facility] *POC GLUCOSE BATTERYon 09-03 *POC SAMPLE TYPE Capillary Blood Normal [facility] Glucose mass conc 106 mg/dL High 70-99 [facility] Comment on above: Result Comment: No B JALYN per RN: PATIENT TYPE Surgical Pathologyon 018 Surgical Pathology Surgical Pathology ReportPatient Name: RAMY MARTINEZ Rec #: [id number] Physician: LUIS GARCÍA--- Clinical History ---Preop Diagnosis: [...] and endoscopic findings.Select slides reviewed by Dr. Francisac Chadwick. The patient's history of ulcerative colitis is noted. All biopsies arenegative for dysplasia, viral cytopathic effect, or well-formed granuloma. All controls show appropriate reactivity.All immunohistochemistry, in situ hybridization, and histochemical testswere developed by and are performed at the [facility], [address] [place] [address]. All tests reported here, except those addressing HER2 overexpressionas a predictive marker, have not been cleared by or approved by the [place] Foodand Drug Administration (FDA). The laboratory is regulated under CLIA asqualified to perform high-complexity testing. The tests are used forclinical purposes. They should not be regarded as investigational or forresearch. [id number]:09/05/2017 *Electronically Signed ByJunior Hitchcock MD, PhD09/05/2017 17:39:19Professional Interpretation performed at location: [address] [place] [address]---SPECIMEN(S) RECEIVED:---SBXA: Colon, BXB: Colon, BXC: Colon, BXD: [...] TE 1 Lab Use Only: Job ID [id number] description by: Beata De Guzman [facility] Comment on above: Performed By: #### S URGP ####[address] [place] [address] [place] [address] C Reactive Proteinon 018 C reactive protein (CRP) 3.70 mg/L Normal <10.00 [facility] Comment on above: Performed By: #### C BCDFC, CMPN, CRP ####[address] [place] [address] [place] [address] CBC,PLATELET,DIFFERENTIAL - CCLon 06-11-2017 Abs Baso 0.10 K/uL High 0.01-0.08 [facility] Comment on above: Performed By: #### C BCDFC, CMPN, CRP ####[facility] [place] [address], [place] [address]HvtcreMemorial Health System[address] [place] [address] Abs Eos 1.05 K/uL High 0.04-0.36 [facility] Comment on above: Performed By: #### C BCDFC, CMPN, CRP ####[facility] [place] [address], [place] [address]InngzyMemorial Health System[address] [place] [address] Abs [place] 0.72 K/uL Normal 0.24-0.86 [facility] Comment on above: Performed By: #### C BCDFC, CMPN, CRP ####[facility] [place] [address] [place], [place] [id number] [place] [address] Basophils/100 WBC Auto (Bld) 1.0 % Normal [facility] Comment on above: Performed By: #### C BCDFC, CMPN, CRP ####[facility] [place] [address]VegbaeMemorial Health System[address] [place] [address]65 DIFFERENTIAL TYPE Electronic Differential Normal [facility] Comment on above: Performed By: #### C BCDFC, CMPN, CRP ####[facility] [place] [address]InchxcMemorial Health System[address] [place] [address] Eosinophils/100 leukocytes 10.2 % Normal [facility] Comment on above: Performed By: #### C BCDFC, CMPN, CRP ####[facility] [place] [address]UotwwuMemorial Health System[address] [place] [address] Erythrocytes (RBC) 4.80 10*6/uL Normal 3.93-5.22 [facility] Comment on above: Performed By: #### C BCDFC, CMPN, CRP ####[facility] [place] [address], [place] [address] [place], [place] [id number] [place] [address] Erythrocytes (RBC) 13.1 % Normal 11.7-14.4 [facility] Comment on above: Performed By: #### C BCDFC, CMPN, CRP ####[facility] [place] [address], [place] [address] [place], [place] [id number] [place] [address] Hematocrit (HCT) 41.8 % Normal 34.1-44.9 [facility] Comment on above: Performed By: #### C BCDFC, CMPN, CRP ####[facility] [place] [address], [place] [address] [place], [place] [id number] [place] [address]00 Hemoglobin mass conc (Bld) 28.5 pg Normal 25.6-32.2 [facility] Comment on above: Performed By: #### C BCDFC, CMPN, CRP ####[facility] [place] [address] [place], [place] [id number] [place] [address]999 Hemoglobin mass conc (Bld) 32.8 g/dL Normal 32.2-35.5 [facility] Comment on above: Performed By: #### C BCDFC, CMPN, CRP ####[facility] [place] [address], [place] [address]xi[address] [place], [place] [id number] [place] [address]31 Hemoglobin mass conc (Bld) 13.7 g/dL Normal 11.2-15.7 [facility] Comment on above: Performed By: #### C BCDFC, CMPN, CRP ####[facility] [place] [address] [address] [place] [address] IMMATURE GRANS % 0.3 % Normal [facility] Comment on above: Performed By: #### C BCDFC, CMPN, CRP ####[facility] [place] [address] [place], [place] [id number] [place], [place] [address] IMMATURE GRANS ABSOLUTE 0.03 K/uL Normal 0.00-0.03 [facility] Comment on above: Performed By: #### C BCDFC, CMPN, CRP ####[facility] [place], [place] [address] [place] [address]007 Lymphocytes 2.73 10*3/uL Normal 1.18-3.74 [facility] Comment on above: Performed By: #### C BCDFC, CMPN, CRP ####[facility] [place], [place] [address] [place] [address]697 Lymphocytes/100 leukocytes 26.5 % Normal [facility] Comment on above: Performed By: #### C BCDFC, CMPN, CRP ####[facility] [place], [place] [id number] [place] [address]883 MCV 87.1 fL Normal 79.4-94.8 [facility] Comment on above: Performed By: #### C BCDFC, CMPN, CRP ####[facility] [place], [place] [id number] [place] [address]30 Monocytes/100 leukocytes 7.0 % Normal [facility] Comment on above: Performed By: #### C BCDFC, CMPN, CRP ####[facility] [place] [address] 59906 NEUTROPHIL SEGMENTED 55.0 % Normal [facility] Comment on above: Performed By: #### C BCDFC, CMPN, CRP ####[facility] [place], [place] [address] [place], [place] [id number] [place] [address] 62871 Nucleated erythrocytes 0.0 /100 WBC Normal 0.0-0.2 [facility] Comment on above: Performed By: #### C BCDFC, CMPN, CRP ####[facility] [place], [place] [id number] [place] [address] 57910 Platelet mean volume (PMV) 11.1 fL Normal 9.4-12.3 [facility] Comment on above: Performed By: #### C BCDFC, CMPN, CRP ####[facility] [place], [place] [address] [place] [address] 26993 Platelets 433 10*3/uL High 182-369 [facility] Comment on above: Performed By: #### C BCDFC, CMPN, CRP ####[facility] [place], [place] [id number] [place] [address] 84197 SEGS + Bands,Absolute 5.66 K/uL Normal 1.56-6.13 [facility] Comment on above: Performed By: #### C BCDFC, CMPN, CRP ####[facility] [place], [place] [address] [place] [address] 17444 WBC (Leukocytes) 10.29 10*3/uL High 3.98-10.04 [facility] Comment on above: Performed By: #### C BCDFC, CMPN, CRP ####[facility] [address] [place] [address] 418[address]NmjxhtMemorial Health System[address] [place] [address]3635 Comprehensive Metabolic Pane [place] 06-11-2017 Alanine aminotransferase (ALT) 15 U/L Normal 9-48 [facility] Comment on above: Performed By: #### C BCDFC, CMPN, CRP ####[facility] [place] [address] [place] [id number] [place] [address] 05233 Albumin 4.6 g/dL Normal 3.5-5.0 [facility] Comment on above: Performed By: #### C BCDFC, CMPN, CRP ####[facility] [place] [address] [place] [address] [place] [address] 56843 Alkaline phosphatase (ALP) 77 U/L Normal 32-126 [facility] Comment on above: Performed By: #### C BCDFC, CMPN, CRP ####[facility] [place], [place] [address] [place] [address] 19243 Anion gap 12 mmol/L Normal 7-17 [facility] Comment on above: Performed By: #### C BCDFC, CMPN, CRP ####[facility] [place] [address] [place] [id number] [place] [address] 48630 Aspartate aminotransferase (AST) 14 U/L Normal 14-40 [facility] Comment on above: Performed By: #### C BCDFC, CMPN, CRP ####[facility] [place] [address] [place], [place] [address] [place] [address] 51619 Bilirubin (total) 0.4 mg/dL Normal <1.5 [facility] Comment on above: Performed By: #### C BCDFC, CMPN, CRP ####[facility] [place] [address]DazslxMemorial Health System[address] [place] [address] 11096 BUN/Creatinine Ratio 13 mg/mg Normal [facility] Comment on above: Performed By: #### C BCDFC, CMPN, CRP ####[facility] [place] [address] [place] [address] [place] [address] 77493 Calcium 9.5 mg/dL Normal 8.6-10.5 [facility] Comment on above: Performed By: #### C BCDFC, CMPN, CRP ####[facility] [place], [place] [address] [place], [place] [address] [place] [address] 75628 Chloride 104 mmol/L Normal 98-108 [facility] Comment on above: Performed By: #### C BCDFC, CMPN, CRP ####[facility] [place], [place] [address] [place] [address] 01243 CO2 27 mmol/L Normal 22-30 [facility] Comment on above: Performed By: #### C BCDFC, CMPN, CRP ####[facility] [place], [place] [address] [place] [address] 24692 Creatinine 0.68 mg/dL Normal 0.50-1.20 [facility] Comment on above: Performed By: #### C BCDFC, CMPN, CRP ####[facility] [place] [address] [place], [place] [address] [place] [address] 57847 eGFR (non-black) mL/min/{1.73_m2} Normal >60 [facility] Comment on above: Performed By: #### C BCDFC, CMPN, CRP ####[facility] [place] [address] 19613TxbnwlMemorial Health System[address] [place] [address] 03070 Glucose mass conc 90 mg/dL Normal 70-99 [facility] Comment on above: Performed By: #### C BCDFC, CMPN, CRP ####[facility] [place] [address] 57362HlytueMemorial Health System[address] [place] [address] 72252 Osmolality 288 mOsm/kg Normal 278-305 [facility] Comment on above: Performed By: #### C BCDFC, CMPN, CRP ####[facility] [place] [address] 31337HeffgfMemorial Health System[address] [place] [address] 53662 Potassium molar conc 3.7 mmol/L Normal 3.5-5.0 [facility] Comment on above: Performed By: #### C BCDFC, CMPN, CRP ####[facility] [place] [address] [place] [address] [place] [address] 18727 Protein 7.6 g/dL Normal 6.4-8.3 [facility] Comment on above: Performed By: #### C BCDFC, CMPN, CRP ####[facility] [place] [address] 37881KqxsuyMemorial Health System[address] [place] [address] 65288 Sodium 139 mmol/L Normal 133-143 [facility] Comment on above: Performed By: #### C BCDFC, CMPN, CRP ####[facility] [place] [address] 334[address]AvbjgiMemorial Health System[address] [place] [address] 06951 Urea nitrogen 9 mg/dL Normal 7-22 [facility] Comment on above: Performed By: #### C BCDFC, CMPN, CRP ####[facility] [place], [place] [address] [place], [place] [address] Vital Signs Date Time Vital Sign Value Performing Clinician Facility 09-24-2024 08:18-0400 Blood Pressure Location Torres Sarmini [facility] 09-24-2024 08:18-0400 Diastolic blood pressure 86 mm[Hg] Torres Sarmini [facility] 09-24-2024 08:18-0400 Heart rate 73 /min Torres Sarmini [facility] 09-24-2024 08:18-0400 Systolic blood pressure 125 mm[Hg] Torres Sarmini [facility] 01-22-2024 15:40-0400 Body height 165.1 cm Denisse Chinag MD Work Phone: [facility] 01-22-2024 15:40-0400 Body mass index (BMI) [Ratio] 29.79 kg/m2 Denisse Chiang MD Work Phone: [facility] 01-22-2024 15:40-0400 Body weight 81.19 kg Denisse Chiang MD Work Phone: [facility] 01-22-2024 15:40-0400 Diastolic blood pressure 81 mm[Hg] Denisse Chiang MD Work Phone: [facility] 01-22-2024 15:40-0400 Heart rate 76 /min Denisse Chiang MD Work Phone: [facility] 01-22-2024 15:40-0400 Systolic blood pressure 117 mm[Hg] Denisse Chiang MD Work Phone: [facility] 01-03-2024 15:07-0400 Body mass index (BMI) [Ratio] 29.64 kg/m2 Sherri LARKIN Work Phone: [facility] 01-03-2024 15:07-0400 Body weight 80.8 kg Sherri Reynolds PA Work Phone: [facility] 01-03-2024 15:07-0400 Diastolic blood pressure 76 mm[Hg] Sherri Reynolds PA Work Phone: [facility] 01-03-2024 15:07-0400 Systolic blood pressure 110 mm[Hg] Sherri Reynolds PA Work Phone: [facility] 12-24-2023 20:30-0400 Diastolic blood pressure 63 mm[Hg] Denisse Chiang MD Work Phone: [facility] 12-24-2023 20:30-0400 Heart rate 84 /min Denisse Chiang MD Work Phone: [facility] 12-24-2023 20:30-0400 Respiratory rate 17 /min Denisse Chiang MD Work Phone: [facility] 12-24-2023 20:30-0400 SaO2% (BldA) [Mass fraction] 99 % Denisse Chiang MD Work Phone: [facility] 12-24-2023 20:30-0400 Systolic blood pressure 110 mm[Hg] Denisse Chiang MD Work Phone: [facility] 12-24-2023 20:00-0400 Body temperature 97.2 [degF] Denisse Chiang MD Work Phone: [facility] 12-24-2023 12:43-0400 Body height 165.1 cm Denisse Chiang MD Work Phone: [facility] 12-24-2023 12:43-0400 Body mass index (BMI) [Ratio] 28.96 kg/m2 Denisse Chiang MD Work Phone: [facility] 12-24-2023 12:43-0400 Body weight 78.93 kg Denisse Chiang MD Work Phone: [facility] 10-09-2023 13:06-0400 Body height 165.1 cm Denisse Chiang MD Work Phone: [facility] 10-09-2023 13:06-0400 Body mass index (BMI) [Ratio] 29.79 kg/m2 Denisse Chiang MD Work Phone: [facility] 10-09-2023 13:06-0400 Body weight 81.19 kg Denisse Chiang MD Work Phone: [facility] 10-09-2023 13:06-0400 Diastolic blood pressure 82 mm[Hg] Denisse Chiang MD Work Phone: [facility] 10-09-2023 13:06-0400 Heart rate 84 /min Denisse Chiang MD Work Phone: [facility] 10-09-2023 13:06-0400 Systolic blood pressure 126 mm[Hg] Denisse Chiang MD Work Phone: [facility] 09-25-2023 14:27-0400 Blood Pressure Location Torres Sarmini [facility] 09-25-2023 14:27-0400 Diastolic blood pressure 80 mm[Hg] Torres Sarmini [facility] 09-25-2023 14:27-0400 Heart rate 70 /min Torres Sarmini [facility] 09-25-2023 14:27-0400 Respiratory rate 18 /min Torres Sarmini [facility] 09-25-2023 14:27-0400 Systolic blood pressure 116 mm[Hg] Torres Sarmini [facility] 09-10-2023 14:15-0400 Diastolic blood pressure 88 mm[Hg] Torres Sarmini [facility] 09-10-2023 14:15-0400 Heart rate 78 /min Torres Sarmini [facility] 09-10-2023 14:15-0400 Respiratory rate 17 /min Torres Sarmini [facility] 09-10-2023 14:15-0400 SaO2% (BldA) [Mass fraction] 100 % Torres Sarmini [facility] 09-10-2023 14:15-0400 Systolic blood pressure 137 mm[Hg] Torres Sarmini [facility] 09-10-2023 14:05-0400 Diastolic blood pressure 89 mm[Hg] Torres Sarmini [facility] 09-10-2023 14:05-0400 Heart rate 72 /min Torres Sarmini [facility] 09-10-2023 14:05-0400 Respiratory rate 16 /min Torres Sarmini [facility] 09-10-2023 14:05-0400 SaO2% (BldA) [Mass fraction] 99 % Torres Sarmini [facility] 09-10-2023 14:05-0400 Systolic blood pressure 147 mm[Hg] Torres Sarmini [facility] 09-10-2023 14:00-0400 Heart rate 75 /min Torres Sarmini [facility] 09-10-2023 14:00-0400 Systolic blood pressure 142 mm[Hg] Torres Sarmini [facility] 09-10-2023 13:49-0400 Body temperature 97.7 [degF] Torres Sarmini [facility] 09-10-2023 13:45-0400 Respiratory rate 14 /min Torres Sarmini [facility] 09-10-2023 13:40-0400 Respiratory rate 14 /min Torres Sarmini [facility] 09-10-2023 13:35-0400 Respiratory rate 13 /min Torres Sarmini [facility] 09-10-2023 11:40-0400 Blood Pressure Location Torres Sarmini [facility] 09-10-2023 11:40-0400 Body temperature 97.52 [degF] Torres Sarmini [facility] 07-11-2023 07:38-0500 Blood Pressure Location Torres Sarmini [facility] 07-11-2023 07:38-0500 Diastolic blood pressure 88 mm[Hg] Torres Sarmini [facility] 07-11-2023 07:38-0500 Heart rate 80 /min Torres Sarmini [facility] 07-11-2023 07:38-0500 Respiratory rate 18 /min Torres Sarmini [facility] 07-11-2023 07:38-0500 Systolic blood pressure 128 mm[Hg] Torres Sarmini [facility] 08-31-2022 17:05-0400 Body temperature 98.4 [degF] MD Yaquelin Perez Work Phone: [facility] 08-31-2022 17:05-0400 Diastolic blood pressure 86 mm[Hg] MD Yaquelin Perez Work Phone: [facility] 08-31-2022 17:05-0400 Heart rate 72 /min MD Yaquelin Perez Work Phone: [facility] 08-31-2022 17:05-0400 Respiratory rate 18 /min MD Yaquelin Perez Work Phone: [facility] 08-31-2022 17:05-0400 SaO2% (BldA) [Mass fraction] 100 % MD Yaquelin Perez Work Phone: [facility] 08-31-2022 17:05-0400 Systolic blood pressure 129 mm[Hg] MD Yaquelin Perez Work Phone: [facility] 08-29-2022 14:54-0400 Body height 166.37 cm MD Yaquelin Perez Work Phone: [facility] 08-28-2022 17:33-0400 Body weight 96.61 kg MD Yaquelin Perez Work Phone: [facility] 08-30-2021 10:00-0400 Body height 165.1 cm Reddy Dewitt Other [employer] Other 08-30-2021 10:00-0400 Body mass index (BMI) [Ratio] 36.61 kg/m2 Reddy Dewitt Other [employer] Other 08-30-2021 10:00-0400 Body weight 99.79 kg Reddy Dewitt Other [employer] Other Encounters Encounter Date Encounter Type Care Provider Facility Start: 11-04-2025 ambulatory Torres Talal Sarmini Facility:[facility] Start: 11-05-2024 End: 11-05-2024 ambulatory Torres Talal Sarmini [facility] Start: 11-05-2024 End: 11-05-2024 Patient encounter procedure Torres Talal Sarmini [facility] Start: 10-20-2024 End: 10-21-2024 ambulatory [facility] Start: 10-07-2024 End: 10-07-2024 Lab Drop off Torres Talal Sarmini [facility] Start: 10-07-2024 End: 10-07-2024 ambulatory Torres Talal Sarmini Facility:[facility] Start: 10-07-2024 End: 10-07-2024 ambulatory Torres Talal Sarmini Facility::[id number] Start: 09-24-2024 End: 09-24-2024 ambulatory Torres Talal Sarmini Facility:[facility] Start: 09-24-2024 End: 09-24-2024 Patient encounter procedure Torres Talal Sarmini [facility] Start: 01-22-2024 End: 01-22-2024 Postop follow up visit related to original px Denisse Chiang MD Work Phone: [facility] Comment on above: Prolapsed internal h emorrhoids (Primary Dx) Start: 01-22-2024 End: 01-22-2024 ambulatory DENISSE MATIAS [facility] Start: 01-03-2024 End: 01-03-2024 Patient encounter [...] Unsolicited Start: 12-24-2023 End: 12-24-2023 ambulatory DENISSE [facility] Start: 12-24-2023 End: 12-24-2023 Subsequent hospital visit by physician Denisse Chiang MD Work Phone: [facility] [place] Comment on above: Prolapsed internal h emorrhoids Start: 12-13-2023 End: 12-13-2023 ambulatory [facility] Start: 12-13-2023 End: 12-13-2023 Encounter for other preprocedural examination [facility] Start: 11-28-2023 End: 11-28-2023 ambulatory [facility] Start: 11-28-2023 End: 11-28-2023 ambulatory [facility] Start: 11-28-2023 End: 11-28-2023 ambulatory [facility] Start: 10-24-2023 ambulatory Tyler Person acility:[facility] Start: 10-09-2023 End: 10-09-2023 Office outpatient new 30 minutes Denisse Chiang MD Work Phone: [facility] Comment on above: Rectal prolapse (Coni briseida Dx); Internal hemorrhoids Start: 10-09-2023 End: 10-09-2023 ambulatory [facility] Start: 09-25-2023 End: 09-25-2023 Patient encounter procedure Melissa Rivera [facility] Start: 09-10-2023 End: 09-10-2023 Patient encounter procedure Melissa Guerrerominpriyank [facility] Start: 07-11-2023 End: 07-11-2023 Patient encounter procedure Melissa Rivera [facility] Start: 07-11-2023 End: 07-11-2023 Patient encounter procedure Melissa Rivera [facility] Start: 08-28-2022 End: 08-31-2022 Evaluation and management of inpatient MD Yaquelin Perez Work Phone: [facility] Work Phone: Start: 08-28-2022 End: 08-28-[address] YAQUELIN PEREZ . Facility:[facility] Start: 08-16-2022 ambulatory CHASITY BOOKER Facility:[facility] Start: 06-10-2022 End: 06-11-[address] NICOLLE BALL Facility:[facility] Start: 02-14-2022 Encounter for genera l adult medical examination without abnormal findings DR YAQUELIN PEREZ . [facility] Start: 02-13-2022 End: 02-14-[address] YAQUELIN [...] 01-19-2022 End: 01-19-2022 Patient encounter procedure Chasity CASTILLOAM [facility] Start: 10-12-2021 End: 10-13-2021 ambulatory CHASITY BOOKER Facility: Start: 08-30-2021 End: 08-30-2021 ambulatory Reddy Esdras Other [facility] Other Start: 08-30-2021 Office outpatient vi sit 15 minutes Reddy Dewitt [facility] Start: 08-09-2021 End: 08-09-2021 Patient encounter procedure MD Yaquelin Perez Work Phone: [facility] Start: 09-03-2017 End: 09-03-2017 Ambulatory JUDITH LEÓN [facility] Start: 06-11-2017 Ambulatory [facility] Start: 06-11-2017 Ambulatory [facility] Procedures Date Procedure Procedure Detail Performing Clinician Start: 01-03-2024 IGP,APTIMA HPV,AGE GDLN Sherri Reynolds PA Work Phone: Start: 01-03-2024 Microscopic observat [...] Endometrial ablation Gaspar S ALAM Hemorrhoid operation Muhamrobert robert Yolandachari Hemorrhoids (disorder) Gaspar SALAM Histology tonsillectomy Mahe r SALAM History of hernia repair Izabella er SALAM Plan of Treatment Date Care Activity Detail Author Start: 2030 Zoster Vaccines (1 o f 2) Zoster Vaccines (1 of 2) [facility] Start: 01-02-2027 Screening for malignant neoplasm of cervix [facility] Start: 12-23-2026 Diabetes mellitus screening Diabetes Screening [facility] Start: 01-12-2025 End: 01-12-2025 Patient encounter procedure 01/12/2025 3:00 PM EDT Office Visit [facility] [address] [place] [address] Sherri Reynolds PA [address] [place], [place] [address] [place] [address] [facility] Start: 01-06-2024 COVID-19 Vaccine ( season) COVID-19 Vaccine ( season) [facility] Start: 01-06-2024 Influenza vaccination [facility] Start: 01-03-2024 End: 01-03-2024 Patient encounter procedure 01/03/2024 3:00 PM EDT Office Visit [facility] [address] [place] [id number] Sherri Reynolds, PA [address] [place] [address] Arrived [facility] Comment on above: Arrived Start: 01-03-2024 End: 03-04-2025 MG Breast - bilateral Screening Bilateral screening mammogram Imaging Routine Breast cancer screening by mammogram Expected: 01/03/2024 (Approximate), Expires: 03/04/2025 [facility] Work Phone: Comment on above: Expected: 01/03/2024 (Approximate), Expires: 03/04/2025 Start: 11-28-2023 End: 11-28-2023 Patient encounter procedure 11/28/2023 2:00 PM EDT Office Visit [facility] [address] [place] [id number] Joseph Soriano, DO [address] [place] [address] [facility] Start: 01-05-2023 COVID-19 Vaccine ( season) COVID-19 Vaccine ( season) [facility] Start: 08-31-2022 [facility] Start: 08-28-2022 Hospital admission [facility] Start: 2020 Screening for malignant neoplasm of breast Mammogram [facility] Start: 10-18-2018 Varicella vaccination Varicell a Vaccines (1 of 2 - 13+ 2-dose series) [facility] Start: 2010 Screening for malignant neoplasm of cervix [facility] Start: 2002 DTaP/Tdap/Td Vaccine s (2 - Tdap) DTaP/Tdap/Td Vaccines (2 - Tdap) [facility] Start: 2001 Screening for malignant neoplasm of cervix [facility] Start: 1998 Diabetes mellitus screening Diabetes Screening [facility] Start: 1998 Hepatitis C screening Hepatitis C [facility] Start: 1986 Pneumococcal Vaccine : Pediatrics (0 to 5 Years) and At-Risk Patients (6 to 64 Years) (1 of 2 - PCV) Pneumococcal Vaccine: Pediatrics (0 to 5 Years) and At-Risk Patients (6 to 64 Years) (1 of 2 - PCV) [facility] Start: 1980 IPV Vaccines (2 of 3 - 4-dose series) IPV Vaccines (2 of 3 - 4-dose series) [facility] Start: 1980 HIV screening HIV Screening [facility] Start: 1980 Lipid panel Lipid Panel [facility] Start: 1980 Yearly Adult Physical Yearly Adult P hysical [facility] End: 12-24-2023 Continuous Pulse oximetry, In Phase 1 Continuous Pulse oximetry, In Phase 1 Respiratory Care Routine Continuous until discontinued starting 12/24/2023 [facility] Work Phone: Comment on above: Continuous until dis continued starting 12/24/2023 End: 12-24-2023 Incentive spirometry Instruct Incentive spirometry Instruct Respiratory Care Routine Once for 1 Occurrences starting 12/24/2023 until 12/24/2023 [facility] Service Area Work Phone: Comment on above: Once for 1 Occurrenc es starting 12/24/2023 until 12/24/2023 Patient Education Depression, Ad ult (DC) [facility] DC Instructions [facility] Work Phone: Patient referral [facility] Work Phone: Surgical pathology study [facility] Service Area Work Phone: Comment on above: Release Upon Elizabethin g for 1 Occurrences starting 12/24/2023, 1 completed THIN PREP TIS PAP AN D HR HPV DNA THIN PREP TIS PAP AND HR HPV DNA Pathology and Cytology Routine Well woman exam with routine gynecological exam Ordered: 01/03/2024 [facility] Comment on above: Ordered: 01/03/2024 Immunizations Immunization Date Immunization Notes Care Provider Jacki dunlap 06-02-2020 SARS-CoV-2 (COVID-19 ) mRNA-1273 vaccine Gaspar [employer] [facility] 05-05-2020 SARS-CoV-2 (COVID-19 ) mRNA-1273 vaccine Gaspar SALAM [facility] 03-25-2020 influenza virus vaccine, unspecified formulation Sherri LARKIN Work Phone: [facility] 09-20-2018 hepatitis A vaccine, adult dosage Gaspar SALAM [facility] 09-20-2018 measles, mumps and rubella virus vaccine Gaspar SALAM [facility] 04-16-2017 hepatitis B vaccine, adult dosage Gaspar SALAM [facility] 11-08-2016 hepatitis B vaccine, adult dosage Gaspar SALAM [facility] 10-04-2016 hepatitis B vaccine, adult dosage Gaspar SALAM [facility] 1980 poliovirus vaccine, unspecified formulation Denisse Chiang MD Work Phone: [facility] Work Phone: NEGATED: Highlighted row has not occurred!07-09-2023 influenza virus vaccine, unspecified formulation Torres Sarmini [facility] NEGATED: Highlighted row has not occurred!07-06-2022 influenza virus vaccine, unspecified formulation Torres Sarmini [facility] NEGATED: Highlighted row has not occurred!06-13-2021 influenza virus vaccine, unspecified formulation Gaspar SALAM [facility] Payers Date Payer Category Payer Private Health Insurance [facility] [id number] 2021 Unknown [id number] 2017 Unknown [id number] 2016 Unknown [id number] 1980 Unknown [id number] 2.16.84 0.1.621477.3.579.2.593 1980 Unknown [id number] 2.16.84 0.1.877136.3.579.2.593 1980 Unknown [id number] 2.16.84 0.1.741218.3.579.2.593 1980 Unknown [id number] 2.16.84 0.1.036423.3.579.2.593 1980 Unknown [id number] 2.16.84 0.1.002935.3.579.2.593 1980 Unknown [id number] 2.16.84 0.1.485525.3.579.2.593 1980 Unknown [id number] 2.16.84 0.1.373378.3.579.2.593 1980 Unknown [id number] 2.16.84 0.1.223069.3.579.2.593 1980 Unknown [id number] 2.16.8 40.1.598243.3.579.2.1244 1980 Unknown [id number] 2.16.8 40.1.359818.3.579.2.5 1980 Unknown [id number] 2.16.8 40.1.617128.3.579.2.1244 1980 Unknown [id number] 2.16.8 40.1.142454.3.579.2.1244 1980 Unknown [id number] 2.16.8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 the accuracy or completeness of information in this document.
--- NOTE | 2024-11-26 06:55 | CA_ITS ---
Patient Name: RAMY MARTINEZ MR#: [id number] : 1980 Exam Date: 11/26/2024 Ordering Doctor: DR YOLANDE NGUYEN M.D. ECHOCARDIOGRAM REPORT PROCEDURE: CA ECHO DOPPLER COMPLETE INDICATIONS: Chest pain, dyspnea, diabetes COMPARISON: None. DESCRIPTION: COMPLETE ECHOCARDIOGRAM Real-time transthoracic echocardiography with 2D, M-mode, spectral and color flow Doppler performed. QUALITY: Technical quality was good. LEFT VENTRICLE: Normal chamber size. Normal left ventricular wall thickness. LV EF: Normal left ventricular ejection fraction, (>55%). DIASTOLIC: Normal diastolic function. ATRIAL SEPTUM: Visually appears intact. LEFT ATRIUM: Normal chamber size. RIGHT ATRIUM: Normal chamber size. RIGHT VENTRICLE: Normal chamber size. Normal right ventricular systolic function. TRICUSPID VALVE: Normal mobility and thickness. No stenosis with trivial regurgitation. No evidence of pulmonary hypertension. RVSP 18 mmHg MITRAL VALVE: Normal mobility and thickness. No evidence of mitral valve stenosis. There is no mitral annular calcification. No mitral regurgitation. AORTIC VALVE: Normal trileaflet appearance. No visible sclerosis. Normal leaflet mobility. No evidence of aortic valve stenosis. No aortic regurgitation. AORTIC ROOT: Normal diameter and appearance, measuring 3.5 cm. The ascending aorta is normal in size, measuring 3.3 cm. PULMONIC VALVE: Normal thickness and mobility. No stenosis. Trivial regurgitation. PERICARDIUM: No evidence of pericardial effusion. IVC: Collapses with inspiration. PLEURA: CONCLUSION: 1. Normal ventricular size and systolic function. Estimated LVEF is 60-65%. 2. Normal diastolic function. 3. No significant valvular dysfunction. 4. Normal right-sided pressures. Adult Echocardiography Procedure Report Left Ventricle LVEDD (3.7 - 5.6 cm): 4.59 cm LVESD (2.2 - 4.0 cm): 3.35 cm LVIVS thickness (0.6 - 1.2 cm): 0.99 cm LVPW thickness (0.5 - 1.0 cm): 0.84 cm e': 0.16 m/s E - e': 6.67 LVOT Max Gradient: 2.71 mm[Hg] LVOT Area (cm2): 0.82 m/s Peak Velocity (LVOT): 0.82 m/s Mean Velocity (LVOT): 0.58 m/s LVOT Diameter 2.34 cm Left Ventricular Ejection Fraction: 60-65 % Left Atrium LA Volume Index (2D A2C): 27.79 ml/m2 Left Atrium Systolic Dimension: 3.74 cm Mitral Valve MV E to A Ratio: 1.97 Mitral Valve A-Wave Peak Velocity: 0.56 m/s Mitral Valve E-Wave Peak Velocity: 1.10 m/s Right Ventricle Aorta AO Root Diam: 3.51 cm Ascending Ao Diam: 3.33 cm Aortic Valve AoV Area (Peak Leon): 3.31 cm2, 3.31 cm2 AoV Area (VTI): 3.46 cm2, 3.46 cm2 Peak Velocity(Antegrade Flow): 1.07 m/s Peak Gradient(Antegrade Flow): 4.61 mm[Hg] Mean Velocity(Antegrade Flow): 0.72 m/s Mean Gradient(Antegrade Flow): 2.39 mm[Hg] Velocity Time Integral: 25.46 cm Tricuspid Valve Peak Velocity (Regurgitant Flow): 1.94 m/s Pulmonic Valve Mean Gradient: 2.22 mm[Hg] Mean Velocity: 0.70 m/s Peak Velocity: 0.98 m/s Peak Gradient: 3.87 mm[Hg] Right Atrium Right Atrium Systolic Pressure: 33.04 ml, 33.04 ml Dictated by: Yolande Nguyen M.D. on 11/26/2024 at 18:47 Approved by: Yolande Nguyen M.D. on 11/26/2024 at 18:49
== END 2024-11-26 06:48 | disposition home or self-care (01) ==
LOC: CARD 06:47
PROVIDERS: PCP Family Medicine; Visit Provider Internal Medicine Interventional Cardiology
DX: R07.89 Other chest pain (principal); R06.02 Shortness of breath
CPT/HCPCS: 93306

== ENCOUNTER 2024-12-03 06:43 | Outpatient (OUT) | payer BC, SELFPAY ==
--- OUTSIDE RECORDS SUMMARY | 2024-10-06 03:30 | XMS_ITS ---
Author Organization [facility] in [place] Address [address] [place] [address] Care Team Providers Care Centrifuge Operator Name Role Phone Edil Martell Primary Care Provider Orestes Gerber [phone] Allergies Allergen (clinical drug ingredient) Drug/Non Drug [...] unspecif ied (R07.9) Referral Organization [facility] [place] Referring Provider First Name Orestes Referring Provider Last Name Zabrina Referring Provider Speciality Pulmonolog y Referred Provider Specialty Cardiology General Notes Juanito Yu 10/06 09:47:08 AM >Referral taken to [facility] Cardiology and given to Aimee Renae Riley 10/09/2024 11:18:30 AM >I called and spoke with Kim at [facility] Cardiology. Patient was contacted and scheduled for [...] Encounter Location Date Provider Diagnosis [facility] [place] [address] [place] [address] 10/06/2024 Orestes Gerber Severe persistent asthma, uncomplicated J45.50 ; Chest pain, unspecified R07.9 ; Community acquired pneumonia J18.9 ; Lung bullae J43.9 ; Peripheral eosinophilia D72.19 ; RASHAD (obstructive sleep apnea) G47.33 ; meterman (current) use of inhaled steroids Z79.51 ; [...] Majority of symptoms resolved with exception of OGMEZ which is out of proportion to testing (GOMEZ just walking in from parking lot into the office). With normal PFT, do not feel a biologic is the best next step - I would suggest referral to cardiology for evaluation. If that returns unremarkable, then I would suggest referral to lint cleaner for allergy testing (would be difficult to [...] (ICD-10 - G47.33) Defer to PCP. 10/06/2024 assisted (current) use of inhaled steroids (ICD-10 - [...] which is out of proportion to testing (GOEMZ just walking in from parking lot into the office). With normal PFT, do not feel a biologic is the best next step - I would suggest referral to cardiology for evaluation. If that returns unremarkable, then I would suggest referral to lint cleaner for allergy testing (would be difficult to [...] RASHAD (obstructive sleep apnea) Defer to PCP. assisted (current) use of i nhaled steroids Patient was counseled to rinse & gargle with water after inhaled corticosteroid use. Obesity Patient's weight is inducing a restrictive pulmonary physiology. Weight loss indicated: Decrease calories, increase activity. Referrals Referral Date Details 10/06/2024 10/06/2024, Chest pa in Next Appt Details Follow Up: 3 Months, Reason: Asthma Provider Name:Orestes Gerber, 12/31/2024 07:30:00 AM, [address] [place], [address], Procedure Notes * Category Sub-Category Detail Notes PFT Data: 09/25/2024-FEV1/F VC: 80%-FEV1: 102%-FVC: 103%-Bronchodilator response: Partial-RV: 82%-T%-113% Alpha-1 Antitrypsin Screening Date: 09/08/2024 Genotype: M/M Progress Notes * Madhuri GUSMAN MDOB:[birth year] (44 yo F)Acc No.[id number]:10/06/2024 Follow Up Patient: Madhuri PETERSEN Provider: Zari Gerber DO :1980 A ge:44 Y S ex:Female Date:10/06/2024 Address:[address] [facility] Pcp:Edil Martell Check In:07:26 AM ESTCheck O [...] pain occurs. She has never seen a packaging sales consultant. Reviewed AAT is normal genotype MM. MA Intake Comments:. Patient presents for a follow-up for Asthma. Patient was started on Trelegy 200 and reports great benefit.Patient states the Trelegy 200 worked better than Trelegy 100. Patient complains of SOB & Chest Pain today. Patient denies cough or wheezing today. Patient is following up after PFT performed at [facility]. Patient is scheduled for a Colonoscopy tomorrow. [...] ini tial encounter Modified On:09/05/2022W/U Status:confirmed Z79.51 assisted (current) use of inhaled steroids Modified On:09/08/2024W/U Status:confirmed Z00.00 Well adult Modified On:09/26/2024W/U Status:confirmed * Medical History: * Surgical History: T onsillectomy Cyst Removal C Section X 1 Hernia Repair Neck Surgery cholecystectomy endometrial ablation tubal ligation * Hospitalization/Major Diagno stic Procedure: A sthma Exacerbation-[facility] 08/25/2024 * Family History: F ather: alive, [...] 50 MG Tablet 2 Oral qhs Trelegy Ellipta(Kalimsscuhl-Wibugkgga-Lyveep) 200-62.5-25 MCG/ACT Aerosol Powder Breath Activated 1 [...] MG Tablet 2 Oral qhs Taking Trelegy Ellipta(Quwqjntcklm-Eunusopls-Yfgsue) 200-62.5-25 MCG/ACT Aerosol Powder Breath Activated 1 puff Inhalation Once a day Taking Venlafaxine HCl ER 75 MG Capsule Extended Release 24 Hour Oral Taking Ventolin HFA(Albuterol Sulfate HFA) 108 (90 Base) MCG/ACT Aerosol Solution 2 puff as needed Inhalation every 4 hrs Not-Taking/PRNTrelegy Ellipta(Stfnbkecswc-Txkgjvmjo-Atkclc) 100-62.5-25 MCG/ACT Aerosol Powder Breath Activated 1 puff Inhalation Once a day Medication List reviewed and reconciled with the patientNot-Taking/PRN Trelegy Ellipta(Lhxshrsaxbj-Jaqbcbwzg-Zqexxy) 100-62.5-25 MCG/ACT Aerosol Powder Breath Activated 1 [...] Reason: D rug declined by patient B [place] ACTION PLAN Above Normal BMI Follow-up D ietary management education, guidance, and counseling * Follow Up: 3 Months (Reason: Asthma) * * Sign off status: Completed Visit Status: C HK (Check Out) true * Provider: Zari Gerber DO Date: 0 10/06/2024 Generated for Juni felipe/Jasmyn/Finesseitting on: 0 12/03/2024 06:46 AM EDT History and Physical Notes * [...] is following up after PFT performed at [facility]. Patient is scheduled for a Colonoscopy tomorrow. Examination Category Sub-Category Detail Notes Category Not es Exam GENERAL APPEARANCE: Appears stated age Skin Normal Mouth [place] and moist. No o ral candidiasis Trachea [...]
--- OUTSIDE RECORDS SUMMARY | 2024-10-06 06:08 | XMS_ITS ---
Author Organization [facility] in [place] Address [address] [place] [address] Care Team Providers Care Living Nurse Name Role Phone Edil Martell Primary Care Provider Orestes Gerber [phone] REASON FOR VISIT CXR Result Encounters Encounter Location Date Provider Diagnosis [facility] [place] [address] [place] [address] 10/06/2024 Orestes Gerber Plan Of Treatment Next Appt Details Provider Name:Orestes Gerber, 12/31/2024 07:30:00 AM, [address] [place], [address], Progress Notes * Madhuri GUSMAN MDOB:[birth year] (44 yo F)Acc No.[id number]:10/06/2024 Patient: Madhuri PETERSEN :1980 A ge:44 Y S ex:Female Address:[address] [place] [address] * true * Date: Generated for Micheali destinee/Jasmyn/eTransmitting on: 0 12/03/2024 06:46 AM EDT
--- OUTSIDE RECORDS SUMMARY | 2024-11-03 13:00 | XMS_ITS ---
Author Organization The [facility] in [place] Address [address] [place] [address] Care Team Providers Care Spectrograph Operator Name Role Phone Edil Martell Primary Care Provider [phone] Allergies Allergen (clinical drug ingredient) Drug/Non Drug [...] Encounters Encounter Location Date Provider Diagnosis [facility] [address] [place] [address] 11/03/2024 Edil Martell History of diet-controlled diabetes [...] Name:Orestes Gerber, 12/31/2024 07:30:00 AM, [address] [place], [address], Progress Notes * Madhuri GUSMAN MDOB:[birth year] (44 yo F)Acc No.[id number]:11/03/2024 Progress Note Patient: Madhuri PETERSEN Provider: Robert Martell ([facility])MD :1980 A ge:44 Y S ex:Female Date:11/03/2024 Address:[address] [facility] Check In:04:46 PM ESTCheck O [...] ini tial encounter Modified On:09/05/2022 Status:confirmed 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 Modified On:09/08/2024 Status:confirmed Z00.00 Well adult Modified On:09/26/2024 Status:confirmed * Medical History: * Surgical History: T onsillectomy Cyst Removal C Section X 1 Hernia Repair Neck Surgery cholecystectomy endometrial ablation tubal ligation Colonoscopy 10/07/2024 * Hospitalization/Major Diagno stic Procedure: A sta Exacerbation-[facility] 08/25/2024 * Family History: F ather: alive, [...] 50 MG Tablet 2 Oral qhs Trelegy Ellipta(Vfgnkwipavi-Kjjtacvvn-Lslofy) 200-62.5-25 MCG/ACT Aerosol Powder Breath Activated 1 [...] MG Tablet 2 Oral qhs Taking Trelegy Ellipta(Gqbkxfsziog-Vkdxjflqq-Fykiqx) 200-62.5-25 MCG/ACT Aerosol Powder Breath Activated 1 [...] Procedure Codes: * Preventive Medicine: Screenings/Counseling: B MS ACTION PLAN Above Normal BMI Follow-up D ietary management education, guidance, and counseling See treatment section of progress note for complete details of management plan. * * Sign off status: Completed Visit Status: C HK (Check Out) true * Provider: Robert Martell ([facility])MD Date: 11/03/2024 Generated for Printi ng/Fanikolasg/eTransmitting on: 12/03/2024 06:46 AM EDT History and Physical [...]
--- OUTSIDE RECORDS SUMMARY | 2024-12-03 06:46 | XMS_ITS | Encounter Summary ---
Author Organization [facility] Address [address] [facility] [place] [address] Care Team Providers Care Rail Layer Name Role Phone Unavailable Primary Care Provider Unavailabl e Encounter Details Date Type Department Care Team (Late Contact Info) Description 01/11/2024 Clinisync Result Encounter [facility] External Department Unsolicited Sherri Reynolds PA [address] [facility] [address] [place], [facility] Social History Tobacco Use Types Packs/Day Years [...] 01/12/2025 3:00 PM EDT Office Visit [facility] [address] [place] [address] [place] [address] Sherri Reynolds PA [address] [facility] [address] [place], [place] [id number] documented as of this encounter Procedures Procedure Name Priority Date/Time Associated Diagnosis Comments MM TOMOSYNTHESIS SCREENING BI 01/11/2024 9:13 AM EDT documented in this encounter Results * MM TOMOSYNTHESIS SCREENING BI (01/11/2024 9:13 AM EDT) Anatomical Region Laterality Modality Other 01/11/2024 9:13 AM EDT Narrative 01/11/2024 9:14 [place] [address] Mammography Report Signed Patient: RAMY GUSMAN MR#: [id number] : 1980 Acct:[id number] Age/Sex: 43 / F ADM Date: 01/08/24 Loc: MAMMO Attending Dr: Sherri Reynolds Ordering Physician: Sherri Reynolds Results: Date of Service: 01/08/24 Follow Up: Procedure(s): MM tomosynthesis screening BI Accession Number(s): [id number] cc: Sherri Reynolds; Bipin Martell M.D. Patient Name: RAMY GUSMAN MR#: [id number] : 1980 Exam Date: 01/08/2024 Ordering Doctor: [...] uterine cancer at age 40. LOCATION: The [facility] BREAST COMPOSITION: The breasts are heterogeneously dense,which [...] M.D. Signed By: 01/11/24913 DD/ 2 TD/TT: Gas Combustion Engineer: Procedure Note Radiology, Radiologist, MD - 01/11/2024 [place] [address] Mammography Report Signed Patient: RAMY GUSMAN MMR#: [id number] : 1980Acct:[id number] Age/Sex: 43 / FADM Date: 01/08/24 Loc: MAMMO Attending Dr: Sherri Reynolds Ordering Physician: Sherri ReynoldsResults: Date of Service: 01/08/24Follow Up: Procedure(s): MM tomosynthesis screening BI Accession Number(s): [id number] cc: Sherri Reynolds; Bipin Martell M.D. Patient Name: RAMY GUSMAN MR#: [id number] : 1980 Exam Date: 01/08/2024 Ordering Doctor: [...] uterine cancer at age 40. LOCATION: [facility] BREAST COMPOSITION: The breasts are heterogeneously dense,which [...] Fernández M.D. Signed By:01/11/24913 DD/ 2 TD/TT: Gas Combustion Engineer: us Sherri [facility] Final Result documented in this encounter Visit Diagnoses Not on filedocumented in this encounter
--- OUTSIDE RECORDS SUMMARY | 2024-12-03 06:46 | XMS_ITS | Clinical Summary ---
Author Organization [facility] Address [address] [place] [address] Care Team Providers Care Teacher Of The Sight Impaired Name Role Phone Bipin Martell MD Primary Care Provider [phone] Allergies Active Allergy Reactions Criticality Noted Date [...] (10/20/2024): Added automatically from request for surgery [id number] Severe obesity with body mas s index (BMI) of 35.0 to 39.9 with serious comorbidity 09/25/2016 Overview (10/20/2024): 08/05/22 IMO Update Encounters Date Type Department Care Team Description 10/20/2024 3:45 PM EDT Office Visit [facility] [address] [place] [address] Koffi Hooks MD Palpitations (Primary [...] Description 12/22/2024 3:00 PM EDT Office Visit [facility] [address] [place] [address] Koffi Hooks MD [address] [place] [address] Health Maintenance Due Date Last Done [...] age to complete this topic Insurance [facility] Care Teams Teacher Of The Sight Impaired Relationship Specialty Start Date End Date Bipin Martell MD [address] [facility] [place] [address] PCP - General Family Medicine 10/17/24
--- OUTSIDE RECORDS SUMMARY | 2024-12-03 06:46 | XMS_ITS | Clinical Summary ---
Author Organization [facility] Address [address] 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 Active Active Problems Problem Noted Date Diagnosed [...] 3 - 4-dos e series) [birth year] Hepatitis C Screening 1998 Pneumococcal Vaccine: Pediatrics [...] this topic Medical Devices Implanted Type Area Kennel Worker Device Identifier Shelf Expiration Date Model / Serial / Lot Mesh Mesh Abdomen Procedures Procedure Name Priority Date/Time Associated Diagnosis Comments POCT GLUCOSE Routine 12/24/2023 12:13 PM EDT from Last 3 Months or Most Recently Relevant to Health Maintenance Results * POCT GLUCOSE (12/24/2023 12:13 PM EDT) POCT Glucose 99 74 - 99 mg/dL 12/24/2023 12:15 PM EDT [facility] Blood Capillary blood specimen / Unknown 12/24/2023 12:13 PM EDT 12/24/2023 12:15 PM EDT us Marcell Chiang MD LAB POINT OF CARE TE ST DOCKED DEVICE UNSOLICITED RESULTS Final Result [facility] [id number] [place] [id number] from Last 3 Months or Most Recently Relevant to Health Maintenance Insurance * Guarantor: Madhuri Gusman Account Type Relation to Patient Date of Phone Billing Address Personal/Family Self [address] [place] [id number] [facility] Advance Directives For more information, please contact: [phone] (Available ) * Full Code (Latest Code Status on File) Date Activated Date Inactivated Comments 12/24/2023 12:03 PM Question Answer Comments Plan of Care: Code Status Discussion Not Compl eted Decision Maker: Provider Rationale: Patient condition does not warra nt discussion Care Teams Glass Engraver Relationship Specialty Start Date End Date Bipin Martell MD [address] [facility] [place] [address] PCP - General Family Medicine 09/28/23
--- OUTSIDE RECORDS SUMMARY | 2024-12-03 06:46 | XMS_ITS | Clinical Summary ---
Author Organization [facility] Address [address] [place] [address] Care Team Providers Care Cardiac Monitor Technician Name Role Phone Unavailable Primary Care Provider [...] 3:00 PM EDT Office Visit [facility] [address] [facility] [place] [address] Sherri Reynolds PA [address] [place] [address] Health Maintenance Due Date Last Done Comments [...] EDT Narrative 01/11/2024 9:14 AM EDT The [address] [address] Mammography Report Signed Patient: RAMY GUSMAN MR#: [id number] : 1980 Acct:[id number] Age/Sex: 43 / F ADM Date: 01/08/24 Loc: MAMMO Attending Dr: Sherri Reynolds Ordering Physician: Sherri Reynolds Results: Date of Service: 01/08/24 Follow Up: Procedure(s): MM tomosynthesis screening BI Accession Number(s): [id number] cc: Sherri Reynolds; Bipin Martell M.D. Patient Name: RAMY GUSMAN MR#: [id number] : 1980 Exam Date: 01/08/2024 Ordering Doctor: [...] uterine cancer at age 40. LOCATION: [facility] BREAST COMPOSITION: The breasts are heterogeneously [...] M.D. Signed By: 01/11/24913 DD/ 2 TD/TT: Seeing Eye Dog Teacher: Procedure Note Radiology, Radiologist, MD - 01/11/2024 [place] [address] Mammography Report Signed Patient: RAMY GUSMAN MMR#: [id number] : 1980Acct:[id number] Age/Sex: 43 / FADM Date: 01/08/24 Loc: MAMMO Attending Dr: Sherri Reynolds Ordering Physician: Sherri ReynoldsResults: Date of Service: 01/08/24Follow Up: Procedure(s): MM tomosynthesis screening BI Accession Number(s): [id number] cc: Bipin Perry M.D. Patient Name: RAMY GUSMAN MR#: [id number] : 1980 Exam Date: 01/08/2024 Ordering Doctor: [...] uterine cancer at age 40. LOCATION: [facility] BREAST COMPOSITION: The breasts are heterogeneously [...] Fernández M.D. Signed By:01/11/24913 DD/ 2 TD/TT: Seeing Eye Dog Teacher: us Sherri [facility] Final Result * Pap Smear (01/03/2024 12:00 AM EDT) Swab Cervical swab / Unknown us Pooja Nurse [facility] CYTOLOGY ORDERABLES Final Result EXTERNAL LAB from Last 3 Months or Most Recently Relevant to Health Maintenance Insurance
--- OUTSIDE RECORDS SUMMARY | 2024-12-03 06:46 | XMS_ITS | Encounter Summary ---
Author Organization [facility] Address [address] [facility] [place] [address] Care Team Providers Care Tennis Coach Name Role Phone Unavailable Primary Care Provider Unavailabl e Encounter Details Date Type Department Care Team (Late Contact Info) Description 01/09/2024 Orders Only [facility] [address] [facility] [place] [address] Shyla Tavares LPN [address] [place] [place] [address] Social History Tobacco Use Types Packs/Day Years [...] 3:00 PM EDT Office Visit [facility] [address] [facility] [place] [address] Sherri Reynolds PA [address] [place], [facility]11 documented as of this encounter Procedures Procedure [...]
--- OUTSIDE RECORDS SUMMARY | 2024-12-03 06:47 | XMS_ITS | CCD ---
Author Organization [facility] Care Team Providers Care Chief Fundraising Officer Name Role Phone ABERRA, JOSEFINA Unavailable Unavailable HOUSE, JUDITH P Unavailable Unavailable HOUSE, JUDITH P Unavailable Unavailable ABERRA, JOSEFINA Unavailable Unavailable HOUSE, JUDITH P Unavailable Unavailable HOUSE, JUDITH P Unavailable Unavailable HOUSE, JUDITH P Unavailable Unavailable LI, NA Unavailable Unavailable LI, NA Unavailable Unavailable KELLEYA, JOSEFINA Unavailable Unavailable MD Yaquelin Perez Primary Care Provider [phone] MD Reddy Dewitt Attending Provider Reddy Dewitt Unavailable Yaquelin Perez Primary Care Physician [phone] CHASITY BOOKER Admitting Unavailable CHASITY BOOKER Attending Unavailable CHRIS ., DR JAMISON Primary Care Unavailable CHASITY BOOKER Consulting Unavailable LUIS ., DR CHASE Admitting Unavailable LUIS ., DR CHASE Attending Unavailable HOY ., DR JAMISON Primary Care Unavailable LUIS ., DR CHASE Consulting Unavailable LUIS ., DR CHASE Admitting Unavailable LUIS ., DR CHASE Attending Unavailable HOY ., DR JAMISON Primary Care Unavailable [facility], DR KRYSTAL Pelaez Consulting Unavailable LUIS ., [...] Admitting Unavailable CHASITY BOOKER Attending Unavailable DR YAQUELNI PATINO Primary Care Unavailable MD Yaquelin Perez Primary Care Provider [id number] MD Arleth Roach Admit Provider MD Arleth Roach Attending Provider Yaquelin Perez MD Primary Care Provider [phone] Tyler Roach Attending Unavailab Tyler Martinez Admitting [...] skin (disorder), Swelling (finding), Swelling (morphologic abnormality) [facility] (2 sources) benzonatate; Translations: [Di [...] / thiamine 0.0333 mg/ml / vitamin b12 0.359324 mg/ml / zinc sulfate 0.333 mg/ml oral [...] qAM, # 120 cap(s), Refills(s) 6, Pharmacy: [facility], 166, cm, 09/25/23 14:32:00 EDT, Height/Length Dosing, 79, kg, 09/25/23 14:32:00 EDT, Weight Dosing Start Date: 02/01/24 Status: Ordered Quantity: 120.0 Unit: cap(s) Repeat number: 7 Start: 08-28-2022 take 1 capsule by [facility] once daily in the morning Mesalamine (Apriso) 0.375 gram capsule,extended release 24hr Active 0.375 GM PO Every morning August 28, 2022 12:00am Start: 07-06-2022 End: 09-29-2023 take 4 capsules by mouth once daily in the morning Apriso 0.375 g oral capsule, extended release 1.5 gm = 4 cap(s), Oral, qAM, X 90 day(s), # 360 cap(s), Refills(s) 4, [id number], 166, cm, 07/06/22 13:48:00 EST, Height/Length Dosing, 98.7, kg, 07/06/22 13:48:00 EST, Weight Dosing Start Date: 07/06/22 Stop Date: 09/29/23 Status: Ordered mesalamine ER (A priso) 0.375 gram 24 hr capsule Active take 1 capsule by [facility] once daily mesalamine ER (Apriso) 0.375 [...] 1 (one) time per week in the early childhood specialist.. Active riboflavin, selam min B2, (VITAMIN B-2 ORAL) Take by mouth 1 (one) time per week in the early childhood specialist.. Suspended traZODone hydrochloride 50 mg oral tablet [...] Date: 09/24/24 Status: Ordered Repeat number: 1 Iirisei-Uhdm-Dlhdi -Oreg-Capryl (1 source) Start: 08-28-2022 take 1 capsule by mouth once daily Oggarpf-Cynm-Qh ifh-Emgt-Gkbreh Active 1 CAP PO Daily August 28, [...] 2022 12:00am take 1 capsule by mo [facility] every twenty-four hours in the morning venlafaxine [...] follow instructions per packaging and physician's handout, [facility], 166, cm, 09/24/24 8:26:00 EDT, Height/Length [...] Dr. Booker. Colonoscopy ordered by Dr. Booker., [facility]/pharmacy #[id number], 166, cm, 06/13/21 8:20:00 EST, Height/Length Dosing, 110.5, kg, 06/13/21 8:20:00 EST, Weight Dosing Start Date: 06/13/21 Status: Ordered Start: 06-13-2021 take 1 tablet by mouth once Lundy tab oral tablet See Instructions, 24 tab(s), Refill(s) 0, Please follow instructions per packaging and physician's handout. Prior to colonoscopy as instructed by Dr. Booker. Colonoscopy ordered by Dr. 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 Normal [facility] Comment on above: Result Comment: Elec tronically [...] EDT With: Miguel HAQUE, Melissa Talavera Where: [facility] [address] [place] [address]- You Need to Schedule the Following Appointments Follow Up with Miguel HAQUE, Melissa Talavera, GAS, MED When: In 1 year Where: [address], [address] [place] [address]- [phone] Medications What How Much When Instructions Unchanged [...] signed up for this yet, please contact nvite at [phone] to get signed up today. Language Information Language assistance services are available as needed. Normal [facility] Reminderson 10-21-2024 Reminders Reminders From: Penny Saldivar MA S To: [facility] - Reminders/Recalls; Sent: 10/21/2024 11:48:28 EDT Show up: 09/04/2025 11:48:00 EDT Subject: colon recall Due Date/Time: 10/07/2025 11:48:00 EDT Reminder/Recall [address] Rivera 10/07/24 Normal [facility] Office Visiton 10-20-2024 Follow-up visit [id number] Yonas Martinez 1980 F Date Provider Department Center 10/20/2024 SamYOLANDE NGUYEN CARD [facility] Family History Problem Relation Age of Onset Lung cancer Mother Hypertension Father Stroke Paternal Grandmother Coronary artery disease Paternal Grandmother Family Status - Relation Status Age at Mother Father Alive Paternal Grandmother Level of Service:72723 RI OFFICE/OP CONSLTJ NEW/EST PT MOD MDM 40 MINUTES Normal [facility] Surgical Pathology Reporton 10-10-2024 Surgical Pathology Report [facility] [address] [place] [address]- Surgical Pathology Report Collected Date/Time: 10/07/2024 10:33 [...] dimension, totally submitted in one cassette. () [facility] Microscopic Description Microscopic examination performed unless gross only specified. Quality was accessed and acceptable. This report was transcribed using voice recognition technology and might contain unintended computerized disability rater errors. Normal [facility] Comment on above: Performed By: #### 4 [id number] #### [facility] Laboratory [address] [place] [address] Ambulatory Visit Summaryon 0 09-24-2024 Ambulatory Visit [...] choosing us for your care. Fe Os[facility] Gastroenterology Office/Clin ic Noteon 09-24-2024 Gastroenterology [...] so we will place a referral to [facility] Rheumatology. 2. Rectal prolapse (K62.3: Rectal prolapse) referral placed to colorectal at [facility] Colonoscopy 09/10/23: Impression and Plan 1. [...] can disc (more content not included)... Normal [facility] Comment on above: Result Comment: Elec tronically [...] Low,>-Panic High,A-Abnormal,AA-Critical Abnormal Performed at: 01 = [address] [place] [address] Zainab Mckeon MD, HPV APTIMA Negative Negative [facility] Comment on above: This nucleic acid am plification test detects fourteen high- risk HPV types (16,18,31,33,35,39,45,51,52,56,58,59,66,68) without differentiation. Performed at: =[facility] [address], [place] [id number] Roofing Sales Representative: Zainab Mckeon MD, Phone: [phone] Performed at: - [address], [place] [id number] Roofing Sales Representative: Zainab Mckeon MD, Phone: [phone] IGP, APTIMA HPV, RFX 16/18,45 Note . [facility] Comment on above: TESTS RESULT FLAG UN ITS REF RANGE LAB DIAGNOSIS: 02 NEGATIVE FOR INTRAEPITHELIAL LESION OR MALIGNANCY. Specimen adequacy: 02 Satisfactory for evaluation. No endocervical component is identified. Performed by: Charles Cabrera, Paper Cap Machine Operator (ASCP) . 02 Note: Note 02 [...] High <-Panic Low,>-Panic High,A-Abnormal,AA-Critical Abnormal Performed at: [facility] [address] [place] [address] Zainab Mckeon MD, BRUSH-SPATULA CERVIX ENDOCERVIX [facility] Glucose Test strip manual (B ld) [Mass/Vol]on 12-24-2023 Glucose [Mass/Vol] 99 mg/dL 74 - 99 mg/dL [facility] Interpretation and review of laboratory results Normal [facility] Glucose [Mass/Vol] 99 mg/dL Normal 74-99 [facility] Comment on above: Performed By: #### 2 341-6 #### SABRINA GERMAN ([id number]) [facility] ([facility]) [address] [place] [address] HCG ( test) IA.rapi d Ql (U)Ordered By: Josseline Spring on 12-24-2023 HCG ( test) Ql (U) Negative NEGATIVE [facility] Interpretation and review of laboratory results Normal [facility] HCG ( test) IA.rapi d Ql (U)on 12-24-2023 HCG ( test) Ql (U) Negative Normal NEGATIVE [facility] Comment on above: Performed By: #### 8 0384-1 #### SABRINA GERMAN ([id number]) [facility] ([facility]) [address] [place] [address] Basic metabolic 2000 panelon 12-13-2023 Anion gap [Moles/Vol] 12 mmol/L Normal 10-20 [facility] Comment on above: Performed By: #### 3 084-1 #### KADE Sandra ([id number]) [facility] ([facility]) [address] [place] [address] Calcium [Mass/Vol] 10.2 mg/dL Normal 8.6-10.3 [facility] Comment on above: Performed By: #### 3 084-1 #### KADE Sandra ([id number]) [facility] ([facility]) [address] [place] [address] Chloride [Moles/Vol] 104 mmol/L Normal 98-107 [facility] Comment on above: Performed By: #### 3 084-1 #### KADE Sandra ([id number]) [facility] ([facility]) [address] [place] [address] CO2 [Moles/Vol] 30 mmol/L Normal 21-32 [facility] Comment on above: Performed By: #### 3 084-1 #### KADE Sandra ([id number]) [facility] ([facility]) [address] [place] [address] Creatinine [Mass/Vol] 0.66 mg/dL Normal 0.50-1.05 [facility] Comment on above: Performed By: #### 3 084-1 #### KADE Sandra ([id number]) [facility] ([facility]) [address] [place] [address] GFR/1.73 sq M.predicted MDRD (S/P/Bld) [Vol rate/Area] mL/min/{1.73_m2} Normal >60 [facility] Comment on above: Result Comment: Calc ulations of estimated GFR are performed using the 2020 CKD-EPI Study Refit equation without the race variable for the IDMS-Traceable creatinine methods. https://jasn.asnjournals.org/content/early//ASN.86561 62241 Performed By: #### 3 084-1 #### KADE Sandra ([id number]) [facility] ([facility]) [address] [place] [address] Glucose [Mass/Vol] 117 mg/dL High 74-99 [facility] Comment on above: Performed By: #### 3 084-1 #### KADE Sandra ([id number]) [facility] ([facility]) [address] [place] [address] Potassium [Moles/Vol] 4.9 mmol/L Normal 3.5-5.3 [facility] Comment on above: Performed By: #### 3 084-1 #### KADE Sandra ([id number]) [facility] ([facility]) [address] [place] [address] Sodium [Moles/Vol] 141 mmol/L Normal 136-145 [facility] Comment on above: Performed By: #### 3 084-1 #### KADE Sandra ([id number]) [facility] ([facility]) [address] [place] [address] Urea nitrogen [Mass/Vol] 7 mg/dL Normal 6-23 [facility] Comment on above: Performed By: #### 3 084-1 #### KADE Sandra ([id number]) [facility] ([facility]) [address] [place] [address] 59182 Beta 2 glycoprotein 1 Ab IgA and IgG and IgM panel (S)on 11-28-2023 Beta 2 glycoprotein 1 IgA Qn (S) 34.2 U/mL High <20.0 [facility] Comment on above: Result Comment: Elev [...] By: #### 3 084-1 #### KADE Sandra ([id number]) [facility] ([facility]) [address] [place] [address] Beta 2 glycoprotein 1 IgG Qn (S) 2.6 U/mL Normal <20.0 [facility] Comment on above: Result Comment: Elev ated levels of IgG anti-Beta 2 Glycoprotein-I on 2 occasions at least 12 weeks apart are laboratory criteria for anti-phospholipid syndrome according to an international consensus (J Thromb Haemost 2006 4:295). Performed By: #### 3 084-1 #### KADE Sandra ([id number]) [facility] ([facility]) [address] [place] [address] Beta 2 glycoprotein 1 IgM Qn (S) 27.5 U/mL High <20.0 [facility] Comment on above: Result Comment: Elev [...] By: #### 3 084-1 #### KADE Sandra ([id number]) [facility] ([facility]) [address] [place] [address] 81577 C reactive proteinon 024 CRP [Mass/Vol] mg/L Normal <1.00 [facility] Comment on above: Performed By: #### 1 988-5 #### KADE Sandra ([id number]) [facility] ([facility]) [address] [place] [address] 447[address] Calcidiolon 11-28-2023 25-hydroxyvitamin D3 [Mass/Vol] 65 ng/mL Normal 30-100 [facility] Comment on above: Order Comment: Defic iency: < 20 ng/ml Insufficiency: 20-29 ng/ml Sufficiency: 30-100 ng/ml This assay accurately quantifies the sum of Vitamin D3, 25-Hydroxy and Vitamin D2,25-Hydroxy. Performed By: #### 1 989-3 #### KADE Sandra ([id number]) [facility] ([facility]) [address] [place] [address] 99562 Cardiolipin Ab IA Qn (S)on 0 11-28-2023 Cardiolipin IgA Qn 39.0 APL U/mL High <20.0 [facility] Comment on above: Result Comment: Elev ated levels of IgA anti-cardiolipin have not been included in the laboratory criteria for anti-phospholipid syndrome according to an international consensus (J Thromb Haemost 2006 4:295). It may be helpful in identifying subgroups of patients at risk for specific clinical manifestations of anti-phospholipid syndrome. Performed By: #### 3 180-7 #### KADE Sandra ([id number]) [facility] ([facility]) [address] [place] [address] 12504 Cardiolipin IgG IA Qn (S) 2.4 GPL U/mL Normal <20.0 [facility] Comment on above: Result Comment: Elev ated levels of IgG anti-cardiolipin on 2 occasions at least 12 weeks apart are laboratory criteria for anti-phospholipid syndrome according to an international consensus (J Thromb Haemost 2006 4:295). Performed By: #### 3 180-7 #### KADE Sandra ([id number]) [facility] ([facility]) [address] [place] [address] 00389 Cardiolipin IgM IA Qn (S) 27.7 MPL U/mL High <20.0 [facility] Comment on above: Result Comment: Elev [...] By: #### 3 180-7 #### KADE Sandra ([id number]) [facility] ([facility]) [address] [place] [address] 25668 Complement C3on 11-28-2023 Complement C3 [Mass/Vol] 101 mg/dL Normal 87-200 [facility] Comment on above: Performed By: #### 4 485-9 #### KADE Sandra ([id number]) [facility] ([facility]) [address] [place] [address]6572 Complement C4on 11-28-2023 Complement C4 [Mass/Vol] 14 mg/dL Normal 10-50 [facility] Comment on above: Performed By: #### 4 498-2 #### KADE Sandra ([id number]) [facility] ([facility]) [address] [place] [address] 21102 Cyclic citrullinated peptide Ab.IgGon 11-28-2023 Cyclic citrullinated peptide IgG Qn <1 Normal <3 [facility] Comment on above: Order Comment: THE [...] By: #### 3 3935-8 #### KADE Sandra ([id number]) [facility] ([facility]) [address] [place] [address] ESR Westergren method (Bld) [Velocity]on 11-28-2023 ESR (Bld) [Velocity] mm/h Normal 0-20 [facility] Comment on above: Performed By: #### 4 537-7 #### KADE Sandra ([id number]) [facility] ([facility]) [address] [place], [place] [address] Extractable nuclear Ab panel (S)on 11-28-2023 Centromere protein B Ab Qn (S) <0.2 Normal <1.0 [facility] Comment on above: Result Comment: < 1. 0 = NEGATIVE >=1.0 = POSITIVE Performed By: #### 3 084-1 #### KADE Sandra ([id number]) [facility] ([facility]) [address] [place] [address] 04656 Chromatin Ab Qn <0.2 Normal <1.0 [facility] Comment on above: Result Comment: < 1. 0 = NEGATIVE >=1.0 = POSITIVE Performed By: #### 3 084-1 #### KADE Sandra ([id number]) [facility] ([facility]) [address] [place] [address] 35117 DNA double strand Ab Qn (S) 1.0 [IU]/mL Normal <5.0 [facility] Comment on above: Result Comment: NEGA TIVE: <= 4 IU/ML EQUIVOCAL: 5- 9 IU/ML POSITIVE: >=10 IU/ML Performed By: #### 3 084-1 #### KADE Sandra ([id number]) [facility] ([facility]) [address] [place] [address] 76291 Meryl-1 extractable nuclear Ab IA Ql (S) <0.2 Normal <1.0 [facility] Comment on above: Result Comment: < 1. 0 = NEGATIVE >=1.0 = POSITIVE Performed By: #### 3 084-1 #### KADE Sandra ([id number]) [facility] ([facility]) [address] [place] [address] 32596 Ribonucleoprotein extractable nuclear Ab IA Qn (S) 0.6 AI Normal <1.0 [facility] Comment on above: Result Comment: < 1. 0 = NEGATIVE >=1.0 = POSITIVE Performed By: #### 3 084-1 #### KADE Sandra ([id number]) [facility] ([facility]) [address] [place] [address] 63945 Ribosomal P Ab Qn (S) <0.2 Normal <1.0 [facility] Comment on above: Result Comment: < 1. 0 = NEGATIVE >=1.0 = POSITIVE Performed By: #### 3 084-1 #### KADE Sandra ([id number]) [facility] ([facility]) [address] [place] [address] 59721 SCL-70 extractable nuclear Ab IA Ql (S) <0.2 Normal <1.0 [facility] Comment on above: Result Comment: < 1. 0 = NEGATIVE >=1.0 = POSITIVE Performed By: #### 3 084-1 #### AKDE Sandra ([id number]) [facility] ([facility]) [address] [place] [address] 41901 Sjogrens syndrome-A extractable nuclear Ab IA Qn (S) <0.2 Normal <1.0 [facility] Comment on above: Result Comment: < 1. 0 = NEGATIVE >=1.0 = POSITIVE Performed By: #### 3 084-1 #### KADE Sandra ([id number]) [facility] ([facility]) [address] [place] [address] 66391 Sjogrens syndrome-B extractable nuclear Ab IA Qn (S) <0.2 Normal <1.0 [facility] Comment on above: Result Comment: < 1. 0 = NEGATIVE >=1.0 = POSITIVE Performed By: #### 3 084-1 #### KADE Sandra ([id number]) [facility] ([facility]) [address] [place] [address] 40228 Dias extractable nuclear Ab IA Qn (S) <0.2 Normal <1.0 [facility] Comment on above: Result Comment: < 1. 0 = NEGATIVE >=1.0 = POSITIVE Performed By: #### 3 084-1 #### KADE Sandra ([id number]) [facility] ([facility]) [address] [place] [address] 92485 Dias extractable nuclear Ab+Ribonucleoprotein extractable nuclear Ab IA Ql (S) <0.2 Normal <1.0 [facility] Comment on above: Result Comment: < 1. 0 = NEGATIVE >=1.0 = POSITIVE Performed By: #### 3 084-1 #### KDAE Sandra ([id number]) [facility] ([facility]) [address] [place] [address] 89499 Nuclear Abon 11-28-2023 Nuclear Ab Hep2 substrate Ql (S) Negative Normal Negative [facility] Comment on above: Result Comment: The Antinuclear Antibody (JERZY) test was performed using indirect immunofluorescence assay with HEp-2 cells slide. Performed By: #### 3 084-1 #### KADE Sandra ([id number]) [facility] ([facility]) [address] [place] [address] 08359 Proteinon 11-28-2023 Protein [Mass/Vol] 6.8 g/dL Normal 6.4-8.2 [facility] Comment on above: Performed By: #### 2 885-2 #### KADE Sandra ([id number]) [facility] ([facility]) [address] [place] [address] 24853 Rheumatoid factoron 11-28-19 Rheumatoid factor Nephelometry Qn (S) <10 Normal 0-15 [facility] Comment on above: Performed By: #### 1 5205-8 #### KADE Sandra ([id number]) [facility] ([facility]) [address] [place] [address] 95368 SERUM PROTEIN ELECTROPHORESI S + IMMUNOFIXATIONon 11-28-2023 Albumin [Mass/Vol] 4.4 g/dL Normal 3.4-5.0 [facility] Comment on above: Performed By: #### 3 084-1 #### KADE Sandra ([id number]) [facility] ([facility]) [address] [place] [address] 78004 ALPHA 1 GLOBULIN 0.3 g/dL Normal 0.2-0.6 [facility] Comment on above: Performed By: #### 3 084-1 #### KADE Sandra ([id number]) [facility] ([facility]) [address] [place] [address] 02563 ALPHA 2 GLOBULIN 0.5 g/dL Normal 0.4-1.1 [facility] Comment on above: Performed By: #### 3 084-1 #### KADE Sadnra ([id number]) [facility] ([facility]) [address] [place] [address] 00403 BETA GLOBULIN 0.6 g/dL Normal 0.5-1.2 [facility] Comment on above: Performed By: #### 3 084-1 #### KADE Sandra ([id number]) [facility] ([facility]) [address] [place] [address] 78447 GAMMA GLOBULIN 1.0 g/dL Normal 0.5-1.4 [facility] Comment on above: Performed By: #### 3 084-1 #### KADE Sandra ([id number]) [facility] ([facility]) [address] [place] [address] 34806 IMMUNOFIXATION COMMENT Detected Normal [facility] Comment on above: Performed By: #### 3 084-1 #### KADE Sandra ([id number]) [facility] ([facility]) [address] [place], [place] [address] PATH REVIEW - SERUM IMMUNOFIXATION SEE COMMENT [facility] Comment on above: Result Comment: Revi ewed and approved by ALICE MORALES on 12/03/23 at 8:41 PM. Performed By: #### 3 084-1 #### KADE Sandra ([id number]) [facility] ([facility]) [address] [place], [place] [address] PATH REVIEW-SERUM PROTEIN ELECTROPHORESIS SEE COMMENT [facility] Comment on above: Result Comment: Revi ewed and approved by ALICE MORALES on 12/03/23 at 8:41 PM. Performed By: #### 3 084-1 #### KADE Sandra ([id number]) [facility] ([facility]) [address] [place] [address] PROTEIN ELECTROPHORESIS COMMENT Normal. [facility] Comment on above: Performed By: #### 3 084-1 #### KADE Sandra ([id number]) [facility] ([facility]) [address] [place], [place] [address] Urateon 11-28-2023 Urate [Mass/Vol] 1.8 mg/dL Low 2.3-6.7 [facility] Comment on above: Result Comment: Linda puncture immediately after or during the administration of Metamizole may lead to falsely low results. Testing should be performed immediately prior to Metamizole dosing. Performed By: #### 3 084-1 #### KADE Sandra ([id number]) [facility] ([facility]) [address] [address] [place], [place] [id number] XR HAND 3+ VIEWS BILATERALon 11-28-2023 XR HAND 3+ VIEWS BILATERAL Interpreted By: Daniel Martins, STUDY: XR HAND 3+ VIEWS BILATERAL; ; 11/28/2023 3:12 pm INDICATION: Signs/Symptoms:r/o erosiosn or calcinosis. COMPARISON: None. ACCESSION NUMBER(S): [id number] ORDERING CLINICIAN: JOSEPH SORIANO FINDINGS: Bilateral hands, three views of each There is no fracture. There is no dislocation. There are no degenerative changes. There is no erosion or chondrocalcinosis. There is no soft tissue abnormality seen. IMPRESSION: Normal radiographs of the hands MACRO: None Signed by: Daniel Martins 11/29/2023 8:41 PM Dictation workstation: [id number] [facility] XR SACROILIAC JOINTS 3+ VIEW Son 11-28-2023 XR SACROILIAC JOINTS 3+ VIEWS Interpreted By: Daniel Martins, STUDY: XR SACROILIAC JOINTS 3+ VIEWS; ; 11/28/2023 3:12 pm INDICATION: Signs/Symptoms:r/o erosions or sacroilitis. COMPARISON: None. ACCESSION NUMBER(S): [id number] ORDERING CLINICIAN: JOSEPH SORIANO FINDINGS: SI joints, three views There is no sclerosis or erosions in the SI joints. No degenerative change seen. There is no fracture. There is no dislocation. There is no lytic or sclerotic lesion. There is no soft tissue abnormality seen. IMPRESSION: Normal radiographs of the sacroiliac joints MACRO: None Signed by: Daniel Martins 11/29/2023 8:41 PM Dictation workstation: [id number] [facility] Anoscopyon 10-09-2023 Denisse Chiang MD 10/09/2023 2:20 PM Anoscopy Date/Time: 10/09/2023 1:37 PM Performed by: Denisse Chiang MD Authorized by: Denisse Chiang MD Consent: Consent obtained: Verbal Consent given by: Patient Procedure details: Internal hemorrhoids: yes (Right and left posterior, large, non-bleeding and non-prolapsing on exam today) Post-procedure details: Procedure completion: [facility] Work Phone: [facility] Work Phone: CHEMISTRYOrdered By: SYSTEM SYSTEM [...] on 08-29-2022 Cholesterol [Mass/Vol] 133 mg/dL 140-200 [facility] Comment on above: Chol less than 200 m g/dl low riskChol 201-239 mg/dl borderline riskChol 240 mg/dl and greater high risk Cholesterol in LDL Calc [Mas s/Vol]Ordered By: Tyler Roach on 08-29-2022 Cholesterol in LDL [Mass/Vol] 78 mg/dL 0-100 [facility] Comment on above: LDL ATP III CLASSIFI CATIONLDL less than 100 mg/dL OptimalLDL 100-129 mg/dL Near or above optimalLDL 130-159 mg/dL Borderline highLDL 160-189 mg/dL HighLDL greater than 189 mg/dL Very high Cholesterol in VLDL Calc [Ma ss/Vol]Ordered By: Tyler Roach on 08-29-2022 Cholesterol in VLDL [Mass/Vol] 12 mg/dL [facility] Serum or plasma high density lipoprotein (HDL) cholesterol measurementOrdered By: Tyler Roach on 08-29-2022 Cholesterol in HDL [Mass/Vol] 42 mg/dL 35-85 [facility] Comment on above: HDL CHOL ATP-III CLA SSIFICATION Cardiovascular RiskHDL > or equal to 60 mg/dL LOWHDL < 40 mg/dL HIGH Serum or plasma total choles terol/high density lipoprotein (HDL) cholesterol mass ratOrdered By: Tyler Roach on 08-29-2022 Cholesterol.total/Chol esterol in HDL [Mass ratio] 3.2 {ratio} <5.0 [facility] Thyrotropin [Units/volume] i n Serum or PlasmaOrdered By: Tyler Roach on 08-29-2022 TSH Qn 0.19 m[IU]/L 0.45-5.33 [facility] Thyroxine (T4) free [Mass/vo lume] in Serum or PlasmaOrdered By: Tyler Roach on 08-29-2022 Free T4 [Mass/Vol] 0.88 ng/dL 0.61-1.12 [facility] Triglyceride [Mass/volume] i n Serum or PlasmaOrdered By: Tyler Roach on 08-29-2022 Triglyceride [Mass/Vol] 63 mg/dL 0-149 [facility] Comment on above: TRIG ATP III CLASSIF ICATIONTRIG less than 150 mg/dL NormalTRIG 150-199 mg/dL Borderline highTRIG 200-500 mg/dL High TRIG greater than 500 mg/dL Very highStandard traceable to the Center for Disease Conrtrol and Prevention (CDC) test method. Vitamin D+Metabolites [Mass/ volume] in Serum or PlasmaOrdered By: Tyler Roach on 08-29-2022 Vitamin D+Metabolites [Mass/Vol] 16.0 ng/mL 30-100 [facility] Comment on above: VITAMIN D STATUS 25( [place])VITAMIN D RANGE (ng/mL) Deficient <20 Insufficient 20 to <30Sufficient 30 to 100Reference: John MF,Pasha NC, Benson LOYD, et al. Evaluation,treatment, and prevention of vitamin D deficiency; an Endocrine Society clinical practice guideline. JCEM. 2010; 96(7):1911-30. ACETAMINOPHENon 08-28-2022 Acetaminophen [Mass/Vol] ug/mL Critically low 10.0-30.0 [facility] Comment on above: Performed By: #### S ALYC, ACET #### [facility] [address] [address] [address] Deepak August AMYLASEon 08-28-2022 Amylase [Catalytic activity/Vol] 33 U/L Normal 25-115 [facility] Comment on above: Performed By: #### B MP, LIVER, LIPA, SHERRI #### [facility] [address] [address] [address] Deepak August CBC AUTO DIFFon 08-28-2022 BASO # 0.1 103/ul Normal 0.0-0.1 [facility] Comment on above: Performed By: #### B MP, LIVER, LIPA, SHERRI #### [facility] [address] [place] [address] Dr. Deepak August Basophils/100 WBC (Bld) 0.5 % Normal 0.2-2.0 [facility] Comment on above: Performed By: #### B MP, LIVER, LIPA, SHERRI #### [facility] [address] [place] [address] Dr. Deepak August EO # 0.1 103/ul Normal 0.0-0.7 [facility] Comment on above: Performed By: #### B MP, LIVER, LIPA, SHERRI #### [facility] [address] [place] [address] Dr. Deepak August Eosinophils/100 WBC (Bld) 1.1 % Normal 0.9-7.0 [facility] Comment on above: Performed By: #### B MP, LIVER, LIPA, SHERRI #### [facility] [address] [place] [address] Dr. Deepak August Erythrocyte distribution width (RBC) [Ratio] 13.3 % Normal 11.0-15.0 [facility] Comment on above: Performed By: #### B MP, LIVER, LIPA, SHERRI #### [facility] [address] [place] [address] Dr. Deepak August Hematocrit (Bld) [Volume fraction] 43.5 % Normal 36.0-48.0 [facility] Comment on above: Performed By: #### B MP, LIVER, LIPA, SHERRI #### [facility] [address] [place] [address] Dr. Deepak August Hemoglobin (Bld) [Mass/Vol] 14.7 g/dL Normal 12.0-16.0 [facility] Comment on above: Performed By: #### B MP, LIVER, LIPA, SHERRI #### [facility] [address] [place] [address] Dr. Deepak August IG # 0.04 10e3/ul Critically high 0.00-0.03 [facility] Comment on above: Performed By: #### B MP, LIVER, LIPA, SHERRI #### [facility] [address] [place] [address] Dr. Deepak August IG % 0.3 % Normal 0.0-0.5 [facility] Comment on above: Performed By: #### B MP, LIVER, LIPA, SHERRI #### [facility] [address] [place] [address] Dr. Deepak August LYMPH # 1.4 103/ul Normal 1.2-3.8 [facility] Comment on above: Performed By: #### B MP, LIVER, LIPA, SHERRI #### [facility] [address] [place] [address] Dr. Deepak August Lymphocytes/100 WBC (Bld) 11.2 % Critically low 20.5-60.0 [facility] Comment on above: Performed By: #### B MP, LIVER, LIPA, SHERRI #### [facility] [address] [place] [address] Dr. Deepak August MANUAL DIFF REQ NO Normal [facility] Comment on above: Performed By: #### B MP, LIVER, LIPA, SHERRI #### [facility] [address] [place] [address] Dr. Deepak August MCH (RBC) [Entitic mass] 29.5 pg Normal 26.7-34.0 [facility] Comment on above: Performed By: #### B MP, LIVER, LIPA, SHERRI #### [facility] [address] [place] [address] Dr. Deepak August MCHC (RBC) [Mass/Vol] 33.8 g/dL Normal 29.9-35.2 [facility] Comment on above: Performed By: #### B MP, LIVER, LIPA, SHERRI #### [facility] [address] [place] [address] Dr. Deepak August MCV (RBC) [Entitic vol] 87.2 fL Normal 81.0-99.0 [facility] Comment on above: Performed By: #### B MP, LIVER, LIPA, SHERRI #### [facility] [address] [place] [address] Dr. Deepak August MONO # 0.7 103/ul Normal 0.3-0.8 [facility] Comment on above: Performed By: #### B MP, LIVER, LIPA, SHERRI #### [facility] [address] [place] [address] Dr. Deepak August Monocytes/100 WBC (Bld) 5.8 % Normal 1.7-12.0 [facility] Comment on above: Performed By: #### B MP, LIVER, LIPA, SHERRI #### [facility] [address] [place] [address] Dr. Deepak August NEUT # 10.0 103/ul Critically high 1.4-6.5 [facility] Comment on above: Performed By: #### B MP, LIVER, LIPA, SHERRI #### [facility] [address] [place] [address] Dr. Deepak August Neutrophils/100 WBC (Bld) 81.1 % Critically high 43.0-75.0 [facility] Comment on above: Performed By: #### B MP, LIVER, LIPA, SHERRI #### [facility] [address] [place] [address] Dr. Deepak August Platelet mean volume (Bld) [Entitic vol] 10.1 fL Normal 9.5-13.5 [facility] Comment on above: Performed By: #### B MP, LIVER, LIPA, SHERRI #### [facility] [address] [place] [address] Dr. Deepak August PLT 390 103/ul Normal 150-450 [facility] Comment on above: Performed By: #### B MP, LIVER, LIPA, SHERRI #### [facility] [address] [place] [address] Dr. Deepak August RBC 4.99 106/ul Normal 4.20-5.40 [facility] Comment on above: Performed By: #### B MP, LIVER, LIPA, SHERRI #### [facility] [address] [place] [address] Dr. Deepak August WBC 12.4 103/ul Critically high 4.0-11.0 [facility] Comment on above: Performed By: #### B MP, LIVER, LIPA, SHERRI #### [facility] [address] [place] [address] Dr. Deepak August DRUG SCREEN RAPID (URINE)on 08-28-2022 AMP Negative Normal NEGATIVE [facility] Comment on above: Performed By: #### B MP, LIVER, LIPA, SHERRI #### [facility] [address] [place] [address] Dr. Deepak August BAR Negative Normal NEGATIVE [facility] Comment on above: Performed By: #### B MP, LIVER, LIPA, SHERRI #### [facility] [address] [place] [address] Dr. Deepak August BUP Negative Normal NEGATIVE [facility] Comment on above: Performed By: #### B MP, LIVER, LIPA, SHERRI #### [facility] [address] [place] [address] Dr. Deepak August BZO Negative Normal NEGATIVE [facility] Comment on above: Performed By: #### B MP, LIVER, LIPA, SHERRI #### [facility] [address] [place] [address] Dr. Deepak August VERA Negative Normal NEGATIVE [facility] Comment on above: Performed By: #### B MP, LIVER, LIPA, SHERRI #### [facility] [address] [place] [address] Dr. Deepak August CUT-OFFS SEE BELOW Normal [facility] Comment on above: Result Comment: [...] #### B MP, LIVER, LIPA, SHERRI #### [facility] [address] [address] [address] Deepak August DRUG CUT HEADER DRUG CLASS TEST SYST EM CUT-OFF CONCENTRATIONS ARE FOLLOWS: Normal [facility] Comment on above: Performed By: #### B MP, LIVER, LIPA, SHERRI #### [facility] [address] [address] [address] Deepak August mAMP Negative Normal NEGATIVE [facility] Comment on above: Performed By: #### B MP, LIVER, LIPA, SHERRI #### [facility] [address] [place] [address] Dr. Deepak August MTD Negative Normal NEGATIVE [facility] Comment on above: Performed By: #### B MP, LIVER, LIPA, SHERRI #### [facility] [address] [place] [address] Dr. Deepak August OPI Negative Normal NEGATIVE [facility] Comment on above: Performed By: #### B MP, LIVER, LIPA, SHERRI #### [facility] [address] [place] [address] Dr. Deepak August OXY Negative Normal NEGATIVE [facility] Comment on above: Performed By: #### B MP, LIVER, LIPA, SHERRI #### [facility] [address] [place] [address] Dr. Deepak August PCP Negative Normal NEGATIVE [facility] Comment on above: Performed By: #### B MP, LIVER, LIPA, SHERRI #### [facility] [address] [place] [address] Dr. Deepak August PPX Negative Normal NEGATIVE [facility] Comment on above: Performed By: #### B MP, LIVER, LIPA, SHERRI #### [facility] [address] [place] [address] Dr. Deepak August TCA Positive Abnormal NEGATIVE [facility] Comment on above: Performed By: #### B MP, LIVER, LIPA, SHERRI #### [facility] [address] [address] [address] Deepak August THC Positive Abnormal NEGATIVE [facility] Comment on above: Performed By: #### B MP, LIVER, LIPA, SHERRI #### [facility] [address] [address] [address] Deepak MCCABE URINE PROFILEon 3 Bilirubin Ql (U) Negative Normal NEGATIVE [facility] Comment on above: Performed By: #### B MP, LIVER, LIPA, SHERRI #### [facility] [address] [place] [address] Dr. Deepak August Clarity (U) CLEAR Normal CLEAR [facility] Comment on above: Performed By: #### B MP, LIVER, LIPA, SHERRI #### [facility] [address] [place] [address] Dr. Deepak August Color (U) YELLOW Normal YELLOW [facility] Comment on above: Performed By: #### B MP, LIVER, LIPA, SHERRI #### [facility] [address] [place] [address] Dr. Deepak HAMMERAHRobert A micrscopic examination will be performed if indicated. Normal [facility] Comment on above: Performed By: #### B MP, LIVER, LIPA, SHERRI #### [facility] [address] [place] [address] Dr. Deepak August Glucose Ql (U) Negative Normal NEGATIVE [facility] Comment on above: Performed By: #### B MP, LIVER, LIPA, SHERRI #### [facility] [address] [place] [address] Dr. Deepak August Hemoglobin Ql (U) Negative Normal NEGATIVE [facility] Comment on above: Performed By: #### B MP, LIVER, LIPA, SHERRI #### [facility] [address] [place] [address] Dr. Deepak August Ketones Ql (U) 15 mg/dl Abnormal NEGATIVE [facility] Comment on above: Performed By: #### B MP, LIVER, LIPA, SHERRI #### [facility] [address] [place] [address] Dr. Deepak August LEUKOCYTES Negative Normal NEGATIVE [facility] Comment on above: Performed By: #### B MP, LIVER, LIPA, SHERRI #### [facility] [address] [address] [address] Deepak August Nitrite Ql (U) Negative Normal NEGATIVE [facility] Comment on above: Performed By: #### B MP, LIVER, LIPA, SHERRI #### [facility] [address] [address] [address] Deepak August pH (U) 6.0 [pH] Normal 5-9 [facility] Comment on above: Performed By: #### B MP, LIVER, LIPA, SHERRI #### [facility] [address] [address] [address] Deepak August SPEC GRAVITY 1.020 Normal 1.005-<=1.02 5 [facility] Comment on above: Performed By: #### B MP, LIVER, LIPA, SHERRI #### [facility] [address] [place] [address] Dr. Deepak August UA PROTEIN Negative Normal NEGATIVE/ TRACE [facility] Comment on above: Performed By: #### B MP, LIVER, LIPA, SHERRI #### [facility] [address] [address] [address] Deepak August UR MICRO IND NOT INDICATED Normal [facility] Comment on above: Performed By: #### B MP, LIVER, LIPA, SHERRI #### [facility] [address] [address] [address] Deepak August Urobilinogen Qn (U) 0.2 {Jerod'U}/dL Normal 0.2 - 1. 0 [facility] Comment on above: Performed By: #### B MP, LIVER, LIPA, SHERRI #### [facility] [address] [place] [address] Dr. Deepak August ETHANOL (BLD ALC)on 08-29-19 ALC NOTE NOTE: 80 mg/dl is th e legal limit for a blood alcohol level Normal [facility] Comment on above: Performed By: #### B MP, LIVER, LIPA, SHERRI #### [facility] [address] [place], [place] [id number] Dr. Deepak August Ethanol [Mass/Vol] mg/dL Normal [facility] Comment on above: Performed By: #### B MP, LIVER, LIPA, SHERRI #### [facility] [address] [place] [address] Dr. Deepak August LACTATE/LACTIC ACIDon 2022 Lactate [Moles/Vol] 1.4 mmol/L Normal 0.4-2.0 [facility] Comment on above: Performed By: #### B MP, LIVER, LIPA, SHERRI #### [facility] [address] [place] [address] Dr. Deepak August LIPASEon 08-28-2022 Lipase [Catalytic activity/Vol] 47.0 U/L Critically low 73.0-393.0 [facility] Comment on above: Performed By: #### B MP, LIVER, LIPA, SHERRI #### [facility] [address] [place] [address] Dr. Deepak August LIVER PROFILEon 08-28-2022 Albumin [Mass/Vol] 4.2 g/dL Normal 3.4-5.0 [facility] Comment on above: Performed By: #### B MP, LIVER, LIPA, SHERRI #### [facility] [address] [place] [address] Dr. Deepak August Albumin/Globulin [Mass ratio] 1.2 {ratio} Normal [facility] Comment on above: Performed By: #### B MP, LIVER, LIPA, SHERRI #### [facility] [address] [place] [address] Dr. Deepak August ALP [Catalytic activity/Vol] 67 U/L Normal 46-116 [facility] Comment on above: Performed By: #### B MP, LIVER, LIPA, SHERRI #### [facility] [address] [place] [address] Dr. Deepak August ALT [Catalytic activity/Vol] 21 U/L Normal 14-59 [facility] Comment on above: Performed By: #### B MP, LIVER, LIPA, SHERRI #### [facility] [address] [place] [address] Dr. Deepak August AST [Catalytic activity/Vol] 12 U/L Critically low 15-37 [facility] Comment on above: Performed By: #### B MP, LIVER, LIPA, SHERRI #### [facility] [address] [place] [address] Dr. Deepak August BILI, CONJUGATED 0.3 mg/dL Critically high 0.0-0.2 [facility] Comment on above: Performed By: #### B MP, LIVER, LIPA, SHERRI #### [facility] [address] [place] [address] Dr. Deepak August Bilirubin [Mass/Vol] 1.4 mg/dL Critically high 0.2-1.0 [facility] Comment on above: Performed By: #### B MP, LIVER, LIPA, SHERRI #### [facility] [address] [place] [address] Dr. Deepak August Globulin (S) [Mass/Vol] 3.6 g/dL Normal [facility] Comment on above: Performed By: #### B MP, LIVER, LIPA, SHERRI #### [facility] [address] [place] [address] Dr. Deepak August Protein [Mass/Vol] 7.8 g/dL Normal 6.4-8.2 [facility] Comment on above: Performed By: #### B MP, LIVER, LIPA, SHERRI #### [facility] [address] [place] [address] Dr. Deepak August URon 08-28-2022 , QUAL Negative Normal NEGATIVE [facility] Comment on above: Performed By: #### B MP, LIVER, LIPA, SHERRI #### [facility] [address] [place] [address] Dr. Deepak August PROF CHEM 8 (BAS METB)on Anion gap [Moles/Vol] 13.5 mmol/L Normal [facility] Comment on above: Performed By: #### B MP, LIVER, LIPA, SHERRI #### [facility] [address] [place] [address] Dr. Deepak August Calcium [Mass/Vol] 9.0 mg/dL Normal 8.5-10.1 [facility] Comment on above: Performed By: #### B MP, LIVER, LIPA, SHERRI #### [facility] [address] [address] [address] Deepak August Chloride [Moles/Vol] 104 mmol/L Normal 98-107 [facility] Comment on above: Performed By: #### B MP, LIVER, LIPA, SHERRI #### [facility] [address] [address] [address] Deepak August CO2 [Moles/Vol] 23.8 mmol/L Normal 21.0-32.0 [facility] Comment on above: Performed By: #### B MP, LIVER, LIPA, SHERRI #### [facility] [address] [address] [address] Deepak August Creatinine [Mass/Vol] 0.82 mg/dL Normal 0.55-1.02 [facility] Comment on above: Performed By: #### B MP, LIVER, LIPA, SHERRI #### [facility] [address] [address] [address] Deepak August EGFR-AF MAURITANIAN >60 Normal >=60 [facility] Comment on above: Performed By: #### B MP, LIVER, LIPA, SHERIR #### [facility] [address] [address] [address] Deepak August EGFR-NON AF MAURITANIAN >60 Normal >=60 [facility] Comment on above: Performed By: #### B MP, LIVER, LIPA, SHERRI #### [facility] [address] [address] [address] Deepak August Glucose [Mass/Vol] 119 mg/dL Critically high 74-106 [facility] Comment on above: Performed By: #### B MP, LIVER, LIPA, SHERRI #### [facility] [address] [address] [address] Deepak August Potassium [Moles/Vol] 3.3 mmol/L Critically low 3.5-5.1 [facility] Comment on above: Performed By: #### B MP, LIVER, LIPA, SHERRI #### [facility] [address] [address] [address] Deepak August Sodium [Moles/Vol] 138 mmol/L Normal 136-145 [facility] Comment on above: Performed By: #### B MP, LIVER, LIPA, SHERRI #### [facility] [address] [place] [address] Dr. Deepak August Urea nitrogen [Mass/Vol] 8.0 mg/dL Normal 7.0-18.0 [facility] Comment on above: Performed By: #### B MP, LIVER, LIPA, SHERRI #### [facility] [address] [place] [address] Dr. Deepak August Urea nitrogen/Creatinine [Mass ratio] 9.8 mg/mg Normal [facility] Comment on above: Performed By: #### B MP, LIVER, LIPA, SHERRI #### [facility] [address] [place] [address] Dr. Deepak August SALICYLATEon 08-28-2022 SALICYLATE <2.8 Normal <=19.9 [facility] Comment on above: Performed By: #### S ALYC, ACET #### [facility] [address] [place] [address] Dr. Deepak August XR CHEST 1 Von [...] by: STELLA MCDOWELL Date: 2022-08-28 10:31 Normal [facility] FERRITINon 06-10-2022 Ferritin [Mass/Vol] 56.0 ng/mL Normal 6.2-137.0 [facility] Comment on above: Performed By: #### B MP, LIVER, LIPA, SHERRI #### [facility] [address] [place] [address] Dr. Deepak August MAGNESIUMon 06-10-2022 Magnesium [Mass/Vol] 2.2 mg/dL Normal 1.8-2.4 [facility] Comment on above: Performed By: #### K , MG, PHOS #### [facility] [address] [place] [address] Dr. Deepak August PHOSPHORUSon 06-10-2022 Phosphate [Mass/Vol] 3.6 mg/dL Normal 2.6-4.7 [facility] Comment on above: Performed By: #### K , MG, PHOS #### [facility] [address] [place] [address] Dr. Deepak August POTASSIUMon 06-10-2022 Potassium [Moles/Vol] 3.8 mmol/L Normal 3.5-5.1 [facility] Comment on above: Performed By: #### K , MG, PHOS #### [facility] [address] [place] [address] Dr. Deepak August VIT B12 AND FOLATEon 023 Cobalamin (Vitamin B12) [Mass/Vol] 278.0 pg/mL Normal 193.0-986.0 [facility] Comment on above: Performed By: #### B MP, LIVER, LIPA, SHERRI #### [facility] [address] [place] [address] Dr. Deepak August FOLATE 7.40 ng/mL Critically low 8.60-58.90 [facility] Comment on above: Performed By: #### B MP, LIVER, LIPA, SHERRI #### [facility] [address] [place] [address] Dr. Deepak August INSULINon 02-13-2022 Insulin 16.9 uIU/mL Normal 2.6-24.9 [facility] Comment on above: Performed By: #### B MP, LIVER, LIPA, SHERRI #### [facility] [address] [place] [address] Dr. Deepak August CBC AUTO DIFFon 02-11-2022 BASO # 0.1 103/ul Normal 0.0-0.1 [facility] Comment on above: Performed By: #### B MP, LIVER, LIPA, SHERRI #### [facility] [address] [place] [address] Dr. Deepak August Basophils/100 WBC (Bld) 1.0 % Normal 0.2-2.0 [facility] Comment on above: Performed By: #### B MP, LIVER, LIPA, SHERRI #### [facility] [address] [place] [address] Dr. Deepak August EO # 0.4 103/ul Normal 0.0-0.7 [facility] Comment on above: Performed By: #### B MP, LIVER, LIPA, SHERRI #### [facility] [address] [place] [address] Dr. Deepak August Eosinophils/100 WBC (Bld) 5.4 % Normal 0.9-7.0 [facility] Comment on above: Performed By: #### B MP, LIVER, LIPA, SHERRI #### [facility] [address] [place] [address] Dr. Deepak August Erythrocyte distribution width (RBC) [Ratio] 13.0 % Normal 11.0-15.0 [facility] Comment on above: Performed By: #### B MP, LIVER, LIPA, SHERRI #### [facility] [address] [place] [address] Dr. Deepak August Hematocrit (Bld) [Volume fraction] 40.7 % Normal 36.0-48.0 [facility] Comment on above: Performed By: #### B MP, LIVER, LIPA, SHERRI #### [facility] [address] [place] [address] Dr. Deepak August Hemoglobin (Bld) [Mass/Vol] 13.4 g/dL Normal 12.0-16.0 [facility] Comment on above: Performed By: #### B MP, LIVER, LIPA, SHERRI #### [facility] [address] [place] [address] Dr. Deepak August IG # 0.02 10e3/ul Normal 0.00-0.03 [facility] Comment on above: Performed By: #### B MP, LIVER, LIPA, SHERRI #### [facility] [address] [place] [address] Dr. Deepak August IG % 0.3 % Normal 0.0-0.5 [facility] Comment on above: Performed By: #### B MP, LIVER, LIPA, SHERRI #### [facility] [address] [place] [address] Dr. Deepak August LYMPH # 1.6 103/ul Normal 1.2-3.8 [facility] Comment on above: Performed By: #### B MP, LIVER, LIPA, SHERRI #### [facility] [address] [place] [address] Dr. Deepak August Lymphocytes/100 WBC (Bld) 23.1 % Normal 20.5-60.0 [facility] Comment on above: Performed By: #### B MP, LIVER, LIPA, SHERRI #### [facility] [address] [place] [address] Dr. Deepak August MANUAL DIFF REQ NO Normal [facility] Comment on above: Performed By: #### B MP, LIVER, LIPA, SHERRI #### [facility] [address] [place] [address] Dr. Deepak August MCH (RBC) [Entitic mass] 28.6 pg Normal 26.7-34.0 [facility] Comment on above: Performed By: #### B MP, LIVER, LIPA, SHERRI #### [facility] [address] [place] [address] Dr. Deepak August MCHC (RBC) [Mass/Vol] 32.9 g/dL Normal 29.9-35.2 [facility] Comment on above: Performed By: #### B MP, LIVER, LIPA, SHERRI #### [facility] [address] [place] [address] Dr. Deepak August MCV (RBC) [Entitic vol] 86.8 fL Normal 81.0-99.0 [facility] Comment on above: Performed By: #### B MP, LIVER, LIPA, SHERRI #### [facility] [address] [place] [address] Dr. Deepak August MONO # 0.5 103/ul Normal 0.3-0.8 [facility] Comment on above: Performed By: #### B MP, LIVER, LIPA, SHERRI #### [facility] [address] [place] [address] Dr. Deepak August Monocytes/100 WBC (Bld) 6.9 % Normal 1.7-12.0 [facility] Comment on above: Performed By: #### B MP, LIVER, LIPA, SHERRI #### [facility] [address] [place] [address] Dr. Deepak August NEUT # 4.3 103/ul Normal 1.4-6.5 [facility] Comment on above: Performed By: #### B MP, LIVER, LIPA, SHERRI #### [facility] [address] [place] [address] Dr. Deepak August Neutrophils/100 WBC (Bld) 63.3 % Normal 43.0-75.0 [facility] Comment on above: Performed By: #### B MP, LIVER, LIPA, SHERRI #### [facility] [address] [place] [address] Dr. Deepak August Platelet mean volume (Bld) [Entitic vol] 9.7 fL Normal 9.5-13.5 [facility] Comment on above: Performed By: #### B MP, LIVER, LIPA, SHERRI #### [facility] [address] [place] [address] Dr. Deepak August PLT 463 103/ul Critically high 150-[address] [facility] Comment on above: Performed By: #### B MP, LIVER, LIPA, SHERRI #### [facility] [address] [place] [address] Dr. Deepak August RBC 4.69 106/ul Normal 4.20-5.40 [facility] Comment on above: Performed By: #### B MP, LIVER, LIPA, SHERRI #### [facility] [address] [place] [address] Dr. Deepak August WBC 6.8 103/ul Normal 4.0-11.0 [facility] Comment on above: Performed By: #### B MP, LIVER, LIPA, SHERRI #### [facility] [address] [place] [address] Dr. Deepak August FREE THYROXINE INDEX T7on FTI 2.33 Normal 1.30-4.50 [facility] Comment on above: Performed By: #### B MP, LIVER, LIPA, SHERRI #### [facility] [address] [place] [address] Dr. Deepak August T3U 31.0 % Normal 30.0-39.0 [facility] Comment on above: Performed By: #### B MP, LIVER, LIPA, SHERRI #### [facility] [address] [place] [address] Dr. Deepak August T4 [Mass/Vol] 7.50 ug/dL Normal 4.80-13.90 [facility] Comment on above: Performed By: #### B MP, LIVER, LIPA, SHERRI #### [facility] [address] [place] [address] Dr. Deepak August GLYCOHEMOGLOBIN A1Con 2021 ADA RECOMMENDATION SEE BELOW Normal [facility] Comment on above: Result Comment: ADA RECOMMENDED LIMIT 4.0 - 6.0 ADA THERAPEUTIC TARGET < 7.0 ACTION SUGGESTED > 7.0 Performed By: #### A 1C #### [facility] [address] [place] [address] Dr. Deepak August Glucose [Mass/Vol] 114 mg/dL Normal [facility] Comment on above: Performed By: #### A 1C #### [facility] [address] [place] [address] Dr. Deepak August HbA1c (Bld) [Mass fraction] 5.6 % Normal 4.5-6.2 [facility] Comment on above: Performed By: #### A 1C #### [facility] [address] [place] [address] Dr. Deepak August IRONon 02-11-2022 Iron [Mass/Vol] 97.0 ug/dL Normal 50.0-170.0 [facility] Comment on above: Performed By: #### B MP, LIVER, LIPA, SHERRI #### [facility] [address] [address] [address] Deepak August LIPID PROFILEon 02-11-2022 CHOL-HDL RATIO NORM SEE BELOW Normal [facility] Comment on above: Result Comment: 3.3 - 4.4 LOW RISK 4.4 - 7.1 AVERAGE RISK 7.1 - 11.0 MODERATE RISK >11.0 HIGH RISK Performed By: #### B MP, LIVER, LIPA, SHERRI #### [facility] [address] [address] [address] Deepak August Cholesterol [Mass/Vol] 172 mg/dL Normal <=200 [facility] Comment on above: Performed By: #### B MP, LIVER, LIPA, SHERRI #### [facility] [address] [address] [address] Deepak August Cholesterol in HDL [Mass/Vol] 64 mg/dL Critically high 40-60 [facility] Comment on above: Performed By: #### B MP, LIVER, LIPA, SHERRI #### [facility] [address] [address] [address] Deepak August Cholesterol in LDL [Mass/Vol] 98.0 mg/dL Normal [facility] Comment on above: Performed By: #### B MP, LIVER, LIPA, SHERRI #### [facility] [address] [address] [address] Deepak August Cholesterol.total/Chol esterol in HDL [Mass ratio] 2.7 {ratio} Normal [facility] Comment on above: Performed By: #### B MP, LIVER, LIPA, SHERRI #### [facility] [address] [address] [address] Deepak August HDL NORMAL > or = 60 mg/dl - LO W CARDIOVASCULAR RISK <40 mg/dl - HIGH CARDIOVASCULAR RISK Normal [facility] Comment on above: Performed By: #### B MP, LIVER, LIPA, SHERRI #### [facility] [address] [place] [address] Dr. Deepak August LDL CALC NORMAL SEE BELOW Normal [facility] Comment on above: Result Comment: <100 mg/dl OPTIMAL 100 - 129 mg/dl NEAR OR ABOVE OPTIMAL 130 - 159 mg/dl BORDERLINE HIGH 160 - 189 mg/dl HIGH >190 mg/dl VERY HIGH Performed By: #### B MP, LIVER, LIPA, SHERRI #### [facility] [address] [address] [address] Deepak August Triglyceride [Mass/Vol] 50 mg/dL Normal <=150 [facility] Comment on above: Performed By: #### B MP, LIVER, LIPA, SHERRI #### [facility] [address] [address] [address] Deepak August VLDL CALC 10.0 mg/dL Normal [facility] Comment on above: Performed By: #### B MP, LIVER, LIPA, SHERRI #### [facility] [address] [place] [address] Dr. Deepak August PROF 14(COMP METB)on 022 Albumin [Mass/Vol] 3.9 g/dL Normal 3.4-5.0 [facility] Comment on above: Performed By: #### B MP, LIVER, LIPA, SHERRI #### [facility] [address] [address] [address] Deepak August Albumin/Globulin [Mass ratio] 1.3 {ratio} Normal [facility] Comment on above: Performed By: #### B MP, LIVER, LIPA, SHERRI #### [facility] [address] [address] [address] Deepak August ALP [Catalytic activity/Vol] 67 U/L Normal 46-116 [facility] Comment on above: Performed By: #### B MP, LIVER, LIPA, SHERRI #### [facility] [address] [address] [address] Deepak August ALT [Catalytic activity/Vol] 39 U/L Normal 14-59 [facility] Comment on above: Performed By: #### B MP, LIVER, LIPA, SHERRI #### [facility] [address] [address] [address] Deepak August Anion gap [Moles/Vol] 9.4 mmol/L Normal [facility] Comment on above: Performed By: #### B MP, LIVER, LIPA, SHERRI #### [facility] [address] [address] [address] Deepak August AST [Catalytic activity/Vol] 16 U/L Normal 15-37 [facility] Comment on above: Performed By: #### B MP, LIVER, LIPA, SHERRI #### [facility] [address] [place] [address] Dr. Deepak August Bilirubin [Mass/Vol] 0.6 mg/dL Normal 0.2-1.0 [facility] Comment on above: Performed By: #### B MP, LIVER, LIPA, SHERRI #### [facility] [address] [place] [address] Dr. Deepak August Calcium [Mass/Vol] 8.6 mg/dL Normal 8.5-10.1 [facility] Comment on above: Performed By: #### B MP, LIVER, LIPA, SHERRI #### [facility] [address] [place] [address] Dr. Deepak August Chloride [Moles/Vol] 105 mmol/L Normal 98-107 [facility] Comment on above: Performed By: #### B MP, LIVER, LIPA, SHERRI #### [facility] [address] [place] [address] Dr. Deepak August CO2 [Moles/Vol] 27.7 mmol/L Normal 21.0-32.0 [facility] Comment on above: Performed By: #### B MP, LIVER, LIPA, SHERRI #### [facility] [address] [place] [address] Dr. Deepak August Creatinine [Mass/Vol] 0.68 mg/dL Normal 0.55-1.02 [facility] Comment on above: Performed By: #### B MP, LIVER, LIPA, SHERRI #### [facility] [address] [place] [address] Dr. Deepak August EGFR-AF MAURITANIAN >60 Normal >=60 [facility] Comment on above: Performed By: #### B MP, LIVER, LIPA, SHERRI #### [facility] [address] [address] [address] Deepak August EGFR-NON AF MAURITANIAN >60 Normal >=60 [facility] Comment on above: Performed By: #### B MP, LIVER, LIPA, SHERRI #### [facility] [address] [address] [address] Deepak August Globulin (S) [Mass/Vol] 3.1 g/dL Normal [facility] Comment on above: Performed By: #### B MP, LIVER, LIPA, SHERRI #### [facility] [address] [address] [address] Deepak August Glucose [Mass/Vol] 115 mg/dL Critically high 74-106 [facility] Comment on above: Performed By: #### B MP, LIVER, LIPA, SHERRI #### [facility] [address] [place] [address] Dr. Deepak August Potassium [Moles/Vol] 4.1 mmol/L Normal 3.5-5.1 [facility] Comment on above: Performed By: #### B MP, LIVER, LIPA, SHERRI #### [facility] [address] [place] [address] Dr. Deepak August Protein [Mass/Vol] 7.0 g/dL Normal 6.4-8.2 [facility] Comment on above: Performed By: #### B MP, LIVER, LIPA, SHERRI #### [facility] [address] [address] [address] Deepak August Sodium [Moles/Vol] 138 mmol/L Normal 136-145 [facility] Comment on above: Performed By: #### B MP, LIVER, LIPA, SHERRI #### [facility] [address] [place] [address] Dr. Deepak August Urea nitrogen [Mass/Vol] 6.0 mg/dL Critically low 7.0-18.0 [facility] Comment on above: Performed By: #### B MP, LIVER, LIPA, SHERRI #### [facility] [address] [address] [address] Deepak August Urea nitrogen/Creatinine [Mass ratio] 8.8 mg/mg Normal [facility] Comment on above: Performed By: #### B MP, LIVER, LIPA, SHERRI #### [facility] [address] [place] [address] Dr. Deepak August TSHon 02-11-2022 TSH 0.860 uIU/mL Normal 0.358-3.740 [facility] Comment on above: Performed By: #### B MP, LIVER, LIPA, SHERRI #### [facility] [address] [address] [address] Deepak August MG MAMM SCREEN 3D FAISAL CADon 02-01-2022 MG MAMM SCREEN 3D FAISAL CAD Patient: RAMY MARTINEZ Exam Date: 02/01/2022 : 1980 Gender:F Ordering : DR RENA SMITH . Admission #: [id number] Family : Order #: [id number] CLICK HERE TO VIEW EXAM RADIOLOGY REPORT [...] uterine cancer at age 40. LOCATION: [facility] BREAST COMPOSITION: Heterogeneously dense,which may [...] MD on 02/01/2022 at 08:53 Normal [facility] PAP ACOG PANEL 2: 30 to 65on 01-31-2022 . . Normal [facility] Comment on above: Result Comment: Perf ormed at: WB Performed By: #### B MP, LIVER, LIPA, SHERRI #### [facility] [address] [address] [address] Deepak August Age Gdln ACOG Testing 30-65 Normal [facility] Comment on above: Performed By: #### B MP, LIVER, LIPA, SHERRI #### [facility] [address] [address] [address] Deepak August DIAGNOSIS: Comment Normal [facility] Comment on above: Result Comment: NEGA TIVE FOR INTRAEPITHELIAL LESION OR MALIGNANCY. FUNGAL ORGANISMS MORPHOLOGICALLY CONSISTENT WITH JAY SPECIES ARE PRESENT. CELLULAR CHANGES ASSOCIATED WITH INFLAMMATION ARE PRESENT. Performed at: WB Performed By: #### B MP, LIVER, LIPA, SHERRI #### [facility] [address] [place] [address] Dr. Deepak August HPV Aptima Negative Normal Negative [facility] Comment on above: Result Comment: This nucleic acid amplification test detects fourteen high-risk HPV types (16,18,31,33,35,39,45,51,52,56,58,59,66,68) without differentiation. Performed at: =G Performed By: #### B MP, LIVER, LIPA, SHERRI #### [facility] [address] [place] [address] Dr. Deepak August Methodology: Comment Normal [facility] Comment on above: Result Comment: This liquid based ThinPrep(R) pap test was screened with the use of an image guided system. Performed at: WB Performed By: #### B MP, LIVER, LIPA, SHERRI #### [facility] [address] [place] [address] Dr. Deepak August Note: Comment Normal [facility] Comment on above: Result Comment: The [...] #### B MP, LIVER, LIPA, SHERRI #### [facility] [address] [place] [address] Dr. Deepak August Performed by: Comment Normal [facility] Comment on above: Result Comment: Ness Ortiz, Paper Cap Machine Operator (ASCP) Performed at: WB Performed By: #### B MP, LIVER, LIPA, SHERRI #### [facility] [address] [address] [address] Deepak August Specimen adequacy: Comment Normal [facility] Comment on above: Result Comment: Sati sfactory for evaluation. No endocervical component is identified. Performed at: WB Performed By: #### B MP, LIVER, LIPA, SHERRI #### [facility] [address] [address] [address] Deepak August PROF CHEM 8 (BAS METB)on Anion gap [Moles/Vol] 12.9 mmol/L Normal [facility] Comment on above: Performed By: #### B MP, LIVER, LIPA, SHERRI #### [facility] [address] [address] [address] Deepak August Calcium [Mass/Vol] 8.7 mg/dL Normal 8.5-10.1 [facility] Comment on above: Performed By: #### B MP, LIVER, LIPA, SHERRI #### [facility] [address] [address] [address] Deepak August Chloride [Moles/Vol] 105 mmol/L Normal 98-107 [facility] Comment on above: Performed By: #### B MP, LIVER, LIPA, SHERRI #### [facility] [address] [address] [address] Deepak August CO2 [Moles/Vol] 25.3 mmol/L Normal 21.0-32.0 [facility] Comment on above: Performed By: #### B MP, LIVER, LIPA, SHERRI #### [facility] [address] [address] [address] Deepak August Creatinine [Mass/Vol] 0.69 mg/dL Normal 0.55-1.02 [facility] Comment on above: Performed By: #### B MP, LIVER, LIPA, SHERRI #### [facility] [address] [address] [address] Deepak August EGFR-AF MAURITANIAN >60 Normal >=60 [facility] Comment on above: Performed By: #### B MP, LIVER, LIPA, SHERRI #### [facility] [address] [address] [address] Deepak August EGFR-NON AF MAURITANIAN >60 Normal >=60 [facility] Comment on above: Performed By: #### B MP, LIVER, LIPA, SHERRI #### [facility] [address] [address] [address] Deepak August Glucose [Mass/Vol] 114 mg/dL Critically high 74-106 [facility] Comment on above: Performed By: #### B MP, LIVER, LIPA, SHERRI #### [facility] [address] [address] [address] Deepak August Potassium [Moles/Vol] 4.2 mmol/L Normal 3.5-5.1 [facility] Comment on above: Performed By: #### B MP, LIVER, LIPA, SHERRI #### [facility] [address] [address] [address] Deepak Augsut Sodium [Moles/Vol] 139 mmol/L Normal 136-145 [facility] Comment on above: Performed By: #### B MP, LIVER, LIPA, SHERRI #### [facility] [address] [address] [address] Deepak August Urea nitrogen [Mass/Vol] 6.0 mg/dL Critically low 7.0-18.0 [facility] Comment on above: Performed By: #### B MP, LIVER, LIPA, SHERRI #### [facility] [address] [address] [address] Deepak August Urea nitrogen/Creatinine [Mass ratio] 8.7 mg/mg Normal [facility] Comment on above: Performed By: #### B MP, LIVER, LIPA, SHERRI #### [facility] [address] [address] [address] Deepak August *HCG*POCT*DEVICEon 8 HCG.beta subunit ( test) Ql (U) Negative Normal Negative [facility] *POC GLUCOSE BATTERYon 09-03 *POC SAMPLE TYPE Capillary Blood Normal [facility] Glucose mass conc 106 mg/dL High 70-99 [facility] Comment on above: Result Comment: No B JALYN per RN: PATIENT TYPE Surgical Pathologyon 018 Surgical Pathology Surgical Pathology ReportPatient Name: RAMY MARTINEZ Rec #: [id number] Physician: LUIS GARCÍA--- Clinical History ---Preop Diagnosis: [...] developed by and are performed at [facility], [address] [place] [address]. All tests reported here, except those addressing HER2 overexpressionas a predictive marker, have not been cleared by or approved by the [place] Foodand Drug Administration (FDA). The laboratory is regulated under CLIA asqualified to perform high-complexity testing. The tests are used forclinical purposes. They should not be regarded as investigational or forresearch. [id number]:09/05/2017 *Electronically Signed ByJunior Hitchcock MD, PhD09/05/2017 17:39:19Professional Interpretation performed at location: [address] [place] [address]---SPECIMEN(S) RECEIVED:---SBXA: Colon, BXB: Colon, BXC: Colon, BXD: [...] TE 1 Lab Use Only: Job ID [id number] description by: Beata De Guzman [facility] Comment on above: Performed By: #### S URGP ####[address] [place] [address] [place] [address] C Reactive Proteinon 018 C reactive protein (CRP) 3.70 mg/L Normal <10.00 [facility] Comment on above: Performed By: #### C BCDFC, CMPN, CRP ####[place] [address] [place] [address] [place] [address] CBC,PLATELET,DIFFERENTIAL - CCLon 06-11-2017 Abs Baso 0.10 K/uL High 0.01-0.08 [facility] Comment on above: Performed By: #### C BCDFC, CMPN, CRP ####[facility] [place] [address], [place] [address]UisjgwOur [facility] [place] [address] Abs Eos 1.05 K/uL High 0.04-0.36 [facility] Comment on above: Performed By: #### C BCDFC, CMPN, CRP ####[facility] [place] [address], [place] [address]JbluvmOur [facility] Of [facility] [place] [address] Abs Montgomery 0.72 K/uL Normal 0.24-0.86 [facility] Comment on above: Performed By: #### C BCDFC, CMPN, CRP ####[facility] [place] [id number] [place], [place] [id number] [address] [place] [address] Basophils/100 WBC Auto (Bld) 1.0 % Normal [facility] Comment on above: Performed By: #### C BCDFC, CMPN, CRP ####[facility] [place] [address]EweqoxOur Lady Of Mercy [facility] [place] [address] DIFFERENTIAL TYPE Electronic Differential Normal [facility] Comment on above: Performed By: #### C BCDFC, CMPN, CRP ####[facility] [place] [address]GfjumjOur Lady Of Mer[facility] [place] [address] Eosinophils/100 leukocytes 10.2 % Normal [facility] Comment on above: Performed By: #### C BCDFC, CMPN, CRP ####[facility] [place] [address]AnnymxOur Lady Of Mercy [facility] - [facility] [place] [address] Erythrocytes (RBC) 4.80 10*6/uL Normal 3.93-5.22 [facility] Comment on above: Performed By: #### C BCDFC, CMPN, CRP ####[facility] [place] [address], [place] [address] [place], [place] [id number] [address] [place] [address] Erythrocytes (RBC) 13.1 % Normal 11.7-14.4 [facility] Comment on above: Performed By: #### C BCDFC, CMPN, CRP ####[facility] [place] [address], [place] [address] [place], [place] [id number] [address] [place] [address] Hematocrit (HCT) 41.8 % Normal 34.1-44.9 [facility] Comment on above: Performed By: #### C BCDFC, CMPN, CRP ####[facility] [place] [address], [place] [address] [place], [place] [id number] [address] [place] [address] Hemoglobin mass conc (Bld) 28.5 pg Normal 25.6-32.2 [facility] Comment on above: Performed By: #### C BCDFC, CMPN, CRP ####[facility] [place] [id number] [place], [place] [id number] [address] [place] [address] 65419 Hemoglobin mass conc (Bld) 32.8 g/dL Normal 32.2-35.5 [facility] Comment on above: Performed By: #### C BCDFC, CMPN, CRP ####[facility] [place] [address], [place] [address] [place], [place] [id number] [address] [place] [address] 90521 Hemoglobin mass conc (Bld) 13.7 g/dL Normal 11.2-15.7 [facility] Comment on above: Performed By: #### C BCDFC, CMPN, CRP ####[facility] [place] [address] [address] [place] [address] 73341 IMMATURE GRANS % 0.3 % Normal [facility] Comment on above: Performed By: #### C BCDFC, CMPN, CRP ####[facility] [place] [id number] [place], [place] [id number] [address] [place], [place] [address] IMMATURE GRANS ABSOLUTE 0.03 K/uL Normal 0.00-0.03 [facility] Comment on above: Performed By: #### C BCDFC, CMPN, CRP ####[facility] [place], [place] [id number] [address] [place] [address] 62683 Lymphocytes 2.73 10*3/uL Normal 1.18-3.74 [facility] Comment on above: Performed By: #### C BCDFC, CMPN, CRP ####[facility] [place], [place] [id number] [address] [place] [address] 19195 Lymphocytes/100 leukocytes 26.5 % Normal [facility] Comment on above: Performed By: #### C BCDFC, CMPN, CRP ####[facility] [place], [place] [id number] [address] [place] [address] 99496 MCV 87.1 fL Normal 79.4-94.8 [facility] Comment on above: Performed By: #### C BCDFC, CMPN, CRP ####[facility] [place], [place] [id number] [address] [place] [address] 09238 Monocytes/100 leukocytes 7.0 % Normal [facility] Comment on above: Performed By: #### C BCDFC, CMPN, CRP ####[facility] [place] [address] 45562 NEUTROPHIL SEGMENTED 55.0 % Normal [facility] Comment on above: Performed By: #### C BCDFC, CMPN, CRP ####[facility] [place], [place] [address] [place], [place] [id number] [address] [place] [address] 75854 Nucleated erythrocytes 0.0 /100 WBC Normal 0.0-0.2 [facility] Comment on above: Performed By: #### C BCDFC, CMPN, CRP ####[facility] [place], [place] [id number] [address] [place] [address] 98636 Platelet mean volume (PMV) 11.1 fL Normal 9.4-12.3 [facility] Comment on above: Performed By: #### C BCDFC, CMPN, CRP ####[facility] [place], [place] [id number] [address] [place] [address] 45266 Platelets 433 10*3/uL High 182-369 [facility] Comment on above: Performed By: #### C BCDFC, CMPN, CRP ####[facility] [place], [place] [id number] [address] [place] [address] 87307 SEGS + Bands,Absolute 5.66 K/uL Normal 1.56-6.13 [facility] Comment on above: Performed By: #### C BCDFC, CMPN, CRP ####[facility] [place], [place] [id number] [address] [place] [address] 12151 WBC (Leukocytes) 10.29 10*3/uL High 3.98-10.04 [facility] Comment on above: Performed By: #### C BCDFC, CMPN, CRP ####[facility] [address] [place] [id number] Lady Of Mer[facility] [place] [address]4792 Comprehensive Metabolic Pane [place] 06-11-2017 Alanine aminotransferase (ALT) 15 U/L Normal 9-48 [facility] Comment on above: Performed By: #### C BCDFC, CMPN, CRP ####[facility] [place] [address] [place], [place] [id number] [address] [place] [address] 78239 Albumin 4.6 g/dL Normal 3.5-5.0 [facility] Comment on above: Performed By: #### C BCDFC, CMPN, CRP ####[facility] [place] [address] [place], [place] [id number] [address] [place] [address] 60222 Alkaline phosphatase (ALP) 77 U/L Normal 32-126 [facility] Comment on above: Performed By: #### C BCDFC, CMPN, CRP ####[facility] [place], [place] [id number] [address] [place] [address] 79579 Anion gap 12 mmol/L Normal 7-17 [facility] Comment on above: Performed By: #### C BCDFC, CMPN, CRP ####[facility] [place] [address] [place], [place] [id number] [address] [place] [address] 84554 Aspartate aminotransferase (AST) 14 U/L Normal 14-40 [facility] Comment on above: Performed By: #### C BCDFC, CMPN, CRP ####[facility] [place] [address] [place], [place] [id number] [address] [place] [address] 73427 Bilirubin (total) 0.4 mg/dL Normal <1.5 [facility] [place] Comment on above: Performed By: #### C BCDFC, CMPN, CRP ####[facility] [place] [address] 34971WxuafuOur Lady Of Mercy [facility] [place] [address] 57366 BUN/Creatinine Ratio 13 mg/mg Normal [facility] Comment on above: Performed By: #### C BCDFC, CMPN, CRP ####[facility] [place] [address] [place], [place] [address] [address] [place] [address] 90039 Calcium 9.5 mg/dL Normal 8.6-10.5 [facility] Comment on above: Performed By: #### C BCDFC, CMPN, CRP ####[facility] [place], [place] [address] [place], [place] [address] [address] [place] [address] 11344 Chloride 104 mmol/L Normal 98-108 [facility] Comment on above: Performed By: #### C BCDFC, CMPN, CRP ####[facility] [place], [place] [id number] [address] [place] [address] 19066 CO2 27 mmol/L Normal 22-30 [facility] Comment on above: Performed By: #### C BCDFC, CMPN, CRP ####[facility] [place], [place] [id number] [address] [place] [address] 68801 Creatinine 0.68 mg/dL Normal 0.50-1.20 [facility] Comment on above: Performed By: #### C BCDFC, CMPN, CRP ####[facility] [place] [address] [place], [place] [id number] [address] [place] [address] 63564 eGFR (non-black) mL/min/{1.73_m2} Normal >60 [facility] Comment on above: Performed By: #### C BCDFC, CMPN, CRP ####[facility] [place] [address] 92150QsfanbOur Lady Of Mercy Hospital [facility] [place] [address] 33441 Glucose mass conc 90 mg/dL Normal 70-99 [facility] [place] Comment on above: Performed By: #### C BCDFC, CMPN, CRP ####[facility] [place] [address] 70571PbkpkbOur Lady Of [facility] [place] [address] 44178 Osmolality 288 mOsm/kg Normal 278-305 [facility] Comment on above: Performed By: #### C BCDFC, CMPN, CRP ####[facility] [place] [address] [id number] Lady Of Mercy Hospital [facility] [place] [address] 71870 Potassium molar conc 3.7 mmol/L Normal 3.5-5.0 [facility] Comment on above: Performed By: #### C BCDFC, CMPN, CRP ####[facility] [place] [address] [place], [place] [id number] [address] [place] [address] 36217 Protein 7.6 g/dL Normal 6.4-8.3 [facility] Comment on above: Performed By: #### C BCDFC, CMPN, CRP ####[facility] [place] [address] 22890AmdvuaOur Lady Of Mercy [facility] [place] [address] 48569 Sodium 139 mmol/L Normal 133-143 [facility] Comment on above: Performed By: #### C BCDFC, CMPN, CRP ####[facility] [place] [address] 51586GevjdyOur Lady Of Mercy Hospital [facility] [place] [address] 96340 Urea nitrogen 9 mg/dL Normal 7-22 [facility] Comment on above: Performed By: #### C BCDFC, CMPN, CRP ####[facility] [place], [place] [address]CludnrOur Lady Of Mercy Hospital [facility] [place], [place] [address] Vital Signs Date Time Vital Sign Value Performing Clinician Facility 09-24-2024 08:18-0400 Blood Pressure Location Torres Sarmini [facility] 09-24-2024 08:18-0400 Diastolic blood pressure 86 mm[Hg] Torres Sarmini [facility] 09-24-2024 08:18-0400 Heart rate 73 /min Torres Sarmini [facility] 09-24-2024 08:18-0400 Systolic blood pressure 125 mm[Hg] Torres Sarmini [facility] 01-22-2024 15:40-0400 Body height 165.1 cm Denisse Chiang MD Work Phone: [facility] 01-22-2024 15:40-0400 Body mass index (BMI) [Ratio] 29.79 kg/m2 Denisse Chiang MD Work Phone: [facility] 01-22-2024 15:40-0400 Body weight 81.19 kg Denisse Chiang MD Work Phone: [facility] 01-22-2024 15:40-0400 Diastolic blood pressure 81 mm[Hg] Denisse Chiang MD Work Phone: [facility] 01-22-2024 15:40-0400 Heart rate 76 /min Denisse Chiang MD Work Phone: [facility] 01-22-2024 15:40-0400 Systolic blood pressure 117 mm[Hg] Denisse Chiang MD Work Phone: [facility] 01-03-2024 15:07-0400 Body mass index (BMI) [Ratio] 29.64 kg/m2 Sherri LARKIN Work Phone: [facility] 01-03-2024 15:07-0400 Body weight 80.8 kg Sherri Reynolds PA Work Phone: [facility] 01-03-2024 15:07-0400 Diastolic blood pressure 76 mm[Hg] Sherri Reynolds PA Work Phone: [facility] 01-03-2024 15:07-0400 Systolic blood pressure 110 mm[Hg] Sherri Reynolds PA Work Phone: [facility] 12-24-2023 20:30-0400 Diastolic blood pressure 63 mm[Hg] Denisse Chiang MD Work Phone: [facility] 12-24-2023 20:30-0400 Heart rate 84 /min Denisse Chiang MD Work Phone: [facility] 12-24-2023 20:30-0400 Respiratory rate 17 /min Denisse Chiang MD Work Phone: [facility] 12-24-2023 20:30-0400 SaO2% (BldA) [Mass fraction] 99 % Denisse Chiang MD Work Phone: [facility] 12-24-2023 20:30-0400 Systolic blood pressure 110 mm[Hg] Denisse Chiang MD Work Phone: [facility] 12-24-2023 20:00-0400 Body temperature 97.2 [degF] Denisse Chiang MD Work Phone: [facility] 12-24-2023 12:43-0400 Body height 165.1 cm Denisse Chiang MD Work Phone: [facility] 12-24-2023 12:43-0400 Body mass index (BMI) [Ratio] 28.96 kg/m2 Denisse Chiang MD Work Phone: [facility] 12-24-2023 12:43-0400 Body weight 78.93 kg Denisse Chiang MD Work Phone: [facility] 10-09-2023 13:06-0400 Body height 165.1 cm Denisse Chiang MD Work Phone: [facility] 10-09-2023 13:06-0400 Body mass index (BMI) [Ratio] 29.79 kg/m2 Denisse Chiang MD Work Phone: [facility] 10-09-2023 13:06-0400 Body weight 81.19 kg Denisse Chiang MD Work Phone: [facility] 10-09-2023 13:06-0400 Diastolic blood pressure 82 mm[Hg] Denisse Chiang MD Work Phone: [facility] 10-09-2023 13:06-0400 Heart rate 84 /min Denisse Chiang MD Work Phone: [facility] 10-09-2023 13:06-0400 Systolic blood pressure 126 mm[Hg] Denisse Chiang MD Work Phone: [facility] 09-25-2023 14:27-0400 Blood Pressure Location Torres Sarmini [facility] 09-25-2023 14:27-0400 Diastolic blood pressure 80 mm[Hg] Torres Sarmini [facility] 09-25-2023 14:27-0400 Heart rate 70 /min Torres Sarmini [facility] 09-25-2023 14:27-0400 Respiratory rate 18 /min Torres Sarmini [facility] 09-25-2023 14:27-0400 Systolic blood pressure 116 mm[Hg] Torres Sarmini [facility] 09-10-2023 14:15-0400 Diastolic blood pressure 88 mm[Hg] Torres Sarmini [facility] 09-10-2023 14:15-0400 Heart rate 78 /min Torres Sarmini [facility] 09-10-2023 14:15-0400 Respiratory rate 17 /min Torres Sarmini [facility] 09-10-2023 14:15-0400 SaO2% (BldA) [Mass fraction] 100 % Torres Sarmini [facility] 09-10-2023 14:15-0400 Systolic blood pressure 137 mm[Hg] Torres Sarmini [facility] 09-10-2023 14:05-0400 Diastolic blood pressure 89 mm[Hg] Torres Sarmini [facility] 09-10-2023 14:05-0400 Heart rate 72 /min Torres Sarmini [facility] 09-10-2023 14:05-0400 Respiratory rate 16 /min Torres Sarmini [facility] 09-10-2023 14:05-0400 SaO2% (BldA) [Mass fraction] 99 % Torres Sarmini [facility] 09-10-2023 14:05-0400 Systolic blood pressure 147 mm[Hg] Torres Sarmini [facility] 09-10-2023 14:00-0400 Heart rate 75 /min Torres Sarmini [facility] 09-10-2023 14:00-0400 Systolic blood pressure 142 mm[Hg] Torres Sarmini [facility] 09-10-2023 13:49-0400 Body temperature 97.7 [degF] Torres Sarmini [facility] 09-10-2023 13:45-0400 Respiratory rate 14 /min Torres Sarmini [facility] 09-10-2023 13:40-0400 Respiratory rate 14 /min Torres Sarmini [facility] 09-10-2023 13:35-0400 Respiratory rate 13 /min Torres Sarmini [facility] 09-10-2023 11:40-0400 Blood Pressure Location Torres Sarmini [facility] 09-10-2023 11:40-0400 Body temperature 97.52 [degF] Torres Sarmini [facility] 07-11-2023 07:38-0500 Blood Pressure Location Torres Sarmini [facility] 07-11-2023 07:38-0500 Diastolic blood pressure 88 mm[Hg] Torres Sarmini [facility] 07-11-2023 07:38-0500 Heart rate 80 /min Torres Sarmini [facility] 07-11-2023 07:38-0500 Respiratory rate 18 /min Torres Sarmini [facility] 07-11-2023 07:38-0500 Systolic blood pressure 128 mm[Hg] Torres Sarmini [facility] 08-31-2022 17:05-0400 Body temperature 98.4 [degF] MD Yaquelin Perez Work Phone: [facility] 08-31-2022 17:05-0400 Diastolic blood pressure 86 mm[Hg] MD Yaquelin Perez Work Phone: [facility] 08-31-2022 17:05-0400 Heart rate 72 /min MD Yaquelin Perez Work Phone: [facility] 08-31-2022 17:05-0400 Respiratory rate 18 /min MD Yaquelin Perez Work Phone: [facility] 08-31-2022 17:05-0400 SaO2% (BldA) [Mass fraction] 100 % MD Yaquelin Perez Work Phone: [facility] 08-31-2022 17:05-0400 Systolic blood pressure 129 mm[Hg] MD Yaquelin Perez Work Phone: [facility] 08-29-2022 14:54-0400 Body height 166.37 cm MD Yaquelin Perez Work Phone: [facility] 08-28-2022 17:33-0400 Body weight 96.61 kg MD Yaquelin Perez Work Phone: [facility] 08-30-2021 10:00-0400 Body height 165.1 cm Reddy Dewitt Other [employer] Other 08-30-2021 10:00-0400 Body mass index (BMI) [Ratio] 36.61 kg/m2 Reddy Dewitt Other [employer] Other 08-30-2021 10:00-0400 Body weight 99.79 kg Reddy Dewitt Other [employer] Other Encounters Encounter Date Encounter Type Care Provider Facility Start: 11-04-2025 ambulatory Torres Talal Sarmini [facility] Start: 11-05-2024 End: 11-05-2024 ambulatory Torres Talal Sarmini [facility] Start: 11-05-2024 End: 11-05-2024 Patient encounter procedure Torres Talal Sarmini [facility] Start: 10-20-2024 End: 10-21-2024 ambulatory [facility] Start: 10-07-2024 End: 10-07-2024 Lab Drop off Torres Talal Sarmini [facility] Start: 10-07-2024 End: 10-07-2024 ambulatory Torres Talal Sarmini Facility:[facility] Start: 10-07-2024 End: 10-07-2024 ambulatory Torres Talal Sarmini Facility::[id number] Start: 09-24-2024 End: 09-24-2024 ambulatory Torres Talal Sarmini Facility:[facility] Start: 09-24-2024 End: 09-24-2024 Patient encounter procedure Torres Talal Sarmini [facility] Start: 01-22-2024 End: 01-22-2024 Postop follow up visit related to original px Denisse Chiang MD Work Phone: [facility] Comment on above: Prolapsed internal h emorrhoids (Primary Dx) Start: 01-22-2024 End: 01-22-2024 ambulatory DENISSE MATIAS [facility] Start: 01-03-2024 End: 01-03-2024 Patient encounter [...] Unsolicited Start: 12-24-2023 End: 12-24-2023 ambulatory DENISSE [facility] Start: 12-24-2023 End: 12-24-2023 Subsequent hospital visit by physician Denisse Chiang MD Work Phone: [facility] [place] Comment on above: Prolapsed internal h emorrhoids Start: 12-13-2023 End: 12-13-2023 ambulatory [facility] Start: 12-13-2023 End: 12-13-2023 Encounter for other preprocedural examination [facility] Start: 11-28-2023 End: 11-28-2023 ambulatory [facility] Start: 11-28-2023 End: 11-28-2023 ambulatory [facility] Start: 11-28-2023 End: 11-28-2023 ambulatory [facility] Start: 10-24-2023 ambulatory Tyler Person acility:[facility] Start: 10-09-2023 End: 10-09-2023 Office outpatient new 30 minutes Denisse Chiang MD Work Phone: [facility] Comment on above: Rectal prolapse (Coni briseida Dx); Internal hemorrhoids Start: 10-09-2023 End: 10-09-[address] [facility] Start: 09-25-2023 End: 09-25-2023 Patient encounter procedure Melissa Rivera [facility] Start: 09-10-2023 End: 09-10-2023 Patient encounter procedure Melissa Guerrerominpriyank [facility] Start: 07-11-2023 End: 07-11-2023 Patient encounter procedure Melissa Rivera [facility] Start: 07-11-2023 End: 07-11-2023 Patient encounter procedure Melissa Rivera [facility] Start: 08-28-2022 End: 08-31-2022 Evaluation and management of inpatient MD Yaquelin Perez Work Phone: [facility] Work Phone: Start: 08-28-2022 End: 08-28-[address] YAQUELIN PEREZ . Facility:[facility] Start: 08-16-2022 ambulatory CHASITY BOOKER Facility:[facility] Start: 06-10-2022 End: 06-11-[address] NICOLLE BALL Facility:[facility] Start: 02-14-2022 Encounter for genera l adult medical examination without abnormal findings [facility] Start: 02-13-2022 End: 02-14-[address] [...] End: 01-19-2022 Patient encounter procedure Chasity CASTILLOAM [facility] Start: 10-12-2021 End: 10-13-2021 ambulatory CHASITY BOOKER Facility: Start: 08-30-2021 End: 08-30-2021 ambulatory Redyd Esdras Other [facility] Other Start: 08-30-2021 Office outpatient vi sit 15 minutes Reddy Dewitt [facility] Start: 08-09-2021 End: 08-09-2021 Patient encounter procedure MD Yaquelin Perez Work Phone: [facility] Start: 09-03-2017 End: 09-03-2017 Ambulatory JUDITH LEÓN [facility] Start: 06-11-2017 Ambulatory [facility] Start: 06-11-2017 Ambulatory [facility] Procedures Date Procedure Procedure Detail Performing [...] f 2) Zoster Vaccines (1 of 2) [facility] Start: 01-02-2027 Screening for malignant neoplasm of cervix [facility] Start: 12-23-2026 Diabetes mellitus screening Diabetes Screening [facility] Start: 01-12-2025 End: 01-12-2025 Patient encounter procedure 01/12/2025 3:00 PM EDT Office Visit [facility] [address] [facility] [facility] [address] [place] [address] Sherri Reynolds PA [address] [place], [place] [address] [place] [address] [facility] Start: 01-06-2024 COVID-19 Vaccine ( season) COVID-19 Vaccine ( season) [facility] Start: 01-06-2024 Influenza vaccination [facility] Start: 01-03-2024 End: 01-03-2024 Patient encounter procedure 01/03/2024 3:00 PM EDT Office Visit [facility] [address] [place] [id number] Sherri Reynolds, PA [address] [place] [address] Arrived [facility] Comment on above: Arrived Start: 01-03-2024 End: 03-04-2025 MG Breast - bilateral Screening Bilateral screening mammogram Imaging Routine Breast cancer screening by mammogram Expected: 01/03/2024 (Approximate), Expires: 03/04/2025 [facility] Work Phone: Comment on above: Expected: 01/03/2024 (Approximate), Expires: 03/04/2025 Start: 11-28-2023 End: 11-28-2023 Patient encounter procedure 11/28/2023 2:00 PM EDT Office Visit [facility] [address] [place] [id number] Joseph Soriano, DO [address] [place] [address] [facility] Start: 01-05-2023 COVID-19 Vaccine ( season) COVID-19 Vaccine ( season) [facility] Start: 08-31-2022 [facility] Start: 08-28-2022 Hospital admission [facility] Start: 2020 Screening for malignant neoplasm of breast Mammogram [facility] Start: 10-18-2018 Varicella vaccination Varicell a Vaccines (1 of 2 - 13+ 2-dose series) [facility] Start: 2010 Screening for malignant neoplasm of cervix [facility] Start: 2002 DTaP/Tdap/Td Vaccine s (2 - Tdap) DTaP/Tdap/Td Vaccines (2 - Tdap) [facility] Start: 2001 Screening for malignant neoplasm of cervix [facility] Start: 1998 Diabetes mellitus screening Diabetes Screening [facility] Start: 1998 Hepatitis C screening Hepatitis C Sc [facility] Start: 1986 Pneumococcal Vaccine : Pediatrics (0 to 5 Years) and At-Risk Patients (6 to 64 Years) (1 of 2 - PCV) Pneumococcal Vaccine: Pediatrics (0 to 5 Years) and At-Risk Patients (6 to 64 Years) (1 of 2 - PCV) [facility] Start: 1980 IPV Vaccines (2 of 3 - 4-dose series) IPV Vaccines (2 of 3 - 4-dose series) [facility] Start: 1980 HIV screening HIV Screening [facility] Start: 1980 Lipid panel Lipid Panel [facility] Start: 1980 Yearly Adult Physical Yearly Adult P hysical [facility] End: 12-24-2023 Continuous Pulse oximetry, In Phase 1 Continuous Pulse oximetry, In Phase 1 Respiratory Care Routine Continuous until discontinued starting 12/24/2023 [facility] Work Phone: Comment on above: Continuous until dis continued starting 12/24/2023 End: 12-24-2023 Incentive spirometry Instruct Incentive spirometry Instruct Respiratory Care Routine Once for 1 Occurrences starting 12/24/2023 until 12/24/2023 [facility] Service Area Work Phone: Comment on above: Once for 1 Occurrenc es starting 12/24/2023 until 12/24/2023 Patient Education Depression, Ad ult (DC) [facility] DC Instructions [facility] Work Phone: Patient referral [facility] Work Phone: Surgical pathology study [facility] Service Area Work Phone: Comment on above: Release Upon Elizabethin g for 1 Occurrences starting 12/24/2023, 1 completed THIN PREP TIS PAP AN D HR HPV DNA THIN PREP TIS PAP AND HR HPV DNA Pathology and Cytology Routine Well woman exam with routine gynecological exam Ordered: 01/03/2024 [facility] Healthcare Comment on above: Ordered: 01/03/2024 Immunizations Immunization Date Immunization Notes Care Provider Jacki dunlap 06-02-2020 SARS-CoV-2 (COVID-19 ) mRNA-1273 vaccine Gaspar Erecruit [facility] 05-05-2020 SARS-CoV-2 (COVID-19 ) mRNA-1273 vaccine Gaspar SALAM [facility] 03-25-2020 influenza virus vaccine, unspecified formulation Sherri LARKIN Work Phone: [facility] 09-20-2018 hepatitis A vaccine, adult dosage Gaspar SALAM [facility] 09-20-2018 measles, mumps and rubella virus vaccine Gaspar SALAM [facility] 04-16-2017 hepatitis B vaccine, adult dosage Gaspar SALAM [facility] 11-08-2016 hepatitis B vaccine, adult dosage Gaspar SALAM [facility] 10-04-2016 hepatitis B vaccine, adult dosage Gaspar SALAM [facility] 1980 poliovirus vaccine, unspecified formulation Denisse Chiang MD Work Phone: [facility] Work Phone: NEGATED: Highlighted row has not occurred!07-09-2023 influenza virus vaccine, unspecified formulation Torres Sarmini [facility] NEGATED: Highlighted row has not occurred!07-06-2022 influenza virus vaccine, unspecified formulation Torres Sarmini [facility] NEGATED: Highlighted row has not occurred!06-13-2021 influenza virus vaccine, unspecified formulation Gaspar SALAM [facility] Payers Date Payer Category Payer Private Health Insurance [facility] [id number] 2021 Unknown [id number] 2017 Unknown [id number] 2016 Unknown [id number] 1980 Unknown [id number] 2.16.84 0.1.987255.3.579.2.593 1980 Unknown [id number] 2.16.84 0.1.706087.3.579.2.593 1980 Unknown [id number] 2.16.84 0.1.466523.3.579.2.593 1980 Unknown [id number] 2.16.84 0.1.981286.3.579.2.593 1980 Unknown [id number] 2.16.84 0.1.210276.3.579.2.593 1980 Unknown [id number] 2.16.84 0.1.475924.3.579.2.593 1980 Unknown [id number] 2.16.84 0.1.483959.3.579.2.593 1980 Unknown [id number] 2.16.84 0.1.793649.3.579.2.593 1980 Unknown [id number] 2.16.8 40.1.203258.3.579.2.1244 1980 Unknown [id number] 2.16.8 40.1.456238.3.579.2.5 1980 Unknown [id number] 2.16.8 40.1.597243.3.579.2.1244 1980 Unknown [id number] 2.16.8 40.1.224858.3.579.2.1244 1980 Unknown [id number] 2.16.8 40.1.458895.3.579.2.1244 1980 Unknown [id number] 2.16.8 40.1.765799.3.579.2.1242 1980 Unknown [id number] 2.16.8 40.1.826668.3.579.2.124 1980 Unknown [id number] 2.16.8 40.1.834668.3.579.2.1244 1980 Unknown [id number] 2.16.8 40.1.785936.3.579.2.1244 1980 Unknown [id number] 2.16.8 40.1.294119.3.579.2.1244 1980 Unknown [id number] 2.16.8 40.1.717515.3.579.2.727 1980 Unknown [id number] 2.16.8 40.1.100967.3.579.2.727 1980 Unknown [id number] 2.16.8 40.1.403775.3.579.2.727 1980 Unknown [id number] 2.16.8 40.1.768647.3.579.2.727 1980 Unknown [id number] 2.16.8 40.1.027244.3.579.2.727 1959 [facility] [id number] 2.16.840.1.436807.19 1959 Self-pay [id number] Unknown Self Pay [id number] Unknown [id number] 2.16.8 40.1.181303.3.579.2.531 Social History Date Type Detail Facility Start: 10-10-2019 End: 11-05-2024 Tobacco smoking status UTIS Never smoked tobacco (finding) [facility] Start: 1980 Sex Assigned At Female [facility] Start: 01-15-2023 End: 12-24-2023 Sex Assigned At [employer] Other Tobacco smoking status Never [facility] Tobacco smoking stat us UTIS Tobacco smoking consumption unknown [facility] Work Phone: Start: 1980 Sex assigned at Not on file [facility] Work Phone: Start: 09-29-2023 End: 01-22-2024 Exposure to SARS-CoV-2 (event) Not sure [facility] Start: 11-28-2023 Tobacco use and exposure Smokeless tobacco non-user [facility] Work Phone: Start: 12-24-2023 End: 01-22-2024 Alcoholic beverage intake Current drinker of alcohol (finding) [facility] Work Phone: Start: 01-15-2023 End: 12-24-2023 Alcoholic beverage intake [facility] Work Phone: Start: 12-13-2023 Alcohol Comment rarely [facility] Work Phone: Start: 01-15-2023 End: 01-03-2024 Alcoholic beverage intake Lifetime non-drinker (finding) [facility] Start: 11-19-2023 Gender identity Identifies as female gender (finding) [facility] Sexual Orientation [facility] Start: 07-25-2018 Sex Female (finding) [facility] Medical Equipment Procedure Code Equipment Code Equipment Origin al Text Equipment Identifier Dates Cervical total d isc replacement prosthesis, sterile [id number] [facility] Start: 10-10-2019 Goals Date Patient Goal Desired Activity /State Functional Status Date Assessment Result Facility 09-24-2024 Functional Status N/A [facility] 09-25-2023 Functional Status N/A [facility] 09-10-2023 Functional Status N/A [facility] 07-11-2023 Functional Status N/A [facility] 08-31-2022 Functional status Patient at Baseline [facility] Work Phone: Mental Status Date Assessment Result Facility 08-31-2022 Cognitive function Cognitive Sta rust Patient at Baseline [facility] Work Phone: Clinical Notes 07-21-2021 to 10-20-2024 Denisse Chiang MD - 01/22/2024 3:40 PM EDTLaboratoryCHAYA Jean - 01/03/2024 3:00 PM EDTDischarge InstructionsOp Note - Denisse Chiang MD - 12/24/2023 6:05 PM EDT Note Date & Type Note Facility 10-20-2024 Note [place] [facility] Subjective Ramy Martinez is a 44 [...] (four) hours if needed., Disp: , Rfl: agcxivdfuft-shnmbqqlj-yfdpzwgh (Trelegy Ellipta) 200-62.5-25 mcg blister with device, [...] 80, TSH 0. (more content not included)... [facility] 10-08-2024 Hospital Discharg e instructions Follow Up Care 10/08/2024 11:03:25 With:Miguel HAQUE, ABDIAS Osorio, [facility] Address: [address] [place] [address], [facility] [address] [address] [phone] When:Within 1 Year(s) [facility] 01-22-2024 History of Presen t illness Narrative HPI Ramy Martinez is a 43 y.o. female who has a hx of pancolonic UC, which was diagnosed in 2006. She was started on humira, which caused lupus like symptoms. She also reports developing antibodies to humira. Patient was then switched to Entyvio from [id number]. She unfortunately lost insurance and stopped taking it. She is currently taking Mesalamine. She was referred by [facility], Dr. Rivera for possible rectal prolapse. 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 traZODone (Desyrel) 50 mg tablet Take 1 [...] 01/22/2024 5:08 PM documented in this encounter [facility] Work Phone: 01-16-2024 Evaluation + Plan note Future Scheduled TestsVitamin D 25 Hydroxy 01/16/24Vitamin D 25 Hydroxy 09/24/24CBC w/ Auto Diff 09/24/24Comprehensive Metabolic Panel 09/24/24 [facility] 01-03-2024 History of Presen t [...] nursing note reviewed. Exam conducted with a technical support director present. Vitals: Estimated body mass index is [...] of: CHAYA Jean documented in this encounter [facility] 12-24-2023 Hospital Discharg e [facility] Denisse Chiang MD - 12/24/2023 6:44 PM [...] previous diet. FOLLOW-UP: Please call office at [phone] to schedule follow-up appointment for 3-4 weeks from date of surgery. documented in this encounter [facility] Work Phone: 12-24-2023 Note Formatting of this n ote is different from the original. Excisional Hemorrhoidectomy Operative Note Date: 12/24/2023 OR Location: [facility] OR Name: Ramy Martinez, : 1980, Age: 43 y.o., , Sex: female Diagnosis Pre-op Diagnosis * Prolapsed internal hemorrhoids [K64.8] Post-op Diagnosis * Prolapsed internal hemorrhoids [K64.8] Procedures Excisional hemorrhoidectomy, 2 columns Surgeons * Denisse Chiang - Primary Resident/Fellow/Other Intermission Coordinator: Surgeons and Role: * Krystal Cerrato PA-C [...] EXAM Denisse Chiang MD 12/24/2023 1831 Staff: Dry Mop Maker: Emily Venturaub Person: Denisse Drains and/or Catheters: [...] scrubbed for the entire procedure. Denisse Chiang [facility] Work Phone: 12-24-2023 Note Formatting of this n ote is different from the original. Date: 12/24/2023 OR Location: [facility] OR Name: Ramy Martinez, : 1980, Age: 43 y.o., , Sex: female Diagnosis Pre-op Diagnosis * Prolapsed internal hemorrhoids [K64.8] Post-op Diagnosis * Prolapsed internal hemorrhoids [K64.8] Procedures Excisional hemorrhoidectomy, 2 columns Surgeons * Denisse Chiang - Primary Resident/Fellow/Other Intermission Coordinator: Surgeons and Role: * Krystal Cerrato PA-C [...] PATHOLOGY EXAM Denisse Chiang MD 12/24/20231830 Staff: Dry Mop Maker: Emily Scrub Person: Denisse Findings: Enlarged right [...] scrubbed for the entire procedure. Denisse Chiang [facility] Work Phone: 12-24-2023 Miscellaneous Notes Excisional Hemorrhoidectomy Operative Note Date: 12/24/2023 OR Location: [facility] OR Name: Ramy Martinez, : 1980, Age: 43 y.o., , Sex: female Diagnosis Pre-op Diagnosis * Prolapsed internal hemorrhoids [K64.8] Post-op Diagnosis * Prolapsed internal hemorrhoids [K64.8] Procedures Excisional hemorrhoidectomy, 2 columns Surgeons * Denisse Chiang - Primary Resident/Fellow/Other Intermission Coordinator: Surgeons and Role: * Krystal Cerrato PA-C [...] EXAM Denisse Chiang MD 12/24/2023 1831 Staff: Dry Mop Maker: Emily Galeas Person: Denisse Drains and/or Catheters: [...] procedure. Denisse Chiang Date: 12/24/2023 OR Location: [facility] OR Name: Ramy Martinez, : 1980, Age: 43 y.o., , Sex: female Diagnosis Pre-op Diagnosis * Prolapsed internal hemorrhoids [K64.8] Post-op Diagnosis * Prolapsed internal hemorrhoids [K64.8] Procedures Excisional hemorrhoidectomy, 2 columns Surgeons * Denisse Chiang - Primary Resident/Fellow/Other Intermission Coordinator: Surgeons and Role: * Krystal Cerrato PA-C [...] PATHOLOGY EXAM Denisse Chiang MD 12/24/20231830 Staff: Dry Mop Maker: Emily Scrub Person: Denisse Findings: Enlarged right [...] procedure. Denisse Chiang documented in this encounter [facility] Work Phone: 12-24-2023 Attending History and [...] Patient was then switched to Entyvio from [id number]. She unfortunately lost insurance and stopped taking it. She is currently taking Mesalamine. She was referred by [facility], Dr. Rivera for possible rectal prolapse. 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 She unfortunately lost insurance and stopped taking it. She is currently taking Mesalamine. She was referred by [facility], Dr. Rivera for possible rectal prolapse. 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 [...] 11/28/2023 12:04 PM documented in this encounter [facility] Work Phone: 10-09-2023 History of Presen t illness Narrative Associated Order(s): Anoscopy Post-Procedure Diagnose(s): Rectal prolapse; Internal hemorrhoids HPI Ramy Martinez is a 43 y.o. female who has a hx of pancolonic UC, which was diagnosed in 2006. She was started on humira, which caused lupus like symptoms. She also reports developing antibodies to humira. Patient was then switched to Entyvio from [id number]. She unfortunately lost insurance and stopped taking it. She is currently taking Mesalamine. She was referred by [facility], Dr. Rivera for possible rectal prolapse. 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 [...] out from the anus and upload to [employer] for review #Internal hemorrhoids; right and left [...] 10/09/2023 1:37 PM documented in this encounter [facility] Work Phone: 09-14-2023 Hospital Discharg e instructions Follow Up Care 09/14/2023 15:08:58 With:Miguel HAQUE, ABDIAS Osorio, [facility] Address: [address] [place] [address], [address] [address] [phone] When:1 year [facility] 09-10-2023 Hospital Discharg e instructions [...] unsweetened, w/added ascorbic acid 1 cup 0.5 Dickey 1 cup 0.7 Vegetables Cooked Green beans 1 cup 4.0 Carrots 1/2 cup sliced 2.3 Peas 1 cup 8.8 Potato (baked, with skin) 1 medium potato 3.8 Raw [place] (with peel) 1 cucumber 1.5 Lettuce 1 [...] 8.7 Peanuts 1/2 cup 7.9 Chart from [facility] 2013. SEEK IMMEDIATE MEDICAL CARE IF: You [...] Available at http://www.nal.usda.gov/fnic/fo odcomp/search/. Information adapted from: [facility] Patient Information 2009 [employer]. [employer] 2012 http://www.Sparrow/content s/epvvdemgddss-djnybdb-wosvkz-t he-basics 09/10/2023 13:55:11 Hemorrhoids, Xrtq-sd-Cnci Hemorrhoids Hemorrhoids are swollen veins that may [...] 3 times a day. General instructions Take uetg-viv-nkkqkcd and prescription medicines only as told by [...] provider. Document Revised: 11/02/2021 Document Reviewed: 11/02/2021 [employer] Patient Education 2022 [employer]. Follow Up Care 07/11/2023 09:02:57 With:Miguel HAQUE, ABDIAS Osorio, [facility] Address: [address] [place] [address], [address] [place] [phone] When: Unknown Comments:Call for any problems. Office to call for follow up appointment. [facility] 09-10-2023 Evaluation + Plan note Extrac bre from: Title:ANES Post General Author:Serafin Mccabe DO. Date:09/10/23 Plan Transfer/Discharge: Patient exhibiting no signs of N/V. Hydration status is adequate. Extracted from: Title:[facility]liot Basic PRE Author:Monico Mccabe DO. Date:09/10/23 Plan [place] [employer] Anesthesiologists (ASA) physical status classification: Class III. Anesthetic Preoperative Plan: Anesthesia General. Future Scheduled Tests Laboratory* Vitamin D 25 Hydroxy 01/16/24 [facility]04-27-2023 Discharge summary Author Tyler quijano [facility] August 31, 2022 8:59am Note Date/Time August 31, 2022 8:5 7am [facility] [address] [place], [place] [id number] Discharge Summary Signed Patient: Ramy Martinez MR#: [id number] : 1980 Acct:[id number] Age/Sex: 42 / F Adm Date: 3 Loc: Room: [address] [place] [address]: Arleth Roach MD Copies to: [...] sister will come to visit her from [place]. She said her sister will stay with [...] Activity Restrictions Instructions: Depression, Adult (DC), [facility] DC Instructions Stand Alone Forms: Work/School Release Form Prescriptions: No Action pycvuwb-uior-nhxlk-oreg-capryl 100 mg-150 mg- 50 mg-150 mg Capsule [...] tablet by mouth once daily Follow Up: [facility] Counseling Hotline [Outside] [facility] [Outside] Yaquelin Perez MD [Primary Care Provider] - Documented By: Tyler Roach MD 3 [phone] Signed By: <Electronically signed by Tyler Roach MD> 08/31/22 0859 [facility] Work Phone: 1(767) 374-190304-26-2023 Progress note Author Tyler quijano [facility] August 30, 2022 9:05am Note Date/Time August 30, 2022 9:0 5am [facility] [address] [place] [address] Psychiatry Progress Note Signed Patient: Ramy Martinez MR#: [id number] : 1980 Acct:[id number] Age/Sex: 42 / F Adm Date: 3 Loc: 1S Room: [address] [place] [address] Type : ADM IN Attending Dr: Arleht Roach MD Copies to: ~ Date of [...] signed by Tyler Roach MD> 08/30/22 0905 [facility] Work Phone: 1(959) 919-798704-25-2023 History and physical note Author Tyler quijano [facility] August 29, 2022 12:16pm Note Date/Time August 29, 2022 12: 17pm [facility] [address] [place] [address] Psychiatry H&P Signed Patient: Ramy Martinez MR#: [id number] : 1980 Acct:[id number] Age/Sex: 42 / F Adm Date: 3 Loc: Room: [address] [place] [address] Type: ADM IN Attending Dr: Arleth Roach [...] Lives with her pieter? Employment: Works at [employer] in [employer] Relationships/support system: Reports it is pretty good [...] History (Updated 08/28/22 @ 18:13 by Adriane Avalso LPN) Mother Stomach cancer Brain cancer Lung [...] signed by Tyler Roach MD> 08/29/22 1216 [facility] Work Phone: 1(193) 283-659504-26-2022 Evaluation note* Encounter Date Diagnosis Assessment Notes [...] see her back in about 7 weeks. [employer] Other 03-17-2022 Evaluation + Plan note Future Scheduled Tests Laboratory* Basic Metabolic Panel 07/21/21 * Basic Metabolic Panel 06/30/21 [facility] Evaluation + Plan note Future Appointments Appointment Date:09/10/2023 12:30:00 PM Scheduled Provider: Location:[facility] Appointment Type:Surgery FT [facility] Evaluation + Plan note Future Appointments Appointment Date:09/10/2023 12:30:00 PM Scheduled Provider: Location:[facility] Appointment Type:Surgery FT Diagnostic Tests Pending * Hep Be Ag 07/11/23 * Hepatitis B Surface Antibody 07/11/23 * Hepatitis B Surface Antigen 07/11/23 * Quantiferon-TB Plus (Client Incubated) [facility]23 [facility] Future Appointments Appointment Date:09/24/2024 08:15:00 AM Scheduled Provider:Melissa Rivera MD Location:[facility] Appointment Type:[facility] Follow Up Future Scheduled Tests Laboratory* Vitamin D 25 Hydroxy 01/16/24 [facility] Evaluation + Plan note Future Appointments Appointment Date:11/04/2025 08:15:00 AM Scheduled Provider:Melissa Rivera MD Location:[facility] Appointment Type:[facility] Follow Up Future Scheduled Tests Laboratory* Vitamin D 25 Hydroxy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
--- OUTSIDE RECORDS SUMMARY | 2024-12-03 06:47 | XMS_ITS | Clinical Summary ---
Author Organization [facility] Address [address] [place] [address] [place] [address] Care Team Providers Care Patient Services Rep Name Role Phone Pedro Christian DO Primary Care Provider [phone] Allergies No known active allergies Medications albuterol [...] (06/11/2017): Added automatically from request for surgery [id number] Obesity: body mass index of 35.0-39.9 09/25/2016 Overview (08/07/2022): 08/05/22 IMO Update Family History Medical History Relation Name Comments Diabetes Maternal Grandfather Andrés Saini Type 2 GI Disease Maternal Grandfather Andrés Saini Divert iculosis Cancer- Other Maternal Grandmother Maryjane jackson john Ovarian cancer Other - Specify Mother lung disease GI Disease Paternal Grandfather Spencer Palacio He has diverticulitis Stroke Paternal Grandmother Maryjane Palacoi Intellectual Disability/DD/Autism Son Asim Walden Aspergers Relation [...] IMMUNOLOGY ORDERABLES Final Res ult LAB, [facility] [address] [place] [address] from Last 3 Months or Most Recently Relevant to Health Maintenance Insurance [address] [place] [address] MMO Member Subscriber Plan / Payer (Ef fective 2017-Present) Name:Madhuri Gusman Member ID:Not on file Relation to Subscriber:Spouse Name:KRYSTAL GUSMAN Date of :1977 (Home) Address: [address] [place] [address] [address] [place] [address] Payer ID:Not on file Type:Not on file Address: [address] [place] [id number] Care Teams Patient Services Rep Relationship Specialty Start Date End Date Pedro Christian DO PCP - General Family Medicine 10/01/15
--- OUTSIDE RECORDS SUMMARY | 2024-12-03 06:47 | XMS_ITS | Patient Health Record ---
Author Organization [facility] in [place] Address [address] [place] [address] Care Team Providers Care Bank Vault Custodian Name Role Phone Edil Martell Primary Care Provider [phone] Soumya Alvarado Levi [phone] Allergies Allergen (clinical drug ingredient) Drug/Non Drug Allergy documented on EMR Reaction Allergy Type Onset Date Status benzonatate Benzonatate hives,swelling,i tching,rash Drug Allergy Active Results Component Value Reference Range Notes XR Chest PA and Lateral (Rou megan CXR) * Reviewed date:10/06/2024 09:08:48 AM Interpretation: Performing Lab: Notes/Report: INFLUENZA A AND B AG Reviewed date:08/25/2024 08:13:30 PM Interpretation: Performing Lab: Notes/Report: [facility] , Influenza Virus A Antigen Negative [...] Performing Lab: see note ML - [facility] LB Blood Culture 1 Reviewed date:08/31/2024 01:16:26 PM Interpretation: Performing Lab: Notes/Report: [facility] , Blood Culture 1 See Below For Report Blood Culture 1 NG5D NO GROWTH AT 5 DAYS.^NO GROWTH AT 5 DAYS. Performing Lab: see note ML - [facility] LB Aerobe ID + Suscept Reviewed date:08/31/2024 01:16:26 PM Interpretation: Performing Lab: Notes/Report: [facility] , Aerobe ID + Suscept See Below For Report Aerobe ID + Suscept O:STA Isolated Organism: 1.1 Antibiotic Interpretation EZEQUIEL Status Aerobe ID + Suscept *ABNORMAL* Aerobe ID + Suscept O:STA Isolated Organism: 1.1 Antibiotic Interpretation EZEQUIEL Status Aerobe ID + Suscept Gram positive cocci Aerobe ID + Suscept O:STA Isolated Organism: 1.1 Antibiotic Interpretation EZEQUIEL Status Aerobe ID + Suscept *ABNORMAL* Aerobe ID + Suscept O:STA Isolated Organism: 1.1 Antibiotic Interpretation EZEQUIEL Status Aerobe ID + Suscept Received pediatric b ottle only. Aerobe ID + Suscept O: Isolated Organism: 1.1 Antibiotic Interpretation EZEQUIEL Status Aerobe ID + Suscept Identification and sensitivities to follow. Aerobe ID + Suscept O: Isolated Organism: 1.1 Antibiotic Interpretation EZEQUIEL Status Aerobe ID + Suscept Organism: Staphyloco ccus warneri : Aerobe ID + Suscept O:STA Isolated Organism: 1.1 Antibiotic Interpretation EZEQUIEL Status [...] + Suscept Ceftaroline Aerobe ID + Suscept O:STA Isolated Organism: 1.1 Antibiotic Interpretation EZEQUIEL Status Aerobe ID + Suscept Received pediatric b ottle only. Aerobe ID + Suscept O:STA Isolated Organism: 1.1 Antibiotic Interpretation EZEQUIEL Status Aerobe ID + Suscept Staphylococcus warneri Aerobe ID + Suscept O:STA Isolated Organism: 1.1 Antibiotic Interpretation EZEQUIEL Status Aerobe ID + Suscept See Below For Report Aerobe ID + Suscept O: Isolated Organism: 1.1 Antibiotic Interpretation EZEQUIEL Status Aerobe ID + Suscept Performed at: [facility] Aerobe ID + Suscept O: Isolated Organism: 1.1 Antibiotic Interpretation EZEQUIEL Status Aerobe ID + Suscept [address] [place], [place] [id number] Aerobe ID + Suscept O: Isolated Organism: 1.1 Antibiotic Interpretation EZEQUIEL Status Aerobe ID + Suscept Clinical Nutritionist: Rosemary Xiong PhD, Phone: [phone] Aerobe ID + Suscept O: Isolated Organism: [...] Vancomycin S F Aerobe ID + Suscept O:STAWAR Isolated Organism: 1.1 Antibiotic Interpretation EZEQUIEL Status Aerobe ID + Suscept Clindamycin R F Aerobe ID + Suscept O:STAWAR Isolated Organism: 1.1 Antibiotic Interpretation EZEQUIEL Status Performing Lab: see note LC - [facility] LB SEE REPORT - College Counselor Id information not found for OBX-specific web producer legend SARS-CoV-2 Ag* Reviewed date:08/25/2024 08:13:30 PM Interpretation: Performing Lab: Notes/Report: [facility] , SARS-CoV-2 Ag NEGATIVE NEGATIVE This [...] Performing Lab: see note ML - [facility] LB ECG 12 lead Reviewed date:08/26/2024 02:31:12 PM Interpretation: Performing Lab: Notes/Report: Source Facility: [facility]-[address] [place] [address] [place] [address] Electrocardiograph Report Signed Patient: MADHURI MARTINEZ MR#: [id number] : 1980 Acct:[id number] Age/Sex: 44 / F ADM Date: 08/25/24 Loc: MS 215-[address]: Bipin Martell M.D. Ordering Physician: Margarito Santamaria M.D. Date of Service: 08/25/24 Procedure(s): ECG 12 lead Accession Number(s): [id number] cc: [facility] Test Date: 2024-08-25 Pat Name: MADHURI MARTINEZ Department: Room: [facility] Gender: Female Oven Stripper: : 1980 Requested By: 1030 Order Number: [id number] Reading MD: YOLANDE NGUYEN M.D. Measurements Intervals [place] Rate: 108 P: 73 MD: 162 QRS: 91 QRSD: 90 T: 56 [...] M.D. Dictated By: YOLANDE NGUYEN Signed By: 08/25/242142 DD/ TD/TT: Assurance Associate: [place] [address] Electrocardiograph Report Signed Patient: ANDREA MARTINEZ MR#: [id number] : 1980 Acct:[id number] Age/Sex: 44 / F ADM Date: 08/25/24 Loc: MS 215-[address]: Saw Martell M.D. Ordering Physician: Margarito Santamaria M.D. Date of Service: 08/25/24 Procedure(s): ECG 12 lead Accession Number(s): [id number] cc: [facility] Test Date: 2024-08-25 Pat Name: MADHURI DOZIER Department: 37 Room: [facility] Gender: Female Oven Stripper: : 1980 Requ ested By: 1030 Order Number: [id number] Reading MD: YOLANDE NGUYEN M.D. Measurements Intervals [place] Rate: 108 P: 73 MD: 162 QRS: 91 QRSD: 90 T: 56 [...] Signed By: 08/25/24 2143 DD/ 0728 TD/TT: Assurance Associate: CBC AUTO DIFF Reviewed date:09/27/2024 11:59:18 AM Interpretation: Performing Lab: Notes/Report: [facility] , White Blood Count 5.5 4.0-11.0 [...] Performing Lab: see note ML - [facility] LB PROF 14(COMP METB) Reviewed date:09/27/2024 11:59:18 AM Interpretation: Performing Lab: Notes/Report: [facility] , Sodium 143 136-145 mmol/L Potassium [...] Globulin Ratio 1.4 Performing Lab: see note ML - [facility] LB PROLACTIN Reviewed date:09/29/2024 03:46:24 PM Interpretation: Performing Lab: Notes/Report: [facility] , Prolactin 10.4 4.8-33.4 ng/mL Performing Lab: see note LC - [facility] LB T4 Reviewed date:09/27/2024 11:59:18 AM Interpretation: Performing Lab: Notes/Report: [facility] , T4 Thyroxine 7.70 4.80-13.90 ug/dL Performing Lab: see note ML - [facility] LB TSH Reviewed date:09/27/2024 11:59:18 AM Interpretation: Performing Lab: Notes/Report: [facility] , Thyroid Stimulating Hormone 0.699 0.358-3.740 uIU/mL Performing Lab: see note - [facility] LB Progesterone Reviewed date:09/29/2024 03:46:24 PM Interpretation: Performing Lab: Notes/Report: [facility] , Progesterone 0.1 . ng/mL Follicular phase 0.1 - 0.9 Luteal phase 1.8 - 23.9 Ovulation phase 0.1 - 12.0 First trimester 11.0 - 44.3 Second trimester 25.4 - 83.3 Third trimester 58.7 - 214.0 Postmenopausal 0.0 - 0.1 Performed at: - [facility] [id number] Clinical Nutritionist: Bryce Xiong PhD, Phone: [phone] Performing Lab: see note LC - [facility] LB FSH Reviewed date:09/29/2024 03:46:24 PM Interpretation: Performing Lab: Notes/Report: [facility] , FSH 71.8 . mIU/mL Adult Female Range Follicular phase 3.5 - 12.5 Ovulation phase 4.7 - 21.5 Luteal phase 1.7 - 7.7 Postmenopausal 25.8 - 134.8 Performing Lab: see note LC - [facility] LB Estradiol Reviewed date:09/29/2024 03:46:24 PM Interpretation: Performing Lab: Notes/Report: [facility] , Estradiol 11.2 . pg/mL Adult Female Range Follicular phase 12.5 - 166.0 Ovulation phase 85.8 - 498.0 Luteal phase 43.8 - 211.0 Postmenopausal <6.0 - 54.7 1st trimester 215.0 - >4300.0 Twin ECLIA methodology Performing Lab: see note LC - [facility] LB XR chest 2V Reviewed date:10/06/2024 10:15:32 AM Interpretation: Performing Lab: Notes/Report: Source Facility: [place] [address] XRay Report Signed Patient: MADHURI MARTINEZ MR#: [id number] : 1980 Acct:[id number] Age/Sex: 44 / F ADM Date: 10/06/24 Loc: RAD Attending Dr: Soumya Alvarado D.O. Ordering Physician: Soumya Alvarado D.O. Date of Service: 10/06/24 Procedure(s): XR chest 2V Accession Number(s): [id number] cc: Bipin Martell M.D.; Soumya Alvarado D.O. [place] [address] Patient Name: MADHURI MARTINEZ MRN: [facility]:[id number] date: 1980 Sex: F Assigned Patient Location: [facility] Current Patient Location: RAD Accession/Order Number: [id number] Exam Date: 10/06/2024 08:54 Report Date: 10/06/2024 [...] Wang M.D. 10/06/2024 8:56 AM Dictation Location: [place] [address] Electronically authenticated by: [id number] Y Date: 10/06/2024 08:56 Dictated By: Anayeli Wang M.D. Signed By: 10/06/24 0858 DD/ 0856 TD/TT: Assurance Associate: [place] [address] XRay Report Signed Patient: ANDREA MARTINEZ MR#: [id number] : 1980 Acct:[id number] Age/Sex: 44 / F ADM Date: 10/06/24 Loc: RAD Attending Dr: Soumya Alvarado D.O. Ordering Physician: Soumya Alvarado D.O. Date of Service: 10/06/24 Procedure(s): XR chest 2V Accession Number(s): [id number] cc: Bipin Martell M.D. ; Soumya Alvarado D.O. [place] [id number] Patient Name: MADHURI MARTINEZ MRN: [id number] date: 1980 Sex: F Assigned Patient Location: [facility] Current Patient Loca tion: RAD Accession/Order Numb er: [id number] Exam Date: 10/06/2024 08:54 Report Date: 10/06/2024 08:56 At the request of: SOUMYA CHRISTIANO HOWARD Procedure: XR chest 2V PA AND LATERAL [...] Wang M.D. 10/06/2024 8:56 AM Dictation Location: [place] [address] Electronically authenticated by: [id number] Y Date: 10/06/2024 08:56 Dictated By: Anayeli Wang M.D. Signed By: 10/06/24 0858 DD/ 0856 TD/TT: Assurance Associate: LIPID PROFILE Reviewed date:09/27/2024 11:59:18 AM Interpretation: Performing Lab: Notes/Report: [facility] , Triglycerides 39 <=150 mg/dL Cholesterol [...] Performing Lab: see note ML - [facility] LB IRON Reviewed date:09/27/2024 11:59:18 AM Interpretation: Performing Lab: Notes/Report: [facility] , Iron 93.0 50.0-170.0 ug/dL Performing Lab: see note ML - [facility] LB INSULIN Reviewed date:09/30/2024 04:14:01 PM Interpretation: Performing Lab: Notes/Report: [facility] , Insulin 13.5 2.6-24.9 uIU/mL Performed at: - [facility] [address] [id number] Clinical Nutritionist: Bryce Xiong PhD, Phone: [phone] Performing Lab: see note LC - [facility] LB GLYCOHEMOGLOBIN A1C Reviewed date:09/27/2024 11:59:18 AM Interpretation: Performing Lab: Notes/Report: [facility] , Glycohemoglobin A1C 6.1 4.5-6.2 % ADA RECOMMENDED LIMIT 4.0 - 6.0 ADA THERAPEUTIC TARGET < 7.0 ACTION SUGGESTED > 7.0 Estimated Average Glucose 128 Performing Lab: see note ML - [facility] FREE T3 Reviewed date:09/27/2024 11:59:18 AM Interpretation: Performing Lab: Notes/Report: [facility] , Free T3 2.98 2.18-3.98 pg/mL Performing Lab: see note ML - [facility] LB RT pulmonary function test Reviewed date:10/01/2024 09:37:29 AM Interpretation: Performing Lab: Notes/Report: Source Facility: [facility]-[address] [place] [address] Respiratory Report Signed Patient: MADHURI MARTINEZ MR#: [id number] : 1980 Acct:[id number] Age/Sex: 44 / F ADM Date: 09/25/24 Loc: CARD Attending Dr: Soumya Alvarado D.O. Ordering Physician: Soumya Alvarado D.O. Date of Service: 09/25/24 Procedure(s): RT pulmonary function test Accession Number(s): [id number] cc: [facility] Test Date: 2024-09-25 Pat Name: MADHURI MARTINEZ Department: Room: - Gender: Female Oven Stripper: Edwin Banerjee RRT : 1980 Requested By: Soumya Alvarado Order Number: [id number] Reading MD: Soumya Alvarado Interpretive Statements Pulmonary [...] Dictated By: Soumya Alvarado D.O. Signed By: 10/01/2420 DD/ 1311 TD/TT: Assurance Associate: [place] [address] Respiratory Report Signed Patient: ANDREA MARTINEZ MR#: [id number] : 1980 Acct:[id number] Age/Sex: 44 / F ADM Date: 09/25/24 Loc: CARD Attending Dr: Soumya Alvarado D.O. Ordering Physician: Soumya Alvarado D.O. Date of Service: 09/25/24 Procedure(s): RT pulmonary function test Accession Number(s): [id number] cc: [facility] Test Date: 2024-09-25 Pat Name: MADHURI DOZIER Department: 37 Room: - Gender: Female Oven Stripper: Edwin Banerjee RRT : 1980 Requ ested By: Soumya Alvarado Order Number: [id number] Reading MD: Soumya Alvarado Interpretive Statements Pulmonary [...] Signed By: 10/01/24 0920 DD/ 1311 TD/TT: Assurance Associate: Gram Stain Evaluation Reviewed date:09/01/2024 07:46:23 AM Interpretation: Performing Lab: Notes/Report: [facility] , Gram Stain Evaluation See Below For Report Gram Stain Evaluation This specimen is of good quality and is acceptable for routine Gram Stain Evaluation bacterial culture. Gram Stain Evaluation This specimen is of good quality and is acceptable for routine Performing Lab: see note LC - [facility] LB Lower Respiratory Culture Reviewed date:09/01/2024 07:46:23 AM Interpretation: Performing Lab: Notes/Report: [facility] , Lower Respiratory Culture See Below For Report Lower Respiratory Culture WILL FOLLOW Lower Respiratory Culture Routine respiratory lindsey Lower Respiratory Culture WILL FOLLOW Lower Respiratory Culture Performed at: - [facility] [place] Lower Respiratory Culture WILL FOLLOW Lower Respiratory Culture [address] [place] [id number] Lower Respiratory Culture WILL FOLLOW Lower Respiratory Culture Clinical Nutritionist: Bryce Xiong PhD, Phone: [phone] Lower Respiratory Culture WILL FOLLOW Performing Lab: see note LC - [facility] LB SEE REPORT - College Counselor Id information not found for OBX-specific web producer legend Gram Stain Evaluation Reviewed date:08/31/2024 01:16:26 PM Interpretation: Performing Lab: Notes/Report: [facility] , Gram Stain Evaluation See Below For Report Gram Stain Evaluation This specimen is of good quality and is acceptable for routine Gram Stain Evaluation bacterial culture. Gram Stain Evaluation This specimen is of good quality and is acceptable for routine Performing Lab: see note LC - [facility] LB Result 4 Reviewed date:09/01/2024 07:46:23 AM Interpretation: Performing Lab: Notes/Report: [facility] , Result 4 See Below For Report Result 4 TURRET LATHE TENDER Performing Lab: see note LC - [facility] LB Result 3 Reviewed date:09/01/2024 07:46:23 AM Interpretation: Performing Lab: Notes/Report: [facility] , Result 3 See Below For Report Result 3 TURRET LATHE TENDER Performing Lab: see note LC - [facility] LB Result 2 Reviewed date:09/01/2024 07:46:23 AM Interpretation: Performing Lab: Notes/Report: [facility] , Result 2 See Below For Report Result 2 TURRET LATHE TENDER Performing Lab: see note LC - [facility] LB Result 1 Reviewed date:09/01/2024 07:46:23 AM Interpretation: Performing Lab: Notes/Report: [facility] , Result 1 See Below For Report Result 1 Rare gram positive cocci Performing Lab: see note LC - [facility] LB Epithelial Cells Reviewed date:09/01/2024 07:46:23 AM Interpretation: [...] Lab: see note LC - [facility] LB RSV Reviewed date:08/25/2024 08:13:30 PM Interpretation: Performing Lab: Notes/Report: [facility] , Respiratory Syncytial Virus Not Detected NOT DETECTE Performing Lab: see note - [facility] LB PROF CHEM 8 (BAS METB) Reviewed date:08/25/2024 08:13:30 PM Interpretation: Performing Lab: Notes/Report: [facility] , Sodium 143 136-145 mmol/L Potassium [...] 9.3 8.5-10.1 mg/dL Performing Lab: see note - [facility] LB CBC AUTO DIFF Reviewed date:08/25/2024 08:13:30 PM Interpretation: Performing Lab: Notes/Report: [facility] , White Blood Count 7.7 4.0-11.0 [...] Performing Lab: see note ML - [facility] LB BLOOD CULTURE ID PANEL Reviewed date:08/26/2024 02:31:12 PM Interpretation: Performing Lab: Notes/Report: [facility] , CTX-M NOT APPLICABLE NOT DETECTE [...] DETECTE Performing Lab: see note ML - [facility] MM tomosynthesis screening B I Reviewed date:01/13/2024 09:10:38 PM Interpretation: Performing Lab: Notes/Report: Source Facility: [place] [address] Mammography Report Signed Patient: MADHURI MARTINEZ MR#: [id number] : 1980 Acct:[id number] Age/Sex: 43 / F ADM Date: 01/08/24 Loc: MAMMO Attending Dr: Sherri Reynolds Ordering Physician: Sherri Reynolds Results: Date of Service: 01/08/24 Follow Up: Procedure(s): MM tomosynthesis screening BI Accession Number(s): [id number] cc: Bipin Perry M.D. Patient Name: MADHURI MARTINEZ MR#: [id number] : 1980 Exam Date: 01/08/2024 Ordering Doctor: [...] uterine cancer at age 40. LOCATION: [facility] BREAST COMPOSITION: The breasts are heterogeneously [...] M.D. Signed By: 01/11/24913 DD/ 2 TD/TT: Assurance Associate: [place] [address] Mammography Report Signed Patient: ANDREA MARTINEZ MR#: [id number] : 1980 Acct:[id number] Age/Sex: 43 / F ADM Date: 01/08/24 Loc: MAMMO Attending Dr: Sherri Reynolds Ordering Physician: Sherri Reynolds Results: Date of Service: 07/28 Follow Up: Procedure(s): MM tomosynthesis screening BI Accession Number(s): [id number] cc: Bipin Perry M.D. Patient Name: MADHURI MARTINEZ MR#: [id number] : 1980 Exam Date: 01/08/2024 Ordering Doctor: CHAYA Reynolds . RADIOLOGY REPORT PROCEDURE: MM TOMOSYNTHESIS SCREENING BI COMPARISON: MG MAMM SCREEN 3D FAISAL CAD, 02/01/2022. INDICATIONS: Screeni ng mammogram Calculator Name [facility] Breast Cancer Risk Assessment Tool 5 Year Breast Cancer Risk 0.50% Lifetime Breast Canc er Risk 7.10% Personal Breast Cancer No Personal Ovarian Can cer No Treatments None Family Cancers Mothe r with lung/brain cancer at age 57; Grandmother-maternal with uterine cancer at age 40. LOCATION: [facility] BREAST COMPOSITION: The breasts are heterogeneously dense,which [...] M.D. Signed By: 01/11/24913 DD/ 2 TD/TT: Assurance Associate: Erwin CEE HPV,Age Gdln Reviewed date:01/09/2024 07:39:05 PM Interpretation: Performing Lab: Notes/Report: BRUSH-SPATULA CERVIX ENDOCERVIX [facility] , Age Gdln ACOG Testing Note . TESTS RESULT FLAG UNITS REF RANGE LAB Clinician Provided Cytology Information Source.............Cer vix;Endocervix No. of containers..01 ThinPrep Vial Age Algo ACOG Amirah... 30-65 01 FLAG LEGEND: L-Low Normal,H-High Normal,LL-Alert Low,HH-Alert High <-Panic Low,>-Panic High,A-Abnormal,AA-Cri tical Abnormal Performed at: 01 [facility] [address] [place] [address] Zainab Mckeon MD, IGP, Aptima HPV, rfx 16/18,45 Note . TESTS RESULT FLAG UNITS REF RANGE LAB DIAGNOSIS: 02 NEGATIVE FOR INTRAEPITHELIAL LESION OR MALIGNANCY. Specimen adequacy: 02 Satisfactory for evaluation. No endocervical component is identified. Performed by: Charles Cabrera, Telephone Answering Service Operator (ASCP) . 02 Note: Note 02 [...] Low,>-Panic High,A-Abnormal,AA-Cri tical Abnormal Performed at: [address] [address] Zainab Mckeon MD, HPV Aptima Negative Negative This nucleic acid amplification test detects fourteen high- risk HPV types (16,18,31,33,35,39,45, 51,52,56,58,59,66,68) without differentiation. Performed at: =[facility] [id number] Clinical Nutritionist: Zainab Mckeon MD, Phone: [phone] Performed at: [address] [id number] Clinical Nutritionist: Zainab Mckeon MD, Phone: [phone] Performing Lab: see note - [facility] LB [id number] SCREENIN G SWAB Reviewed date:09/22/2024 08:50:50 AM Interpretation: Performing Lab: Notes/Report: CA echo doppler complete Reviewed date:11/26/2024 07:46:07 PM Interpretation: Performing Lab: Notes/Report: Source Facility: [place] [address] Cardiology Report Signed Patient: MADHURI MARTINEZ MR#: [id number] : 1980 Acct:[id number] Age/Sex: 44 / F ADM Date: 11/26/24 Loc: CARD Attending Dr: YOLANDE NGUYEN Ordering Physician: YOLANDE NGUYEN Date of Service: 11/26/24 Procedure(s): CA echo doppler complete Accession Number(s): [id number] cc: Bipin Martell M.D.; YOLANDE NGUYEN Patient Name: MADHURI MARTINEZ MR#: [id number] : 1980 Exam Date: 11/26/2024 Ordering Doctor: DR YOLANDE NGUYEN M.D. ECHOCARDIOGRAM REPORT PROCEDURE: CA ECHO DOPPLER COMPLETE INDICATIONS: Chest pain, dyspnea, diabetes COMPARISON: None. DESCRIPTION: COMPLETE ECHOCARDIOGRAM Real-time transthoracic echocardiography with 2D, M-mode, spectral and color flow Doppler performed. QUALITY: Technical quality was good. LEFT VENTRICLE: Normal chamber size. Normal left ventricular wall thickness. LV EF: Normal left ventricular ejection fraction, (>55%). DIASTOLIC: Normal diastolic function. ATRIAL SEPTUM: Visually appears intact. LEFT ATRIUM: Normal chamber size. RIGHT ATRIUM: Normal chamber size. RIGHT VENTRICLE: Normal chamber size. Normal right ventricular systolic function. TRICUSPID VALVE: Normal mobility and thickness. No stenosis with trivial regurgitation. No evidence of pulmonary hypertension. RVSP 18 mmHg MITRAL VALVE: Normal mobility and thickness. No evidence of mitral valve stenosis. There is no mitral annular calcification. No mitral regurgitation. AORTIC VALVE: Normal trileaflet appearance. No visible sclerosis. Normal leaflet mobility. No evidence of aortic valve stenosis. No aortic regurgitation. AORTIC ROOT: Normal diameter and appearance, measuring 3.5 cm. The ascending aorta is normal in size, measuring 3.3 cm. PULMONIC VALVE: Normal thickness and mobility. No stenosis. Trivial regurgitation. PERICARDIUM: No evidence of pericardial effusion. IVC: Collapses with inspiration. PLEURA: CONCLUSION: 1. Normal ventricular size and systolic function. Estimated LVEF is 60-65%. 2. Normal diastolic function. 3. No significant valvular dysfunction. 4. Normal right-sided pressures. Adult Echocardiography Procedure Report Left Ventricle LVEDD (3.7 - 5.6 cm): 4.59 cm LVESD (2.2 - 4.0 cm): 3.35 cm LVIVS thickness (0.6 - 1.2 cm): 0.99 cm LVPW thickness (0.5 - 1.0 cm): 0.84 cm e': 0.16 m/s E - e': 6.67 LVOT Max Gradient: 2.71 mm[Hg] LVOT Area (cm2): 0.82 m/s Peak Velocity (LVOT): 0.82 m/s Mean Velocity (LVOT): 0.58 m/s LVOT Diameter 2.34 cm Left Ventricular Ejection Fraction: 60-65 % Left Atrium LA Volume Index (2D A2C): 27.79 ml/m2 Left Atrium Systolic Dimension: 3.74 cm Mitral Valve MV E to A Ratio: 1.97 Mitral Valve A-Wave Peak Velocity: 0.56 m/s Mitral Valve E-Wave Peak Velocity: 1.10 m/s Right Ventricle Aorta AO Root Diam: 3.51 cm Ascending Ao Diam: 3.33 cm Aortic Valve AoV Area (Peak Leon): 3.31 cm2, 3.31 cm2 AoV Area (VTI): 3.46 cm2, 3.46 cm2 Peak Velocity(Antegrade Flow): 1.07 m/s Peak Gradient(Antegrade Flow): 4.61 mm[Hg] Mean Velocity(Antegrade Flow): 0.72 m/s Mean Gradient(Antegrade Flow): 2.39 mm[Hg] Velocity Time Integral: 25.46 cm Tricuspid Valve Peak Velocity (Regurgitant Flow): 1.94 m/s Pulmonic Valve Mean Gradient: 2.22 mm[Hg] Mean Velocity: 0.70 m/s Peak Velocity: 0.98 m/s Peak Gradient: 3.87 mm[Hg] Right Atrium Right Atrium Systolic Pressure: 33.04 ml, 33.04 ml Dictated by: Yolande Nguyen M.D. on 11/26/2024 at 18:47 Approved by: Yolande Nguyen M.D. on 11/26/2024 at 18:49 Dictated By: YOLANDE NGUYEN Signed By: 11/26/24 185 DD/ 48 TD/TT: Assurance Associate: [place] [address] Cardiology Report Signed Patient: ANDREA MARTINEZ MR#: [id number] : 1980 Acct:[id number] Age/Sex: 44 / F ADM Date: 11/26/24 Loc: CARD Attending Dr: YOLANDE NGUYEN Ordering Physician: YOLANDE NGUYEN Date of Service: 11/26/24 Procedure(s): CA ech o doppler complete Accession Number(s): [id number] cc: Bipin Martell M.D. ; YOLANDE NGUYEN Patient Name: MADHURI MARTINEZ MR#: [id number] : 1980 Exam Date: 11/26/2024 Ordering Doctor: DR YOLANDE NGUYEN M.D. ECHOCARDIOGRAM REPORT PROCEDURE: CA ECHO DOPPLER COMPLETE INDICATIONS: Chest p ain, dyspnea, diabetes COMPARISON: None. DESCRIPTION: COMPLET E ECHOCARDIOGRAM Real-time transthoracic echocardiography wit h 2D, M-mode, spectral and color flow Doppler performed. QUALITY: Technical quality was good. LEFT VENTRICLE: Norm al chamber size. Normal left ventricular wall thickness. LV EF: Normal left ventricular ejection fraction, (>55%). DIASTOLIC: Normal diastolic function. ATRIAL SEPTUM: Visua lly appears intact. LEFT ATRIUM: Normal chamber size. RIGHT ATRIUM: Normal chamber size. RIGHT VENTRICLE: Nor mal chamber size. Normal right ventricular systolic function. TRICUSPID VALVE: Nor mal mobility and thickness. No stenosis with trivial regurgitation. No evidence of pulmonary hypertension. RVSP 18 mmHg MITRAL VALVE: Normal mobility and thickness. No evidence of mitral valve stenosis. There is n o mitral annular calcification. No mitral regurgitation. AORTIC VALVE: Normal trileaflet appearance. No visible sclerosis. Normal leaflet mobility. No evidence of aortic valve stenosis. No aortic regurgitation. AORTIC ROOT: Normal diameter and appearance, measuring 3.5 cm. The ascending aorta is n ormal in size, measuring 3.3 cm. PULMONIC VALVE: Norm al thickness and mobility. No stenosis. Trivial regurgitation. PERICARDIUM: No peter dence of pericardial effusion. IVC: Collapses with inspiration. PLEURA: CONCLUSION: 1. Normal ventricula r size and systolic function. Estimated LVEF is 60-65%. 2. Normal diastolic function. 3. No significant valvular dysfunction. 4. Normal right-side d pressures. Adult Echocardiograp hy Procedure Report Left Ventricle LVEDD (3.7 - 5.6 cm) : 4.59 cm LVESD (2.2 - 4.0 cm) : 3.35 cm LVIVS thickness (0.6 - 1.2 cm): 0.99 cm LVPW thickness (0.5 - 1.0 cm): 0.84 cm e': 0.16 m/s E - e': 6.67 LVOT Max Gradient: 2 .71 mm[Hg] LVOT Area (cm2): 0.82 m/s Peak Velocity (LVOT) : 0.82 m/s Mean Velocity (LVOT) : 0.58 m/s LVOT Diameter 2.34 cm Left Ventricular Eje ction Fraction: 60-65 % Left Atrium LA Volume Index (2D A2C): 27.79 ml/m2 Left Atrium Systolic Dimension: 3.74 cm Mitral Valve MV E to A Ratio: 1.97 Mitral Valve A-Wave Peak Velocity: 0.56 m/s Mitral Valve E-Wave Peak Velocity: 1.10 m/s Right Ventricle Aorta AO Root Diam: 3.51 cm Ascending Ao Diam: 3 .33 cm Aortic Valve AoV Area (Peak Leon): 3.31 cm2, 3.31 cm2 AoV Area (VTI): 3.46 cm2, 3.46 cm2 Peak Velocity(Antegr irwin Flow): 1.07 m/s Peak Gradient(Antegr irwin Flow): 4.61 mm[Hg] Mean Velocity(Antegr irwin Flow): 0.72 m/s Mean Gradient(Antegr irwin Flow): 2.39 mm[Hg] Velocity Time Integr al: 25.46 cm Tricuspid Valve Peak Velocity (Regurgitant Flow): 1.94 m/s Pulmonic Valve Mean Gradient: 2.22 mm[Hg] Mean Velocity: 0.70 m/s Peak Velocity: 0.98 m/s Peak Gradient: 3.87 mm[Hg] Right Atrium Right Atrium Systoli c Pressure: 33.04 ml, 33.04 ml Dictated by: Yolande Nguyen M.D. on 11/26/2024 at 18:47 Approved by: Yolande Nguyen M.D. on 11/26/2024 at 18:49 Dictated By: YOLANDE NGUYEN Signed By: 11/26/24 817 DD/ 9949 TD/TT: Assurance Associate: GAGE, Flu A+B IH Reviewed date:08/25/2024 08:13:30 PM Interpretation: Performing Lab: Notes/Report: COVID neg FLU A neg FLU B neg Control pos Reason For Referral Reason Chest pain Diagnosis 1 Chest pain, unspecif ied (R07.9) Referral Organization [facility] [place] Referring Provider First Name Soumya Referring Provider Last Name Christiano Referring Provider Speciality Pulmonolog y Referred Provider Specialty Cardiology General Notes Juanito Yu 10/06 09:47:08 AM >Referral taken to [facility] and given to Aimee Renae Riley 10/09/2024 11:18:30 AM >I called and spoke with Kim at [facility] Cardiology. Patient was contacted and scheduled for 10/20/2024 at 1045., Juanito Yu 10/09/2024 11:18:48 AM >Correction: 10/20/2024 at 1545 [...] Risk Notes Problem Uncomplicated severe persistent asthma (015904414) Severe persistent asthma, uncomplicated (J45.50) Active confirmed Problem 221131875 snf (current) use of inhaled steroids (Z79.51) Active confirmed Problem Obesity (573912095) Obesity (E66.9) Active confirmed Problem Obstructive sleep apnea syndrome (25132765) RASHAD (obstructive sleep apnea) (G47.33) Active confirmed Problem Well adult (330802337) Well adult (Z00.00) Active confirmed Problem Community acquired pneumonia (996728029) Community acquired pneumonia (J18.9) Active confirmed Problem Emphysema (51707487) 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) Active confirmed Problem History of endocrine disorder (360998586) History of diet-controlled diabetes (Z86.39) Active confirmed Problem 19898131 Suicide attempt, initial encounter (T14.91XA) Active confirmed [...] Date Performed Result Body Sit e PFT (79947, 78115, 00061) 09/08/2024 09/25/2024 N/A Encounters Encounter Location Date Provider Diagnosis [facility] [address] [place] [address] 05/21/2024 Edil Hoy Acute non-recurrent sinusitis, unspecified location J01.90 and Nasal congestion R09.81 [facility] [address] [place] [address] 09/08/2024 Soumya Alvarado Severe persistent asthma, uncomplicated J45.50 ; Peripheral eosinophilia D72.19 ; Lung bullae J43.9 ; Community acquired pneumonia J18.9 ; RASHAD (obstructive sleep apnea) G47.33 ; watermaster (current) use of inhaled steroids Z79.51 and Obesity E66.9 [facility] [address] [place] [address] 09/26/2024 Edil Whitey Well adult Z00.00 [facility] [address] [place] [address] 07/17/2024 Edil Hoy Nasal congestion R09 .81 and Acute bronchitis, unspecified organism J20.9 [facility] [address] [place] [address] 07/30/2024 Edil Hoy Gastritis K29.70 [facility] [address] [place] [facility] [place] [address] 08/29/2024 Edil Hoy Acute bronchiolitis J21.9 [facility] [address] [place] [address] 11/03/2024 Edil Martell History of diet-controlled diabetes Z86.39 [facility] [address] [place] [address] 10/06/2024 Soumya Alvarado Severe persistent asthma, uncomplicated J45.50 ; Chest pain, unspecified R07.9 ; Community acquired pneumonia J18.9 ; Lung bullae J43.9 ; Peripheral eosinophilia D72.19 ; RASHAD (obstructive sleep apnea) G47.33 ; watermaster (current) use of inhaled steroids Z79.51 ; Obesity E66.9 and History of diet-controlled diabetes Z86.39 [facility] [address] [place] [facility] [address] 01/31/2024 Edil Martell [facility] [address] [place] [facility] [place] [address] 02/28/2024 Edil Whitey [facility] [address] [place] [place] [address] 08/26/2024 Edil Martell [facility] [address] [place] [address] 08/26/[address] [facility] [address] [place] [facility] [facility] [address] 08/28/2024 Edil Whitey Acute bronchiolitis J21.9 [facility] [address] [place] [facility] [place] [address] 08/31/2024 Edil Martell Acute bronchiolitis J21.9 and Gastritis K29.70 [facility] [address] [place] [facility] [place] [address] 09/08/2024 Edil Martell [facility] [address] [place] [facility] [place] [address] 09/27/2024 Edil jevon [facility] [address] [place] [facility] [place] [address] 09/29/2024 Edil jevon [facility] [address] [place] [address] 10/02/2024 Soumya [facility] [address] [place] [address] 10/06/2024 Soumya Mic Assessments Encounter Date Diagnosis (ICD Code) Assessment Notes Treatment Notes Treatment Clinical Notes Section Notes 05/21/2024 Acute non-recurrent sinusitis, unspecified location (ICD-10 - J01.90) Rest and drink more liquids, especially water. You may use a humidifier or vaporizer to help keep the drainage moist. Vsqx-lfc-gpbfemw Nasal Saline may help the stuffy and runny nose. Use Ibuprofen and or Tylenol as needed for fever, chills, body aches or pain. Children 5 years old should not be given xaio-hok-anfxqne cough and cold medications such as guaifenesin and dextromethorphan. If you're over age 5, you may try evge-kpn-zacduvb cold medications such as guaifenesin and dextromethorphan, [...] unremarkable, then I would suggest referral to ab initio etl developer for allergy testing (would be difficult to [...] vaporizer to help keep the drainage moist. Jszd-tvc-kfvbmzb Nasal Saline may help the stuffy and runny nose. Use Ibuprofen and or Tylenol as needed for fever, chills, body aches or pain. Children 5 years old should not be given xpeb-xsh-vbhduea cough and cold medications such as guaifenesin and dextromethorphan. If you're over age 5, you may try lscr-bnv-nyjxdls cold medications such as guaifenesin and dextromethorphan, [...] she states PCP is signing orders. 09/08/2024 watermaster (current) use of inhaled steroids (ICD-10 - Z79.51) Patient was counseled to rinse & gargle with water after inhaled corticosteroid use. 10/06/2024 RASHAD (obstructive sleep apnea) (ICD-10 - G47.33) Defer to PCP. 10/06/2024 watermaster (current) use of inhaled steroids (ICD-10 - [...] 09/26/2024 PROGESTERONE 09/26/2024 THYROID PANEL (T4/TSH/FREE T3) 5 CMP (COMP MET CHAMORRO) w/eGFR CKD-EPI 2024 CBC WITH DIFF 09/26/2024 Next Appt Details Provider Name:Soumya Alvarado, 12/31/2024 07:30:00 AM, [address] [place], [address], Insurance Providers Payer Name Payer Address Payer Phone Subscriber Number Group Number Insured Name Patient Relationship to Insured Coverage Start Date Coverage End Date [employer] PPO PLUS LOCAL PLAN [address] [place] [phone] [id number] Madhuri Martinez Self - patient is the insured 2 [...] Colonoscopy 10/07/2024 Hospitalization History Reason Date(Month/Year) Asthma Exacerbation-[facility] 08/25/2024
--- NOTE | 2024-12-03 08:02 | PC.NURSE ---
Nursing Note Cardiac Stress Test Reviewed: Medication, allergies and patient history reviewed. Stress Test: [x ] Patient tolerated stress test well. [ ] Patient unable to tolerate walking on treadmill. Switched to Lexiscan stress test. [x ] No chest pain noted per patient [ ] Chest pain that resolved prior to leaving stress lab. [x ] No dyspnea noted. [ ] Dyspnea that resolved prior to leaving stress lab. [x ] Patient left stress lab asymptomatic and hemodynamically stable. [ ] Patient taken to the Emergency Room due to non-resolving symptoms following stress test. [x ] Patient achieved target heart rate. [ ] Patient unable to achieve target heart rate. [ ] Aminophylline administered as reversal agent to Lexiscan (Regadenoson). [ ] Nitro administered. Nursing Comments:
--- NOTE | 2024-12-03 09:28 | PM.STRESS ---
Stress Test Stress Test Allergies Allergy/AdvReac Type Severity Reaction Status Date / Time benzonatate (From Tessalon Allergy Intermediate itching Verified 08/26/24 06:13 Zak) Requesting physician: YOLANDE NGUYEN Procedure: Treadmill stress test General Information: Reason for Stress Test: [Chest pain] Cardiac History and Risk Factors: [No risk factors] Resting 12 - Lead Electrocardiogram: Resting twelve-lead EKG showed normal sinus rhythm, heart rate 76 bpm, normal EKG. Resting heart rate 68 bpm, resting blood pressure 128/74 mmHg. The patient exercised for a total of 6 minutes and 47 seconds according to standard Jesus protocol reaching stage III and 9.4 METS. Exercise was terminated secondary to fatigue. Patient did not experience any change in her baseline chest pain. Peak heart rate 150 bpm which represents 85% of age predicted maximum heart rate and peak blood pressure 142/82 mmHg. The patient was monitored for a total of 6 minutes and 24 seconds into recovery phase with heart rate back to 86 bpm and blood pressure to 130/76 mmHg. EKG during exercise, at peak exercise, and during recovery phase did not show significant T or ST changes or any arrhythmias Stress Test: Protocol: [Jesus protocol] Exercise Capacity: [Above average] Blood Pressure Response: [Normal] Rhythm: [Sinus, no arrhythmia] ST - Response: [No ST changes] Patient Response: [No change in baseline EKG] Interpretation: Maximal stress test Appropriate heart rate and blood pressure response to exercise Above average exercise tolerance The stress test is negative for exercise-induced ischemic EKG changes or arrhythmias. The patient had baseline chest pain which did not change with exercise. Joel Treadwell MD, FACC
== END 2024-12-03 06:44 | disposition home or self-care (01) ==
LOC: CARD 06:44
PROVIDERS: PCP Family Medicine; Visit Provider Internal Medicine Interventional Cardiology
DX: R07.89 Other chest pain (principal)
CPT/HCPCS: 93017

== ENCOUNTER 2025-01-09 06:58 | Outpatient (OUT) | payer BC, SELFPAY ==
--- OUTSIDE RECORDS SUMMARY | 2024-10-06 03:30 | XMS_ITS ---
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 Vital Signs Weight 196.8 lbs 10/06/2024 Height 65 in 10/06/2024 Blood pressure systolic 118 mm Hg 10/07/19 25 Blood pressure diastolic 83 mm Hg 025 Temperature 96.6 degrees Fahrenheit 10/07/19 25 Heart Rate 87 /min 10/06/2024 Respiratory Rate 16 /min 10/06/2024 BMI 32.75 kg/m2 10/06/2024 Oximetry 97 % 10/06/2024 Encounters Encounter Location Date Provider Diagnosis [facility] [place] [address] [place] [address] 10/06/2024 Orestes Gerber Severe persistent asthma, uncomplicated J45.50 ; Chest pain, unspecified R07.9 ; Community acquired pneumonia J18.9 ; Lung bullae J43.9 ; Peripheral eosinophilia D72.19 ; RASHAD (obstructive sleep apnea) G47.33 ; detention (current) use of inhaled steroids Z79.51 ; [...] unremarkable, then I would suggest referral to [facility] for allergy testing (would be difficult to [...] (ICD-10 - G47.33) Defer to PCP. 10/06/2024 detention (current) use of inhaled steroids (ICD-10 - [...] unremarkable, then I would suggest referral to [facility] for allergy testing (would be difficult to [...] RASHAD (obstructive sleep apnea) Defer to PCP. detention (current) use of i nhaled steroids Patient was counseled to rinse & gargle with water after inhaled corticosteroid use. Obesity Patient's weight is inducing a restrictive pulmonary physiology. Weight loss indicated: Decrease calories, increase activity. Referrals Referral Date Details 10/06/2024 10/06/2024, Chest pa in Next Appt Details Follow Up: 3 Months, Reason: Asthma Procedure Notes * Category Sub-Category Detail Notes PFT Data: 09/25/2024-FEV1/F VC: 80%-FEV1: 102%-FVC: 103%-Bronchodilator response: Partial-RV: 82%-T%-113% Alpha-1 Antitrypsin Screening Date: 09/08/2024 Genotype: M/M Progress Notes * Madhuri GUSMAN OB:[birth year] (44 yo F)Acc No.[id number]:10/06/2024 Follow Up Patient: Madhuri PETERSEN Provider: Zari Gerber DO :1980 A ge:44 Y S ex:Female Date:10/06/2024 Address:[address] [place], [place] [id number] Pcp:Edil Martell Check In:07:26 AM ESTCheck O [...] pain occurs. She has never seen a housekeeper/laundry assistant. Reviewed AAT is normal genotype MM. MA Intake Comments:. Patient presents for a follow-up for Asthma. Patient was started on Trelegy 200 and reports great benefit.Patient states the Trelegy 200 worked better than Trelegy 100. Patient complains of SOB & Chest Pain today. Patient denies cough or wheezing today. Patient is following up after PFT performed at [facility]. 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 Modified On:09/08/2024W/U Status:confirmed Z00.00 Well adult Modified On:09/26/2024W/U Status:confirmed * Medical History: * Surgical History: T onsillectomy Cyst Removal C Section X 1 Hernia Repair Neck Surgery cholecystectomy endometrial ablation tubal ligation * Hospitalization/Major Diagno stic Procedure: A sthma Exacerbation-[facility] 08/25/2024 * Family History: F ather: [...] 50 MG Tablet 2 Oral qhs Trelegy Ellipta(Upthitawrbv-Vcbzmuwaq-Qcaocp) 200-62.5-25 MCG/ACT Aerosol Powder Breath Activated 1 [...] MG Tablet 2 Oral qhs Taking Trelegy Ellipta(Jiazerevrup-Afreqpcbq-Fpalhl) 200-62.5-25 MCG/ACT Aerosol Powder Breath Activated 1 puff Inhalation Once a day Taking Venlafaxine HCl ER 75 MG Capsule Extended Release 24 Hour Oral Taking Ventolin HFA(Albuterol Sulfate HFA) 108 (90 Base) MCG/ACT Aerosol Solution 2 puff as needed Inhalation every 4 hrs Not-Taking/PRNTrelegy Ellipta(Mjkyqpxbkox-Esivpucvq-Jwmfvx) 100-62.5-25 MCG/ACT Aerosol Powder Breath Activated 1 puff Inhalation Once a day Medication List reviewed and reconciled with the patientNot-Taking/PRN Trelegy Ellipta(Tebrnazyzoi-Dlqxytmlg-Dumwda) 100-62.5-25 MCG/ACT Aerosol Powder Breath Activated 1 [...] Reason: D rug declined by patient B [place] ACTION PLAN Above Normal BMI Follow-up D ietary management education, guidance, and counseling * Follow Up: 3 Months (Reason: Asthma) * * Sign off status: Completed Visit Status: C HK (Check Out) true * Provider: Zari Gerber DO Date: 0 10/06/2024 Generated for Juni felipe/Jasmyn/Finesseitting on: 0 01/09/2025 06:59 AM EDT History and Physical Notes * [...] is following up after PFT performed at [facility]. Patient is scheduled for a Colonoscopy tomorrow. Examination Category Sub-Category Detail Notes Category Not es Exam GENERAL APPEARANCE: Appears stated age Skin Normal Mouth [place] and moist. No o ral candidiasis Trachea [...]
--- OUTSIDE RECORDS SUMMARY | 2024-10-06 06:08 | XMS_ITS ---
Author Organization [facility] in [place] Address [address] [place] [address] Care Team Providers Care Signal Maintainer Helper Name Role Phone Edil Martell Primary Care Provider Orestes Gerber [phone] REASON FOR VISIT CXR Result Encounters Encounter Location Date Provider Diagnosis [facility] [place] [address] [place] [address] 10/06/2024 Orestes Gerber Plan Of Treatment No Information Progress Notes * Madhuri GUSMAN MDOB:[birth year] (44 yo F)Acc No.[id number]:10/06/2024 Patient: Silvia TASIA Madhuri Phillips :1980 A ge:44 Y S ex:Female Address:[address] [place] [address] * true * Date: Generated for Printi ng/Fanikolasg/eTransmitting on: 0 01/09/2025 07:00 AM EDT
--- OUTSIDE RECORDS SUMMARY | 2024-11-03 13:00 | XMS_ITS ---
Author Organization The [facility] in [place] Address [address] [place] [address] Care Team Providers Care Retail Visual Merchandiser Name Role Phone Edil Martell Primary Care Provider Allergies Allergen (clinical drug ingredient) Drug/Non Drug Allergy documented on EMR Reaction Allergy Type Onset Date Status benzonatate Benzonatate hives,swelling,i tching,rash Drug Allergy Active REASON FOR VISIT Presents to office alone for 1 month follow up on Adipex, CSA updated Medications Medication SIG (Take, Route, Frequency, Duration) Notes Start Date End Date Status Venlafaxine HCl ER 75 MG Oral for 30 Days Active Adipex-P 37.5 MG 1 tablet before liyah kfast Orally Once a day 11/03/2024 Active Protonix 40 MG 1 tablet Orally Once a day for 30 days 07/30/2024 Active traZODone HCl 50 MG 2 Oral qhs for 30 days Active Trelegy Ellipta 200-62.5-25 MCG/ACT 1 puff Inhalation Once a day for 90 days Rinse after use; Dispense #3 inhalers Active Albuterol Sulfate (2.5 MG/3ML) 0.083% 3 mL as needed Inhalation every 6 hrs 05/21/2024 Active LaMICtal 25 MG 2 tablet Orally qd f or 30 days 01/31/2024 Active Ventolin HFA 108 (90 Base) MCG/ACT 2 puff as needed Inhalation every 4 hrs for 30 01/10/2023 Active Social History Tobacco Use: Social History Observation Description Date Details (start date - stop date) Never Smoker NA - NA Tobacco Control (Standard) Question Answer Notes Tobacco use: Nonsmoker AUDIT-C (Standard) Question Answer Notes Did you have a drink containing alcohol in the p ast year? No Points 0 Interpretation Negative Vital Signs Weight 196.8 lbs 11/03/2024 Height 65 in 11/03/2024 Blood pressure systolic 122 mm Hg 11/04/19 25 Blood pressure diastolic 70 mm Hg 025 BMI 32.75 kg/m2 11/03/2024 Encounters Encounter Location Date Provider Diagnosis [facility] ([place], [place]) [address] [place] [address] 11/03/2024 Edil Martell History of diet-controlled diabetes Z86.39 Assessments Encounter Date Diagnosis (ICD Code) Assessment Notes Treatment Notes Treatment Clinical Notes Section Notes 11/03/2024 History of diet-controlled diabetes (ICD-10 - Z86.39) Plan Of Treatment Medication Medication Name Sig Start Date Stop Date Notes Adipex-P 37.5 MG 1 tablet before liyah kfast Orally Once a day 11/03/2024 Progress Notes * Madhuri GUSMAN MDOB:[birth year] (44 yo F)Acc No.[id number]:11/03/2024 Progress Note Patient: Madhuri PETERSEN Provider: Robert Martell ([facility])MD :1980 A ge:44 Y S ex:Female Date:11/03/2024 Address:[address] [place], [place] [id number] Check In:04:46 PM ESTCheck O ut:05:34 PM EST Subjective: * Chief Complaints: * P resents to office alone for 1 month follow up on AdipexCSA updated * ROS: E ENT: hearing changes d enies. v isual changes d enies.?non-healing mouth sores d enies. s wollen glands or neck lumps d enies. h oarseness d enies. s ore throat d enies. d ifficulty swallowing d enies. n ose bleeds d enies. n leoncio congestion d enies. e ar ache d enies. e ar discharge?denies. r inging in ears d enies. l ight sensitivity d enies. e ye pain d enies. b lurring d enies. e ye irritation d enies. d ouble vision d enies.?vision loss d enies. G eneral/Constitutional: Sweats: D enies. F atigue d enies. S leep problems d enies. A norexia d enies. M alaise d enies. W eight loss d enies.?Fatigue or Weakness d enies. F ever or Chills d enies. C ardiovascular: Shortness of Breath w/lying flat d enies. L ightheadedness/dizziness d enies. C hest tightness/ heavy pressure d enies. S welling of legs, ankles, or feet d enies. W aking up with shortness of breath d enies. C hest pain denies. P alpitations d enies. W eight gain d enies. R espiratory: Chronic or frequent cough d enies. C oughing up blood?denies. D ifficulty breathing d enies. P roductive cough d enies. S noring?denies. S hortness of breath that awakens from sleep (PND) d enies. C hest pain d enies. S putum production d enies. W heezing d enies. M usculoskeletal: Joint pain d enies. J oint Fluid d enies. B ack pain d enies. K nee pain d enies. N blanche pain d enies. J oint Stiffness d enies. M uscle cramps d enies. W eakness of muscles d enies. A rthritis d enies. M uscle aches d enies. P ain in shoulder(s) d enies. S wollen joints d enies. 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 Modified On:09/08/2024/U Status:confirmed Z86.39 History of diet-cont rolled diabetes Modified On:10/06/2024/U Status:confirmed D72.19 Peripheral eosinophi steven Modified On:09/08/2024U Status:confirmed J45.50 Severe persistent as thma, uncomplicated Modified On:09/08/2024U Status:confirmed G47.33 RASHAD (obstructive sle ep apnea) Modified On:09/08/2024U Status:confirmed T14.91XA Suicide attempt, ini tial encounter Modified On:09/05/2022U Status:confirmed 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 N o P oints 0 I nterpretation N egative * Medications: T akingAdipex-P(Phentermine HCl) 37.5 MG Tablet 1 tablet before breakfast Orally Once a day Albuterol Sulfate (2.5 MG/3ML) 0.083% Nebulization Solution 3 mL as needed Inhalation every 6 hrs LaMICtal(lamoTRIgine) 25 MG Tablet 2 tablet Orally qd Protonix(Pantoprazole Sodium) 40 MG Tablet Delayed Release 1 tablet Orally Once a day traZODone HCl 50 MG Tablet 2 Oral qhs Trelegy Ellipta(Netmzxrnlof-Jtnvwjpnv-Boebyj) 200-62.5-25 MCG/ACT Aerosol Powder Breath Activated 1 puff Inhalation Once a day Rinse after use; Dispense #3 inhalersVenlafaxine HCl ER 75 MG Capsule Extended Release 24 Hour Oral Ventolin HFA(Albuterol Sulfate HFA) 108 (90 Base) MCG/ACT Aerosol Solution 2 puff as needed Inhalation every 4 hrs Medication List reviewed and reconciled with the patientTaking Adipex-P(Phentermine HCl) 37.5 MG Tablet 1 tablet before breakfast Orally Once a day Taking Albuterol Sulfate (2.5 MG/3ML) 0.083% Nebulization Solution 3 mL as needed Inhalation every 6 hrs Taking LaMICtal(lamoTRIgine) 25 MG Tablet 2 tablet Orally qd Taking Protonix(Pantoprazole Sodium) 40 MG Tablet Delayed Release 1 tablet Orally Once a day Taking traZODone HCl 50 MG Tablet 2 Oral qhs Taking Trelegy Ellipta(Evcfqarpmex-Cqnckvbhe-Inagsc) 200-62.5-25 MCG/ACT Aerosol Powder Breath Activated 1 puff Inhalation Once a day Rinse after use; Dispense #3 inhalersTaking Venlafaxine HCl ER 75 MG Capsule Extended Release 24 Hour Oral Taking Ventolin HFA(Albuterol Sulfate HFA) 108 (90 Base) MCG/ACT Aerosol Solution 2 puff as needed Inhalation every 4 hrs Medication List reviewed and reconciled with the patient * Allergies: B enzonatate: hives,swelling,itching,rashno[Allergies Verified] Objective: * Vitals: W t:196.8lbs, Ht: 65 in, BP:122/70mm Hg, BMI:32.75Index, Ht-cm: 165.1 cm, Wt-k.27 kg. * Examination: P hysical Exam: GENERAL: w ell developed, well nourished, in no acute distress. HEAD: n ormocephalic/atraumatic. EYES: p upils equal, round and reactive to light, conjunctivae and sclerae normal. EARS: n o deformity or lesion of external ear, canals and TM appear normal bilaterally, TM's intact, not inflamed with normal light reflex, hearing grossly normal to conversational speech. NOSE: n o deformity, discharge, inflammation, or lesions.? MOUTH: m ucous membranes moist, normal oropharynx and posterior pharynx without lesions or exudates, tongue normal, dentition normal. NECK: n blanche supple, no masses or palpable cervical nodes, trachea midline, thyroid without nodules, masses, tenderness, or enlargement. CHEST: n o chest wall deformity, no chest wall tenderness.? LUNGS: n ormal respiratory effort and clear to auscultation, no wheezes, rales, or rhonchi, good air exchange. CARDIO: r egular rate and rhythm, normal S1 and S2, nor murmur, rub, or gallop. PULSES: n ormal capillary refill. ABDOMEN: s oft, non-distended, non-tender, no masses. MUSCULOSKELETAL: n o deformity or scoliosis noted, normal range of motion, joints normal, no erythema, edema, effusion, or ecchymosis. EXTREMITY: n o clubbing, cyanosis, edema, or deformity with normal ROM in both upper and lower bilateral extremities. NEUROLOGIC: g rossly normal. SKIN: n o rashes, ulcerations, or suspicious lesions. LYMPH NODES: n o cervical adenopathy, nodes normal. MENTAL STATUS: a lert and oriented x3, normal mood and affect. Assessment: * Assessment: 1. H istory of diet-controlled diabetes - Z86.39 (Primary) Plan: * Treatment: * Procedure Codes: * Preventive Medicine: Screenings/Counseling: B TN ACTION PLAN Above Normal BMI Follow-up D ietary management education, guidance, and counseling See treatment section of progress note for complete details of management plan. * * Sign off status: Completed Visit Status: C HK (Check Out) true * Provider: Robert Martell ([facility])MD Date: 0 11/03/2024 Generated for Printi ng/Fanikolasg/eTransmitting on: 0 01/09/2025 06:59 AM EDT History and Physical Notes * Examination Category Sub-Category Detail Notes Category Not es Physical Exam GENERAL: well developed, well nourished, in no acute distress HEAD: normocephalic/atraum atic EYES: pupils equal, round and reactive to light, conjunctivae and sclerae normal EARS: no deformity or lesi on of external ear, canals and TM appear normal bilaterally, TM's intact, not inflamed with normal light reflex, hearing grossly normal to conversational speech NOSE: no deformity, discha rge, inflammation, or lesions MOUTH: mucous membranes carlos st, normal oropharynx and posterior pharynx without lesions or exudates, tongue normal, dentition normal NECK: neck supple, no mass es or palpable cervical nodes, trachea midline, thyroid without nodules, masses, tenderness, or enlargement CHEST: no chest wall deform ity, no chest wall tenderness LUNGS: normal respiratory e ffort and clear to auscultation, no wheezes, rales, or rhonchi, good air exchange CARDIO: regular rate and rhy thm, normal S1 and S2, nor murmur, rub, or gallop PULSES: normal capillary ref ill ABDOMEN: soft, non-distended, non-tender, no masses RECTAL: MUSCULOSKELETAL: no deformity or scol iosis noted, normal range of motion, joints normal, no erythema, edema, effusion, or ecchymosis EXTREMITY: no clubbing, cyanosi s, edema, or deformity with normal ROM in both upper and lower bilateral extremities NEUROLOGIC: grossly normal SKIN: no rashes, ulceratio ns, or suspicious lesions LYMPH NODES: no cervical adenopat hy, nodes normal MENTAL STATUS: alert and oriented x 3, normal mood and affect
--- OUTSIDE RECORDS SUMMARY | 2024-12-10 07:00 | XMS_ITS ---
Author Organization The [facility] [place] Address [address] [place] [address] Care Team Providers Care Commission Clerk Name Role Phone Edil Martell Primary Care Provider [phone] Orestes Gerber [phone] REASON FOR VISIT Letter/Appointment Encounters Encounter Location Date Provider Diagnosis [facility] [address] [place] [address] 12/10/2024 Orestes Gerber Plan Of Treatment No Information Progress Notes * Madhuri GUSMAN MDOB:[birth year] (44 yo F)Acc No.[id number]:12/10/2024 Patient: Silvia TASIA Madhuri Phillips :1980 A ge:44 Y S ex:Female Address:[address] [place] [address] * true * Date: Generated for Printi ng/Fanikolasg/eTransmitting on: 0 01/09/2025 06:59 AM EDT
--- OUTSIDE RECORDS SUMMARY | 2024-12-31 03:30 | XMS_ITS ---
Author Organization The [facility] [place] Address [address] [place] [address] Care Team Providers Care Assistant Men'S Soccer Coach Name Role Phone Edil Martell Primary Care Provider Orestes Gerber [phone] REASON FOR VISIT 3m F/U - Asthma Encounters Encounter Location Date Provider Diagnosis [facility] [address] [address] 12/31/2024 Orestes Gerber Plan Of Treatment No Information Progress Notes * Madhuri GUSMAN MDOB:[birth year] (44 yo F)Acc No.[id number]:12/31/2024 UNLOCKED PROGRESS NOTE Follow Up Patient: Silvia DOZIER Madhuri Phillips Provider: Zari Gerber DO :1980 A ge:44 Y S ex:Female Date:12/31/2024 Address:[address] [place] [address] Pcp:Edil Martell Subjective: * Chief Complaints: * 1 . 3m F/U - Asthma. * Medical History: Objective: * Vitals: Assessment: Plan: * Treatment: * * Electronic signature of Terri Gerber DO on 01/09/2025 at 07:00 AM EDT Sign off status: Pending Visit Status: O FF CANC (OFFICE CANCEL) * Provider: Zari Gerber DO Date: 0 12/31/2024 Generated for Juni felipe/Jasmyn/eTransmitting on: 0 01/09/2025 07:00 AM EDT
--- OUTSIDE RECORDS SUMMARY | 2025-01-09 07:00 | XMS_ITS | Clinical Summary ---
Author Organization [facility] Address [address] 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 Active Active Problems Problem Noted Date Diagnosed [...] this topic Medical Devices Implanted Type Area Dry Primer Powder Blender Device Identifier Shelf Expiration Date Model / Serial / Lot Mesh Mesh Abdomen Procedures Procedure Name Priority Date/Time Associated Diagnosis Comments POCT GLUCOSE Routine 12/24/2023 12:13 PM EDT from Last 3 Months or Most Recently Relevant to Health Maintenance Results * POCT GLUCOSE (12/24/2023 12:13 PM EDT) POCT Glucose 99 74 - 99 mg/dL 12/24/2023 12:15 PM EDT [facility] Blood Capillary blood specimen / Unknown 12/24/2023 12:13 PM EDT 12/24/2023 12:15 PM EDT us Marcell Chiang MD LAB POINT OF CARE TE ST DOCKED DEVICE UNSOLICITED RESULTS Final Result [facility] [address] [id number] from Last 3 Months or Most Recently Relevant to Health Maintenance Insurance [facility] Advance Directives For more information, please contact: [phone] (Available ) * Full Code (Latest Code Status on File) Date Activated Date Inactivated Comments 12/24/2023 12:03 PM Question Answer Comments Plan of Care: Code Status Discussion Not Compl eted Decision Maker: Provider Rationale: Patient condition does not warra nt discussion Care Teams Certified Medical Technician Assistant Relationship Specialty Start Date End Date Bipin Martell MD [address] [facility] [place] [address] PCP - General Family Medicine 09/28/23
--- OUTSIDE RECORDS SUMMARY | 2025-01-09 07:00 | XMS_ITS | Encounter Summary ---
Author Organization [facility] Address [address] [place] [address] Phone Care Team Providers Care Division Road Supervisor Name Role Phone Bipin Martell MD Primary Care Provider [phone] Encounter Details Date Type Department Care Team (Late st Contact Info) Description 10/02/2023 Scanned Document [facility] [address] [facility] [address] [place] [address] Elizabeth Rabago, KIESHA Social History Tobacco Use Types Packs/Day Years Used Date Smoking Tobacco: Never Assessed Comments Unknown Sex and Gender Information Value Date Recorded Sex Assigned at Not on file Legal Sex Female 1:06 PM EDT Gender Identity Not on file Sexual Orientation Not on file documented as of this encounter Plan of Treatment Not on file documented as of this encounter Visit Diagnoses Not on filedocumented in this encounter Care Teams Division Road Supervisor Relationship Specialty Start Date End Date Bipin Martell MD [address] [place] [address] PCP - General Family Medicine 09/28/23 documented as of this encounter
--- OUTSIDE RECORDS SUMMARY | 2025-01-09 07:00 | XMS_ITS | Clinical Summary ---
Author Organization [facility] Address [address] [place] [address] Care Team Providers Care Dramatic Agent Name Role Phone Bipin Martell MD Primary Care Provider [phone] Allergies Active Allergy Reactions Criticality Noted Date [...] (10/20/2024): Added automatically from request for surgery [id number] Severe obesity with body mas s index (BMI) of 35.0 to 39.9 with serious comorbidity 09/25/2016 Overview (10/20/2024): 08/05/22 IMO Update Encounters Date Type Department Care Team Description 12/29/2024 3:00 PM EDT Office Visit [facility] [address] [place] [address] Mars Welch CNP Palpitations (Primary Dx); Atypical chest pain; Shortness of breath; Elevated blood pressure reading without diagnosis of hypertension 12/03/2024 Orders Only [facility] [address] [place] [address] Eddi Deras MD 10/20/2024 3:45 PM EDT Office Visit [facility] [address] [place] [address] Koffi Hooks MD Palpitations (Primary Dx); Atypical [...] drink = 0.6 oz pur e alcohol) occasional Comments Unknown Sex and Gender Information Value Date Recorded Sex Assigned at Female 12/17/2024 3:23 PM EDT Legal Sex Female 10:54 PM EDT Gender Identity Female 12/17/2024 3:23 PM EDT Sexual Orientation Heterosexual or Straight 12/05 3:23 PM EDT Last Filed Vital Signs Vital Sign Reading Time Taken Comments Blood Pressure 131/85 12/29/2024 3:03 PM EDT Pulse 66 12/29/2024 3:03 PM EDT Temperature - - Respiratory Rate - - Oxygen Saturation 100% 12/29/2024 3:03 PM EDT Inhaled Oxygen Concentration - - Weight 93.9 kg (207 lb) 12/29/2024 3:03 PM EDT Height 165.1 cm (5' 5 ) 12/29/2024 3:03 PM EDT Body Mass Index 34.45 12/29/2024 3:03 PM EDT Plan of Treatment Health Maintenance [...] 2010 Mammogram 2020 COVID-19 Vaccine (3 - 2024-2 6 season) 2025 06/02/2020, 05/05/2020 Influenza Vaccine (#1) 2025 Cervical [...] Procedure Name Priority Date/Time Associated Diagnosis Comments ROUTINE STRESS (TREADMILL ONLY) Routine 12/03/2024 12:01 PM EDT from Last 3 Months Results * Routine Stress (Treadmill Only) (12/03/2024 12:01 PM EDT) Anatomical Region Laterality Modality Other us Historical Provider CV STRESS PROCEDURES Makayla barrett Result from Last 3 Months Insurance [facility] Care Teams Dramatic Agent Relationship Specialty Start Date End Date Bipin Maretll MD [address] [facility] [address] [address] PCP - General Family Medicine 10/17/24
--- OUTSIDE RECORDS SUMMARY | 2025-01-09 07:00 | XMS_ITS | Clinical Summary ---
Author Organization [facility] Address [address] [place] [address] Care Team Providers Care International Banker Name Role Phone Unavailable Primary Care Provider [...] Contact Info) Description 01/12/2025 3:00 PM EDT Procedure Visit [facility] [address] [place] [address] Cintia Franco, STAFFING ASSOCIATE [address] [facility] [place] [address] Health Maintenance Due Date Last Done Comments [...] EDT Narrative 01/11/2024 9:14 AM EDT The [address] [address] Mammography Report Signed Patient: RAMY GUSMAN MR#: [id number] : 1980 Acct:[id number] Age/Sex: 43 / F ADM Date: 01/08/24 Loc: MAMMO Attending Dr: Sherri Reynolds Ordering Physician: Sherri Reynolds Results: Date of Service: 01/08/24 Follow Up: Procedure(s): MM tomosynthesis screening BI Accession Number(s): [id number] cc: Sherri Reynolds; Bipin Martell M.D. Patient Name: RAMY GUSMAN MR#: [id number] : 1980 Exam Date: 01/08/2024 Ordering Doctor: [...] uterine cancer at age 40. LOCATION: The [facility] BREAST COMPOSITION: The breasts are [...] M.D. Signed By: 01/11/24913 DD/ 2 TD/TT: Circus Trainer: Procedure Note Radiology, Radiologist, MD - 01/11/2024 [place] [address] Mammography Report Signed Patient: RAMY GUSMAN MMR#: [id number] : 1980Acct:[id number] Age/Sex: 43 / FADM Date: 01/08/24 Loc: MAMMO Attending Dr: Sherri Reynolds Ordering Physician: Sherri ReynoldsResults: Date of Service: 01/08/24Follow Up: Procedure(s): MM tomosynthesis screening BI Accession Number(s): [id number] cc: Bipin Perry M.D. Patient Name: RAMY GUSMAN MR#: [id number] : 1980 Exam Date: 01/08/2024 Ordering Doctor: [...] uterine cancer at age 40. LOCATION: The [facility] BREAST COMPOSITION: The breasts are [...] Fernández M.D. Signed By:01/11/24913 DD/ 2 TD/TT: Circus Trainer: Sherri [facility] Final Result * Pap Smear (01/03/2024 12:00 AM EDT) Swab Cervical swab / Unknown Pooja Nurse [facility] Ob LAB CYTOLOGY ORDERABLES Final Result EXTERNAL LAB from Last 3 Months or Most Recently Relevant to Health Maintenance [place] [address] [place] [address]
--- OUTSIDE RECORDS SUMMARY | 2025-01-09 07:00 | XMS_ITS | CCD ---
Author Organization [facility] ion [facility] Care Team Providers Care Chemist Physical Name Role Phone ABERRA, JOSEFINA Unavailable Unavailable HOUSE, JUDITH P Unavailable Unavailable HOUSE, JUDITH P Unavailable Unavailable ABERRA, JOSEFINA Unavailable Unavailable HOUSE, JUDITH P Unavailable Unavailable HOUSE, JUDITH P Unavailable Unavailable HOUSE, JUDITH P Unavailable Unavailable LI, NA Unavailable Unavailable LI, NA Unavailable Unavailable ABERRA, JOSEFINA Unavailable Unavailable MD Yaquelin Perez Primary Care Provider MD Reddy Dewitt Attending Provider [phone] Reddy Dewitt Unavailable Yaquelin Perez Primary Care Physician [phone] CHASITY BOOKER Admitting Unavailable CHASITY BOOKER Attending Unavailable CHRIS ., DR JAMISON Primary Care Unavailable CHASITY BOOKER Consulting Unavailable LUIS ., DR CHASE Admitting Unavailable LUIS ., DR CHASE Attending Unavailable HOY ., DR JAMISON Primary Care Unavailable LUIS ., DR CHASE Consulting Unavailable LUIS ., DR CHASE Admitting Unavailable LUIS ., DR CHASE Attending Unavailable HOY ., DR JAMISON Primary Care Unavailable MOBILE, DR KRYSTAL Pelaez Consulting Unavailable LUIS ., DR CHASE Consulting Unavailable CHRIS ., DR JAMISON Admitting Unavailable CHRIS ., DR JAMISON Attending Unavailable CHRIS ., DR JAMISON Primary Care Unavailable CHRIS Larios, DR JAMISON Consulting Unavailable QUINN, DR VALVERDE Admitting Unavailable QUINN, DR VALVERDE Attending Unavailable CHRIS ., DR JAMISON Primary Care Unavailable QUINN, DR VALVERDE Consulting Unavailable DR YAQUELIN PATINO Primary Care Unavailable CLARA SEN Admitting Unavailable CLARA SEN Attending Unavailable JULY, DR STELLA Paredes Consulting Unavailable CLARA SEN Consulting Unavailable CHRIS ., DR JAMISON Admitting Unavailable HOY ., DR JAMISON Attending Unavailable BRANDONY ., DR JAMISON Primary Care Unavailable CHRIS ., DR JAMISON Consulting Unavailable CHASITY BOOKER Admitting Unavailable CHASITY BOKOER Attending Unavailable CHRIS ., DR JAMISON Primary Care Unavailable MD Yaquelin Perez Primary Care Provider MD Arleth Roach Admit Provider [phone] MD Arleth Roach Attending Provider [phone] Yaquelin Perez MD Primary Care Provider Tyler [...] Primary Care Provider Unavailabl e Melissa Rivera Attending Unavaila Melissa Garcia Attending Unavaila ble SarminiMelissa Talal Referring Unavaila ble Sarmini, Melissa Taladan Attending Unavaila ble Sarmini, Melissa Talal Admitting Unavaila ble YolandaminiMelissa Attending Unavaila ble YolandaminMelissa yost Attending Unavaila YOLANDE Deutsch Attending Unavailable LOLI PACHECO Attending Unavailable Allergies Allergy Classification Reported Allergen(s) Allergy Type Date of Onset Reaction(s) Facility (9 sources) benzonatate; Translations: [benzonatate] Drug Allergy 5 Eruption of skin (disorder), Swelling (finding), Swelling (morphologic abnormality) [facility] (2 sources) benzonatate; Translations: [Di Crespo] Drug Allergy [facility] Medications Current Medications Medication Drug Class(es) [...] / thiamine 0.0333 mg/ml / vitamin b12 0.762359 mg/ml / zinc sulfate 0.333 mg/ml oral [...] qAM, # 120 cap(s), Refills(s) 6, Pharmacy: [facility] #[facility], 166, cm, 09/25/23 14:32:00 EDT, Height/Length Dosing, 79, kg, 09/25/23 14:32:00 EDT, Weight Dosing Start Date: 02/01/24 Status: Ordered Quantity: 120.0 Unit: cap(s) Repeat number: 7 Start: 08-28-2022 take 1 capsule by [facility] once daily in the morning Mesalamine (Apriso) 0.375 gram capsule,extended release 24hr Active 0.375 GM PO Every morning August 28, 2022 12:00am Start: 07-06-2022 End: 09-29-2023 take 4 capsules by mouth once daily in the morning Apriso 0.375 g oral capsule, extended release 1.5 gm = 4 cap(s), Oral, qAM, X 90 day(s), # 360 cap(s), Refills(s) 4, Pharmacy: [facility] #[id number], 166, cm, 07/06/22 13:48:00 EST, Height/Length Dosing, 98.7, kg, 07/06/22 13:48:00 EST, Weight Dosing Start Date: 07/06/22 Stop Date: 09/29/23 Status: Ordered mesalamine ER (A priso) 0.375 gram 24 hr capsule Active take 1 capsule by [facility] once daily mesalamine ER (Apriso) 0.375 g 24 hr capsule Take 1.5 g by mouth Daily Active 5 ml midazolam 1 mg/ml injection (1 source) Benzodiazepine Start: 12-24-2023 1 mg, intravenous, Once as needed, anxiety, Starting on 12/24/23 at 1900, For 1 [...] 1 (one) time per week in the residential program worker.. Active riboflavin, selam min B2, (VITAMIN B-2 ORAL) Take by mouth 1 (one) time per week in the residential program worker.. Suspended traZODone hydrochloride 50 mg oral tablet [...] Date: 09/24/24 Status: Ordered Repeat number: 1 Pwcwrzm-Nqbt-Wjsyk -Oreg-Capryl (1 source) Start: 08-28-2022 take 1 capsule by mouth once daily Pkpkiac-Wmwl-Bv uin-Wbcn-Fsbbhw Active 1 CAP PO Daily August 28, [...] 2022 12:00am take 1 capsule by [facility] every twenty-four hours in the morning [...] follow instructions per packaging and physician's handout, [facility], 166, cm, 09/24/24 8:26:00 EDT, Height/Length [...] Dr. Booker. Colonoscopy ordered by Dr. Booker., [facility]/pharmacy #[id number], 166, cm, 06/13/21 8:20:00 EST, Height/Length Dosing, 110.5, kg, 06/13/21 8:20:00 EST, Weight Dosing Start Date: 06/13/21 Status: Ordered Start: 06-13-2021 take 1 tablet by mouth once Lundy tab oral tablet See Instructions, 24 tab(s), Refill(s) 0, Please follow instructions per packaging and physician's handout. Prior to colonoscopy as instructed by Dr. Booker. Colonoscopy ordered by Dr. Booker., [facility]/pharmacy #[id number], 166, cm, 06/13/21 8:20:00 EST, [...] months, # 26 cap(s), Refills(s) 0, Pharmacy: [facility] #[id number], 166, cm, 07/11/23 8:09:00 EST, Height/Length Dosing, [...] 10-20-2024 Episodic Other aftercare (1 source) Other fdc (current) drug therapy; Translations: [OTH COMMUNITY SUPPORT SPECIALIST CURRENT DRUG THERAPY] Onset: 08-30-2022 Episodic Other [...] Test Name Value Interpretation Reference Range Facility Office Visiton 12-29-2024 Follow-up visit [id number] Yonas Martinez 1980 F Date Provider Department Center 12/29/2024 [id number] [facility] Family History Problem Relation Age of Onset Lung cancer Mother Hypertension Father Stroke Paternal Grandmother Coronary artery disease Paternal Grandmother Family Status - Relation Status Age at Mother Father Alive Paternal Grandmother Level of Service:11547 [place] OFFICE/OUTPATIENT ESTABLISHED MOD MDM 30 MIN Normal [facility] Orders Onlyon 12-03-2024 Orders Only [id number] Yonas Martinez 1980 F Date Provider Department Center 12/03/2024 [id number], BRYANT Burnett Family History Problem Relation Age of Onset Lung cancer Mother Hypertension Father Stroke Paternal Grandmother Coronary artery disease Paternal Grandmother Family Status - Relation Status Age at Mother Father Alive Paternal Grandmother Normal [facility] Gastroenterology Office/Clin ic Noteon 11-06-2024 Gastroenterology Office/Clinic [...] Apriso In full clinical and endoscopic remission IPamela, personally scribed for Melissa Rviera on 11/05/2024 08:39:34. . Follow-up With When Contact Information Miguel HAQUE, Torres Talal, GAS, MED In 1 year [address], [address] [address]- [phone] Additional Instructions: Problem List/Past Medical History Ongoing [...] 09/06/2017 Ne (more content not included)... Normal [facility] Comment on above: Result Comment: Elec tronically Signed By: Melissa Rivera MD\.br\Date and Time Signed: 11/06/24 09:41 EDT\.br\Electronically Co-Signed By: Pamela Millan MA\.br\Date and Time Co-Signed: 11/05/24 08:46 EDT Ambulatory Visit Summaryon 0 11-05-2024 Ambulatory Visit Summary Ambulatory Visit Summary JOSEPEREZ RAMY Phillips :1980 Visit Date:11/05/2024 Ambulatory Visit Instructions Your [...] Follow-Up Appointments Sunday2025 8:15 AM EDT With: Melissa Rivera MD Where: [facility] [address] [address]- You Need to Schedule the Following Appointments Follow Up with Melissa Rivera MD, GAS, MED When: In 1 year Where: [address], [address] [address]- [phone] Medications What How Much When Instructions Unchanged [...] signed up for this yet, please contact Health Information Management at [phone] to get signed up today. Language Information Language assistance services are available as needed. Fe [facility] Reminderson 10-21-2024 Reminders Reminders From: Penny Saldivar MA S To: [facility] - Reminders/Recalls; Sent: 10/21/2024 11:48:28 EDT Show up: 09/04/2025 11:48:00 EDT Subject: colon recall Due Date/Time: 10/07/2025 11:48:00 EDT Reminder/Recall [address] Rivera 10/07/24 Normal [facility] Office Visiton 10-20-2024 Follow-up visit [id number] Yonas Martinez 1980 F Date Provider Department Center 10/20/2024 Sam-YOLANDE HOOKS CARD [facility] Family History Problem Relation Age of Onset Lung cancer Mother Hypertension Father Stroke Paternal Grandmother Coronary artery disease Paternal Grandmother Family Status - Relation Status Age at Mother Father Alive Paternal Grandmother Level of Service:16241 [place] OFFICE/OP CONSLTJ NEW/EST PT MOD MDM 40 MINUTES Normal [facility] Surgical Pathology Reporton 10-10-2024 Surgical Pathology Report [address] [address]- Surgical Pathology Report Collected Date/Time: 10/07/2024 10:33 EDT Pathologist: Myke Nieto MD Received Date/Time: 10/07/2024 18:00 EDT Miguel HAQUE, Melissa Rivera MD, Melissa Talavera 07 Surgical [...] Myke Nieto MD Received Date/Time: 10/07/2024 18:00 EDT Miguel HAQUE, Melissa Rivera MD, Melissa Talavera [...] totally submitted in one cassette. () [facility] Microscopic Description Microscopic examination performed unless gross only specified. Quality was accessed and acceptable. This report was transcribed using voice recognition technology and might contain unintended computerized pilot instructor errors. Normal [facility] Comment on above: Performed By: #### 4 [id number] #### [facility] [address] [place] [address] Ambulatory Visit Summary- Ambulatory Visit Summary Ambulatory Visit Summary RAMY [...] choosing us for your care. Fe Osullivan [facility] Gastroenterology Office/Clin ic Noteon 09-24-2024 Gastroenterology [...] so we will place a referral to [facility] Rheumatology. 2. Rectal prolapse (K62.3: Rectal prolapse) referral placed to colorectal at [facility] Colonoscopy 09/10/23: Impression and Plan 1. [...] can disc (more content not included)... Normal [facility] Comment on above: Result Comment: Elec tronically [...] ThinPrep Vial Age Algo ACOG Amirah... 30-65 FLAG LEGEND: L-Low Normal,H-High Normal,LL-Alert Low,HH-Alert High <-Panic Low,>-Panic High,A-Abnormal,AA-Critical Abnormal Performed at: 01 [address] [address] Zainab Mckeon MD, HPV APTIMA Negative Negative [facility] Comment on above: This nucleic acid am plification test detects fourteen high- risk HPV types (16,18,31,33,35,39,45,51,52,56,58,59,66,68) without differentiation. Performed at: =[address] [id number] Adjunct Teacher: Zainab Mckeon MD, Phone: [phone] Performed at: [address] [id number] Adjunct Teacher: Zainab Mckeon MD, Phone: [phone] IGP, APTIMA HPV, RFX 16/18,45 Note . [facility] Comment on above: TESTS RESULT FLAG UN ITS REF RANGE LAB DIAGNOSIS: 02 NEGATIVE FOR INTRAEPITHELIAL LESION OR MALIGNANCY. Specimen adequacy: 02 Satisfactory for evaluation. No endocervical component is identified. Performed by: Charles Cabrera Investment Officer (ASCP) . 02 Note: Note 02 The [...] <-Panic Low,>-Panic High,A-Abnormal,AA-Critical Abnormal Performed at: 02 [address] [facility] [address] [address] Zainab Mckeon MD, BRUSH-SPATULA CERVIX ENDOCERVIX [facility] M[facility] Glucose Test strip manual (B ld) [Mass/Vol]on 12-24-2023 Glucose [Mass/Vol] 99 mg/dL 74 - 99 mg/dL [facility] Interpretation and review of laboratory results Normal [facility] Glucose [Mass/Vol] 99 mg/dL Normal 74-99 [facility] Comment on above: Performed By: #### 2 341-6 #### SABRINA GERMAN ([id number]) [facility] ([facility]) [address] [place] [address] HCG ( test) IA.eveliai d Ql (U)Ordered By: Josseline Spring on 12-24-2023 HCG ( test) Ql (U) Negative NEGATIVE [facility] Interpretation and review of laboratory results Normal [facility] HCG ( test) IA.rapi d Ql (U)on 12-24-2023 HCG ( test) Ql (U) Negative Normal NEGATIVE [facility] Comment on above: Performed By: #### 8 0384-1 #### SABRINA GERMAN ([id number]) [facility] ([facility]) [address] [place] [address] Basic metabolic 2000 panelon 12-13-2023 Anion gap [Moles/Vol] 12 mmol/L Normal 10-20 [facility] Comment on above: Performed By: #### 3 084-1 #### KADE Sandra ([id number]) [facility] ([facility]) [address] [place] [address] Calcium [Mass/Vol] 10.2 mg/dL Normal 8.6-10.3 [facility] Comment on above: Performed By: #### 3 084-1 #### KADE Sandra ([id number]) [facility] ([facility]) [address] [place] [address] Chloride [Moles/Vol] 104 mmol/L Normal 98-107 [facility] Comment on above: Performed By: #### 3 084-1 #### KADE Sandra ([id number]) [facility] ([facility]) [address] [place] [address] CO2 [Moles/Vol] 30 mmol/L Normal 21-32 [facility] Comment on above: Performed By: #### 3 084-1 #### KADE Sandra ([id number]) [facility] ([facility]) [address] [place] [address] Creatinine [Mass/Vol] 0.66 mg/dL Normal 0.50-1.05 [facility] Comment on above: Performed By: #### 3 084-1 #### KADE LORENZ L ([id number]) [facility] ([facility]) [address] [place] [address] GFR/1.73 sq M.predicted MDRD (S/P/Bld) [Vol rate/Area] mL/min/{1.73_m2} Normal >[address] [facility] Comment on above: Result Comment: Calc ulations of estimated GFR are performed using the 2020 CKD-EPI Study Refit equation without the race variable for the IDMS-Traceable creatinine methods. https://jasn.asnjournals.org/content/early//ASN.69954 10930 Performed By: #### 3 084-1 #### KADE Sandra ([id number]) [facility] ([facility]) [address] [place] [address] Glucose [Mass/Vol] 117 mg/dL High 74-99 [facility] Comment on above: Performed By: #### 3 084-1 #### KADE BAILEYTZESTELLE L ([id number]) [facility] ([facility]) [address] [place] [address] Potassium [Moles/Vol] 4.9 mmol/L Normal 3.5-5.3 [facility] Comment on above: Performed By: #### 3 084-1 #### KADE BOURNEMOTZER L ([id number]) [facility] ([facility]) [address] [place] [address] Sodium [Moles/Vol] 141 mmol/L Normal 136-145 [facility] Comment on above: Performed By: #### 3 084-1 #### KADE BOURNEMOTZER L ([id number]) [facility] ([facility]) [address] [place] [address] Urea nitrogen [Mass/Vol] 7 mg/dL Normal 6-[address] [facility] Comment on above: Performed By: #### 3 084-1 #### KADE BOURNEMOTZER L ([id number]) [facility] ([facility]) [address] [place] [address] Beta 2 glycoprotein 1 Ab IgA and IgG and IgM panel (S)on 11-28-2023 Beta 2 glycoprotein 1 IgA Qn (S) 34.2 U/mL High <20.[address] [facility] Comment on above: Result Comment: Elev [...] By: #### 3 084-1 #### KADE Sandra ([id number]) [facility] ([facility]) [address] [place] [address] Beta 2 glycoprotein 1 IgG Qn (S) 2.6 U/mL Normal <20.[address] [facility] Comment on above: Result Comment: Elev ated levels of IgG anti-Beta 2 Glycoprotein-I on 2 occasions at least 12 weeks apart are laboratory criteria for anti-phospholipid syndrome according to an international consensus (J Thromb Haemost 2006 4:295). Performed By: #### 3 084-1 #### KADE Sandra ([id number]) [facility] ([facility]) [address] [place] [address] Beta 2 glycoprotein 1 IgM Qn (S) 27.5 U/mL High <20.[address] [facility] Comment on above: Result Comment: Elev [...] By: #### 3 084-1 #### KADE Sandra ([id number]) [facility] ([facility]) [address] [place] [address] C reactive proteinon 024 CRP [Mass/Vol] mg/L Normal <1.[address] [facility] Comment on above: Performed By: #### 1 988-5 #### KADE Sandra ([id number]) [facility] ([facility]) [address] [place] [address] Calcidiolon 11-28-2023 25-hydroxyvitamin D3 [Mass/Vol] 65 ng/mL Normal 30-[address] [facility] Comment on above: Order Comment: Defic iency: < 20 ng/ml Insufficiency: 20-29 ng/ml Sufficiency: 30-100 ng/ml This assay accurately quantifies the sum of Vitamin D3, 25-Hydroxy and Vitamin D2,25-Hydroxy. Performed By: #### 1 989-3 #### KADE Sandra ([id number]) [facility] ([facility]) [address] [place] [address] Cardiolipin Ab IA Qn (S)on 0 11-28-2023 Cardiolipin IgA Qn 39.0 APL U/mL High <20.0 [facility] Comment on above: Result Comment: Elev ated levels of IgA anti-cardiolipin have not been included in the laboratory criteria for anti-phospholipid syndrome according to an international consensus (J Thromb Haemost 2006 4:295). It may be helpful in identifying subgroups of patients at risk for specific clinical manifestations of anti-phospholipid syndrome. Performed By: #### 3 180-7 #### KADE Sandra ([id number]) [facility] ([facility]) [address] [place] [address] Cardiolipin IgG IA Qn (S) 2.4 GPL U/mL Normal <20.[address] [facility] Comment on above: Result Comment: Elev ated levels of IgG anti-cardiolipin on 2 occasions at least 12 weeks apart are laboratory criteria for anti-phospholipid syndrome according to an international consensus (J Thromb Haemost 2006 4:295). Performed By: #### 3 180-7 #### KADE Sandra ([id number]) [facility] ([facility]) [address] [place] [address] Cardiolipin IgM IA Qn (S) 27.7 MPL U/mL High <20.[address] [facility] Comment on above: Result Comment: Elev [...] By: #### 3 180-7 #### KADE Sandra ([id number]) [facility] ([facility]) [address] [place] [address] Complement C3on 11-28-2023 Complement C3 [Mass/Vol] 101 mg/dL Normal 87-[address] [facility] Comment on above: Performed By: #### 4 485-9 #### KADE Sandra ([id number]) [facility] ([facility]) [address] [place] [address] Complement C4on 11-28-2023 Complement C4 [Mass/Vol] 14 mg/dL Normal 10-[address] [facility] Comment on above: Performed By: #### 4 498-2 #### KADE Sandra ([id number]) [facility] ([facility]) [address] [place] [address] Cyclic citrullinated peptide Ab.IgGon 11-28-2023 Cyclic citrullinated peptide IgG Qn <1 Normal <[address] [facility] Comment on above: Order Comment: THE [...] By: #### 3 3935-8 #### KADE Sandra ([id number]) [facility] ([facility]) [address] [place] [address] ESR Westergren method (Bld) [Velocity]on 11-28-2023 ESR (Bld) [Velocity] mm/h Normal 0-20 [facility] Comment on above: Performed By: #### 4 537-7 #### KADE Sandra ([id number]) [facility] ([facility]) [address] [place] [address] Extractable nuclear Ab panel (S)on 11-28-2023 Centromere protein B Ab Qn (S) <0.2 Normal <1.[address] [facility] Comment on above: Result Comment: < 1. 0 = NEGATIVE >=1.0 = POSITIVE Performed By: #### 3 084-1 #### KADE Sandra ([id number]) [facility] ([facility]) [address] [place] [address] Chromatin Ab Qn <0.2 Normal <1.0 [facility] Comment on above: Result Comment: < 1. 0 = NEGATIVE >=1.0 = POSITIVE Performed By: #### 3 084-1 #### KDAE Sandra ([id number]) [facility] ([facility]) [address] [place] [address] DNA double strand Ab Qn (S) 1.0 [IU]/mL Normal <5.[address] [facility] Comment on above: Result Comment: NEGA TIVE: <= 4 IU/ML EQUIVOCAL: 5- 9 IU/ML POSITIVE: >=10 IU/ML Performed By: #### 3 084-1 #### KADE Sandra ([id number]) [facility] ([facility]) [address] [place] [address] Meryl-1 extractable nuclear Ab IA Ql (S) <0.2 Normal <1.[address] [facility] Comment on above: Result Comment: < 1. 0 = NEGATIVE >=1.0 = POSITIVE Performed By: #### 3 084-1 #### KADE Sandra ([id number]) [facility] ([facility]) [address] [place] [address] Ribonucleoprotein extractable nuclear Ab IA Qn (S) 0.6 AI Normal <1.[address] [facility] Comment on above: Result Comment: < 1. 0 = NEGATIVE >=1.0 = POSITIVE Performed By: #### 3 084-1 #### KADE Sandra ([id number]) [facility] ([facility]) [address] [place] [address] Ribosomal P Ab Qn (S) <0.2 Normal <1.0 [facility] Comment on above: Result Comment: < 1. 0 = NEGATIVE >=1.0 = POSITIVE Performed By: #### 3 084-1 #### KADE Sandra ([id number]) [facility] ([facility]) [address] [place] [address] SCL-70 extractable nuclear Ab IA Ql (S) <0.2 Normal <1.[address] [facility] Comment on above: Result Comment: < 1. 0 = NEGATIVE >=1.0 = POSITIVE Performed By: #### 3 084-1 #### KADE Sandra ([id number]) [facility] ([facility]) [address] [place] [address] Sjogrens syndrome-A extractable nuclear Ab IA Qn (S) <0.2 Normal <1.[address] [facility] Comment on above: Result Comment: < 1. 0 = NEGATIVE >=1.0 = POSITIVE Performed By: #### 3 084-1 #### KADE Sandra ([id number]) [facility] ([facility]) [address] [place] [address] Sjogrens syndrome-B extractable nuclear Ab IA Qn (S) <0.2 Normal <1.[address] [facility] Comment on above: Result Comment: < 1. 0 = NEGATIVE >=1.0 = POSITIVE Performed By: #### 3 084-1 #### KADE Sandra ([id number]) [facility] ([facility]) [address] [place] [address] Dias extractable nuclear Ab IA Qn (S) <0.2 Normal <1.[address] [facility] Comment on above: Result Comment: < 1. 0 = NEGATIVE >=1.0 = POSITIVE Performed By: #### 3 084-1 #### KADE Sandra ([id number]) [facility] ([facility]) [address] [place] [address] Dias extractable nuclear Ab+Ribonucleoprotein extractable nuclear Ab IA Ql (S) <0.2 Normal <1.[address] [facility] Comment on above: Result Comment: < 1. 0 = NEGATIVE >=1.0 = POSITIVE Performed By: #### 3 084-1 #### KADE Sandra ([id number]) [facility] ([facility]) [address] [place] [address] Nuclear Abon 11-28-2023 Nuclear Ab Hep2 substrate Ql (S) Negative Normal Negative [facility] Comment on above: Result Comment: The Antinuclear Antibody (JERZY) test was performed using indirect immunofluorescence assay with HEp-2 cells slide. Performed By: #### 3 084-1 #### KADE Sandra ([id number]) [facility] ([facility]) [address] [place] [address] 72497 Proteinon 11-28-2023 Protein [Mass/Vol] 6.8 g/dL Normal 6.4-8.2 [facility] Comment on above: Performed By: #### 2 885-2 #### KADE Sandra ([id number]) [facility] ([facility]) [address] [place] [address] 63675 Rheumatoid factoron 11-28-19 24 Rheumatoid factor Nephelometry Qn (S) <10 Normal 0-[address] [facility] Comment on above: Performed By: #### 1 5205-8 #### KADE Sandra ([id number]) [facility] ([facility]) [address] [place] [address] 84605 SERUM PROTEIN ELECTROPHORESI S + IMMUNOFIXATIONon 11-28-2023 Albumin [Mass/Vol] 4.4 g/dL Normal 3.4-5.0 [facility] Comment on above: Performed By: #### 3 084-1 #### KADE Sandra ([id number]) [facility] ([facility]) [address] [place] [address] 14255 ALPHA 1 GLOBULIN 0.3 g/dL Normal 0.2-0.6 [facility] Comment on above: Performed By: #### 3 084-1 #### KADE Sandra ([id number]) [facility] ([facility]) [address] [place] [address] 43314 ALPHA 2 GLOBULIN 0.5 g/dL Normal 0.4-1.1 [facility] Comment on above: Performed By: #### 3 084-1 #### KADE Sandra ([id number]) [facility] ([facility]) [address] [place] [address] 76511 BETA GLOBULIN 0.6 g/dL Normal 0.5-1.[address] [facility] Comment on above: Performed By: #### 3 084-1 #### KADE Sandra ([id number]) [facility] ([facility]) [address] [place] [address] 46686 GAMMA GLOBULIN 1.0 g/dL Normal 0.5-1.[address] [facility] Comment on above: Performed By: #### 3 084-1 #### KADE Sandra ([id number]) [facility] ([facility]) [address] [place] [address] 39216 IMMUNOFIXATION COMMENT Detected Normal Un [facility] Comment on above: Performed By: #### 3 084-1 #### KADE Sandra ([id number]) [facility] ([facility]) [address] [place] [address] 27213 PATH REVIEW - SERUM IMMUNOFIXATION SEE COMMENT [facility] Comment on above: Result Comment: Revi ewed and approved by ALICE MORALES on 12/03/23 at 8:41 PM. Performed By: #### 3 084-1 #### KADE Sandra ([id number]) [facility] ([facility]) [address] [place] [address] 75932 PATH REVIEW-SERUM PROTEIN ELECTROPHORESIS SEE COMMENT Normal [facility] Comment on above: Result Comment: Revi ewed and approved by ALICE MORALES on 12/03/23 at 8:41 PM. Performed By: #### 3 084-1 #### KADE Sandra ([id number]) [facility] ([facility]) [address] [place] [address] 97477 PROTEIN ELECTROPHORESIS COMMENT Normal. [facility] Comment on above: Performed By: #### 3 084-1 #### KADE Sandra ([id number]) [facility] ([facility]) [address] [place] [address] Urateon 11-28-2023 Urate [Mass/Vol] 1.8 mg/dL Low 2.3-6.7 [facility] Comment on above: Result Comment: Linda puncture immediately after or during the administration of Metamizole may lead to falsely low results. Testing should be performed immediately prior to Metamizole dosing. Performed By: #### 3 084-1 #### KADE Sandra ([id number]) [facility] ([facility]) [address] [place] [address] XR HAND 3+ VIEWS BILATERALon 11-28-2023 XR HAND 3+ VIEWS BILATERAL Interpreted By: Daniel Martins, STUDY: XR HAND 3+ VIEWS BILATERAL; ; 11/28/2023 3:12 pm INDICATION: Signs/Symptoms:r/o erosiosn or calcinosis. COMPARISON: None. ACCESSION NUMBER(S): [id number] ORDERING CLINICIAN: JOSEPH SORIANO FINDINGS: Bilateral hands, three views of each There is no fracture. There is no dislocation. There are no degenerative changes. There is no erosion or chondrocalcinosis. There is no soft tissue abnormality seen. IMPRESSION: Normal radiographs of the hands MACRO: None Signed by: Daniel Maritns 11/29/2023 8:41 PM Dictation workstation: [id number] [facility] XR SACROILIAC JOINTS 3+ VIEW Son 11-28-2023 XR SACROILIAC JOINTS 3+ VIEWS Interpreted By: Daniel Martins, STUDY: XR SACROILIAC JOINTS 3+ VIEWS; ; 11/28/2023 3:12 pm INDICATION: Signs/Symptoms:r/o erosions or sacroilitis. COMPARISON: None. ACCESSION NUMBER(S): [id number] ORDERING CLINICIAN: JOSEPH SORIANO FINDINGS: SI joints, three views There is no sclerosis or erosions in the SI joints. No degenerative change seen. There is no fracture. There is no dislocation. There is no lytic or sclerotic lesion. There is no soft tissue abnormality seen. IMPRESSION: Normal radiographs of the sacroiliac joints MACRO: None Signed by: Daniel Martins 11/29/2023 8:41 PM Dictation workstation: [id number] Normal [facility] Anoscopyon 10-09-2023 Denisse Chiang MD 10/09/2023 2:20 PM Anoscopy Date/Time: 10/09/2023 1:37 PM Performed by: Denisse Chiang MD Authorized by: Denisse Chiang MD Consent: Consent obtained: Verbal Consent given by: Patient Procedure details: Internal hemorrhoids: yes (Right and left posterior, large, non-bleeding and non-prolapsing on exam today) Post-procedure details: Procedure completion: [facility] Work Phone: [facility] Work Phone: CHEMISTRYOrdered By: SYSTEM SYSTEM [...] on 08-29-2022 Cholesterol [Mass/Vol] 133 mg/dL 140-200 [facility] Comment on above: Chol less than 200 m g/dl low riskChol 201-239 mg/dl borderline riskChol 240 mg/dl and greater high risk Cholesterol in LDL Calc [Mas s/Vol]Ordered By: Tyler Roach on 08-29-2022 Cholesterol in LDL [Mass/Vol] 78 mg/dL 0-100 [facility] Comment on above: LDL ATP III CLASSIFI CATIONLDL less than 100 mg/dL OptimalLDL 100-129 mg/dL Near or above optimalLDL 130-159 mg/dL Borderline highLDL 160-189 mg/dL HighLDL greater than 189 mg/dL Very high Cholesterol in VLDL Calc [Ma ss/Vol]Ordered By: Tyler Roach on 08-29-2022 Cholesterol in VLDL [Mass/Vol] 12 mg/dL [facility] Serum or plasma high density lipoprotein (HDL) cholesterol measurementOrdered By: Tyler Roach on 08-29-2022 Cholesterol in HDL [Mass/Vol] 42 mg/dL 35-85 [facility] Comment on above: HDL CHOL ATP-III CLA SSIFICATION Cardiovascular RiskHDL > or equal to 60 mg/dL LOWHDL < 40 mg/dL HIGH Serum or plasma total choles terol/high density lipoprotein (HDL) cholesterol mass ratOrdered By: Tyler Roach on 08-29-2022 Cholesterol.total/Chol esterol in HDL [Mass ratio] 3.2 {ratio} <5.0 [facility] Thyrotropin [Units/volume] i n Serum or PlasmaOrdered By: Tyler Roach on 08-29-2022 TSH Qn 0.19 m[IU]/L 0.45-5.33 [facility] Thyroxine (T4) free [Mass/vo lume] in Serum or PlasmaOrdered By: Tyler Roach on 08-29-2022 Free T4 [Mass/Vol] 0.88 ng/dL 0.61-1.12 [facility] Triglyceride [Mass/volume] i n Serum or PlasmaOrdered By: Tyler Roach on 08-29-2022 Triglyceride [Mass/Vol] 63 mg/dL 0-149 [facility] Comment on above: TRIG ATP III CLASSIF ICATIONTRIG less than 150 mg/dL NormalTRIG 150-199 mg/dL Borderline highTRIG 200-500 mg/dL High TRIG greater than 500 mg/dL Very highStandard traceable to the Center for Disease Conrtrol and Prevention (CDC) test method. Vitamin D+Metabolites [Mass/ volume] in Serum or PlasmaOrdered By: Tyler Roach on 08-29-2022 Vitamin D+Metabolites [Mass/Vol] 16.0 ng/mL 30-100 [facility] Comment on above: VITAMIN D STATUS 25( [place])VITAMIN D RANGE (ng/mL) Deficient <20 Insufficient 20 to <30Sufficient 30 to 100Reference: John MF,Pasha PASTOR, Benson LOYD, et al. Evaluation,treatment, and prevention of vitamin D deficiency; an Endocrine Society clinical practice guideline. JCEM. 2010; 96(7):1911-30. ACETAMINOPHENon 08-28-2022 Acetaminophen [Mass/Vol] ug/mL Critically low 10.0-30.0 [facility] Comment on above: Performed By: #### S ALYC, ACET #### [facility] [address] [place] [address] Dr. Deepak August AMYLASEon 08-28-2022 Amylase [Catalytic activity/Vol] 33 U/L Normal 25-115 [facility] Comment on above: Performed By: #### B MP, LIVER, LIPA, SHERRI #### [facility] [address] [place] [address] Dr. Deepak August CBC AUTO DIFFon 08-28-2022 BASO # 0.1 103/ul Normal 0.0-0.1 [facility] Comment on above: Performed By: #### B MP, LIVER, LIPA, SHERRI #### [facility] [address] [place] [address] Dr. Deepak August Basophils/100 WBC (Bld) 0.5 % Normal 0.2-2.0 [facility] Comment on above: Performed By: #### B MP, LIVER, LIPA, SHERRI #### [facility] [address] [place] [address] Dr. Deepak August EO # 0.1 103/ul Normal 0.0-0.7 [facility] Comment on above: Performed By: #### B MP, LIVER, LIPA, SHERRI #### [facility] [address] [place] [address] Dr. Deepak August Eosinophils/100 WBC (Bld) 1.1 % Normal 0.9-7.0 [facility] Comment on above: Performed By: #### B MP, LIVER, LIPA, SHERRI #### [facility] [address] [place] [address] Dr. Deepak August Erythrocyte distribution width (RBC) [Ratio] 13.3 % Normal 11.0-15.0 [facility] Comment on above: Performed By: #### B MP, LIVER, LIPA, SHERRI #### [facility] [address] [place] [address] Dr. Deepak August Hematocrit (Bld) [Volume fraction] 43.5 % Normal 36.0-48.0 [facility] Comment on above: Performed By: #### B MP, LIVER, LIPA, SHERRI #### [facility] [address] [place] [address] Dr. Deepak August Hemoglobin (Bld) [Mass/Vol] 14.7 g/dL Normal 12.0-16.0 [facility] Comment on above: Performed By: #### B MP, LIVER, LIPA, SHERRI #### [facility] [address] [place] [address] Dr. Deepak August IG # 0.04 10e3/ul Critically high 0.00-0.03 [facility] Comment on above: Performed By: #### B MP, LIVER, LIPA, SHERRI #### [facility] [address] [place] [address] Dr. Deepak August IG % 0.3 % Normal 0.0-0.5 [facility] Comment on above: Performed By: #### B MP, LIVER, LIPA, SHERRI #### [facility] [address] [place] [address] Dr. Deepak August LYMPH # 1.4 103/ul Normal 1.2-3.8 [facility] Comment on above: Performed By: #### B MP, LIVER, LIPA, SHERRI #### [facility] [address] [place] [address] Dr. Deepak August Lymphocytes/100 WBC (Bld) 11.2 % Critically low 20.5-60.0 [facility] Comment on above: Performed By: #### B MP, LIVER, LIPA, SHERRI #### [facility] [address] [address] [address] Deepak August MANUAL DIFF REQ NO Normal [facility] Comment on above: Performed By: #### B MP, LIVER, LIPA, SHERRI #### [facility] [address] [address] [address] Deepak August MCH (RBC) [Entitic mass] 29.5 pg Normal 26.7-34.0 [facility] Comment on above: Performed By: #### B MP, LIVER, LIPA, SHERRI #### [facility] [address] [place] [address] Dr. Deepak August MCHC (RBC) [Mass/Vol] 33.8 g/dL Normal 29.9-35.2 [facility] Comment on above: Performed By: #### B MP, LIVER, LIPA, SHERRI #### [facility] [address] [place] [address] Dr. Deepak August MCV (RBC) [Entitic vol] 87.2 fL Normal 81.0-99.0 [facility] Comment on above: Performed By: #### B MP, LIVER, LIPA, SHERRI #### [facility] [address] [place] [address] Dr. Deepak August MONO # 0.7 103/ul Normal 0.3-0.8 [facility] Comment on above: Performed By: #### B MP, LIVER, LIPA, SHERRI #### [facility] [address] [place] [address] Dr. Deepak August Monocytes/100 WBC (Bld) 5.8 % Normal 1.7-12.0 [facility] Comment on above: Performed By: #### B MP, LIVER, LIPA, SHERRI #### [facility] [address] [place] [address] Dr. Deepak August NEUT # 10.0 103/ul Critically high 1.4-6.5 [facility] Comment on above: Performed By: #### B MP, LIVER, LIPA, SHERRI #### [facility] [address] [place] [address] Dr. Deepak August Neutrophils/100 WBC (Bld) 81.1 % Critically high 43.0-75.0 [facility] Comment on above: Performed By: #### B MP, LIVER, LIPA, SHERRI #### [facility] [address] [place] [address] Dr. Deepak August Platelet mean volume (Bld) [Entitic vol] 10.1 fL Normal 9.5-13.5 [facility] Comment on above: Performed By: #### B MP, LIVER, LIPA, SHERRI #### [facility] [address] [place] [address] Dr. Deepak August PLT 390 103/ul Normal 150-450 [facility] Comment on above: Performed By: #### B MP, LIVER, LIPA, SHERRI #### [facility] [address] [place] [address] Dr. Deepak August RBC 4.99 106/ul Normal 4.20-5.40 [facility] Comment on above: Performed By: #### B MP, LIVER, LIPA, SHERRI #### [facility] [address] [place] [address] Dr. Deepak August WBC 12.4 103/ul Critically high 4.0-11.0 [facility] Comment on above: Performed By: #### B MP, LIVER, LIPA, SHERRI #### [facility] [address] [place] [address] Dr. Deepak August DRUG SCREEN RAPID (URINE)on 08-28-2022 AMP Negative Normal NEGATIVE [facility] Comment on above: Performed By: #### B MP, LIVER, LIPA, SHERRI #### [facility] [address] [place] [address] Dr. Deepak August BAR Negative Normal NEGATIVE [facility] Comment on above: Performed By: #### B MP, LIVER, LIPA, SHERRI #### [facility] [address] [place] [address] Dr. Deepak August BUP Negative Normal NEGATIVE [facility] Comment on above: Performed By: #### B MP, LIVER, LIPA, SHERRI #### [facility] [address] [place] [address] Dr. Deepak August BZO Negative Normal NEGATIVE [facility] Comment on above: Performed By: #### B MP, LIVER, LIPA, SHERRI #### [facility] [address] [place] [address] Dr. Deepak August VERA Negative Normal NEGATIVE [facility] Comment on above: Performed By: #### B MP, LIVER, LIPA, SHERRI #### [facility] [address] [address] [address] Deepak August CUT-OFFS SEE BELOW Normal [facility] Comment on above: Result Comment: AMP [...] #### B MP, LIVER, LIPA, SHERRI #### [facility] [address] [place] [address] Dr. Deepak August DRUG CUT HEADER DRUG CLASS TEST SYST EM CUT-OFF CONCENTRATIONS ARE FOLLOWS: Normal [facility] Comment on above: Performed By: #### B MP, LIVER, LIPA, SHERRI #### [facility] [address] [place] [address] Dr. Deepak August mAMP Negative Normal NEGATIVE [facility] Comment on above: Performed By: #### B MP, LIVER, LIPA, SHERRI #### [facility] [address] [place] [address] Dr. Deepak August MTD Negative Normal NEGATIVE [facility] Comment on above: Performed By: #### B MP, LIVER, LIPA, SHERRI #### [facility] [address] [place] [address] Dr. Deepak August OPI Negative Normal NEGATIVE [facility] Comment on above: Performed By: #### B MP, LIVER, LIPA, SHERRI #### [facility] [address] [address] [address] Deepak August OXY Negative Normal NEGATIVE [facility] Comment on above: Performed By: #### B MP, LIVER, LIPA, SHERRI #### [facility] [address] [place] [address] Dr. Deepak August PCP Negative Normal NEGATIVE [facility] Comment on above: Performed By: #### B MP, LIVER, LIPA, SHERRI #### [facility] [address] [address] [address] Deepak August PPX Negative Normal NEGATIVE [facility] Comment on above: Performed By: #### B MP, LIVER, LIPA, SHERRI #### [facility] [address] [place] [address] Dr. Deepak August TCA Positive Abnormal NEGATIVE [facility] Comment on above: Performed By: #### B MP, LIVER, LIPA, SHERRI #### [facility] [address] [place] [address] Dr. Deepak August THC Positive Abnormal NEGATIVE [facility] Comment on above: Performed By: #### B MP, LIVER, LIPA, SHERRI #### [facility] [address] [place] [address] Dr. Deepak August ER URINE PROFILEon 3 Bilirubin Ql (U) Negative Normal NEGATIVE [facility] Comment on above: Performed By: #### B MP, LIVER, LIPA, SHERRI #### [facility] [address] [place] [address] Dr. Deepak August Clarity (U) CLEAR Normal CLEAR [facility] Comment on above: Performed By: #### B MP, LIVER, LIPA, SHERRI #### [facility] [address] [place] [address] Dr. Deepak August Color (U) YELLOW Normal YELLOW [facility] Comment on above: Performed By: #### B MP, LIVER, LIPA, SHERRI #### [facility] [address] [place] [address] DrRic OROSCO A micrscopic examination will be performed if indicated. Normal [facility] Comment on above: Performed By: #### B MP, LIVER, LIPA, SHERRI #### [facility] [address] [address] [address] Deepak August Glucose Ql (U) Negative Normal NEGATIVE [facility] Comment on above: Performed By: #### B MP, LIVER, LIPA, SHERRI #### [facility] [address] [address] [address] Deepak August Hemoglobin Ql (U) Negative Normal NEGATIVE [facility] Comment on above: Performed By: #### B MP, LIVER, LIPA, SHERRI #### [facility] [address] [place] [address] Dr. Deepak August Ketones Ql (U) 15 mg/dl Abnormal NEGATIVE [facility] Comment on above: Performed By: #### B MP, LIVER, LIPA, SHERRI #### [facility] [address] [place] [address] Dr. Deepak August LEUKOCYTES Negative Normal NEGATIVE [facility] Comment on above: Performed By: #### B MP, LIVER, LIPA, SHERRI #### [facility] [address] [place] [address] Dr. Deepak August Nitrite Ql (U) Negative Normal NEGATIVE [facility] Comment on above: Performed By: #### B MP, LIVER, LIPA, SHERRI #### [facility] [address] [address] [address] Deepak August pH (U) 6.0 [pH] Normal 5-9 [facility] Comment on above: Performed By: #### B MP, LIVER, LIPA, SHERRI #### [facility] [address] [address] [address] Deepak August SPEC GRAVITY 1.020 Normal 1.005-<=1.02 5 [facility] Comment on above: Performed By: #### B MP, LIVER, LIPA, SHERRI #### [facility] [address] [place] [address] Dr. Deepak August UA PROTEIN Negative Normal NEGATIVE/ TRACE [facility] Comment on above: Performed By: #### B MP, LIVER, LIPA, SHERRI #### [facility] [address] [address] [address] Deepak August UR MICRO IND NOT INDICATED Normal [facility] Comment on above: Performed By: #### B MP, LIVER, LIPA, SHERRI #### [facility] [address] [address] [address] Deepak August Urobilinogen Qn (U) 0.2 {Jerod'U}/dL Normal 0.2 - 1. 0 [facility] Comment on above: Performed By: #### B MP, LIVER, LIPA, SHERRI #### [facility] [address] [place] [address] Dr. Deepak August ETHANOL (BLD ALC)on 08-29-19 23 ALC NOTE NOTE: 80 mg/dl is th e legal limit for a blood alcohol level Normal [facility] Comment on above: Performed By: #### B MP, LIVER, LIPA, SHERRI #### [facility] [address] [place] [address] Dr. Deepak August Ethanol [Mass/Vol] mg/dL Normal [facility] Comment on above: Performed By: #### B MP, LIVER, LIPA, SHERRI #### [facility] [address] [place] [address] Dr. Deepak August LACTATE/LACTIC ACIDon 2022 Lactate [Moles/Vol] 1.4 mmol/L Normal 0.4-2.0 [facility] Comment on above: Performed By: #### B MP, LIVER, LIPA, SHERRI #### [facility] [address] [place] [address] Dr. Deepak August LIPASEon 08-28-2022 Lipase [Catalytic activity/Vol] 47.0 U/L Critically low 73.0-393.0 [facility] Comment on above: Performed By: #### B MP, LIVER, LIPA, SHERRI #### [facility] [address] [place] [address] Dr. Deepak August LIVER PROFILEon 08-28-2022 Albumin [Mass/Vol] 4.2 g/dL Normal 3.4-5.[address] [facility] Comment on above: Performed By: #### B MP, LIVER, LIPA, SHERRI #### [facility] [address] [place] [address] Dr. Deepak August Albumin/Globulin [Mass ratio] 1.2 {ratio} Normal [facility] Comment on above: Performed By: #### B MP, LIVER, LIPA, SHERRI #### [facility] [address] [place] [address] Dr. Deepak August ALP [Catalytic activity/Vol] 67 U/L Normal 46-116 [facility] Comment on above: Performed By: #### B MP, LIVER, LIPA, SHERRI #### [facility] [address] [place] [address] Dr. Deepak August ALT [Catalytic activity/Vol] 21 U/L Normal 14-59 [facility] Comment on above: Performed By: #### B MP, LIVER, LIPA, SHERRI #### [facility] [address] [place] [address] Dr. Deepak August AST [Catalytic activity/Vol] 12 U/L Critically low 15-37 [facility] Comment on above: Performed By: #### B MP, LIVER, LIPA, SHERRI #### [facility] [address] [place] [address] Dr. Deepak August BILI, CONJUGATED 0.3 mg/dL Critically high 0.0-0.2 [facility] Comment on above: Performed By: #### B MP, LIVER, LIPA, SHERRI #### [facility] [address] [place] [address] Dr. Deepak August Bilirubin [Mass/Vol] 1.4 mg/dL Critically high 0.2-1.0 [facility] Comment on above: Performed By: #### B MP, LIVER, LIPA, SHERRI #### [facility] [address] [place] [address] Dr. Deepak August Globulin (S) [Mass/Vol] 3.6 g/dL Normal [facility] Comment on above: Performed By: #### B MP, LIVER, LIPA, SHERRI #### [facility] [address] [place] [address] Dr. Deepak August Protein [Mass/Vol] 7.8 g/dL Normal 6.4-8.2 [facility] Comment on above: Performed By: #### B MP, LIVER, LIPA, SHERRI #### [facility] [address] [place] [address] Dr. Deepak August URon 08-28-2022 , QUAL Negative Normal NEGATIVE [facility] Comment on above: Performed By: #### B MP, LIVER, LIPA, SHERRI #### [facility] [address] [address] [address] Deepak August PROF CHEM 8 (BAS METB)on Anion gap [Moles/Vol] 13.5 mmol/L Normal [facility] Comment on above: Performed By: #### B MP, LIVER, LIPA, SHERRI #### [facility] [address] [place] [address] Dr. Deepak August Calcium [Mass/Vol] 9.0 mg/dL Normal 8.5-10.[address] [facility] Comment on above: Performed By: #### B MP, LIVER, LIPA, SHERRI #### [facility] [address] [place] [address] Dr. Deepak August Chloride [Moles/Vol] 104 mmol/L Normal 98-107 [facility] Comment on above: Performed By: #### B MP, LIVER, LIPA, SHERRI #### [facility] [address] [place] [address] Dr. Deepak August CO2 [Moles/Vol] 23.8 mmol/L Normal 21.0-32.0 [facility] Comment on above: Performed By: #### B MP, LIVER, LIPA, SHERRI #### [facility] [address] [place] [address] Dr. Deepak August Creatinine [Mass/Vol] 0.82 mg/dL Normal 0.55-1.02 [facility] Comment on above: Performed By: #### B MP, LIVER, LIPA, SHERRI #### [facility] [address] [address] [address] Deepak August EGFR-AF MEXICAN >60 Normal >=60 [facility] Comment on above: Performed By: #### B MP, LIVER, LIPA, SHERRI #### [facility] [address] [address] [address] Deepak August EGFR-NON AF MEXICAN >60 Normal >=60 [facility] Comment on above: Performed By: #### B MP, LIVER, LIPA, SHERRI #### [facility] [address] [address] [address] Deepak August Glucose [Mass/Vol] 119 mg/dL Critically high 74-106 [facility] Comment on above: Performed By: #### B MP, LIVER, LIPA, SHERRI #### [facility] [address] [address] [address] Deepak August Potassium [Moles/Vol] 3.3 mmol/L Critically low 3.5-5.1 [facility] Comment on above: Performed By: #### B MP, LIVER, LIPA, SHERRI #### [facility] [address] [address] [address] Deepak August Sodium [Moles/Vol] 138 mmol/L Normal 136-145 [facility] Comment on above: Performed By: #### B MP, LIVER, LIPA, SHERRI #### [facility] [address] [address] [address] Deepak August Urea nitrogen [Mass/Vol] 8.0 mg/dL Normal 7.0-18.0 [facility] Comment on above: Performed By: #### B MP, LIVER, LIPA, SHERRI #### [facility] [address] [address] [address] Deepak August Urea nitrogen/Creatinine [Mass ratio] 9.8 mg/mg Normal [facility] Comment on above: Performed By: #### B MP, LIVER, LIPA, SHERRI #### [facility] [address] [address] [address] Deepak August SALICYLATEon 04-24-2023 SALICYLATE <2.8 Normal <=19.9 [facility] Comment on above: Performed By: #### S ALYC, ACET #### [facility] [address] [place] [address] Dr. Deepak August XR CHEST 1 Von [...] STELLA MCDOWELL Date: 2022-08-28 10:31 Normal [facility] FERRITINon 06-10-2022 Ferritin [Mass/Vol] 56.0 ng/mL Normal 6.2-137.0 [facility] Comment on above: Performed By: #### B MP, LIVER, LIPA, SHERRI #### [facility] [address] [place] [address] Dr. Deepak August MAGNESIUMon 06-10-2022 Magnesium [Mass/Vol] 2.2 mg/dL Normal 1.8-2.4 [facility] Comment on above: Performed By: #### K , MG, PHOS #### [facility] [address] [place] [address] Dr. Deepak August PHOSPHORUSon 06-10-2022 Phosphate [Mass/Vol] 3.6 mg/dL Normal 2.6-4.7 [facility] Comment on above: Performed By: #### K , MG, PHOS #### [facility] [address] [place] [address] Dr. Deepak August POTASSIUMon 06-10-2022 Potassium [Moles/Vol] 3.8 mmol/L Normal 3.5-5.1 [facility] Comment on above: Performed By: #### K , MG, PHOS #### [facility] [address] [place] [address] Dr. Deepak August VIT B12 AND FOLATEon 023 Cobalamin (Vitamin B12) [Mass/Vol] 278.0 pg/mL Normal 193.0-986.0 [facility] Comment on above: Performed By: #### B MP, LIVER, LIPA, SHERRI #### [facility] [address] [place] [address] Dr. Deepak August FOLATE 7.40 ng/mL Critically low 8.60-58.90 [facility] Comment on above: Performed By: #### B MP, LIVER, LIPA, SHERRI #### [facility] [address] [place] [address] Dr. Deepak August INSULINon 02-13-2022 Insulin 16.9 uIU/mL Normal 2.6-24.9 [facility] Comment on above: Performed By: #### B MP, LIVER, LIPA, SHERRI #### [facility] [address] [place] [address] Dr. Deepak August CBC AUTO DIFFon 02-11-2022 BASO # 0.1 103/ul Normal 0.0-0.1 [facility] Comment on above: Performed By: #### B MP, LIVER, LIPA, SHERRI #### [facility] [address] [place] [address] Dr. Deepak August Basophils/100 WBC (Bld) 1.0 % Normal 0.2-2.0 [facility] Comment on above: Performed By: #### B MP, LIVER, LIPA, SHERRI #### [facility] [address] [place] [address] Dr. Deepak August EO # 0.4 103/ul Normal 0.0-0.7 [facility] Comment on above: Performed By: #### B MP, LIVER, LIPA, SHERRI #### [facility] [address] [place] [address] Dr. Deepak August Eosinophils/100 WBC (Bld) 5.4 % Normal 0.9-7.0 [facility] Comment on above: Performed By: #### B MP, LIVER, LIPA, SHERRI #### [facility] [address] [place] [address] Dr. Deepak August Erythrocyte distribution width (RBC) [Ratio] 13.0 % Normal 11.0-15.0 [facility] Comment on above: Performed By: #### B MP, LIVER, LIPA, SHERRI #### [facility] [address] [place] [address] Dr. Deepak August Hematocrit (Bld) [Volume fraction] 40.7 % Normal 36.0-48.0 [facility] Comment on above: Performed By: #### B MP, LIVER, LIPA, SHERRI #### [facility] [address] [place] [address] Dr. Deepak August Hemoglobin (Bld) [Mass/Vol] 13.4 g/dL Normal 12.0-16.0 [facility] Comment on above: Performed By: #### B MP, LIVER, LIPA, SHERRI #### [facility] [address] [place] [address] Dr. Deepak August IG # 0.02 10e3/ul Normal 0.00-0.03 [facility] Comment on above: Performed By: #### B MP, LIVER, LIPA, SHERRI #### [facility] [address] [place] [address] Dr. Deepak August IG % 0.3 % Normal 0.0-0.5 [facility] Comment on above: Performed By: #### B MP, LIVER, LIPA, SHERRI #### [facility] [address] [place] [address] Dr. Deepak August LYMPH # 1.6 103/ul Normal 1.2-3.8 [facility] Comment on above: Performed By: #### B MP, LIVER, LIPA, SHERRI #### [facility] [address] [place] [address] Dr. Deepak August Lymphocytes/100 WBC (Bld) 23.1 % Normal 20.5-60.0 [facility] Comment on above: Performed By: #### B MP, LIVER, LIPA, SHERRI #### [facility] [address] [place] [address] Dr. Deepak August MANUAL DIFF REQ NO Normal [facility] Comment on above: Performed By: #### B MP, LIVER, LIPA, SHERRI #### [facility] [address] [place] [address] Dr. Deepak August MCH (RBC) [Entitic mass] 28.6 pg Normal 26.7-34.0 [facility] Comment on above: Performed By: #### B MP, LIVER, LIPA, SHERRI #### [facility] [address] [place] [address] Dr. Deepak August MCHC (RBC) [Mass/Vol] 32.9 g/dL Normal 29.9-35.2 [facility] Comment on above: Performed By: #### B MP, LIVER, LIPA, SHERRI #### [facility] [address] [place] [address] Dr. Deepak August MCV (RBC) [Entitic vol] 86.8 fL Normal 81.0-99.0 [facility] Comment on above: Performed By: #### B MP, LIVER, LIPA, SHERRI #### [facility] [address] [place] [address] Dr. Deepak August MONO # 0.5 103/ul Normal 0.3-0.8 [facility] Comment on above: Performed By: #### B MP, LIVER, LIPA, SHERRI #### [facility] [address] [place] [address] Dr. Deepak August Monocytes/100 WBC (Bld) 6.9 % Normal 1.7-12.0 [facility] Comment on above: Performed By: #### B MP, LIVER, LIPA, SHERRI #### [facility] [address] [place] [address] Dr. Deepak August NEUT # 4.3 103/ul Normal 1.4-6.5 [facility] Comment on above: Performed By: #### B MP, LIVER, LIPA, SHERRI #### [facility] [address] [place] [address] Dr. Deepak August Neutrophils/100 WBC (Bld) 63.3 % Normal 43.0-75.0 [facility] Comment on above: Performed By: #### B MP, LIVER, LIPA, SHERRI #### [facility] [address] [address] [address] Deepak August Platelet mean volume (Bld) [Entitic vol] 9.7 fL Normal 9.5-13.5 [facility] Comment on above: Performed By: #### B MP, LIVER, LIPA, SHERRI #### [facility] [address] [address] [address] Deepak August PLT 463 103/ul Critically high 150-450 [facility] Comment on above: Performed By: #### B MP, LIVER, LIPA, SHERRI #### [facility] [address] [place] [address] Dr. Deepak August RBC 4.69 106/ul Normal 4.20-5.40 [facility] Comment on above: Performed By: #### B MP, LIVER, LIPA, SHERRI #### [facility] [address] [place] [address] Dr. Deepak August WBC 6.8 103/ul Normal 4.0-11.0 [facility] Comment on above: Performed By: #### B MP, LIVER, LIPA, SHERRI #### [facility] [address] [place] [address] Dr. Deepak August FREE THYROXINE INDEX T7on FTI 2.33 Normal 1.30-4.50 [facility] Comment on above: Performed By: #### B MP, LIVER, LIPA, SHERRI #### [facility] [address] [place] [address] Dr. Deepak August T3U 31.0 % Normal 30.0-39.0 [facility] Comment on above: Performed By: #### B MP, LIVER, LIPA, SHERRI #### [facility] [address] [place] [address] Dr. Deepak August T4 [Mass/Vol] 7.50 ug/dL Normal 4.80-13.90 [facility] Comment on above: Performed By: #### B MP, LIVER, LIPA, SHERRI #### [facility] [address] [address] [address] Deepak August GLYCOHEMOGLOBIN A1Con 2021 ADA RECOMMENDATION SEE BELOW Normal [facility] Comment on above: Result Comment: ADA RECOMMENDED LIMIT 4.0 - 6.0 ADA THERAPEUTIC TARGET < 7.0 ACTION SUGGESTED > 7.0 Performed By: #### A 1C #### [facility] [address] [address] [address] Deepak August Glucose [Mass/Vol] 114 mg/dL Normal [facility] Comment on above: Performed By: #### A 1C #### [facility] [address] [address] [address] Deepak August HbA1c (Bld) [Mass fraction] 5.6 % Normal 4.5-6.2 [facility] Comment on above: Performed By: #### A 1C #### [facility] [address] [place] [address] Dr. Deepak August IRONon 02-11-2022 Iron [Mass/Vol] 97.0 ug/dL Normal 50.0-170.0 [facility] Comment on above: Performed By: #### B MP, LIVER, LIPA, SHERRI #### [facility] [address] [place] [address] Dr. Deepak August LIPID PROFILEon 02-11-2022 CHOL-HDL RATIO NORM SEE BELOW Normal [facility] Comment on above: Result Comment: 3.3 - 4.4 LOW RISK 4.4 - 7.1 AVERAGE RISK 7.1 - 11.0 MODERATE RISK >11.0 HIGH RISK Performed By: #### B MP, LIVER, LIPA, SHERRI #### [facility] [address] [address] [address] Deepak August Cholesterol [Mass/Vol] 172 mg/dL Normal <=200 [facility] Comment on above: Performed By: #### B MP, LIVER, LIPA, SHERRI #### [facility] [address] [place] [address] Dr. Deepak August Cholesterol in HDL [Mass/Vol] 64 mg/dL Critically high 40-60 [facility] Comment on above: Performed By: #### B MP, LIVER, LIPA, SHERRI #### [facility] [address] [address] [address] Deepak August Cholesterol in LDL [Mass/Vol] 98.0 mg/dL Normal [facility] Comment on above: Performed By: #### B MP, LIVER, LIPA, SHERRI #### [facility] [address] [address] [address] Deepak August Cholesterol.total/Chol esterol in HDL [Mass ratio] 2.7 {ratio} Normal [facility] Comment on above: Performed By: #### B MP, LIVER, LIPA, SHERRI #### [facility] [address] [address] [address] Deepak August HDL NORMAL > or = 60 mg/dl - LO W CARDIOVASCULAR RISK <40 mg/dl - HIGH CARDIOVASCULAR RISK Normal [facility] Comment on above: Performed By: #### B MP, LIVER, LIPA, SHERRI #### [facility] [address] [address] [address] Deepak August LDL CALC NORMAL SEE BELOW Normal [facility] Comment on above: Result Comment: <100 mg/dl OPTIMAL 100 - 129 mg/dl NEAR OR ABOVE OPTIMAL 130 - 159 mg/dl BORDERLINE HIGH 160 - 189 mg/dl HIGH >190 mg/dl VERY HIGH Performed By: #### B MP, LIVER, LIPA, SHERRI #### [facility] [address] [address] [address] Deepak August Triglyceride [Mass/Vol] 50 mg/dL Normal <=150 [facility] Comment on above: Performed By: #### B MP, LIVER, LIPA, SHERRI #### [facility] [address] [address] [address] Deepak August VLDL CALC 10.0 mg/dL Normal [facility] Comment on above: Performed By: #### B MP, LIVER, LIPA, SHERRI #### [facility] [address] [address] [address] Deepak August PROF 14(COMP METB)on 022 Albumin [Mass/Vol] 3.9 g/dL Normal 3.4-5.0 [facility] Comment on above: Performed By: #### B MP, LIVER, LIPA, SHERRI #### [facility] [address] [place] [address] Dr. Deepak August Albumin/Globulin [Mass ratio] 1.3 {ratio} Normal [facility] Comment on above: Performed By: #### B MP, LIVER, LIPA, SHERRI #### [facility] [address] [place] [address] Dr. Deepak August ALP [Catalytic activity/Vol] 67 U/L Normal 46-116 [facility] Comment on above: Performed By: #### B MP, LIVER, LIPA, SHERRI #### [facility] [address] [place] [address] Dr. Deepak August ALT [Catalytic activity/Vol] 39 U/L Normal 14-59 [facility] Comment on above: Performed By: #### B MP, LIVER, LIPA, SHERRI #### [facility] [address] [place] [address] Dr. Deepak August Anion gap [Moles/Vol] 9.4 mmol/L Normal [facility] Comment on above: Performed By: #### B MP, LIVER, LIPA, SHERRI #### [facility] [address] [place] [address] Dr. Deepak August AST [Catalytic activity/Vol] 16 U/L Normal 15-37 [facility] Comment on above: Performed By: #### B MP, LIVER, LIPA, SHERRI #### [facility] [address] [place] [address] Dr. Deepak August Bilirubin [Mass/Vol] 0.6 mg/dL Normal 0.2-1.0 [facility] Comment on above: Performed By: #### B MP, LIVER, LIPA, SHERRI #### [facility] [address] [place] [address] Dr. Deepak August Calcium [Mass/Vol] 8.6 mg/dL Normal 8.5-10.[address] [facility] Comment on above: Performed By: #### B MP, LIVER, LIPA, SHERRI #### [facility] [address] [address] [address] Deepak August Chloride [Moles/Vol] 105 mmol/L Normal 98-107 [facility] Comment on above: Performed By: #### B MP, LIVER, LIPA, SHERRI #### [facility] [address] [address] [address] Deepak August CO2 [Moles/Vol] 27.7 mmol/L Normal 21.0-32.0 [facility] Comment on above: Performed By: #### B MP, LIVER, LIPA, SHERRI #### [facility] [address] [address] [address] Deepak August Creatinine [Mass/Vol] 0.68 mg/dL Normal 0.55-1.02 [facility] Comment on above: Performed By: #### B MP, LIVER, LIPA, SHERRI #### [facility] [address] [address] [address] Deepak August EGFR-AF MEXICAN >60 Normal >=60 [facility] Comment on above: Performed By: #### B MP, LIVER, LIPA, SHERRI #### [facility] [address] [address] [address] Deepak August EGFR-NON AF MEXICAN >60 Normal >=60 [facility] Comment on above: Performed By: #### B MP, LIVER, LIPA, SHERRI #### [facility] [address] [address] [address] Deepak August Globulin (S) [Mass/Vol] 3.1 g/dL Normal [facility] Comment on above: Performed By: #### B MP, LIVER, LIPA, SHERRI #### [facility] [address] [address] [address] Deepak August Glucose [Mass/Vol] 115 mg/dL Critically high 74-106 [facility] Comment on above: Performed By: #### B MP, LIVER, LIPA, SHERRI #### [facility] [address] [address] [address] Deepak August Potassium [Moles/Vol] 4.1 mmol/L Normal 3.5-5.1 [facility] Comment on above: Performed By: #### B MP, LIVER, LIPA, SHERRI #### [facility] [address] [place] [address] Dr. Deepak August Protein [Mass/Vol] 7.0 g/dL Normal 6.4-8.[address] [facility] Comment on above: Performed By: #### B MP, LIVER, LIPA, SHERRI #### [facility] [address] [place] [address] Dr. Deepak August Sodium [Moles/Vol] 138 mmol/L Normal 136-[address] [facility] Comment on above: Performed By: #### B MP, LIVER, LIPA, SHERRI #### [facility] [address] [place] [address] Dr. Deepak August Urea nitrogen [Mass/Vol] 6.0 mg/dL Critically low 7.0-18.0 [facility] Comment on above: Performed By: #### B MP, LIVER, LIPA, SHERRI #### [facility] [address] [place] [address] Dr. Deepak August Urea nitrogen/Creatinine [Mass ratio] 8.8 mg/mg Normal [facility] Comment on above: Performed By: #### B MP, LIVER, LIPA, SHERRI #### [facility] [address] [place] [address] Dr. Deepak August TSHon 02-11-2022 TSH 0.860 uIU/mL Normal 0.358-3.740 [facility] Comment on above: Performed By: #### B MP, LIVER, LIPA, SHERRI #### [facility] [address] [place] [address] Dr. Deepak August MG MAMM SCREEN 3D FAISAL CADon 02-01-2022 MG MAMM SCREEN 3D FAISAL CAD Patient: RAMY MARTINEZ Exam Date: 02/01/2022 : 1980 Gender:F Ordering : DR RENA SMITH . Admission #: [id number] Family : Order #: [id number] CLICK HERE TO VIEW EXAM RADIOLOGY REPORT [...] uterine cancer at age 40. LOCATION: [facility] BREAST COMPOSITION: Heterogeneously dense,which may obscure small [...] Vasquez MD on 02/01/2022 at 08:53 Normal [facility] PAP ACOG PANEL 2: 30 to 65on 01-31-2022 . . Normal [facility] Comment on above: Result Comment: Perf ormed at: WB Performed By: #### B MP, LIVER, LIPA, SHERRI #### [facility] [address] [address] [address] Deepak August Age Gdln ACOG Testing 30-65 Normal [facility] Comment on above: Performed By: #### B MP, LIVER, LIPA, SHERRI #### [facility] [address] [address] [address] Deepak August DIAGNOSIS: Comment Normal [facility] Comment on above: Result Comment: NEGA TIVE FOR INTRAEPITHELIAL LESION OR MALIGNANCY. FUNGAL ORGANISMS MORPHOLOGICALLY CONSISTENT WITH JAY SPECIES ARE PRESENT. CELLULAR CHANGES ASSOCIATED WITH INFLAMMATION ARE PRESENT. Performed at: WB Performed By: #### B MP, LIVER, LIPA, SHERRI #### [facility] [address] [address] [address] Deepak August HPV Aptima Negative Normal Negative [facility] Comment on above: Result Comment: This nucleic acid amplification test detects fourteen high-risk HPV types (16,18,31,33,35,39,45,51,52,56,58,59,66,68) without differentiation. Performed at: =G Performed By: #### B MP, LIVER, LIPA, SHERRI #### [facility] [address] [place] [address] Dr. Deepak August Methodology: Comment [facility] Comment on above: Result Comment: This liquid based ThinPrep(R) pap test was screened with the use of an image guided system. Performed at: WB Performed By: #### B MP, LIVER, LIPA, SHERRI #### [facility] [address] [place] [address] Dr. Deepak August Note: Comment Normal [facility] Comment on above: Result Comment: The [...] #### B MP, LIVER, LIPA, SHERRI #### [facility] [address] [place] [address] Dr. Deepak August Performed by: Comment Normal [facility] Comment on above: Result Comment: Ness Ortiz, Investment Officer (ASCP) Performed at: WB Performed By: #### B MP, LIVER, LIPA, SHERRI #### [facility] [address] [place] [address] Dr. Deepak August Specimen adequacy: Comment Normal [facility] Comment on above: Result Comment: Sati sfactory for evaluation. No endocervical component is identified. Performed at: WB Performed By: #### B MP, LIVER, LIPA, SHERRI #### [facility] [address] [place] [address] Dr. Deepak August PROF CHEM 8 (BAS METB)on Anion gap [Moles/Vol] 12.9 mmol/L Normal [facility] Comment on above: Performed By: #### B MP, LIVER, LIPA, SHERRI #### [facility] [address] [place] [place] [address] Dr. Deepak August Calcium [Mass/Vol] 8.7 mg/dL Normal 8.5-10.1 [facility] Comment on above: Performed By: #### B MP, LIVER, LIPA, SHERRI #### [facility] [address] [address] [address] Deepak August Chloride [Moles/Vol] 105 mmol/L Normal 98-107 [facility] Comment on above: Performed By: #### B MP, LIVER, LIPA, SHERRI #### [facility] [address] [address] [address] Deepak August CO2 [Moles/Vol] 25.3 mmol/L Normal 21.0-32.0 [facility] Comment on above: Performed By: #### B MP, LIVER, LIPA, SHERRI #### [facility] [address] [place] [address] Dr. Deepak August Creatinine [Mass/Vol] 0.69 mg/dL Normal 0.55-1.02 [facility] Comment on above: Performed By: #### B MP, LIVER, LIPA, SHERRI #### [facility] [address] [place] [address] Dr. Deepak August EGFR-AF MEXICAN >60 Normal >=60 [facility] Comment on above: Performed By: #### B MP, LIVER, LIPA, SHERRI #### [facility] [address] [place] [address] Dr. Deepak August EGFR-NON AF MEXICAN >60 Normal >=60 [facility] Comment on above: Performed By: #### B MP, LIVER, LIPA, SHERRI #### [facility] [address] [place] [address] Dr. Deepak August Glucose [Mass/Vol] 114 mg/dL Critically high 74-106 [facility] Comment on above: Performed By: #### B MP, LIVER, LIPA, SHERRI #### [facility] [address] [place] [address] Dr. Deepak August Potassium [Moles/Vol] 4.2 mmol/L Normal 3.5-5.1 [facility] Comment on above: Performed By: #### B MP, LIVER, LIPA, SHERRI #### [facility] [address] [address] [address] Deepak August Sodium [Moles/Vol] 139 mmol/L Normal 136-145 [facility] Comment on above: Performed By: #### B MP, LIVER, LIPA, SHERRI #### [facility] [address] [address] [address] Deepak August Urea nitrogen [Mass/Vol] 6.0 mg/dL Critically low 7.0-18.0 [facility] Comment on above: Performed By: #### B MP, LIVER, LIPA, SHERRI #### [facility] [address] [address] [address] Deepak August Urea nitrogen/Creatinine [Mass ratio] 8.7 mg/mg Normal [facility] Comment on above: Performed By: #### B MP, LIVER, LIPA, SHERRI #### [facility] [address] [address] [address] Deepak August *HCG*POCT*DEVICEon 8 HCG.beta subunit ( test) Ql (U) Negative Normal Negative [facility] *POC GLUCOSE BATTERYon 09-03 *POC SAMPLE TYPE Capillary Blood Normal [facility] Glucose mass conc 106 mg/dL High 70-99 [place] Comment on above: Result Comment: No Benji GUNDERSON per RN: PATIENT TYPE Surgical Pathologyon 018 Surgical Pathology Surgical Pathology ReportPatient Name: RAMY MARTINEZ Rec #: [id number] Physician: LUIS GARCÍA--- Clinical History ---Preop Diagnosis: [...] [facility], [address] [place] [address]. All tests reported here, except those addressing HER2 overexpressionas a predictive marker, have not been cleared by or approved by the [place] Foodand Drug Administration (FDA). The laboratory is regulated under CLIA asqualified to perform high-complexity testing. The tests are used forclinical purposes. They should not be regarded as investigational or forresearch. mg03/GRC579:09/05/2017 *Electronically Signed ByJunior Hitchcock MD, PhD09/05/2017 17:39:19Professional Interpretation performed at location: [address] [place] [address]---SPECIMEN(S) RECEIVED:---SBXA: Colon, BXB: Colon, BXC: Colon, BXD: [...] TE 1 Lab Use Only: Job ID [id number] description by: Beata Miramontes [facility] Comment on above: Performed By: #### S URGP ####[facility] [place], [place] [id number] [place] [address] C Reactive Proteinon 018 C reactive protein (CRP) 3.70 mg/L Normal <10.00 [facility] Comment on above: Performed By: #### C BCDFC, CMPN, CRP ####[facility] [place], [place] [id number] [address] [place] [address] CBC,PLATELET,DIFFERENTIAL - CCLon 06-11-2017 Abs Baso 0.10 K/uL High 0.01-0.08 [facility] Comment on above: Performed By: #### C BCDFC, CMPN, CRP ####[facility] [place], [place] [id number] [address] [place] [address] Abs Eos 1.05 K/uL High 0.04-0.36 [facility] Comment on above: Performed By: #### C BCDFC, CMPN, CRP ####[facility] [place] [address], [address] [place] [address] Abs Mclennan 0.72 K/uL Normal 0.24-0.86 [facility] Comment on above: Performed By: #### C BCDFC, CMPN, CRP ####[facility] [place], [place] [id number] [address] [place] [address] Basophils/100 WBC Auto (Bld) 1.0 % Normal [facility] Comment on above: Performed By: #### C BCDFC, CMPN, CRP ####[facility] [place] [address] [place], [place] [id number] [address] [place] [address] DIFFERENTIAL TYPE Electronic Differential Normal [facility] Comment on above: Performed By: #### C BCDFC, CMPN, CRP ####[facility] [place] [address]AeoxyfHenry County Hospital[address] [place] [address] Eosinophils/100 leukocytes 10.2 % Normal [facility] Comment on above: Performed By: #### C BCDFC, CMPN, CRP ####[facility] [place] [address] 55182BcyzpmHenry County Hospital[address] [place] [address] Erythrocytes (RBC) 4.80 10*6/uL Normal 3.93-5.22 [facility] Comment on above: Performed By: #### C BCDFC, CMPN, CRP ####[facility] [place] [address] [place], [place] [address] [address] [place] [address] Erythrocytes (RBC) 13.1 % Normal 11.7-14.4 [facility] Comment on above: Performed By: #### C BCDFC, CMPN, CRP ####[facility] [place] [address]VqvnybHenry County Hospital[address] [place] [address] Hematocrit (HCT) 41.8 % Normal 34.1-44.9 [facility] Comment on above: Performed By: #### C BCDFC, CMPN, CRP ####[facility] [place] [address]AicgezHenry County Hospital[address] [place] [address]25 Hemoglobin mass conc (Bld) 28.5 pg Normal 25.6-32.2 [facility] Comment on above: Performed By: #### C BCDFC, CMPN, CRP ####[facility] [place] [address], [place] [address]IrlddzHenry County Hospital[address] [place] [address] Hemoglobin mass conc (Bld) 32.8 g/dL Normal 32.2-35.5 [facility] Comment on above: Performed By: #### C BCDFC, CMPN, CRP ####[facility] [place] [address], [place] [address] [place], [place] [address] [address] [place] [address] Hemoglobin mass conc (Bld) 13.7 g/dL Normal 11.2-15.7 [facility] Comment on above: Performed By: #### C BCDFC, CMPN, CRP ####[facility] [place] [address], [address] [place] [address] IMMATURE GRANS % 0.3 % Normal [facility] Comment on above: Performed By: #### C BCDFC, CMPN, CRP ####[facility] [place] [address] [place], [place] [address] [address] [place] [address] IMMATURE GRANS ABSOLUTE 0.03 K/uL Normal 0.00-0.03 [facility] Comment on above: Performed By: #### C BCDFC, CMPN, CRP ####[facility] [place] [address]BltafyHenry County Hospital[address] [place] [address] Lymphocytes 2.73 10*3/uL Normal 1.18-3.74 [facility] Comment on above: Performed By: #### C BCDFC, CMPN, CRP ####[facility] [place] [address] [place], [place] [address] [address] [place] [address] Lymphocytes/100 leukocytes 26.5 % Normal [facility] Comment on above: Performed By: #### C BCDFC, CMPN, CRP ####[facility] [place] [address] 228[address]FswovdHenry County Hospital[address] [place] [address] MCV 87.1 fL Normal 79.4-94.8 [facility] Comment on above: Performed By: #### C BCDFC, CMPN, CRP ####[facility] [place] [address] [place], [place] [address] [address] [place] [address] 31094 Monocytes/100 leukocytes 7.0 % Normal [facility] Comment on above: Performed By: #### C BCDFC, CMPN, CRP ####[facility] [place] [address] 730[address]YrnvvsHenry County Hospital[address] [place] [address] NEUTROPHIL SEGMENTED 55.0 % Normal [facility] Comment on above: Performed By: #### C BCDFC, CMPN, CRP ####[facility] [place] [address]26[address]JbninwHenry County Hospital[address] [place] [address] Nucleated erythrocytes 0.0 /100 WBC Normal 0.0-0.2 [facility] Comment on above: Performed By: #### C BCDFC, CMPN, CRP ####[facility] [place] [address] 88129UsmbrkHenry County Hospital[address] [place] [address] Platelet mean volume (PMV) 11.1 fL Normal 9.4-12.3 [facility] Comment on above: Performed By: #### C BCDFC, CMPN, CRP ####[facility] [place] [address] [place], [place] [address] [address] [place] [address]99 Platelets 433 10*3/uL High 182-369 [facility] Comment on above: Performed By: #### C BCDFC, CMPN, CRP ####[facility] [facility], [place] [address]GhkjinHenry County Hospital[address] [place] [address] SEGS + Bands,Absolute 5.66 K/uL Normal 1.56-6.13 [facility] Comment on above: Performed By: #### C BCDFC, CMPN, CRP ####[facility] [place], [place] [id number] [address] [place] [address] 22735 WBC (Leukocytes) 10.29 10*3/uL High 3.98-10.04 [facility] Comment on above: Performed By: #### C BCDFC, CMPN, CRP ####[facility] [place] [address] [place], [place] [address] [address] [place] [address]16 Comprehensive Metabolic Pane [place] 06-11-2017 Alanine aminotransferase (ALT) 15 U/L Normal 9-48 [facility] Comment on above: Performed By: #### C BCDFC, CMPN, CRP ####[facility] [place] [address] [place], [place] [address] [address] [place] [address] 68693 Albumin 4.6 g/dL Normal 3.5-5.0 [facility] Comment on above: Performed By: #### C BCDFC, CMPN, CRP ####[facility] [place] [address] [place], [place] [address] [address] [place] [address] 57201 Alkaline phosphatase (ALP) 77 U/L Normal 32-126 [facility] Comment on above: Performed By: #### C BCDFC, CMPN, CRP ####[facility] [place] [address], [place] [address]IhmdoiHenry County Hospital[address] [place] [address]46 Anion gap 12 mmol/L Normal 7-17 [facility] Comment on above: Performed By: #### C BCDFC, CMPN, CRP ####[facility] [place] [address], [place] [address] [place], [place] [id number] [address] [place], [place] [address] Aspartate aminotransferase (AST) 14 U/L Normal 14-40 [facility] Comment on above: Performed By: #### C BCDFC, CMPN, CRP ####[facility] [place] [address], [place] [address]AkdiajHenry County Hospital[address] [place], [place] [address] Bilirubin (total) 0.4 mg/dL Normal <1.5 [place] Comment on above: Performed By: #### C BCDFC, CMPN, CRP ####[facility] [place] [address] [place], [place] [address] [address] [place] [address] 93926 BUN/Creatinine Ratio 13 mg/mg Normal [facility] Comment on above: Performed By: #### C BCDFC, CMPN, CRP ####[facility] [place] [address] 19058YkheolHenry County Hospital[address] [place] [address] 27309 Calcium 9.5 mg/dL Normal 8.6-10.5 [facility] Comment on above: Performed By: #### C BCDFC, CMPN, CRP ####[facility] [place] [address]JuxwsxHenry County Hospital[address] [place], [place] [address] Chloride 104 mmol/L Normal 98-108 [facility] Comment on above: Performed By: #### C BCDFC, CMPN, CRP ####[facility] [place] [address]FapdxhHenry County Hospital[address] [place] [address] 70044 CO2 27 mmol/L Normal 22-30 [facility] Comment on above: Performed By: #### C BCDFC, CMPN, CRP ####[facility] [place], [place] [address] [address] [place] [address] 22810 Creatinine 0.68 mg/dL Normal 0.50-1.20 [facility] Comment on above: Performed By: #### C BCDFC, CMPN, CRP ####[facility] [place] [address] [place], [place] [address] [address] [place] [address] 15377 eGFR (non-black) mL/min/{1.73_m2} Normal >60 [facility] Comment on above: Performed By: #### C BCDFC, CMPN, CRP ####[facility] [place], [place] [address] [address] [place] [address] 15485 Glucose mass conc 90 mg/dL Normal 70-99 [place] Comment on above: Performed By: #### C BCDFC, CMPN, CRP ####[facility] [place] [address] [place], [place] [address] [address] [place] [address] 68138 Osmolality 288 mOsm/kg Normal 278-305 [facility] Comment on above: Performed By: #### C BCDFC, CMPN, CRP ####[facility] [place] [address] [place], [place] [address] [address] [place] [address] 79552 Potassium molar conc 3.7 mmol/L Normal 3.5-5.0 [facility] Comment on above: Performed By: #### C BCDFC, CMPN, CRP ####[facility] [place] [address] 284[address]GpauzqHenry County Hospital[address] [place] [address]40 Protein 7.6 g/dL Normal 6.4-8.3 [facility] Comment on above: Performed By: #### C BCDFC, CMPN, CRP ####[facility] [place], [place] [address]FxhvfyHenry County Hospital[address] [place] [address] 67855 Sodium 139 mmol/L Normal 133-143 [facility] Comment on above: Performed By: #### C BCDFC, CMPN, CRP ####[facility] [place], [place] [address]EafgmyHenry County Hospital[address] [place] [address] 23669 Urea nitrogen 9 mg/dL Normal 7-22 [facility] Comment on above: Performed By: #### C BCDFC, CMPN, CRP ####[facility] [place] [address] 26313XlaafnHenry County Hospital[address] [place] [address] 66342 Vital Signs Date Time Vital Sign Value Performing Clinician Facility 09-24-2024 08:18-0400 Blood Pressure Location Torres Sarmini [facility] 09-24-2024 08:18-0400 Diastolic blood pressure 86 mm[Hg] Torres Sarmini [facility] 09-24-2024 08:18-0400 Heart rate 73 /min Torres Sarmini [facility] 09-24-2024 08:18-0400 Systolic blood pressure 125 mm[Hg] Torres Sarmini [facility] 01-22-2024 15:40-0400 Body height 165.1 cm Denisse Chiang MD Work Phone: [facility] 01-22-2024 15:40-0400 Body mass index (BMI) [Ratio] 29.79 kg/m2 Denisse Chiang MD Work Phone: [facility] 01-22-2024 15:40-0400 Body weight 81.19 kg Denisse Chiang MD Work Phone: [facility] 01-22-2024 15:40-0400 Diastolic blood pressure 81 mm[Hg] Denisse Chiang MD Work Phone: [facility] 01-22-2024 15:40-0400 Heart rate 76 /min Denisse Chiang MD Work Phone: [facility] 01-22-2024 15:40-0400 Systolic blood pressure 117 mm[Hg] Denisse Chiang MD Work Phone: [facility] 01-03-2024 15:07-0400 Body mass index (BMI) [Ratio] 29.64 kg/m2 Sherri Reynolds PA Work Phone: [facility] 01-03-2024 15:07-0400 Body weight 80.8 kg Sherri Reynolds PA Work Phone: [facility] 01-03-2024 15:07-0400 Diastolic blood pressure 76 mm[Hg] Sherri Reynolds PA Work Phone: [facility] 01-03-2024 15:07-0400 Systolic blood pressure 110 mm[Hg] Sherri Gail PA Work Phone: [facility] 12-24-2023 20:30-0400 Diastolic blood pressure 63 mm[Hg] Denisse Chiang MD Work Phone: [facility] 12-24-2023 20:30-0400 Heart rate 84 /min Denisse Chiang MD Work Phone: [facility] 12-24-2023 20:30-0400 Respiratory rate 17 /min Denisse Chiang MD Work Phone: [facility] 12-24-2023 20:30-0400 SaO2% (BldA) [Mass fraction] 99 % Denisse Chiang MD Work Phone: [facility] 12-24-2023 20:30-0400 Systolic blood pressure 110 mm[Hg] Denisse Chiang MD Work Phone: [facility] 12-24-2023 20:00-0400 Body temperature 97.2 [degF] Denisse Chiang MD Work Phone: [facility] 12-24-2023 12:43-0400 Body height 165.1 cm Denisse Chiang MD Work Phone: [facility] 12-24-2023 12:43-0400 Body mass index (BMI) [Ratio] 28.96 kg/m2 Denisse Chiang MD Work Phone: [facility] 12-24-2023 12:43-0400 Body weight 78.93 kg Denisse Chiang MD Work Phone: [facility] 10-09-2023 13:06-0400 Body height 165.1 cm Denisse Chiang MD Work Phone: [facility] 10-09-2023 13:06-0400 Body mass index (BMI) [Ratio] 29.79 kg/m2 Denisse Chiang MD Work Phone: [facility] 10-09-2023 13:06-0400 Body weight 81.19 kg Denisse Chiang MD Work Phone: [facility] 10-09-2023 13:06-0400 Diastolic blood pressure 82 mm[Hg] Denisse Chiang MD Work Phone: [facility] 10-09-2023 13:06-0400 Heart rate 84 /min Denisse Chiang MD Work Phone: [facility] 10-09-2023 13:06-0400 Systolic blood pressure 126 mm[Hg] Denisse Chiang MD Work Phone: [facility] 09-25-2023 14:27-0400 Blood Pressure Location Torres Sarmini [facility] 09-25-2023 14:27-0400 Diastolic blood pressure 80 mm[Hg] Torres Sarmini [facility] 09-25-2023 14:27-0400 Heart rate 70 /min Torres Sarmini [facility] 09-25-2023 14:27-0400 Respiratory rate 18 /min Torres Sarmini [facility] 09-25-2023 14:27-0400 Systolic blood pressure 116 mm[Hg] Torres Sarmini [facility] 09-10-2023 14:15-0400 Diastolic blood pressure 88 mm[Hg] Torres Sarmini [facility] 09-10-2023 14:15-0400 Heart rate 78 /min Torres Sarmini [facility] 09-10-2023 14:15-0400 Respiratory rate 17 /min Torres Sarmini [facility] 09-10-2023 14:15-0400 SaO2% (BldA) [Mass fraction] 100 % Torres Sarmini [facility] 09-10-2023 14:15-0400 Systolic blood pressure 137 mm[Hg] Torres Sarmini [facility] 09-10-2023 14:05-0400 Diastolic blood pressure 89 mm[Hg] Otrres Sarmini [facility] 09-10-2023 14:05-0400 Heart rate 72 /min Torres Sarmini [facility] 09-10-2023 14:05-0400 Respiratory rate 16 /min Torres Sarmini [facility] 09-10-2023 14:05-0400 SaO2% (BldA) [Mass fraction] 99 % Torres Sarmini [facility] 09-10-2023 14:05-0400 Systolic blood pressure 147 mm[Hg] Torres Sarmini [facility] 09-10-2023 14:00-0400 Heart rate 75 /min Torres Sarmini [facility] 09-10-2023 14:00-0400 Systolic blood pressure 142 mm[Hg] Torres Sarmini [facility] 09-10-2023 13:49-0400 Body temperature 97.7 [degF] Torres Sarmini [facility] 09-10-2023 13:45-0400 Respiratory rate 14 /min Torres Sarmini [facility] 09-10-2023 13:40-0400 Respiratory rate 14 /min Torres Sarmini [facility] 09-10-2023 13:35-0400 Respiratory rate 13 /min Torres Sarmini [facility] 09-10-2023 11:40-0400 Blood Pressure Location Torres Sarmini [facility] 09-10-2023 11:40-0400 Body temperature 97.52 [degF] Torres Sarmini [facility] 07-11-2023 07:38-0500 Blood Pressure Location Torres Sarmini [facility] 07-11-2023 07:38-0500 Diastolic blood pressure 88 mm[Hg] Torres Sarmini [facility] 07-11-2023 07:38-0500 Heart rate 80 /min Torres Sarmini [facility] 07-11-2023 07:38-0500 Respiratory rate 18 /min Torres Sarmini [facility] 07-11-2023 07:38-0500 Systolic blood pressure 128 mm[Hg] Torres Sarmini [facility] 08-31-2022 17:05-0400 Body temperature 98.4 [degF] MD Yaquelin Perez Work Phone: [facility] 08-31-2022 17:05-0400 Diastolic blood pressure 86 mm[Hg] MD Yaquelin Perez Work Phone: [facility] 08-31-2022 17:05-0400 Heart rate 72 /min MD Yaquelin Perez Work Phone: [facility] 08-31-2022 17:05-0400 Respiratory rate 18 /min MD Yaquelin Perez Work Phone: [facility] 08-31-2022 17:05-0400 SaO2% (BldA) [Mass fraction] 100 % MD Yaquelin Perez Work Phone: [facility] 08-31-2022 17:05-0400 Systolic blood pressure 129 mm[Hg] MD Yaquelin Perez Work Phone: [facility] 08-29-2022 14:54-0400 Body height 166.37 cm MD Yaquelin Perez Work Phone: [facility] 08-28-2022 17:33-0400 Body weight 96.61 kg MD Yaquelin Perez Work Phone: [facility] 08-30-2021 10:00-0400 Body height 165.1 cm Reddy Dewitt Other [employer] Other 08-30-2021 10:00-0400 Body mass index (BMI) [Ratio] 36.61 kg/m2 Reddy Dewitt Other [employer] Other 08-30-2021 10:00-0400 Body weight 99.79 kg Reddy Dewitt Other [employer] Other Encounters Encounter Date Encounter Type Care Provider Facility Start: 11-04-2025 ambulatory Torres Talal Sarmini Facility:[facility] Start: 12-29-2024 End: 12-29-2024 ambulatory [facility] Start: 11-05-2024 End: 11-05-2024 ambulatory Torres Talal Sarmini Facility:[facility] Start: 11-05-2024 End: 11-05-2024 Patient encounter procedure Torres Talal Sarmini [facility] Start: 10-20-2024 End: 10-21-2024 ambulatory [facility] Start: 10-07-2024 End: 10-07-2024 Lab Drop off Torres Talal Sarmini [facility] Start: 10-07-2024 End: 10-07-2024 ambulatory Torres Talal Sarmini Facility:[facility] Start: 10-07-2024 End: 10-07-2024 ambulatory Torres Talal Sarmini Facility:[id number] Start: 09-24-2024 End: 09-24-2024 ambulatory Torres Talal Sarmini [facility] Start: 09-24-2024 End: 09-24-2024 Patient encounter procedure Torres Talal Sarmini [facility] Start: 01-22-2024 End: 01-22-2024 Postop follow up visit related to original px Denisse Chiang MD Work Phone: [facility] Comment on above: Prolapsed internal h emorrhoids (Primary Dx) Start: 01-22-2024 End: 01-22-2024 ambulatory DENISSE CHIANG [facility] Start: 01-03-2024 End: 01-03-2024 Patient [...] Unsolicited Start: 12-24-2023 End: 12-24-2023 ambulatory DENISSE CHIANG [facility] Start: 12-24-2023 End: 12-24-2023 Subsequent hospital visit by physician Denisse Chiang MD Work Phone: [facility] Comment on above: Prolapsed internal h emorrhoids Start: 12-13-2023 End: 12-13-[address] [facility] Start: 12-13-2023 End: 12-13-2023 Encounter for other preprocedural examination [facility] Start: 11-28-2023 End: 11-28-2023 ambulatory YAQUELIN SALCEDO Joan [facility] Start: 11-28-2023 End: 11-28-[address] [facility] Start: 11-28-2023 End: 11-28-2023 ambulatory DENISSE [facility] Start: 10-24-2023 ambulatory Tyler Person acility:[facility] Start: 10-09-2023 End: 10-09-2023 Office outpatient new 30 minutes Denisse Chiang MD Work Phone: [facility] Comment on above: Rectal prolapse (Coni briseida Dx); Internal hemorrhoids Start: 10-09-2023 End: 10-09-2023 ambulatory [facility] Start: 09-25-2023 End: 09-25-2023 Patient encounter procedure Torres Talal Sarmini [facility] Start: 09-10-2023 End: 09-10-2023 Patient encounter procedure Torres Talal Sarmini [facility] Start: 07-11-2023 End: 07-11-2023 Patient encounter procedure Torres Talal Sarmini [facility] Start: 07-11-2023 End: 07-11-2023 Patient encounter procedure Torres Talal Sarmini [facility] Start: 08-28-2022 End: 08-31-2022 Evaluation and management of inpatient MD Yaquelin Perez Work Phone: [address] Work Phone: Start: 08-28-2022 End: 08-28-[address] YAQUELIN PEREZ . Facility: Start: 08-16-2022 ambulatory CHASITY BOOKER Facility:H 1 Start: 06-10-2022 End: 06-11-[address] NICOLLE BALL Facility:[facility]1 Start: 02-14-2022 Encounter for genera l adult medical examination without abnormal findings DR YAQUELIN PEREZ . [facility] Start: 02-13-2022 End: 02-14-[address] YAQUELIN [...] End: 01-19-2022 Patient encounter procedure Chasity BOOKER [facility] Start: 10-12-2021 End: 10-13-2021 ambulatory CHASITY BOOKER Facility:[facility]1 Start: 08-30-2021 End: 08-30-2021 ambulatory Reddy Dewitt [facility] [employer] Other Start: 08-30-2021 Office outpatient vi sit 15 minutes Reddy Dewitt [facility] Start: 08-09-2021 End: 08-09-2021 Patient encounter procedure MD Yaquelin Perez Work Phone: [facility] Start: 09-03-2017 End: 09-03-2017 Ambulatory JUDITH P ROMELIA [facility] Start: 06-11-2017 Ambulatory JOSEFINA ABERRA [facility] Start: 06-11-2017 Ambulatory [facility] Procedures Date Procedure Procedure Detail Performing [...] er SALAM Colonoscopy Gaspar SALAM Endometrial ablation Chasity Carrillo ALAM Hemorrhoid operation Derian mock Sarmini Hemorrhoids (disorder) Gaspar SALAM Histology tonsillectomy Mahashley r SALAM History of hernia repair Izabella er SALAM Plan of Treatment Date Care Activity Detail Author Start: 2030 Zoster Vaccines (1 o f 2) Zoster Vaccines (1 of 2) [facility] Start: 01-02-2027 Screening for malignant neoplasm of cervix [facility] Start: 12-23-2026 Diabetes mellitus screening Diabetes Screening [facility] Start: 01-12-2025 End: 01-12-2025 Patient encounter procedure 01/12/2025 3:00 PM EDT Office Visit [facility] [address] [place] [phone] Sherri Reynolds PA [address] [place], [place] [id number] [facility] Start: 01-06-2024 COVID-19 Vaccine () COVID-19 Vaccine () [facility] Start: 01-06-2024 Influenza vaccination [facility] Start: 01-03-2024 End: 01-03-2024 Patient encounter procedure 01/03/2024 3:00 PM EDT Office Visit [facility] OB [address] [place] [phone] Sherri Reynolds PA [address] [place] [address] Arrived [facility] Comment on above: Arrived Start: 01-03-2024 End: 03-04-2025 MG Breast - bilateral Screening Bilateral screening mammogram Imaging Routine Breast cancer screening by mammogram Expected: 01/03/2024 (Approximate), Expires: 03/04/2025 [facility] Work Phone: Comment on above: Expected: 01/03/2024 (Approximate), Expires: 03/04/2025 Start: 11-28-2023 End: 11-28-2023 Patient encounter procedure 11/28/2023 2:00 PM EDT Office Visit [facility] [address] [place] [phone] Joseph Soriano DO [address] [place] [address] [facility] Start: 01-05-2023 COVID-19 Vaccine ( season) COVID-19 Vaccine ( season) [facility] Start: 08-31-2022 [facility] Start: 08-28-2022 Hospital admission [facility] Start: 2020 Screening for malignant neoplasm of breast Mammogram [facility] Start: 10-18-2018 Varicella vaccination Varicell a Vaccines (1 of 2 - 13+ 2-dose series) [facility] Start: 2010 Screening for malignant neoplasm of cervix [facility] Start: 2002 DTaP/Tdap/Td Vaccine s (2 - Tdap) DTaP/Tdap/Td Vaccines (2 - Tdap) [facility] Start: 2001 Screening for malignant neoplasm of cervix [facility] Start: 1998 Diabetes mellitus screening Diabetes Screening [facility] Start: 1998 Hepatitis C screening Hepatitis C Sc [facility] Start: 1986 Pneumococcal Vaccine : Pediatrics (0 to 5 Years) and At-Risk Patients (6 to 64 Years) (1 of 2 - PCV) Pneumococcal Vaccine: Pediatrics (0 to 5 Years) and At-Risk Patients (6 to 64 Years) (1 of 2 - PCV) [facility] Start: 1980 IPV Vaccines (2 of 3 - 4-dose series) IPV Vaccines (2 of 3 - 4-dose series) [facility] Start: 1980 HIV screening HIV Screening [facility] Start: 1980 Lipid panel Lipid Panel [facility] Start: 1980 Yearly Adult Physical Yearly Adult P hysical [facility] End: 12-24-2023 Continuous Pulse oximetry, In Phase 1 Continuous Pulse oximetry, In Phase 1 Respiratory Care Routine Continuous until discontinued starting 12/24/2023 [facility] Work Phone: Comment on above: Continuous until dis continued starting 12/24/2023 End: 12-24-2023 Incentive spirometry Instruct Incentive spirometry Instruct Respiratory Care Routine Once for 1 Occurrences starting 12/24/2023 until 12/24/2023 [facility] Service Area Work Phone: Comment on above: Once for 1 Occurrenc es starting 12/24/2023 until 12/24/2023 Patient Education Depression, Ad ult (DC) [facility] Behavioral Health DC Instructions [facility] Work Phone: Patient referral [facility] Work Phone: Surgical pathology study [facility] Service Area Work Phone: Comment on above: Release Upon Orderin g for 1 Occurrences starting 12/24/2023, 1 completed THIN PREP TIS PAP AN D HR HPV DNA THIN PREP TIS PAP AND HR HPV DNA Pathology and Cytology Routine Well woman exam with routine gynecological exam Ordered: 01/03/2024 [facility] Comment on above: Ordered: 01/03/2024 Immunizations Immunization Date Immunization Notes [facility] Provider [facility]2020 SARS-CoV-2 (COVID-19 ) mRNA-1273 vaccine Gaspar SALAM [facility] 05-05-2020 SARS-CoV-2 (COVID-19 ) mRNA-1273 vaccine Gaspar SALAM [facility] 03-25-2020 influenza virus vaccine, unspecified formulation Sherri LARKIN Work Phone: [facility] 09-20-2018 hepatitis A vaccine, adult dosage Gaspar SALAM [facility] 09-20-2018 measles, mumps and rubella virus vaccine Gaspar SALAM [facility] 04-16-2017 hepatitis B vaccine, adult dosage Gaspar SALAM [facility] 11-08-2016 hepatitis B vaccine, adult dosage Gaspar SALAM [facility] 10-04-2016 hepatitis B vaccine, adult dosage Gaspar SALAM [facility] 1980 poliovirus vaccine, unspecified formulation Denisse Chiang MD Work Phone: [facility] Work Phone: NEGATED: Highlighted row has not occurred!07-09-2023 influenza virus vaccine, unspecified formulation Melissa Wheeleri [facility] NEGATED: Highlighted row has not occurred!07-06-2022 influenza virus vaccine, unspecified formulation Torres Yolandamini [facility] NEGATED: Highlighted row has not occurred!06-13-2021 influenza virus vaccine, unspecified formulation Gasparestelle CASTILLOAM [facility] Payers Date Payer Category Payer Private Health Insurance b [id number] 2021 Unknown [id number] 2017 Unknown [id number] 2016 Unknown [id number] 1980 Unknown [id number] 2.16.84 0.1.456059.3.579.2.593 1980 Unknown [id number] 2.16.84 0.1.224227.3.579.2.593 1980 Unknown [id number] 2.16.84 0.1.581866.3.579.2.593 1980 Unknown [id number] 2.16.84 0.1.589628.3.579.2.593 1980 Unknown [id number] 2.16.84 0.1.895707.3.579.2.593 1980 Unknown [id number] 2.16.84 0.1.842062.3.579.2.593 1980 Unknown [id number] 2.16.84 0.1.952990.3.579.2.593 1980 Unknown [id number] 2.16.84 0.1.828331.3.579.2.593 1980 Unknown [id number] 2.16.8 40.1.434215.3.579.2.1244 1980 Unknown [id number] 2.16.8 40.1.489078.3.579.2.1244 1980 Unknown [id number] 2.16.8 40.1.260395.3.579.2.1244 1980 Unknown [id number] 2.16.8 40.1.064887.3.579.2.1244 1980 Unknown [id number] 2.16.8 40.1.617312.3.579.2.1244 1980 Unknown [id number] 2.16.8 40.1.812153.3.579.2.1242 1980 Unknown [id number] 2.16.8 40.1.008466.3.579.2.1242 1980 Unknown [id number] 2.16.8 40.1.453735.3.579.2.1243 1980 Unknown [id number] 2.16.8 40.1.366471.3.579.2.1243 1980 Unknown [id number] 2.16.8 40.1.007764.3.579.2.1243 1980 Unknown [id number] 2.16.8 40.1.394368.3.579.2. 1980 Unknown [id number] 2.16.8 40.1.656637.3.579.2.727 1980 Unknown [id number] 2.16.8 40.1.213424.3.579.2.7 1980 Unknown [id number] 2.16.8 40.1.738963.3.579.2.727 1980 Unknown [id number] 2.16.8 40.1.095444.3.579.2.727 1959 [facility] [id number] 1959 Self-pay [id number] Unknown Self Pay [id number] Unknown [id number] 2.16.8 40.1.724360.3.579.2.531 Social History Date Type Detail Facility Start: 10-10-2019 End: 11-05-2024 Tobacco smoking status NVIS Never smoked tobacco (finding) [facility] Start: 1980 Sex Assigned At Female [facility] Start: 01-15-2023 End: 12-24-2023 Sex Assigned At [employer] Other Tobacco smoking status Never [facility] Tobacco smoking stat RUSTIS Tobacco smoking consumption unknown [facility] Work Phone: Start: 1980 Sex assigned at Not on file [facility] Work Phone: Start: 09-29-2023 End: 01-22-2024 Exposure to SARS-CoV-2 (event) Not sure [facility] Start: 11-28-2023 Tobacco use and exposure Smokeless tobacco non-user [facility] Work Phone: Start: 12-24-2023 End: 01-22-2024 Alcoholic beverage intake Current drinker of alcohol (finding) [facility] Work Phone: Start: 01-15-2023 End: 12-24-2023 Alcoholic beverage intake [facility] Work Phone: Start: 12-13-2023 Alcohol Comment rarely [facility] Work Phone: Start: 01-15-2023 End: 01-03-2024 Alcoholic beverage intake Lifetime non-drinker (finding) [facility] Start: 11-19-2023 Gender identity Identifies as female gender (finding) [facility] Sexual Orientation [facility] Start: 07-25-2018 Sex Female (finding) Abran Ruiz [facility] Medical Equipment Procedure Code Equipment Code Equipment Origin al Text Equipment Identifier Dates Cervical total d isc replacement prosthesis, sterile ()[id number] [id number] FDA Start: 10-10-2019 Goals Date Patient Goal Desired Activity /State Functional Status Date Assessment Result Facility 09-24-2024 Functional Status N/A [facility] 09-25-2023 Functional Status N/A [facility] 09-10-2023 Functional Status N/A [facility] 07-11-2023 Functional Status N/A [facility] 08-31-2022 Functional status Patient at [facility] Work Phone: Mental Status Date Assessment Result Facility 08-31-2022 Cognitive function Cognitive [facility] Patient at Baseline [facility] Work Phone: Clinical Notes 07-21-2021 to 12-29-2024 Denisse Chinag MD - 01/22/2024 3:40 PM EDTLaboraCHAYA Maradiaga - 01/03/2024 3:00 PM EDTDischarge InstructionsOp Note - Denisse Chiang MD - 12/24/2023 6:05 PM EDT Note Date & Type Note Facility 12-29-2024 Note SUBJECTIVE Reason for Visit: Ramy Martinez is a 44 y.o. year old female patient being seen for follow-up visit. HPI: Ramy Martinez is a 44 y.o. year old female with significant medical history of chronic chest pain, shortness of breath, bilateral arm numbness, and palpitations. She reports back in February of last year (2024) that she developed pneumonia and she has not been the same since. Complains of chronic shortness of breath and chest pain. Also reports after COVID-19 diagnosis that she noticed the symptoms started as well. Denies any family history of heart disease or sudden cardiac . 12/29/2024 office visit: Patient was seen and evaluated in the office today for a follow-up visit with recent test results. She complains of persistent chest pain and shortness of breath that has remained unchanged since her prior visit. The chest pain sometimes last a few minutes and sometimes up to a full day. She reports the chest pain as comes out of the blue and is unable to identify any specific triggers. Appears upset and is tearful. 10/20/2024 office visit (Dr. Hooks): Ramy Martinez is a 44 y.o. year [...] when her heart rate goes back down. Medical History[1] Surgical History[2] Problem List[3] family history includes Coronary artery disease in her paternal grandmother; Hypertension in her father; Lung cancer in her mother; Stroke in her paternal grandmother. Social History[4] OBJECTIVE Visit Vitals Smoking Status Never Physical Exam Constitutional: General Appearance: well-developed, appears stated age. Level of Distress: Tearful. Neck: Jugular Veins: normal jugular venous pressure. Lungs: Auscultation: no rales or rhonchi and normal breath sounds. Cardiovascular: Rate And Rhythm: regular Heart Sounds: normal S1 and s2; Systolic Murmur: not heard. Diastolic Murmur: not heard. Extremities: no edema Peripheral Pulses: Pulses: full and equal in all extremities except if noted. Abdomen: Inspection and Palpation: non distended or tender and soft. Musculoskeletal: Inspection: no joint tenderness or swelling. Neurologic: Gait: normal gait. Psychiatric: Mental Status: alert and normal affect. Skin: Inspection and Palpation: warm and dry. Allergies: Allergies[5] Outpatient Medications: Current Outpatient Medications Medication Instructions albuterol 90 mcg/actuation inhaler 2 puffs, Every 4 hours PRN gnnesdaumdt-gljsbznny-wkghtpfh (Trelegy Ellipta) 200-62.5-25 mcg blister with device 1 puff, Daily lamoTRIgine (LaMICtal) 25 mg tablet 2 tablets, Daily mesalamine ER (APRISO) 1.5 g, Daily Protonix 40 mg, Daily before breakfast traZODone (DESYREL) 50 mg, Nightly venlafaxine XR (EFFEXOR-XR) 75 mg, Daily Recent Labs: No visits with results within 6 Month(s) from this visit. Latest known visit with results is: No results found for any previous visit. Labs reviewed 09/26/2024: Hemoglobin 13.8, platelets 350 Sodium 143, potassium 3.7, BUN 8, creatinine 0.90, eGFR greater than 60, glucose 106, hemoglobin A1c 6.1%, albumin 4.3 LDL 97, triglycerides 39, HDL 80, total cholesterol 184 I have personally reviewed and anaylzed the following laboratory results above. These findings have been analyzed in the context of the patient's clinical presentation. Cardiovascular Diagnostic Studies: Stress test 12/03/2024: Requesting physician: YOLANDE HOOKS Procedure: Treadmill stress test General Information: Reason for Stress Test: [Chest pain] Cardiac History and Risk Factors: [No risk factors] Resting 12 - Lead Electrocardiogram: Resting twelve- lead EKG showed normal sinus rhythm, heart rate 76 bpm, normal EKG. Resting heart rate 68 bpm, resting blood pressure 128/74 mmHg. The patient exercised for a total of 6 minutes and 47 seconds according to standard Jesus protocol reaching stage III and 9.4 METS. Exercise was terminated secondary to fatigue. Patient did not experience any change in her baseline chest pain. Peak heart rate 150 bpm which represents 85% of age predicted maximum heart rate and peak blood pressure 142/82 mmHg. The patient was monitored for a total of 6 minutes and 24 seconds into recovery phase with heart rate back to 86 bpm and blood pressure to 130/76 mmHg. EKG during exercise, at peak exercise, and during recovery phase did not show significant T or ST changes or any arrhythmias Str (more content not included)... [facility] 10-20-2024 Note [facility] Subjective Ramyseble Matrinez is a 44 y.o. year old female [...] (four) hours if needed., Disp: , Rfl: kbnogmuaflu-rlpucrbll-bfalupvi (Trelegy Ellipta) 200-62.5-25 mcg blister with device, [...] 80, TSH 0. (more content not included)... [facility] 10-08-2024 Hospital Discharg e instructions Follow Up Care 10/08/2024 11:03:25 With:Miguel HAQUE, ABDIAS Osorio, [facility] Address: [address] [place], [place] [address]ashley, [facility] [address] [phone] When:Within 1 Year(s) [facility] 01-22-2024 History of Presen t illness Narrative HPI Ramy Martinez is a 43 y.o. female who has a hx of pancolonic UC, which was diagnosed in 2006. She was started on humira, which caused lupus like symptoms. She also reports developing antibodies to humira. Patient was then switched to Entyvio from [id number]. She unfortunately lost insurance and stopped taking it. She is currently taking Mesalamine. She was referred by [facility], Dr. Rivera for possible rectal prolapse. 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 traZODone (Desyrel) 50 mg tablet Take 1 [...] 01/22/2024 5:08 PM documented in this encounter [facility] Work Phone: 01-16-2024 Evaluation + Plan note Future Scheduled TestsVitamin D 25 Hydroxy 01/16/24Vitamin D 25 Hydroxy 09/24/24CBC w/ Auto Diff 09/24/24Comprehensive Metabolic Panel 09/24/24 [facility] 01-03-2024 History of Presen [...] of Inflammatory Bowel COLONOSCOPY 2006 HERNIA REPAIR 2006 TONSILLECTOMY 1986 REVIEW OF SYSTEMS Review of [...] nursing note reviewed. Exam conducted with a software qa manager present. Vitals: Estimated body mass index is [...] of: CHAYA Jean documented in this encounter [facility] 12-24-2023 [facility] Denisse Chiang MD - 12/24/2023 6:44 PM [...] previous diet. FOLLOW-UP: Please call office at [phone] to schedule follow-up appointment for 3-4 weeks from date of surgery. documented in this encounter [facility] Work Phone: 12-24-2023 Note Formatting of this n ote is different from the original. Excisional Hemorrhoidectomy Operative Note Date: 12/24/2023 OR Location: [facility] OR Name: Ramy Martinez, : 1980, Age: 43 y.o., , Sex: female Diagnosis Pre-op Diagnosis * Prolapsed internal hemorrhoids [K64.8] Post-op Diagnosis * Prolapsed internal hemorrhoids [K64.8] Procedures Excisional hemorrhoidectomy, 2 columns Surgeons * Denisse Chiang - Primary Resident/Fellow/Other Client Business Manager: Surgeons and Role: * Krystal Cerrato PA-C [...] EXAM Denisse Chiang MD 12/24/2023 1831 Staff: Behavioral Science Chair: Emily Venturaub Person: Denisse Drains and/or Catheters: [...] scrubbed for the entire procedure. Denisse Chiang [facility] Work Phone: 12-24-2023 Note Formatting of this n ote is different from the original. Date: 12/24/2023 OR Location: [facility] OR Name: Ramy Martinez, : 1980, Age: 43 y.o., , Sex: female Diagnosis Pre-op Diagnosis * Prolapsed internal hemorrhoids [K64.8] Post-op Diagnosis * Prolapsed internal hemorrhoids [K64.8] Procedures Excisional hemorrhoidectomy, 2 columns Surgeons * Denisse Chiang - Primary Resident/Fellow/Other Client Business Manager: Surgeons and Role: * Krystal Cerrato PA-C [...] EXAM Denisse Chiang MD 12/24/2023 183 Staff: Behavioral Science Chair: Emily Scrub Person: Denisse Findings: Enlarged right [...] scrubbed for the entire procedure. Denisse Chiang [facility] Work Phone: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
--- OUTSIDE RECORDS SUMMARY | 2025-01-09 07:00 | XMS_ITS | Encounter Summary ---
Author Organization [facility] Address [address] [facility] [place] [place] [address] Care Team Providers Care Manager Consumer Name Role Phone Unavailable Primary Care Provider Unavailabl e Encounter Details Date Type Department Care Team (Late Contact Info) Description 01/09/2024 Orders Only [facility] [address] [place] [address] Shyla Tavares LPN [address] [facility] Roberta CHAUDHARY [facility] [address] Social History Tobacco Use Types Packs/Day Years [...] 3:00 PM EDT Procedure Visit [facility] [address] [place] [address] Cintia Franco, ERMELINDA [address] [place] [address] documented as of this encounter Procedures Procedure [...]
--- OUTSIDE RECORDS SUMMARY | 2025-01-09 07:00 | XMS_ITS | Encounter Summary ---
Author Organization [facility] Address [address] [facility] [place] [address] Care Team Providers Care Research And Development Chemist Name Role Phone Unavailable Primary Care Provider Unavailabl e Encounter Details Date Type Department Care Team (Late Contact Info) Description 01/11/2024 Clinisync Result Encounter [facility] Department Unsolicited Sherri Reynolds PA [address] [facility] [address] [place], [facility] Social History Tobacco Use Types Packs/Day Years [...] EDT Procedure Visit [facility] [address] [place] [address] Cintia Franco, ERMELINDA [address] [facility] [place] [address] documented as of this encounter Procedures Procedure Name Priority Date/Time Associated Diagnosis Comments MM TOMOSYNTHESIS SCREENING BI 01/11/2024 9:13 AM EDT documented in this encounter Results * MM TOMOSYNTHESIS SCREENING BI (01/11/2024 9:13 AM EDT) Anatomical Region Laterality Modality Other 01/11/2024 9:13 AM EDT Narrative 01/11/2024 9:14 [place] [id number] Mammography Report Signed Patient: RAMY GUSMAN MR#: [id number] : 1980 Acct:[id number] Age/Sex: 43 / F ADM Date: 01/08/24 Loc: MAMMO Attending Dr: Sherri Reynolds Ordering Physician: Sherri Reynolds Results: Date of Service: 01/08/24 Follow Up: Procedure(s): MM tomosynthesis screening BI Accession Number(s): [id number] cc: Sherri Reynolds; Bipin Martell M.D. Patient Name: RAMY GUSMAN MR#: [id number] : 1980 Exam Date: 01/08/2024 Ordering Doctor: [...] uterine cancer at age 40. LOCATION: [facility] BREAST COMPOSITION: The breasts are heterogeneously [...] Dictated By: Evan Fernández M.D. Signed By: 01/11/2414 DD/ 2 TD/TT: Md Senior Research Scientist: Procedure Note Radiology, Radiologist, MD - 01/11/2024 [place] [id number] Mammography Report Signed Patient: RAMY GUSMAN MMR#: [id number] : 1980Acct:[id number] Age/Sex: 43 / FADM Date: 01/08/24 Loc: MAMMO Attending Dr: Sherri Reynolds Ordering Physician: Sherri Ojedaults: Date of Service: 01/08/24Follow Up: Procedure(s): MM tomosynthesis screening BI Accession Number(s): [id number] cc: Sherri Reynolds; Bipin Martell M.D. Patient Name: RAMY GUSMAN MR#: [id number] : 1980 Exam Date: 01/08/2024 Ordering Doctor: [...] uterine cancer at age 40. LOCATION: [facility] BREAST COMPOSITION: The breasts are heterogeneously [...] Fernández M.D. Signed By:01/11/24913 DD/ 2 TD/TT: Md Senior Research Scientist: us [facility] Final Result documented in this encounter Visit Diagnoses Not on filedocumented in this encounter
--- OUTSIDE RECORDS SUMMARY | 2025-01-09 07:01 | XMS_ITS | Clinical Summary ---
Author Organization [facility] Address [address] [place] [address] [place] [address] Care Team Providers Care Olericulture Teacher Name Role Phone Pedro Christian DO Primary Care Provider [phone] Allergies No known active allergies Medications albuterol [...] (06/11/2017): Added automatically from request for surgery [id number] Obesity: body mass index of 35.0-39.9 09/25/2016 Overview (08/07/2022): 08/05/22 IMO Update Family History Medical History Relation Name Comments Diabetes Maternal Grandfather Andrés Saini Type 2 GI Disease Maternal Grandfather Andrés Saini Divert iculosis Cancer- Other Maternal Grandmother Maryjane jackson john Ovarian cancer Other - Specify Mother lung disease GI Disease Paternal Grandfather Spencer Palacio He has diverticulitis Stroke Paternal Grandmother Mayrjane Palacio Intellectual Disability/DD/Autism Son Asim Walden Aspergers [...] (ADULT) 07/16/1999 CERVICAL CANCER SCREENING DISCUSSION 2001 HPV VACCINE (1 - 3-dose SCDM series) 07/16/2007 LIPID SCREENING 2020 MAMMOGRAM SCREENING DISCUSSION 2020 COVID-19 VACCINE ( - 2023-2 5 season) 2025 INFLUENZA VACCINE (#1) 2025 HEPATITIS C VIRUS SCREENING Completed 03/27/2016 PNEUMOCOCCAL VACCINE SERIES Aged Out No longer [...] IMMUNOLOGY ORDERABLES Final Res ult LAB, [facility] [address] [place] [address] from Last 3 Months or Most Recently Relevant to Health Maintenance Insurance [address] [place] [address] MMO Care Teams Olericulture Teacher Relationship Specialty Start Date End Date Pedro Christian DO PCP - General Family Medicine 10/01/15
--- OUTSIDE RECORDS SUMMARY | 2025-01-09 07:01 | XMS_ITS | Patient Health Record ---
Author Organization The [facility] in [place] Address [address] [place] [address] Care Team Providers Care Clip And Hanger Attacher Name Role Phone Edil Martell Primary Care Provider Jessi Alvaradoriky Sims [phone] Allergies Allergen (clinical drug ingredient) Drug/Non Drug Allergy documented on EMR Reaction Allergy Type Onset Date Status benzonatate Benzonatate hives,swelling,i tching,rash Drug Allergy Active Results Component Value Reference Range Notes XR Chest PA and Lateral (Rou megan CXR) * Reviewed date:10/06/2024 09:08:48 AM Interpretation: Performing Lab: Notes/Report: TSH Reviewed date:09/27/2024 11:59:18 AM Interpretation: Performing Lab: Notes/Report: [facility] , Thyroid Stimulating Hormone 0.699 0.358-3.740 uIU/mL Performing Lab: see note ML - [facility] LB T4 Reviewed date:09/27/2024 11:59:18 AM Interpretation: Performing Lab: Notes/Report: [facility] , T4 Thyroxine 7.70 4.80-13.90 ug/dL Performing Lab: see note - [facility] LB PROF 14(COMP METB) Reviewed date:09/27/2024 11:59:18 AM Interpretation: Performing Lab: Notes/Report: [facility] , Sodium 143 136-145 mmol/L Potassium 3.7 [...] 1.4 Performing Lab: see note ML - [facility] LIPID PROFILE Reviewed date:09/27/2024 11:59:18 AM Interpretation: Performing Lab: Notes/Report: [facility] , Triglycerides 39 <=150 mg/dL Cholesterol 184 <=200 mg/dL HDL Cholesterol 80 40-60 mg/dL <40 mg/dl - HIGH CARDIOVASCULAR RISK > or =60 mg/dl - LOW CARDIOVASCULAR RISK LDL Cholesterol Calculated 97.0 >190 mg/dl VERY HIGH <100 mg/dl OPTIMAL 130-159 mg/dl BORDERLINE HIGH 160-189 mg/dl HIGH 100-129 mg/dl NEAR OR ABOVE OPTIMAL VLDL CHOLESTEROL 7.8 Chol HDL Ratio 2.3 3.3 - 4.4 LOW RISK 4.4 - 7.1 AVERAGE RISK 7.1 - 11.0 MODERATE RISK >11.0 HIGH RISK Performing Lab: see note ML - [facility] IRON Reviewed date:09/27/2024 11:59:18 AM Interpretation: Performing Lab: Notes/Report: [facility] , Iron 93.0 50.0-170.0 ug/dL Performing Lab: see note ML - [facility] GLYCOHEMOGLOBIN A1C Reviewed date:09/27/2024 11:59:18 AM Interpretation: Performing Lab: Notes/Report: [facility] , Glycohemoglobin A1C 6.1 4.5-6.2 % ADA RECOMMENDED LIMIT 4.0 - 6.0 > 7.0 ADA THERAPEUTIC TARGET < 7.0 ACTION SUGGESTED Estimated Average Glucose 128 Performing Lab: see note ML - [facility] FREE T3 Reviewed date:09/27/2024 11:59:18 AM Interpretation: Performing Lab: Notes/Report: [facility] , Free T3 2.98 2.18-3.98 pg/mL Performing Lab: see note ML - [facility] LB CBC AUTO DIFF Reviewed date:09/27/2024 11:59:18 AM Interpretation: Performing Lab: Notes/Report: [facility] , White Blood Count 5.5 4.0-11.0 10 [...] Performing Lab: see note ML - [facility] LB RT pulmonary function test Reviewed date:10/01/2024 09:37:29 AM Interpretation: Performing Lab: Notes/Report: Source Facility: [facility] [place] [address] [place] [address] Respiratory Report Signed Patient: MADHURI GUSMAN MR#: [id number] : 1980 Acct:[id number] Age/Sex: 44 / F ADM Date: 09/25/24 Loc: CARD Attending Dr: Soumya Alvarado D.O. Ordering Physician: Soumya Alvarado D.O. Date of Service: 09/25/24 Procedure(s): RT pulmonary function test Accession Number(s): [id number] cc: [facility] Test Date: 2024-09-25 Pat Name: MADHURI GUSMAN Department: Room: - Gender: Female Tread Cutter: Edwin Banerjee RRT : 1980 Requested By: Soumya Alvarado Order Number: [id number] Reading MD: Soumya Alvarado Interpretive Statements Pulmonary [...] Signed By: 10/01/24 0920 DD/ 1311 TD/TT: Chemical Research Worker: [place] [address] Respiratory Report Signed Patient: ANDREA GUSMAN MR#: [id number] : 1980 Acct:[id number] Age/Sex: 44 / F ADM Date: 09/25/24 Loc: CARD Attending Dr: Soumya Alvarado D.O. Ordering Physician: Soumya Alvarado D.O. Date of Service: 09/25/24 Procedure(s): RT pulmonary function test Accession Number(s): [id number] cc: [facility] Test Date: 2024-09-25 Pat Name: MADHURI DOZIER Department: 37 Room: - Gender: Female Tread Cutter: Edwin Banerjee RRT : 1980 Requ ested By: Soumya Alvarado Order Number: [id number] Reading MD: Soumya Alvarado Interpretive Statements Pulmonary [...] Signed By: 10/01/24 0920 DD/ 1311 TD/TT: Chemical Research Worker: Gram Stain Evaluation Reviewed date:09/01/2024 07:46:23 AM [...] Lower Respiratory Culture See Below For Report WILL FOLLOW Lower Respiratory Culture Lower Respiratory Culture Routine respiratory lindsey WILL FOLLOW Lower Respiratory Culture Lower Respiratory Culture [facility]formed [facility] WILL FOLLOW Lower Respiratory Culture Lower Respiratory Culture [address] [place] [phone] WILL FOLLOW Lower Respiratory Culture Lower Respiratory Culture Automotive Parts Person: Bryce Xiong PhD, Phone: [phone] WILL FOLLOW Lower Respiratory Culture Performing Lab: see note SEE REPORT - Dance Entertainer Id information not found for OBX-specific photo producer legend LC - [facility] LB Gram Stain Evaluation [...] 4 See Below For Report Result 4 DYE COLORIST DYER Performing Lab: see note LC - [facility] LB Result 3 Reviewed date:09/01/2024 07:46:23 AM Interpretation: Performing Lab: Notes/Report: [facility] , Result 3 See Below For Report DYE COLORIST DYER Result 3 Performing Lab: see note LC - [facility] LB Result 2 Reviewed date:09/01/2024 07:46:23 AM Interpretation: Performing Lab: Notes/Report: [facility] , Result 2 See Below For Report Result 2 DYE COLORIST DYER Performing Lab: see note LC - [facility] [...] Lab: see note LC - [facility] LB Aerobe ID + Suscept Reviewed date:08/31/2024 01:16:26 PM Interpretation: Performing Lab: Notes/Report: [facility] , Aerobe ID + Suscept See Below For Report Organism: 1.1 O:STAWAR Antibiotic Interpretation EZEQUIEL Status Aerobe ID + Suscept Isolated Aerobe ID + Suscept *ABNORMAL* Organism: 1.1 O:STAWAR Antibiotic Interpretation EZEQUIEL Status Aerobe ID + Suscept Isolated Aerobe ID + Suscept Gram positive cocci Organism: 1.1 O:STAWAR Antibiotic Interpretation EZEQUIEL Status Aerobe ID + Suscept Isolated Aerobe ID + Suscept *ABNORMAL* Organism: 1.1 O:STAWAR Antibiotic Interpretation EZEQUIEL Status Aerobe ID + Suscept Isolated Aerobe ID + Suscept Received pediatric b ottle only. Organism: 1.1 O:STAWAR Antibiotic Interpretation EZEQUIEL Status Aerobe ID + Suscept Isolated Aerobe ID + Suscept Identification and sensitivities to follow. Organism: 1.1 O:STAWAR Antibiotic Interpretation EZEQUIEL Status Aerobe ID + Suscept Isolated Aerobe ID + Suscept Organism: Staphyloco ccus warneri : Organism: 1.1 O:STAWAR Antibiotic Interpretation EZEQUIEL Status Aerobe ID + Suscept Isolated Aerobe ID + Suscept *ABNORMAL* Organism: 1.1 O:STAWAR Antibiotic Interpretation EZEQUIEL Status Aerobe ID + Suscept Isolated Aerobe ID + Suscept Based on resistance to oxacillin this isolate would be Organism: 1.1 O:STAWAR Antibiotic Interpretation EZEQUIEL Status Aerobe ID + Suscept Isolated Aerobe ID + Suscept resistant to all currently available beta-lactam Organism: 1.1 O:STAWAR Antibiotic Interpretation EZEQUIEL Status Aerobe ID + Suscept Isolated Aerobe ID + Suscept antimicrobial agents , with the exception of the newer Organism: 1.1 O:STAWAR Antibiotic Interpretation EZEQUIEL Status Aerobe ID + Suscept Isolated Aerobe ID + Suscept cephalosporins with anti-MRSA activity, such as Organism: 1.1 O:STAWAR Antibiotic Interpretation EZEQUIEL Status Aerobe ID + Suscept Isolated Aerobe ID + Suscept Ceftaroline Organism: 1.1 O:STAWAR Antibiotic Interpretation EZEQUIEL Status Aerobe ID + Suscept Isolated Aerobe ID + Suscept Received pediatric b ottle only. Organism: 1.1 O:STAWAR Antibiotic Interpretation EZEQUIEL Status Aerobe ID + Suscept Isolated Aerobe ID + Suscept Staphylococcus warneri Organism: 1.1 O:STAWAR Antibiotic Interpretation EZEQUIEL Status Aerobe ID + Suscept Isolated Aerobe ID + Suscept See Below For Report Organism: 1.1 O:STAWAR Antibiotic Interpretation EZEQUIEL Status Aerobe ID + Suscept Isolated Aerobe ID + Suscept Performed at: [facility] Organism: 1.1 O:STAWAR Antibiotic Interpretation EZEQUIEL Status Aerobe ID + Suscept Isolated Aerobe ID + Suscept [address], [place] [id number] Organism: 1.1 O:STAWAR Antibiotic Interpretation EZEQUIEL Status Aerobe ID + Suscept Isolated Aerobe ID + Suscept Automotive Parts Person: Rosemary Xiong PhD, Phone: [phone] Organism: 1.1 O:STAWAR Antibiotic Interpretation EZEQUIEL Status Aerobe ID + Suscept Isolated Aerobe ID + Suscept See Below For Report Organism: 1.1 O:STAWAR Antibiotic Interpretation EZEQUIEL Status Aerobe ID + Suscept Isolated Aerobe ID + Suscept Ciprofloxacin S F Organism: 1.1 O:STAWAR Antibiotic Interpretation EZEQUIEL Status Aerobe ID + Suscept Isolated Aerobe ID + Suscept Erythromycin R F Organism: 1.1 O:STAWAR Antibiotic Interpretation EZEQUIEL Status Aerobe ID + Suscept Isolated Aerobe ID + Suscept Gentamicin S F Organism: 1.1 O:STAWAR Antibiotic Interpretation EZEQUIEL Status Aerobe ID + Suscept Isolated Aerobe ID + Suscept Levofloxacin S F Organism: 1.1 O:STAWAR Antibiotic Interpretation EZEQUIEL Status Aerobe ID + Suscept Isolated Aerobe ID + Suscept Moxifloxacin S F Organism: 1.1 O:STAWAR Antibiotic Interpretation EZEQUIEL Status Aerobe ID + Suscept Isolated Aerobe ID + Suscept Oxacillin R F Organism: 1.1 O:STAWAR Antibiotic Interpretation EZEQUIEL Status Aerobe ID + Suscept Isolated Aerobe ID + Suscept Penicillin R F Organism: 1.1 O:STAWAR Antibiotic Interpretation EZEQUIEL Status Aerobe ID + Suscept Isolated Aerobe ID + Suscept Rifampin S F Organism: 1.1 O:STAWAR Antibiotic Interpretation EZEQUIEL Status Aerobe ID + Suscept Isolated Aerobe ID + Suscept Tetracycline S F Organism: 1.1 O:STAWAR Antibiotic Interpretation EZEQUIEL Status Aerobe ID + Suscept Isolated Aerobe ID + Suscept Trimethoprim/Sulfame thoxa zole S F Organism: 1.1 O:STAWAR Antibiotic Interpretation EZEQUIEL Status Aerobe ID + Suscept Isolated Aerobe ID + Suscept Vancomycin S F Organism: 1.1 O:STAWAR Antibiotic Interpretation EZEQUIEL Status Aerobe ID + Suscept Isolated Aerobe ID + Suscept Clindamycin R F Organism: 1.1 O:STAWAR Antibiotic Interpretation EZEQUIEL Status Aerobe ID + Suscept Isolated Performing Lab: see note LC - [facility] LB SEE REPORT - Dance Entertainer Id information not found for OBX-specific photo producer legend Blood Culture 1 Reviewed date:08/31/2024 01:16:26 PM Interpretation: Performing Lab: Notes/Report: [facility] , Blood Culture 1 See Below For Report NG5D NO GROWTH AT 5 DAYS.^NO GROWTH AT 5 DAYS. Blood Culture 1 Performing Lab: see note ML - [facility] LB BLOOD CULTURE ID PANEL Reviewed date:08/26/2024 02:31:12 PM Interpretation: Performing Lab: Notes/Report: [facility] , CTX-M NOT APPLICABLE NOT DETECTE IMP NOT APPLICABLE NOT DETECTE KPC NOT APPLICABLE NOT DETECTE mcr-1 NOT APPLICABLE NOT DETECTE mecA/C DETECTED NOT DETECTE Dung at 0420 RESULTS CALLED TO VIVIANE CUENCA RN @BY Hannah Thurston mecA/C and MREJ (MRSA) NOT APPLICABLE NOT DETECTE NDM NOT APPLICABLE NOT DETECTE OXA-48-like NOT APPLICABLE NOT DETECTE Avi/B NOT APPLICABLE NOT DETECTE VIM NOT APPLICABLE NOT DETECTE Source BLOOD Enterococcus faecalis NOT DETECTED NOT DETECTE Enterococcus faecium NOT DETECTED NOT DETECTE Listeria monocytogenes NOT DETECTED NOT DETECTE Staphylococcus spp. DETECTED NOT DETECTE RESULTS CALLED TO VIVIANE CUENCA RN @BY Hannah Thurston Dung at 0420 Staphylococcus aureus NOT DETECTED NOT DETECTE Staphylococcus epidermidis DETECTED NOT DETECTE Dung at 0420 RESULTS CALLED TO VIVIANE CUENCA RN @BY Hannah Thurston Staphylococcus lugdunensis NOT DETECTED NOT DETECTE Streptococcus [...] Performing Lab: see note ML - [facility] LB MM tomosynthesis screening B I Reviewed date:01/13/2024 09:10:38 PM Interpretation: Performing Lab: Notes/Report: Source Facility: [place] [address] [place] [address] Mammography Report Signed Patient: MADHURI GUSMAN MR#: [id number] : 1980 Acct:[id number] Age/Sex: 43 / F ADM Date: 01/08/24 Loc: MAMMO Attending Dr: Sherri Reynolds Ordering Physician: Sherri Reynolds Results: Date of Service: 01/08/24 Follow Up: Procedure(s): MM tomosynthesis screening BI Accession Number(s): [id number] cc: Sherri Reynolds; Bipin Martell M.D. Patient Name: MADHURI GUSMAN MR#: [id number] : 1980 Exam Date: 01/08/2024 Ordering Doctor: [...] uterine cancer at age 40. LOCATION: [facility] BREAST COMPOSITION: The breasts are [...] M.D. Signed By: 01/11/24913 DD/ 2 TD/TT: Chemical Research Worker: [place] [address] Mammography Report Signed Patient: ANDREA GUSMAN MR#: [id number] : 1980 Acct:[id number] Age/Sex: 43 / F ADM Date: 01/08/24 Loc: MAMMO Attending Dr: Sherri Reynolds Ordering Physician: Sherri Reynolds Results: Date of Service: 07/28 Follow Up: Procedure(s): MM tomosynthesis screening BI Accession Number(s): [id number] cc: Sherri Reynolds; Bipin Martell M.D. Patient Name: MADHURI GUSMAN MR#: [id number] : 1980 Exam Date: 01/08/2024 Ordering Doctor: [...] uterine cancer at age 40. LOCATION: [facility] BREAST COMPOSITION: The breasts are heterogeneously [...] M.D. Signed By: 01/11/24913 DD/ 2 TD/TT: Chemical Research Worker: [id number] SCREENIN G SWAB Reviewed date:09/22/2024 08:50:50 AM Interpretation: Performing Lab: Notes/Report: COVID-19, Flu A+B IH Reviewed date:08/25/2024 08:13:30 PM Interpretation: Performing Lab: Notes/Report: COVID neg FLU A neg FLU B neg Control pos CA echo doppler complete Reviewed date:11/26/2024 07:46:07 PM Interpretation: Performing Lab: Notes/Report: Source Facility: [place] [address] Cardiology Report Signed Patient: MADHURI GUSMAN MR#: [id number] : 1980 Acct:[id number] Age/Sex: 44 / F ADM Date: 11/26/24 Loc: CARD Attending Dr: YOLANDE NGUYEN Ordering Physician: YOLANDE NGUYEN Date of Service: 11/26/24 Procedure(s): CA echo doppler complete Accession Number(s): [id number] cc: Bipin Martell M.D.; YOLANDE NGUYEN Patient Name: MADHURI GUSMAN MR#: [id number] : 1980 Exam Date: 11/26/2024 Ordering Doctor: [...] 18:49 Dictated By: YOLANDE NGUYEN Signed By: 11/26/241849 DD/ 48 TD/TT: Chemical Research Worker: [place] [address] Cardiology Report Signed Patient: ANDREA GUSMAN MR#: [id number] : 1980 Acct:[id number] Age/Sex: 44 / F ADM Date: 11/26/24 Loc: CARD Attending Dr: YOLANDE NGUYEN Ordering Physician: YOLANDE NGUYEN Date of Service: 11/26/24 Procedure(s): CA ech o doppler complete Accession Number(s): [id number] cc: Bipin Martell M.D. ; YOLANDE NGUYEN Patient Name: MADHURI GUSMAN MR#: [id number] : 1980 Exam Date: 11/26/2024 Ordering Doctor: [...] mobility. No stenosis. Trivial regurgitation. PERICARDIUM: No evid ence of pericardial effusion. IVC: Collapses with inspiration. [...] 18:49 Dictated By: YOLANDE NGUYEN Signed By: 11/26/241849 DD/ 48 TD/TT: Chemical Research Worker: XR chest 2V Reviewed date:10/06/2024 10:15:32 AM Interpretation: Performing Lab: Notes/Report: Source Facility: [place] [address] XRay Report Signed Patient: MADHURI GUSMAN MR#: [id number] : 1980 Acct:[id number] Age/Sex: 44 / F ADM Date: 10/06/24 Loc: RAD Attending Dr: Soumya Alvarado D.O. Ordering Physician: Soumya Alvarado D.O. Date of Service: 10/06/24 Procedure(s): XR chest 2V Accession Number(s): [id number] cc: Bipin Martell M.D.; Soumya Alvarado D.O. [place] [address] Patient Name: MADHURI GUSMAN MRN: [id number] date: 1980 Sex: F Assigned Patient Location: RAD Current Patient Location: RAD Accession/Order Number: [id number] Exam Date: 10/06/2024 08:54 Report Date: 10/06/2024 [...] Wang M.D. 10/06/2024 8:56 AM Dictation Location: [place] [address] Electronically authenticated by: [id number] Y Date: 10/06/2024 08:56 Dictated By: Anayeli Wang M.D. Signed By: 10/06/24 0858 DD/ 5 TD/TT: Chemical Research Worker: [place] [address] XRay Report Signed Patient: ANDREA GUSMAN MR#: [id number] : 1980 Acct:[id number] Age/Sex: 44 / F ADM Date: 10/06/24 Loc: TRICIA Attending Dr: Soumya Alvarado D.O. Ordering Physician: Soumya Alvarado D.O. Date of Service: 10/06/24 Procedure(s): XR chest 2V Accession Number(s): [id number] cc: Bipin Martell M.D. ; Soumya Alvarado D.O. [place] [address] Patient Name: MADHURI GUSMAN MRN: [id number] date: 1980 Sex: F Assigned Patient Location: [facility] Current Patient Loca tion: RAD Accession/Order Numb er: [id number] Exam Date: 10/06/2024 08:54 Report Date: 10/06/2024 [...] Wang M.D. 10/06/2024 8:56 AM Dictation Location: [place] [address] Electronically authenticated by: [id number] Y Date: 10/06/2024 08:56 Dictated By: Anayeli Wang M.D. Signed By: 10/06/24 0858 DD/ 0856 TD/TT: Chemical Research Worker: ECG 12 lead Reviewed date:08/26/2024 02:31:12 PM Interpretation: Performing Lab: Notes/Report: Source Facility: [place] [address] [place] [address] Electrocardiograph Report Signed Patient: MADHURI GUSMAN MR#: [id number] : 1980 Acct:[id number] Age/Sex: 44 / F ADM Date: 08/25/24 Loc: [place] [address]: Bipin Martell M.D. Ordering Physician: Margarito Santamaria M.D. Date of Service: 08/25/24 Procedure(s): ECG 12 lead Accession Number(s): [id number] cc: [facility] Test Date: 2024-08-25 Pat Name: MADHURI GUSMAN Department: Room: [facility] Gender: Female Tread Cutter: : 1980 Requested By: 1030 Order Number: [id number] Reading MD: YOLANDE NGUYEN M.D. Measurements Intervals [place] Rate: 108 P: 73 CO: 162 QRS: 91 QRSD: 90 T: 56 [...] By: YOLANDE NGUYEN Signed By: 08/25/242142 DD/ 7 TD/TT: Chemical Research Worker: [place] [address] Electrocardiograph Report Signed Patient: ANDREA GUSMAN MR#: [id number] : 1980 Acct:[id number] Age/Sex: 44 / F ADM Date: 08/25/24 Loc: MS 215- Attending Dr: Saw Martell M.D. Ordering Physician: Margarito Santamaria M.D. Date of Service: 08/25/24 Procedure(s): ECG 12 lead Accession Number(s): [id number] cc: [facility] Test Date: 2024-08-25 Pat Name: MADHURI DOZIER Department: 37 Room: [facility] Gender: Female Tread Cutter: : 1980 Diana lin By: 1030 Order Number: [id number] Reading MD: YOLANDE NGUYEN M.D. Measurements Intervals [place] Rate: 108 P: 73 CO: 162 QRS: 91 QRSD: 90 T: 56 [...] By: YOLANDE NGUYEN Signed By: 08/25/242142 DD/ 7 TD/TT: Chemical Research Worker: SARS-CoV-2 Ag* Reviewed date:08/25/2024 08:13:30 PM Interpretation: Performing Lab: Notes/Report: [facility] , SARS-CoV-2 Ag NEGATIVE NEGATIVE viruses or pathogens. The emergency use of this test is CLIA that meet the requirements to perform moderate or high This test has not been FDA cleared or approved, but has been circumstances exist justifying the authorization of the detection of proteins from SARS-CoV-2, not for any other and/or diagnosis of Covid-19 under section 564(b)(1) of the terminated or authorization is revoked sooner. emergency use of in vitro diagnostic tests for detection (EUA) for use by authorized laboratories certified under Act, 21 U.S.C. 360bbb-3(b)(1), unless the declaration is authorized by the FDA under an Emergency Use Authorization authorized for the duration of the declaration that complexity testing. This test has been authorized only for Performing Lab: see note ML - [facility] LB RSV Reviewed date:08/25/2024 08:13:30 PM Interpretation: Performing Lab: Notes/Report: [facility] , Respiratory Syncytial Virus Not Detected NOT DETECTE Performing Lab: see note ML - [facility] LB PROF CHEM 8 (BAS METB) Reviewed date:08/25/2024 08:13:30 PM Interpretation: Performing Lab: Notes/Report: [facility] , Sodium 143 136-145 mmol/L Potassium 3.6 [...] mg/dL Performing Lab: see note ML - [facility] LB INFLUENZA A AND B AG Reviewed date:08/25/2024 08:13:30 PM Interpretation: Performing Lab: Notes/Report: [facility] , Influenza Virus A Antigen Negative cannot be ruled out. Flu A antigen in the sample may be Negative for Flu A protein antigen. Infection due to Flu A below the detection limit of the test. Influenza Virus B Antigen Negative cannot be ruled out. Flu B antigen in the sample may be Negative for Flu B protein antigen. Infection due to Flu B below the detection limit of the test. Performing Lab: see note ML - [facility] LB CBC AUTO DIFF Reviewed date:08/25/2024 08:13:30 PM Interpretation: Performing Lab: Notes/Report: [facility] , White Blood Count 7.7 4.0-11.0 10 [...] Performing Lab: see note ML - [facility] LB Estradiol Reviewed date:09/29/2024 03:46:24 PM Interpretation: Performing Lab: Notes/Report: [facility] , Estradiol 11.2 . pg/mL Adult Female Range Follicular phase 12.5 - 166.0 Luteal phase 43.8 - 211.0 1st trimester 215.0 - >4300.0 Twin ECLIA methodology Postmenopausal <6.0 - 54.7 Ovulation phase 85.8 - 498.0 Performing Lab: see note - [facility] LB FSH Reviewed date:09/29/2024 03:46:24 PM Interpretation: Performing Lab: Notes/Report: [facility] , FSH 71.8 . mIU/mL Adult Female Range Postmenopausal 25.8 - 134.8 Follicular phase 3.5 - 12.5 Luteal phase 1.7 - 7.7 Ovulation phase 4.7 - 21.5 Performing Lab: see note - [facility] LB Progesterone Reviewed date:09/29/2024 03:46:24 PM Interpretation: Performing Lab: Notes/Report: [facility] , Progesterone 0.1 . ng/mL [address] [place], [place] [phone] Automotive Parts Person: Bryce Xiong PhD, Phone: [phone] Luteal phase 1.8 - 23.9 Ovulation phase 0.1 - 12.0 Postmenopausal 0.0 - 0.1 Third trimester 58.7 - 214.0 Follicular phase 0.1 - 0.9 Performed at: [facility] Second trimester 25.4 - 83.3 First trimester 11.0 - 44.3 Performing Lab: see note [facility] LB PROLACTIN Reviewed date:09/29/2024 03:46:24 PM Interpretation: Performing Lab: Notes/Report: [facility] , Prolactin 10.4 4.8-33.4 ng/mL Performing Lab: see note [facility] INSULIN Reviewed date:09/30/2024 04:14:01 PM Interpretation: Performing Lab: Notes/Report: [facility] , Insulin 13.5 2.6-24.9 uIU/mL [employer] Person: Bryce Xiong PhD, Phone: [phone] [address], [place] [phone] Performed at: [facility] Performing Lab: see note - [facility] LB Reason For Referral Reason Chest pain Diagnosis 1 Chest pain, unspecif ied (R07.9) Referral Organization [facility] [place] Referring Provider First Name Soumya Referring Provider Last Name Zabrina Referring Provider Speciality Pulmonolog y Referred Provider Specialty Cardiology General Notes Juanito Yu 10/06 09:47:08 AM >Referral taken to [facility] Cardiology and given to Aimee Renae Riley 10/09/2024 11:18:30 AM >I called and spoke with Kim at [facility] Cardiology. 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 Problem Obesity (000569826) Obesity (E66.9) Active confirmed Problem Obstructive sleep apnea syndrome (89607697) RASHAD (obstructive sleep apnea) (G47.33) Active confirmed Problem Well adult (916646559) Well adult (Z00.00) Active confirmed Problem Community acquired pneumonia (681460158) Community acquired pneumonia (J18.9) Active confirmed Problem Emphysema (96957575) 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) Active confirmed Problem History of endocrine disorder (186952886) History of diet-controlled diabetes (Z86.39) Active confirmed Problem [id number] Suicide attempt, initial encounter (T14.91XA) Active confirmed [...] Date Performed Result Body Sit e PFT (36132, 31147, 85544) 09/08/2024 09/25/2024 N/A Encounters Encounter Location Date Provider Diagnosis [facility] [address] [place] [address] 01/31/2024 [facility] [address] [place] [address] 02/28/2024 [facility] [address] [place] [address] 09/29/2024 Edil [facility] [place] [address] [facility] [place] [address] 10/02/2024 [facility] [address] [facility] [place] [address] 10/06/2024 [facility] [address] [facility] [place] [address] 12/10/2024 [facility] [address] [place] [place] [address] 08/26/2024 Edil Christophery [facility] [place] [address] [facility] [place] [address] 08/26/2024 [facility] [address] [facility] [place] [place] [address] 08/28/2024 Edil Hoy Acute bronchiolitis J21.9 [facility] [address] [place] [place] [address] 08/31/2024 Edil Hoy Acute bronchiolitis J21.9 and Gastritis K29.70 [facility] [address] [place] [place] [address] 09/08/2024 Edil Hoy [facility] [address] [place] [place] [address] 09/27/2024 Edil Hoy [facility] [address] [place] [address] 09/26/2024 Edil Hoy Well adult Z00.00 [facility] [address] [place] [address] 11/03/2024 Edil Hoy History of diet-controlled diabetes Z86.39 [facility] [address] [place] [address] 07/17/2024 Edil Hoy Nasal congestion R09 .81 and Acute bronchitis, unspecified organism J20.9 [facility] [address] [place] [place] [address] 07/30/2024 Edil Hoy Gastritis K29.70 [facility] [address] 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 ; Obesity E66.9 and History of diet-controlled diabetes Z86.39 [facility] [place] [address] [place] [address] 09/08/2024 Soumya Alvarado Severe persistent asthma, uncomplicated J45.50 ; Peripheral eosinophilia D72.19 ; 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 You may use a humidifier or vaporizer to help keep the drainage moist. Rcef-tpq-lgxvwgi Nasal Saline may help the stuffy and runny nose. Use Ibuprofen and or Tylenol as needed for fever, chills, body aches or pain. Children 5 years old should not be given cizo-hhn-ftfwane cough and cold medications such as guaifenesin and dextromethorphan. If you're over age 5, you may try djhi-vwa-fuznprn cold medications such as guaifenesin and dextromethorphan, [...] unremarkable, then I would suggest referral to garment manufacturer for allergy testing (would be difficult to [...] vaporizer to help keep the drainage moist. Ecbr-eln-zupczmr Nasal Saline may help the stuffy and runny nose. Use Ibuprofen and or Tylenol as needed for fever, chills, body aches or pain. Children 5 years old should not be given hbgs-fth-zqryfqv cough and cold medications such as guaifenesin and dextromethorphan. If you're over age 5, you may try voaq-aaj-agqufsw cold medications such as guaifenesin and dextromethorphan, [...] she states PCP is signing orders. 09/08/2024 intermediate (current) use of inhaled steroids (ICD-10 - Z79.51) Patient was counseled to rinse & gargle with water after inhaled corticosteroid use. 10/06/2024 RASHAD (obstructive sleep apnea) (ICD-10 - G47.33) Defer to PCP. 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
--- NOTE | 2025-01-09 07:25 | MM_ITS ---
Patient Name: RAMY MARTINEZ MR#: [id number] : 1980 Exam Date: 01/09/2025 Ordering Doctor: CHAYA BACA . RADIOLOGY REPORT PROCEDURE: MM TOMOSYNTHESIS SCREENING BI COMPARISON: MM TOMOSYNTHESIS SCREENING BI, 01/08/2024. MG MAMM SCREEN 3D FAISAL CAD, 02/01/2022. INDICATIONS: Screening Calculator Name NCI Breast Cancer Risk Assessment Tool 5 Year Breast Cancer Risk 0.60% Lifetime Breast Cancer Risk 7.10% Personal Breast Cancer No Personal Ovarian Cancer No Treatments None Family Cancers Mother with lung/brain cancer at age 57; Grandmother-maternal with uterine cancer at age 40. LOCATION: The [facility] BREAST COMPOSITION: The breasts are heterogeneously dense, which may obscure small masses. FINDINGS: RIGHT BREAST: No significant suspicious finding. There are similar focal asymmetries paired benign-appearing lymph nodes are noted along the chest wall. LEFT BREAST: No significant suspicious finding. Benign-appearing lymph nodes are present. DIAGNOSTIC CATEGORY 2--BENIGN FINDING. NO CHANGE FROM COMPARISON. RECOMMENDATIONS: ROUTINE MAMMOGRAM AND CLINICAL EVALUATION IN 12 MONTHS. Dictated by: Christian Hahn MD on 01/09/2025 at 13:16 Approved by: Christian Hahn MD on 01/09/2025 at 13:20
== END 2025-01-09 06:59 | disposition home or self-care (01) ==
LOC: MAMMO 06:58
PROVIDERS: PCP Family Medicine; Visit Provider Physician Assistant
DX: Z12.31 Encounter for screening mammogram for malignant neoplasm of breast (principal); Z80.1 Family history of malignant neoplasm of trachea, bronchus and lung; Z80.8 Family history of malignant neoplasm of other organs or systems
CPT/HCPCS: 77063; 77067

== ENCOUNTER 2025-01-12 21:10 | Outpatient (REF) | payer BC, SELFPAY ==
--- OUTSIDE RECORDS SUMMARY | 2025-01-12 21:15 | XMS_ITS | CCD ---
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 Name Role Phone ABERRA, JOSEFINA Unavailable Unavailable HOUSE, JUDITH P Unavailable Unavailable HOUSE, JUDITH P Unavailable Unavailable ABERRA, JOSEFINA Unavailable Unavailable HOUSE, JUDITH P Unavailable Unavailable HOUSE, JUDITH P Unavailable Unavailable HOUSE, JUDITH P Unavailable Unavailable LI, NA Unavailable Unavailable LI, NA Unavailable Unavailable SCOTT, JOSEFINA Unavailable Unavailable MD Yaquelin Perez Primary Care Provider [phone] MD Reddy Dewitt Attending Provider Reddy [...] HOY ., DR JAMISON Primary Care Unavailable CANBY, DR KRYSTAL Pelaez Consulting Unavailable LUIS ., DR CHASE Consulting Unavailable HOY ., DR JAMISON Admitting Unavailable HOY ., DR JAMISON Attending Unavailable HOY ., DR JAMISON Primary Care Unavailable CHRIS .DR JAMISON Consulting Unavailable QUINN, DR VALVERDE Admitting [...] Unavailable CHRIS ., DR JAMISON Consulting Unavailable JADEN, GASPAR Admitting Unavailable CHASITY BOOKER Attending Unavailable CHRIS ., DR JAMISON Primary Care Unavailable MD Yaquelin Perez Primary Care Provider [id number] MD Arleth Roach Admit Provider MD Arleth Roach Attending Provider [phone] Yaquelin Perez MD Primary Care Provider [phone] Tyler Roach Attending Unavailab Tyler Martinez Admitting [...] Unavailable Primary Care Provider Unavailabl e Melissa Riveraal Attending Unavaila ble Sarmini, Melissa Talavera Attending Unavaila ble Sarmini, Melissa Talal Referring Unavaila ble Yolandaminpriyank, Melissa Talal Attending Unavaila ble Sarmini, Torres Talal Admitting Unavaila ble Sarmini, Torres Talal Attending Unavaila ble Sarmini, Melissa Talal Attending Unavaila YOLANDE Deutsch Attending Unavailable LOLI PACHECO Attending Unavailable Allergies Allergy Classification Reported Allergen(s) Allergy Type Date of Onset Reaction(s) Facility (9 sources) benzonatate; Translations: [benzonatate] Drug Allergy 5 Eruption of skin (disorder), Swelling (finding), Swelling (morphologic abnormality) [facility] (2 sources) benzonatate; Translations: [Di Crespo] Drug Allergy [facility] Repository Medications Current Medications Medication Drug Class(es) [...] / thiamine 0.0333 mg/ml / vitamin b12 0.252762 mg/ml / zinc sulfate 0.333 mg/ml oral [...] Recovery (only) lamoTRIgine 25 mg oral tablet (14 sources) Mood Stabilizer, Anti-epileptic Agent Start: 09-10-2023 End: 01-12-2025 take 2 tablets by mouth once daily [...] PO Daily 15 August 31, 2022 12:00am meclizine hydrochloride 25 mg oral tablet (1 source) Antiemetic take 1 tablet by mouth once daily as needed for dizziness Meclizine HCl 25 MG TAKE 1 TABLET DAILY NEEDED FOR DIZZINESS ORALLY Oral for 30 Active 24 hr mesalamine 375 mg extended release oral capsule (17 sources) Aminosalicylate Start: 02-01-2024 take 4 capsules by mouth once daily in the morning Apriso 0.375 g oral capsule, extended release 1.5 gm = 4 cap(s), Oral, qAM, # 120 cap(s), Refills(s) 6, Pharmacy: [facility] #[facility], 166, cm, 09/25/23 14:32:00 EDT, Height/Length Dosing, 79, kg, 09/25/23 14:32:00 EDT, Weight Dosing Start Date: 02/01/24 Status: Ordered Quantity: 120.0 Unit: cap(s) Repeat number: 7 Start: 08-28-2022 take 1 capsule by [facility] once daily in the morning Mesalamine (Apriso) 0.375 gram capsule,extended release 24hr Active 0.375 GM PO Every morning August 28, 2022 12:00am Start: 07-06-2022 End: 09-29-2023 take 4 capsules by mouth once daily in the morning Apriso 0.375 g oral capsule, extended release 1.5 gm = 4 cap(s), Oral, qAM, X 90 day(s), # 360 cap(s), Refills(s) 4, Pharmacy: [id number], 166, cm, 07/06/22 13:48:00 EST, Height/Length Dosing, 98.7, kg, 07/06/22 13:48:00 EST, Weight Dosing Start Date: 07/06/22 Stop Date: 09/29/23 Status: Ordered End: 01-12-2025 take 1 capsule by mouth once daily mesalamine ER (Apriso) 0.375 g 24 hr capsule Take 1.5 g by mouth Daily 01/12/2025 Discontinued mesalamine ER (A priso) 0.375 gram 24 hr capsule Active 5 ml midazolam 1 mg/ml injection [...] 1 (one) time per week in the flame gouger.. Active riboflavin, selam min B2, (VITAMIN B-2 ORAL) Take by mouth 1 (one) time per week in the flame gouger.. Suspended traZODone hydrochloride 50 mg oral tablet (16 sources) Serotonin Reuptake Inhibitor Start: 08-31-2022 End: 01-12-2025 traZODONE 50 mg Tab Refills(s) 0 Start Date: 07/11/23 Status: Ordered Repeat number: 1 Trelegy Ellipta 200 mcg-62.5 mcg-25 mcg/inh inhalation powder (3 sources) Start: 09-24-2024 take 1 puff(s) by inhalation once daily Trelegy Ellipta 200 mcg-62.5 mcg-25 mcg/inh inhalation powder 1 puff(s), Inhalation, Daily, Refill(s) 0 Start Date: 09/24/24 Status: Ordered Repeat number: 1 Dsngxwy-Ulgm-Vutkt -Oreg-Capryl (1 source) Start: 08-28-2022 take 1 capsule by mouth once daily Yoeoxbu-Hahz-Vf jbo-Yfzn-Iblxdv Active 1 CAP PO Daily August 28, [...] venlafaxine 75 mg extended release oral capsule (17 sources) Serotonin and Norepinephrine Reuptake Inhibitor Start: 07-11-2023 venlafaxine 75 mg Cap-ER Refills(s) 0 Start Date: 07/11/23 Status: Ordered Repeat number: 1 Start: 08-31-2022 take 37.5 mg by mout h once daily Venlafaxine Active 37.5 MG PO Daily 15 August 31, 2022 12:00am End: 01-12-2025 take 1 capsule by mouth every twenty-four hours in the morning venlafaxine XR (Effexor XR) 75 MG 24 hr capsule Take 75 mg by mouth in the morning. 01/12/2025 Discontinued Ventolin HFA 90 mcg/inh Aerosol (8 sources) [...] follow instructions per packaging and physician's handout, [id number], 166, cm, 09/24/24 8:26:00 EDT, Height/Length [...] Dr. Booker. Colonoscopy ordered by Dr. Booker., [id number], 166, cm, 06/13/21 8:20:00 EST, Height/Length Dosing, 110.5, kg, 06/13/21 8:20:00 EST, Weight Dosing Start Date: 06/13/21 Status: Ordered Start: 06-13-2021 take 1 tablet by mouth once Lundy tab oral tablet See Instructions, 24 tab(s), Refill(s) 0, Please follow instructions per packaging and physician's handout. Prior to colonoscopy as instructed by Dr. Booker. Colonoscopy ordered by Dr. Booker., [id number], 166, cm, 06/13/21 8:20:00 EST, Heigh... [...] months, # 26 cap(s), Refills(s) 0, Pharmacy: [facility] #[id number], 166, cm, 07/11/23 8:09:00 EST, Height/Length Dosing, 82.6, kg, 07/11/23 8:09:00 EST, Weight Dosing Start Date: 07/16/23 Stop Date: 01/12/24 Status: Ordered Problems Active Problems Problem Classification Problem Date Documented Da te Episodic/Chronic Abdominal pain (1 source) Pain in female pelvis; Translations: [Pelvic and perineal pain] 01-12-2025 Episodic Anal and rectal conditions (2 sources) Rectal [...] disorder, not elsewhere classified] Onset: 02-28-2008 Chronic Nonmalignant breast conditions (1 source) Mastodynia; Translations: [Mastodynia] 01-12-2025 Episodic Nonspecific chest pain (2 sources) Other chest pain; Translations: [Other chest pain] Onset: 10-20-2024 Episodic Other aftercare (1 source) 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; Translations: [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] Onset: 08-30-2022 Episodic Other [...] mass index 30+ - obesity 06-26-2019 Chronic Other screening for suspected conditions (not mental disorders or infectious disease) (11 sources) Encounter for screening mammogram for malignant neoplasm of breast; Translations: [Encounter for screening for malignant neoplasm of cervix] Onset: 01-24-2022 Episodic Regional enteritis and ulcerative colitis (20 sources) [...] [Unspecified myalgia and myositis] Onset: 02-28-2008 Episodic Residual codes; unclassified (1 source) Insomnia; [...] Test Name Value Interpretation Reference Range Facility MM TOMOSYNTHESIS SCREENING B Ion 01-09-2025 [place] [address] Mammography Report Signed Patient: RAMY MARTINEZ MR#: [id number] : 1980 Acct:[id number] Age/Sex: 44 / F ADM Date: 01/09/25 Loc: MAMMO Attending Dr: Sherri Reynolds Ordering Physician: Sherri Reynolds Results: Date of Service: 01/09/25 Follow Up: Procedure(s): MM tomosynthesis screening BI Accession Number(s): [id number] cc: Sherri Reynolds; Yaquelin Perez M.D. Patient Name: RAMY MARTINEZ MR#: [id number] : 1980 Exam Date: 01/09/2025 Ordering Doctor: CHAYA REYNOLDS . RADIOLOGY REPORT PROCEDURE: MM TOMOSYNTHESIS SCREENING BI COMPARISON: MM TOMOSYNTHESIS SCREENING BI, 01/08/2024. MG MAMM SCREEN 3D FAISAL CAD, 02/01/2022. INDICATIONS: Screening Calculator Name NCI Breast Cancer Risk Assessment Tool 5 Year Breast Cancer Risk 0.60% Lifetime Breast Cancer Risk 7.10% Personal Breast Cancer No Personal Ovarian Cancer No Treatments None Family Cancers Mother with lung/brain cancer at age 57; Grandmother-maternal with uterine cancer at age 40. LOCATION: [facility] BREAST COMPOSITION: The breasts are heterogeneously dense, which may obscure small masses. FINDINGS: RIGHT BREAST: No significant suspicious finding. There are similar focal asymmetries paired benign-appearing lymph nodes are noted along the chest wall. LEFT BREAST: No significant suspicious finding. Benign-appearing lymph nodes are present. DIAGNOSTIC CATEGORY 2--BENIGN FINDING. NO CHANGE FROM COMPARISON. RECOMMENDATIONS: ROUTINE MAMMOGRAM AND CLINICAL EVALUATION IN 12 MONTHS. Dictated by: Christian Hahn MD on 01/09/2025 at 13:16 Approved by: Christian Hahn MD on 01/09/2025 at 13:20 Dictated By: Christian Hahn M.D. Signed By: 01/09/25 1321 DD/ 1320 TD/TT: Transition Of Care Specialist: [facility] Radiology, Radiologist, - 01/09/2025 [place] [address] Mammography Report Signed Patient: RAMY MARTINEZ MR#: [id number] : 1980 Acct:[id number] Age/Sex: 44 / F ADM Date: 01/09/25 Loc: MAMMO Attending Dr: Sherri Reynolds Ordering Physician: Sherri Reynolds Results: Date of Service: 01/09/25 Follow Up: Procedure(s): MM tomosynthesis screening BI Accession Number(s): [id number] cc: Sherri Reynolds; Yaquelin Perez M.D. Patient Name: RAMY MARTINEZ MR#: [id number] : 1980 Exam Date: 01/09/2025 Ordering Doctor: CHAYA REYNOLDS . RADIOLOGY REPORT PROCEDURE: MM TOMOSYNTHESIS SCREENING BI COMPARISON: MM TOMOSYNTHESIS SCREENING BI, 01/08/2024. MG MAMM SCREEN 3D FAISAL CAD, 02/01/2022. INDICATIONS: Screening Calculator Name NCI Breast Cancer Risk Assessment Tool 5 Year Breast Cancer Risk 0.60% Lifetime Breast Cancer Risk 7.10% Personal Breast Cancer No Personal Ovarian Cancer No Treatments None Family Cancers Mother with lung/brain cancer at age 57; Grandmother-maternal with uterine cancer at age 40. LOCATION: [facility] BREAST COMPOSITION: The breasts are heterogeneously dense, which may obscure small masses. FINDINGS: RIGHT BREAST: No significant suspicious finding. There are similar focal asymmetries paired benign-appearing lymph nodes are noted along the chest wall. LEFT BREAST: No significant suspicious finding. Benign-appearing lymph nodes are present. DIAGNOSTIC CATEGORY 2--BENIGN FINDING. NO CHANGE FROM COMPARISON. RECOMMENDATIONS: ROUTINE MAMMOGRAM AND CLINICAL EVALUATION IN 12 MONTHS. Dictated by: Christian Hahn MD on 01/09/2025 at 13:16 Approved by: Christian Hahn MD on 01/09/2025 at 13:20 Dictated By: Christian Hahn M.D. Signed By: 01/09/25 1321 DD/ 1320 TD/TT: Transition Of Care Specialist: [facility] Radiology Study observation (narrative) [facility] MM TOMOSYNTHESIS SCREENING B IOrdered By: Radiologist Radiology on 01-09-2025 [facility] Work Phone: Office Visiton 12-29-2024 Follow-up visit [id number] Yonas Martinez 1980 F Date Provider Department Center 12/29/2024 [id number], ADAM CARD [facility] Family History Problem Relation Age of Onset Lung cancer Mother Hypertension Father Stroke Paternal Grandmother Coronary artery disease Paternal Grandmother Family Status - Relation Status Age at Mother Father Alive Paternal Grandmother Level of Service:19523 DC OFFICE/OUTPATIENT ESTABLISHED MOD MDM 30 MIN Normal [facility] Orders Onlyon 12-03-2024 Orders Only [id number] Yonas Martinez 1980 Date Provider Department Center 12/03/2024 [id number], HISTORICAL CARD [facility] Family History Problem Relation Age of Onset Lung cancer Mother Hypertension Father Stroke Paternal Grandmother Coronary artery disease Paternal Grandmother Family Status - Relation Status Age at Mother Father Alive Paternal Grandmother Normal [facility] Gastroenterology Office/Clin ic Noteon 11-06-2024 Gastroenterology [...] With When Contact Information Miguel HAQUE, Melissa Talavera, ABDIAS, MED In 1 year [address], [address] [phone]- [phone] Additional Instructions: Problem List/Past Medical History Ongoing [...] (more content not included)... Normal [facility] Comment on above: Result Comment: Elec tronically Signed By: Miguel HAQUE, Melissa Talavera\.br\Date and Time Signed: 11/06/24 09:41 EDT\.br\Electronically Co-Signed By: Monty MA, Pamela L\.br\Date and Time Co-Signed: 11/05/24 08:46 EDT Ambulatory Visit Summaryon 0 11-05-2024 Ambulatory Visit Summary Ambulatory Visit Summary RAMY MARTINEZ :1980 Visit Date:11/05/2024 Ambulatory Visit Instructions Your [...] AM EDT With: Melissa Rivera MD Where: [facility] [address] [address]- You Need to Schedule the Following Appointments Follow Up with Miguel HAQUE, Melissa Talavera, GAS, MED When: In 1 year Where: [address], [address] [address]- [phone] Medications What How Much When Instructions Unchanged [...] signed up for this yet, please contact [employer] Information Management at [phone] to get signed up today. Language Information Language assistance services are available as needed. Fe [facility] Reminderson 10-21-2024 Reminders Reminders From: Penny Saldivar MA To: [facility] - Reminders/Recalls; Sent: 10/21/2024 11:48:28 EDT Show up: 09/04/2025 11:48:00 EDT Subject: colon recall Due Date/Time: 10/07/2025 11:48:00 EDT Reminder/Recall [address] Rivera 10/07/24 Normal [facility] Office Visiton 10-20-2024 Follow-up visit [id number] Yonas Martinez Jacqueline 1980 F Date Provider Department Center 10/20/2024 [facility]YOLANDE [facility] Family History Problem Relation Age of Onset Lung cancer Mother Hypertension Father Stroke Paternal Grandmother Coronary artery disease Paternal Grandmother Family Status - Relation Status Age at Mother Father Alive Paternal Grandmother Level of Service:48299 DC OFFICE/OP CONSLTJ NEW/EST PT MOD MDM 40 MINUTES Normal [facility] Surgical Pathology Reporton 10-10-2024 Surgical Pathology Report [facility] [address] [facility] [place] [address]- Surgical Pathology Report Collected Date/Time: 10/07/2024 10:33 EDT Pathologist: Myke Nieto MD Date/Time: 10/07/2024 18:00 EDT Miguel HAQUE, Melissa [...] MD Received Date/Time: 10/07/2024 18:00 EDT Miguel HAQEU, Melissa Rivera MD, Melissa Talavera Gross Description [...] dimension, totally submitted in one cassette. () [facility] Microscopic Description Microscopic examination performed unless gross only specified. Quality was accessed and acceptable. This report was transcribed using voice recognition technology and might contain unintended computerized nail cutter errors. Normal [facility] Comment on above: Performed By: #### 4 [id number] #### [address] [address] Ambulatory Visit Summaryon 0 09-24-2024 Ambulatory Visit Summary Ambulatory Visit Summary JUAN RAMY Phillips :1980 Visit Date:09/24/2024 Ambulatory Visit Instructions Your Diagnosis Chronic pancolonic ulcerative colitis Constipation Joint ache Your Care Team Attending Physician - Melissa [...] you for choosing us for your care. Normal [facility] Gastroenterology Office/Clin ic Noteon 09-24-2024 [...] Rectal prolapse) referral placed to colorectal at [facility] Colonoscopy 09/10/23: Impression and Plan 1. [...] (more content not included)... Normal [facility] Comment on above: Result Comment: Elec [...] Source.............Cervix;Endocervix No. of containers..01 ThinPrep Vial Age Eyal BEARDEN Amirah... FLAG LEGEND: L-Low Normal,H-High Normal,LL-Alert Low,HH-Alert High <-Panic Low,>-Panic High,A-Abnormal,AA-Critical Abnormal Performed at: 01 =[address] [address] Zainab Mckeon MD, HPV APTIMA Negative Negative [facility] Comment on above: This nucleic acid am plification test detects fourteen high- risk HPV types (16,18,31,33,35,39,45,51,52,56,58,59,66,68) without differentiation. Performed at: =[address] [id number] [place] Steward/Stewardess: Zainab Mckeon MD, Phone: [phone] Performed at: [address] [id number] [place] Steward/Stewardess: Zainab Mckeon MD, Phone: [phone] IGP, APTIMA HPV, RFX 16/18,45 Note . [facility] Comment on above: TESTS RESULT FLAG UN ITS REF RANGE LAB DIAGNOSIS: 02 NEGATIVE FOR INTRAEPITHELIAL LESION OR MALIGNANCY. Specimen adequacy: 02 Satisfactory for evaluation. No endocervical component is identified. Performed by: 02 Pamela Cabrera Traffic Circuit Engineer (ASCP) . 02 Note: Note 02 [...] <-Panic Low,>-Panic High,A-Abnormal,AA-Critical Abnormal Performed at: [address] [address] Zainab Mckeon MD, BRUSH-SPATULA CERVIX ENDOCERVIX [facility] The New Daily Glucose Test strip manual (B ld) [Mass/Vol]on 12-24-2023 Glucose [Mass/Vol] 99 mg/dL 74 - 99 mg/dL [facility] Interpretation and review of laboratory results Normal [facility] Glucose [Mass/Vol] 99 mg/dL Normal 74-99 [facility] Comment on above: Performed By: #### 2 341-6 #### SABRINA GERMAN ([id number]) [facility] ([facility]) [address] [place] [address] HCG ( test) IA.rapi d Ql (U)Ordered By: Josseline Spring on 12-24-2023 HCG ( test) Ql (U) Negative NEGATIVE [facility] Interpretation and review of laboratory results Normal [facility] HCG ( test) IA.rapi d Ql (U)on 12-24-2023 HCG ( test) Ql (U) Negative Normal NEGATIVE [facility] Comment on above: Performed By: #### 8 0384-1 #### SABRINA GERMAN ([id number]) [facility] ([facility]) [address] [place] [address] Basic metabolic 2000 panelon 12-13-2023 Anion gap [Moles/Vol] 12 mmol/L Normal 10-20 [facility] Comment on above: Performed By: #### 3 084-1 #### KADE Sandra ([id number]) [facility] ([facility]) [address] [place] [address] Calcium [Mass/Vol] 10.2 mg/dL Normal 8.6-10.3 [facility] Comment on above: Performed By: #### 3 084-1 #### KADE LORENZ L ([id number]) [facility] ([facility]) [address] [place] [address] Chloride [Moles/Vol] 104 mmol/L Normal 98-107 [facility] Comment on above: Performed By: #### 3 084-1 #### KADE LORENZ L ([id number]) [facility] ([facility]) [id number] [place] [address] CO2 [Moles/Vol] 30 mmol/L Normal 21-32 [facility] Comment on above: Performed By: #### 3 084-1 #### KADE LORENZ L ([id number]) [facility] ([facility]) [address] [place] [address] Creatinine [Mass/Vol] 0.66 mg/dL Normal 0.50-1.05 [facility] Comment on above: Performed By: #### 3 084-1 #### KADE LORENZ L ([id number]) [facility] ([facility]) [address] [place] [address] GFR/1.73 sq M.predicted MDRD (S/P/Bld) [Vol rate/Area] mL/min/{1.73_m2} Normal >60 [facility] Comment on above: Result Comment: Calc ulations of estimated GFR are performed using the 2020 CKD-EPI Study Refit equation without the race variable for the IDMS-Traceable creatinine methods. https://jasn.asnjournals.org/content/early//ASN.12198 46188 Performed By: #### 3 084-1 #### KADE LORENZ L ([id number]) [facility] ([facility]) [address] [place] [address] Glucose [Mass/Vol] 117 mg/dL High 74-99 [facility] Comment on above: Performed By: #### 3 084-1 #### KADE LORENZ L ([id number]) [facility] ([facility]) [id number] [place] [address] Potassium [Moles/Vol] 4.9 mmol/L Normal 3.5-5.3 [facility] Comment on above: Performed By: #### 3 084-1 #### KADE BOURNEMOTZER L ([id number]) [facility] ([facility]) [id number] [place] [address] Sodium [Moles/Vol] 141 mmol/L Normal 136-145 [facility] Comment on above: Performed By: #### 3 084-1 #### KADE BOURNEMOTZER L ([id number]) [facility] ([facility]) [address] [place] [address] Urea nitrogen [Mass/Vol] 7 mg/dL Normal 6-23 [facility] Comment on above: Performed By: #### 3 084-1 #### KADE BOURNEMOTZER L ([id number]) [facility] ([facility]) [id number] [place] [address] Beta 2 glycoprotein 1 Ab IgA and IgG and IgM panel (S)on 11-28-2023 Beta 2 glycoprotein 1 IgA Qn (S) 34.2 U/mL High <20.0 [facility] Comment on above: Result Comment: [...] By: #### 3 084-1 #### KADE Sandra ([id number]) [facility] ([facility]) [id number] [place] [address] Beta 2 glycoprotein 1 IgG Qn (S) 2.6 U/mL Normal <20.0 [facility] Comment on above: Result Comment: Elev ated levels of IgG anti-Beta 2 Glycoprotein-I on 2 occasions at least 12 weeks apart are laboratory criteria for anti-phospholipid syndrome according to an international consensus (J Thromb Haemost 2006 4:295). Performed By: #### 3 084-1 #### KADE Sandra ([id number]) [facility] ([facility]) [id number] [place] [address] Beta 2 glycoprotein 1 IgM Qn (S) 27.5 U/mL High <20.0 [facility] Comment on above: Result Comment: [...] By: #### 3 084-1 #### KADE Sandra ([id number]) [facility] ([facility]) [address] [place] [address] C reactive proteinon 024 CRP [Mass/Vol] mg/L Normal <1.00 [facility] Comment on above: Performed By: #### 1 988-5 #### KADE Sandra ([id number]) [facility] ([facility]) [address] [place] [address] Calcidiolon 11-28-2023 25-hydroxyvitamin D3 [Mass/Vol] 65 ng/mL Normal 30-100 [facility] Comment on above: Order Comment: Defic iency: < 20 ng/ml Insufficiency: 20-29 ng/ml Sufficiency: 30-100 ng/ml This assay accurately quantifies the sum of Vitamin D3, 25-Hydroxy and Vitamin D2,25-Hydroxy. Performed By: #### 1 989-3 #### KADE Sandra ([id number]) [facility] ([facility]) [address] [place] [address] Cardiolipin Ab IA Qn (S)on 0 11-28-2023 Cardiolipin IgA Qn 39.0 APL U/mL High <20.0 [facility] Comment on above: Result Comment: Elev ated levels of IgA anti-cardiolipin have not been included in the laboratory criteria for anti-phospholipid syndrome according to an international consensus (J Thromb Haemost 2006 4:295). It may be helpful in identifying subgroups of patients at risk for specific clinical manifestations of anti-phospholipid syndrome. Performed By: #### 3 180-7 #### KADE Sandra ([id number]) [facility] ([facility]) [address] [place] [address] Cardiolipin IgG IA Qn (S) 2.4 GPL U/mL Normal <20.0 [facility] Comment on above: Result Comment: Elev ated levels of IgG anti-cardiolipin on 2 occasions at least 12 weeks apart are laboratory criteria for anti-phospholipid syndrome according to an international consensus (J Thromb Haemost 2006 4:295). Performed By: #### 3 180-7 #### KADE Sandra ([id number]) [facility] ([facility]) [id number] [place] [address] 14767 Cardiolipin IgM IA Qn (S) 27.7 MPL U/mL High <20.0 [facility] Comment on above: Result Comment: [...] By: #### 3 180-7 #### KADE Sandra ([id number]) [facility] ([facility]) [address] [place] [address] 62196 Complement C3on 11-28-2023 Complement C3 [Mass/Vol] 101 mg/dL Normal 87-200 [facility] Comment on above: Performed By: #### 4 485-9 #### KADE Sandra ([id number]) [facility] ([facility]) [address] [place] [address] 84570 Complement C4on 11-28-2023 Complement C4 [Mass/Vol] 14 mg/dL Normal 10-50 [facility] Comment on above: Performed By: #### 4 498-2 #### KADE Sandra ([id number]) [facility] ([facility]) [address] [place] [address] 89139 Cyclic citrullinated peptide Ab.IgGon 11-28-2023 Cyclic citrullinated peptide IgG Qn <1 Normal <3 [facility] Comment on above: Order Comment: THE T [...] By: #### 3 3935-8 #### KADE Sandra ([id number]) [facility] ([facility]) [address] [place] [address] 74820 ESR Westergren method (Bld) [Velocity]on 11-28-2023 ESR (Bld) [Velocity] mm/h Normal 0-20 [facility] Comment on above: Performed By: #### 4 537-7 #### KADE Sandra ([id number]) [facility] ([facility]) [address] [place] [address] 15994 Extractable nuclear Ab panel (S)on 11-28-2023 Centromere protein B Ab Qn (S) <0.2 Normal <1.0 [facility] Comment on above: Result Comment: < 1. 0 = NEGATIVE >=1.0 = POSITIVE Performed By: #### 3 084-1 #### KADE Sandra ([id number]) [facility] ([facility]) [address] [place] [address] 08756 Chromatin Ab Qn <0.2 Normal <1.0 [facility] Comment on above: Result Comment: < 1. 0 = NEGATIVE >=1.0 = POSITIVE Performed By: #### 3 084-1 #### KADE Sandra ([id number]) [facility] ([facility]) [address] [place] [address] 64966 DNA double strand Ab Qn (S) 1.0 [IU]/mL Normal <5.0 [facility] Comment on above: Result Comment: NEGA TIVE: <= 4 IU/ML EQUIVOCAL: 5- 9 IU/ML POSITIVE: >=10 IU/ML Performed By: #### 3 084-1 #### KADE Sandra ([id number]) [facility] ([facility]) [address] [place] [address] 05085 Meryl-1 extractable nuclear Ab IA Ql (S) <0.2 Normal <1.0 [facility] Comment on above: Result Comment: < 1. 0 = NEGATIVE >=1.0 = POSITIVE Performed By: #### 3 084-1 #### KADE Sandra ([id number]) [facility] ([facility]) [address] [place] [address] 59851 Ribonucleoprotein extractable nuclear Ab IA Qn (S) 0.6 AI Normal <1.0 [facility] Comment on above: Result Comment: < 1. 0 = NEGATIVE >=1.0 = POSITIVE Performed By: #### 3 084-1 #### KADE Sandra ([id number]) [facility] ([facility]) [address] [place] [address] 43399 Ribosomal P Ab Qn (S) <0.2 Normal <1.0 [facility] Comment on above: Result Comment: < 1. 0 = NEGATIVE >=1.0 = POSITIVE Performed By: #### 3 084-1 #### KADE Sandra ([id number]) [facility] ([facility]) [address] [place] [address] 59215 SCL-70 extractable nuclear Ab IA Ql (S) <0.2 Normal <1.0 [facility] Comment on above: Result Comment: < 1. 0 = NEGATIVE >=1.0 = POSITIVE Performed By: #### 3 084-1 #### KADE Sandra ([id number]) [facility] ([facility]) [address] [place] [address] 74108 Sjogrens syndrome-A extractable nuclear Ab IA Qn (S) <0.2 Normal <1.0 [facility] Comment on above: Result Comment: < 1. 0 = NEGATIVE >=1.0 = POSITIVE Performed By: #### 3 084-1 #### KADE Sandra ([id number]) [facility] ([facility]) [address] [place] [address] 19512 Sjogrens syndrome-B extractable nuclear Ab IA Qn (S) <0.2 Normal <1.0 [facility] Comment on above: Result Comment: < 1. 0 = NEGATIVE >=1.0 = POSITIVE Performed By: #### 3 084-1 #### KADE Sandra ([id number]) [facility] ([facility]) [address] [place] [address] 70902 Dias extractable nuclear Ab IA Qn (S) <0.2 Normal <1.0 [facility] Comment on above: Result Comment: < 1. 0 = NEGATIVE >=1.0 = POSITIVE Performed By: #### 3 084-1 #### KADE Sandra ([id number]) [facility] ([facility]) [address] [place] [address] 51565 Dias extractable nuclear Ab+Ribonucleoprotein extractable nuclear Ab IA Ql (S) <0.2 Normal <1.0 [facility] Comment on above: Result Comment: < 1. 0 = NEGATIVE >=1.0 = POSITIVE Performed By: #### 3 084-1 #### KADE Sandra ([id number]) [facility] ([facility]) [address] [place] [address] 02450 Nuclear Abon 11-28-2023 Nuclear Ab Hep2 substrate Ql (S) Negative Normal Negative [facility] Comment on above: Result Comment: The Antinuclear Antibody (JERZY) test was performed using indirect immunofluorescence assay with HEp-2 cells slide. Performed By: #### 3 084-1 #### KADE Sandra ([id number]) [facility] ([facility]) [address] [place] [address] 29874 Proteinon 11-28-2023 Protein [Mass/Vol] 6.8 g/dL Normal 6.4-8.2 [facility] Comment on above: Performed By: #### 2 885-2 #### KADE Sandra ([id number]) [facility] ([facility]) [address] [place] [address] 03114 Rheumatoid factoron 11-28-19 24 Rheumatoid factor Nephelometry Qn (S) <10 Normal 0-15 [facility] Comment on above: Performed By: #### 1 5205-8 #### KADE Sandra ([id number]) [facility] ([facility]) [address] [place] [address] 06573 SERUM PROTEIN ELECTROPHORESI S + IMMUNOFIXATIONon 11-28-2023 Albumin [Mass/Vol] 4.4 g/dL Normal 3.4-5.0 [facility] Comment on above: Performed By: #### 3 084-1 #### KADE Sandra ([id number]) [facility] ([facility]) [address] [place] [address] 54464 ALPHA 1 GLOBULIN 0.3 g/dL Normal 0.2-0.6 [facility] Comment on above: Performed By: #### 3 084-1 #### KADE Sandra ([id number]) [facility] ([facility]) [address] [place] [address] 89024 ALPHA 2 GLOBULIN 0.5 g/dL Normal 0.4-1.1 [facility] Comment on above: Performed By: #### 3 084-1 #### KADE LORENZ L ([id number]) [facility] ([facility]) [address] [place] [address] 79913 BETA GLOBULIN 0.6 g/dL Normal 0.5-1.2 [facility] Comment on above: Performed By: #### 3 084-1 #### KADE Sandra ([id number]) [facility] ([facility]) [address] [place] [address] 24309 GAMMA GLOBULIN 1.0 g/dL Normal 0.5-1.4 [facility] Comment on above: Performed By: #### 3 084-1 #### KADE Sandra ([id number]) [facility] ([facility]) [address] [place] [address] 16464 IMMUNOFIXATION COMMENT Detected Normal [facility] Comment on above: Performed By: #### 3 084-1 #### KADE Sandra ([id number]) [facility] ([facility]) [address] [place] [address] 91182 PATH REVIEW - SERUM IMMUNOFIXATION SEE COMMENT [facility] Comment on above: Result Comment: Revi ewed and approved by ALICE MORALES on 12/03/23 at 8:41 PM. Performed By: #### 3 084-1 #### KADE Sandra ([id number]) [facility] ([facility]) [address] [place] [address] 47907 PATH REVIEW-SERUM PROTEIN ELECTROPHORESIS SEE COMMENT [facility] Comment on above: Result Comment: Revi ewed and approved by ALICE MORALES on 12/03/23 at 8:41 PM. Performed By: #### 3 084-1 #### KADE Sandra ([id number]) [facility] ([facility]) [address] [place] [address] PROTEIN ELECTROPHORESIS COMMENT Normal. [facility] Comment on above: Performed By: #### 3 084-1 #### KADE Sandra ([id number]) [facility] ([facility]) [address] [place], [place] [id number] Urateon 11-28-2023 Urate [Mass/Vol] 1.8 mg/dL Low 2.3-6.7 [facility] Comment on above: Result Comment: Linda puncture immediately after or during the administration of Metamizole may lead to falsely low results. Testing should be performed immediately prior to Metamizole dosing. Performed By: #### 3 084-1 #### KADE Sandra ([id number]) [facility] ([facility]) [address] [place] [address] XR HAND 3+ VIEWS BILATERALon 11-28-2023 XR HAND 3+ VIEWS BILATERAL Interpreted By: Daniel Martins, STUDY: XR HAND 3+ VIEWS BILATERAL; ; 11/28/2023 3:12 pm INDICATION: Signs/Symptoms:r/o erosiosn or calcinosis. COMPARISON: None. ACCESSION NUMBER(S): [id number] ORDERING CLINICIAN: JOSEPH SORIANO FINDINGS: Bilateral hands, three views of each There is no fracture. There is no dislocation. There are no degenerative changes. There is no erosion or chondrocalcinosis. There is no soft tissue abnormality seen. IMPRESSION: Normal radiographs of the hands MACRO: None Signed by: Daniel Martins 11/29/2023 8:41 PM Dictation workstation: [id number] [facility] XR SACROILIAC JOINTS 3+ VIEW Son 11-28-2023 XR SACROILIAC JOINTS 3+ VIEWS Interpreted By: Daniel Martins, STUDY: XR SACROILIAC JOINTS 3+ VIEWS; ; 11/28/2023 3:12 pm INDICATION: Signs/Symptoms:r/o erosions or sacroilitis. COMPARISON: None. ACCESSION NUMBER(S): [id number] ORDERING CLINICIAN: JOSEPH SORIANO FINDINGS: SI joints, three views There is no sclerosis or erosions in the SI joints. No degenerative change seen. There is no fracture. There is no dislocation. There is no lytic or sclerotic lesion. There is no soft tissue abnormality seen. IMPRESSION: Normal radiographs of the sacroiliac joints MACRO: None Signed by: Daniel Martins 11/29/2023 8:41 PM Dictation workstation: [id number] [facility] Anoscopyon 10-09-2023 Denisse Chiang MD 10/09/2023 2:20 PM Anoscopy Date/Time: 10/09/2023 1:37 PM Performed by: Denisse Chiang MD Authorized by: Denisse Chiang MD Consent: Consent obtained: Verbal Consent given by: Patient Procedure details: Internal hemorrhoids: yes (Right and left posterior, large, non-bleeding and non-prolapsing on exam today) Post-procedure details: Procedure completion: Tolerated [facility] Work Phone: [facility] Work Phone: CHEMISTRYOrdered By: SYSTEM SYSTEM [...] on 08-29-2022 Cholesterol [Mass/Vol] 133 mg/dL 140-200 [facility] Comment on above: Chol less than 200 m g/dl low riskChol 201-239 mg/dl borderline riskChol 240 mg/dl and greater high risk Cholesterol in LDL Calc [Mas s/Vol]Ordered By: Tyler Roach on 08-29-2022 Cholesterol in LDL [Mass/Vol] 78 mg/dL 0-100 [facility] Comment on above: LDL ATP III CLASSIFI CATIONLDL less than 100 mg/dL OptimalLDL 100-129 mg/dL Near or above optimalLDL 130-159 mg/dL Borderline highLDL 160-189 mg/dL HighLDL greater than 189 mg/dL Very high Cholesterol in VLDL Calc [Ma ss/Vol]Ordered By: Tyler Roach on 08-29-2022 Cholesterol in VLDL [Mass/Vol] 12 mg/dL [facility] Serum or plasma high density lipoprotein (HDL) cholesterol measurementOrdered By: Tyler Roach on 08-29-2022 Cholesterol in HDL [Mass/Vol] 42 mg/dL 35-85 [facility] Comment on above: HDL CHOL ATP-III CLA SSIFICATION Cardiovascular RiskHDL > or equal to 60 mg/dL LOWHDL < 40 mg/dL HIGH Serum or plasma total choles terol/high density lipoprotein (HDL) cholesterol mass ratOrdered By: Tyler Roach on 08-29-2022 Cholesterol.total/Chol esterol in HDL [Mass ratio] 3.2 {ratio} <5.0 [facility] Thyrotropin [Units/volume] i n Serum or PlasmaOrdered By: Tyler Roach on 08-29-2022 TSH Qn 0.19 m[IU]/L 0.45-5.33 [facility] Thyroxine (T4) free [Mass/vo lume] in Serum or PlasmaOrdered By: Tyler Roach on 08-29-2022 Free T4 [Mass/Vol] 0.88 ng/dL 0.61-1.12 [facility] Triglyceride [Mass/volume] i n Serum or PlasmaOrdered By: Tyler Roach on 08-29-2022 Triglyceride [Mass/Vol] 63 mg/dL 0-149 [facility] Comment on above: TRIG ATP III CLASSIF ICATIONTRIG less than 150 mg/dL NormalTRIG 150-199 mg/dL Borderline highTRIG 200-500 mg/dL High TRIG greater than 500 mg/dL Very highStandard traceable to the Center for Disease Conrtrol and Prevention (CDC) test method. Vitamin D+Metabolites [Mass/ volume] in Serum or PlasmaOrdered By: Tyler Roach on 08-29-2022 Vitamin D+Metabolites [Mass/Vol] 16.0 ng/mL 30-100 [facility] Comment on above: VITAMIN D STATUS 25( [place])VITAMIN D RANGE (ng/mL) Deficient <20 Insufficient 20 to <30Sufficient 30 to 100Reference: John MF,Pasha NC, Benson LOYD, et al. Evaluation,treatment, and prevention of vitamin D deficiency; an Endocrine Society clinical practice guideline. JCEM. 2010; 96(7):1911-30. ACETAMINOPHENon 08-28-2022 Acetaminophen [Mass/Vol] ug/mL Critically low 10.0-30.0 [facility] Comment on above: Performed By: #### S ALYC, ACET #### [facility] [address] [address] [address] Deepak August AMYLASEon 08-28-2022 Amylase [Catalytic activity/Vol] 33 U/L Normal 25-115 [facility] Comment on above: Performed By: #### B MP, LIVER, LIPA, SHERRI #### [facility] [address] [place] [address] Dr. Deepak August CBC AUTO DIFFon 08-28-2022 BASO # 0.1 103/ul Normal 0.0-0.1 [facility] Comment on above: Performed By: #### B MP, LIVER, LIPA, SHERRI #### [facility] [address] [address] [address] Deepak August Basophils/100 WBC (Bld) 0.5 % Normal 0.2-2.0 [facility] Comment on above: Performed By: #### B MP, LIVER, LIPA, SHERRI #### [facility] [address] [address] [address] Deepak August EO # 0.1 103/ul Normal 0.0-0.7 [facility] Comment on above: Performed By: #### B MP, LIVER, LIPA, SHERRI #### [facility] [address] [place] [address] Dr. Deepak August Eosinophils/100 WBC (Bld) 1.1 % Normal 0.9-7.0 [facility] Comment on above: Performed By: #### B MP, LIVER, LIPA, SHERRI #### [facility] [address] [place] [address] Dr. Deepak August Erythrocyte distribution width (RBC) [Ratio] 13.3 % Normal 11.0-15.0 [facility] Comment on above: Performed By: #### B MP, LIVER, LIPA, SHERRI #### [facility] [address] [place] [address] Dr. Deepak August Hematocrit (Bld) [Volume fraction] 43.5 % Normal 36.0-48.0 [facility] Comment on above: Performed By: #### B MP, LIVER, LIPA, SHERRI #### [facility] [address] [place] [address] Dr. Deepak August Hemoglobin (Bld) [Mass/Vol] 14.7 g/dL Normal 12.0-16.0 [facility] Comment on above: Performed By: #### B MP, LIVER, LIPA, SHERRI #### [facility] [address] [place] [address] Dr. Deepak August IG # 0.04 10e3/ul Critically high 0.00-0.03 [facility] Comment on above: Performed By: #### B MP, LIVER, LIPA, SHERRI #### [facility] [address] [place] [address] Dr. Deepak August IG % 0.3 % Normal 0.0-0.5 [facility] Comment on above: Performed By: #### B MP, LIVER, LIPA, SHERRI #### [facility] [address] [place] [address] Dr. Deepak August LYMPH # 1.4 103/ul Normal 1.2-3.8 [facility] Comment on above: Performed By: #### B MP, LIVER, LIPA, SHERRI #### [facility] [address] [place] [address] Dr. Deepak August Lymphocytes/100 WBC (Bld) 11.2 % Critically low 20.5-60.0 [facility] Comment on above: Performed By: #### B MP, LIVER, LIPA, SHERRI #### [facility] [address] [place] [address] Dr. Deepak August MANUAL DIFF REQ NO Normal [facility] Comment on above: Performed By: #### B MP, LIVER, LIPA, SHERRI #### [facility] [address] [place] [address] Dr. Deepak August MCH (RBC) [Entitic mass] 29.5 pg Normal 26.7-34.0 [facility] Comment on above: Performed By: #### B MP, LIVER, LIPA, SHERRI #### [facility] [address] [place] [address] Dr. Deepak August MCHC (RBC) [Mass/Vol] 33.8 g/dL Normal 29.9-35.2 [facility] Comment on above: Performed By: #### B MP, LIVER, LIPA, SHERRI #### [facility] [address] [place] [address] Dr. Deepak August MCV (RBC) [Entitic vol] 87.2 fL Normal 81.0-99.0 [facility] Comment on above: Performed By: #### B MP, LIVER, LIPA, SHERRI #### [facility] [address] [place] [address] Dr. Deepak August MONO # 0.7 103/ul Normal 0.3-0.8 [facility] Comment on above: Performed By: #### B MP, LIVER, LIPA, SHERRI #### [facility] [address] [place] [address] Dr. Deepak August Monocytes/100 WBC (Bld) 5.8 % Normal 1.7-12.0 [facility] Comment on above: Performed By: #### B MP, LIVER, LIPA, SHERRI #### [facility] [address] [place] [address] Dr. Deepak August NEUT # 10.0 103/ul Critically high 1.4-6.[address] [facility] Comment on above: Performed By: #### B MP, LIVER, LIPA, SHERRI #### [facility] [address] [address] [address] Deepak August Neutrophils/100 WBC (Bld) 81.1 % Critically high 43.0-75.0 [facility] Comment on above: Performed By: #### B MP, LIVER, LIPA, SHERRI #### [facility] [address] [place] [address] Dr. Deepak August Platelet mean volume (Bld) [Entitic vol] 10.1 fL Normal 9.5-13.5 [facility] Comment on above: Performed By: #### B MP, LIVER, LIPA, SHERRI #### [facility] [address] [place] [address] Dr. Deepak August PLT 390 103/ul Normal 150-450 [facility] Comment on above: Performed By: #### B MP, LIVER, LIPA, SHERRI #### [facility] [address] [place] [address] Dr. Deepak August RBC 4.99 106/ul Normal 4.20-5.40 [facility] Comment on above: Performed By: #### B MP, LIVER, LIPA, SHERRI #### [facility] [address] [place] [address] Dr. Deepak August WBC 12.4 103/ul Critically high 4.0-11.[address] [facility] Comment on above: Performed By: #### B MP, LIVER, LIPA, SHERRI #### [facility] [address] [place] [address] Dr. Deepak August DRUG SCREEN RAPID (URINE)on 08-28-2022 AMP Negative Normal NEGATIVE [facility] Comment on above: Performed By: #### B MP, LIVER, LIPA, SHERRI #### [facility] [address] [place] [address] Dr. Deepak August BAR Negative Normal NEGATIVE [facility] Comment on above: Performed By: #### B MP, LIVER, LIPA, SHERRI #### [facility] [address] [address] [address] Deepak August BUP Negative Normal NEGATIVE [facility] Comment on above: Performed By: #### B MP, LIVER, LIPA, SHERRI #### [facility] [address] [address] [address] Deepak August BZO Negative Normal NEGATIVE [facility] Comment on above: Performed By: #### B MP, LIVER, LIPA, SHERRI #### [facility] [address] [address] [address] Deepak August VERA Negative Normal NEGATIVE [facility] Comment on above: Performed By: #### B MP, LIVER, LIPA, SHERRI #### [facility] [address] [address] [address] Deepak August CUT-OFFS SEE BELOW Normal [facility] Comment on above: Result Comment: AMP (Amphetamine): [...] #### B MP, LIVER, LIPA, SHERRI #### [facility] [address] [address] [address] Deepak August DRUG CUT HEADER DRUG CLASS TEST SYST EM CUT-OFF CONCENTRATIONS ARE FOLLOWS: Normal [facility] Comment on above: Performed By: #### B MP, LIVER, LIPA, SHERRI #### [facility] [address] [address] [address] Deepak August mAMP Negative Normal NEGATIVE [facility] Comment on above: Performed By: #### B MP, LIVER, LIPA, SHERRI #### [facility] [address] [address] [address] Deepak August MTD Negative Normal NEGATIVE [facility] Comment on above: Performed By: #### B MP, LIVER, LIPA, SHERRI #### [facility] [address] [address] [address] Deepak August OPI Negative Normal NEGATIVE [facility] Comment on above: Performed By: #### B MP, LIVER, LIPA, SHERRI #### [facility] [address] [address] [address] Deepak August OXY Negative Normal NEGATIVE [facility] Comment on above: Performed By: #### B MP, LIVER, LIPA, SHERRI #### [facility] [address] [address] [address] Deepak August PCP Negative Normal NEGATIVE [facility] Comment on above: Performed By: #### B MP, LIVER, LIPA, SHERRI #### [facility] [address] [address] [address] Deepak August PPX Negative Normal NEGATIVE [facility] Comment on above: Performed By: #### B MP, LIVER, LIPA, SHERRI #### [facility] [address] [address] [address] Deepak August TCA Positive Abnormal NEGATIVE [facility] Comment on above: Performed By: #### B MP, LIVER, LIPA, SHERRI #### [facility] [address] [address] [address] Deepak August THC Positive Abnormal NEGATIVE [facility] Comment on above: Performed By: #### B MP, LIVER, LIPA, SHERRI #### [facility] [address] [address] [address] Deepak August ER URINE PROFILEon 3 Bilirubin Ql (U) Negative Normal NEGATIVE [facility] Comment on above: Performed By: #### B MP, LIVER, LIPA, SHERRI #### [facility] [address] [address] [address] Deepak August Clarity (U) CLEAR Normal CLEAR [facility] Comment on above: Performed By: #### B MP, LIVER, LIPA, SHERRI #### [facility] [address] [address] [address] Deepak August Color (U) YELLOW Normal YELLOW [facility] Comment on above: Performed By: #### B MP, LIVER, LIPA, SHERRI #### [facility] [address] [place] [address] Dr. Deepak OROSCO A micrscopic examination will be performed if indicated. Normal [facility] Comment on above: Performed By: #### B MP, LIVER, LIPA, SHERRI #### [facility] [address] [place] [address] Dr. Deepak August Glucose Ql (U) Negative Normal NEGATIVE [facility] Comment on above: Performed By: #### B MP, LIVER, LIPA, SHERRI #### [facility] [address] [place] [address] Dr. Deepak August Hemoglobin Ql (U) Negative Normal NEGATIVE [facility] Comment on above: Performed By: #### B MP, LIVER, LIPA, SHERRI #### [facility] [address] [place] [address] Dr. Deepak August Ketones Ql (U) 15 mg/dl Abnormal NEGATIVE [facility] Comment on above: Performed By: #### B MP, LIVER, LIPA, SHERRI #### [facility] [address] [place] [address] Dr. Deepak August LEUKOCYTES Negative Normal NEGATIVE [facility] Comment on above: Performed By: #### B MP, LIVER, LIPA, SHERRI #### [facility] [address] [place] [address] Dr. Deepak August Nitrite Ql (U) Negative Normal NEGATIVE [facility] Comment on above: Performed By: #### B MP, LIVER, LIPA, SHERRI #### [facility] [address] [place] [address] Dr. Deepak August pH (U) 6.0 [pH] Normal 5-9 [facility] Comment on above: Performed By: #### B MP, LIVER, LIPA, SHERRI #### [facility] [address] [place] [address] Dr. Deepak August SPEC GRAVITY 1.020 Normal 1.005-<=1.02 5 [facility] Comment on above: Performed By: #### B MP, LIVER, LIPA, SHERRI #### [facility] [address] [place] [address] Dr. Deepak August UA PROTEIN Negative Normal NEGATIVE/ TRACE [facility] Comment on above: Performed By: #### B MP, LIVER, LIPA, SHERRI #### [facility] [address] [place] [address] Dr. Deepak August UR MICRO IND NOT INDICATED Normal [facility] Comment on above: Performed By: #### B MP, LIVER, LIPA, SHERRI #### [facility] [address] [place] [address] Dr. Deepak August Urobilinogen Qn (U) 0.2 {Jerod'U}/dL Normal 0.2 - 1. 0 [facility] Comment on above: Performed By: #### B MP, LIVER, LIPA, SHERRI #### [facility] [address] [place] [address] Dr. Deepak August ETHANOL (BLD ALC)on 08-29-19 ALC NOTE NOTE: 80 mg/dl is th e legal limit for a blood alcohol level Normal [facility] Comment on above: Performed By: #### B MP, LIVER, LIPA, SHERRI #### [facility] [address] [place] [address] Dr. Deepak August Ethanol [Mass/Vol] mg/dL Normal [facility] Comment on above: Performed By: #### B MP, LIVER, LIPA, SHERRI #### [facility] [address] [place] [address] Dr. Deepak August LACTATE/LACTIC ACIDon 2022 Lactate [Moles/Vol] 1.4 mmol/L Normal 0.4-2.0 [facility] Comment on above: Performed By: #### B MP, LIVER, LIPA, SHERRI #### [facility] [address] [place] [address] Dr. Deepak August LIPASEon 08-28-2022 Lipase [Catalytic activity/Vol] 47.0 U/L Critically low 73.0-393.0 [facility] Comment on above: Performed By: #### B MP, LIVER, LIPA, SHERRI #### [facility] [address] [place] [address] Dr. Deepak August LIVER PROFILEon 08-28-2022 Albumin [Mass/Vol] 4.2 g/dL Normal 3.4-5.0 [facility] Comment on above: Performed By: #### B MP, LIVER, LIPA, SHERRI #### [facility] [address] [place] [address] Dr. Deepak August Albumin/Globulin [Mass ratio] 1.2 {ratio} Normal [facility] Comment on above: Performed By: #### B MP, LIVER, LIPA, SHERRI #### [facility] [address] [place] [address] Dr. Deepak August ALP [Catalytic activity/Vol] 67 U/L Normal 46-116 [facility] Comment on above: Performed By: #### B MP, LIVER, LIPA, SHERRI #### [facility] [address] [place] [address] Dr. Deepak August ALT [Catalytic activity/Vol] 21 U/L Normal 14-59 [facility] Comment on above: Performed By: #### B MP, LIVER, LIPA, SHRERI #### [facility] [address] [place] [address] Dr. Deepak August AST [Catalytic activity/Vol] 12 U/L Critically low 15-37 [facility] Comment on above: Performed By: #### B MP, LIVER, LIPA, SHERRI #### [facility] [address] [place] [address] Dr. Deepak August BILI, CONJUGATED 0.3 mg/dL Critically high 0.0-0.2 [facility] Comment on above: Performed By: #### B MP, LIVER, LIPA, SHERRI #### [facility] [address] [place] [address] Dr. Deepak August Bilirubin [Mass/Vol] 1.4 mg/dL Critically high 0.2-1.0 [facility] Comment on above: Performed By: #### B MP, LIVER, LIPA, SHERRI #### [facility] [address] [address] [address] Deepak August Globulin (S) [Mass/Vol] 3.6 g/dL Normal [facility] Comment on above: Performed By: #### B MP, LIVER, LIPA, SHERRI #### [facility] [address] [address] [address] Deepak August Protein [Mass/Vol] 7.8 g/dL Normal 6.4-8.2 [facility] Comment on above: Performed By: #### B MP, LIVER, LIPA, SHERRI #### [facility] [address] [place] [address] Dr. Deepak August URon 08-28-2022 , QUAL Negative Normal NEGATIVE [facility] Comment on above: Performed By: #### B MP, LIVER, LIPA, SHERRI #### [facility] [address] [address] [address] Deepak August PROF CHEM 8 (BAS METB)on Anion gap [Moles/Vol] 13.5 mmol/L Normal [facility] Comment on above: Performed By: #### B MP, LIVER, LIPA, SHERRI #### [facility] [address] [place] [address] Dr. Deepak August Calcium [Mass/Vol] 9.0 mg/dL Normal 8.5-10.1 [facility] Comment on above: Performed By: #### B MP, LIVER, LIPA, SHERRI #### [facility] [address] [place] [address] Dr. Deepak August Chloride [Moles/Vol] 104 mmol/L Normal 98-107 [facility] Comment on above: Performed By: #### B MP, LIVER, LIPA, SHERRI #### [facility] [address] [place] [address] Dr. Deepak August CO2 [Moles/Vol] 23.8 mmol/L Normal 21.0-32.0 [facility] Comment on above: Performed By: #### B MP, LIVER, LIPA, SHERRI #### [facility] [address] [address] [address] Deepak August Creatinine [Mass/Vol] 0.82 mg/dL Normal 0.55-1.02 [facility] Comment on above: Performed By: #### B MP, LIVER, LIPA, SHERRI #### [facility] [address] [address] [address] Deepak August EGFR-AF CAYMAN ISLANDER >60 Normal >=60 [facility] Comment on above: Performed By: #### B MP, LIVER, LIPA, SHERRI #### [facility] [address] [place] [address] Dr. Deepak August EGFR-NON AF [place] ISLANDER >60 Normal >=60 [facility] Comment on above: Performed By: #### B MP, LIVER, LIPA, SHERRI #### [facility] [address] [place] [address] Dr. Deepak August Glucose [Mass/Vol] 119 mg/dL Critically high 74-106 [facility] Comment on above: Performed By: #### B MP, LIVER, LIPA, SHERRI #### [facility] [address] [address] [address] Deepak August Potassium [Moles/Vol] 3.3 mmol/L Critically low 3.5-5.1 [facility] Comment on above: Performed By: #### B MP, LIVER, LIPA, SHERRI #### [facility] [address] [address] [address] Deepak August Sodium [Moles/Vol] 138 mmol/L Normal 136-145 [facility] Comment on above: Performed By: #### B MP, LIVER, LIPA, SHERRI #### [facility] [address] [place] [address] Dr. Deepak August Urea nitrogen [Mass/Vol] 8.0 mg/dL Normal 7.0-18.0 [facility] Comment on above: Performed By: #### B MP, LIVER, LIPA, SHRERI #### [facility] [address] [place] [address] Dr. Deepak August Urea nitrogen/Creatinine [Mass ratio] 9.8 mg/mg Normal [facility] Comment on above: Performed By: #### B MP, LIVER, LIPA, SHERRI #### [facility] [address] [place] [address] Dr. Deepak August SALICYLATEon 08-28-2022 SALICYLATE <2.8 Normal <=19.9 [facility] Comment on above: Performed By: #### S ALYC, ACET #### [facility] [address] [place] [address] Dr. Deepak August XR CHEST 1 Von [...] STELLA MCDOWELL Date: 2022-08-28 10:31 Normal [facility] FERRITINon 06-10-2022 Ferritin [Mass/Vol] 56.0 ng/mL Normal 6.2-137.0 [facility] Comment on above: Performed By: #### B MP, LIVER, LIPA, SHERRI #### [facility] [address] [place] [address] Dr. Deepak August MAGNESIUMon 06-10-2022 Magnesium [Mass/Vol] 2.2 mg/dL Normal 1.8-2.4 [facility] Comment on above: Performed By: #### K , MG, PHOS #### [facility] [address] [place] [address] Dr. Deepak August PHOSPHORUSon 06-10-2022 Phosphate [Mass/Vol] 3.6 mg/dL Normal 2.6-4.7 [facility] Comment on above: Performed By: #### K , MG, PHOS #### [facility] [address] [place], [place] [id number] Dr. Deepak August POTASSIUMon 06-10-2022 Potassium [Moles/Vol] 3.8 mmol/L Normal 3.5-5.1 [facility] Comment on above: Performed By: #### K , MG, PHOS #### [facility] [address] [place] [address] Dr. Deepak August VIT B12 AND FOLATEon 023 Cobalamin (Vitamin B12) [Mass/Vol] 278.0 pg/mL Normal 193.0-986.0 [facility] Comment on above: Performed By: #### B MP, LIVER, LIPA, SHERRI #### [facility] [address] [place] [address] Dr. Deepak August FOLATE 7.40 ng/mL Critically low 8.60-58.90 [facility] Comment on above: Performed By: #### B MP, LIVER, LIPA, SHERRI #### [facility] [address] [place] [address] Dr. Deepak August INSULINon 02-13-2022 Insulin 16.9 uIU/mL Normal 2.6-24.9 [facility] Comment on above: Performed By: #### B MP, LIVER, LIPA, SHERRI #### [facility] [address] [place] [address] Dr. Deepak August CBC AUTO DIFFon 02-11-2022 BASO # 0.1 103/ul Normal 0.0-0.1 [facility] Comment on above: Performed By: #### B MP, LIVER, LIPA, SHERRI #### [facility] [address] [place] [address] Dr. Deepak August Basophils/100 WBC (Bld) 1.0 % Normal 0.2-2.0 [facility] Comment on above: Performed By: #### B MP, LIVER, LIPA, SHERRI #### [facility] [address] [place] [address] Dr. Deepak August EO # 0.4 103/ul Normal 0.0-0.7 [facility] Comment on above: Performed By: #### B MP, LIVER, LIPA, SHERRI #### [facility] [address] [place] [address] Dr. Deepak August Eosinophils/100 WBC (Bld) 5.4 % Normal 0.9-7.0 [facility] Comment on above: Performed By: #### B MP, LIVER, LIPA, SHERRI #### [facility] [address] [place] [address] Dr. Deepak August Erythrocyte distribution width (RBC) [Ratio] 13.0 % Normal 11.0-15.0 [facility] Comment on above: Performed By: #### B MP, LIVER, LIPA, SHERRI #### [facility] [address] [place] [address] Dr. Deepak August Hematocrit (Bld) [Volume fraction] 40.7 % Normal 36.0-48.0 [facility] Comment on above: Performed By: #### B MP, LIVER, LIPA, SHERRI #### [facility] [address] [place] [address] Dr. Deepak August Hemoglobin (Bld) [Mass/Vol] 13.4 g/dL Normal 12.0-16.0 [facility] Comment on above: Performed By: #### B MP, LIVER, LIPA, SHERRI #### [facility] [address] [place] [address] Dr. Deepak August IG # 0.02 10e3/ul Normal 0.00-0.03 [facility] Comment on above: Performed By: #### B MP, LIVER, LIPA, SHERRI #### [facility] [address] [place] [address] Dr. Deepak August IG % 0.3 % Normal 0.0-0.5 [facility] Comment on above: Performed By: #### B MP, LIVER, LIPA, SHERRI #### [facility] [address] [place] [address] Dr. Deepak August LYMPH # 1.6 103/ul Normal 1.2-3.8 [facility] Comment on above: Performed By: #### B MP, LIVER, LIPA, SHERRI #### [facility] [address] [place], [place] [id number] Dr. Deepak August Lymphocytes/100 WBC (Bld) 23.1 % Normal 20.5-60.0 [facility] Comment on above: Performed By: #### B MP, LIVER, LIPA, SHERRI #### [facility] [address] [place] [address] Dr. Deepak August MANUAL DIFF REQ NO Normal [facility] Comment on above: Performed By: #### B MP, LIVER, LIPA, SHERRI #### [facility] [address] [place] [address] Dr. Deepak August MCH (RBC) [Entitic mass] 28.6 pg Normal 26.7-34.0 [facility] Comment on above: Performed By: #### B MP, LIVER, LIPA, SHERRI #### [facility] [address] [place] [address] Dr. Deepak August MCHC (RBC) [Mass/Vol] 32.9 g/dL Normal 29.9-35.2 [facility] Comment on above: Performed By: #### B MP, LIVER, LIPA, SHERRI #### [facility] [address] [place] [address] Dr. Deepak August MCV (RBC) [Entitic vol] 86.8 fL Normal 81.0-99.0 [facility] Comment on above: Performed By: #### B MP, LIVER, LIPA, SHERRI #### [facility] [address] [place] [address] Dr. Deepak August MONO # 0.5 103/ul Normal 0.3-0.8 [facility] Comment on above: Performed By: #### B MP, LIVER, LIPA, SHERRI #### [facility] [address] [place] [address] Dr. Deepak August Monocytes/100 WBC (Bld) 6.9 % Normal 1.7-12.0 [facility] Comment on above: Performed By: #### B MP, LIVER, LIPA, SHERRI #### [facility] [address] [place] [address] Dr. Deepak August NEUT # 4.3 103/ul Normal 1.4-6.5 [facility] Comment on above: Performed By: #### B MP, LIVER, LIPA, SHERRI #### [facility] [address] [place] [address] Dr. Deepak August Neutrophils/100 WBC (Bld) 63.3 % Normal 43.0-75.0 [facility] Comment on above: Performed By: #### B MP, LIVER, LIPA, SHERRI #### [facility] [address] [place] [address] Dr. Deepak August Platelet mean volume (Bld) [Entitic vol] 9.7 fL Normal 9.5-13.5 [facility] Comment on above: Performed By: #### B MP, LIVER, LIPA, SHERRI #### [facility] [address] [place] [address] Dr. Deepak August PLT 463 103/ul Critically high 150-450 [facility] Comment on above: Performed By: #### B MP, LIVER, LIPA, SHERRI #### [facility] [address] [place] [address] Dr. Deepak August RBC 4.69 106/ul Normal 4.20-5.40 [facility] Comment on above: Performed By: #### B MP, LIVER, LIPA, SHERRI #### [facility] [address] [place] [address] Dr. Deepak August WBC 6.8 103/ul Normal 4.0-11.0 [facility] Comment on above: Performed By: #### B MP, LIVER, LIPA, SHERRI #### [facility] [address] [place] [address] Dr. Deepak August FREE THYROXINE INDEX T7on FTI 2.33 Normal 1.30-4.50 [facility] Comment on above: Performed By: #### B MP, LIVER, LIPA, SHERRI #### [facility] [address] [place] [address] Dr. Deepak August T3U 31.0 % Normal 30.0-39.0 [facility] Comment on above: Performed By: #### B MP, LIVER, LIPA, SHERRI #### [facility] [address] [place] [address] Dr. Deepak August T4 [Mass/Vol] 7.50 ug/dL Normal 4.80-13.90 [facility] Comment on above: Performed By: #### B MP, LIVER, LIPA, SHERRI #### [facility] [address] [place] [address] Dr. Deepak August GLYCOHEMOGLOBIN A1Con 2021 ADA RECOMMENDATION SEE BELOW Normal [facility] Comment on above: Result Comment: ADA RECOMMENDED LIMIT 4.0 - 6.0 ADA THERAPEUTIC TARGET < 7.0 ACTION SUGGESTED > 7.0 Performed By: #### A 1C #### [facility] [address] [place] [address] Dr. Deepak August Glucose [Mass/Vol] 114 mg/dL Normal [facility] Comment on above: Performed By: #### A 1C #### [facility] [address] [place] [address] Dr. Deepak August HbA1c (Bld) [Mass fraction] 5.6 % Normal 4.5-6.2 [facility] Comment on above: Performed By: #### A 1C #### [facility] [address] [place] [address] Dr. Deepak August IRONon 02-11-2022 Iron [Mass/Vol] 97.0 ug/dL Normal 50.0-170.0 [facility] Comment on above: Performed By: #### B MP, LIVER, LIPA, SHERRI #### [facility] [address] [place] [address] Dr. Deepak August LIPID PROFILEon 02-11-2022 CHOL-HDL RATIO NORM SEE BELOW Normal [facility] Comment on above: Result Comment: 3.3 - 4.4 LOW RISK 4.4 - 7.1 AVERAGE RISK 7.1 - 11.0 MODERATE RISK >11.0 HIGH RISK Performed By: #### B MP, LIVER, LIPA, SHERRI #### [facility] [address] [place] [address] Dr. Deepak August Cholesterol [Mass/Vol] 172 mg/dL Normal <=200 e [facility] Comment on above: Performed By: #### B MP, LIVER, LIPA, SHERRI #### [facility] [address] [address] [address] Deepak August Cholesterol in HDL [Mass/Vol] 64 mg/dL Critically high 40-60 [facility] Comment on above: Performed By: #### B MP, LIVER, LIPA, SHERRI #### [facility] [address] [address] [address] Deepak August Cholesterol in LDL [Mass/Vol] 98.0 mg/dL Normal [facility] Comment on above: Performed By: #### B MP, LIVER, LIPA, SHERRI #### [facility] [address] [place] [address] Dr. Deepak August Cholesterol.total/Chol esterol in HDL [Mass ratio] 2.7 {ratio} Normal [facility] Comment on above: Performed By: #### B MP, LIVER, LIPA, SHERRI #### [facility] [address] [place] [address] Dr. Deepak August HDL NORMAL > or = 60 mg/dl - LO W CARDIOVASCULAR RISK <40 mg/dl - HIGH CARDIOVASCULAR RISK Normal [facility] Comment on above: Performed By: #### B MP, LIVER, LIPA, SHERRI #### [facility] [address] [address] [address] Deepak August LDL CALC NORMAL SEE BELOW Normal [facility] Comment on above: Result Comment: <100 mg/dl OPTIMAL 100 - 129 mg/dl NEAR OR ABOVE OPTIMAL 130 - 159 mg/dl BORDERLINE HIGH 160 - 189 mg/dl HIGH >190 mg/dl VERY HIGH Performed By: #### B MP, LIVER, LIPA, SHERRI #### [facility] [address] [address] [address] Deepak August Triglyceride [Mass/Vol] 50 mg/dL Normal <=150 [facility] Comment on above: Performed By: #### B MP, LIVER, LIPA, SHERRI #### [facility] [address] [address] [address] Deepak August VLDL CALC 10.0 mg/dL Normal [facility] Comment on above: Performed By: #### B MP, LIVER, LIPA, SHERRI #### [facility] [address] [place] [address] Dr. Deepak August PROF 14(COMP METB)on 022 Albumin [Mass/Vol] 3.9 g/dL Normal 3.4-5.0 [facility] Comment on above: Performed By: #### B MP, LIVER, LIPA, SHERRI #### [facility] [address] [place] [address] Dr. Deepak August Albumin/Globulin [Mass ratio] 1.3 {ratio} Normal [facility] Comment on above: Performed By: #### B MP, LIVER, LIPA, SHERRI #### [facility] [address] [place] [address] Dr. Deepak August ALP [Catalytic activity/Vol] 67 U/L Normal 46-116 [facility] Comment on above: Performed By: #### B MP, LIVER, LIPA, SHERRI #### [facility] [address] [place] [address] Dr. Deepak August ALT [Catalytic activity/Vol] 39 U/L Normal 14-59 [facility] Comment on above: Performed By: #### B MP, LIVER, LIPA, SHERRI #### [facility] [address] [place] [address] Dr. Deeapk August Anion gap [Moles/Vol] 9.4 mmol/L Normal [facility] Comment on above: Performed By: #### B MP, LIVER, LIPA, SHERRI #### [facility] [address] [place] [address] Dr. Deepak August AST [Catalytic activity/Vol] 16 U/L Normal 15-37 [facility] Comment on above: Performed By: #### B MP, LIVER, LIPA, SHERRI #### [facility] [address] [place] [address] Dr. Deepak August Bilirubin [Mass/Vol] 0.6 mg/dL Normal 0.2-1.0 [facility] Comment on above: Performed By: #### B MP, LIVER, LIPA, SHERRI #### [facility] [address] [place] [address] Dr. Deepak August Calcium [Mass/Vol] 8.6 mg/dL Normal 8.5-10.1 [facility] Comment on above: Performed By: #### B MP, LIVER, LIPA, SHERRI #### [facility] [address] [place] [address] Dr. Deepak August Chloride [Moles/Vol] 105 mmol/L Normal 98-107 [facility] Comment on above: Performed By: #### B MP, LIVER, LIPA, SHERRI #### [facility] [address] [place] [address] Dr. Deepak August CO2 [Moles/Vol] 27.7 mmol/L Normal 21.0-32.0 [facility] Comment on above: Performed By: #### B MP, LIVER, LIPA, SHERRI #### [facility] [address] [place] [address] Dr. Deepak August Creatinine [Mass/Vol] 0.68 mg/dL Normal 0.55-1.02 [facility] Comment on above: Performed By: #### B MP, LIVER, LIPA, SHERRI #### [facility] [address] [place] [address] Dr. Deepak August EGFR-AF CAY[place] ISLANDER >60 Normal >=60 [facility] Comment on above: Performed By: #### B MP, LIVER, LIPA, SHERRI #### [facility] [address] [place] [address] Dr. Deepak August EGFR-NON AF [place] ISLANDER >60 Normal >=60 [facility] Comment on above: Performed By: #### B MP, LIVER, LIPA, SHERRI #### [facility] [address] [place] [address] Dr. Deepak August Globulin (S) [Mass/Vol] 3.1 g/dL Normal [facility] Comment on above: Performed By: #### B MP, LIVER, LIPA, SHERRI #### [facility] [address] [place] [address] Dr. Deepak August Glucose [Mass/Vol] 115 mg/dL Critically high 74-106 [facility] Comment on above: Performed By: #### B MP, LIVER, LIPA, SHERRI #### [facility] [address] [address] [address] Deepak August Potassium [Moles/Vol] 4.1 mmol/L Normal 3.5-5.1 [facility] Comment on above: Performed By: #### B MP, LIVER, LIPA, SHERRI #### [facility] [address] [address] [address] Deepak August Protein [Mass/Vol] 7.0 g/dL Normal 6.4-8.2 [facility] Comment on above: Performed By: #### B MP, LIVER, LIPA, SHERRI #### [facility] [address] [place] [address] Dr. Deepak August Sodium [Moles/Vol] 138 mmol/L Normal 136-145 [facility] Comment on above: Performed By: #### B MP, LIVER, LIPA, SHERRI #### [facility] [address] [address] [address] Deepak August Urea nitrogen [Mass/Vol] 6.0 mg/dL Critically low 7.0-18.0 [facility] Comment on above: Performed By: #### B MP, LIVER, LIPA, SHERRI #### [facility] [address] [place] [address] Dr. Deepak August Urea nitrogen/Creatinine [Mass ratio] 8.8 mg/mg Normal [facility] Comment on above: Performed By: #### B MP, LIVER, LIPA, SHERRI #### [facility] [address] [place] [address] Dr. Deepak August TSHon 02-11-2022 TSH 0.860 uIU/mL Normal 0.358-3.740 [facility] Comment on above: Performed By: #### B MP, LIVER, LIPA, SHERRI #### [facility] [address] [place] [address] Dr. Deepak August MG MAMM SCREEN 3D FAISAL CADon 09-28-2022 MG MAMM SCREEN 3D FAISAL CAD Patient: RAMY MARTINEZ Exam Date: 02/01/2022 : 1980 Gender:F Ordering : DR RNEA SMITH . Admission #: [id number] Family : Order #: [id number] CLICK HERE TO VIEW EXAM RADIOLOGY REPORT [...] uterine cancer at age 40. LOCATION: [facility] BREAST COMPOSITION: Heterogeneously dense,which may obscure small [...] Krystal Vasquez MD on 02/01/2022 at 08:53 [facility] PAP ACOG PANEL 2: 30 to 65on 01-31-2022 . . Normal [facility] Comment on above: Result Comment: Perf ormed at: WB Performed By: #### B MP, LIVER, LIPA, SHERRI #### [facility] [address] [address] [address] Deepak August Age Gdln ACOG Testing 30-65 Normal [facility] Comment on above: Performed By: #### B MP, LIVER, LIPA, SHERRI #### [facility] [id number] Deepak August DIAGNOSIS: Comment Normal [facility] Comment on above: Result Comment: NEGA TIVE FOR INTRAEPITHELIAL LESION OR MALIGNANCY. FUNGAL ORGANISMS MORPHOLOGICALLY CONSISTENT WITH JAY SPECIES ARE PRESENT. CELLULAR CHANGES ASSOCIATED WITH INFLAMMATION ARE PRESENT. Performed at: WB Performed By: #### B MP, LIVER, LIPA, SHERRI #### [facility] [address] [address] [address] Deepak August HPV Aptima Negative Normal Negative [facility] Comment on above: Result Comment: This nucleic acid amplification test detects fourteen high-risk HPV types (16,18,31,33,35,39,45,51,52,56,58,59,66,68) without differentiation. Performed at: =G Performed By: #### B MP, LIVER, LIPA, SHERRI #### [facility] [address] [address] [address] Deepak August Methodology: Comment Normal [facility] Comment on above: Result Comment: This liquid based ThinPrep(R) pap test was screened with the use of an image guided system. Performed at: WB Performed By: #### B MP, LIVER, LIPA, SHERRI #### [facility] [address] [address] [address] Deepak August Note: Comment Normal [facility] Comment on above: Result Comment: The Pap [...] #### B MP, LIVER, LIPA, SHERRI #### [facility] [address] [place] [address] Dr. Deepak August Performed by: Comment Normal [facility] Comment on above: Result Comment: Ness Ortiz, Traffic Circuit Engineer (ASCP) Performed at: WB Performed By: #### B MP, LIVER, LIPA, SHERRI #### [facility] [address] [address] [address] Deepak August Specimen adequacy: Comment Normal [facility] Comment on above: Result Comment: Sati sfactory for evaluation. No endocervical component is identified. Performed at: WB Performed By: #### B MP, LIVER, LIPA, SHERRI #### [facility] [address] [address] [address] Deepak August PROF CHEM 8 (BAS METB)on Anion gap [Moles/Vol] 12.9 mmol/L Normal [facility] Comment on above: Performed By: #### B MP, LIVER, LIPA, SHERRI #### [facility] [address] [address] [address] Deepak August Calcium [Mass/Vol] 8.7 mg/dL Normal 8.5-10.1 [facility] Comment on above: Performed By: #### B MP, LIVER, LIPA, SHERRI #### [facility] [address] [place] [address] Dr. Deepak August Chloride [Moles/Vol] 105 mmol/L Normal 98-107 [facility] Comment on above: Performed By: #### B MP, LIVER, LIPA, SHERRI #### [facility] [address] [place] [address] Dr. Deepak August CO2 [Moles/Vol] 25.3 mmol/L Normal 21.0-32.0 [facility] Comment on above: Performed By: #### B MP, LIVER, LIPA, SHERRI #### [facility] [address] [place] [address] Dr. Deepak August Creatinine [Mass/Vol] 0.69 mg/dL Normal 0.55-1.02 [facility] Comment on above: Performed By: #### B MP, LIVER, LIPA, SHERRI #### [facility] [address] [place] [address] Dr. Deepak August EGFR-AF [place] ISLANDER >60 Normal >=60 [facility] Comment on above: Performed By: #### B MP, LIVER, LIPA, SHERRI #### [facility] [address] [place] [address] Dr. Deepak August EGFR-NON AF [place] ISLANDER >60 Normal >=60 [facility] Comment on above: Performed By: #### B MP, LIVER, LIPA, SHERRI #### [facility] [address] [place] [address] Dr. Deepak August Glucose [Mass/Vol] 114 mg/dL Critically high 74-106 [facility] Comment on above: Performed By: #### B MP, LIVER, LIPA, SHERRI #### [facility] [address] [address] [address] Deepak August Potassium [Moles/Vol] 4.2 mmol/L Normal 3.5-5.1 [facility] Comment on above: Performed By: #### B MP, LIVER, LIPA, SHERRI #### [facility] [address] [address] [address] Deepak August Sodium [Moles/Vol] 139 mmol/L Normal 136-145 [facility] Comment on above: Performed By: #### B MP, LIVER, LIPA, SHERRI #### [facility] [address] [address] [address] Deepak August Urea nitrogen [Mass/Vol] 6.0 mg/dL Critically low 7.0-18.0 [facility] Comment on above: Performed By: #### B MP, LIVER, LIPA, SHERRI #### [facility] [address] [address] [address] Deepak August Urea nitrogen/Creatinine [Mass ratio] 8.7 mg/mg Normal [facility] Comment on above: Performed By: #### B MP, LIVER, LIPA, SHERRI #### [facility] [address] [address] [address] Deepak August *HCG*POCT*DEVICEon 8 HCG.beta subunit ( test) Ql (U) Negative Normal Negative [facility] *POC GLUCOSE BATTERYon 09-03 *POC SAMPLE TYPE Capillary Blood Normal [facility] Glucose mass conc 106 mg/dL High 70-99 [facility] Comment on above: Result Comment: No Benji GUNDERSON per RN: PATIENT TYPE Surgical Pathologyon 018 Surgical Pathology Surgical Pathology ReportPatient Name: RAMY MARTINEZ Rec #: [id number] Physician: LUIS GARCÍA--- Clinical History ---Preop Diagnosis: [...] developed by and are performed at [facility], [address] [place] [address]. All tests reported here, except those addressing HER2 overexpressionas a predictive marker, have not been cleared by or approved by the [place] Foodand Drug Administration (FDA). The laboratory is regulated under CLIA asqualified to perform high-complexity testing. The tests are used forclinical purposes. They should not be regarded as investigational or forresearch. mg03/[id number]:09/05/2017 *Electronically Signed ByJunior Hitchcock MD, PhD09/05/2017 17:39:19Professional Interpretation performed at location: [address] [place] [address]---SPECIMEN(S) RECEIVED:---SBXA: Colon, BXB: Colon, BXC: Colon, BXD: [...] TE 1 Lab Use Only: Job ID [id number] description by: Beata De Guzman Normal [facility] Comment on above: Performed By: #### S URGP ####[facility] [place], [place] [id number] [address] [place] [address] C Reactive Proteinon 018 C reactive protein (CRP) 3.70 mg/L Normal <10.00 [facility] Comment on above: Performed By: #### C BCDFC, CMPN, CRP ####[facility] [place] [address], [address] [place] [address] CBC,PLATELET,DIFFERENTIAL - CCLon 06-11-2017 Abs Baso 0.10 K/uL High 0.01-0.08 [facility] Comment on above: Performed By: #### C BCDFC, CMPN, CRP ####[facility] [place], [place] [id number] [address] [place] [address] Abs Eos 1.05 K/uL High 0.04-0.36 [facility] Comment on above: Performed By: #### C BCDFC, CMPN, CRP ####[facility] [place], [place] [id number] [address] [place] [address] Abs Fulton 0.72 K/uL Normal 0.24-0.86 [facility] Comment on above: Performed By: #### C BCDFC, CMPN, CRP ####[facility] [place] [address]NpapwgAccess Hospital [facility] [place] [address] Basophils/100 WBC Auto (Bld) 1.0 % Normal [facility] Comment on above: Performed By: #### C BCDFC, CMPN, CRP ####[facility] [place] [address]LxgcfxAccess Hospital [facility] [place], [place] [address] DIFFERENTIAL TYPE Electronic Differential Normal [facility] Comment on above: Performed By: #### C BCDFC, CMPN, CRP ####[facility] [place], [place] [address]LwkthoAccess Hospital [facility] [place], [place] [address] Eosinophils/100 leukocytes 10.2 % Normal [facility] Comment on above: Performed By: #### C BCDFC, CMPN, CRP ####[facility] [place] [address]KgggpbAccess Hospital [facility] [place] [address] Erythrocytes (RBC) 4.80 10*6/uL Normal 3.93-5.22 [facility] Comment on above: Performed By: #### C BCDFC, CMPN, CRP ####[facility] [place] [address]ZxjkhjAccess Hospital [facility] [place], [place] [address] Erythrocytes (RBC) 13.1 % Normal 11.7-14.4 [place] Comment on above: Performed By: #### C BCDFC, CMPN, CRP ####[facility] [facility] [address]CdruelAccess Hospital [facility] [place], [place] [address] Hematocrit (HCT) 41.8 % Normal 34.1-44.9 [facility] Comment on above: Performed By: #### C BCDFC, CMPN, CRP ####[facility] [place] [address], [place] [address] [place], [place] [id number] [address] [place] [address] Hemoglobin mass conc (Bld) 28.5 pg Normal 25.6-32.2 [facility] Comment on above: Performed By: #### C BCDFC, CMPN, CRP ####[facility] [facility], [place] [address] [place], [place] [id number] [address] [place] [address] Hemoglobin mass conc (Bld) 32.8 g/dL Normal 32.2-35.5 [facility] Comment on above: Performed By: #### C BCDFC, CMPN, CRP ####[facility] [place] [address], [address] [place] [address] Hemoglobin mass conc (Bld) 13.7 g/dL Normal 11.2-15.7 [facility] Comment on above: Performed By: #### C BCDFC, CMPN, CRP ####[facility] [place], [place] [id number] [address] [place] [address] IMMATURE GRANS % 0.3 % Normal [facility] Comment on above: Performed By: #### C BCDFC, CMPN, CRP ####[facility] [place], [place] [id number] [address] [place] [address] IMMATURE GRANS ABSOLUTE 0.03 K/uL Normal 0.00-0.03 [facility] Comment on above: Performed By: #### C BCDFC, CMPN, CRP ####[facility] [place], [place] [id number] [address] [place] [address] Lymphocytes 2.73 10*3/uL Normal 1.18-3.74 [facility] Comment on above: Performed By: #### C BCDFC, CMPN, CRP ####[facility] [place], [place] [address]QztdisAccess Hospital [facility] [place] [address] Lymphocytes/100 leukocytes 26.5 % Normal [facility] Comment on above: Performed By: #### C BCDFC, CMPN, CRP ####[facility] [place] [address] [place], [place] [id number] [place], [place] [address] MCV 87.1 fL Normal 79.4-94.8 [facility] Comment on above: Performed By: #### C BCDFC, CMPN, CRP ####[facility] [place], [place] [id number] [address] [place] [address] Monocytes/100 leukocytes 7.0 % Normal [facility] Comment on above: Performed By: #### C BCDFC, CMPN, CRP ####[facility] [place], [place] [address] [place], [place] [id number] [address] [place] [address] NEUTROPHIL SEGMENTED 55.0 % Normal [facility] Comment on above: Performed By: #### C BCDFC, CMPN, CRP ####[facility] [place] [address] [place], [place] [address] [address] [place] [address] Nucleated erythrocytes 0.0 /100 WBC Normal 0.0-0.2 [facility] Comment on above: Performed By: #### C BCDFC, CMPN, CRP ####[facility] [place] [address] [place], [place] [address] [address] [place] [address] Platelet mean volume (PMV) 11.1 fL Normal 9.4-12.3 [facility] Comment on above: Performed By: #### C BCDFC, CMPN, CRP ####[facility] [place], [place] [address] [place], [place] [address] [address] [place] [address] Platelets 433 10*3/uL High 182-369 [facility] Comment on above: Performed By: #### C BCDFC, CMPN, CRP ####[facility] [place], [place] [address] [address] [place] [address] SEGS + Bands,Absolute 5.66 K/uL Normal 1.56-6.13 [facility] Comment on above: Performed By: #### C BCDFC, CMPN, CRP ####[facility] [place], [place] [address] [address] [place] [address] WBC (Leukocytes) 10.29 10*3/uL High 3.98-10.04 [facility] Comment on above: Performed By: #### C BCDFC, CMPN, CRP ####[facility] [place], [place] [address] [address] [place] [address] Comprehensive Metabolic Pane [place] 06-11-2017 Alanine aminotransferase (ALT) 15 U/L Normal 9-48 [facility] Comment on above: Performed By: #### C BCDFC, CMPN, CRP ####[facility] [place], [place] [address] [address] [place] [address] Albumin 4.6 g/dL Normal 3.5-5.0 [facility] Comment on above: Performed By: #### C BCDFC, CMPN, CRP ####[facility] [place] [address] [place], [place] [address] [address] [place] [address] Alkaline phosphatase (ALP) 77 U/L Normal 32-126 [facility] Comment on above: Performed By: #### C BCDFC, CMPN, CRP ####[facility] [facility] [place] [address]XoszfgAccess Hospital [place] [place] [address] Anion gap 12 mmol/L Normal 7-17 [facility] Comment on above: Performed By: #### C BCDFC, CMPN, CRP ####[facility] [place], [place] [address]TtzuojAccess Hospital [facility] [place] [address] Aspartate aminotransferase (AST) 14 U/L Normal 14-40 [facility] Comment on above: Performed By: #### C BCDFC, CMPN, CRP ####[facility] [place] [address] [place], [place] [address] [address] [place] [address] Bilirubin (total) 0.4 mg/dL Normal <1.5 [facility] Comment on above: Performed By: #### C BCDFC, CMPN, CRP ####[facility] [place] [address], [place] [address]RnokbzAccess Hospital [facility] [place] [address] BUN/Creatinine Ratio 13 mg/mg Normal [facility] Comment on above: Performed By: #### C BCDFC, CMPN, CRP ####[facility] [place] [address], [place] [address]VacfqfAccess Hospital [facility] [place] [address] Calcium 9.5 mg/dL Normal 8.6-10.5 [facility] Comment on above: Performed By: #### C BCDFC, CMPN, CRP ####[facility] [place] [address] [place], [place] [address] [address] [place] [address] Chloride 104 mmol/L Normal 98-108 [facility] Comment on above: Performed By: #### C BCDFC, CMPN, CRP ####[facility] [place] [address] [place], [place] [address] [address] [place] [address]39 CO2 27 mmol/L Normal 22-30 [facility] Comment on above: Performed By: #### C BCDFC, CMPN, CRP ####[facility] [place] [address] [place], [place] [address] [address] [place] [address] Creatinine 0.68 mg/dL Normal 0.50-1.20 [facility] Comment on above: Performed By: #### C BCDFC, CMPN, CRP ####[facility] [place] [address] [place], [place] [address] [place] [address] eGFR (non-black) mL/min/{1.73_m2} Normal >60 [facility] Comment on above: Performed By: #### C BCDFC, CMPN, CRP ####[facility] [place] [address] [place], [place] [address] [place] [address] Glucose mass conc 90 mg/dL Normal 70-99 [facility] Comment on above: Performed By: #### C BCDFC, CMPN, CRP ####[facility] [place] [address] [place], [place] [address] [place] [address] Osmolality 288 mOsm/kg Normal 278-305 [facility] Comment on above: Performed By: #### C BCDFC, CMPN, CRP ####[facility] [place] [address]OeklogAccess Hospital [facility] [place] [address]57 Potassium molar conc 3.7 mmol/L Normal 3.5-5.0 [facility] Comment on above: Performed By: #### C BCDFC, CMPN, CRP ####[facility] [place] [address]WhfotwAccess Hospital [facility] [place] [address] Protein 7.6 g/dL Normal 6.4-8.3 [facility] Comment on above: Performed By: #### C BCDFC, CMPN, CRP ####[facility] [place], [place] [address] [address] [place] [address]92 Sodium 139 mmol/L Normal 133-143 [facility] Comment on above: Performed By: #### C BCDFC, CMPN, CRP ####[facility] [place], [place] [address] [address] [place] [address] 31755 Urea nitrogen 9 mg/dL Normal 7-22 [facility] Comment on above: Performed By: #### C BCDFC, CMPN, CRP ####[facility] [place], [place] [address] [address] [place] [address] Vital Signs Date Time Vital Sign Value Performing Clinician Facility 01-12-2025 15:05-0400 Body mass index (BMI) [Ratio] 34.03 kg/m2 Cintia Franco [employer] Work Phone: [facility] 01-12-2025 15:05-040 Body weight 92.76 kg Cintia Franco NP Work Phone: [facility] 01-12-2025 15:05-0400 Diastolic blood pressure 90 mm[Hg] Cintia Franco [employer] Work Phone: [facility] 01-12-2025 15:05-0400 Systolic blood pressure 142 mm[Hg] Cintia Franco [employer] Work Phone: [facility] 09-24-2024 08:18-0400 Blood Pressure Location Torres Sarmini [facility] 09-24-2024 08:18-0400 Diastolic blood pressure 86 mm[Hg] Torres Sarmini [facility] 09-24-2024 08:18-0400 Heart rate 73 /min Torres Sarmini [facility] 09-24-2024 08:18-0400 Systolic blood pressure 125 mm[Hg] Torres Sarmini [facility] 01-22-2024 15:40-0400 Body height 165.1 cm Denisse Chiang MD Work Phone: [facility] 01-22-2024 15:40-0400 Body mass index (BMI) [Ratio] 29.79 kg/m2 Denisse Chiang MD Work Phone: [facility] 01-22-2024 15:40-0400 Body weight 81.19 kg Denisse Chiang MD Work Phone: [facility] 01-22-2024 15:40-0400 Diastolic blood pressure 81 mm[Hg] Denisse Chiang MD Work Phone: [facility] 01-22-2024 15:40-0400 Heart rate 76 /min Denisse Chiang MD Work Phone: [facility] 01-22-2024 15:40-0400 Systolic blood pressure 117 mm[Hg] Denisse Chiang MD Work Phone: [facility] 01-03-2024 15:07-0400 Body mass index (BMI) [Ratio] 29.64 kg/m2 Sherri LARKIN Work Phone: [facility] 01-03-2024 15:07-0400 Body weight 80.8 kg Sherri LARKIN Work Phone: [facility] 01-03-2024 15:07-0400 Diastolic blood pressure 76 mm[Hg] Sherri Reynolds PA Work Phone: [facility] 01-03-2024 15:07-0400 Systolic blood pressure 110 mm[Hg] Sherri Reynolds PA Work Phone: [facility] 12-24-2023 20:30-0400 Diastolic blood pressure 63 mm[Hg] Denisse Chiang MD Work Phone: [facility] 12-24-2023 20:30-0400 Heart rate 84 /min Denisse Chiang MD Work Phone: [facility] 12-24-2023 20:30-0400 Respiratory rate 17 /min Denisse Chiang MD Work Phone: [facility] 12-24-2023 20:30-0400 SaO2% (BldA) [Mass fraction] 99 % Denisse Chiang MD Work Phone: [facility] 12-24-2023 20:30-0400 Systolic blood pressure 110 mm[Hg] Denisse Chiang MD Work Phone: [facility] 12-24-2023 20:00-0400 Body temperature 97.2 [degF] Denisse Chiang MD Work Phone: [facility] 12-24-2023 12:43-0400 Body height 165.1 cm Denisse Chiang MD Work Phone: [facility] 12-24-2023 12:43-0400 Body mass index (BMI) [Ratio] 28.96 kg/m2 Denisse Chiang MD Work Phone: [facility] 12-24-2023 12:43-0400 Body weight 78.93 kg Denisse Chiang MD Work Phone: [facility] 10-09-2023 13:06-0400 Body height 165.1 cm Denisse Chiang MD Work Phone: [facility] 10-09-2023 13:06-0400 Body mass index (BMI) [Ratio] 29.79 kg/m2 Denisse Chiang MD Work Phone: [facility] 10-09-2023 13:06-0400 Body weight 81.19 kg Denisse Chiang MD Work Phone: [facility] 10-09-2023 13:06-0400 Diastolic blood pressure 82 mm[Hg] Denisse Chiang MD Work Phone: [facility] 10-09-2023 13:06-0400 Heart rate 84 /min Denisse Chiang MD Work Phone: [facility] 10-09-2023 13:06-0400 Systolic blood pressure 126 mm[Hg] Denisse Chiang MD Work Phone: [facility] 09-25-2023 14:27-0400 Blood Pressure Location Torres Sarmini [facility] 09-25-2023 14:27-0400 Diastolic blood pressure 80 mm[Hg] Torres Sarmini [facility] 09-25-2023 14:27-0400 Heart rate 70 /min Torres Sarmini [facility] 09-25-2023 14:27-0400 Respiratory rate 18 /min Torres Sarmini [facility] 09-25-2023 14:27-0400 Systolic blood pressure 116 mm[Hg] Torres Sarmini [facility] 09-10-2023 14:15-0400 Diastolic blood pressure 88 mm[Hg] Torres Sarmini [facility] 09-10-2023 14:15-0400 Heart rate 78 /min Torres Sarmini [facility] 09-10-2023 14:15-0400 Respiratory rate 17 /min Torres Sarmini [facility] 09-10-2023 14:15-0400 SaO2% (BldA) [Mass fraction] 100 % Torres Sarmini [facility] 09-10-2023 14:15-0400 Systolic blood pressure 137 mm[Hg] Torres Sarmini [facility] 09-10-2023 14:05-0400 Diastolic blood pressure 89 mm[Hg] Torres Sarmini [facility] 09-10-2023 14:05-0400 Heart rate 72 /min Torres Sarmini [facility] 09-10-2023 14:05-0400 Respiratory rate 16 /min Torres Sarmini [facility] 09-10-2023 14:05-0400 SaO2% (BldA) [Mass fraction] 99 % Torres Sarmini [facility] 09-10-2023 14:05-0400 Systolic blood pressure 147 mm[Hg] Torres Sarmini [facility] 09-10-2023 14:00-0400 Heart rate 75 /min Torres Sarmini [facility] 09-10-2023 14:00-0400 Systolic blood pressure 142 mm[Hg] Torres Sarmini [facility] 09-10-2023 13:49-0400 Body temperature 97.7 [degF] Torres Sarmini [facility] 09-10-2023 13:45-0400 Respiratory rate 14 /min Torres Sarmini [facility] 09-10-2023 13:40-0400 Respiratory rate 14 /min Torres Sarmini [facility] 09-10-2023 13:35-0400 Respiratory rate 13 /min Torres Sarmini [facility] 09-10-2023 11:40-0400 Blood Pressure Location Torres Sarmini [facility] 09-10-2023 11:40-0400 Body temperature 97.52 [degF] Torres Sarmini [facility] 07-11-2023 07:38-0500 Blood Pressure Location Torres Sarmini [facility] 07-11-2023 07:38-0500 Diastolic blood pressure 88 mm[Hg] Torres Sarmini [facility] 07-11-2023 07:38-0500 Heart rate 80 /min Torres Sarmini [facility] 07-11-2023 07:38-0500 Respiratory rate 18 /min Torres Sarmini [facility] 07-11-2023 07:38-0500 Systolic blood pressure 128 mm[Hg] Torres Sarmini [facility] 08-31-2022 17:05-0400 Body temperature 98.4 [degF] MD Yaquelin Perez Work Phone: [facility] 08-31-2022 17:05-0400 Diastolic blood pressure 86 mm[Hg] MD Yaquelin Perez Work Phone: [facility] 08-31-2022 17:05-0400 Heart rate 72 /min MD Yaquelin Perez Work Phone: [facility] 08-31-2022 17:05-0400 Respiratory rate 18 /min MD Yaquelin Perez Work Phone: [facility] 08-31-2022 17:05-0400 SaO2% (BldA) [Mass fraction] 100 % MD Yaquelin Perez Work Phone: [facility] 08-31-2022 17:05-0400 Systolic blood pressure 129 mm[Hg] MD Yaquelin Perez Work Phone: [facility] 08-29-2022 14:54-0400 Body height 166.37 cm MD Yaquelin Perez Work Phone: [facility] 08-28-2022 17:33-0400 Body weight 96.61 kg MD Yaquelin Perez Work Phone: [facility] 08-30-2021 10:00-0400 Body height 165.1 cm Reddy Dewitt Other [facility] Other 08-30-2021 10:00-0400 Body mass index (BMI) [Ratio] 36.61 kg/m2 Reddy Dewitt Other [facility] Other 08-30-2021 10:00-0400 Body weight 99.79 kg Reddy Dewitt Other [employer] Other Encounters Encounter Date Encounter Type Care Provider Facility Start: 11-04-2025 ambulatory [facility] Facility:[facility] Start: 01-12-2025 End: 01-12-2025 Patient encounter procedure Cintia Franco NP Work Phone: [facility] Start: 01-12-2025 End: 01-12-2025 Periodic preventive med est patient 40-64yrs Cintia Franco NP Work Phone: [facility] Comment on above: Pelvic pain in femal e (Primary Dx); Well woman exam with routine gynecological exam; Encounter for screening mammogram for malignant neoplasm of breast; Breast pain, left Start: 01-12-2025 End: 01-12-2025 Bamboo flowsheet Cintia Franco [employer] Work Phone: [facility] Start: 01-12-2025 End: 01-12-2025 Bamboo flowsheet Cintia Franco [employer] Work Phone: [facility] Start: 01-09-2025 End: 01-09-2025 Clinisync Result Encounter Sherri LARKIN Work Phone: [facility] Unsolicited Start: 01-09-2025 End: 01-09-2025 Clinisync Result Encounter Sherri LARKIN Work Phone: [facility]solic[facility] Start: 12-29-2024 End: 12-29-2024 ambulatory [facility] Start: 11-05-2024 End: 11-05-2024 ambulatory Torres Talal Sarmini Facility:[facility] Start: 11-05-2024 End: 11-05-2024 Patient encounter procedure Torres Talal Sarmini [facility] Start: 10-20-2024 End: 10-21-2024 ambulatory [facility] Start: 10-07-2024 End: 10-07-2024 Lab Drop off Torres Talal Sarmini [facility] Start: 10-07-2024 End: 10-07-2024 ambulatory Torres Talal Sarmini Facility:[facility] Start: 10-07-2024 End: 10-07-2024 ambulatory Torres Talal Sarmini Facility::[id number] Start: 09-24-2024 End: 09-24-2024 ambulatory Melissa Rivera Facility:[facility] Start: 09-24-2024 End: 09-24-2024 Patient encounter procedure Melissa Rivera [facility] Start: 01-22-2024 End: 01-22-2024 Postop follow up visit related to original px Denisse Chiang MD Work Phone: [facility] Comment on above: Prolapsed internal h emorrhoids (Primary Dx) Start: 01-22-2024 End: 01-22-2024 ambulatory DENISSE [facility] Ambulatory Start: 01-03-2024 End: 01-03-2024 [...] Start: 12-24-2023 End: 12-24-2023 ambulatory DENISSE CHIANG [facility] Start: 12-24-2023 End: 12-24-2023 Subsequent hospital visit by physician Denisse Chiang MD Work Phone: [facility] [place] Comment on above: Prolapsed internal h emorrhoids Start: 12-13-2023 End: 12-13-2023 ambulatory YAQUELIN PEREZ [facility] Start: 12-13-2023 End: 12-13-2023 Encounter for other preprocedural examination YAQUELIN PEREZ [facility] Start: 11-28-2023 End: 11-28-2023 ambulatory YAQUELIN SALCEDO [facility] Start: 11-28-2023 End: 11-28-2023 ambulatory JOSEPH H [facility] Ambulatory Start: 11-28-2023 End: 11-28-2023 ambulatory [facility] Start: 10-24-2023 ambulatory [place] Person acility:[facility] Start: 10-09-2023 End: 10-09-2023 Office outpatient new 30 minutes Denisse Chiang MD Work Phone: [facility] Comment on above: Rectal prolapse (Coni briseida Dx); Internal hemorrhoids Start: 10-09-2023 End: 10-09-2023 ambulatory [facility] Ambulatory Start: 09-25-2023 End: 09-25-2023 Patient encounter procedure Torres Talal Sarmini [facility] Start: 09-10-2023 End: 09-10-2023 Patient encounter procedure Torres Talal Sarmini [facility] Start: 07-11-2023 End: 07-11-2023 Patient encounter procedure Torres Talal Sarmini [facility] Start: 07-11-2023 End: 07-11-2023 Patient encounter procedure Torres Talal Sarmini [facility] Start: 08-28-2022 End: 08-31-2022 Evaluation and management of inpatient MD Yaquelin Perez Work Phone: [facility] Work Phone: Start: 08-28-2022 End: 08-28-[address] YAQUELIN PEREZ . Facility:[facility] Start: 08-16-2022 ambulatory CHASITY BOOKER Facility:[facility] Start: 06-10-2022 End: 06-11-[address] NICOLLE BALL Facility:[facility] Start: 02-14-2022 Encounter for genera l adult medical examination without abnormal findings DR YAQUELIN PEREZ . [facility] Start: 02-13-2022 End: 02-14-[address] YAQUELIN [...] BOOKER Facility:[facility] Start: 08-30-2021 End: 08-30-2021 ambulatory Rdedy Dewitt Other [facility] [employer] Other Start: 08-30-2021 Office outpatient vi sit 15 minutes Reddy Dewitt [facility] Start: 08-09-2021 End: 08-09-2021 Patient encounter procedure MD Yaquelin Perez Work Phone: [facility] [place] Start: 09-03-2017 End: 09-03-2017 Ambulatory JUDITH P ROMELIA [place] Start: 06-11-2017 Ambulatory JOSEFINA ABERRA [facility] Start: 06-11-2017 Ambulatory JOSEFINA CHAVEZ [facility] Procedures Date Procedure Procedure Detail Performing Clinician Start: 01-09-2025 MM TOMOSYNTHESIS SCREENING BI Sherri LARKIN Work Phone: Start: 01-09-2025 Mammography Sherri LARKIN Work Phone: Start: 01-03-2024 IGP,APTIMA HPV,AGE GDLN Sherri LARKIN [...] ablation Chasity Carrillo ALAM Hemorrhoid operation Derian Rivera Hemorrhoids (disorder) Chasity BOOKER Histology tonsillectomy Jessica BOOKER History of hernia repair Izabella BOOKER Plan of Treatment Date Care Activity Detail Author Start: 2030 Zoster Vaccines (1 o f 2) Zoster Vaccines (1 of 2) [facility] Start: 01-02-2027 Screening for malignant neoplasm of cervix [facility] Start: 12-23-2026 Diabetes mellitus screening Diabetes Screening [facility] Start: 01-09-2026 Screening for malignant neoplasm of breast Mammogram 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 [address] [place] [id number] [facility] Start: 01-12-2025 End: 01-12-2025 Patient encounter procedure [facility] Comment on above: Arrived Start: 01-12-2025 End: 03-14-2026 MG Breast - bilateral Diagnostic Bilateral diagnostic mammogram Imaging Routine Breast pain, left Expected: 01/12/2025 (Approximate), Expires: 03/14/2026 [facility] Comment on above: Expected: 01/12/2025 (Approximate), Expires: 03/14/2026 Start: 01-12-2025 End: 07-12-2025 US Pelvis US Pelvis w/ TV Imaging Routine Pelvic pain in female Expected: 01/12/2025, Expires: 07/12/2025 [facility] Comment on above: Expected: 01/12/2025 , Expires: 07/12/2025 Start: 01-10-2025 Screening for malignant neoplasm of breast Mammogram [facility] Start: 01-05-2025 Influenza vaccination Influenza Vacc ine (#1) [facility] Start: 01-06-2024 COVID-19 Vaccine ( season) COVID-19 Vaccine () [facility] Start: 01-06-2024 Influenza vaccination U [facility] Start: 01-03-2024 End: 01-03-2024 Patient encounter procedure 01/03/2024 3:00 PM EDT Office Visit [facility] [address] [address] Sherri Reynolds PA [address] [place] [address] Arrived [facility] Comment on above: Arrived Start: 01-03-2024 End: 03-04-2025 MG Breast - bilateral Screening Bilateral screening mammogram Imaging Routine Breast cancer screening by mammogram Expected: 01/03/2024 (Approximate), Expires: 03/04/2025 [facility] Work Phone: Comment on above: Expected: 01/03/2024 (Approximate), Expires: 03/04/2025 Start: 11-28-2023 End: 11-28-2023 Patient encounter procedure 11/28/2023 2:00 PM EDT Office Visit [facility] [address] [place] [phone] Joseph Soriano DO [address] [place] [address] [facility] Start: 01-05-2023 COVID-19 Vaccine ( season) COVID-19 Vaccine () [facility] Start: 08-31-2022 [facility] Start: 08-28-2022 Hospital admission [facility] Start: 2020 Screening for malignant neoplasm of breast Mammogram [facility] Start: 10-18-2018 Varicella vaccination Varicell a Vaccines (1 of 2 - 13+ 2-dose series) [facility] Start: 2010 Screening for malignant neoplasm of cervix [facility] Start: 2002 DTaP/Tdap/Td Vaccine s (2 - Tdap) DTaP/Tdap/Td Vaccines (2 - Tdap) [facility] Start: 2001 Screening for malignant neoplasm of cervix [facility] Start: 1998 Diabetes mellitus screening Diabetes Screening [facility] Start: 1998 Hepatitis C screening Hepatitis C Sc reening [facility] Start: 1986 Pneumococcal Vaccine : Pediatrics (0 to 5 Years) and At-Risk Patients (6 to 64 Years) (1 of 2 - PCV) Pneumococcal Vaccine: Pediatrics (0 to 5 Years) and At-Risk Patients (6 to 64 Years) (1 of 2 - PCV) [facility] Start: 1980 IPV Vaccines (2 of 3 - 4-dose series) IPV Vaccines (2 of 3 - 4-dose series) [facility] Start: 1980 HIV screening HIV Screening [facility] Start: 1980 Lipid panel Lipid Panel [facility] Start: 1980 Yearly Adult Physical Yearly Adult P hysical [facility] End: 12-24-2023 Continuous Pulse oximetry, In Phase 1 Continuous Pulse oximetry, In Phase 1 Respiratory Care Routine Continuous until discontinued starting 12/24/2023 [facility] Work Phone: Comment on above: Continuous until dis continued starting 12/24/2023 End: 12-24-2023 Incentive spirometry Instruct Incentive spirometry Instruct Respiratory Care Routine Once for 1 Occurrences starting 12/24/2023 until 12/24/2023 [facility] Service Area Work Phone: Comment on above: Once for 1 Occurrenc es starting 12/24/2023 until 12/24/2023 Patient Education Depression, Ad ult (DC) [facility] DC Instructions [facility] Work Phone: Patient referral [facility] Work Phone: Surgical pathology study [facility] Service Area Work Phone: Comment on above: Release Upon Orderin g for 1 Occurrences starting 12/24/2023, 1 completed THIN PREP TIS PAP AN D HR HPV DNA THIN PREP TIS PAP AND HR HPV DNA Pathology and Cytology Routine Well woman exam with routine gynecological exam Ordered: 01/03/2024 [facility] [employer] Comment on above: Ordered: 01/03/2024 THIN PREP TIS PAP AN D HR HPV DNA THIN PREP TIS PAP AND HR HPV DNA Pathology and Cytology Routine Well woman exam with routine gynecological exam Ordered: 01/12/2025 [facility] [employer] Work Phone: Comment on above: Ordered: 01/12/2025 Immunizations Immunization Date Immunization Notes Care Provider [facility] 06-02-2020 SARS-CoV-2 (COVID-19 ) mRNA-[address] [facility] 05-05-2020 SARS-CoV-2 (COVID-19 ) mRNA-1273 vaccine Gaspar SALAM [facility] 03-25-2020 influenza virus vaccine, unspecified formulation Sherri LARKIN Work Phone: [facility] 09-20-2018 hepatitis A vaccine, adult dosage Gaspar SALAM [facility] 09-20-2018 measles, mumps and rubella virus vaccine Gaspar SALAM [facility] 04-16-2017 hepatitis B vaccine, adult dosage Gaspar SALAM [facility] 11-08-2016 hepatitis B vaccine, adult dosage Gaspar SALAM [facility] 10-04-2016 hepatitis B vaccine, adult dosage Gaspar SALAM [facility] 1980 poliovirus vaccine, unspecified formulation Denisse Chiang MD Work Phone: [facility] Work Phone: NEGATED: Highlighted row has not occurred!07-09-2023 influenza virus vaccine, unspecified formulation Melissa Rivera [facility] NEGATED: Highlighted row has not occurred!07-06-2022 influenza virus vaccine, unspecified formulation Melissa Rivera [facility] NEGATED: Highlighted row has not occurred!06-13-2021 influenza virus vaccine, unspecified formulation Chasity BOOKER [facility] Payers Date Payer Category Payer Private Health Insurance adb [id number] 2021 Blue Cross Blue Shield BCBS [id number] 2021 Unknown [id number]. [id number]. [id number] 2017 Unknown [id number] 2016 Unknown [id number] 1980 Unknown [id number] 2.16.840.1.514483.3.579.2. 593 1980 Unknown [id number] 2.16.840.1.876692.3.579.2. 593 1980 Unknown [id number] 2.16.840.1.687123.3.579.2. 593 1980 Unknown [id number] 2.16.840.1.180676.3.579.2. 593 1980 Unknown [id number] 2.16.840.1.315703.3.579.2. 593 1980 Unknown [id number] 2.16.840.1.807328.3.579.2. 593 1980 Unknown [id number] 2.16.840.1.465754.3.579.2. 593 1980 Unknown [id number] 2.16.840.1.356847.3.579.2. 593 1980 Unknown [id number] 2.16.840.1.309272.3.579.2. 124 1980 Unknown [id number] 2.16.840.1.172252.3.579.2. 1244 1980 Unknown [id number] 2.16.840.1.024166.3.579.2. 1244 1980 Unknown [id number] 2.16840.1.002286.3.579.2. 1244 1980 Unknown [id number] 2.16.840.1.420258.3.579.2. 1244 1980 Unknown [id number] 2.16.840.1.624698.3.579.2. 1242 1980 Unknown [id number] 2.16.840.1.768201.3.579.2. 1242 1980 Unknown [id number] 2.16840.1.008890.3.579.2. 1243 1980 Unknown [id number] 2.16.840.1.191019.3.579.2. 1243 1980 Unknown [id number] 2.16.840.1.901625.3.579.2. 1243 1980 Unknown [id number] 2.16.840.1.546585.3.579.2. 727 1980 Unknown [id number] 2.16.840.1.939799.3.579.2. 727 1980 Unknown [id number] 2.16.840.1.299174.3.579.2. 727 1980 Unknown [id number] 2.16.840.1.318205.3.579.2. 727 1980 Unknown [id number] 2.16.840.1.175415.3.579.2. 727 1959 [facility] [id number] 2.16.840.1.217892.19 1959 Self-pay [id number] Unknown Self Pay [id number] Unknown [id number] 2.16.840.1.674732.3.579.2. 531 Social History Date Type Detail Facility Start: 10-10-2019 End: 01-15-2023 Tobacco smoking status PRIS Never smoked tobacco (finding) [facility] Start: 1980 Sex Assigned At Female [facility] Start: 12-24-2023 End: 01-06-2025 Sex Assigned At [facility] Other Tobacco smoking status Never [facility] Tobacco smoking stat us PRIS Tobacco smoking consumption unknown [facility] Work Phone: Start: 1980 Sex assigned at Not on file [facility] Work Phone: Start: 09-29-2023 End: 01-22-2024 Exposure to SARS-CoV-2 (event) Not sure [facility] Start: 11-28-2023 Tobacco use and exposure Smokeless tobacco non-user [facility] Work Phone: Start: 12-24-2023 End: 01-22-2024 Alcoholic beverage intake Current drinker of alcohol (finding) [facility] Work Phone: Start: 12-24-2023 End: 01-06-2025 Alcoholic beverage intake [facility] Work Phone: Start: 12-13-2023 Alcohol Comment rarely [facility] Work Phone: Start: 01-03-2024 End: 01-12-2025 Alcoholic beverage intake Lifetime non-drinker (finding) [facility] Start: 11-19-2023 Gender identity Identifies as female gender (finding) [facility] Sexual Orientation [facility] Start: 07-25-2018 Sex Female (finding) Abran Torrezus [facility] Medical Equipment Procedure Code Equipment Code Equipment Origin al Text Equipment Identifier Dates Cervical total d isc replacement prosthesis, sterile ([id number] [facility] Start: 10-10-2019 Goals Date Patient Goal Desired Activity /State Functional Status Date Assessment Result Facility 09-24-2024 Functional Status N/A [facility] 09-25-2023 Functional Status N/A [facility] 09-10-2023 Functional Status N/A [facility] 07-11-2023 Functional Status N/A [facility] 08-31-2022 Functional status Patient at Baseline [facility] Work Phone: Mental Status Date Assessment Result Facility 08-31-2022 Cognitive function Cognitive [facility] Patient at Baseline [facility] Work Phone: Clinical Notes 07-21-2021 to 01-12-2025 Cintia Franco NP - 01/12/2025 3:00 PM Elsy Chiang MD - 01/22/2024 3:40 PM EDTLabCHAYA Palomo - 01/03/2024 3:00 PM EDTDischarge Francisco Javier Chiang MD - 12/24/2023 1:30 PM EDT Note Date & Type Note Facility 01-12-2025 History of Presen t illness Narrative Reason for Appointment: Patient ID: Ramy Martinez is a 44 y.o. female who presents for Well Women Visit Patient presents today for Annual Exam. MEDICATIONS No current outpatient medications ALLERGIES No Known Allergies PROBLEMS Active Ambulatory Problems Diagnosis Date Noted No Active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
[2025-01-15 14:09] LABS: Age Gdln ACOG Testing Note (.); IGP, Aptima HPV, rfx 16/18,45 Note (.)
== END 2025-01-12 21:11 | disposition home or self-care (01) ==
LOC: LAB 21:10
PROVIDERS: PCP Family Medicine; Visit Provider Nurse Practitioner Family
DX: Z01.419 Encounter for gynecological examination (general) (routine) without abnormal findings (principal)
CPT/HCPCS: 87624; 88175

== ENCOUNTER 2025-01-29 15:46 | Outpatient (OUT) | payer BC, SELFPAY ==
--- NOTE | 2025-01-29 | US_ITS ---
[address] [address] Patient Name: RAMY MARTINEZ MRN: [id number] date: 1980 Sex: F Assigned Patient Location: US Current Patient Location: US Accession/Order Number: [id number] Exam Date: 01/29/2025 16:04 Report Date: 01/29/2025 20:30 At the request of: FLORA DIETZ Procedure: US pelvis w/ transvaginal Transvaginal and transabdominal pelvic ultrasound INDICATION: Pelvic pain in a female for 4 months COMPARISON: None FINDINGS: Uterus anteverted and retroflexed. Uterus measures 7.6 x 4.4 x 4.2 cm. Multiple nabothian cysts within cervix. Endometrial thickness 4.1 mm. Right ovary 2.4 x 1.8 x 1.4 cm in size. Unremarkable. Unremarkable venous and arterial flow to the right ovary. Left ovary is not visualized. Obscured by bowel gas US/US pelvis w/ transvaginal IMPRESSION: Nonvisualization left ovary. Otherwise physiologic findings identified. Impression dictated by: Jersey Bruno M.D. 01/29/2025 8:30 PM Dictation Location: [place] [address] Electronically authenticated by: [id number] Y Date: 01/29/2025 20:30
--- OUTSIDE RECORDS SUMMARY | 2025-01-29 15:51 | XMS_ITS | CCD ---
Author Organization [facility] Care Team Providers Care Dump Worker Name Role Phone ABERRA, JOSEFINA Unavailable Unavailable HOUSE, JUDITH P Unavailable Unavailable HOUSE, JUDITH P Unavailable Unavailable ABERRA, JOSEFINA Unavailable Unavailable HOUSE, JUDITH P Unavailable Unavailable HOUSE, JUDITH P Unavailable Unavailable HOUSE, JUDITH P Unavailable Unavailable LI, NA Unavailable Unavailable LI, NA Unavailable Unavailable SCOTT, JOSEFINA Unavailable Unavailable MD Yaquelin Perez Primary Care Provider [phone] MD Reddy Dewitt Attending Provider [phone] Reddy Dewitt Unavailable Yaquelin Perez Primary Care Physician [phone] CHASITY BOOKER Admitting Unavailable CHASITY BOOKER Attending Unavailable CHRIS ., DR JAMISON Primary Care Unavailable CHASITY BOOKER Consulting Unavailable LUIS ., DR CHASE Admitting Unavailable LUIS ., DR CHASE Attending Unavailable HOY ., DR JAMISON Primary Care Unavailable LUIS ., DR CHASE Consulting Unavailable LUIS ., DR CHASE Admitting Unavailable LUIS ., DR CHASE Attending Unavailable HOY ., DR JAMISON Primary Care Unavailable AMARILLO, DR KRYSTAL Pelaez Consulting Unavailable LUIS ., [...] Yaquelin Perez MD Primary Care Provider [phone] Tyler Roach Attending Unavailab Tyler Martinez Admitting [...] Unavailable Unavailable Primary Care Provider Unavailabl e Miguel, Melissa Milleral Attending Unavaila ble Sarmini, Melissa Talavera Attending Unavaila ble Sarmini, Melissa Talal Referring Unavaila ble Yolandamini, Melissa Talal Attending Unavaila ble Sarmini, Torres Talal Admitting Unavaila ble Sarmini, Torres Talal Attending Unavaila ble Sarmini, Melissa Talal Attending Unavaila YOLANDE Deutsch Attending Unavailable LOLI PACHECO Attending Unavailable FLORA FRANCO Attending Unavailable Allergies Allergy Classification Reported Allergen(s) Allergy Type Date of Onset Reaction(s) Facility (9 sources) benzonatate; Translations: [benzonatate] Drug Allergy 5 Eruption of skin (disorder), Swelling (finding), Swelling (morphologic abnormality) [facility] (2 sources) benzonatate; Translations: [Di Crespo] Drug Allergy [facility] Medications Current Medications Medication Drug [...] / thiamine 0.0333 mg/ml / vitamin b12 0.341469 mg/ml / zinc sulfate 0.333 mg/ml oral [...] qAM, # 120 cap(s), Refills(s) 6, Pharmacy: [facility], 166, cm, 09/25/23 14:32:00 EDT, Height/Length Dosing, 79, kg, 09/25/23 14:32:00 EDT, Weight Dosing Start Date: 02/01/24 Status: Ordered Quantity: 120.0 Unit: cap(s) Repeat number: 7 Start: 08-28-2022 take 1 capsule by [facility] once daily in the morning Mesalamine (Apriso) 0.375 gram capsule,extended release 24hr Active 0.375 GM PO Every morning August 28, 2022 12:00am Start: 07-06-2022 End: 09-29-2023 take 4 capsules by mouth once daily in the morning Apriso 0.375 g oral capsule, extended release 1.5 gm = 4 cap(s), Oral, qAM, X 90 day(s), # 360 cap(s), Refills(s) 4, Pharmacy: [facility] #[id number], 166, cm, 07/06/22 13:48:00 EST, Height/Length Dosing, [...] 1 (one) time per week in the 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 Active riboflavin, selam min B2, (VITAMIN B-2 ORAL) Take by mouth 1 (one) time per week in the 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 Suspended traZODone hydrochloride 50 mg oral [...] Date: 09/24/24 Status: Ordered Repeat number: 1 Sugvepc-Zbdf-Zbswo -Oreg-Capryl (1 source) Start: 08-28-2022 take 1 capsule by mouth once daily Qdlqozy-Abss-Yt iuw-Wlxm-Fsrnsb Active 1 CAP PO Daily August 28, [...] daily Venlafaxine Active 37.5 MG PO Daily August 31, 2022 12:00am End: 01-12-2025 take [...] follow instructions per packaging and physician's handout, [facility], 166, cm, 09/24/24 8:26:00 EDT, Height/Length [...] months, # 26 cap(s), Refills(s) 0, Pharmacy: [facility] #[id number], 166, cm, 07/11/23 8:09:00 EST, Height/Length Dosing, [...] 10-20-2024 Episodic Other aftercare (1 source) Other snf (current) drug therapy; Translations: [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 [facility] Comment on above: TESTS RESULT FLAG UN ITS REF RANGE LAB Clinician Provided Cytology Information Source.............Cervix;Endocervix No. of containers..01 ThinPrep Vial Age Algo ACOG Amirah... 01 FLAG LEGEND: L-Low Normal,H-High Normal,LL-Alert Low,HH-Alert High <-Panic Low,>-Panic High,A-Abnormal,AA-Critical Abnormal Performed at: 01 =G [facility] [address] Zainab Mckeon MD, HPV APTIMA Negative Negative [facility] Comment on above: This nucleic acid am plification test detects fourteen high- risk HPV types (16,18,31,33,35,39,45,51,52,56,58,59,66,68) without differentiation. Performed at: =G - [facility] [address], [place] [id number] Axle Turner: Zainab Mckeon MD, Phone: [phone] Performed at: - [facility], [place] [id number] Axle Turner: Zainab Mckeon MD, Phone: [phone] IGP, APTIMA HPV, RFX 16/18,45 Note . [facility] Comment on above: TESTS RESULT FLAG UN ITS REF RANGE LAB DIAGNOSIS: 02 NEGATIVE FOR INTRAEPITHELIAL LESION OR MALIGNANCY. Specimen adequacy: 02 Satisfactory for evaluation. Endocervical and/or squamous metaplastic cells (endocervical component) are present. Performed by: 02 Natalie Starks [employer] (ASCP) . 02 Note: Note 02 The [...] Low,>-Panic High,A-Abnormal,AA-Critical Abnormal Performed at: [address] [facility] [address] [address] Zainab Mckeon MD, BRUSH-SPATULA CERVIX ENDOCERVIX [facility] MM TOMOSYNTHESIS SCREENING B Ion 01-09-2025 [facility] [address] [place] [address] Mammography Report Signed Patient: RAMY MARTINEZ MR#: [id number] : 1980 Acct:[id number] Age/Sex: 44 / F ADM Date: 01/09/25 Loc: MAMMO Attending Dr: Sherri Reynolds Ordering Physician: Sherri Reynolds Results: Date of Service: 01/09/25 Follow Up: Procedure(s): MM tomosynthesis screening BI Accession Number(s): [id number] cc: Sherri Reynolds; Yaquelin Perez M.D. Patient Name: RAMY MARTINEZ MR#: [id number] : 1980 Exam Date: 01/09/2025 Ordering Doctor: [...] cancer at age 40. LOCATION: [facility] BREAST COMPOSITION: The breasts are heterogeneously dense, [...] Dictated By: Christian Hahn M.D. 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 Patient Name: RAMY MARTINEZ MR#: [id number] : 1980 Exam Date: 01/09/2025 Ordering Doctor: [...] cancer at age 40. LOCATION: [facility] BREAST COMPOSITION: The breasts are heterogeneously dense, [...] Dictated By: Christian Hahn M.D. 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: [facility] Radiology Study observation (narrative) [facility] MM TOMOSYNTHESIS SCREENING B IOrdered By: Radiologist Radiology on 01-09-2025 [facility] [employer] Work Phone: Office Visiton 12-29-2024 Follow-up visit [id number] Yonas Martinez 1980 F Date Provider Department Center 12/29/2024 [id number], ADAM GENTRY Burnett Family History Problem Relation Age of Onset Lung cancer Mother Hypertension Father Stroke Paternal Grandmother Coronary artery disease Paternal Grandmother Family Status - Relation Status Age at Mother Father Alive Paternal Grandmother Level of Service:77759 ND OFFICE/OUTPATIENT ESTABLISHED MOD MDM 30 MIN Normal [facility] Orders Onlyon 12-03-2024 Orders Only [id number] Yonas Martinez 1980 Provider Department Center 12/03/2024 [id number], BRYANT GENTRY Burnett Family History Problem Relation Age of Onset Lung cancer Mother Hypertension Father Stroke Paternal Grandmother Coronary artery disease Paternal Grandmother Family Status - Relation Status Age at Mother Father Alive Paternal Grandmother Normal [facility] Gastroenterology Office/Clin ic Noteon 11-06-2024 Gastroenterology Office/Clinic [...] endoscopic remission IPamela, personally scribed for Melissa Rivera on 11/05/2024 08:39:34. . Follow-up With When Contact Information Miguel HAQUE, Melissa Talavera, ABDIAS, MED In 1 year [address], [address] [phone] Additional Instructions: Problem List/Past Medical History Ongoing [...] 09/06/2017 Ne (more content not included)... [facility] Comment on above: Result Comment: Elec tronically Signed By: Melissa Rivera MD\.br\Date and Time Signed: 11/06/24 09:41 EDT\.br\Electronically Co-Signed By: Pamela Millan MA\.br\Date and Time Co-Signed: 11/05/24 08:46 EDT Ambulatory Visit Summaryon 0 11-05-2024 Ambulatory Visit Summary Ambulatory Visit Summary RAMY MARTINEZ :1980 Visit Date:11/05/2024 Ambulatory Visit Instructions Your Diagnosis Chronic pancolonic ulcerative colitis Your Care Team Attending Physician - Miguel [...] Miguel HAQUE, Melissa Talavera Where: [facility] [address] [address]- You Need to Schedule the Following Appointments Follow Up with Miguel HAQUE, Melissa Talavera, GAS, MED When: In 1 year Where: [address], [address] [phone] Medications What How Much When Instructions Unchanged [...] signed up for this yet, please contact [employer] at [phone] to get signed up today. Language Information Language assistance services are available as needed. [facility] Reminderson 10-21-2024 Reminders Reminders From: Penny Saldivar MA S To: [facility] - Reminders/Recalls; Sent: 10/21/2024 11:48:28 EDT Show up: 09/04/2025 11:48:00 EDT Subject: colon recall Due Date/Time: 10/07/2025 11:48:00 EDT Reminder/Recall [address] Rivera 10/07/24 [facility] Office Visiton 10-20-2024 Follow-up visit [id number] Yonas Martinez Jacqueline 1980 F Date Provider Department Center 10/20/2024 YOLANDE MARTEL [facility] Family History Problem Relation Age of Onset Lung cancer Mother Hypertension Father Stroke Paternal Grandmother Coronary artery disease Paternal Grandmother Family Status - Relation Status Age at Mother Father Alive Paternal Grandmother Level of Service:80108 ND OFFICE/OP CONSLTJ NEW/EST PT MOD MDM 40 MINUTES Normal [facility] Surgical Pathology Reporton 10-10-2024 Surgical Pathology Report [address] [address]- Surgical Pathology Report Collected Date/Time: 10/07/2024 10:33 [...] dimension, totally submitted in one cassette. () [facility] Microscopic Description Microscopic examination performed unless gross only specified. Quality was accessed and acceptable. This report was transcribed using voice recognition technology and might contain unintended computerized janitorial maintenance worker errors. [facility] Comment on above: Performed By: #### 4 [id number] #### [facility] [address] [place] [address] Ambulatory Visit Summaryon 0 09-24-2024 Ambulatory Visit [...] so we will place a referral to [facility] Rheumatology. 2. Rectal prolapse (K62.3: Rectal prolapse) referral placed to colorectal at [facility] Colonoscopy 09/10/23: Impression and Plan 1. [...] can disc (more content not included)... [facility] Comment on above: Result Comment: Elec [...] containers..01 ThinPrep Vial Age Eyal BEARDEN Amirah... 30 FLAG LEGEND: L-Low Normal,H-High Normal,LL-Alert Low,HH-Alert High <-Panic Low,>-Panic High,A-Abnormal,AA-Critical Abnormal Performed at: 01 =[address] [address] Zainab Mckeon MD, HPV APTIMA Negative Negative [facility] Comment on above: This nucleic acid am plification test detects fourteen high- risk HPV types (16,18,31,33,35,39,45,51,52,56,58,59,66,68) without differentiation. Performed at: =[address] [id number] Axle Turner: Zainab Mckeon MD, Phone: [phone] Performed at: [address] [id number] Axle Turner: Zainab Mckeon MD, Phone: [phone] IGP, APTIMA HPV, RFX 16/18,45 Note . [facility] Comment on above: TESTS RESULT FLAG U NITS REF RANGE LAB DIAGNOSIS: 02 NEGATIVE FOR INTRAEPITHELIAL LESION OR MALIGNANCY. Specimen adequacy: 02 Satisfactory for evaluation. No endocervical component is identified. Performed by: 02 Pamela Cabrera Electric Truck Driver (ASCP) . 02 Note: Note 02 The [...] Low,>-Panic High,A-Abnormal,AA-Critical Abnormal Performed at: [address] [address] Zainab Mckeon MD, BRUSH-SPATULA CERVIX ENDOCERVIX [employer] Glucose Test strip manual (B ld) [Mass/Vol]on 12-24-2023 Glucose [Mass/Vol] 99 mg/dL 74 - 99 mg/dL [facility] Interpretation and review of laboratory results Normal [facility] Glucose [Mass/Vol] 99 mg/dL Normal 74-99 [facility] Comment on above: Performed By: #### 2 341-6 #### SABRINA GERMAN ([id number]) [facility] ([facility]) [address] [place] [address] HCG ( test) Denisha mock Ql (U)Ordered By: Josseline Spring on 12-24-2023 HCG ( test) Ql (U) Negative NEGATIVE [facility] Interpretation and review of laboratory results Normal [facility] HCG ( test) Denisha d Ql (U)on 12-24-2023 HCG ( test) Ql (U) Negative Normal NEGATIVE [facility] Comment on above: Performed By: #### 8 0384-1 #### SABRINA GERMAN ([id number]) [facility] ([facility]) [address] [place] [address] Basic metabolic 2000 panelon 12-13-2023 Anion gap [Moles/Vol] 12 mmol/L Normal 10-20 [facility] Comment on above: Performed By: #### 3 084-1 #### KADE BAILEYTZER L ([id number]) [facility] ([facility]) [address] [place] [address] Calcium [Mass/Vol] 10.2 mg/dL Normal 8.6-10.[address] [facility] Comment on above: Performed By: #### 3 084-1 #### KADE BOURNEMOTZER L ([id number]) [facility] ([facility]) [address] [place] [address] Chloride [Moles/Vol] 104 mmol/L Normal 98-107 [facility] Comment on above: Performed By: #### 3 084-1 #### KADE BOURNEMOTZER L ([id number]) [facility] ([facility]) [address] [place] [address] CO2 [Moles/Vol] 30 mmol/L Normal 21-32 [facility] Comment on above: Performed By: #### 3 084-1 #### KADE SCHMOTZER L ([id number]) [facility] ([facility]) [address] [place] [address] Creatinine [Mass/Vol] 0.66 mg/dL Normal 0.50-1.05 [facility] Comment on above: Performed By: #### 3 084-1 #### KADE BOURNEMOTZER L ([id number]) [facility] ([facility]) [address] [place] [address] GFR/1.73 sq M.predicted MDRD (S/P/Bld) [Vol rate/Area] mL/min/{1.73_m2} Normal >60 [facility] Comment on above: Result Comment: Calc ulations of estimated GFR are performed using the 2020 CKD-EPI Study Refit equation without the race variable for the IDMS-Traceable creatinine methods. https://jasn.asnjournals.org/content/early/ASN.60813 00070 Performed By: #### 3 084-1 #### KADE LORENZ L ([id number]) [facility] ([facility]) [address] [place] [address] Glucose [Mass/Vol] 117 mg/dL High 74-[address] [facility] Comment on above: Performed By: #### 3 084-1 #### KADE TIPTONER L ([id number]) [facility] ([facility]) [address] [place] [address] Potassium [Moles/Vol] 4.9 mmol/L Normal 3.5-5.3 [facility] Comment on above: Performed By: #### 3 084-1 #### KADE BOURNEMOTZER L (66034) [facility] ([facility]) [address] [place] [address] Sodium [Moles/Vol] 141 mmol/L Normal 136-[address] [facility] Comment on above: Performed By: #### 3 084-1 #### KADE BOURNEMOTZER L ([id number]) [facility] ([facility]) [address] [place] [address] Urea nitrogen [Mass/Vol] 7 mg/dL Normal 6-23 [facility] Comment on above: Performed By: #### 3 084-1 #### KADE BOURNEMOTZER L ([id number]) [facility] ([facility]) [address] [place] [address] Beta 2 glycoprotein 1 Ab IgA and IgG and IgM panel (S)on 11-28-2023 Beta 2 glycoprotein 1 IgA Qn (S) 34.2 U/mL High <20.0 [facility] Comment on above: Result Comment: Elev [...] By: #### 3 084-1 #### KADE Sandra ([id number]) [facility] ([facility]) [address] [place] [address] Beta 2 glycoprotein 1 IgG Qn (S) 2.6 U/mL Normal <20.0 [facility] Comment on above: Result Comment: Elev ated levels of IgG anti-Beta 2 Glycoprotein-I on 2 occasions at least 12 weeks apart are laboratory criteria for anti-phospholipid syndrome according to an international consensus (J Thromb Haemost 2006 4:295). Performed By: #### 3 084-1 #### KADE Sandra ([id number]) [facility] ([facility]) [address] [place] [address] Beta 2 glycoprotein 1 IgM Qn (S) 27.5 U/mL High <20.0 [facility] Comment on above: Result Comment: Elev [...] By: #### 3 084-1 #### KADE Sandra ([id number]) [facility] ([facility]) [address] [place] [address] C reactive proteinon 11-27- 024 CRP [Mass/Vol] mg/L Normal <1.00 [facility] Comment on above: Performed By: #### 1 988-5 #### KADE Sandra ([id number]) [facility] ([facility]) [address] [place] [address] Calcidiolon 11-28-2023 25-hydroxyvitamin D3 [Mass/Vol] 65 ng/mL Normal 30-100 [facility] Comment on above: Order Comment: Defic iency: < 20 ng/ml Insufficiency: 20-29 ng/ml Sufficiency: 30-100 ng/ml This assay accurately quantifies the sum of Vitamin D3, 25-Hydroxy and Vitamin D2,25-Hydroxy. Performed By: #### 1 989-3 #### KADE Sandra ([id number]) [facility] ([facility]) [address] [place] [address] Cardiolipin Ab IA Qn (S)on 0 11-28-2023 Cardiolipin IgA Qn 39.0 APL U/mL High <20.0 [facility] Comment on above: Result Comment: Elev ated levels of IgA anti-cardiolipin have not been included in the laboratory criteria for anti-phospholipid syndrome according to an international consensus (J Thromb Haemost 2006 4:295). It may be helpful in identifying subgroups of patients at risk for specific clinical manifestations of anti-phospholipid syndrome. Performed By: #### 3 180-7 #### KADE Sandra ([id number]) [facility] ([facility]) [address] [place] [address] Cardiolipin IgG IA Qn (S) 2.4 GPL U/mL Normal <20.0 [facility] Comment on above: Result Comment: Elev ated levels of IgG anti-cardiolipin on 2 occasions at least 12 weeks apart are laboratory criteria for anti-phospholipid syndrome according to an international consensus (J Thromb Haemost 2006 4:295). Performed By: #### 3 180-7 #### KADE Sandra ([id number]) [facility] ([facility]) [id number] [place] [address] Cardiolipin IgM IA Qn (S) 27.7 MPL U/mL High <20.0 [facility] Comment on above: Result Comment: Elev [...] By: #### 3 180-7 #### KADE Sandra ([id number]) [facility] ([facility]) [address] [place] [address] Complement C3on 11-28-2023 Complement C3 [Mass/Vol] 101 mg/dL Normal 87-200 [facility] Comment on above: Performed By: #### 4 485-9 #### KADE Sandra ([id number]) [facility] ([facility]) [address] [place] [address] Complement C4on 11-28-2023 Complement C4 [Mass/Vol] 14 mg/dL Normal 10-50 [facility] Comment on above: Performed By: #### 4 498-2 #### KADE Sandra ([id number]) [facility] ([facility]) [address] [place] [address] Cyclic citrullinated peptide Ab.IgGon 11-28-2023 Cyclic citrullinated peptide IgG Qn <1 Normal <3 [facility] Comment on above: Order Comment: THE [...] By: #### 3 3935-8 #### KADE Sandra ([id number]) [facility] ([facility]) [address] [place] [address] ESR Westergren method (Bld) [Velocity]on 11-28-2023 ESR (Bld) [Velocity] mm/h Normal 0-20 [facility] Comment on above: Performed By: #### 4 537-7 #### KADE Sandra ([id number]) [facility] ([facility]) [address] [place] [address] Extractable nuclear Ab panel (S)on 11-28-2023 Centromere protein B Ab Qn (S) <0.2 Normal <1.0 [facility] Comment on above: Result Comment: < 1. 0 = NEGATIVE >=1.0 = POSITIVE Performed By: #### 3 084-1 #### KADE Sandra ([id number]) [facility] ([facility]) [address] [place] [address] Chromatin Ab Qn <0.2 Normal <1.0 [facility] Comment on above: Result Comment: < 1. 0 = NEGATIVE >=1.0 = POSITIVE Performed By: #### 3 084-1 #### KADE Sandra ([id number]) [facility] ([facility]) [address] [place] [address] DNA double strand Ab Qn (S) 1.0 [IU]/mL Normal <5.0 [facility] Comment on above: Result Comment: NEGA TIVE: <= 4 IU/ML EQUIVOCAL: 5- 9 IU/ML POSITIVE: >=10 IU/ML Performed By: #### 3 084-1 #### KADE Sandra ([id number]) [facility] ([facility]) [address] [place] [address] Meryl-1 extractable nuclear Ab IA Ql (S) <0.2 Normal <1.0 [facility] Comment on above: Result Comment: < 1. 0 = NEGATIVE >=1.0 = POSITIVE Performed By: #### 3 084-1 #### KADE Sandra ([id number]) [facility] ([facility]) [address] [place] [address] Ribonucleoprotein extractable nuclear Ab IA Qn (S) 0.6 AI Normal <1.0 [facility] Comment on above: Result Comment: < 1. 0 = NEGATIVE >=1.0 = POSITIVE Performed By: #### 3 084-1 #### KADE Sandra ([id number]) [facility] ([facility]) [address] [place] [address] [place] [address] Ribosomal P Ab Qn (S) <0.2 Normal <1.0 [facility] Comment on above: Result Comment: < 1. 0 = NEGATIVE >=1.0 = POSITIVE Performed By: #### 3 084-1 #### KADE Sandra ([id number]) [facility] ([facility]) [address] [place] [address] SCL-70 extractable nuclear Ab IA Ql (S) <0.2 Normal <1.0 [facility] Comment on above: Result Comment: < 1. 0 = NEGATIVE >=1.0 = POSITIVE Performed By: #### 3 084-1 #### KADE Sandra ([id number]) [facility] ([facility]) [address] [place] [address] Sjogrens syndrome-A extractable nuclear Ab IA Qn (S) <0.2 Normal <1.0 [facility] Comment on above: Result Comment: < 1. 0 = NEGATIVE >=1.0 = POSITIVE Performed By: #### 3 084-1 #### KADE Sandra ([id number]) [facility] ([facility]) [address] [place] [address] Sjogrens syndrome-B extractable nuclear Ab IA Qn (S) <0.2 Normal <1.0 [facility] [facility] Comment on above: Result Comment: < 1. 0 = NEGATIVE >=1.0 = POSITIVE Performed By: #### 3 084-1 #### KADE Sandra ([id number]) [facility] ([facility]) [address] [place] [address] 47151 Dias extractable nuclear Ab IA Qn (S) <0.2 Normal <1.0 [facility] Comment on above: Result Comment: < 1. 0 = NEGATIVE >=1.0 = POSITIVE Performed By: #### 3 084-1 #### KADE Sandra ([id number]) [facility] ([facility]) [address] [place] [address] 25104 Dias extractable nuclear Ab+Ribonucleoprotein extractable nuclear Ab IA Ql (S) <0.2 Normal <1.0 [facility] Comment on above: Result Comment: < 1. 0 = NEGATIVE >=1.0 = POSITIVE Performed By: #### 3 084-1 #### KADE Sandra ([id number]) [facility] ([facility]) [address] [place] [address] 42559 Nuclear Abon 11-28-2023 Nuclear Ab Hep2 substrate Ql (S) Negative Normal Negative [facility] Comment on above: Result Comment: The Antinuclear Antibody (JERZY) test was performed using indirect immunofluorescence assay with HEp-2 cells slide. Performed By: #### 3 084-1 #### KADE Sandra ([id number]) [facility] ([facility]) [address] [place] [address] 23853 Proteinon 11-28-2023 Protein [Mass/Vol] 6.8 g/dL Normal 6.4-8.[address] [facility] Comment on above: Performed By: #### 2 885-2 #### KADE Sandra ([id number]) [facility] ([facility]) [address] [place] [address] 99996 Rheumatoid factoron 11-28-19 Rheumatoid factor Nephelometry Qn (S) <10 Normal 0-15 [facility] Comment on above: Performed By: #### 1 5205-8 #### KADE Sandra ([id number]) [facility] ([facility]) [address] [place] [address] 56595 SERUM PROTEIN ELECTROPHORESI S + IMMUNOFIXATIONon 11-28-2023 Albumin [Mass/Vol] 4.4 g/dL Normal 3.4-5.[address] [facility] Comment on above: Performed By: #### 3 084-1 #### KADE Sandra ([id number]) [facility] ([facility]) [address] [place] [address] 19850 ALPHA 1 GLOBULIN 0.3 g/dL Normal 0.2-0.6 [facility] Comment on above: Performed By: #### 3 084-1 #### KADE Sandra ([id number]) [facility] ([facility]) [address] [place] [address] 21176 ALPHA 2 GLOBULIN 0.5 g/dL Normal 0.4-1.1 [facility] Comment on above: Performed By: #### 3 084-1 #### KADE Sandra ([id number]) [facility] ([facility]) [address] [place] [address] 40608 BETA GLOBULIN 0.6 g/dL Normal 0.5-1.2 [facility] Comment on above: Performed By: #### 3 084-1 #### KADE Sandra ([id number]) [facility] ([facility]) [address] [place] [address] 46132 GAMMA GLOBULIN 1.0 g/dL Normal 0.5-1.4 [facility] Comment on above: Performed By: #### 3 084-1 #### KADE Sandra ([id number]) [facility] ([facility]) [address] [place] [address] 44419 IMMUNOFIXATION COMMENT Detected Normal [facility] Comment on above: Performed By: #### 3 084-1 #### KADE Sandra ([id number]) [facility] ([facility]) [address] [place] [address] 78586 PATH REVIEW - SERUM IMMUNOFIXATION SEE COMMENT Normal [facility] Comment on above: Result Comment: Revi ewed and approved by ALICE MORALES on 12/03/23 at 8:41 PM. Performed By: #### 3 084-1 #### KADE Sandra ([id number]) [facility] ([facility]) [address] [place] [address] 92503 PATH REVIEW-SERUM PROTEIN ELECTROPHORESIS SEE COMMENT Normal [facility] Comment on above: Result Comment: Revi ewed and approved by ALICE MORALES on 12/03/23 at 8:41 PM. Performed By: #### 3 084-1 #### KADE Sandra ([id number]) [facility] ([facility]) [address] [place] [address] [place], [place] [id number] PROTEIN ELECTROPHORESIS COMMENT Normal. [facility] Comment on above: Performed By: #### 3 084-1 #### KADE Sandra ([id number]) [facility] ([facility]) [address] [place] [address] [place], [place] [phone] Urateon 11-28-2023 Urate [Mass/Vol] 1.8 mg/dL Low 2.3-6.7 [facility] Comment on above: Result Comment: Linda puncture immediately after or during the administration of Metamizole may lead to falsely low results. Testing should be performed immediately prior to Metamizole dosing. Performed By: #### 3 084-1 #### KADE Sandra ([id number]) [facility] ([facility]) [address] [place] [place], [place] [id number] XR HAND 3+ VIEWS BILATERALon 11-28-2023 XR HAND 3+ VIEWS BILATERAL Interpreted By: Daniel Martins, STUDY: XR HAND 3+ VIEWS BILATERAL; ; 11/28/2023 3:12 pm INDICATION: Signs/Symptoms:r/o erosiosn or calcinosis. COMPARISON: None. ACCESSION NUMBER(S): [id number] ORDERING CLINICIAN: JOSEPH SORIANO FINDINGS: Bilateral hands, three views of each There is no fracture. There is no dislocation. There are no degenerative changes. There is no erosion or chondrocalcinosis. There is no soft tissue abnormality seen. IMPRESSION: Normal radiographs of the hands MACRO: None Signed by: Daniel Martins 11/29/2023 8:41 PM Dictation workstation: [id number] [facility] XR SACROILIAC JOINTS 3+ VIEW Son 11-28-2023 XR SACROILIAC JOINTS 3+ VIEWS Interpreted By: Daniel Martins, STUDY: XR SACROILIAC JOINTS 3+ VIEWS; ; 11/28/2023 3:12 pm INDICATION: Signs/Symptoms:r/o erosions or sacroilitis. COMPARISON: None. ACCESSION NUMBER(S): [id number] ORDERING CLINICIAN: JOSEPH MUOH FINDINGS: SI joints, three views There is no sclerosis or erosions in the SI joints. No degenerative change seen. There is no fracture. There is no dislocation. There is no lytic or sclerotic lesion. There is no soft tissue abnormality seen. IMPRESSION: Normal radiographs of the sacroiliac joints MACRO: None Signed by: Daniel Martins 11/29/2023 8:41 PM Dictation workstation: [id number] Normal [facility] Anoscopyon 10-09-2023 Denisse Chiang MD 10/09/2023 2:20 PM Anoscopy Date/Time: 10/09/2023 1:37 PM Performed by: Denisse Chiang MD Authorized by: Denisse Chiang MD Consent: Consent obtained: Verbal Consent given by: Patient Procedure details: Internal hemorrhoids: yes (Right and left posterior, large, non-bleeding and non-prolapsing on exam today) Post-procedure details: Procedure completion: Tolerated [facility] Work Phone: [facility] Work Phone: CHEMISTRYOrdered By: SYSTEM SYSTEM [...] Heme Comment on above: Result Comment: Lina fied with slide review Erythrocyte distribution width [...] on 08-29-2022 Cholesterol [Mass/Vol] 133 mg/dL 140-200 [facility] Comment on above: Chol less than 200 m g/dl low riskChol 201-239 mg/dl borderline riskChol 240 mg/dl and greater high risk Cholesterol in LDL Calc [Mas s/Vol]Ordered By: Tyler Roach on 08-29-2022 Cholesterol in LDL [Mass/Vol] 78 mg/dL 0-100 [facility] Comment on above: LDL ATP III CLASSIFI CATIONLDL less than 100 mg/dL OptimalLDL 100-129 mg/dL Near or above optimalLDL 130-159 mg/dL Borderline highLDL 160-189 mg/dL HighLDL greater than 189 mg/dL Very high Cholesterol in VLDL Calc [Ma ss/Vol]Ordered By: Tyler Roach on 08-29-2022 Cholesterol in VLDL [Mass/Vol] 12 mg/dL [facility] Serum or plasma high density lipoprotein (HDL) cholesterol measurementOrdered By: Tyler Roach on 08-29-2022 Cholesterol in HDL [Mass/Vol] 42 mg/dL 35-85 [facility] Comment on above: HDL CHOL ATP-III CLA SSIFICATION Cardiovascular RiskHDL > or equal to 60 mg/dL LOWHDL < 40 mg/dL HIGH Serum or plasma total choles terol/high density lipoprotein (HDL) cholesterol mass ratOrdered By: Tyler Roach on 08-29-2022 Cholesterol.total/Chol esterol in HDL [Mass ratio] 3.2 {ratio} <5.0 [facility] Thyrotropin [Units/volume] i n Serum or PlasmaOrdered By: Tyler Roach on 08-29-2022 TSH Qn 0.19 m[IU]/L 0.45-5.33 [facility] Thyroxine (T4) free [Mass/vo lume] in Serum or PlasmaOrdered By: Tyler Roach on 08-29-2022 Free T4 [Mass/Vol] 0.88 ng/dL 0.61-1.12 [facility] Triglyceride [Mass/volume] i n Serum or PlasmaOrdered By: Tyler Roach on 08-29-2022 Triglyceride [Mass/Vol] 63 mg/dL 0-149 [facility] Comment on above: TRIG ATP III CLASSIF ICATIONTRIG less than 150 mg/dL NormalTRIG 150-199 mg/dL Borderline highTRIG 200-500 mg/dL High TRIG greater than 500 mg/dL Very highStandard traceable to the Center for Disease Conrtrol and Prevention (CDC) test method. Vitamin D+Metabolites [Mass/ volume] in Serum or PlasmaOrdered By: Tyler Roach on 08-29-2022 Vitamin D+Metabolites [Mass/Vol] 16.0 ng/mL 30-100 [facility] Comment on above: VITAMIN D STATUS 25( [place])VITAMIN D RANGE (ng/mL) Deficient <20 Insufficient 20 to <30Sufficient 30 to 100Reference: John MF,Pasha NC, Benson LOYD, et al. Evaluation,treatment, and prevention of vitamin D deficiency; an Endocrine Society clinical practice guideline. JCEM. 2010; 96(7):1911-30. ACETAMINOPHENon 08-28-2022 Acetaminophen [Mass/Vol] ug/mL Critically low 10.0-30.0 [facility] Comment on above: Performed By: #### S ALYC, ACET #### [facility] [address] [place] [address] Dr. Deepak August AMYLASEon 08-28-2022 Amylase [Catalytic activity/Vol] 33 U/L Normal 25-115 [facility] Comment on above: Performed By: #### B MP, LIVER, LIPA, SHERRI #### [facility] [address] [place] [address] Dr. Deepak August CBC AUTO DIFFon 08-28-2022 BASO # 0.1 103/ul Normal 0.0-0.1 [facility] Comment on above: Performed By: #### B MP, LIVER, LIPA, SHERRI #### [facility] [address] [place] [address] Dr. Deepak August Basophils/100 WBC (Bld) 0.5 % Normal 0.2-2.0 [facility] Comment on above: Performed By: #### B MP, LIVER, LIPA, SHERRI #### [facility] [address] [place] [address] Dr. Deepak August EO # 0.1 103/ul Normal 0.0-0.7 [facility] Comment on above: Performed By: #### B MP, LIVER, LIPA, SHERRI #### [facility] [address] [place] [address] Dr. Deepak August Eosinophils/100 WBC (Bld) 1.1 % Normal 0.9-7.0 [facility] Comment on above: Performed By: #### B MP, LIVER, LIPA, SHERRI #### [facility] [address] [address] [address] Deepak August Erythrocyte distribution width (RBC) [Ratio] 13.3 % Normal 11.0-15.0 [facility] Comment on above: Performed By: #### B MP, LIVER, LIPA, SHERRI #### [facility] [address] [place] [address] Dr. Deepak August Hematocrit (Bld) [Volume fraction] 43.5 % Normal 36.0-48.0 [facility] Comment on above: Performed By: #### B MP, LIVER, LIPA, SHERRI #### [facility] [address] [place] [address] Dr. Deepak August Hemoglobin (Bld) [Mass/Vol] 14.7 g/dL Normal 12.0-16.0 [facility] Comment on above: Performed By: #### B MP, LIVER, LIPA, SHERRI #### [facility] [address] [place] [address] Dr. Deepak August IG # 0.04 10e3/ul Critically high 0.00-0.03 [facility] Comment on above: Performed By: #### B MP, LIVER, LIPA, SHERRI #### [facility] [address] [place] [address] Dr. Deepak August IG % 0.3 % Normal 0.0-0.5 [facility] Comment on above: Performed By: #### B MP, LIVER, LIPA, SHERRI #### [facility] [address] [place] [address] Dr. Deepak August LYMPH # 1.4 103/ul Normal 1.2-3.8 [facility] Comment on above: Performed By: #### B MP, LIVER, LIPA, SHERRI #### [facility] [address] [place] [address] Dr. Deepak August Lymphocytes/100 WBC (Bld) 11.2 % Critically low 20.5-60.0 [facility] Comment on above: Performed By: #### B MP, LIVER, LIPA, SHERRI #### [facility] [address] [place] [address] Dr. Deepak August MANUAL DIFF REQ NO Normal [facility] Comment on above: Performed By: #### B MP, LIVER, LIPA, SHERRI #### [facility] [address] [place] [address] Dr. Deepak August MCH (RBC) [Entitic mass] 29.5 pg Normal 26.7-34.0 [facility] Comment on above: Performed By: #### B MP, LIVER, LIPA, SHERRI #### [facility] [address] [place] [address] Dr. Deepak August MCHC (RBC) [Mass/Vol] 33.8 g/dL Normal 29.9-35.2 [facility] Comment on above: Performed By: #### B MP, LIVER, LIPA, SHERRI #### [facility] [address] [place] [address] Dr. Deepak August MCV (RBC) [Entitic vol] 87.2 fL Normal 81.0-99.0 [facility] Comment on above: Performed By: #### B MP, LIVER, LIPA, SHERRI #### [facility] [address] [place] [address] Dr. Deepak August MONO # 0.7 103/ul Normal 0.3-0.8 [facility] Comment on above: Performed By: #### B MP, LIVER, LIPA, SHERRI #### [facility] [address] [place] [address] Dr. Deepak August Monocytes/100 WBC (Bld) 5.8 % Normal 1.7-12.0 [facility] Comment on above: Performed By: #### B MP, LIVER, LIPA, SHERRI #### [facility] [address] [place] [address] Dr. Deepak August NEUT # 10.0 103/ul Critically high 1.4-6.5 [facility] Comment on above: Performed By: #### B MP, LIVER, LIPA, SHERRI #### [facility] [address] [place] [address] Dr. Deepak August Neutrophils/100 WBC (Bld) 81.1 % Critically high 43.0-75.0 [facility] Comment on above: Performed By: #### B MP, LIVER, LIPA, SHERRI #### [facility] [address] [place] [address] Dr. Deepak August Platelet mean volume (Bld) [Entitic vol] 10.1 fL Normal 9.5-13.5 [facility] Comment on above: Performed By: #### B MP, LIVER, LIPA, SHERRI #### [facility] [address] [place] [address] Dr. Deepak August PLT 390 103/ul Normal 150-450 [facility] Comment on above: Performed By: #### B MP, LIVER, LIPA, SHERRI #### [facility] [address] [place] [address] Dr. Deepak August RBC 4.99 106/ul Normal 4.20-5.40 [facility] Comment on above: Performed By: #### B MP, LIVER, LIPA, SHERRI #### [facility] [address] [place] [address] Dr. Deepak August WBC 12.4 103/ul Critically high 4.0-11.0 [facility] Comment on above: Performed By: #### B MP, LIVER, LIPA, SHERRI #### [facility] [address] [place] [address] Dr. Deepak August DRUG SCREEN RAPID (URINE)on 08-28-2022 AMP Negative Normal NEGATIVE [facility] Comment on above: Performed By: #### B MP, LIVER, LIPA, SHERRI #### [facility] [address] [place] [address] Dr. Deepak August BAR Negative Normal NEGATIVE [facility] Comment on above: Performed By: #### B MP, LIVER, LIPA, SHERRI #### [facility] [address] [place] [address] Dr. Deepak August [facility] Negative Normal NEGATIVE [facility] Comment on above: Performed By: #### B MP, LIVER, LIPA, SHERRI #### [facility] [address] [address] [address] Deepak August BZO Negative Normal NEGATIVE [facility] Comment on above: Performed By: #### B MP, LIVER, LIPA, SHERRI #### [facility] [address] [address] [address] Deepak August VERA Negative Normal NEGATIVE [facility] Comment on above: Performed By: #### B MP, LIVER, LIPA, SHERRI #### [facility] [address] [address] [address] Deepak August CUT-OFFS SEE BELOW Normal [facility] Comment on above: Result [...] #### B MP, LIVER, LIPA, SHERRI #### [facility] [address] [address] [address] Deepak August DRUG CUT HEADER DRUG CLASS TEST SYST EM CUT-OFF CONCENTRATIONS ARE FOLLOWS: Normal [facility] Comment on above: Performed By: #### B MP, LIVER, LIPA, SHERRI #### [facility] [address] [address] [address] Deepak August mAMP Negative Normal NEGATIVE [facility] Comment on above: Performed By: #### B MP, LIVER, LIPA, SHERRI #### [facility] [address] [address] [address] Deepak August MTD Negative Normal NEGATIVE [facility] Comment on above: Performed By: #### B MP, LIVER, LIPA, SHERRI #### [facility] [address] [address] [address] Deepak August OPI Negative Normal NEGATIVE [facility] Comment on above: Performed By: #### B MP, LIVER, LIPA, SHERRI #### [facility] [address] [address] [address] Deepak August OXY Negative Normal NEGATIVE [facility] Comment on above: Performed By: #### B MP, LIVER, LIPA, SHERRI #### [facility] [address] [address] [address] Deepak August PCP Negative Normal NEGATIVE [facility] Comment on above: Performed By: #### B MP, LIVER, LIPA, SHERRI #### [facility] [address] [address] [address] Deepak August PPX Negative Normal NEGATIVE [facility] Comment on above: Performed By: #### B MP, LIVER, LIPA, SHERRI #### [facility] [address] [address] [address] Deepak August TCA Positive Abnormal NEGATIVE [facility] Comment on above: Performed By: #### B MP, LIVER, LIPA, SHERRI #### [facility] [address] [place] [address] Dr. Deepak August THC Positive Abnormal NEGATIVE [facility] Comment on above: Performed By: #### B MP, LIVER, LIPA, SHERRI #### [facility] [address] [address] [address] Deepak August ER URINE PROFILEon 3 Bilirubin Ql (U) Negative Normal NEGATIVE [facility] Comment on above: Performed By: #### B MP, LIVER, LIPA, SHERRI #### [facility] [address] [place] [address] Dr. Deepak August Clarity (U) CLEAR Normal CLEAR [facility] Comment on above: Performed By: #### B MP, LIVER, LIPA, SHERRI #### [facility] [address] [place] [address] Dr. Deepak August Color (U) YELLOW Normal YELLOW [facility] Comment on above: Performed By: #### B MP, LIVER, LIPA, SHERRI #### [facility] [address] [address] [address] Deepak OROSCO A micrscopic examination will be performed if indicated. Normal [facility] Comment on above: Performed By: #### B MP, LIVER, LIPA, SHERRI #### [facility] [address] [address] [address] Deepak August Glucose Ql (U) Negative Normal NEGATIVE [facility] Comment on above: Performed By: #### B MP, LIVER, LIPA, SHERRI #### [facility] [address] [address] [address] Deepak August Hemoglobin Ql (U) Negative Normal NEGATIVE [facility] Comment on above: Performed By: #### B MP, LIVER, LIPA, SHERRI #### [facility] [address] [place] [address] Dr. Deepak August Ketones Ql (U) 15 mg/dl Abnormal NEGATIVE [facility] Comment on above: Performed By: #### B MP, LIVER, LIPA, SHERRI #### [facility] [address] [place] [address] Dr. Deepak August LEUKOCYTES Negative Normal NEGATIVE [facility] Comment on above: Performed By: #### B MP, LIVER, LIPA, SHERRI #### [facility] [address] [place] [address] Dr. Deepak August Nitrite Ql (U) Negative Normal NEGATIVE [facility] Comment on above: Performed By: #### B MP, LIVER, LIPA, SHERRI #### [facility] [address] [address] [address] Deepak August pH (U) 6.0 [pH] Normal 5-9 [facility] Comment on above: Performed By: #### B MP, LIVER, LIPA, SHERRI #### [facility] [address] [place] [address] Dr. Deepak August SPEC GRAVITY 1.020 Normal 1.005-<=1.02 5 [facility] Comment on above: Performed By: #### B MP, LIVER, LIPA, SHERRI #### [facility] [address] [place] [address] Dr. Deepak August UA PROTEIN Negative Normal NEGATIVE/ TRACE [facility] Comment on above: Performed By: #### B MP, LIVER, LIPA, SHERRI #### [facility] [address] [place] [address] Dr. Deepak August UR MICRO IND NOT INDICATED Normal [facility] Comment on above: Performed By: #### B MP, LIVER, LIPA, SHERRI #### [facility] [address] [place] [address] Dr. Deepak August Urobilinogen Qn (U) 0.2 {Jerod'U}/dL Normal 0.2 - 1. 0 [facility] Comment on above: Performed By: #### B MP, LIVER, LIPA, SHERRI #### [facility] [address] [place] [address] Dr. Deepak August ETHANOL (BLD ALC)on 08-29-19 ALC NOTE NOTE: 80 mg/dl is th e legal limit for a blood alcohol level Normal [facility] Comment on above: Performed By: #### B MP, LIVER, LIPA, SHERRI #### [facility] [address] [place] [address] Dr. Deepak August Ethanol [Mass/Vol] mg/dL Normal [facility] Comment on above: Performed By: #### B MP, LIVER, LIPA, SHERRI #### [facility] [address] [place] [address] Dr. Deepak August LACTATE/LACTIC ACIDon 2022 Lactate [Moles/Vol] 1.4 mmol/L Normal 0.4-2.0 [facility] Comment on above: Performed By: #### B MP, LIVER, LIPA, SHERRI #### [facility] [address] [place] [address] Dr. Deepak August LIPASEon 08-28-2022 Lipase [Catalytic activity/Vol] 47.0 U/L Critically low 73.0-393.0 [facility] Comment on above: Performed By: #### B MP, LIVER, LIPA, SHERRI #### [facility] [address] [place] [address] Dr. Deepak August LIVER PROFILEon 08-28-2022 Albumin [Mass/Vol] 4.2 g/dL Normal 3.4-5.0 [facility] Comment on above: Performed By: #### B MP, LIVER, LIPA, SHERRI #### [facility] [address] [place] [address] Dr. Deepak August Albumin/Globulin [Mass ratio] 1.2 {ratio} Normal [facility] Comment on above: Performed By: #### B MP, LIVER, LIPA, SHERRI #### [facility] [address] [place] [address] Dr. Deepak August ALP [Catalytic activity/Vol] 67 U/L Normal 46-116 [facility] Comment on above: Performed By: #### B MP, LIVER, LIPA, SHERRI #### [facility] [address] [place] [address] Dr. Deepak August ALT [Catalytic activity/Vol] 21 U/L Normal 14-59 [facility] Comment on above: Performed By: #### B MP, LIVER, LIPA, SHERRI #### [facility] [address] [place] [address] Dr. Deepak August AST [Catalytic activity/Vol] 12 U/L Critically low 15-37 [facility] Comment on above: Performed By: #### B MP, LIVER, LIPA, SHERRI #### [facility] [address] [place] [address] Dr. Deepak August BILI, CONJUGATED 0.3 mg/dL Critically high 0.0-0.2 [facility] Comment on above: Performed By: #### B MP, LIVER, LIPA, SHERRI #### [facility] [address] [place] [address] Dr. Deepak August Bilirubin [Mass/Vol] 1.4 mg/dL Critically high 0.2-1.0 [facility] Comment on above: Performed By: #### B MP, LIVER, LIPA, SHERRI #### [facility] [address] [place] [address] Dr. Deepak August Globulin (S) [Mass/Vol] 3.6 g/dL Normal [facility] Comment on above: Performed By: #### B MP, LIVER, LIPA, SHERRI #### [facility] [address] [address] [address] Deepak August Protein [Mass/Vol] 7.8 g/dL Normal 6.4-8.2 [facility] Comment on above: Performed By: #### B MP, LIVER, LIPA, SHERRI #### [facility] [address] [place] [address] Dr. Deepak August URon 08-28-2022 , QUAL Negative Normal NEGATIVE [facility] Comment on above: Performed By: #### B MP, LIVER, LIPA, SHERRI #### [facility] [address] [place] [address] Dr. Deepak August PROF CHEM 8 (BAS METB)on Anion gap [Moles/Vol] 13.5 mmol/L Normal [facility] Comment on above: Performed By: #### B MP, LIVER, LIPA, SHERRI #### [facility] [address] [address] [address] Deepak August Calcium [Mass/Vol] 9.0 mg/dL Normal 8.5-10.1 [facility] Comment on above: Performed By: #### B MP, LIVER, LIPA, SHERRI #### [facility] [address] [place] [address] Dr. Deepak August Chloride [Moles/Vol] 104 mmol/L Normal 98-107 [facility] Comment on above: Performed By: #### B MP, LIVER, LIPA, SHERRI #### [facility] [address] [address] [address] Deepak August CO2 [Moles/Vol] 23.8 mmol/L Normal 21.0-32.0 [facility] Comment on above: Performed By: #### B MP, LIVER, LIPA, SHERRI #### [facility] [address] [address] [address] Deepak August Creatinine [Mass/Vol] 0.82 mg/dL Normal 0.55-1.02 [facility] Comment on above: Performed By: #### B MP, LIVER, LIPA, SHERRI #### [facility] [address] [address] [address] Deepak August EGFR-AF BRUNEIAN >60 Normal >=60 [facility] Comment on above: Performed By: #### B MP, LIVER, LIPA, SHERRI #### [facility] [address] [address] [address] Deepak August EGFR-NON AF BRUNEIAN >60 Normal >=60 [facility] Comment on above: Performed By: #### B MP, LIVER, LIPA, SHERRI #### [facility] [address] [address] [address] Deepak August Glucose [Mass/Vol] 119 mg/dL Critically high 74-106 [facility] Comment on above: Performed By: #### B MP, LIVER, LIPA, SHERRI #### [facility] [address] [address] [address] Deepak August Potassium [Moles/Vol] 3.3 mmol/L Critically low 3.5-5.1 [facility] Comment on above: Performed By: #### B MP, LIVER, LIPA, SHERRI #### [facility] [address] [address] [address] Deepak August Sodium [Moles/Vol] 138 mmol/L Normal 136-145 [facility] Comment on above: Performed By: #### B MP, LIVER, LIPA, SHERRI #### [facility] [address] [address] [address] Deepak August Urea nitrogen [Mass/Vol] 8.0 mg/dL Normal 7.0-18.0 [facility] Comment on above: Performed By: #### B MP, LIVER, LIPA, SHERRI #### [facility] [address] [address] [address] Deepak August Urea nitrogen/Creatinine [Mass ratio] 9.8 mg/mg Normal [facility] Comment on above: Performed By: #### B MP, LIVER, LIPA, SHERRI #### [facility] [address] [place] [address] Dr. Deepak August SALICYLATEon 08-28-2022 SALICYLATE <2.8 Normal <=19.9 [facility] Comment on above: Performed By: #### S ALYC, ACET #### [facility] [address] [place] [address] Dr. Deepak August XR CHEST 1 Von [...] STELLA MCDOWELL Date: 2022-08-28 10:31 Normal [facility] FERRITINon 06-10-2022 Ferritin [Mass/Vol] 56.0 ng/mL Normal 6.2-137.0 [facility] Comment on above: Performed By: #### B MP, LIVER, LIPA, SHERRI #### [facility] [address] [place] [address] Dr. Deepak August MAGNESIUMon 06-10-2022 Magnesium [Mass/Vol] 2.2 mg/dL Normal 1.8-2.4 [facility] Comment on above: Performed By: #### Agatha , MG, PHOS #### [facility] [address] [place] [address] Dr. Deepak August PHOSPHORUSon 06-10-2022 Phosphate [Mass/Vol] 3.6 mg/dL Normal 2.6-4.7 [facility] Comment on above: Performed By: #### Agatha , MG, PHOS #### [facility] [address] [place] [address] Dr. Deepak August POTASSIUMon 06-10-2022 Potassium [Moles/Vol] 3.8 mmol/L Normal 3.5-5.1 [facility] Comment on above: Performed By: #### K , MG, PHOS #### [facility] [address] [address] [address] Deepak August VIT B12 AND FOLATEon 023 Cobalamin (Vitamin B12) [Mass/Vol] 278.0 pg/mL Normal 193.0-986.0 [facility] Comment on above: Performed By: #### B MP, LIVER, LIPA, SHERRI #### [facility] [address] [place] [address] Dr. Deepak August FOLATE 7.40 ng/mL Critically low 8.60-58.90 [facility] Comment on above: Performed By: #### B MP, LIVER, LIPA, SHERRI #### [facility] [address] [place] [address] Dr. Deepak August INSULINon 02-13-2022 Insulin 16.9 uIU/mL Normal 2.6-24.9 [facility] Comment on above: Performed By: #### B MP, LIVER, LIPA, SHERRI #### [facility] [address] [place] [address] Dr. Deepak August CBC AUTO DIFFon 02-11-2022 BASO # 0.1 103/ul Normal 0.0-0.1 [facility] Comment on above: Performed By: #### B MP, LIVER, LIPA, SHERRI #### [facility] [address] [place] [address] Dr. Deepak August Basophils/100 WBC (Bld) 1.0 % Normal 0.2-2.0 [facility] Comment on above: Performed By: #### B MP, LIVER, LIPA, SHERRI #### [facility] [address] [place] [address] Dr. Deepak August EO # 0.4 103/ul Normal 0.0-0.7 [facility] Comment on above: Performed By: #### B MP, LIVER, LIPA, SHERRI #### [facility] [address] [place] [address] Dr. Deepak August Eosinophils/100 WBC (Bld) 5.4 % Normal 0.9-7.0 [facility] Comment on above: Performed By: #### B MP, LIVER, LIPA, SHERRI #### [facility] [address] [place] [address] Dr. Deepak August Erythrocyte distribution width (RBC) [Ratio] 13.0 % Normal 11.0-15.0 [facility] Comment on above: Performed By: #### B MP, LIVER, LIPA, SHERRI #### [facility] [address] [place] [address] Dr. Deepak August Hematocrit (Bld) [Volume fraction] 40.7 % Normal 36.0-48.0 [facility] Comment on above: Performed By: #### B MP, LIVER, LIPA, SHERRI #### [facility] [address] [place] [address] Dr. Deepak August Hemoglobin (Bld) [Mass/Vol] 13.4 g/dL Normal 12.0-16.0 [facility] Comment on above: Performed By: #### B MP, LIVER, LIPA, SHERRI #### [facility] [address] [place] [address] Dr. Deepak August IG # 0.02 10e3/ul Normal 0.00-0.03 [facility] Comment on above: Performed By: #### B MP, LIVER, LIPA, SHERRI #### [facility] [address] [place] [address] Dr. Deepak August IG % 0.3 % Normal 0.0-0.5 [facility] Comment on above: Performed By: #### B MP, LIVER, LIPA, SHERRI #### [facility] [address] [place] [address] Dr. Deepak August LYMPH # 1.6 103/ul Normal 1.2-3.8 [facility] Comment on above: Performed By: #### B MP, LIVER, LIPA, SHERRI #### [facility] [address] [place] [address] Dr. Deepak August Lymphocytes/100 WBC (Bld) 23.1 % Normal 20.5-60.0 [facility] Comment on above: Performed By: #### B MP, LIVER, LIPA, SHERRI #### [facility] [address] [address] [address] Deepak August MANUAL DIFF REQ NO Normal [facility] Comment on above: Performed By: #### B MP, LIVER, LIPA, SHERRI #### [facility] [address] [place] [address] Dr. Deepak August MCH (RBC) [Entitic mass] 28.6 pg Normal 26.7-34.0 [facility] Comment on above: Performed By: #### B MP, LIVER, LIPA, SHERRI #### [facility] [address] [place] [address] Dr. Deepak August MCHC (RBC) [Mass/Vol] 32.9 g/dL Normal 29.9-35.2 [facility] Comment on above: Performed By: #### B MP, LIVER, LIPA, SHERRI #### [facility] [address] [place] [address] Dr. Deepak August MCV (RBC) [Entitic vol] 86.8 fL Normal 81.0-99.0 [facility] Comment on above: Performed By: #### B MP, LIVER, LIPA, SHERRI #### [facility] [address] [place] [address] Dr. Deepak August MONO # 0.5 103/ul Normal 0.3-0.8 [facility] Comment on above: Performed By: #### B MP, LIVER, LIPA, SHERRI #### [facility] [address] [place] [address] Dr. Deepak August Monocytes/100 WBC (Bld) 6.9 % Normal 1.7-12.0 [facility] Comment on above: Performed By: #### B MP, LIVER, LIPA, SHERRI #### [facility] [address] [place] [address] Dr. Deepak August NEUT # 4.3 103/ul Normal 1.4-6.5 [facility] Comment on above: Performed By: #### B MP, LIVER, LIPA, SHERRI #### [facility] [address] [address] [address] Deepak August Neutrophils/100 WBC (Bld) 63.3 % Normal 43.0-75.0 [facility] Comment on above: Performed By: #### B MP, LIVER, LIPA, SHERRI #### [facility] [address] [address] [address] Deepak August Platelet mean volume (Bld) [Entitic vol] 9.7 fL Normal 9.5-13.5 [facility] Comment on above: Performed By: #### B MP, LIVER, LIPA, SHERRI #### [facility] [address] [address] [address] Deepak August PLT 463 103/ul Critically high 150-450 [facility] Comment on above: Performed By: #### B MP, LIVER, LIPA, SHERRI #### [facility] [address] [place] [address] Dr. Deepak August RBC 4.69 106/ul Normal 4.20-5.40 [facility] Comment on above: Performed By: #### B MP, LIVER, LIPA, SHERRI #### [facility] [address] [address] [address] Deepak August WBC 6.8 103/ul Normal 4.0-11.0 [facility] Comment on above: Performed By: #### B MP, LIVER, LIPA, SHERRI #### [facility] [address] [address] [address] Deepak August FREE THYROXINE INDEX T7on FTI 2.33 Normal 1.30-4.50 [facility] Comment on above: Performed By: #### B MP, LIVER, LIPA, SHERRI #### [facility] [address] [place] [address] Dr. Deepak August T3U 31.0 % Normal 30.0-39.0 [facility] Comment on above: Performed By: #### B MP, LIVER, LIPA, SHERRI #### [facility] [address] [place] [address] Dr. Deepak August T4 [Mass/Vol] 7.50 ug/dL Normal 4.80-13.90 [facility] Comment on above: Performed By: #### B MP, LIVER, LIPA, SHERRI #### [facility] [address] [address] [address] Deepak August GLYCOHEMOGLOBIN A1Con 2021 ADA RECOMMENDATION SEE BELOW Normal [facility] Comment on above: Result Comment: ADA RECOMMENDED LIMIT 4.0 - 6.0 ADA THERAPEUTIC TARGET < 7.0 ACTION SUGGESTED > 7.0 Performed By: #### A 1C #### [facility] [address] [address] [address] Deepak August Glucose [Mass/Vol] 114 mg/dL Normal [facility] Comment on above: Performed By: #### A 1C #### [facility] [address] [place] [address] Dr. Deepak August HbA1c (Bld) [Mass fraction] 5.6 % Normal 4.5-6.2 [facility] Comment on above: Performed By: #### A 1C #### [facility] [address] [place] [address] Dr. Deepak August IRONon 02-11-2022 Iron [Mass/Vol] 97.0 ug/dL Normal 50.0-170.0 [facility] Comment on above: Performed By: #### B MP, LIVER, LIPA, SHERRI #### [facility] [address] [place] [address] Dr. Deepak August LIPID PROFILEon 02-11-2022 CHOL-HDL RATIO NORM SEE BELOW Normal [facility] Comment on above: Result Comment: 3.3 - 4.4 LOW RISK 4.4 - 7.1 AVERAGE RISK 7.1 - 11.0 MODERATE RISK >11.0 HIGH RISK Performed By: #### B MP, LIVER, LIPA, SHERRI #### [facility] [address] [place] [address] Dr. Deepak Augsut Cholesterol [Mass/Vol] 172 mg/dL Normal <=200 [facility] Comment on above: Performed By: #### B MP, LIVER, LIPA, SHERRI #### [facility] [address] [address] [address] Deepak August Cholesterol in HDL [Mass/Vol] 64 mg/dL Critically high 40-60 [facility] Comment on above: Performed By: #### B MP, LIVER, LIPA, SHERRI #### [facility] [address] [address] [address] Deepak August Cholesterol in LDL [Mass/Vol] 98.0 mg/dL Normal [facility] Comment on above: Performed By: #### B MP, LIVER, LIPA, SHERRI #### [facility] [address] [address] [address] Deepak August Cholesterol.total/Chol esterol in HDL [Mass ratio] 2.7 {ratio} Normal [facility] Comment on above: Performed By: #### B MP, LIVER, LIPA, SHERRI #### [facility] [address] [address] [address] Deepak August HDL NORMAL > or = 60 mg/dl - LO W CARDIOVASCULAR RISK <40 mg/dl - HIGH CARDIOVASCULAR RISK Normal [facility] Comment on above: Performed By: #### B MP, LIVER, LIPA, SHERRI #### [facility] [address] [address] [address] Deepak August LDL CALC NORMAL SEE BELOW Normal [facility] Comment on above: Result Comment: <100 mg/dl OPTIMAL 100 - 129 mg/dl NEAR OR ABOVE OPTIMAL 130 - 159 mg/dl BORDERLINE HIGH 160 - 189 mg/dl HIGH >190 mg/dl VERY HIGH Performed By: #### B MP, LIVER, LIPA, SHERRI #### [facility] [address] [address] [address] Deepak August Triglyceride [Mass/Vol] 50 mg/dL Normal <=150 [facility] Comment on above: Performed By: #### B MP, LIVER, LIPA, SHERRI #### [facility] [address] [address] [address] Deepak August VLDL CALC 10.0 mg/dL Normal [facility] Comment on above: Performed By: #### B MP, LIVER, LIPA, SHERRI #### [facility] [address] [place] [address] Dr. Deepak August PROF 14(COMP METB)on 022 Albumin [Mass/Vol] 3.9 g/dL Normal 3.4-5.0 [facility] Comment on above: Performed By: #### B MP, LIVER, LIPA, SHERRI #### [facility] [address] [place] [address] Dr. Deepak August Albumin/Globulin [Mass ratio] 1.3 {ratio} Normal [facility] Comment on above: Performed By: #### B MP, LIVER, LIPA, SHERRI #### [facility] [address] [place] [address] Dr. Deepak August ALP [Catalytic activity/Vol] 67 U/L Normal 46-116 [facility] Comment on above: Performed By: #### B MP, LIVER, LIPA, SHERRI #### [facility] [address] [place] [address] Dr. Deepak August ALT [Catalytic activity/Vol] 39 U/L Normal 14-59 [facility] Comment on above: Performed By: #### B MP, LIVER, LIPA, SHERRI #### [facility] [address] [place] [address] Dr. Deepak August Anion gap [Moles/Vol] 9.4 mmol/L Normal [facility] Comment on above: Performed By: #### B MP, LIVER, LIPA, SHERRI #### [facility] [address] [place] [address] Dr. Deepak August AST [Catalytic activity/Vol] 16 U/L Normal 15-37 [facility] Comment on above: Performed By: #### B MP, LIVER, LIPA, SHERRI #### [facility] [address] [place] [address] Dr. Deepak August Bilirubin [Mass/Vol] 0.6 mg/dL Normal 0.2-1.0 [facility] Comment on above: Performed By: #### B MP, LIVER, LIPA, SHERRI #### [facility] [address] [place] [address] Dr. Deepak August Calcium [Mass/Vol] 8.6 mg/dL Normal 8.5-10.1 [facility] Comment on above: Performed By: #### B MP, LIVER, LIPA, SHERRI #### [facility] [address] [place] [address] Dr. Deepak August Chloride [Moles/Vol] 105 mmol/L Normal 98-107 [facility] Comment on above: Performed By: #### B MP, LIVER, LIPA, SHERRI #### [facility] [address] [place] [address] Dr. Deepak August CO2 [Moles/Vol] 27.7 mmol/L Normal 21.0-32.0 [facility] Comment on above: Performed By: #### B MP, LIVER, LIPA, SHERRI #### [facility] [address] [place] [address] Dr. Deepak August Creatinine [Mass/Vol] 0.68 mg/dL Normal 0.55-1.02 [facility] Comment on above: Performed By: #### B MP, LIVER, LIPA, SHERRI #### [facility] [address] [place] [address] Dr. Deepak August EGFR-AF BRUNEIAN >60 Normal >=60 [facility] Comment on above: Performed By: #### B MP, LIVER, LIPA, SHERRI #### [facility] [address] [place] [address] Dr. Deepak August EGFR-NON AF BRUNEIAN >60 Normal >=60 [facility] Comment on above: Performed By: #### B MP, LIVER, LIPA, SHERRI #### [facility] [address] [place] [address] Dr. Deepak August Globulin (S) [Mass/Vol] 3.1 g/dL Normal [facility] Comment on above: Performed By: #### B MP, LIVER, LIPA, SHERRI #### [facility] [address] [place] [address] Dr. Deepak August Glucose [Mass/Vol] 115 mg/dL Critically high 74-106 [facility] Comment on above: Performed By: #### B MP, LIVER, LIPA, SHERRI #### [facility] [address] [place] [address] Dr. Deepak August Potassium [Moles/Vol] 4.1 mmol/L Normal 3.5-5.1 [facility] Comment on above: Performed By: #### B MP, LIVER, LIPA, SHERRI #### [facility] [address] [place] [address] Dr. Deepak August Protein [Mass/Vol] 7.0 g/dL Normal 6.4-8.2 [facility] [place] Comment on above: Performed By: #### B MP, LIVER, LIPA, SHERRI #### [facility] [address] [place] [address] Dr. Deepak August Sodium [Moles/Vol] 138 mmol/L Normal 136-145 [facility] [place] Comment on above: Performed By: #### B MP, LIVER, LIPA, SHERRI #### [facility] [address] [place] [address] Dr. Deepak August Urea nitrogen [Mass/Vol] 6.0 mg/dL Critically low 7.0-18.0 [facility] Comment on above: Performed By: #### B MP, LIVER, LIPA, SHERRI #### [facility] [address] [place] [address] Dr. Deepak August Urea nitrogen/Creatinine [Mass ratio] 8.8 mg/mg Normal [facility] Comment on above: Performed By: #### B MP, LIVER, LIPA, SHERRI #### [facility] [address] [place] [address] Dr. Deepak August TSHon 02-11-2022 TSH 0.860 uIU/mL Normal 0.358-3.740 [facility] Comment on above: Performed By: #### B MP, LIVER, LIPA, SHERRI #### [facility] [address] [place] [address] Dr. Deepak August MG MAMM SCREEN 3D FAISAL CADon 02-01-2022 MG MAMM SCREEN 3D FAISAL CAD Patient: RAMY MARTINEZ Exam Date: 02/01/2022 : 1980 Gender:F Ordering : DR RENA SMITH . Admission #: [id number] Family : Order #: [id number] CLICK HERE TO VIEW EXAM RADIOLOGY REPORT [...] cancer at age 40. LOCATION: [facility] BREAST COMPOSITION: Heterogeneously dense,which may obscure [...] Vasquez MD on 02/01/2022 at 08:53 Normal [facility] PAP ACOG PANEL 2: 30 to 65on 01-31-2022 . . Normal [facility] Comment on above: Result Comment: Perf ormed at: WB Performed By: #### B MP, LIVER, LIPA, SHERRI #### [facility] [address] [place], [place] [address] Dr. Deepak August Age Gdln ACOG Testing 30-65 Normal [facility] Comment on above: Performed By: #### B MP, LIVER, LIPA, SHERRI #### [facility] [address] [place], [place] [address] Dr. Deepak August DIAGNOSIS: Comment Normal [facility] Comment on above: Result Comment: NEGA TIVE FOR INTRAEPITHELIAL LESION OR MALIGNANCY. FUNGAL ORGANISMS MORPHOLOGICALLY CONSISTENT WITH JAY SPECIES ARE PRESENT. CELLULAR CHANGES ASSOCIATED WITH INFLAMMATION ARE PRESENT. Performed at: WB Performed By: #### B MP, LIVER, LIPA, SHERRI #### [facility] [address] [place], [place] [address] Dr. Deepak August HPV Aptima Negative Normal Negative [facility] Comment on above: Result Comment: This nucleic acid amplification test detects fourteen high-risk HPV types (16,18,31,33,35,39,45,51,52,56,58,59,66,68) without differentiation. Performed at: =G Performed By: #### B MP, LIVER, LIPA, SHERRI #### [facility] [address] [address] [address] Deepak August Methodology: Comment Normal [facility] Comment on above: Result Comment: This liquid based ThinPrep(R) pap test was screened with the use of an image guided system. Performed at: WB Performed By: #### B MP, LIVER, LIPA, SHERRI #### [facility] [address] [place] [address] Dr. Deepak August Note: Comment [facility] Comment on above: Result Comment: The Pap [...] #### B MP, LIVER, LIPA, SHERRI #### [facility] [address] [place] [address] Dr. Deepak August Performed by: Comment Normal [facility] Comment on above: Result Comment: Ness Ortiz, Electric Truck Driver (ASCP) Performed at: WB Performed By: #### B MP, LIVER, LIPA, SHERRI #### [facility] [address] [place] [address] Dr. Deepak August Specimen adequacy: Comment Normal [facility] Comment on above: Result Comment: Sati sfactory for evaluation. No endocervical component is identified. Performed at: WB Performed By: #### B MP, LIVER, LIPA, SHERRI #### [facility] [address] [place] [address] Dr. Deepak August PROF CHEM 8 (BAS METB)on Anion gap [Moles/Vol] 12.9 mmol/L Normal [facility] Comment on above: Performed By: #### B MP, LIVER, LIPA, SHERRI #### [facility] [address] [address] [address] Deepak August Calcium [Mass/Vol] 8.7 mg/dL Normal 8.5-10.1 [facility] Comment on above: Performed By: #### B MP, LIVER, LIPA, SHERRI #### [facility] [address] [place] [address] Dr. Deepak August Chloride [Moles/Vol] 105 mmol/L Normal 98-107 [facility] Comment on above: Performed By: #### B MP, LIVER, LIPA, SHERRI #### [facility] [address] [place] [address] Dr. Deepak August CO2 [Moles/Vol] 25.3 mmol/L Normal 21.0-32.0 [facility] Comment on above: Performed By: #### B MP, LIVER, LIPA, SHERRI #### [facility] [address] [place] [address] Dr. Deepak August Creatinine [Mass/Vol] 0.69 mg/dL Normal 0.55-1.02 [facility] Comment on above: Performed By: #### B MP, LIVER, LIPA, SHERRI #### [facility] [address] [place] [address] Dr. Deepak August EGFR-AF BRUNEIAN >60 Normal >=60 [facility] Comment on above: Performed By: #### B MP, LIVER, LIPA, SHERRI #### [facility] [address] [place] [address] Dr. Deepak August EGFR-NON AF BRUNEIAN >60 Normal >=60 [facility] Comment on above: Performed By: #### B MP, LIVER, LIPA, SHERRI #### [facility] [address] [place] [address] Dr. Deepak August Glucose [Mass/Vol] 114 mg/dL Critically high 74-106 [facility] Comment on above: Performed By: #### B MP, LIVER, LIPA, SHERRI #### [facility] [address] [place] [address] Dr. Deepak August Potassium [Moles/Vol] 4.2 mmol/L Normal 3.5-5.1 [facility] Comment on above: Performed By: #### B MP, LIVER, LIPA, SHERRI #### [facility] [address] [address] [address] Deepak August Sodium [Moles/Vol] 139 mmol/L Normal 136-145 [facility] Comment on above: Performed By: #### B MP, LIVER, LIPA, SHERRI #### [facility] [address] [address] [address] Deepak August Urea nitrogen [Mass/Vol] 6.0 mg/dL Critically low 7.0-18.0 [facility] Comment on above: Performed By: #### B MP, LIVER, LIPA, SHERRI #### [facility] [address] [address] [address] Deepak August Urea nitrogen/Creatinine [Mass ratio] 8.7 mg/mg Normal [facility] Comment on above: Performed By: #### B MP, LIVER, LIPA, SHERRI #### [facility] [address] [address] [address] Deepak August *HCG*POCT*DEVICEon 8 HCG.beta subunit ( test) Ql (U) Negative Normal Negative [facility] *POC GLUCOSE BATTERYon 09-03 *POC SAMPLE TYPE Capillary Blood Normal [facility] Glucose mass conc 106 mg/dL High 70-99 [facility] Comment on above: Result Comment: Liv GUNDERSON per RN: PATIENT TYPE Surgical Pathologyon 018 Surgical Pathology Surgical Pathology ReportPatient Name: RAMY MARTINEZ Rec #: [id number] Physician: LUIS GARCÍA--- Clinical History ---Preop Diagnosis: [...] developed by and are performed at [facility], [address] [place] [address]. All tests reported here, except those addressing HER2 overexpressionas a predictive marker, have not been cleared by or approved by the US Foodand Drug Administration (FDA). The laboratory is regulated under CLIA asqualified to perform high-complexity testing. The tests are used forclinical purposes. They should not be regarded as investigational or forresearch. [id number]/[id number]:09/05/2017 *Electronically Signed ByJunior Hitchcock MD, PhD09/05/2017 17:39:19Professional Interpretation performed at location: [address] [place] [address]---SPECIMEN(S) RECEIVED:---SBXA: Colon, BXB: Colon, BXC: Colon, BXD: [...] TE 1 Lab Use Only: Job ID [id number] description by: Beata Miramontes [facility] Comment on above: Performed By: #### S URGP ####[facility] [place], [place] [id number] [address] [place] [address] C Reactive Proteinon 018 C reactive protein (CRP) 3.70 mg/L Normal <10.00 [facility] Comment on above: Performed By: #### C BCDFC, CMPN, CRP ####[facility] [place], [place] [id number] [address] [place] [address] CBC,PLATELET,DIFFERENTIAL - CCLon 06-11-2017 Abs Baso 0.10 K/uL High 0.01-0.08 [facility] Comment on above: Performed By: #### C BCDFC, CMPN, CRP ####[facility] [place], [place] [id number] [address] [place] [address] Abs Eos 1.05 K/uL High 0.04-0.36 [facility] Comment on above: Performed By: #### C BCDFC, CMPN, CRP ####[facility] [place], [place] [id number] [address] [place] [address] Abs Camuy 0.72 K/uL Normal 0.24-0.86 [facility] Comment on above: Performed By: #### C BCDFC, CMPN, CRP ####[facility] [place] [id number] [place], [place] [id number] [place] [address] Basophils/100 WBC Auto (Bld) 1.0 % Normal [facility] Comment on above: Performed By: #### C BCDFC, CMPN, CRP ####[facility] [place] [address], [place] [address]CkevbgPremier Health [facility] [place] [address] DIFFERENTIAL TYPE Electronic Differential Normal [facility] Comment on above: Performed By: #### C BCDFC, CMPN, CRP ####[facility] [place] [address]VfwmmyPremier Health [facility] [place] [address] Eosinophils/100 leukocytes 10.2 % Normal [facility] Comment on above: Performed By: #### C BCDFC, CMPN, CRP ####[facility] [place] [address]JefwrhPremier Health [facility] [place] [address] Erythrocytes (RBC) 4.80 10*6/uL Normal 3.93-5.22 [facility] Comment on above: Performed By: #### C BCDFC, CMPN, CRP ####[facility] [place] [address]89[address]WqpypoPremier Health [facility] [place] [address] 60893 Erythrocytes (RBC) 13.1 % Normal 11.7-14.4 [facility] Comment on above: Performed By: #### C BCDFC, CMPN, CRP ####[facility] [place] [address] [place], [place] [id number] [address] [place] [address]14 Hematocrit (HCT) 41.8 % Normal 34.1-44.9 [facility] Comment on above: Performed By: #### C BCDFC, CMPN, CRP ####[facility] [place], [place] [id number] [address] [place] [address] 43071 Hemoglobin mass conc (Bld) 28.5 pg Normal 25.6-32.2 [facility] Comment on above: Performed By: #### C BCDFC, CMPN, CRP ####[facility] [place], [place] [id number] [address] [place] [address] Hemoglobin mass conc (Bld) 32.8 g/dL Normal 32.2-35.5 [facility] Comment on above: Performed By: #### C BCDFC, CMPN, CRP ####[facility] [place], [place] [id number] [address] [place] [address] Hemoglobin mass conc (Bld) 13.7 g/dL Normal 11.2-15.7 [facility] Comment on above: Performed By: #### C BCDFC, CMPN, CRP ####[facility] [place], [place] [id number] [address] [place] [address] IMMATURE GRANS % 0.3 % Normal [facility] Comment on above: Performed By: #### C BCDFC, CMPN, CRP ####[facility] [place], [place] [id number] [address] [place] [address] IMMATURE GRANS ABSOLUTE 0.03 K/uL Normal 0.00-0.03 [facility] Comment on above: Performed By: #### C BCDFC, CMPN, CRP ####[facility] [place], [place] [id number] [address] [place] [address] Lymphocytes 2.73 10*3/uL Normal 1.18-3.74 [facility] Comment on above: Performed By: #### C BCDFC, CMPN, CRP ####[facility] [place] [address] 14445TmwphsPremier Health [facility] [place] [address]804 Lymphocytes/100 leukocytes 26.5 % Normal [facility] Comment on above: Performed By: #### C BCDFC, CMPN, CRP ####[facility] [place] [address] 32281AmxgmuPremier Health [facility] [place], [place] [address] MCV 87.1 fL Normal 79.4-94.8 [facility] Comment on above: Performed By: #### C BCDFC, CMPN, CRP ####[facility] [place] [address] 59365QsvsayPremier Health [facility] [place] [address] 08445 Monocytes/100 leukocytes 7.0 % Normal [facility] Comment on above: Performed By: #### C BCDFC, CMPN, CRP ####[facility] [place] [address] 49636KjfzznPremier Health [facility] [place] [address] 75496 NEUTROPHIL SEGMENTED 55.0 % Normal [facility] Comment on above: Performed By: #### C BCDFC, CMPN, CRP ####[facility] [place] [address] 93012SfvkkdPremier Health [facility] [place] [address] 78681 Nucleated erythrocytes 0.0 /100 WBC Normal 0.0-0.2 [facility] Comment on above: Performed By: #### C BCDFC, CMPN, CRP ####[facility] [place] [address] 68453IyxbecPremier Health [facility] [place] [address] 16516 Platelet mean volume (PMV) 11.1 fL Normal 9.4-12.3 [facility] Comment on above: Performed By: #### C BCDFC, CMPN, CRP ####[facility] [place] [address], [place] [address] [place], [place] [id number] [address] [place] [address] Platelets 433 10*3/uL High 182-369 [facility] Comment on above: Performed By: #### C BCDFC, CMPN, CRP ####[facility] [place] [address] [place], [place] [id number] [address] [place] [address] 11133 SEGS + Bands,Absolute 5.66 K/uL Normal 1.56-6.13 [facility] Comment on above: Performed By: #### C BCDFC, CMPN, CRP ####[facility] [place] [address] [place], [place] [id number] [address] [place] [address] 17311 WBC (Leukocytes) 10.29 10*3/uL High 3.98-10.04 [facility] Comment on above: Performed By: #### C BCDFC, CMPN, CRP ####[facility] [place] [address] [place], [place] [id number] [address] [place] [address] Comprehensive Metabolic Pane [place] 06-11-2017 Alanine aminotransferase (ALT) 15 U/L Normal 9-48 [facility] Comment on above: Performed By: #### C BCDFC, CMPN, CRP ####[facility] [place] [address] [place], [place] [id number] [address] [place] [address] 57937 Albumin 4.6 g/dL Normal 3.5-5.0 [facility] Comment on above: Performed By: #### C BCDFC, CMPN, CRP ####[facility] [place] [address], [place] [address]GitwmoPremier Health [facility] [place], [place] [address] Alkaline phosphatase (ALP) 77 U/L Normal 32-126 [facility] Comment on above: Performed By: #### C BCDFC, CMPN, CRP ####[facility] [facility], [place] [address]cbbxi[address] [place], [place] [id number] [address] [place], [place] [address] Anion gap 12 mmol/L Normal 7-17 [facility] Comment on above: Performed By: #### C BCDFC, CMPN, CRP ####[facility] [place] [address] [place], [place] [id number] [address] [place] [address] 95658 Aspartate aminotransferase (AST) 14 U/L Normal 14-40 [facility] Comment on above: Performed By: #### C BCDFC, CMPN, CRP ####[facility] [place] [address] [place], [place] [id number] [address] [place], [place] [address] Bilirubin (total) 0.4 mg/dL Normal <1.5 [facility] Comment on above: Performed By: #### C BCDFC, CMPN, CRP ####[facility] [place] [address] [place], [place] [id number] [address] [place] [address] 53884 BUN/Creatinine Ratio 13 mg/mg Normal [facility] Comment on above: Performed By: #### C BCDFC, CMPN, CRP ####[facility] [place] [address] [place], [place] [id number] [address] [place] [address] 35017 Calcium 9.5 mg/dL Normal 8.6-10.5 [facility] Comment on above: Performed By: #### C BCDFC, CMPN, CRP ####[facility] [place], [place] [id number] [address] [place] [address] 41463 Chloride 104 mmol/L Normal 98-108 [facility] Comment on above: Performed By: #### C BCDFC, CMPN, CRP ####[facility] [place], [place] [id number] [address] [place] [address] 91132 CO2 27 mmol/L Normal 22-30 [facility] Comment on above: Performed By: #### C BCDFC, CMPN, CRP ####[facility] [place], [place] [id number] [address] [place] [address] 08341 Creatinine 0.68 mg/dL Normal 0.50-1.20 [facility] Comment on above: Performed By: #### C BCDFC, CMPN, CRP ####[facility] [place], [place] [id number] [address] [place] [address] 84025 eGFR (non-black) mL/min/{1.73_m2} Normal >60 [facility] Comment on above: Performed By: #### C BCDFC, CMPN, CRP ####[facility] [place], [place] [id number] [address] [place] [address] 72459 Glucose mass conc 90 mg/dL Normal 70-99 [facility] Comment on above: Performed By: #### C BCDFC, CMPN, CRP ####[facility] [place], [place] [id number] [address] [place] [address] 67300 Osmolality 288 mOsm/kg Normal 278-305 [facility] Comment on above: Performed By: #### C BCDFC, CMPN, CRP ####[facility] [place], [place] [id number] [address] [place] [address] 55955 Potassium molar conc 3.7 mmol/L Normal 3.5-5.0 [facility] Comment on above: Performed By: #### C BCDFC, CMPN, CRP ####[facility] [place], [place] [id number] [address] [place] [address] 19996 Protein 7.6 g/dL Normal 6.4-8.3 [facility] Comment on above: Performed By: #### C BCDFC, CMPN, CRP ####[facility] [place], [place] [id number] [address] [place] [address] 01723 Sodium 139 mmol/L Normal 133-143 [facility] Comment on above: Performed By: #### C BCDFC, CMPN, CRP ####[facility] [place], [place] [id number] [address] [place] [address] 45168 Urea nitrogen 9 mg/dL Normal 7-22 [facility] Comment on above: Performed By: #### C BCDFC, CMPN, CRP ####[facility] [place], [place] [id number] [address] [place] [address] 93099 Vital Signs Date Time Vital Sign Value Performing Clinician Facility 01-12-2025 15:05-0400 Body mass index (BMI) [Ratio] 34.03 kg/m2 Flora Franco TEXTILE DESIGNER Work Phone: [facility] 01-12-2025 15:05-040 Body weight 92.76 kg Flora Franco TEXTILE DESIGNER Work Phone: [facility] 01-12-2025 15:05-0400 Diastolic blood pressure 90 mm[Hg] Flora Franco TEXTILE DESIGNER Work Phone: [facility] 09-08-2025 15:05-0400 Systolic blood pressure 142 mm[Hg] Flora De La Rosaerly ERMELINDA Work Phone: [facility] 09-24-2024 08:18-0400 Blood Pressure Location Torres Yolandamini [facility] 09-24-2024 08:18-0400 Diastolic blood pressure 86 mm[Hg] Torres Sarmini [facility] 09-24-2024 08:18-0400 Heart rate 73 /min Torres Sarmini [facility] 09-24-2024 08:18-0400 Systolic blood pressure 125 mm[Hg] Torres Sarmini [facility] 01-22-2024 15:40-0400 Body height 165.1 cm Denisse Chiang MD Work Phone: [facility] 01-22-2024 15:40-0400 Body mass index (BMI) [Ratio] 29.79 kg/m2 Denisse Chiang MD Work Phone: [facility] 01-22-2024 15:40-0400 Body weight 81.19 kg Denisse Chiang MD Work Phone: [facility] 01-22-2024 15:40-0400 Diastolic blood pressure 81 mm[Hg] Denisse Chiang MD Work Phone: [facility] 01-22-2024 15:40-0400 Heart rate 76 /min Denisse Chiang MD Work Phone: [facility] 01-22-2024 15:40-0400 Systolic blood pressure 117 mm[Hg] Denisse Chiang MD Work Phone: [facility] 01-03-2024 15:07-0400 Body mass index (BMI) [Ratio] 29.64 kg/m2 Sherri LARKIN Work Phone: [facility] 01-03-2024 15:07-0400 Body weight 80.8 kg Sherri LARKIN Work Phone: [facility] 01-03-2024 15:07-0400 Diastolic blood pressure 76 mm[Hg] Sherri LARKIN Work Phone: [facility] 01-03-2024 15:07-0400 Systolic blood pressure 110 mm[Hg] Sherri LARKIN Work Phone: [facility] 12-24-2023 20:30-0400 Diastolic blood pressure 63 mm[Hg] Denisse Chiang MD Work Phone: [facility] 12-24-2023 20:30-0400 Heart rate 84 /min Denisse Chiang MD Work Phone: [facility] 12-24-2023 20:30-0400 Respiratory rate 17 /min Denisse Chiang MD Work Phone: [facility] 12-24-2023 20:30-0400 SaO2% (BldA) [Mass fraction] 99 % Denisse Chiang MD Work Phone: [facility] 12-24-2023 20:30-0400 Systolic blood pressure 110 mm[Hg] Denisse Chiang MD Work Phone: [facility] 12-24-2023 20:00-0400 Body temperature 97.2 [degF] Denisse Chiang MD Work Phone: [facility] 12-24-2023 12:43-0400 Body height 165.1 cm Denisse Chiang MD Work Phone: [facility] 12-24-2023 12:43-0400 Body mass index (BMI) [Ratio] 28.96 kg/m2 Denisse Chiang MD Work Phone: [facility] 12-24-2023 12:43-0400 Body weight 78.93 kg Denisse Chiang MD Work Phone: [facility] 10-09-2023 13:06-0400 Body height 165.1 cm Denisse Chiang MD Work Phone: [facility] 10-09-2023 13:06-0400 Body mass index (BMI) [Ratio] 29.79 kg/m2 Denisse Chiang MD Work Phone: [facility] 10-09-2023 13:06-0400 Body weight 81.19 kg Denisse Chiang MD Work Phone: [facility] 10-09-2023 13:06-0400 Diastolic blood pressure 82 mm[Hg] Denisse Chiang MD Work Phone: [facility] 10-09-2023 13:06-0400 Heart rate 84 /min Denisse Chiang MD Work Phone: [facility] 10-09-2023 13:06-0400 Systolic blood pressure 126 mm[Hg] Denisse Chiang MD Work Phone: [facility] 09-25-2023 14:27-0400 Blood Pressure Location Torres Sarmini [facility] 09-25-2023 14:27-0400 Diastolic blood pressure 80 mm[Hg] Torres Sarmini [facility] 09-25-2023 14:27-0400 Heart rate 70 /min Torres Sarmini [facility] 09-25-2023 14:27-0400 Respiratory rate 18 /min Torres Sarmini [facility] 09-25-2023 14:27-0400 Systolic blood pressure 116 mm[Hg] Torres Sarmini [facility] 09-10-2023 14:15-0400 Diastolic blood pressure 88 mm[Hg] Torres Sarmini [facility] 09-10-2023 14:15-0400 Heart rate 78 /min Torres Sarmini [facility] 09-10-2023 14:15-0400 Respiratory rate 17 /min Torres Sarmini [facility] 09-10-2023 14:15-0400 SaO2% (BldA) [Mass fraction] 100 % Torres Sarmini [facility] 09-10-2023 14:15-0400 Systolic blood pressure 137 mm[Hg] Torres Sarmini [facility] 09-10-2023 14:05-0400 Diastolic blood pressure 89 mm[Hg] Torres Sarmini [facility] 09-10-2023 14:05-0400 Heart rate 72 /min Torres Sarmini [facility] 09-10-2023 14:05-0400 Respiratory rate 16 /min Torres Sarmini [facility] 09-10-2023 14:05-0400 SaO2% (BldA) [Mass fraction] 99 % Torres Sarmini [facility] 09-10-2023 14:05-0400 Systolic blood pressure 147 mm[Hg] Torres Sarmini [facility] 09-10-2023 14:00-0400 Heart rate 75 /min Torres Sarmini [facility] 09-10-2023 14:00-0400 Systolic blood pressure 142 mm[Hg] Torres Sarmini [facility] 09-10-2023 13:49-0400 Body temperature 97.7 [degF] Torres Sarmini [facility] 09-10-2023 13:45-0400 Respiratory rate 14 /min Torres Sarmini [facility] 09-10-2023 13:40-0400 Respiratory rate 14 /min Torres Sarmini [facility] 09-10-2023 13:35-0400 Respiratory rate 13 /min Torres Sarmini [facility] 09-10-2023 11:40-0400 Blood Pressure Location Torres Sarmini [facility] 09-10-2023 11:40-0400 Body temperature 97.52 [degF] Torres Sarmini [facility] 07-11-2023 07:38-0500 Blood Pressure Location Torres Sarmini [facility] 07-11-2023 07:38-0500 Diastolic blood pressure 88 mm[Hg] Torres Sarmini [facility] 07-11-2023 07:38-0500 Heart rate 80 /min Torres Sarmini [facility] 07-11-2023 07:38-0500 Respiratory rate 18 /min Torres Sarmini [facility] 07-11-2023 07:38-0500 Systolic blood pressure 128 mm[Hg] Torres Sarmini [facility] 08-31-2022 17:05-0400 Body temperature 98.4 [degF] MD Yaquelin Perez Work Phone: [facility] 08-31-2022 17:05-0400 Diastolic blood pressure 86 mm[Hg] MD Yaquelin Perez Work Phone: [facility] 08-31-2022 17:05-0400 Heart rate 72 /min MD Yaquelin Perez Work Phone: [facility] 08-31-2022 17:05-0400 Respiratory rate 18 /min MD Yaquelin Perez Work Phone: [facility] 08-31-2022 17:05-0400 SaO2% (BldA) [Mass fraction] 100 % MD Yaquelin Perez Work Phone: [facility] 08-31-2022 17:05-0400 Systolic blood pressure 129 mm[Hg] MD Yaquelin Perez Work Phone: [facility] 08-29-2022 14:54-0400 Body height 166.37 cm MD Yaquelin Perez Work Phone: [facility] 08-28-2022 17:33-0400 Body weight 96.61 kg MD Yaquelin Perez Work Phone: [facility] 08-30-2021 10:00-0400 Body height 165.1 cm Reddy Dewitt Other [employer] Other 08-30-2021 10:00-0400 Body mass index (BMI) [Ratio] 36.61 kg/m2 Reddy Dewitt Other [employer] Other 08-30-2021 10:00-0400 Body weight 99.79 kg Reddy Dewitt Other [employer] Other Encounters Encounter Date Encounter Type Care Provider Facility Start: 11-04-2025 ambulatory [facility] Facility:[facility] Start: 01-12-2025 End: 01-12-2025 Patient encounter procedure Flora Franco NP Work Phone: [facility] Start: 01-12-2025 End: 01-12-2025 Periodic preventive med est patient 40-64yrs Flora Franco NP Work Phone: [facility] Comment on above: Pelvic pain in femal e (Primary Dx); Well woman exam with routine gynecological exam; Encounter for screening mammogram for malignant neoplasm of breast; Breast pain, left Start: 01-12-2025 End: 01-12-2025 ambulatory FLORA ASLVADOR Not Available Start: 01-12-2025 End: 01-12-2025 Bamboo flowsheet Flora Franco TEXTILE DESIGNER Work Phone: [facility] Start: 01-12-2025 End: 01-15-2025 Bamboo flowsheet Flora Franco TEXTILE DESIGNER Work Phone: [facility] Start: 01-12-2025 End: 01-15-2025 Clinisync Result Encounter Flora Franco NP Work Phone: [facility] Unsolicited Start: 01-09-2025 End: 01-09-2025 Clinisync Result Encounter Sherri LARKIN Work Phone: [facility] Unsolicited Start: 01-09-2025 End: 01-09-2025 Clinisync Result Encounter Sherri LARKIN Work Phone: [facility] Unsolicited Start: 12-29-2024 End: 12-29-2024 ambulatory LOLI [facility] Start: 11-05-2024 End: 11-05-2024 ambulatory Melissa Talal Sarmini Facility:[facility] Start: 11-05-2024 End: 11-05-2024 Patient encounter procedure Torres Talal Sarmini [facility] Start: 10-20-2024 End: 10-21-2024 ambulatory [facility] Start: 10-07-2024 End: 10-07-2024 Lab Drop off Torres Talal Sarmini [facility] Start: 10-07-2024 End: 10-07-2024 ambulatory Torres Talal Sarmini [facility] Start: 10-07-2024 End: 10-07-2024 ambulatory Melissa Rivera Facility:CD:[id number] Start: 09-24-2024 End: 09-24-2024 ambulatory Melissa Rivera Facility:[facility] Start: 09-24-2024 End: 09-24-2024 Patient encounter procedure Melissa Rivera [facility] Start: 01-22-2024 End: 01-22-2024 Postop follow up visit related to original px Denisse Chiang MD Work Phone: [facility] Comment on above: Prolapsed internal h emorrhoids (Primary Dx) Start: 01-22-2024 End: 01-22-2024 ambulatory DENISSE [facility] Start: 01-03-2024 End: 01-03-2024 [...] Start: 12-24-2023 End: 12-24-2023 ambulatory DENISSE CHIANG [facility] Start: 12-24-2023 End: 12-24-2023 Subsequent hospital visit by physician Denisse Chiang MD Work Phone: [facility] [place] Comment on above: Prolapsed internal h emorrhoids Start: 12-13-2023 End: 12-13-2023 ambulatory YAQUELIN SALCEDO [facility] Start: 12-13-2023 End: 12-13-2023 Encounter for other preprocedural examination YAQUELIN [facility] Start: 11-28-2023 End: 11-28-2023 ambulatory YAQUELIN [facility] Start: 11-28-2023 End: 11-28-2023 [facility] Start: 11-28-2023 End: 11-28-2023 ambulatory DENISSE [facility] Start: 10-24-2023 ambulatory Tyler Person acility:[facility] Start: 10-09-2023 End: 10-09-2023 Office outpatient new 30 minutes Denisse Chiang MD Work Phone: [facility] Comment on above: Rectal prolapse (Coni briseida Dx); Internal hemorrhoids Start: 10-09-2023 End: 10-09-2023 ambulatory DENISSE [facility] Start: 09-25-2023 End: 09-25-2023 Patient encounter procedure Torres Talal Sarmini [facility] Start: 09-10-2023 End: 09-10-2023 Patient encounter procedure Torres Talal Sarmini [facility] Start: 07-11-2023 End: 07-11-2023 Patient encounter procedure Torres Talal Sarmini [facility] Start: 07-11-2023 End: 07-11-2023 Patient encounter procedure Torres Talal Sarmini [facility] Start: 08-28-2022 End: 08-31-2022 Evaluation and management of inpatient MD Yaquelin Perez Work Phone: [facility] Work Phone: Start: 08-28-2022 End: 08-28-[address] YAQUELIN PEREZ . Facility:[facility] Start: 08-16-2022 ambulatory CHASITY BOOKER Facility:[facility] Start: 06-10-2022 End: 06-11-[address] NICOLLE BALL Facility:[facility] Start: 02-14-2022 Encounter for genera l adult medical examination without abnormal findings DR YAQUELIN PEREZ . [facility] Start: 02-13-2022 End: 02-14-2022 ambulatory [...] End: 01-19-2022 Patient encounter procedure Chasity BOOKER [facility] Start: 10-12-2021 End: 10-13-2021 ambulatory CHASITY BOOKER Facility:[facility] Start: 08-30-2021 End: 08-30-2021 ambulatory Reddy Dewitt Other [facility] [employer] Other Start: 08-30-2021 Office outpatient vi sit 15 minutes Reddy Dewitt [facility] Start: 08-09-2021 End: 08-09-2021 Patient encounter procedure MD Yaquelin Perez Work Phone: [facility] Start: 09-03-2017 End: 09-03-2017 Ambulatory JUDITH LEÓN [facility] Start: 06-11-2017 Ambulatory JOSEFINA CHAVEZ [facility] Start: 06-11-2017 Ambulatory JOSEFINA [facility] Procedures Date Procedure Procedure Detail Performing Clinician Start: 01-12-2025 IGP,APTIMA HPV,AGE GDLN Flora Franco [employer] Work Phone: Start: 01-09-2025 MM TOMOSYNTHESIS SCREENING BI Sherri [...] Chiang MD Work Phone: Start: 09-10-2023 Colonoscopy Torres S edgar Start: 08-09-2021 X-ray of cervical spine MD Yaquelin Perez Work Phone: Start: 08-09-2021 X-ray of lumbar spin e, four views MD Yaquelin Perez Work Phone: Start: 09-07-2017 Laparoscopic cholecystectomy Gaspar SALAM Bilateral tubal ligation Izabella monroy SALCANDACE Colonoscopy Chasity SALAM Endometrial ablation Chasity RICHARDSON Hemorrhoid operation Derian Rivera Hemorrhoids (disorder) Gaspar SALAM Histology tonsillectomy Jessica paredes SALAM History of hernia repair Izabella eliana SALAM Plan of Treatment Date Care Activity Detail Author Start: 2030 Zoster Vaccines (1 o f 2) Zoster Vaccines (1 of 2) [facility] Start: 01-02-2027 Screening for malignant neoplasm of cervix [facility] Start: 12-23-2026 Diabetes mellitus screening Diabetes Screening [facility] Start: 01-09-2026 Screening for malignant neoplasm of breast Mammogram [facility] Start: 02-10-2025 End: 02-10-2025 Patient encounter procedure 02/10/2025 1:30 PM EDT Office Visit ROSA MARIA [facility]audh[facility] OBIVAN [address] [place] [place] [id number] Flora Franco, TEXTILE DESIGNER [address] [place] [phone] ROSA MARIA [facility] Start: 01-12-2025 End: 01-12-2025 Patient encounter procedure [facility] Comment on above: Arrived Start: 01-12-2025 End: 03-14-2026 MG Breast - bilateral Diagnostic Bilateral diagnostic mammogram Imaging Routine Breast pain, left Expected: 01/12/2025 (Approximate), Expires: 03/14/2026 [facility] Comment on above: Expected: 01/12/2025 (Approximate), Expires: 03/14/2026 Start: 01-12-2025 End: 07-12-2025 US Pelvis US Pelvis w/ TV Imaging Routine Pelvic pain in female Expected: 01/12/2025, Expires: 07/12/2025 [facility] Comment on above: Expected: 01/12/2025 , Expires: 07/12/2025 Start: 01-10-2025 Screening for malignant neoplasm of breast Mammogram [facility] Start: 01-05-2025 Influenza vaccination Influenza Vacc ine (#1) [facility] Start: 01-06-2024 COVID-19 Vaccine () COVID-19 Vaccine () [facility] Start: 01-06-2024 Influenza vaccination [facility] Start: 01-03-2024 End: 01-03-2024 Patient encounter procedure 01/03/2024 3:00 PM EDT Office Visit [facility] [address] [place] [address] Sherri Reynolds PA [address] [place] [address] Arrived [facility] Comment on above: Arrived Start: 01-03-2024 End: 03-04-2025 MG Breast - bilateral Screening Bilateral screening mammogram Imaging Routine Breast cancer screening by mammogram Expected: 01/03/2024 (Approximate), Expires: 03/04/2025 [facility] Work Phone: Comment on above: Expected: 01/03/2024 (Approximate), Expires: 03/04/2025 Start: 11-28-2023 End: 11-28-2023 Patient encounter procedure 11/28/2023 2:00 PM EDT Office Visit [facility] [address] [place] [id number] Joseph Soriano DO [address] [place] [address] [facility] Start: 01-05-2023 COVID-19 Vaccine ( season) COVID-19 Vaccine () [facility] Start: 08-31-2022 [facility] Start: 08-28-2022 Hospital admission [facility] Start: 2020 Screening for malignant neoplasm of breast Mammogram [facility] Start: 10-18-2018 Varicella vaccination Varicell a Vaccines (1 of 2 - 13+ 2-dose series) [facility] Start: 2010 Screening for malignant neoplasm of cervix [facility] Start: 2002 DTaP/Tdap/Td Vaccine s (2 - Tdap) DTaP/Tdap/Td Vaccines (2 - Tdap) [facility] Start: 2001 Screening for malignant neoplasm of cervix [facility] Start: 1998 Diabetes mellitus screening Diabetes Screening [facility] Start: 1998 Hepatitis C screening Hepatitis C Sc reening [facility] Start: 1986 Pneumococcal Vaccine : Pediatrics (0 to 5 Years) and At-Risk Patients (6 to 64 Years) (1 of 2 - PCV) Pneumococcal Vaccine: Pediatrics (0 to 5 Years) and At-Risk Patients (6 to 64 Years) (1 of 2 - PCV) [facility] Start: 1980 IPV Vaccines (2 of 3 - 4-dose series) IPV Vaccines (2 of 3 - 4-dose series) [facility] Start: 1980 HIV screening HIV Screening [facility] Start: 1980 Lipid panel Lipid Panel [facility] Start: 1980 Yearly Adult Physical Yearly Adult P hysical [facility] End: 12-24-2023 Continuous Pulse oximetry, In Phase 1 Continuous Pulse oximetry, In Phase 1 Respiratory Care Routine Continuous until discontinued starting 12/24/[address] [facility] Work Phone: Comment on above: Continuous until dis continued starting 12/24/2023 End: 12-24-2023 Incentive spirometry Instruct Incentive spirometry Instruct Respiratory Care Routine Once for 1 Occurrences starting 12/24/2023 until 12/24/2023 [facility] Service Area Work Phone: Comment on above: Once for 1 Occurrenc es starting 12/24/2023 until 12/24/2023 Patient Education Depression, Ad ult (DC) [facility] Behavioral Health DC Instructions [facility] Work Phone: Patient referral [facility] Work Phone: Surgical pathology study [facility] Service Area Work Phone: Comment on above: Release Upon Orderin g for 1 Occurrences starting 12/24/2023, 1 completed THIN PREP TIS PAP AN D HR HPV DNA THIN PREP TIS PAP AND HR HPV DNA Pathology and Cytology Routine Well woman exam with routine gynecological exam Ordered: 01/03/2024 [facility] [employer] Comment on above: Ordered: 01/03/2024 THIN PREP TIS PAP AN D HR HPV DNA THIN PREP TIS PAP AND HR HPV DNA Pathology and Cytology Routine Well woman exam with routine gynecological exam Ordered: 01/12/2025 [facility] [employer] Work Phone: Comment on above: Ordered: 01/12/2025 Immunizations Immunization Date Immunization Notes Care Provider Fa [facility] 06-02-2020 SARS-CoV-2 (COVID-19 ) mRNA-1273 vaccine Gaspar SALAM [facility] 05-05-2020 SARS-CoV-2 (COVID-19 ) mRNA-1273 vaccine Gaspar SALAM [facility] 03-25-2020 influenza virus vaccine, unspecified formulation Sherri LARKIN Work Phone: [facility] [employer] 09-20-2018 hepatitis A vaccine, adult dosage Gaspar SALAM [facility] 09-20-2018 measles, mumps and rubella virus vaccine Gaspar SALAM [facility] 04-16-2017 hepatitis B vaccine, adult dosage Gaspar SALAM [facility] 11-08-2016 hepatitis B vaccine, adult dosage Gaspar SALAM [facility] 10-04-2016 hepatitis B vaccine, adult dosage Gaspar SALAM [facility] 1980 poliovirus vaccine, unspecified formulation Denisse Chiang MD Work Phone: [facility] Work Phone: NEGATED: Highlighted row has not occurred!07-09-2023 influenza virus vaccine, unspecified formulation Torres Yolandamini [facility] NEGATED: Highlighted row has not occurred!07-06-2022 influenza virus vaccine, unspecified formulation Torres Sarmini [facility] NEGATED: Highlighted row has not occurred!06-13-2021 influenza virus vaccine, unspecified formulation Chasity BOOKER [facility] Payers Date Payer Category Payer Private Health Insurance adb [id number] 2021 [facility] Shield [facility] er [id number] 2021 Unknown [id number]. 1.13.647.2. 7.3.396579.315 2017 Unknown [id number] 2016 Unknown [id number] 1980 Unknown [id number] 2.16.840.1.068823.3.579.2. 593 1980 Unknown [id number] 2.16.840.1.777546.3.579.2. 593 1980 Unknown [id number] 2.16.840.1.006297.3.579.2. 593 1980 Unknown [id number] 2.16.840.1.990809.3.579.2. 593 1980 Unknown [id number] 2.16.840.1.539692.3.579.2. 593 1980 Unknown [id number] 2.16.840.1.342522.3.579.2. 59 1980 Unknown [id number] 2.16.840.1.533722.3.579.2. 593 1980 Unknown [id number] 2.840.1.874764.3.579.2. 59 1980 Unknown [id number] 2.840.1.395596.3.579.2. 1244 1980 Unknown [id number] 2.840.1.561677.3.579.2. 1244 1980 Unknown [id number] 2.840.1.670961.3.579.2. 1244 1980 Unknown [id number] 840.1.152923.3.579.2. 1244 1980 Unknown [id number] 2.840.1.225979.3.579.2. 1244 1980 Unknown [id number] 2840.1.324697.3.579.2. 1242 1980 Unknown [id number] 2.16840.1.102696.3.579.2. 1242 1980 Unknown [id number] 2.16840.1.516087.3.579.2. 1243 1980 Unknown [id number] 2.16840.1.036679.3.579.2. 1243 1980 Unknown [id number] 2.16840.1.234289.3.579.2. 1243 1980 Unknown [id number] 2.16840.1.285186.3.579.2. 727 1980 Unknown [id number] 2.16.840.1.843470.3.579.2. 727 1980 Unknown [id number] 2.16.840.1.590879.3.579.2. 727 1980 Unknown [id number] 2.16.840.1.426458.3.579.2. 727 1980 Unknown [id number] 2.16.840.1.936100.3.579.2. 727 1980 Unknown [id number] 2.16.840.1.287097.3.579.2. 1259 1959 [facility] [id number] 2.16.840.1.446363.19 1959 Self-pay [id number] Unknown Self Pay [id number] Unknown [id number] 2.16.840.1.867122.3.579.2. 531 Social History Date Type Detail Facility Start: 10-10-2019 End: 01-15-2023 Tobacco smoking status MNIS Never smoked tobacco (finding) [facility] Start: 1980 Sex Assigned At Female [facility] Start: 12-24-2023 End: 01-06-2025 Sex Assigned At [employer] Other Tobacco smoking status Never [facility] Tobacco smoking stat us MNIS Tobacco smoking consumption unknown [facility] Work Phone: Start: 1980 Sex assigned at Not on file [facility] Work Phone: Start: 09-29-2023 End: 01-22-2024 Exposure to SARS-CoV-2 (event) Not sure [facility] Start: 11-28-2023 Tobacco use and exposure Smokeless tobacco non-user [facility] Work Phone: Start: 12-24-2023 End: 01-22-2024 Alcoholic beverage intake Current drinker of alcohol (finding) [facility] Work Phone: Start: 12-24-2023 End: 01-06-2025 Alcoholic beverage intake [facility] Work Phone: Start: 12-13-2023 Alcohol Comment rarely [facility] Work Phone: Start: 01-03-2024 End: 01-12-2025 Alcoholic beverage intake Lifetime non-drinker (finding) [facility] Start: 11-19-2023 Gender identity Identifies as female gender (finding) [facility] Sexual Orientation [facility] Start: 07-25-2018 Sex Female (finding) Counts Include [facility] Equipment Procedure Code Equipment Code Equipment Origin al Text Equipment Identifier Dates Cervical total d isc replacement prosthesis, sterile [id number] [facility] Start: 10-10-2019 Goals Date Patient Goal Desired Activity /State Functional Status Date Assessment Result Facility 09-24-2024 Functional Status N/A [facility] 09-25-2023 Functional Status N/A [facility] 09-10-2023 Functional Status N/A [facility] 07-11-2023 Functional Status N/A [facility] 08-31-2022 Functional status Patient at Baseline [facility] Work Phone: Mental Status Date Assessment Result Facility 08-31-2022 Cognitive function Cognitive [facility] Patient at Baseline [facility] Work Phone: Clinical Notes 07-21-2021 to 01-12-2025 Flora Franco NP - 01/12/2025 3:00 PM Elsy Chiang MD - 01/22/2024 3:40 PM EDTLaboratoryCHAYA Jean - 01/03/2024 3:00 PM EDTDischarge Francisco Javier [...] nursing note reviewed. Exam conducted with a motorcycle builder present. Vitals: Estimated body mass index is [...] without palpable mass. Recommend diagnostic mammogram at [facility]. No orders of the defined types were [...] by Alejandra Amanda MA on behalf of: Flora Franco NP documented in this encounter [facility] 12-29-2024 Note SUBJECTIVE Reason for Visit: Ramy [...] inhaler 2 puffs, Every 4 hours PRN gubktoikxrv-kysltahow-gnngywsg (Trelegy Ellipta) 200-62.5-25 mcg blister with device [...] any arrhythmias Str (more content not included)... [facility] 10-20-2024 Note DC Cardiology - [facility] Subjective Ramy Martinez is a [...] (four) hours if needed., Disp: , Rfl: xcplkmdthtp-admiivyfh-rdzlhchf (Trelegy Ellipta) 200-62.5-25 mcg blister with device, [...] 80, TSH 0. (more content not included)... [facility] 10-08-2024 Hospital Discharg e instructions Follow Up Care 10/08/2024 11:03:25 With:Miguel HAQUE, ABDIAS Osorio, [facility] Address: [address] [place] [address], [address] [phone] When:Within 1 Year(s) [facility] 01-22-2024 History of Presen t illness Narrative HPI Ramy Martinez is a 43 y.o. female who has a hx of pancolonic UC, which was diagnosed in 2006. She was started on humira, which caused lupus like symptoms. She also reports developing antibodies to humira. Patient was then switched to Entyvio from [id number]. She unfortunately lost insurance and stopped taking it. She is currently taking Mesalamine. She was referred by [facility], [place]. Rivera for possible rectal prolapse. 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 traZODone (Desyrel) 50 mg tablet Take [...] PM documented in this encounter [facility] Work Phone: 01-16-2024 Evaluation + Plan note Future Scheduled TestsVitamin D 25 Hydroxy 01/16/24Vitamin D 25 Hydroxy 09/24/24CBC w/ Auto Diff 09/24/24Comprehensive Metabolic Panel 09/24/[address] [facility] 01-03-2024 History of Presen [...] nursing note reviewed. Exam conducted with a motorcycle builder present. Vitals: Estimated body mass index is [...] by Kianna Cox LPN on behalf of: CHAAY Jean documented in this encounter [facility] 12-24-2023 Hospital Discharg e instructions Denisse [...] previous diet. FOLLOW-UP: Please call office at [phone] to schedule follow-up appointment for 3-4 weeks from date of surgery. documented in this encounter [facility] Work Phone: 12-24-2023 Note Formatting of this n ote is different from the original. Excisional Hemorrhoidectomy Operative Note Date: 12/24/2023 OR Location: ST OR Name: Ramy Martinez, : 1980, Age: 43 y.o., , Sex: female Diagnosis Pre-op Diagnosis * Prolapsed internal hemorrhoids [K64.8] Post-op Diagnosis * Prolapsed internal hemorrhoids [K64.8] Procedures Excisional hemorrhoidectomy, 2 columns Surgeons * Denisse Chiang - Primary Resident/Fellow/Other Planning Technician: Surgeons and Role: * Krystal Cerrato PA-C [...] EXAM Denisse Chiang MD 12/24/2023 1831 Staff: Office Machine Mechanic: Emily Galeas Person: Denisse Drains and/or Catheters: [...] scrubbed for the entire procedure. Denisse Chiang [facility] Work Phone: 12-24-2023 Note Formatting of this n ote is different from the original. Date: 12/24/2023 OR Location: [facility] OR Name: Ramy Martinez, : 1980, Age: 43 y.o., , Sex: female Diagnosis Pre-op Diagnosis * Prolapsed internal hemorrhoids [K64.8] Post-op Diagnosis * Prolapsed internal hemorrhoids [K64.8] Procedures Excisional hemorrhoidectomy, 2 columns Surgeons * Denisse Chiang - Primary Resident/Fellow/Other Planning Technician: Surgeons and Role: * Krystal Cerrato PA-C [...] PATHOLOGY EXAM Denisse Chiang MD 12/24/20231830 Staff: Office Machine Mechanic: Emily Galeas Person: Denisse Findings: Enlarged right [...] scrubbed for the entire procedure. Denisse Chiang [facility] Work Phone: 12-24-2023 Miscellaneous Notes Excisional Hemorrhoidectomy Operative Note Date: 12/24/2023 OR Location: ST OR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
== END 2025-01-29 15:47 | disposition home or self-care (01) ==
LOC: US 15:47
PROVIDERS: PCP Family Medicine; Visit Provider Nurse Practitioner Family
DX: R10.2 Pelvic and perineal pain (principal)
CPT/HCPCS: 76830; 76856

== ENCOUNTER 2025-04-17 14:19 | Outpatient (OUT) | payer BC, SELFPAY ==
--- OUTSIDE RECORDS SUMMARY | 2025-04-17 14:25 | XMS_ITS | CCD ---
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 Name Role Phone ABERRA, JOSEFINA Unavailable Unavailable HOUSE, JUDITH P Unavailable Unavailable HOUSE, JUDITH P Unavailable Unavailable ABERRA, JOSEFINA Unavailable Unavailable HOUSE, JUDITH P Unavailable Unavailable HOUSE, JUDITH P Unavailable Unavailable HOUSE, JUDITH P Unavailable Unavailable LI, NA Unavailable Unavailable LI, NA Unavailable Unavailable SCOTT, JOSEFINA Unavailable Unavailable MD Yaquelin Perez Primary Care Provider [phone] MD Reddy Dewitt Attending Provider Reddy Dewitt Unavailable Yaquelin Perez Primary Care Physician CASSIDY BOOKER Admitting Unavailable CASSIDY BOOKER Attending Unavailable CHRIS ., DR JAMISON Primary Care Unavailable CASSIDY BOOKER Consulting Unavailable LUIS ., DR CHASE Admitting Unavailable LUIS ., DR CHASE Attending Unavailable HOY ., DR JAMISON Primary Care Unavailable LUIS ., DR CHASE Consulting Unavailable LUIS ., DR CHASE Admitting Unavailable LUIS ., DR CHASE Attending Unavailable HOY ., DR JAMISON Primary Care Unavailable WILLOW [place]ILL, DR KRYSTAL Pelaez Consulting Unavailable LUIS ., [...] JAMISON Consulting Unavailable JADEN, GASPAR Admitting Unavailable CASSIDY BOOKER Attending Unavailable CHRIS ., DR JAMISON Primary Care Unavailable MD Yaquelin Perez Primary Care Provider MD Arleth Roach Admit Provider MD Arleth Roach Attending Provider Yaquelin Perez MD Primary Care Provider DENISSE CHIANG Attending Unavailable YAQUELIN PEREZ Primary [...] Primary Care Provider Unavailabl e Miguel, Melissa Talal Attending Unavaila damaso Rivera, Melissa Taladan Attending Unavaila ble Miguel, Melissa Talal Referring Unavaila ble Miguel, Melissa Talal Attending Unavaila ble Yolandaminpriyank, Melissa Talal Admitting Unavaila ble Miguel, Melissa Talal Attending Unavaila damaso Rivera, Melissa Talal Attending Unavaila YOLANDE Deutsch Attending Unavailable LOLI PACHECO Attending Unavailable Yaquelin Perez MD Primary Care Provider Flora Franco APRN Attending Provider [phone] Flora Franco Attending Unavailable Flora Franco Admitting Unavailable Yaquelin Perez Primary Care Unavailable Yaquelin Perez MD Primary Care Provider SALVADORFLORA COBB Attending Unavailable SALVADOR, FLORA Referring Unavailable SALVADOR, FLORA Referring Unavailable SALVADOR, FLORA Referring Unavailable SALVADORFLORA COBB Attending Unavailable Allergies Allergy ClassificationReported Allergen(s)Allergy TypeDate of OnsetReaction(s) Facility (9 sources)benzonatate; Translations: [benzonatate]Drug [id number] Eruption of skin (disorder), Swelling (finding), Swelling (morphologic abnormality)[facility] (2 sources)benzonatate; Translations: [Di Crespo][facility] (3 sources)BenzoateDrug Yjdpzjq62-07-0164Qmyow, Hives, [facility]chingN[facility] (3 sources)benzonatateDrug Fybalug60-37-5164Jzdh, SwellingNOMS Healthcare Medications Current Medications MedicationDrug Class(es)DatesSig (Normalized)Sig (Original)acetaminophen 325 mg / HYDROcodone bitartrate 5 mg oral tablet (4 sources)Opioid AgonistStart: 48-63-2059yfrc 1 tablet by mouth every four hours as needed1 tablet, oral, Every 4 hours PRN, pain moderate (4-6), second line, Starting on Sun12/24/23 at 1900, Recovery (only), When able to take oral medications., If ordered PRN for pain, nurse is permittedto administer this medication for higher pain scores based on patient preference? YesStart: 10-03-2019 End: 91-82-9479dgul 1 tablet by mouth once daily at bedtimeHydrocodone- Acetaminophen 5-325 mg Tablet Discontinued 1 TAB PO Daily at bedtime October 03, 2019 12:00am October 10, 2019 2:39pmacetaminophen 325 mg / oxyCODONE hydrochloride 5 mg oral tablet (1 source)Opioid AgonistStart: 12-24-2023 End: 31-07-7346poah 1 tablet by mouth every six hours for painoxyCODONE- acetaminophen (Percocet) 5-325 mg tablet Indications: Prolapsed internal hemorrhoids Take1 tablet by mouth every 6 hours if needed for severe pain (7 - 10) for up to 3 days. 10 tablet 12/24/2023 12/27/2023 Activealbuterol 0.83 mg/ml inhalation solution (7 sources)beta2-Adrenergic AgonistStart: 42.5 mg, nebulization, Every 20 min PRN, wheezing, Starting on Sun12/24/23 at 1900, For 3 doses, Recovery (only)Start: 10-03-2019 End: 82-80-9735wfzv 1 puff(s) by inhalation every four to six hours as needed for wheezingAlbuterol Sulfate (Proair Hfa) 90 mcg/actuation Hfa Aerosol Inhaler Discontinued 2 PUFF INHALATION EVERY 4-6 HOURS as needed for Shortness Of Breath Or Wheezing October 03, 2019 12:00am August 28, 2022 6:50pmtake 2 puff(s) by mouth every four hoursalbuterol 90 mcg/actuation inhaler INHALE 2 PUFFS BY MOUTH EVERY 4 HOURS IF NEEDED ActiveBudesonide-Formoterol (4 sources)Corticosteroid, beta2-Adrenergic AgonistStart: 60-21-0031kmyv 1 puff(s) by inhalation twice dailyBudesonide-Formoterol Active 1 PUFF INHALATION Twice daily October 03, 2019 8:30amStart: 10-03-2019 End: 16-59-8878nhik 1 puff(s) by inhalation twice dailyBudesonide-Formoterol 160-4.5 mcg/actuation HFA aerosol inhaler Discontinued 1 PUFF INHALATION Twice daily October 03, 2019 12:00am August 28, 2022 6:50pmStart: 10-03-2019 End: 14-98-8739nprb 1 puff(s) by inhalation twice dailyBudesonide-Formoterol Discontinued 1 PUFF INHALATION Twice daily October 03, 2019 12:00am August 28, 2022 6:50pmtake 2 puff(s) by inhalation twice dailySymbicort 160-4.5 MCG/ACT INHALE 2 PUFFS TWICE DAILY Inhalation for 30 Activecalcium chloride 0.0014 meq/ml / potassium chloride 0.004 meq/ml / sodium chloride 0.103 meq/ml / sodium lactate 0.028 meq/ml injectable solution (2 sources)Start: 95-03-8812ownb 100 mL intravenously every ciif186 mL/hr, intravenous, Continuous, Starting on Sun12/24/23 at 1930, Recovery (only) dexpanthenol 0.2 mg/ml / magnesium sulfate 0.0467 mg/ml / manganese sulfate 0.0467 mg/ml / niacinamide 0.467 mg/ml / pyridoxine 0.0467 mg/ml / riboflavin 0.04 mg/ml / thiamine 0.0333 mg/ml / vitamin b12 0.831301 mg/ml / zinc sulfate 0.333 mg/ml oral solution (2 sources)Vitamin G59rmynkqeey multivitamins-minerals 0.5-0.6-7-0.7 mg elixir Take 5 mL by mouth once daily. ActivediphenhydrAMINE (1 source)Histamine-1 Receptor AntagonistStart: 17-17-941285.5 mg, intravenous, Once as needed, itching, allergic reaction, Starting on Sun12/24/23 at 1900, For 1 dose, Recovery (only)docusate sodium 100 mg oral capsule (1 source)Start: 12-24-2023 End: 35-60-4011nrib 1 capsule by mouth twice dailydocusate sodium (Colace) 100 mg capsule Indications: Prolapsed internal hemorrhoids Take 1 capsule (100 mg) by mouth 2 times a day for 10 days. 20 capsule 12/24/2023 01/03/2024 Active escitalopram 10 mg oral tablet (1 source)Serotonin Reuptake Inhibitortake 1 tablet by mouth once daily Escitalopram Oxalate 10 MG TAKE 1 TABLET BY MOUTH EVERY DAY Oral for 90 Active FeroSul 325 mg oral tablet (4 sources)Start: 15-57-5510MgreWrb 325 mg oral tablet Refills(s) 0 Start Date: 07/06/22 Status: Orderedferrous sulfate 325 mg oral tablet (2 sources)Start: 67-69-9773ozpi 1 tablet by mouth once dailyfexofenadine hydrochloride 180 mg oral tablet (11 sources)Histamine-1 Receptor AntagonistStart: 85-03-2658qikg 1 tablet by mouth once dailyStart: 42-89-6544Iptbdir Refills(s) 0 Start Date: 07/06/22 Status: Ordered Repeat number: 1Start: 15-99-6062Yscqxwi Refills(s) 0 Start Date: 07/06/22 Status: OrderedAllegra 30 MG as directed Orally Activefluticasone / salmeterol (5 sources)Corticosteroid, beta2-Adrenergic AgonistStart: 78-00-4731Kmvhsm 100 mcg-50 mcg Powder Inhalation, BID, Refill(s) 0 Start Date: 06/13/21 Status: Ordered1 ml hydrALAZINE hydrochloride 20 mg/ml injection (1 source)Arteriolar VasodilatorStart: mg, intravenous, Administer over 2 Minutes, Every 30 min PRN, systolic blood pressure greater than 180 mmHg and heart rate less than 60 BPM, Starting on Sun12/24/23 at 1900, For 3 doses, Recovery (only)1 ml HYDROmorphone hydrochloride 1 mg/ml cartridge (2 sources)Opioid AgonistStart: .5 mg, intravenous, Every 5 min PRN, pain moderate (4-6), first line, Starting on Sun12/24/23 at 1900, Recovery (only), Max total of 4 mg regardless of dose.Start: mg, intravenous, Every 5 min PRN, pain severe (7-10), first line, Starting on Sun12/24/23 at 1900, Recovery (only), Max total of 4 mg regardless of dose.labetalol hydrochloride 5 mg/ml injectable solution (1 source)beta-Adrenergic BlockerStart: mg, intravenous, Administer over 1 Minutes, Every 20 min PRN, systolic blood pressure greater than 180 mmHg, dystolic blood pressure greater than 100 mmHg and heart rate greater than 60 BPM, Starting on Sun12/24/23 at 1900, For 4 doses, Recovery (only)lamoTRIgine 25 mg oral tablet (14 sources)Mood Stabilizer, Anti-epileptic AgentStart: 09-10-2023 End: 55-78-6485glie 2 tablets by mouth once dailyLamictal 25 mg Tab 50 mg = 2 tab(s), Oral, Daily, Refills(s) 0 Start Date: 09/10/23 Status: Ordered Repeat number: 1LORazepam 0.5 mg oral tablet (5 sources)BenzodiazepineStart: 99-84-5758npdd 1 tablet by mouth every twenty- four hours as neededLORazepam (Ativan) 0.5 mg tablet Take 1 tablet (0.5 mg) by mouth once daily as needed for anxiety. 01/02/2023 Activemeclizine hydrochloride 25 mg oral tablet (1 source)Antiemetictake 1 tablet by mouth once daily as needed for dizziness Meclizine HCl 25 MG TAKE 1 TABLET DAILY NEEDED FOR DIZZINESS ORALLY Oral for 30 Xbbyys68 hr mesalamine 375 mg extended release oral capsule (18 sources)AminosalicylateStart: 79-03-0865iivj 4 capsules by mouth once daily in the morningApriso 0.375 g oral capsule, extended release 1.5 gm = 4 cap(s), Oral, qAM, # 120 cap(s), Refills(s) 6, Pharmacy: [facility] #[id number], 166, cm, 09/25/23 14:32:00 EDT, Height/Length Dosing, 79,kg, 09/25/23 14:32:00 EDT, Weight Dosing Start Date: 02/01/24 Status: Ordered Quantity: 120.0 Unit: c ap(s) Repeat number: 7Start: 52-99-7004bvqc 1 capsule by mouth once daily in the morningStart: 29-71-2630uypw 1 capsule by mouth once daily in the morning Mesalamine (Apriso) 0.375 gram capsule,extended release 24hr Active 0.375 GM PO Every morning 2022 12:00amStart: 07-06-2022 End: 64-74-9644hkia 4 capsules by mouth once daily in the morningApriso 0.375 g oral capsule, extended release 1.5 gm = 4 cap(s), Oral, qAM, X 90 day(s), # 360 cap(s), Refills(s) 4, Pharmacy: [facility] #[id number], 166, cm, 07/06/22 13:48:00 EST, Height/Length Dosing, 98.7, kg, 07/06/22 13:48:00 EST, Weight Dosing Start Date: 07/06/22 Stop Date: 09/29/23 Status: Ordered End: 63-55-2000mfki 1 capsule by mouth once dailymesalamine ER (Apriso) 0.375 g 24 hr capsule Take 1.5 g by mouth Daily 01/12/2025 Discontinuedmesalamine ER (Apriso) 0.375 gram 24 hr capsule Active5 ml midazolam 1 mg/ml injection (1 source)BenzodiazepineStart: mg, intravenous, Once as needed, anxiety, Starting on 12/24/23 at 1900, For 1 dose, Recovery (only)oxygen (O2) therapy (1 source)Start: 11-52-1692oqxkzroqpl, Continuous PRN - O2/gases, other, Starting on Sun12/24/23 at 1900, Recovery (only), Device: Nasal Cannula, Rate in liters per minute: 4 LPM, Keep O2 Sat Above: 92%pantoprazole 40 mg delayed release oral tablet (3 sources)Proton Pump InhibitorStart: 22-37-5815wfed 1 tablet by mouth once dailyProtonix 40 mg Tab-DR = 1 tab(s), Oral, Daily, Refills(s) 0 Start Date: 09/24/24 Status: Ordered Repeat number: 1phentermine hydrochloride 37.5 mg oral tablet (3 sources)Sympathomimetic Amine AnorecticStart: 00-94-7255tlla 1 tablet by mouth once dailyphentermine 37.5 mg Tab 37.5 mg = 1 tab(s), Oral, Daily, Refills(s) 0 Start Date: 09/24/24 Status: Ordered Repeat number: 1promethazine (Phenergan) 6.25 mg in sodium chloride 0.9% 50 mL IV (1 source)Start: .25 mg, intravenous, Administer over 15 Minutes, Once as needed, Nausea/vomiting, second line, Starting on Sun12/24/23 at 1900, For 1 dose, Recovery (only)racepinephrine 22.5 mg/ml inhalation solution (1 source)Start: 15-77-2116dczy 0.5 mL by inhalation every four hours as needed 0.5 mL, nebulization, Every 4 hours PRN, wheezing, shortness of breath, stridor, Starting on Sun12/24/23 at 1900, Recovery (only), Dilute in 3 mL NSriboflavin, vitamin B2, (VITAMIN B-2 ORAL) (2 sources)riboflavin, vitamin B2, (VITAMIN B-2 ORAL) Take by mouth 1 (one) time per week in the serging machine operator.. Activeriboflavin, vitamin B2, (VITAMIN B-2 ORAL) Take by mouth 1 (one) time per week in the serging machine operator.. SuspendedtraZODone hydrochloride 50 mg oral tablet (17 sources)Serotonin Reuptake InhibitorStart: 08-31-2022 End: 26-81-2684qoey 1 tablet by mouth once daily at bedtime as neededTrelegy Ellipta 200 mcg-62.5 mcg-25 mcg/inh inhalation powder (3 sources)Start: 25-20-8821tfhg 1 puff(s) by inhalation once dailyTrelegy Ellipta 200 mcg-62.5 mcg-25 mcg/inh inhalation powder 1 puff(s), Inhalation, Daily, Refill(s) 0 Start Date: 09/24/24 Status: Ordered Repeat number: 1 Xusvslw-Wcas-Olidp-Oreg-Capryl (1 source)Start: 13-95-4713flte 1 capsule by mouth once daily Jemluuv-Pbsv-Qsbpt-Oreg-Capryl Active 1 CAP PO Daily August 28, 2022 12:00am Turmeric extract (4 sources)Start: 11-66-7637Sowbyrkw Refill(s) 0 Start Date: 07/11/23 Status: WzrzzmtQmumsoql-Knvi-Lnqub-Oreg-Capry 100 mg-150 mg- 50 mg-150 mg Capsule (1 source)Start: 68-84-7343gokc 1 capsule by mouth once daily24 hr venlafaxine 75 mg extended release oral capsule (18 sources)Serotonin and Norepinephrine Reuptake InhibitorStart: 07-11-2023 venlafaxine 75 mg Cap-ER Refills(s) 0 Start Date: 07/11/23 Status: Ordered Repeat number: 1Start: 69-70-2066ovgx 1 tablet by mouth once daily End: 80-53-5373jzjl 1 capsule by mouth every twenty-four hours in the morning venlafaxine XR (Effexor XR) 75 MG 24 hr capsule Take 75 mg by mouth in the morning. 01/12/2025 DiscontinuedVentolin HFA 90 mcg/inh Aerosol (8 sources)Start: 39-64-3241kvwb 2 puff(s) by inhalation four times daily Ventolin HFA 90 mcg/inh Aerosol 2 puff(s), Inhalation, QID Shortness of breath or wheezing, Refill(s) 0, Asthma Start Date: 09/11/17 Status: Ordered Repeat number: 1Start: 78-88-8722kowp 2 puff(s) by inhalation four times dailyVentolin HFA 90 mcg/inh Aerosol 2 puff(s), Inhalation, QID Shortness of breath or wheezing, Refill(s) 0, Asthma Start Date: 09/11/17 Status: Orderedverapamil hydrochloride 180 mg extended release oral tablet (1 source)Calcium Channel Blockertake 1 tablet by mouth once dailyVerapamil HCl ER 180 MG TAKE 1 TABLET BY MOUTH EVERY DAY Oral for 30 Active Completed/Discontinued Medications MedicationDrug Class(es)DatesSig (Normalized)Sig (Original)busPIRone hydrochloride 10 mg oral tablet (3 sources)Start: 10-03-2019 End: 01-48-6729zqmi 1 tablet by mouth twice dailyBuspirone 10 mg tablet Discontinued 10 MG PO Twice daily October 03, 2019 12:00am August 28, 2022 5:39pm cephalexin 500 mg oral capsule (3 sources)Cephalosporin AntibacterialStart: 10-10-2019 End: 92-75-1031jnen 1 capsule by mouth every eight hoursCephalexin (Keflex) 500 mg capsule Discontinued 500 MG PO Q8H October 10, 2019 12:00am August 5:37pmclonazePAM 1 mg oral tablet (6 sources)BenzodiazepineStart: 08-28-2022 End: 29-62-7731thfr 0.5-1 tablets by mouth at bedtimeClonazepam (Klonopin) 1 mg tablet Discontinued 1 MG PO Bedtime August 28, 2022 12:00am August 11:27am Take 1/2 to 1 tablet at HS.Start: 83-76-3862UfvenrrCLY 0.5 mg Tab Refills(s) 0 Start Date: 07/06/22 Status: Orderedcyclobenzaprine hydrochloride 10 mg oral tablet (3 sources)Muscle RelaxantStart: 10-10-2019 End: 05-37-9203lskp 1 tablet by mouth three times daily as needed for muscle spasmsCyclobenzaprine 10 mg tablet Discontinued 10 MG PO Three times daily as needed for back spasms 50 October 10, 2019 12:00am August 28, 2022 5:37pm magnesium sulfate 225 MG / potassium chloride 188 MG / sodium sulfate 1479 MG Oral Tablet [Sutab] (6 sources)Start: 75-59-7731xtah 1 tablet by mouth onceSutab oral tablet See Instructions, 1 EA, Refill(s) 0, NICOLE, Please follow instructions per packaging and physician's handout, [facility] #[id number], 166, cm, 09/24/24 8:26:00 EDT, Height/Length Dosing, 91.5, kg, 09/24/24 8:26:00 EDT, Weight Dosing Start Date: 09/24/24 Status: Ordered Quantity: 1.0 Unit: EA Repeat number: 1Start: 30-47-0379wpbj 1 tablet by mouth onceSutab oral tablet See Instructions, 24 tab(s), Refill(s) 0, Please follow instructions per packaging and physician's handout. Prior to colonoscopy as instructed by Dr. Booker. Colonoscopy ordered by Dr. Booker., [facility]/pharmacy #[id number], 166, cm, 06/13/21 8:20:00 EST, Height/Length Dosing, 110.5, kg, 06/13/21 8:20:00 EST, Weight Dosing Start Date: 06/13/21 Status: OrderedStart: 84-01-1313yiae 1 tablet by mouth onceSutab oral tablet See Instructions, 24 tab(s), Refill(s) 0, Please follow instructions per packaging and physician's handout. Prior to colonoscopy as instructed by Dr. Booker. Colonoscopy ordered by Dr. Booker., [facility]/pharmacy #[id number], 166, cm, 06/13/21 8:20:00 EST, Heigh... Start Date: 06/13/21 Status: Ordered2 ml metoclopramide 5 mg/ml injection (1 source)Dopamine-2 Receptor AntagonistStart: 12-24-2023 End: 24-35-328519 mg, intravenous, Once as needed, nausea/vomiting, first line, Starting on Sun12/24/23 at 1900, For 1 dose, Recovery (only)montelukast 10 mg oral tablet (3 sources)Leukotriene Receptor AntagonistStart: 10-03-2019 End: 28-32-7799horp 1 tablet by mouth once dailyMontelukast 10 mg tablet Discontinued 10 MG PO Daily October 03, 2019 12:00am August 28, 2022 5:38pm oxyCODONE hydrochloride 5 mg oral capsule (3 sources)Opioid AgonistStart: 10-10-2019 End: 71-24-0616hgeg 5-10 mg by mouth every six hours as needed for painOxycodone 5 mg capsule Discontinued 5 - 10 MG PO Q6H as needed for pain 60 8 October 10, 2019 August 28, 2022 5:39pmsertraline 100 mg oral tablet (6 sources)Serotonin Reuptake InhibitorStart: 10-03-2019 End: 63-54-0042mxqv 1 tablet by mouth once dailySertraline (Zoloft) 100 mg Tablet Discontinued 100 MG PO Daily October 10, 2019 12:00am October 10, 2019 5:55am vedolizumab 300 mg injection (3 sources)Integrin Receptor AntagonistStart: 10-03-2019 End: 84-63-6980ooun 300 mg intravenously every two monthsVedolizumab (Entyvio) 300 mg Recon Soln Discontinued 300 MG IV EVERY 2 MONTHS October 03, 2019 12:00am August 28, 2022 5:38pmVitamin D 50,000 intl units (1.25 mg) oral capsule (2 sources)Start: 07-16-2023 End: 47-44-8904jmdz 1 capsule by mouth every weekVitamin D 50,000 intl units (1.25 mg) oral capsule 50,000 International_Unit = 1 cap(s), Oral, qWeek, X 6 months, # 26 cap(s), Refills(s) 0, Pharmacy: [facility] #[id number], 166, cm, 07/11/23 8:09:00 EST, Height/Length Dosing, 82.6, kg, 07/11/23 8:09:00 EST, Weight Dosing Start Date: 07/16/23 Stop Date: 01/12/24 Status: Ordered Problems Active Problems Problem ClassificationProblemDateDocumented DateEpisodic/ChronicAbdominal pain (3 sources)Pain in female pelvis; Translations: [Pelvic and perineal pain] 39-76-7417RjdoflxpTnjmswdwcxaxiw/social admission (2 sources)Patient encounter status; Translations: [Person consulting for explanation of examination or test findings]67-13-4202CynbfsyzSjsz and rectal conditions (2 sources)Rectal prolapse; Translations: [Rectal prolapse]Onset: 09-25-2023 EpisodicAnxiety disorders (3 sources)Anxiety; Translations: [Anxiety disorder, unspecified]08-29-2022 ChronicAsthma (9 sources)Asthma without status asthmaticus; Translations: [Asthma, unspecified, unspecified status]Onset: 377586-36-1803AxkxqfkEeqdnom on above:no problemsAttention-deficit, conduct, and disruptive behavior disorders (2 sources)Attention deficit hyperactivity disorder; Translations: [Attention- deficit hyperactivity disorder, unspecified type]55-81-4940XsfjdfvGthlxizky- deficit, conduct, and disruptive behavior disorders (1 source)Attention-deficit hyperactivity disorder, unspecified type; Translations: [Attention deficit disorder with hyperactivity]45-52-5414Tluymvv Biliary tract disease (16 sources)Acute cholecystitis; Translations: [Common bile duct calculus] 94-74-6953NydwgppgNgegjye dysrhythmias (2 sources)Palpitations; Translations: [Palpitations]Onset: 62-88-3202Cqbdqbdr Diabetes mellitus without complication (8 sources)Diabetes wpoalrbm40-70-6826DywnextGmcinakc of white blood cells (1 source)Leukocytosis; Translations: [Elevated white blood cell count, unspecified]ChronicHeadache; including migraine (1 source)Migraine; Translations: [Migraine, unspecified without mention of intractable migraine without mention of status migrainosus]Onset: 10-19-2008 ChronicHemorrhoids (9 sources)Internal hemorrhoids; Translations: [Other hemorrhoids]Onset: 317821-40-7604KuizhoeiFtof disorders (1 source)Depressive disorder; Translations: [Depressive disorder, not elsewhere classified]Onset: 54-67-6471EahaofiWznnltrakped breast conditions (3 sources)Mastodynia; Translations: [Mastodynia]26-32-7261TgmjuoogVlrmbrjmavy chest pain (2 sources)Other chest pain; Translations: [Other chest pain]Onset: 10-20-2024 EpisodicOther aftercare (1 source)Other mcfp (current) drug therapy; Translations: [OTH CORRECTION CURRENT DRUG THERAPY]Onset: 70-50-6056AgeywpwhRppzx circulatory disease (2 sources)Elevated blood-pressure reading, without diagnosis of hypertension; Translations: [Elevated blood-pressure reading, without diagnosis of hypertension]Onset: 45-37-9470HmaktmvjUnwrx gastrointestinal disorders (1 source)Constipation, unspecified; Translations: [Constipation, unspecified] Onset: 81-76-8854ImerijrbVijah hereditary and degenerative nervous system conditions (1 source)Restless legs; Translations: [Restless legs syndrome [RLS]]Onset: 13-77-1554PmfpxekFqmaj hereditary and degenerative nervous system conditions (1 source)Restless legs syndrome; Translations: [RESTLESS LEGS SYNDROME]Onset: 92-09-1102TpgoikuTirks lower respiratory disease (2 sources)Shortness of breath; Translations: [Shortness of breath]Onset: 53-42-7328PyvttcteBzgnx nervous system disorders (1 source)Cervical myelopathy; Translations: [Disease of spinal cord, unspecified]ChronicOther nervous system disorders (1 source)Carpal tunnel syndrome of right wrist; Translations: [Carpal tunnel syndrome, right upper limb]ChronicOther non-traumatic joint disorders (4 sources)Arthropathy, unspecified; Translations: [Arthropathy, unspecified] Onset: 77-15-5548PenzituQwoqd non-traumatic joint disorders (1 source)Joint pain; Translations: [Pain in unspecified joint]Onset: 09-24-2024 EpisodicOther nutritional; endocrine; and metabolic disorders (1 source)Obesity; Translations: [Obesity, unspecified]Onset: 02-52-5845Mceuotb Other nutritional; endocrine; and metabolic disorders (8 sources)Body mass index 30+ - -23-7579TznqenvBshwr screening for suspected conditions (not mental disorders or infectious disease) (11 sources)Encounter for screening mammogram for malignant neoplasm of breast; Translations: [Encounter for screening for malignant neoplasm of cervix]Onset: 13-86-4177SrcosyarTocsxlmv enteritis and ulcerative colitis (20 sources)Ulcerative colitis; Translations: [Unspecified ulcerative colitis] Onset: 84-91-7649CroubfdJpsgwpad codes; unclassified (4 sources)Obstructive sleep apnea (adult) (pediatric); Translations: [OBSTRUCTIVE SLEEP APNEA]Onset: 68-77-0631XkqckcbTigcvsuobsx; intervertebral disc disorders; other back problems (7 sources)Intervertebral disc disorder of cervical region with myelopathy; Translations: [Cervical disc disorder at C6-C7 level with myelopathy]Onset: 08-30-2021 Resolved: 737519-93-8836XfcnspiJachvsn and intentional self-inflicted injury (5 sources)Poisoning by other nonsteroidal anti-inflammatory drugs [NSAID], intentional self-harm, initial encounter; Translations: [Poisoning by benzodiazepines, intentional self-harm, initial encounter]Onset: 08-28-2022 EpisodicThyroid disorders (1 source)Goiter; Translations: [Goiter, unspecified]Onset: 12-47-1099Gstiypw Unclassified (1 source)Ulcerative (chronic) pancolitis with other complication / K51.018(ICD-10)Onset: 78-46-2567Okvloiervyja (1 source)Follow-up / 145()Onset: 06-11-2017 Past or Other Problems Problem ClassificationProblemDateDocumented DateEpisodic/ChronicDiabetes mellitus without complication (1 source)Impaired fasting glycemia; Translations: [Impaired fasting glucose] Onset: 38-89-8551QewaovrsUenvjrlswbnpp and screening for infectious disease (1 source)Encounter for screening for human papillomavirus (HPV); Translations: [ENC SCREENING HUMAN PAPILLOMAVIRUS]Onset: 19-53-7300ZpouubwvFxfkq connective tissue disease (1 source)Myalgia/myositis - multiple; Translations: [Unspecified myalgia and myositis]Onset: 00-02-8813VbvppinrItrruvsp codes; unclassified (1 source)Insomnia; Translations: [Insomnia, unspecified]Onset: 02-28-2008 EpisodicResidual codes; unclassified (1 source)Family history of malignant neoplasm of trachea, bronchus and lung; Translations: [FAM HX MALIG NEOPLSM TRACH BRON LNG]Onset: 35-24-9670Indoobzs Residual codes; unclassified (1 source)Family history of malignant neoplasm of other organs or systems; Translations: [FAM HX MALIG NEOPLASM OTH ORGN/SYS]Onset: 58-83-2185Kdozurut Residual codes; unclassified (14 sources)Family history of cancerOnset: 410844-23-1128Drkqdtcr Spondylosis; intervertebral disc disorders; other back problems (1 source)Radiculopathy, lumbar regionOnset: 08-30-2021 Resolved: 91-36-2632BnwnmgbhFdylrofvhjjv (1 source)Ulcerative (chronic) pancolitis with other complication; Translations: [Ulcerative (chronic) pancolitis with other complication]Onset: 09-03-2017 Unclassified (1 source)Follow-up; Translations: [Follow-up]Onset: 06-11-2017 Results Test NameValueInterpretationReference RangeFacilityBI MAMMOGRAM DIAGNOSTIC TOMOSYNTHESIS LEFTon 48-16-5939BU MAMMOGRAM DIAGNOSTIC TOMOSYNTHESIS LEFTThis is a summary report. The complete report is available in the patient's medical record. If you cannot access the medical record, please contact the sending organization for a detailed fax or copy. EXAMINATION: BI MAMMOGRAM DIAGNOSTIC TOMOSYNTHESIS LEFT CLINICAL HISTORY: left breast pain TECHNIQUE: Diagnostic digital mammogram study of the left breast was performed with 2D and 3D tomosynthesis imaging. Study was compared to the screening mammogram study of the breasts dated 12/09/2024 and ultrasound study left breast dated 02/13/2025. FINDINGS: Standard views as well as coned-down compression views, exaggerated lateral CC and true lateral views were obtained. There is no evidence of interval dominant spiculated mass, grouped microcalcifications or skin thickening which would be suggestive of malignancy. No obvious abnormality in the area of pain medially. A single benign-appearing calcification is noted. Axillary lymph nodes including a partially visualized lymph node are noted which appear grossly unremarkable. Ultrasound study was grossly unremarkable. IMPRESSION: No specific evidence of malignancy seen in the left breast. BIRADS 2 - Benign Findings DENSITY: The breasts are heterogeneously dense, which may obscure small masses. FOLLOW-UP: Routine Screening Mammogram Board Certified Radiologists. Accredited by the ACR and FDA. MAMMOGRAPHY IS VERY IMPORTANT TO YOUR HEALTH. THE [place] [employer]IET[employer] GUIDELINES RECOMMEND THATWOMEN 40 YEARS OF AGE AND OLDER SHOULD HAVE A MAMMOGRAM EVERY YEAR. A REMINDER LETTER WILL BE SENT AT THE APPROPRIATE TIME. ELECTRONICALLY SIGNED BY: Dexter Eller M.D.NormalNot AvailableBI US BREAST LIMITED LEFTon 62-88-3678BP US BREAST LIMITED LEFTThis is a summary report. The complete report is available in the patient's medical record. If you cannot access the medical record, please contact the sending organization for a detailed fax or copy. Examination: BI US BREAST LIMITED LEFT Reason for Study: Left Breast Pain Comparison: Screening mammogram study of the breasts dated 01/09/2025 and diagnostic mammogram study of the left breast dated 02/13/2025. Technique: Ultrasound study of the left breast was performed. Images were obtained from the 7:00 tothe 10 o'clock position to include area of pain as well as the left axillary region in the area of clinically suggested lump. Findings: In the left breast from the 7:00 to the 10 o'clock position including area of pain there is no obvious solid or cystic mass. No obvious solid vascular mass to suggest neoplasm. No obvious abnormal calcifications or vascularity. No obvious ductal dilatation. In the left axillary region there is an area of peripherally decreased and centrally increased echogenicity compatible with an unremarkable appearing lymph node measuring 0.8 x 0.7 x 0.6 cm. No obvious adenopathy. Unremarkable appearing left axillary lymph nodes were noted on the diagnostic mammogram study dated 02/13/2025. IMPRESSION: Impression: Left breast ultrasound study is grossly unremarkable. No obvious neoplasm. When correlating the studies no convincing evidence of neoplasm. Unremarkable appearing left axillary lymph node. No obvious adenopathy. BI-RADS 2 ELECTRONICALLY SIGNED BY: Dexter Eller M.D.NormalNot AvailableUS PELVIC COMPLETE W/ TVon 18-52-3585NA PELVIC COMPLETE W/ TVFINDINGS: Uterus 9.1 x 5.2 x 3.9 cm Endometrium 5 mm Right Ovary 3.2 x 2.1 x 1.5 cm Left Ovary 2.5 x 1.6 x 1.4. cm The uterus is normal in size and orientation. No worrisome mass lesions are seen. Endometrium appears unremarkable. Several millimeter cervical Nabothian cysts. No fluid is seen within the cul-de-sac. Both ovaries appear normal for this age. IMPRESSION: Normal pelvic ultrasound appearance. TRANSCRIBED BY: ELECTRONICALLY SIGNED BY: Janet NaqviNot AvailableComment on above:Order Comment: US PELVIS-TRANSVAG IF INDICATED No LMP recorded.US PELVIS W/ TRANSVAGINALon 68-63-3550[place] [address] Ultrasound Report Signed Patient: RAMY MARTINEZ MR#: [id number] : 1980 Acct:[id number] Age/Sex: 44 / F ADM Date: 01/29/25 Loc: US Attending Dr: Flora Franco Ordering Physician: Flora Franco Date of Service: 01/29/25 Procedure(s): US pelvis w/ transvaginal Accession Number(s): [id number] cc: Flora Franco; Yaquelin Perez M.D. [facility] [place] [id number] Patient Name: RAMY MARTINEZ MRN: [id number] date: 1980 Sex: F Assigned Patient Location: US Current Patient Location: US Accession/Order Number: [id number] Exam Date: 01/29/2025 16:04 Report Date: 01/29/2025 20:30 At the request of: FLORA FRANCO Procedure: US pelvis w/ transvaginal Transvaginal and transabdominal pelvic ultrasound INDICATION: Pelvic pain in a female for 4 months COMPARISON: None FINDINGS: Uterus anteverted and retroflexed. Uterus measures 7.6 x 4.4 x 4.2 cm. Multiple nabothian cysts within cervix. Endometrial thickness 4.1 mm. Right ovary 2.4 x 1.8 x 1.4 cm in size. Unremarkable. Unremarkable venous and arterial flow to the right ovary. Left ovary is not visualized. Obscured by bowel gas US/US pelvis w/ transvaginal IMPRESSION: Nonvisualization left ovary. Otherwise physiologic findings identified. Impression dictated by: Jersey Bruno M.D. 01/29/2025 8:30 PM Dictation Location: [place] [address] Electronically authenticated by: [id number] Y Date: 01/29/2025 20:30 Dictated By: Jersey Bruno M.D. Signed By: 01/29/252032 DD/ 29 TD/TT: Hardware Test Engineer:TBHRadiology, Radiologist, MD - 01/29/2025 [facility] [place] [id number] Ultrasound Report Signed Patient: RAMY MARTINEZ MR#: [id number] : 1980 Acct:[id number] Age/Sex: 44 / F ADM Date: 01/29/25 Loc: US Attending Dr: Flora Franco Ordering Physician: Flora Franco Date of Service: 01/29/25 Procedure(s): US pelvis w/ transvaginal Accession Number(s): [id number] cc: Flora Franco; Yaquelin Perez M.D. [address] [address] Patient Name: RAMY MARTINEZ MRN: [id number] date: 1980 Sex: F Assigned Patient Location: US Current Patient Location: US Accession/Order Number: [id number] Exam Date: 01/29/2025 16:04 Report Date: 01/29/2025 20:30 At the request of: FLORA FRANCO Procedure: US pelvis w/ transvaginal Transvaginal and transabdominal pelvic ultrasound INDICATION: Pelvic pain in a female for 4 months COMPARISON: None FINDINGS: Uterus anteverted and retroflexed. Uterus measures 7.6 x 4.4 x 4.2 cm. Multiple nabothian cysts within cervix. Endometrial thickness 4.1 mm. Right ovary 2.4 x 1.8 x 1.4 cm in size. Unremarkable. Unremarkable venous and arterial flow to the right ovary. Left ovary is not visualized. Obscured by bowel gas US/US pelvis w/ transvaginal IMPRESSION: Nonvisualization left ovary. Otherwise physiologic findings identified. Impression dictated by: Jersey Bruno M.D. 01/29/2025 8:30 PM Dictation Location: [place] [address] Electronically authenticated by: [id number] Y Date: 01/29/2025 20:30 Dictated By: Jersey Bruno M.D. Signed By: 01/29/252032 DD/ 29 TD/TT: Hardware Test Engineer: ROSA MARIA HealthcareRadiology Study observation (narrative)NOMGerardo HealthcareUS PELVIS W/ TRANSVAGINALOrdered By: Radiologist Radiology on 27-12-7008FCHV Healthcare Work Phone: IGP,APTIMA HPV,AGE GDLNon 03-87-4050QJB GDLN ACOG TESTINGNote.NOMS HealthcareComment on above:TESTS RESULT FLAG UNITS REF RANGE LAB Clinician Provided Cytology Information Source.............Cervix;Endocervix No. of containers..01 ThinPrep Vial Age Eyal BEARDEN Amirah... 3065 FLAG LEGEND: L-Low Normal,H-High Normal,LL-Alert Low,HH-Alert High <-Panic Low,>-Panic High,A-Abnormal,AA-Critical Abnormal Performed at: 01 =[address] [place] [address] Zainab Mckeon MD, HPV APTIMANegativeNegativeNOMS HealthcareComment on above:This nucleic acid amplification test detects fourteen high- risk HPV types (16,18,31,33,35,39,45,51,52,56,58,59,66,68) without differentiation. Performed at: =[address] [id number] Animal Tech: Zainab Mckeon MD, Phone: [phone] Performed at: [address] [id number] Animal Tech: Zainab Mckeon MD, Phone: [phone] IGP, APTIMA HPV, RFX 16/18,45Note.NOMS HealthcareComment on above:TESTS RESULT FLAG UNITS REF RANGE LAB DIAGNOSIS: 02 NEGATIVE FOR INTRAEPITHELIAL LESION OR MALIGNANCY. Specimen adequacy: 02 Satisfactory for evaluation. Endocervical and/or squamous metaplastic cells (endocervical component) are present. Performed by: 02 Natalie Starks [employer] Manager (ASCP) . 02 Note: Note 02 [...] <-Panic Low,>-Panic High,A-Abnormal,AA-Critical Abnormal Performed at: [address] [address] Zainab Mckeon MD, BRUSH-SPATULA CERVIX ENDOCERVIX [facility] TOMOSYNTHESIS SCREENING BIon 96-49-2313[address] [address] Mammography Report Signed Patient: RAMY MARTINEZ MR#: [id number] : 1980 Acct:[id number] Age/Sex: 44 / F ADM Date: 01/09/25 Loc: MAMMO Attending Dr: Sherri Reynolds Ordering Physician: Sherri Reynolds Results: Date of Service: 01/09/25 Follow Up: Procedure(s): MM tomosynthesis screening BI Accession Number(s): [id number] cc: Sherri Reynolds; Yaquelin Perez M.D. Patient Name: RAMY MARTINEZ MR#: [id number] : 1980 Exam Date: 01/09/2025 Ordering Doctor: [...] uterine cancer at age 40. LOCATION: [facility] BREAST COMPOSITION: The breasts are heterogeneously dense, [...] Signed By: 01/09/25 1321 DD/ 1320 TD/TT: Hardware Test Engineer:TBHRadiology, RadiologistMD - 01/09/2025 [place] [address] Mammography Report Signed Patient: RAMY MARTINEZ MR#: [id number] : 1980 Acct:[id number] Age/Sex: 44 / F ADM Date: 01/09/25 Loc: MAMMO Attending Dr: Sherri Reynolds Ordering Physician: Sherri Reynolds Results: Date of Service: 01/09/25 Follow Up: Procedure(s): MM tomosynthesis screening BI Accession Number(s): [id number] cc: Yaquelin Perry M.D. Patient Name: RAMY MARTINEZ MR#: [id number] : 1980 Exam Date: 01/09/2025 Ordering Doctor: [...] uterine cancer at age 40. LOCATION: [facility] BREAST COMPOSITION: The breasts are heterogeneously dense, [...] Signed By: 01/09/25 1321 DD/ 1320 TD/TT: Hardware Test Engineer: ROSA MARIA HealthcareRadiology Study observation (narrative)[facility] TOMOSYNTHESIS SCREENING BIOrdered By: Radiologist Radiology on 55-59-7359NWHP Healthcare Work Phone: Office Visiton 02-50-5349Uqxhfo-up [id number] Ramy Martinez 1980 F Date Provider Department Center 12/29/2024 [id number], ADAM [facility] Family History Problem Relation Age of Onset Lung cancer Mother Hypertension Father Stroke Paternal Grandmother Coronary artery disease Paternal Grandmother Family Status - Relation Status Age at Mother Father Alive Paternal Grandmother Level of Service:70834 CA OFFICE/OUTPATIENT ESTABLISHED MOD MDM 30 [facility] CenterOrders Onlyon 31-03-0346Glkmjm [id number] Ramy Martinez 1980 F Date Provider Department Center 12/03/2024 [id number], HISTORICAL [facility] Family History Problem Relation Age of Onset Lung cancer Mother Hypertension Father Stroke Paternal Grandmother Coronary artery disease Paternal Grandmother Family Status - Relation Status Age at Mother Father Alive Paternal GrandmotherNProMedica Flower HospitalGastroenterology Office/Clinic Noteon 18-32-4414Zddbogvdywlrzmrb Office/Clinic Note Gastroenterology Office/Clinic Note Chief Complaint Colonoscopy results HPI Staff Established patient is a(n) 44 year old female who presents today for a follow- up to Colonoscopy on10/07/24. 1 year colon recall placed. Labs not [...] otherwise normal colonic mucosa, normal vascular pattern, Spraks score 0. Dysplasia screening was done using white light and NBI aswell as biopsies every 10 cm 3. Normal examined terminal ileum RECOMMENDATIONS: Repeat colonoscopy in 1 year based on pathology Pathology: Final Diagnosis ( Modified ) A: TRANSVERSE COLON, BIOPSY: ARCHITECTURALLY NORMAL COLONIC GLANDULAR MUCOSA - NO DIAGNOSTIC EVIDENCE OF LYMPHOCYTIC/MICROSCOPIC OR COLLAGENOUS COLITIS B: RECTUM, BIOPSY: ARCHITECTURALLY NORMAL COLONIC GLANDULAR MUCOSA - NO DIAGNOSTIC EVIDENCE OF LYMPHOCYTIC/MICROSCOPIC OR COLLAGENOUS COLITIS - FOCAL MUCOSAL LYMPHOID AGGREGATES PRESENT C: RIGHT COLON, BIOPSY: ARCHITECTURALLY NORMAL COLONIC GLANDULAR MUCOSA - NO DIAGNOSTIC EVIDENCE OF LYMPHOCYTIC/MICROSCOPIC OR COLLAGENOUS COLITIS D: LEFT COLON, BIOPSY: ARCHITECTURALLY NORMAL COLONIC GLANDULAR MUCOSA - NO DIAGNOSTIC EVIDENCE OF LYMPHOCYTIC/MICROSCOPIC OR COLLAGENOUS COLITIS - FOCAL MUCOSAL LYMPHOID [...] Follow-up With When Contact Information Miguel HAQUE, ABDIAS Osorio, MED In 1 year [address] [facility], [address] [phone] Additional Instructions: Problem List/Past Medical History Ongoing [...] Alcohol Use, 09/06/2017 Ne (more content not included)...[facility] HospitalComment on above:Result Comment: Electronically Signed By: Melissa Rivera MD\.br\Date and Time Signed: 11/06/24 09:41 EDT\.br\Electronically Co-Signed By: Pamela Millan MA\.br\Date and Time Co-Signed: 11/05/24 08:46 EDT Ambulatory Visit Summaryon 24-64-4694Mrpxgqgaus Visit SummaryAmbulatory Visit Summary RAMY MARTINEZ :1980 Visit Date:11/05/2024 [...] EDT With: Miguel HAQUE, Melissa Talavera Where: [facility] [address] [address]- You Need to Schedule the Following Appointments Follow Up with Miguel HAQUE, Melissa Talavera, GAS, MED When: In 1 year Where: [address], [address] [phone] Medications What How Much When Instructions Unchanged [...] physician's handout Contact prescribing physician if questions orconcerns Unchanged mesalamine (Apriso 0.375 g oral capsule, extended release) 4 Capsules By Mouth Once a day(in the morning) Contact prescribing physician if questions [...] signed up for this yet, please contact [facility] at [phone] to get signed up today. Language Information Language assistance services are available as needed. [facility] 71-33-2607Ommgnhbmv Reminders From: Penny Saldivar MA To: [facility] - Reminders/Recalls; Sent: 10/21/2024 11:48:28 EDT Show up: 09/04/2025 11:48:00 EDT Subject: colon recall Due Date/Time: 10/07/2025 11:48:00 EDT Reminder/Recall [address] Rivera [facility]/07/24NoMer[facility] HospitalOffice Visiton 91-01-7748Foymhx-up visit [id number] Ramy Martinez 1980 F Date Provider Department Center 10/20/2024 Sam-YOLANDE HOOKS [facility] Family History Problem Relation Age of Onset Lung cancer Mother Hypertension Father Stroke Paternal Grandmother Coronary artery disease Paternal Grandmother Family Status - Relation Status Age at Mother Father Alive Paternal Grandmother Level of Service:03475 CA OFFICE/OP CONSLTJ NEW/EST PT MOD MDM 40 [facility] Reporton 10-10-2024 [address] [address]- Surgical Pathology Report Collected Date/Time: 10/07/2024 10:33 EDT Pathologist: Emilia HAQUE, Myke Madera Received Date/Time: 10/07/2024 18:00 EDT Miguel HAQUE, Melissa Rivera MD, Melissa Talavera 07 Surgical Pathology Report - 10/10/2024 16:11 EDT - Auth (Verified) Final Diagnosis A: TRANSVERSE COLON, BIOPSY: ARCHITECTURALLY NORMAL COLONIC GLANDULAR MUCOSA - NO DIAGNOSTIC EVIDENCE OF LYMPHOCYTIC/MICROSCOPIC OR COLLAGENOUS COLITIS B: RECTUM, BIOPSY: ARCHITECTURALLY NORMAL COLONIC GLANDULAR MUCOSA - NO DIAGNOSTIC EVIDENCE OF LYMPHOCYTIC/MICROSCOPIC OR COLLAGENOUS COLITIS - FOCAL MUCOSAL LYMPHOID AGGREGATES PRESENT C: RIGHT COLON, BIOPSY: ARCHITECTURALLY NORMAL COLONIC GLANDULAR MUCOSA - NO DIAGNOSTIC EVIDENCE OF LYMPHOCYTIC/MICROSCOPIC OR COLLAGENOUS COLITIS D: LEFT COLON, BIOPSY: ARCHITECTURALLY NORMAL COLONIC GLANDULAR MUCOSA - NO DIAGNOSTIC EVIDENCE OF LYMPHOCYTIC/MICROSCOPIC OR COLLAGENOUS COLITIS - FOCAL MUCOSAL LYMPHOID [...] dimension, totally submitted in one cassette. () [facility] Microscopic Description Microscopic examination performed unless gross only specified. Quality was accessed and acceptable. This report was transcribed using voice recognition technology and might contain unintended computerized motorcycle mechanic apprentice errors.[facility] HospitalComment on above:Performed By: #### [id number] #### Abran [facility] [address] [place], [place] [address]Xxvndqgarx Visit Summaryon 88-86-9046Toqjxrtwyo Visit Summary Ambulatory Visit Summary RAMY MARTINEZ [...] release) 4 Capsules By Mouth Once a day(in the morning) Contact prescribing physician if questions [...] you for choosing us for your care. [facility] HospitalGastroenterology Office/Clinic Noteon 40-02-5769Swlrjyjkoojmppgk Office/Clinic NoteGastroenterology Office/Clinic Note Chief Complaint Change in bowel [...] so we will place a referral to [facility] Rheumatology. 2. Rectal prolapse (K62.3: Rectal prolapse) referral placed to colorectal at [facility] Colonoscopy 09/10/23: Impression and Plan 1. Small internal and external hemorrhoids 2. Mild sigmoid diverticulosis 3. Normal colonic mucosa throughout the colon, Sparks score 0. Random biopsies every 10 cm were takento rule out dysplasia 4. Normal examined terminal [...] 0. Random biopsies every 10 cm were takento rule out dysplasia 4. Normal examined terminal [...] is inflammation on colonoscopy in the future, candisc (more content not included)...[facility] HospitalComment on above:Result Comment: Electronically Signed By: Miguel HAQUE, Melissa Talavera\.br\Date and Time Signed: 09/24/24 08:46 EDT\.br\Electronically Co-Signed By: Pamela Millan MA\.br\Date and Time Co-Signed: 09/24/24 08:39 EDTMM TOMOSYNTHESIS SCREENING BIon 72-38-4401[place]bu[place] [address] Mammography Report Signed Patient: RAMY MARTINEZ MR#: [id number] : 1980 Acct:[id number] Age/Sex: 43 / F ADM Date: 01/08/24 Loc: MAMMO Attending Dr: Sherri Reynolds Ordering Physician: Sherri Reynolds Results: Date of Service: 01/08/24 Follow Up: Procedure(s): MM tomosynthesis screening BI Accession Number(s): [id number] cc: Sherri Reynolds; Yaquelin Perez M.D. Patient Name: RAMY MARTINEZ MR#: [id number] : 1980 Exam Date: 01/08/2024 Ordering Doctor: [...] uterine cancer at age 40. LOCATION: [facility] BREAST COMPOSITION: The breasts are heterogeneously [...] PALPABLE LUMP SHOULD BE BIOPSIED. Dictated by: Stella Mcdowell M.D. on 01/11/2024 at 09:08 Approved by: Stella Mcdowell M.D. on 01/11/2024 at 09:13 Dictated By: Stella Mcdowell M.D. Signed By: 01/11/24913 DD/ 2 TD/TT: Hardware Test Engineer:TBHRadiology, Radiologist, MD - 01/11/2024 [place] [address] Mammography Report Signed Patient: RAMY MARTINEZ MR#: [id number] : 1980 Acct:[id number] Age/Sex: 43 / F ADM Date: 01/08/24 Loc: MAMMO Attending Dr: Sherri Reynolds Ordering Physician: Sherri Reynolds Results: Date of Service: 01/08/24 Follow Up: Procedure(s): MM tomosynthesis screening BI Accession Number(s): [id number] cc: Sherri Reynolds; Yaquelin Perez M.D. Patient Name: RAMY MARTINEZ MR#: [id number] : 1980 Exam Date: 01/08/2024 Ordering Doctor: [...] uterine cancer at age 40. LOCATION: [facility] BREAST COMPOSITION: The breasts are heterogeneously [...] PALPABLE LUMP SHOULD BE BIOPSIED. Dictated by: Stella Mcdowell M.D. on 01/11/2024 at 09:08 Approved by: Stella Mcdowell M.D. on 01/11/2024 at 09:13 Dictated By: Stella Mcdowell M.D. Signed By: 01/11/24913 DD/ 2 TD/TT: Hardware Test Engineer: [facility] HealthRadiology Study observation (narrative)[facility] TOMOSYNTHESIS SCREENING BIOrdered By: Radiologist Radiology on 86-85-1613[facility] Work Phone: IGP,APTIMA HPV,AGE GDLNon 94-33-6673FML GDLN ACOG TESTINGNote.[facility] Behavioral HealthComment on above:TESTS RESULT FLAG UNITS REF RANGE LAB Clinician Provided Cytology Information Source.............Cervix;Endocervix No. of containers..01 ThinPrep Vial Age Algo ACOG Amirah... 30-65 01 FLAG LEGEND: L-Low Normal,H-High Normal,LL-Alert Low,HH-Alert High <-Panic Low,>-Panic High,A-Abnormal,AA-Critical Abnormal Performed at: 01 =[address] [address] Zainab Mckeon MD, HPV APTIMANegativeNegativeNOMS HealthcareComment on above:This nucleic acid amplification test detects fourteen high- risk HPV types (16,18,31,33,35,39,45,51,52,56,58,59,66,68) without differentiation. Performed at: =[address] [id number] Animal Tech: Zainab Mckeon MD, Phone: [phone] Performed at: [address] [id number] Animal Tech: Zainab Mckeon MD, Phone: [phone] IGP, APTIMA HPV, RFX 16/18,45Note.NOMS HealthcareComment on above:TESTS RESULT FLAG UNITS REF RANGE LAB DIAGNOSIS: 02 NEGATIVE FOR INTRAEPITHELIAL LESION OR MALIGNANCY. Specimen adequacy: 02 Satisfactory for evaluation. No endocervical component is identified. Performed by: 02 Pamela Cabrera, Capacitor Repairer (ASCP) . 02 Note: Note 02 The [...] Low,>-Panic High,A-Abnormal,AA-Critical Abnormal Performed at: [address] [facility] [address] [address] Zainab Mckeon MD, BRUSH-SPATULA CERVIX ENDOCERVIX CLINISYNCNOMS HealthcareGlucose Test strip manual (Bld) [Mass/Vol]on 12-24-2023 Glucose [Mass/Vol]99 mg/dL74 - 99 mg/dLSt. Anthony's Hospital Interpretation and review of laboratory resultsNormalUOhioHealth Grove City Methodist HospitalGlucose [Mass/Vol]99 mg/qONdgcpn30-13 [facility]c Medical CenterComment on above:Performed By: #### 2341-6 #### SABRINA GERMAN ([id number]) [facility] ([facility]) [address] [place], [place] [address]KIK ( test) IA.rapid Ql (U)Ordered By: Josseline Spring on 99-43-7445ABV ( test) Ql (U)NegativeNEGMercy Health Fairfield HospitalInterpretation and review of laboratory resultsNormMercy Health St. Joseph Warren HospitalHCG ( test) IA.rapid Ql (U)on 45-14-6158VCD ( test) Ql (U)NegativeNormalNEGATIVE [facility]c Medical CenterComment on above:Performed By: #### 51356-8 #### SABRINA GERMAN ([id number]) [facility] ([facility]) [address] [place], [place] [address]Evgcv metabolic 2000 panelon 03-64-8714Gmkxg gap [Moles/Vol]12 mmol/DDvrglf84-03BsgedbyljiJoint Township District Memorial HospitalComment on above: Performed By: #### 3084-1 #### KADE Sandra ([id number]) [facility] ([facility]) [address] [place], [place] [address]Yvvvblt [Mass/Vol]10.2 mg/dLNormal8.6-10.3UnJoint Township District Memorial HospitalComment on above:Performed By: #### 3084-1 #### KADE LORENZ L ([id number]) [facility] ([facility]) [address] [place], [place] [address]Zvgnrram [Moles/Vol]104 mmol/FGkxegq77-271HtzooziocuJoint Township District Memorial HospitalComment on above:Performed By: #### 3084-1 #### KADE LORENZ L ([id number]) [facility] ([facility]) [address] [place], [place] [address]XB1 [Moles/Vol]30 mmol/XNrbbmb73-82YhwgnzrzkvJoint Township District Memorial HospitalComment on above:Performed By: #### 3084-1 #### KADE LORENZ L ([id number]) [facility] ([facility]) [address] [place], [place] [address]Byprhtozto [Mass/Vol]0.66 mg/dLNormal0.50-1.05UnJoint Township District Memorial HospitalComment on above:Performed By: #### 3084-1 #### KADE LORENZ L ([id number]) [facility] ([facility]) [address] [place], [place] [address]SJJ/1.73 sq M.predicted MDRD (S/P/Bld) [Vol rate/Area] mL/min/{1.73_m2}Normal>60UnJoint Township District Memorial HospitalComment on above:Result Comment: Calculations of estimated GFR are performed using the 2020 CKD-EPI Study Refit equation without the race variable for the IDMS-Traceable creatinine methods. https://sandeepsn.banner gateway medical centerjournals.org/content//ASN.1967180578Znwcywnsr By: #### 3084-1 #### KADE Sandra ([id number]) [facility] ([facility]) [address] [place], [place] [address]Vbfcnkp [Mass/Vol]117 mg/bUWojg03-92OhfrgvivrtWayne Healthcare Main CampusComment on above:Performed By: #### 3084-1 #### KADE Sandra ([id number]) [facility] ([facility]) [address] [place] [address]18[address]Exdotjgqa [Moles/Vol]4.9 mmol/LNormal3.5-5.3Way[facility] Healthcare Main CampusComment on above:Performed By: #### 3084-1 #### KADE Sandra ([id number]) [facility] ([facility]) [address] [place] [address] 52090Mdivjn [Moles/Vol]141 mmol/BLgoyrh462-248ZlhfkrhffrJoint Township District Memorial HospitalComment on above:Performed By: #### 3084-1 #### KADE Sandra ([id number]) [facility] ([facility]) [address] [place] [address] 18388Rwkp nitrogen [Mass/Vol]7 mg/dLNormal6-23Way[facility] Healthcare Main CampusComment on above:Performed By: #### 3084-1 #### KADE Sandra ([id number]) [facility] ([facility]) [address] [place] [address] 23862Oicj 2 glycoprotein 1 Ab IgA and IgG and IgM panel (S)on 73-59-7472Nuxc 2 glycoprotein 1 IgA Qn (S)34.2 U/mLHigh<20.0Way[facility] Healthcare Main CampusComment on above:Result Comment: Elevated levels of IgA anti-Beta 2 Glycoprotein-I have [...] association with any clinical manifestation of anti-phospholipid syndrome.Performed By: #### 3084-1 #### KADE Sandra ([id number]) [facility] ([facility]) [address] [place] [address] 47549Dqhq 2 glycoprotein 1 IgG Qn (S)2.6 U/mLNormal<20.0Way[facility] Healthcare Main CampusComment on above:Result Comment: Elevated levels of IgG anti-Beta 2 Glycoprotein-I on 2 occasions at least 12 weeks apart are laboratory criteria for anti-phospholipid syndrome according to an international consensus (J Thromb Haemost 2006 4:295).Performed By: #### 3084-1 #### KADE Sandra ([id number]) [facility] ([facility]) [address] [place] [address] 41315Ndye 2 glycoprotein 1 IgM Qn (S)27.5 U/mLHigh<20.0[facility] Main CampusComment on above:Result Comment: Elevated levels of IgM anti-Beta 2 Glycoprotein-I on 2 occasions at least 12 weeks apart are laboratory criteria for anti-phospholipid syndrome according to an international consensus (J Thromb Haemost 2006 4:295). IgM anti-Beta 2 Glycoprotein-I tends to give false positive results in the low positive range, especially in the presence of rheumatoid factor or cryoglobulins.Performed By: #### 3084-1 #### KADE Sandra ([id number]) [facility] ([facility]) [address] [place] [address] 91137K reactive proteinon 28-77-0052ZJD [Mass/Vol]mg/LNormal<1.00 [facility] Main CampusComment on above:Performed By: #### 1988-5 #### KADE Sandra ([id number]) [facility] ([facility]) [address] [place] [address] 09124Ftehjuzqmet 38-28-641699348986-nzbrteckdcllbo D3 [Mass/Vol]65 ng/mL Zndoih36-720VhsnbhyoafWayne Healthcare Main CampusComment on above:Order Comment: Deficiency: < 20 ng/ml Insufficiency: 20-29 ng/ml Sufficiency: 30-100 ng/ml This assay accurately quantifies the sum of Vitamin D3, 25-Hydroxy and Vitamin D2,25-Hydroxy.Performed By: #### 1989-3 #### KADE Sandra ([id number]) [facility] ([facility]) [address] [place] [address] 04450Fmrnpqgsnmv Ab IA Qn (S)on 02-87-2229Dwxafvfvkus IgA Qn39.0 APL U/mLHigh<20.0[facility] Main CampusComment on above: Result Comment: Elevated levels of IgA anti-cardiolipin have not been included in the laboratory criteria for anti-phospholipid syndrome according to an international consensus (J Thromb Haemost 2006 4:295). It may be helpful in identifying subgroups of patients at risk for specific clinical manifestations of anti-phospholipid syndrome.Performed By: #### 3180-7 #### KADE Sandra ([id number]) [facility] ([facility]) [address] [place] [address] 54[address]Ymizmgughlj IgG IA Qn (S)2.4 GPL U/mLNormal<20.0[facility] Main CampusComment on above:Result Comment: Elevated levels of IgG anti-cardiolipin on 2 occasions at least 12 weeks apart are laboratory criteria for anti-phospholipid syndrome according to an international consensus (J Thromb Haemost 2006 4:295).Performed By: #### 3180-7 #### KADE Sandra ([id number]) [facility] ([facility]) [address] [place] [address] 93636Hnmspnjlvyl IgM IA Qn (S)27.7 MPL U/mLHigh<20.0[facility] Main CampusComment on above:Result Comment: Elevated levels of IgM anti-cardiolipin on 2 occasions at least 12 weeks apart are laboratory criteria for anti-phospholipid syndrome according to an international consensus (J Thromb Haemost 2006 4:295). IgM anti-cardiolipin tends to give false positive results in the low positive range, especially in the presence of rheumatoid factor or cryoglobulins.Performed By: #### 3180-7 #### KADE Sandra ([id number]) [facility] ([facility]) [address] [place] [address] 17009Cninoicrrs C3on 27-68-4829Xfjivbsewn C3 [Mass/Vol]101 mg/dL Stecqu32-059GyldqwwotkJoint Township District Memorial HospitalComment on above: Performed By: #### 4485-9 #### KADE Sandra ([id number]) [facility] ([facility]) [address] [place] [address] 89727Qdpjbwqcax C4on 76-57-5004Swybltcdwu C4 [Mass/Vol]14 mg/dL Zzrxbx11-35SmkvxpqkhfJoint Township District Memorial HospitalComment on above: Performed By: #### 4498-2 #### KADE Sandra ([id number]) [facility] ([facility]) [address] [place] [address] 63424Zjlket citrullinated peptide Ab.IgGon 47-43-8933Zrzhqh citrullinated peptide IgG Qn<1Normal<3UnJoint Township District Memorial HospitalComment on above:Order Comment: THE TEST FOR ANTIBODIES SPECIFIC FOR CYCLIC CITRULLINATED PEPTIDE (CCP) HAS SHOWN TO BE VALUABLE IN THE DIAGNOSIS OF RHEUMATOID ARTHRITIS. THE DIAGNOSTIC VALUE OF ANTIBODIES TO CCP IN JUVENILE RHEUMATOID ARTHRITIS PATIENTS HAS NOT BEEN DETERMINED. ANTIBODIES TO CENTROMERE OR SS-A AND MYELOMA IGG MAY BE REACTIVE IN THIS ASSAY.Result Comment: NEGATIVE < 3 U/ML POSITIVE >=3 U/MLPerformed By: #### 33343-1 ###Kaur Sandra ([id number]) [facility] ([facility]) [address] [place] [address] 23594VSN Westergren method (Bld) [Velocity]on 43-72-3800QOA (Bld) [Velocity]mm/hNormal0-20UnJoint Township District Memorial HospitalComment on above:Performed By: #### 4537-7 ###Kaur Sandra ([id number]) [facility] ([facility]) [address] [place] [address] 79095Tkobezgofvg nuclear Ab panel (S)on 26-06-9565Hmingulvnb protein B Ab Qn (S)<0.2Normal<1.0[facility] Comment on above:Result Comment: < 1.0 = NEGATIVE >=1.0 = POSITIVEPerformed By: #### 3084-1 #### KADE Sandra ([id number]) [facility] ([facility]) [address] [place] [address] 06928Hpwltfnbf Ab Qn<0.2Normal<1.0UnJoint Township District Memorial HospitalComment on above:Result Comment: < 1.0 = NEGATIVE >=1.0 = POSITIVEPerformed By: #### 3084-1 #### KADE Sandra ([id number]) [facility] ([facility]) [address] [place] [address] 87955XJL double strand Ab Qn (S)1.0 [IU]/mLNormal<5.0UnJoint Township District Memorial HospitalComment on above:Result Comment: NEGATIVE: <= 4 IU/ML EQUIVOCAL: 5- 9 IU/ML POSITIVE: >=10 IU/MLPerformed By: #### 3084-1 #### KADE Sandra ([id number]) [facility] ([facility]) [address] [place] [address] 06813Th-6 extractable nuclear Ab IA Ql (S)<0.2Normal<1.0UnJoint Township District Memorial HospitalComment on above:Result Comment: < 1.0 = NEGATIVE >=1.0 = POSITIVEPerformed By: #### 3084-1 #### KADE Sandra ([id number]) [facility] ([facility]) [address] [place] [address] 42672Vuomfrxhgtkmueqxm extractable nuclear Ab IA Qn (S)0.6 AI Normal<1.0UnJoint Township District Memorial HospitalComment on above:Result Comment: < 1.0 = NEGATIVE >=1.0 = POSITIVEPerformed By: #### 3084-1 #### KADE Sandra ([id number]) [facility] ([facility]) [address] [place] [address] 93091Ecylslxcd P Ab Qn (S)<0.2Normal<1.0UnJoint Township District Memorial HospitalComment on above:Result Comment: < 1.0 = NEGATIVE >=1.0 = POSITIVEPerformed By: #### 3084-1 #### KADE Sandra ([id number]) [facility] ([facility]) [address] [place] [address] 94044SHB-35 extractable nuclear Ab IA Ql (S)<0.2Normal<1.0 [facility] CampusComment on above:Result Comment: < 1.0 = NEGATIVE >=1.0 = POSITIVEPerformed By: #### 3084-1 #### KADE Sandra ([id number]) [facility] ([facility]) [address] [place] [address] 51869Lmswtrdl syndrome-A extractable nuclear Ab IA Qn (S)<0.2 Normal<1.0UnJoint Township District Memorial HospitalComment on above:Result Comment: < 1.0 = NEGATIVE >=1.0 = POSITIVEPerformed By: #### 3084-1 #### KADE Sandra ([id number]) [facility] ([facility]) [address] [place] [address] 22464Ejwlcivp syndrome-B extractable nuclear Ab IA Qn (S)<0.2 Normal<1.0UnJoint Township District Memorial HospitalComment on above:Result Comment: < 1.0 = NEGATIVE >=1.0 = POSITIVEPerformed By: #### 3084-1 #### KADE Sandra ([id number]) [facility] ([facility]) [address] [place] [address] 84718Oyoey extractable nuclear Ab IA Qn (S)<0.2Normal<1.0 [facility] CampusComment on above:Result Comment: < 1.0 = NEGATIVE >=1.0 = POSITIVEPerformed By: #### 3084-1 #### KADE Sandra ([id number]) [facility] ([facility]) [address] [place] [address] 44422Oigyw extractable nuclear Ab+Ribonucleoprotein extractable nuclear Ab IA Ql (S)<0.2Normal<1.0UnJoint Township District Memorial Hospital Comment on above:Result Comment: < 1.0 = NEGATIVE >=1.0 = POSITIVEPerformed By: #### 3084-1 #### KADE Sandra ([id number]) [facility] ([facility]) [address] [place] [address] 13165Yjigjpu Abon 89-79-4518Hiapgtm Ab Hep2 substrate Ql (S) NegativeNormalNegativeUnJoint Township District Memorial HospitalComment on above:Result Comment: The Antinuclear Antibody (JERZY) test was performed using indirect immunofluorescence assay with HEp-2 cells slide.Performed By: #### 3084-1 #### KADE Sandra ([id number]) [facility] ([facility]) [address] [place] [address] 20165Lmwrtytzx 19-89-2424Bsvgzlk [Mass/Vol]6.8 g/dLNormal6.4-8.2 [facility] CampusComment on above:Performed By: #### 2885-2 #### KADE Sandra ([id number]) [facility] ([facility]) [address] [place] [address] 44637Qnmqgepcus factoron 48-80-8717Aqqlbtbmcs factor Nephelometry Qn (S)<60Ftigcj6-02InybrhbipiJoint Township District Memorial HospitalComment on above:Performed By: #### 18003-6 #### KADE Sandra ([id number]) [facility] ([facility]) [address] [place] [address] 74720IHXKQ PROTEIN ELECTROPHORESIS + IMMUNOFIXATIONon 11-28-2023 Albumin [Mass/Vol]4.4 g/dLNormal3.4-5.0UnJoint Township District Memorial HospitalComment on above:Performed By: #### 3084-1 #### KADE Sandra ([id number]) [facility] ([facility]) [address] [place] [address] 44909WOEMI 1 GLOBULIN0.3 g/dLNormal0.2-0.6UnJoint Township District Memorial HospitalComment on above:Performed By: #### 3084-1 #### KADE Sandra ([id number]) [facility] ([facility]) [address] [place] [address] 27991UDGKX 2 GLOBULIN0.5 g/dLNormal0.4-1.1UnJoint Township District Memorial HospitalComment on above:Performed By: #### 3084-1 #### KADE Sandra ([id number]) [facility] ([facility]) [address] [place] [address] 62517OGLJ GLOBULIN0.6 g/dLNormal0.5-1.2[facility] CampusComment on above:Performed By: #### 3084-1 #### KADE Sandra ([id number]) [facility] ([facility]) [address] [place] [address] 11515EJGTI GLOBULIN1.0 g/dLNormal0.5-1.4[facility] CampusComment on above:Performed By: #### 3084-1 #### KADE Sandra ([id number]) [facility] ([facility]) [address] [place] [address] 19440DRLJUTWQYVFTHO COMMENTDetectedGreene Memorial HospitalComment on above:Performed By: #### 3084-1 #### KADE Sandra ([id number]) [facility] ([facility]) [address] [place] [address] 55325NUNN REVIEW - SERUM IMMUNOFIXATIONSEE COMMENTGreene Memorial HospitalComment on above:Result Comment: Reviewed and approved by ALICE MORALES on 12/03/23 at 8:41 PM. Performed By: #### 3084-1 #### KADE Sandra ([id number]) [facility] ([facility]) [address] [place] [address] 06977QDPE REVIEW-SERUM PROTEIN ELECTROPHORESISSEE COMMENTMarietta Osteopathic ClinicComment on above:Result Comment: Reviewed and approved by ALICE MORALES on 12/03/23 at 8:41 PM. Performed By: #### 3084-1 #### KADE Sandra ([id number]) [facility] ([facility]) [address] [place] [address] 97534WFEDFEF ELECTROPHORESIS COMMENTNormal.Greene Memorial HospitalComment on above:Performed By: #### 3084-1 #### KADE Sandra ([id number]) [facility] ([facility]) [address] [place], [place] [address]Gumgolr 85-60-2143Sxwxl [Mass/Vol]1.8 mg/dLLow2.3-6.7 [facility] CampusComment on above:Result Comment: Venipuncture immediately after or during the administration of Metamizole may lead to falsely low results. Testing should be performed immediately prior to Metamizole dosing.Performed By: #### 3084-1 #### KADE Sandra ([id number]) [facility] ([facility]) [address] [place], [place] [address]VD HAND 3+ VIEWS BILATERALon 14-40-7686IP HAND 3+ VIEWS BILATERALInterpreted By: Daniel Martins, STUDY: XR HAND 3+ VIEWS BILATERAL; ; 11/28/2023 3:12 pm INDICATION: Signs/Symptoms:r/o erosiosn or calcinosis. COMPARISON: None. ACCESSION NUMBER(S): [id number] ORDERING CLINICIAN: JOSEPH SORIANO FINDINGS: Bilateral hands, three views of each There is no fracture. There is no dislocation. There are no degenerative changes. There is no erosion or chondrocalcinosis. There is no soft tissue abnormality seen. IMPRESSION: Normal radiographs of the hands MACRO: None Signed by: Daniel Martins 11/29/2023 8:41 PM Dictation workstation: [id number] Children's HospitalXR SACROILIAC JOINTS 3+ VIEWSon [id number] SACROILIAC JOINTS 3+ VIEWS Interpreted By: Daniel Martins, STUDY: XR SACROILIAC JOINTS 3+ VIEWS; ; 11/28/2023 3:12 pm INDICATION: Signs/Symptoms:r/o erosions or sacroilitis. COMPARISON: None. ACCESSION NUMBER(S): [id number] ORDERING CLINICIAN: JOSEPH SORIANO FINDINGS: SI joints, three views There is no sclerosis or erosions in the SI joints. No degenerative change seen. There is no fracture. There is no dislocation. There is no lytic or sclerotic lesion. There is no soft tissue abnormality seen. IMPRESSION: Normal radiographs of the sacroiliac joints MACRO: None Signed by: Daniel Martins 11/29/2023 8:41 PM Dictation workstation: [id number] Memorial HospitalAnoscopyon [id number] H Liu, MD 10/09/2023 2:20 PM Anoscopy Date/Time: 10/09/2023 1:37 PM Performed by: Denisse Chiang MD Authorized by: Denisse Chiang MD Consent: Consent obtained: Verbal Consent given by: Patient Procedure details: Internal hemorrhoids: yes (Right and left posterior, large, non-bleeding and non-prolapsing on exam today) Post-procedure details: Procedure completion: [facility] Work Phone: [facility] Work Phone: CHEMISTRYOrdered By: SYSTEM SYSTEM on 39-61-122234- hydroxyvitamin D3 [Mass/Vol]20.0 ng/mLLow30.0 - 100.0 ng/mLRemisol ChemCRP [Mass/Vol]mg/dLNormal<=1.9mg/dLRemisol ChemHEMATOLOGYOrdered By: SYSTEM SYSTEM on 64-28-4712Dytqkohzs/100 WBC (Bld)0.6 %Normal0.0 - 2.0 %Remisol Heme Basophils/Leukocytes Auto (Bld) [Pure # fraction]0.0 E9/LNormal0.0 - 0.2 E9/L Remisol HemeEosinophils (Bld) [#/Vol]0.5 E9/LNormal0.0 - 0.5 E9/LRemisol Heme Eosinophils/100 WBC (Bld)8.0 %Normal0.0 - 8.0 %Remisol HemeComment on above: Result Comment: Verified with slide reviewErythrocyte distribution width (RBC) [Ratio]13.1 %Cdlcnk19.9 - 14.2 %Remisol HemeHematocrit (Bld) [Volume fraction] 38.8 %Wnrnow75.0 - 46.0 %Remisol HemeHemoglobin (Bld) [Mass/Vol]12.9 g/dLNormal 12.0 - 16.0 gm/dLRemisol HemeLymphocytes (Bld) [#/Vol]1.5 E9/LNormal1.0 - 4.0 E9/LRemisol HemeLymphocytes/100 WBC (Bld)23.9 %Setkjx57.0 - 50.0 %Remisol Heme MCH (RBC) [Entitic mass]29.3 ovYppapp05.0 - 34.0 pgRemisol HemeMCHC (RBC) [Mass/Vol]33.2 g/cBQncrkt57.4 - 36.0 gm/dLRemisol HemeMCV (RBC) [Entitic vol] 88.2 hVAumvib72.0 - 100.0 fLRemisol HemeMonocytes (Bld) [#/Vol]0.5 E9/LNormal0.2 - 1.0 E9/LRemisol HemeMonocytes/100 WBC (Bld)7.4 %Normal4.0 - 14.0 %Remisol HemeNeutrophils (Bld) [#/Vol]3.8 E9/LNormal2.0 - 7.5 E9/LRemisol Heme Neutrophils/100 WBC (Bld)60.1 %Klxphx02.0 - 75.0 %Remisol OyufAqfxizmw599.0 E9/L Sakrph163.0 - 500.0 E9/LRemisol HemePlatelet mean volume (Bld) [Entitic vol]8.6 fLNormal6.4 - 10.8 fLRemisol HemeRBC (Bld) [#/Vol]4.4 E12/LNormal4.3 - 5.9 E12/L Remisol HemeWBC corrected for nucl RBC Auto (Bld) [#/Vol]6.4 E9/LNormal4.0 - 11.0 E9/LRemisol HemeCholesterol [Mass/volume] in Serum or PlasmaOrdered By: Tyler Roach on 53-85-4771Dveoodmiznt [Mass/Vol]133 mg/dV463-490 [facility] HospitalComment on above:Chol less than 200 mg/dl low riskChol 201-239 mg/dl borderline riskChol 240 mg/dl and greater high risk Cholesterol in LDL Calc [Mass/Vol]Ordered By: Tyler Roach on 15-53-0639Mzwbdheqpcj in LDL [Mass/Vol]78 mg/dL0-100[facility] HospitalComment on above:LDL ATP III CLASSIFICATIONLDL less than 100 mg/dL OptimalLDL 100-129 mg/dL Near or above xetzrvzXLH188-220 mg/dL Borderline highLDL 160-189 mg/dL HighLDL greater than 189 mg/dL Very highCholesterol in VLDL Calc [Mass/Vol]Ordered By: Tyler Roach on 42-72-5178Fppcnaazdrj in VLDL [Mass/Vol]12 mg/dLNewark Hospitalerum or plasma high density lipoprotein (HDL) cholesterol measurementOrdered By: Tyler Roach on 66-28-8213Bzeekpippwl in HDL [Mass/Vol]42 mg/uS74-21XsofleqvtGalion Community HospitalComment on above:HDL CHOL ATP-III CLASSIFICATION Cardiovascular RiskHDL > or equal to 60 mg/dL LOWHDL < 40 mg/dL HIGHSerum or plasma total cholesterol/high density lipoprotein (HDL) cholesterol mass rat Ordered By: Tyler Roach on 49-40-9092Raamanxglfc.total/Cholesterol in HDL [Mass ratio]3.2 {ratio}<5.0[facility] HospitalThyrotropin [Units/volume] in Serum or PlasmaOrdered By: Tyler Roach on 08-29-2022 TSH Qn0.19 m[IU]/L0.45-5.33[facility] HospitalThyroxine (T4) free [Mass/volume] in Serum or PlasmaOrdered By: Tyler Roach on 08-29-2022 Free T4 [Mass/Vol]0.88 ng/dL0.61-1.12[facility] Triglyceride [Mass/volume] in Serum or PlasmaOrdered By: Tyler Roach on 89-45-1010Ldvwxcehdmtu [Mass/Vol]63 mg/dL0-149[facility] HospitalComment on above:TRIG ATP III CLASSIFICATIONTRIG less than 150 mg/dL NormalTRIG 150-199 mg/dL Borderline highTRIG 200-500 mg/dL High TRIG greater than 500 mg/dL Very highStandard traceable to the Center for Disease Conrtrol and Prevention (CDC) test method.Vitamin D+Metabolites [Mass/volume] in Serum or PlasmaOrdered By: Tyler Roach on 17-67-0921Fqjuugj D+Metabolites [Mass/Vol]16.0 ng/gN73-211PvchgifdbGalion Community HospitalComment on above: VITAMIN D STATUS 25(OH)VITAMIN D RANGE (ng/mL) Deficient <20 Insufficient 20 to <22Rdaredowgf41 to 100Reference: John MF,Pasha PASTOR, Benson LOYD, et al. Evaluation,treatment, and prevention of vitamin D deficiency; an Endocrine Society clinical practice guideline. JCEM. 2010; 96(7):1911-30.ACETAMINOPHEN on 89-18-7415Hiqxxrrzuiaqv [Mass/Vol]ug/mLCritically low10.0-30.0The [facility] Md, Cancer CenterComment on above:Performed By: #### SALYC, ACET #### [facility] [address] [place] [address] Dr. Deepak AugustAMYLASEon 33-28-7418Dybwclf [Catalytic activity/Vol]33 U/LNormal 25-115Park[facility] Bryan HospitalComment on above:Performed By: #### BMP, LIVER, LIPA, SHERRI #### [facility] [address] [place] [address] Dr. Deepak Ghotra AUTO DIFFon 87-98-0571EEXP #0.1 103/ulNormal0.0-0.1The [facility] Md, Cancer CenterComment on above:Performed By: #### BMP, LIVER, LIPA, SHERRI #### [facility] [address] [address] [address] Deepak AugustBasophils/100 WBC (Bld)0.5 %Normal0.2-2.0The [facility] Comment on above:Performed By: #### BMP, LIVER, LIPA, SHERRI #### [facility] [address] [place] [address] Dr. Deepak Navas #0.1 103/ulNormal0.0-0.7The [facility] on above: Performed By: #### BMP, LIVER, LIPA, SHERRI #### [facility] [address] [place] [address] Dr. Deepak Horneosinophils/100 WBC (Bld)1.1 %Normal0.9-7.0The [facility] Comment on above:Performed By: #### BMP, LIVER, LIPA, SHERRI #### [facility] [address] [place] [address] Dr. Deepak Hornerythrocyte distribution width (RBC) [Ratio]13.3 %Wlhkhq73.0-15.0 [facility] above:Performed By: #### BMP, LIVER, LIPA, SHERRI #### [facility] [address] [place] [address] Dr. Deepak AugustHematocrit (Bld) [Volume fraction]43.5 %Reunvd75.0-48.0[facility] Center[facility] on above:Performed By: #### BMP, LIVER, LIPA, SHERRI #### [facility] [address] [place] [address] Dr. Deepak AugustHemoglobin (Bld) [Mass/Vol]14.7 g/qCTnrjbd44.0-16.0[facility] [facility] Md, Cancer CenterComment on above:Performed By: #### BMP, LIVER, LIPA, SHERRI #### [facility] [address] [place] [address] Dr. Deepak AugustIG #0.04 10e3/ulCritically high0.00-0.03The [facility] Comment on above:Performed By: #### BMP, LIVER, LIPA, SHERRI #### [facility] [address] [place] [address] Dr. Deepak AugustIG %0.3 %Normal0.0-0.5The [facility], Cancer CenterComment on above: Performed By: #### BMP, LIVER, LIPA, SHERRI #### [facility] [address] [place] [address] Dr. Deepak Jewell #1.4 103/ulNormal1.2-3.8The [facility], Cancer CenterComment on above:Performed By: #### BMP, LIVER, LIPA, SHERRI #### [facility] [address] [place] [address] Dr. Deepak Quezadamphocytes/100 WBC (Bld)11.2 %Critically low20.5-60.0The [facility], Cancer CenterComment on above:Performed By: #### BMP, LIVER, LIPA, SHERRI #### [facility] [address] [place] [address] Dr. Deepak AshbyUAL DIFF REQNONormalThe [facility], Cancer CenterComment on above: Performed By: #### BMP, LIVER, LIPA, SHERRI #### [facility] [address] [place] [address] Dr. Deepak AugustM[facility] (RBC) [Entitic mass]29.5 taJjbkjo36.7-34.0The [facility], Cancer CenterComment on above:Performed By: #### BMP, LIVER, LIPA, SHERRI #### [facility] [address] [place] [address] Dr. Deepak Sweeney (RBC) [Mass/Vol]33.8 g/lNRdatrp38.9-35.2The [facility], Cancer CenterComment on above:Performed By: #### BMP, LIVER, LIPA, SHERRI #### [facility] [address] [place] [address] Dr. Deepak Sweeney (RBC) [Entitic vol]87.2 yADknrgd35.0-99.0The [facility] Md, Cancer CenterComment on above:Performed By: #### BMP, LIVER, LIPA, SHERRI #### [facility] [address] [place] [address] Dr. Deepak Marion #0.7 103/ulNormal0.3-0.8The [facility] Md, Cancer CenterComment on above:Performed By: #### BMP, LIVER, LIPA, SHERRI #### [facility] [address] [place] [address] Dr. Deepak Ybarraocytes/100 WBC (Bld)5.8 %Normal1.7-12.0The [facility] Comment on above:Performed By: #### BMP, LIVER, LIPA, SHERRI #### [facility] [address] [place] [address] Dr. Deepak Tuttle #10.0 103/ulCritically high1.4-6.5The [facility] Comment on above:Performed By: #### BMP, LIVER, LIPA, SHERRI #### [facility] [address] [place] [address] Dr. Deepak Wattsutrophils/100 WBC (Bld)81.1 %Critically high43.0-75.0The [facility], Cancer CenterComment on above:Performed By: #### BMP, LIVER, LIPA, SHERRI #### [facility] [address] [place] [address] Dr. Deepak Hookslet mean volume (Bld) [Entitic vol]10.1 fLNormal9.5-13.5The [facility], Cancer CenterComment on above:Performed By: #### BMP, LIVER, LIPA, SHERRI #### [facility] [address] [place] [address] Dr. Deepak AugustPLT390 103/qwRiyotm519-970Uwf [facility] CenterComment on above: Performed By: #### BMP, LIVER, LIPA, SHERRI #### [facility] [address] [place] [address] Dr. Deepak AugustRBC4.99 106/ulNormal4.20-5.40The [facility], Cancer CenterComment on above:Performed By: #### BMP, LIVER, LIPA, SHERRI #### [facility] [address] [place] [address] Dr. Deepak AugustWBC12.4 103/ulCritically high4.0-11.0The [facility], Cancer CenterComment on above:Performed By: #### BMP, LIVER, LIPA, SHERRI #### [facility] [address] [place] [address] Dr. Deepak AugustDRUG SCREEN RAPID (URINE)on 59-53-4822ZDAHicfoyawKxxmzjMCBKNXRF The [facility], Cancer CenterComment on above:Performed By: #### BMP, LIVER, LIPA, SHERRI #### [facility] [address] [place] [address] Dr. Deepak MartinNegativeNormalNEGATIVEParkview Health Bryan HospitalComment on above: Performed By: #### BMP, LIVER, LIPA, SHERRI #### [facility] [address] [address] [address] Deepak GoffPNegativeNormalNEGATIVEParkview Health Bryan HospitalComment on above: Performed By: #### BMP, LIVER, LIPA, SHERRI #### [facility] [address] [address] [address] Deepak AugustBZONegativeNormalNEGATIVEGalion Community Hospital on above: Performed By: #### BMP, LIVER, LIPA, SHERRI #### [facility] [address] [place] [address] Dr. Deepak GutierrezegativeNormalNEGATIVEParkview Health Bryan HospitalComment on above: Performed By: #### BMP, LIVER, LIPA, SHERRI #### [facility] [address] [place] [address] Dr. Deepak GuillermoProMedica Fostoria Community HospitalComment on above: Result Comment: AMP (Amphetamine): 500ng/mL, BAR (Barbituates): 200 ng/mL, BZO (Benzodiazepines): 150 ng/mL, BUP (Buprenorphine): 10 ng/mL, VERA (Cocaine): 150 ng/mL, mAMP (Methamphetamine): 500 ng/mL, MTD (Methadone): 200 ng/mL, OPI (Opiates): 100 ng/mL, OXY (Oxycodone): 100 ng/mL, PCP (Phencyclidine): 25 ng/mL, PPX (Propoxyphene): 300 ng/mL, THC (Cannabinoids): 50 ng/mL, TCA (Trycyclic Antidepressants): 300 ng/mLPerformed By: #### BMP, LIVER, LIPA, SHERRI #### [facility] [address] [place] [address] Dr. Deepak AugustDRUG CUT HEADERDRUG CLASS TEST SYSTEM CUT-OFF CONCENTRATIONS ARE FOLLOWS:NormalThe [facility] on above:Performed By: #### BMP, LIVER, LIPA, SHERRI #### [facility] [address] [address] [address] Deepak AugustmAMPNegativeNormalNEGATIVEParkview Health Bryan HospitalComment on above: Performed By: #### BMP, LIVER, LIPA, SHERRI #### [facility] [address] [place] [address] Dr. Deepak AugustMTDNegativeNormalNEGFisher-Titus Medical CenterComrehabilitation institute [facility] [place] on above: Performed By: #### BMP, LIVER, LIPA, SHERRI #### [facility] [address] [place] [address] Dr. Deepak EspinozaINegativeNormalNEGFisher-Titus Medical CenterComrehabilitation [facility] [place] on above: Performed By: #### BMP, LIVER, LIPA, SHERRI #### [facility] [address] [place] [address] Dr. Deepak AugustOXYNegativeNormalNEGFisher-Titus Medical CenterComrehabilitation institute [facility] [place] on above: Performed By: #### BMP, LIVER, LIPA, SHERRI #### [facility] [address] [place] [address] Dr. Deepak AugustPCPNegativeNormalNEGFisher-Titus Medical CenterComrehabilitation [facility] [place] on above: Performed By: #### BMP, LIVER, LIPA, SHERRI #### [facility] [address] [place] [address] Dr. Deepak AugustPPXNegativeNormalNEGFisher-Titus Medical CenterComrehabilitation [facility] [place] on above: Performed By: #### BMP, LIVER, LIPA, SHERRI #### [facility] [address] [place] [address] Dr. Deepak AugustTCAPositiveAbnormalNEGATIVEParkview Health Bryan HospitalComrehabilitation institute [facility] [place] on above: Performed By: #### BMP, LIVER, LIPA, SHERRI #### [facility] [address] [place] [address] Dr. Deepak GoCPositiveAbnormalNEGFisher-Titus Medical CenterComrehabilitation [facility] [place] on above: Performed By: #### BMP, LIVER, LIPA, SHERRI #### [facility] [address] [place] [address] Dr. Sotelo ChangER URINE PROFILEon [id number] Ql (U)NegativeNormal NEGATIVEParkview Health Bryan HospitalComment on above:Performed By: #### BMP, LIVER, LIPA, SHERRI #### [facility] [address] [address] [address] Deepak Jeong (U)CLEARNormalCLEARParkview Health Bryan HospitalComment on above: Performed By: #### BMP, LIVER, LIPA, SHERRI #### [facility] [address] [address] [address] Deepak Alas (U)YELLOWNormalYELLOWParkview Health Bryan HospitalComment on above: Performed By: #### BMP, LIVER, LIPA, SHERRI #### [facility] [address] [address] [address] Deepak Acosta micrscopic examination will be performed if indicated. NormalParkview Health Bryan HospitalComment on above:Performed By: #### BMP, LIVER, LIPA, SHERRI #### [facility] [address] [address] [address] Deepak AugustGlucose Ql (U)NegativeNormalNEGATIVEParkview Health Bryan HospitalComment on above:Performed By: #### BMP, LIVER, LIPA, SHERRI #### [facility] [address] [address] [address] Deepak AugustHemoglobin Ql (U)NegativeNormalNEGFisher-Titus Medical Center Comment on above:Performed By: #### BMP, LIVER, LIPA, SHERRI #### [facility] [address] [address] [address] Deepak AugustKetones Ql (U)15 mg/dlAbnormalNEGFisher-Titus Medical Center Comment on above:Performed By: #### BMP, LIVER, LIPA, SHERRI #### [facility] [address] [address] [address] Deepak AugustLEUKOCYTESNegativeNormalNEGFisher-Titus Medical CenterComment on above:Performed By: #### BMP, LIVER, LIPA, SHERRI #### [facility] [address] [address] [address] Deepak AugustNitrite Ql (U)NegativeNormalNEGATIVEThe [facility] CenterComment on above:Performed By: #### BMP, LIVER, LIPA, SHERRI #### [facility] [address] [place] [address] Dr. Deepak Fernandez (U)6.0 [pH]Normal5-9The [facility], Cancer CenterComment on above: Performed By: #### BMP, LIVER, LIPA, SHERRI #### [facility] [address] [place] [address] Dr. Deepak AugustSPEC GRAVITY1.737Ivfyzw6.005-<=1.025The [facility], Cancer CenterComment on above:Performed By: #### BMP, LIVER, LIPA, SHERRI #### [facility] [address] [place] [address] Dr. Deepak Garcia PROTEINNegativeNormalNEGATIVE/ TRACEThe [facility] Comment on above:Performed By: #### BMP, LIVER, LIPA, SHERRI #### [facility] [address] [place] [address] Dr. Deepak Blanchard MICRO INDNOT INDICATEDNoThe [facility]vue HospitalComment on above:Performed By: #### BMP, LIVER, LIPA, SHERRI #### [facility] [address] [place] [address] Dr. Deepak Kothari Qn (U)0.2 {Jerod'U}/dLNormal0.2 - 1.0The [facility], Cancer CenterComment on above:Performed By: #### BMP, LIVER, LIPA, SHERRI #### [facility] [address] [place] [address] Dr. Deepak Sen (BLD ALC)on [id number] NOTENOTE: 80 mg/dl is the legal limit for a blood alcohol levelWooster Community HospitalComment on above: Performed By: #### BMP, LIVER, LIPA, SHERRI #### [facility] [address] [place] [address] Dr. Deepak Caputoanol [Mass/Vol]mg/dLWooster Community HospitalComment on above:Performed By: #### BMP, LIVER, LIPA, SHERRI #### [facility] [address] [address] [address] Deepak AugustLACTATE/LACTIC ACIDon 20-47-7243Usmrwjy [Moles/Vol]1.4 mmol/L Normal0.4-2.0The [facility] Centerment on above:Performed By: #### BMP, LIVER, LIPA, SHERRI #### [facility] [address] [place] [address] Dr. Deepak AugustLIPASEon 78-98-5713Lknzsm [Catalytic activity/Vol]47.0 U/L Critically low73.0-393.0The [facility] Medical Centerment on above:Performed By: #### BMP, LIVER, LIPA, SHERRI #### [facility] [address] [place] [address] Dr. Deepak AugustLIVER PROFILEon 62-32-7174Hyhamob [Mass/Vol]4.2 g/dLNormal3.4-5.0 The [facility], Cancer CenterComment on above:Performed By: #### BMP, LIVER, LIPA, SHERRI #### [facility] [address] [place] [address] Dr. Deepak AugustAlbumin/Globulin [Mass ratio]1.2 {ratio}NormalThe [facility] Cancer CenterComrehabilitation institute of [place] on above:Performed By: #### BMP, LIVER, LIPA, SHERRI #### [facility] [address] [place] [address] Dr. Deepak Everett [Catalytic activity/Vol]67 U/CKjtyqj49-023Dsv [facility], [facility] CenterComment on above:Performed By: #### BMP, LIVER, LIPA, SHERRI #### [facility] [address] [place] [address] Dr. Deepak Lea [Catalytic activity/Vol]21 U/CGeiixj10-94Moy [facility] Medical Centerment on above:Performed By: #### BMP, LIVER, LIPA, SHERRI #### [facility] [address] [place] [address] Dr. Deepak AugustAST [Catalytic activity/Vol]12 U/LCritically vrs66-31Brn [facility] HospitalComment on above:Performed By: #### BMP, LIVER, LIPA, SHERRI #### [facility] [address] [address] [address] Deepak Post, CONJUGATED0.3 mg/dLCritically high0.0-0.2The [facility], Cancer CenterComment on above:Performed By: #### BMP, LIVER, LIPA, SHERRI #### [facility] [address] [address] [address] Deepak Colemanirubin [Mass/Vol]1.4 mg/dLCritically high0.2-1.0The [facility], Cancer CenterComment on above:Performed By: #### BMP, LIVER, LIPA, SHERRI #### [facility] [address] [address] [address] Deepak AugustGlobulin (S) [Mass/Vol]3.6 g/dLNormalThe [facility] Cancer CenterComment on above:Performed By: #### BMP, LIVER, LIPA, SHERRI #### [facility] [address] [place] [address] Dr. Deepak AugustProtein [Mass/Vol]7.8 g/dLNormal6.4-8.2The [facility] Comment on above:Performed By: #### BMP, LIVER, LIPA, SHERRI #### [facility] [address] [place] [address] Dr. Deepak AugustPREGNANCY URon 69-79-1929JGYPBJLPZ, QUALNegativeNormalNEGATIVEThe [facility] Cancer CenterComment on above:Performed By: #### BMP, LIVER, LIPA, SHERRI #### [facility] [address] [place] [address] Dr. Deepak AugustPROF CHEM 8 (BAS METB)on [id number] gap [Moles/Vol]13.5 mmol/LNormalThe [facility], Cancer CenterComment on above:Performed By: #### BMP, LIVER, LIPA, SHERRI #### [facility] [address] [place] [address] Dr. Deepak AugustCalcium [Mass/Vol]9.0 mg/dLNormal8.5-10.1The [facility] Comment on above:Performed By: #### BMP, LIVER, LIPA, SHERRI #### [facility] [address] [address] [address] Deepak AugustChloride [Moles/Vol]104 mmol/KIbqzvg56-470Mxc [facility] Comment on above:Performed By: #### BMP, LIVER, LIPA, SHERRI #### [facility] [address] [address] [address] Deepak AugustCO2 [Moles/Vol]23.8 mmol/XQtxgiy40.0-32.0The [facility] Comment on above:Performed By: #### BMP, LIVER, LIPA, SHERRI #### [facility] [address] [place] [address] Dr. Deepak AugustCreatinine [Mass/Vol]0.82 mg/dLNormal0.55-1.02The [facility] Cancer CenterComment on above:Performed By: #### BMP, LIVER, LIPA, SHERRI #### [facility] [address] [place] [address] Dr. Deepak HorneGFR-AF ALGERIAN>60Normal>=60The [facility], Cancer CenterComment on above:Performed By: #### BMP, LIVER, LIPA, SHERRI #### [facility] [address] [place] [address] Dr. Deepak HorneGFR-NON AF ALGERIAN>60Normal>=60The [facility], Cancer CenterComment on above:Performed By: #### BMP, LIVER, LIPA, SHERRI #### [facility] [address] [place] [address] Dr. Deepak AugustGlucose [Mass/Vol]119 mg/dLCritically zslz21-268Kbn [facility] CenterComment on above:Performed By: #### BMP, LIVER, LIPA, SHERRI #### [facility] [address] [place] [address] Dr. Deepak AugustPotassium [Moles/Vol]3.3 mmol/LCritically low3.5-5.1The [facility], Cancer CenterComment on above:Performed By: #### BMP, LIVER, LIPA, SHERRI #### [facility] [address] [address] [address] Deepak AugustSodium [Moles/Vol]138 mmol/ANqrkxz460-632Zip [facility] Comment on above:Performed By: #### BMP, LIVER, LIPA, SHERRI #### [facility] [address] [address] [address] Deepak AugustUrea nitrogen [Mass/Vol]8.0 mg/dLNormal7.0-18.0The [facility] Cancer CenterComment on above:Performed By: #### BMP, LIVER, LIPA, SHERRI #### [facility] [address] [address] [address] Deepak AugustUrea nitrogen/Creatinine [Mass ratio]9.8 mg/mgNormalThe [facility] CenterComment on above:Performed By: #### BMP, LIVER, LIPA, SHERRI #### [facility] [address] [address] [address] Deepak AugustSALICYLATEon 28-00-2223KWXHIMSWQH<2.8Normal<=19.9The [facility] CenterComment on above:Performed By: #### SALYC, ACET #### [facility] [address] [place] [address] Dr. Deepak uAgustXR CHEST 1 Von [id number] CHEST 1 VEXAMINATION: XR CHEST 1 V HISTORY: Intentional overdose COMPARISON: No [...] of bibasilar atelectasis. Electronically authenticated by: STELLA MCDWOELL Date: 2022-08-28 10:31Wooster Community HospitalFERRITINon 34-93-7005Fxqecdvg [Mass/Vol]56.0 ng/mLNormal 6.2-137.0The [facility] HospitalComment on above:Performed By: #### BMP, LIVER, LIPA, SHERRI #### [facility] [address] [place] [address] Dr. Deepak AugustMAGNESIUMon 41-07-4113Hfyczsnup [Mass/Vol]2.2 mg/dLNormal1.8-2.4 The [facility], Cancer CenterComment on above:Performed By: #### Agatha MG, PHOS #### [facility] [address] [place] [address] Dr. Deepak AugustPHOSPHORUSon 04-00-3090Jdnvljbsa [Mass/Vol]3.6 mg/dLNormal2.6-4.7 The [facility] CenterComment on above:Performed By: #### Agatha MG, PHOS #### [facility] [address] [place] [address] Dr. Deepak AugustPOTASSIUMon 14-86-4183Hgazvzuoc [Moles/Vol]3.8 mmol/LNormal 3.5-5.1The [facility] CenterComment on above:Performed By: #### Agatha MG, PHOS #### [facility] [address] [place] [address] Dr. Deepak Hernandez B12 AND FOLATEon 06-28-3559Yzzjkvwhh (Vitamin B12) [Mass/Vol] 278.0 pg/rDGttvjl750.0-986.0The [facility] CenterComment on above:Performed By: #### BMP, LIVER, LIPA, SHERRI #### [facility] [address] [place] [address] Dr. Deepak AugustFOLATE7.40 ng/mLCritically low8.60-58.90The [facility] Comment on above:Performed By: #### BMP, LIVER, LIPA, SHERRI #### [facility] [address] [place] [address] Dr. Deepak AugustINSULINon 73-69-1385Tmgjpto65.9 uIU/mLNormal2.6-24.9The [facility] CenterComment on above:Performed By: #### BMP, LIVER, LIPA, SHERRI #### [facility] [address] [place] [address] Dr. Deepak Ghotra AUTO DIFFon 25-37-1748BFKK #0.1 103/ulNormal0.0-0.1The [facility] CenterComment on above:Performed By: #### BMP, LIVER, LIPA, SHERRI #### [facility] [address] [place] [address] Dr. Deepak AugustBasophils/100 WBC (Bld)1.0 %Normal0.2-2.0The [facility] Comment on above:Performed By: #### BMP, LIVER, LIPA, SHERRI #### [facility] [address] [place] [address] Dr. Deepak Navas #0.4 103/ulNormal0.0-0.7The [facility] CenterComment on above: Performed By: #### BMP, LIVER, LIPA, SHERRI #### [facility] [address] [place] [address] Dr. Deepak Horneosinophils/100 WBC (Bld)5.4 %Normal0.9-7.0The [facility] Comment on above:Performed By: #### BMP, LIVER, LIPA, SHERRI #### [facility] [address] [place] [address] Dr. Deepak Hornerythrocyte distribution width (RBC) [Ratio]13.0 %Fivspw36.0-15.0 The [facility] CenterComment on above:Performed By: #### BMP, LIVER, LIPA, SHERRI #### [facility] [address] [place] [address] Dr. Deepak AugustHematocrit (Bld) [Volume fraction]40.7 %Vwkhkc09.0-48.0The [facility] CenterComment on above:Performed By: #### BMP, LIVER, LIPA, SHERRI #### [facility] [address] [place] [address] Dr. Deepak AugustHemoglobin (Bld) [Mass/Vol]13.4 g/lQDddpqn57.0-16.0The [facility] Cancer CenterComment on above:Performed By: #### BMP, LIVER, LIPA, SHERRI #### [facility] [address] [place] [address] Dr. Deepak Carlson #0.02 10e3/ulNormal0.00-0.03The [facility] Cancer CenterComment on above:Performed By: #### BMP, LIVER, LIPA, SHERRI #### [facility] [address] [place] [address] Dr. Deepak Carlson %0.3 %Normal0.0-0.5The [facility] Cancer CenterComment on above: Performed By: #### BMP, LIVER, LIPA, SHERRI #### [facility] [address] [place] [address] Dr. Deepak Jewell #1.6 103/ulNormal1.2-3.8The [facility] Cancer CenterComment on above:Performed By: #### BMP, LIVER, LIPA, SHERRI #### [facility] [address] [place] [address] Dr. Deepak Padronhocytes/100 WBC (Bld)23.1 %Wmbzdw57.5-60.0The [facility], Cancer CenterComment on above:Performed By: #### BMP, LIVER, LIPA, SHERRI #### [facility] [address] [place] [address] Dr. Deepak AshbyUAL DIFF REQNONormalThe [facility], Cancer CenterComment on above: Performed By: #### BMP, LIVER, LIPA, SHERRI #### [facility] [address] [place] [address] Dr. Deepak Flanagan (RBC) [Entitic mass]28.6 joXoqyak81.7-34.0The [facility], Cancer CenterComment on above:Performed By: #### BMP, LIVER, LIPA, SHERRI #### [facility] [address] [place] [address] Dr. Deepak Sweeney (RBC) [Mass/Vol]32.9 g/fVCbsglq74.9-35.2The [facility], Cancer CenterComment on above:Performed By: #### BMP, LIVER, LIPA, SHERRI #### [facility] [address] [place], [place] [address] Dr. Deepak Kasper (RBC) [Entitic vol]86.8 sRDkfhnj80.0-99.0The [facility], Cancer CenterComment on above:Performed By: #### BMP, LIVER, LIPA, SHERRI #### [facility] [address] [place] [address] Dr. Deepak Marion #0.5 103/ulNormal0.3-0.8The [facility], Cancer CenterComment on above:Performed By: #### BMP, LIVER, LIPA, SHERRI #### [facility] [address] [place] [address] Dr. Deepak Ybarraocytes/100 WBC (Bld)6.9 %Normal1.7-12.0The [facility] Comment on above:Performed By: #### BMP, LIVER, LIPA, SHERRI #### [facility] [address] [place] [address] Dr. Deepak Tuttle #4.3 103/ulNormal1.4-6.5The [facility], Cancer CenterComment on above:Performed By: #### BMP, LIVER, LIPA, SHERRI #### [facility] [address] [place] [address] Dr. Deepak Wattsutrophils/100 WBC (Bld)63.3 %Rrsguh22.0-75.0The [facility], Cancer CenterComment on above:Performed By: #### BMP, LIVER, LIPA, SHERRI #### [facility] [address] [place] [address] Dr. Deepak Hookslet mean volume (Bld) [Entitic vol]9.7 fLNormal9.5-13.5The [facility], Cancer CenterComment on above:Performed By: #### BMP, LIVER, LIPA, SHERRI #### [facility] [address] [place] [address] Dr. Deepak ChowT463 103/ulCritically jbdb551-400Flp [facility] CenterComment on above:Performed By: #### BMP, LIVER, LIPA, SHERRI #### [facility] [address] [place] [address] Dr. Deepak AugustRBC4.69 106/ulNormal4.20-5.40The [facility], Cancer CenterComment on above:Performed By: #### BMP, LIVER, LIPA, SHERRI #### [facility] [address] [place] [address] Dr. Deepak AugustWBC6.8 103/ulNormal4.0-11.0The [facility], Cancer CenterComment on above: Performed By: #### BMP, LIVER, LIPA, SHERRI #### [facility] [address] [place] [address] Dr. Deepak AugustFRELIAS THYROXINE INDEX T7on 73-88-0751YER1.74Ozcnlj6.30-4.50The [facility] on above:Performed By: #### BMP, LIVER, LIPA, SHERRI #### [facility] [address] [place] [address] Dr. Deepak AugustT3U31.0 %Vesnfb06.0-39.0The [facility], Cancer CenterComment on above: Performed By: #### BMP, LIVER, LIPA, SHERRI #### [facility] [address] [place] [address] Dr. Deepak AugustT4 [Mass/Vol]7.50 ug/dLNormal4.80-13.90The [facility] Comment on above:Performed By: #### BMP, LIVER, LIPA, SHERRI #### [facility] [address] [place] [address] Dr. Deepak AugustGLYCOHEMOGLOBIN A1Con 28-62-1629VCM RECOMMENDATIONSEE BELOWNormal The [facility], Cancer CenterComment on above:Result Comment: ADA RECOMMENDED LIMIT 4.0 - 6.0 ADA THERAPEUTIC TARGET < 7.0 ACTION SUGGESTED > 7.0Performed By: #### A1C #### [facility] [address] [place] [address] Dr. Deepak AugustGlucose [Mass/Vol]114 mg/dLNormalThe [facility], [facility] CenterComment on above:Performed By: #### A1C #### [facility] [address] [place] [address] Dr. Deepak AugustHbA1c (Bld) [Mass fraction]5.6 %Normal4.5-6.2The [facility], Cancer CenterComment on above:Performed By: #### A1C #### [facility] [address] [place] [address] Dr. Deepak Carrasquillo 87-89-3486Gtwd [Mass/Vol]97.0 ug/lKEghrvn78.0-170.0The [facility], Cancer CenterComment on above:Performed By: #### BMP, LIVER, LIPA, SHERRI #### [facility] [address] [place] [address] Dr. Deepak AugustLIPID PROFILEon 61-91-5633URPM-HDL RATIO NORMSEE BELOWWooster Community HospitalComment on above:Result Comment: 3.3 - 4.4 LOW RISK 4.4 - 7.1 AVERAGE RISK 7.1 - 11.0 MODERATE RISK >11.0 HIGH RISKPerformed By: #### BMP, LIVER, LIPA, SHERRI #### [facility] [address] [place] [address] Dr. Deepak Damicoesterol [Mass/Vol]172 mg/dLNormal<=200The [facility] Comment on above:Performed By: #### BMP, LIVER, LIPA, SHERRI #### [facility] [address] [place] [address] Dr. Deepak AugustCholesterol in HDL [Mass/Vol]64 mg/dLCritically wzal13-16Tht [facility] CenterComment on above:Performed By: #### BMP, LIVER, LIPA, SHERRI #### [facility] [address] [place] [address] Dr. Deepak AugustCholesterol in LDL [Mass/Vol]98.0 mg/dLWooster Community HospitalComment on above:Performed By: #### BMP, LIVER, LIPA, SHERRI #### [facility] [address] [place] [address] Dr. Deepak Damicoesterramiro.total/Cholesterol in HDL [Mass ratio]2.7 {ratio} NormalThe [facility], [facility] CenterComment on above:Performed By: #### BMP, LIVER, LIPA, SHERRI #### [facility] [address] [address] [address] Deepak Leal NORMAL> or = 60 mg/dl - LOW CARDIOVASCULAR RISK <40 mg/dl - HIGH CARDIOVASCULAR RISKWooster Community HospitalComment on above:Performed By: #### BMP, LIVER, LIPA, SHERRI #### [facility] [address] [address] [address] Deepak AugustLDL CALC NORMALSEE BELOWWooster Community HospitalComment on above:Result Comment: <100 mg/dl OPTIMAL 100 - 129 mg/dl NEAR OR ABOVE OPTIMAL 130 - 159 mg/dl BORDERLINE HIGH 160 - 189 mg/dl HIGH >190 mg/dl VERY HIGH Performed By: #### BMP, LIVER, LIPA, SHERRI #### [facility] [address] [address] [address] Deepak AugustTriglyceride [Mass/Vol]50 mg/dLNormal<=150The [facility] Comment on above:Performed By: #### BMP, LIVER, LIPA, SHERRI #### [facility] [address] [address] [address] Deepak AugustVLDL CALC10.0 mg/dLNoThe Bellevue HospitalComment on above: Performed By: #### BMP, LIVER, LIPA, SHERRI #### [facility] [address] [address] [address] Deepak AugustPROF 14(COMP METB)on 61-11-7287Usunkjt [Mass/Vol]3.9 g/dLNormal 3.4-5.0The [facility], [facility] CenterComment on above:Performed By: #### BMP, LIVER, LIPA, SHERRI #### [facility] [address] [address] [address] Deepak AugustAlbumin/Globulin [Mass ratio]1.3 {ratio}NormalThe [facility], Cancer CenterComment on above:Performed By: #### BMP, LIVER, LIPA, SHERRI #### [facility] [address] [address] [address] Deepak FloresP [Catalytic activity/Vol]67 U/CLeyqtf06-604Ves [facility], [facility] CenterComment on above:Performed By: #### BMP, LIVER, LIPA, SHERRI #### [facility] [address] [place] [address] Dr. Deepak Lea [Catalytic activity/Vol]39 U/MAwjiay07-47Gwu [facility] CenterComment on above:Performed By: #### BMP, LIVER, LIPA, SHERRI #### [facility] [address] [place] [address] Dr. Deepak Diehlon gap [Moles/Vol]9.4 mmol/LNormalThe [facility], [facility] CenterComment on above:Performed By: #### BMP, LIVER, LIPA, SHERRI #### [facility] [address] [place] [address] Dr. Deepak France [Catalytic activity/Vol]16 U/AXuupjw32-91Fus [facility] CenterComment on above:Performed By: #### BMP, LIVER, LIPA, SHERRI #### [facility] [address] [place] [address] Dr. Deepak AugustBilirubin [Mass/Vol]0.6 mg/dLNormal0.2-1.0[facility] Comment on above:Performed By: #### BMP, LIVER, LIPA, SHERRI #### [facility] [address] [place] [address] Dr. Deepak AugustCalcium [Mass/Vol]8.6 mg/dLNormal8.5-10.1[facility] Comment on above:Performed By: #### BMP, LIVER, LIPA, SHERRI #### [facility] [address] [place] [address] Dr. Deepak AugustChloride [Moles/Vol]105 mmol/AXcitcq62-411Zbn [facility] Comment on above:Performed By: #### BMP, LIVER, LIPA, SHERRI #### [facility] [address] [place] [address] Dr. Deepak AugustCO2 [Moles/Vol]27.7 mmol/DLfvvfs94.0-32.0The [facility] Comment on above:Performed By: #### BMP, LIVER, LIPA, SHERRI #### [facility] [address] [address] [address] Deepak AugustCreatinine [Mass/Vol]0.68 mg/dLNormal0.55-1.02The [facility], [facility] CenterComment on above:Performed By: #### BMP, LIVER, LIPA, SHERRI #### [facility] [address] [place] [address] Dr. Deepka HorneGFR-AF ALGERIAN>60Normal>=60The [facility], [facility] CenterComment on above:Performed By: #### BMP, LIVER, LIPA, SHERRI #### [facility] [address] [place] [address] Dr. Deepak HorneGFR-NON AF ALGERIAN>60Normal>=60The [facility], [facility] CenterComment on above:Performed By: #### BMP, LIVER, LIPA, SHERRI #### [facility] [address] [place] [address] Dr. Deepak AugustGlobulin (S) [Mass/Vol]3.1 g/dLNormalThe [facility] CenterComment on above:Performed By: #### BMP, LIVER, LIPA, SHERRI #### [facility] [address] [place] [address] Dr. Deepak AugustGlucose [Mass/Vol]115 mg/dLCritically gbdu84-768Wio UC Medical Centerment on above:Performed By: #### BMP, LIVER, LIPA, SHERRI #### [facility] [address] [place] [address] Dr. Deepak AugustPotassium [Moles/Vol]4.1 mmol/LNormal3.5-5.1The [facility] Comment on above:Performed By: #### BMP, LIVER, LIPA, SHERRI #### [facility] [address] [place] [address] Dr. Deepak AugustProtein [Mass/Vol]7.0 g/dLNormal6.4-8.2The [facility] Comment on above:Performed By: #### BMP, LIVER, LIPA, SHERRI #### [facility] [address] [place] [address] Dr. Yilan ChangSodium [Moles/Vol]138 mmol/CLobdpk772-231Tso [facility] Comment on above:Performed By: #### BMP, LIVER, LIPA, SHERRI #### [facility] [address] [address] [address] Deepak Murray nitrogen [Mass/Vol]6.0 mg/dLCritically low7.0-18.0The [facility], [facility] CenterComment on above:Performed By: #### DONATO, LIVER, LIPA, SHERRI #### [facility] [address] [address] [address] Deepak Murray nitrogen/Creatinine [Mass ratio]8.8 mg/mgNormalThe [facility], [facility] CenterComment on above:Performed By: #### DONATO, LIVER, LIPA, SHERRI #### [facility] [address] [address] [address] Deepak Chapa 69-96-6907SHM9.860 uIU/mLNormal0.358-3.740The [facility], [facility] CenterComment on above:Performed By: #### DONATO, LIVER, LIPA, SHERRI #### [facility] [address] [address] [address] Deepak uAgustMG MAMM SCREEN 3D FAISAL CADon 84-09-4037GG MAMM SCREEN 3D FAISAL CAD Patient: RAMY MARTINEZ Exam Date: 02/01/2022 : 1980 Gender:F Ordering : DR JOHN PATTON . Admission #: [id number] Family : Order #: [id number] CLICK HERE TO VIEW EXAM RADIOLOGY REPORT [...] uterine cancer at age 40. LOCATION: [facility] BREAST COMPOSITION: Heterogeneously dense,which may obscure [...] by: Krystal Vasquez MD on 02/01/2022 at 08:53[facility] HospitalOG PANEL 2: 30 to 65on 01-31-2022..NormalParkview Health Bryan HospitalComment on above:Result Comment: Performed at: WBPerformed By: #### BMP, LIVER, LIPA, SHERRI #### [facility] [address] [place] [address] Dr. Deepak AugustAge Gdln ACOG Qlftgiq05-83WkbjkrYcbWooster Community HospitalComment on above:Performed By: #### BMP, LIVER, LIPA, SHERRI #### [facility] [address] [place] [address] Dr. Deepak AugustDIAGNOSIS:CommentNoThe Bellevue HospitalComment on above: Result Comment: NEGATIVE FOR INTRAEPITHELIAL LESION OR MALIGNANCY. FUNGAL ORGANISMS MORPHOLOGICALLY CONSISTENT WITH JAY SPECIES ARE PRESENT. CELLULAR CHANGES ASSOCIATED WITH INFLAMMATION ARE PRESENT. Performed at: WBPerformed By: #### BMP, LIVER, LIPA, SHERRI #### [facility] [address] [place] [address] Dr. Deepak AugustHPV AptimaNegativeNormalNegativeParkview Health Bryan HospitalComment on above:Result Comment: This nucleic acid amplification test detects fourteen high-risk HPV types (16,18,31,33,35,39,45,51,52,56,58,59,66,68) without differentiation. Performed at: =GPerformed By: #### BMP, LIVER, LIPA, SHERRI #### [facility] [address] [place] [address] Dr. Deepak AugustMethodology:CommentWooster Community HospitalComment on above: Result Comment: This liquid based ThinPrep(R) pap test was screened with the use of an image guided system. Performed at: WBPerformed By: #### BMP, LIVER, LIPA, SHERRI #### [facility] [address] [place] [address] Dr. Deepak AugustNote:CommentWayne Hospital on above:Result Comment: The Pap smear is a screening test designed to aid in the detection of premalignant and malignant conditions of the uterine cervix. It is not a diagnostic procedure and should not be used as the sole means of detecting cervical cancer. Both false-positive and false-negative reports do occur. . Performed at: WBPerformed By: #### BMP, LIVER, LIPA, SHERRI #### [facility] [address] [place] [address] Dr. Deepak AugustPerformed by:CommentWayne Hospital on above: Result Comment: Rocío Ortiz, Capacitor Repairer (ASCP) Performed at: WBPerformed By: #### BMP, LIVER, LIPA, SHERRI #### [facility] [address] [place] [address] Dr. Deepak AugustSpecimen adequacy:CommentWayne Hospital on above:Result Comment: Satisfactory for evaluation. No endocervical component is identified. Performed at: WBPerformed By: #### BMP, LIVER, LIPA, SHERRI #### [facility] [address] [place] [address] Dr. Deepak AugustPROF CHEM 8 (BAS METB)on 70-73-6419Mwuzd gap [Moles/Vol]12.9 mmol/LNormalParkview Health Bryan HospitalComment on above:Performed By: #### BMP, LIVER, LIPA, SHERRI #### [facility] [address] [place] [address] Dr. Deepak AugustCalcium [Mass/Vol]8.7 mg/dLNormal8.5-10.1[facility] Comment on above:Performed By: #### BMP, LIVER, LIPA, SHERRI #### [facility] [address] [place] [address] Dr. Deepak AugustChloride [Moles/Vol]105 mmol/RMdjufl43-507AgdParkview Health Bryan Hospital Comment on above:Performed By: #### BMP, LIVER, LIPA, SHERRI #### [facility] [address] [place] [address] Dr. Deepak AugustCO2 [Moles/Vol]25.3 mmol/CCzoquc28.0-32.0The [facility] Comment on above:Performed By: #### BMP, LIVER, LIPA, SHERRI #### [facility] [address] [place] [address] Dr. Deepak AugustCreatinine [Mass/Vol]0.69 mg/dLNormal0.55-1.02The [facility], Cancer CenterComment on above:Performed By: #### BMP, LIVER, LIPA, SHERRI #### [facility] [address] [place] [address] Dr. Deepak HorneGFR-AF ALGERIAN>60Normal>=60The [facility], [facility] CenterComment on above:Performed By: #### BMP, LIVER, LIPA, SHERRI #### [facility] [address] [place] [address] Dr. Deepak HorneGFR-NON AF ALGERIAN>60Normal>=60The [facility], [facility] CenterComment on above:Performed By: #### BMP, LIVER, LIPA, SHERRI #### [facility] [address] [place] [address] Dr. Deepak AugustGlucose [Mass/Vol]114 mg/dLCritically bdau19-162Blr [facility] CenterComment on above:Performed By: #### BMP, LIVER, LIPA, SHERRI #### [facility] [address] [place] [address] Dr. Deepak AugustPotassium [Moles/Vol]4.2 mmol/LNormal3.5-5.1The [facility] Comment on above:Performed By: #### BMP, LIVER, LIPA, SHERRI #### [facility] [address] [place] [address] Dr. Deepak AugustSodium [Moles/Vol]139 mmol/VTahgsq080-620Rem [facility] Comment on above:Performed By: #### BMP, LIVER, LIPA, SHERRI #### [facility] [address] [place] [address] Dr. Deepak AugustUrea nitrogen [Mass/Vol]6.0 mg/dLCritically low7.0-18.0The [facility], Cancer CenterComment on above:Performed By: #### BMP, LIVER, LIPA, SHERRI #### [facility] [address] [address] [address] Deepak AugustUrea nitrogen/Creatinine [Mass ratio]8.7 mg/mgNormalThe [facility] CenterComment on above:Performed By: #### BMP, LIVER, LIPA, SHERRI #### [facility] [address] [address] [address] Deepak August*HCG*POCT*DEVICEon 34-35-7665RFP.beta subunit ( test) Ql (U)NegativeNormalNegativeSelect Medical Specialty Hospital - [facility]ron*POC GLUCOSE BATTERYon 09-03-2017*POC SAMPLE TYPECapillary BloodNoalOKettering Health TroyGlucose mass yiia809 mg/qIHmpx45-82BnubSelect Medical Specialty Hospital - AkronComment on above:Result Comment: No BRAVE per RN: PATIENT TYPESurgical Pathologyon 48-59-4169Ogknlmax PathologySurgical Pathology ReportPatient Name: RAMY MARTINEZ Rec #: [id number] Physician: LUIS GARCÍA--- Clinical History ---Preop Diagnosis: Ulcerative colitis with other complication. MedicalHistory: Depression. Anemia. Arthritis. Migraine. Diabetes mellitus. UC. Asthma.---Final Pathologic Diagnosis--- A. Colon, ascending, biopsy: - No diagnostic abnormality B. Colon, transverse, biopsy: - No diagnostic abnormality C. Colon, descending, biopsy: - No diagnostic abnormality D. Colon, sigmoid, biopsy: - No diagnostic abnormality E. Rectum, biopsy: - Rectal mucosa with submucosal/intramucosal lipoma (see Note) Note:(E) There is a small focus of benign adipocytes in the rectal biopsy. Thespecific location of the adipocytes cannot be determined due to embeddingartifacts. Although submucosal location is favored, an intramucosal lipomacannot be excluded. Please correlate with clinical and endoscopic findings.Select slides reviewed by Dr. Francisca Chadwick. The patient'shistory of ulcerative colitis is noted. All biopsies arenegative for dysplasia, viral cytopathic effect, or well-formed granuloma. All controls show appropriate reactivity.All immunohistochemistry, in situ hybridization, and histochemical testswere developed by and are performed at the [facility], [address] [place] [address]. All tests reported here, except those addressing HER2 overexpressionas a predictive marker, have not been cleared by or approved by the [place] Foodand Drug Administration (FDA). The laboratory is regulated under CLIA asqualified to perform high-complexity testing. The tests are used forclinical purposes. They should not be regarded as investigational or forresearch. mg03/WUQ976:09/05/2017Electronically Signed ByJunior Hitchcock MD, PhD09/05/2017 17:39:19Professional Interpretation performed at location: [address] [place] [address]---SPECIMEN(S) RECEIVED:---SBXA: Colon, BXB: Colon, BXC: Colon, BXD: [...] is 0.4 cm in greatest dimension. TE 1Lab Use Only: Job ID [id number] description by: Beata GoncalvesMount Carmel Health SystemComment on above:Performed By: #### SURGP ####[facility] Eaowww[address] [place] [address], [place] [address]EwttbtKnox Community Hospital[address] [place] [address]M Reactive Proteinon 06-11-2017C reactive protein (CRP) 3.70 mg/LNormal<10.00[facility] - AkronComment on above:Performed By: #### CBCDFC, CMPN, CRP ####[facility] [place] [address], [address] [place] [id number],PLATELET,DIFFERENTIAL - CCLon 68-20-2783Oby Baso0.10 K/uLHigh0.01-0.08 [facility] - AkronComment on above:Performed By: #### CBCDFC, CMPN, CRP ####[facility] [place] [address] [place], [place] [id number] [place] [address]Nrg Eos1.05 K/uLHigh 0.04-0.36[facility] - AkronComment on above:Performed By: #### CBCDFC, CMPN, CRP ####[facility] [place] [address], [address] [place] [address] Abs Mono0.72 K/uLNormal0.24-0.86[facility] Comment on above:Performed By: #### CBCDFC, CMPN, CRP ####[facility] [place], [place] [address] [place] [address]Nveuswqga/100 WBC Auto (Bld)1.0 %NormalSelect Medical Specialty Hospital - AkronComment on above:Performed By: #### CBCDFC, CMPN, CRP ####[facility] [place] [address], [address] [place] [address]ZSVGKBIHJEWK TYPEElectronic DifferentialNormalOKettering Health TroyComment on above: Performed By: #### CBCDFC, CMPN, CRP ####[facility] [facility], [place] [address]MsmqiiKnox Community Hospital[address] [place] [address] 24188 Eosinophils/100 vpozulpbgf76.2 %NormalSelect Medical Specialty Hospital - AkronComment on above:Performed By: #### CBCDFC, CMPN, CRP ####[facility] [place] [address], [place] [address]XwwynzKnox Community Hospital[address] [place] [address] 28384Hqvduqtuhglm (RBC)4.80 10*6/uLNormal3.93-5.22[facility] Hospital - AkronComment on above:Performed By: #### CBCDFC, CMPN, CRP ####[facility] [place] [address], [place] [address]QaakunKnox Community Hospital[address] [place] [address] 75280Cpfjadeowwwv (RBC)13.1 %Normal 11.7-14.4[facility] Hospital - AkronComment on above:Performed By: #### CBCDFC, CMPN, CRP ####[facility] [place] [address] 40115EfwznfKnox Community Hospital[address] [place] [address] 42300 Hematocrit (HCT)41.8 %Onmaqq04.1-44.9[facility] Comment on above:Performed By: #### CBCDFC, CMPN, CRP ####[facility] [place] [address] 51006WoyczeKnox Community Hospital[address] [place] [address] 33479Kebyvybaud mass conc (Bld)28.5 ehYjvizn86.6-32.2[facility] Hospital - AkronComment on above:Performed By: #### CBCDFC, CMPN, CRP ####[facility] [place] [address]AsxuarKnox Community Hospital[address] [place] [address] 04949Euibtwtxuf mass conc (Bld)32.8 g/oCOmyios11.2-35.5[facility] - AkronComment on above:Performed By: #### CBCDFC, CMPN, CRP ####[facility] [place], [place] [address]PoepqtKnox Community Hospital[address] [place] [address] 62614Cylwbarofb mass conc (Bld)13.7 g/sVOmccdv91.2-15.7[facility] - AkronComment on above:Performed By: #### CBCDFC, CMPN, CRP ####[facility] [place] [address] [place], [place] [address] [place] [address] 74524LVYSDXWP GRANS %0.3 %NormalSelect Medical Specialty Hospital - AkronComment on above:Performed By: #### CBCDFC, CMPN, CRP ####[facility] [place], [place] [address] [place] [address] 65240LIXNGCIF GRANS ABSOLUTE0.03 K/uL Normal0.00-0.03[facility] Hospital - AkronComment on above: Performed By: #### CBCDFC, CMPN, CRP ####[facility] [place] [address] [place], [place] [address] [place] [address] 22936 Lymphocytes2.73 10*3/uLNormal1.18-3.74[facility] - AkronComment on above:Performed By: #### CBCDFC, CMPN, CRP ####[facility] [place], [place] [address] [place] [address] 23549Jnsznbarbqw/100 wimepewrvf84.5 %[facility]wide Children's HospitalComment on above:Performed By: #### CBCDFC, CMPN, CRP ####[facility] [facility], [place] [address]RyoimmKnox Community Hospital[address] [place], [place] [address]IRD03.1 lCItonxz42.4-94.8[facility] - AkronComment on above:Performed By: #### CBCDFC, CMPN, CRP ####[facility] [facility], [place] [address]OpbquuKnox Community Hospital[address] [place] [address] 06530Bymhsvljm/100 leukocytes7.0 %[facility] Children's HospitalComment on above:Performed By: #### CBCDFC, CMPN, CRP ####[facility] [place] [address], [place] [address]RktjubKnox Community Hospital[address] [place] [address] 92035ICCJGGYYVY LEKBBXYEN38.0 %[facility] Comment on above:Performed By: #### CBCDFC, CMPN, CRP ####[facility] [place] [address], [place] [address]QmwcuxKnox Community Hospital[address] [place] [address] 41272Hzxelqkif erythrocytes0.0 /100 WBCNormal0.0-0.2[facility] Hospital - AkronComment on above:Performed By: #### CBCDFC, CMPN, CRP ####[facility] [place] [address], [place] [address]MpekfkKnox Community Hospital[address] [place] [address] 77888Scdaxazc mean volume (PMV)11.1 fLNormal9.4-12.3[facility] Hospital - AkronComment on above: Performed By: #### CBCDFC, CMPN, CRP ####[facility] [place] [address], [place] [address]QgccbbKnox Community Hospital[address] [place] [address] 79481 Fqknywbfp933 10*3/hXOpmh456-787JdlsSelect Medical Specialty Hospital - [place]ron Comment on above:Performed By: #### CBCDFC, CMPN, CRP ####[facility] [place], [place] [address]IanpuzKnox Community Hospital[address] [place] [address] 24772NMTC + Bands,Absolute5.66 K/uLNormal1.56-6.13[facility] - AkronComment on above:Performed By: #### CBCDFC, CMPN, CRP ####[facility] [place] [address] 39722TvgjjcKnox Community Hospital[address] [place] [address] 89274QCE (Leukocytes)10.29 10*3/uL High3.98-10.04[facility] Hospital - AkronComment on above: Performed By: #### CBCDFC, CMPN, CRP ####[facility] [place] [address], [place] [address]XyjchhKnox Community Hospital[address] [place] [address] 26087 Comprehensive Metabolic Panelon 02-61-5529Yjduvsy aminotransferase (ALT)15 U/L Normal9-48[facility] Hospital - AkronComment on above:Performed By: #### CBCDFC, CMPN, CRP ####[facility] [place] [address]QzzwuzKnox Community Hospital[address] [place] [address] 43929 Albumin4.6 g/dLNormal3.5-5.0[facility] - AkronComment on above:Performed By: #### CBCDFC, CMPN, CRP ####[facility] [place] [address] 30892FssgtnKnox Community Hospital[address] [place] [address] 07305Eghbssya phosphatase (ALP)77 U/UUsurcr98-096IrvwSelect Medical Specialty Hospital - AkronComment on above:Performed By: #### CBCDFC, CMPN, CRP ####[facility] [place], [place] [address]QvlfgdKnox Community Hospital[address] [place], [place] [address]Vxfum gap12 mmol/LNormal7-17[facility] - AkronComment on above:Performed By: #### CBCDFC, CMPN, CRP ####[facility] [place], [place] [address]LfuvqxKnox Community Hospital[address] [place], [place] [address]Drauaogvi aminotransferase (AST)14 U/L Kmjzvv34-21AynkSelect Medical Specialty Hospital - AkronComment on above:Performed By: #### CBCDFC, CMPN, CRP ####[facility] [place], [place] [address]VlmdtpKnox Community Hospital[address] [place], [place] [address] Bilirubin (total)0.4 mg/dLNormal<1.5[facility] Comment on above:Performed By: #### CBCDFC, CMPN, CRP ####[facility] [place] [address] 07[address]IhglkyKnox Community Hospital[address] [place] [address] 52160NDI/Creatinine Ratio13 mg/mgNormalOKettering Health TroyComment on above:Performed By: #### CBCDFC, CMPN, CRP ####[facility] [place], [place] [address]FhfdngKnox Community Hospital[address] [place] [address] 33274Cwhiook4.5 mg/dLNormal8.6-10.5[facility] - AkronComment on above:Performed By: #### CBCDFC, CMPN, CRP ####[facility] [place], [place] [address]YgjdpqKnox Community Hospital[address] [place], [place] [address]Mlnpjwua470 mmol/QJpjphf45-218 [facility] - AkronComment on above:Performed By: #### CBCDFC, CMPN, CRP ####[facility] [facility], [place] [address]FqcdupKnox Community Hospital[address] [place] [address] 00852ZY313 mmol/LNormal 22-30[facility] - AkronComment on above:Performed By: #### CBCDFC, CMPN, CRP ####[facility] [facility], [place] [address]McqhdhKnox Community Hospital[address] [place] [address] 84043Dlugcltzdq6.68 mg/dLNormal0.50-1.20[facility] - AkronComment on above: Performed By: #### CBCDFC, CMPN, CRP ####[facility] [place] [address] 14029SpjpdeKnox Community Hospital[address] [place] [address] 38291 eGFR (non-black)mL/min/{1.73_m2}Normal>60[facility] - AkronComment on above:Performed By: #### CBCDFC, CMPN, CRP ####[facility] [place] [address] 26541OfvifgKnox Community Hospital[address] [place] [address] 49449Jzwogtf mass conc90 mg/nQVrrooo96-29FxoqSelect Medical Specialty Hospital - AkronComment on above:Performed By: #### CBCDFC, CMPN, CRP ####[facility] [place], [place] [address]GbuvolKnox Community Hospital[address] [place] [address] 13859Kyjeuysvhg924 mOsm/thBfbwtq505-029MvmnSelect Medical Specialty Hospital - AkronComment on above:Performed By: #### CBCDFC, CMPN, CRP ####[facility] [place], [place] [address]RxlspzKnox Community Hospital[address] [place] [address] 16580Kmuqcqwlq molar conc 3.7 mmol/LNormal3.5-5.0[facility] - AkronComment on above:Performed By: #### CBCDFC, CMPN, CRP ####[facility] [facility], [place] [address]Kxqfii[address] [place], [place] [address] [place], [place] [address]Immkxml2.6 g/dLNormal6.4-8.3[facility] Comment on above:Performed By: #### CBCDFC, CMPN, CRP ####[facility] [place] [address] 79789Sejami145 mmol/ALbpmxj030-731LmfoSelect Medical Specialty Hospital - AkronComment on above:Performed By: #### CBCDFC, CMPN, CRP ####[facility] [facility], [address] [place], [place] [address]Ujov nitrogen9 mg/dLNormal7-22[facility] - AkronComment on above:Performed By: #### CBCDFC, CMPN, CRP ####[facility] [place], [place] [address] Vital Signs Date TimeVital SignValuePerforming UzyfbuhkcEpfolexg87-23-7730 09:35-0400Body mass index (BMI) [Ratio]33.95 kg/r4DyadiijaFlora Franco MELTER CLERK Work Phone: [facility] HealthOdddmbexgt42-69-0648 09:35-0400Body kxysan27.53 kgFlora Franco MELTER CLERK Work Phone: [facility] HealthMqahslqspf29-60-5860 09:35-0400Diastolic blood apbsjehh94 mm[Hg]Flora Franco MELTER CLERK Work Phone: [facility] HealthBmxsavxqkd32-52-9430 09:35-0400Systolic blood bboqslbb745 mm[Hg]Flora De La Rosaerly MELTER CLERK Work Phone: [facility] HealthMhfqcisrtb09-90-4972 15:05-0400Body mass index (BMI) [Ratio]34.03 kg/m6FeblnqigFlora De La Rosaerly MELTER CLERK Work Phone: [facility] HealthSayimevgzg05-85-8089 15:05-0400Body ymoepd86.76 kgFlora De La Rosaerly MELTER CLERK Work Phone: [facility] HealthEtzmmnukgq23-13-1768 15:05-0400Diastolic blood ezkqdunu96 mm[Hg]Flora De La Rosaerly MELTER CLERK Work Phone: [facility] HealthLklmmvuzfp40-35-5995 15:05-0400Systolic blood jynijsjp680 mm[Hg]Flora De La Rosaerly MELTER CLERK Work Phone: [facility] HealthZujmdngbya04-32-3776 08:18-0400Blood Pressure LocationMuhammad Sarmini 085-9149Eipshp-SqghoAdams [facility]05-21-2025 08:18-0400Diastolic blood kegnmlpz88 mm[Hg]Torres Sarmini 508-6648Vaizxx-PvztxAdams County [facility] Center05-21-2025 08:18-0400Heart rate73 /minMuhammad Sarmini 259-5169Mmfhbf-PhlvhAdams County Regional [facility] Center05-21-2025 08:18-0400Systolic blood dmbukmjo430 mm[Hg]Torres Sarmini 372-4744Uwbrhw-LkkzsAdams County Regional Medical Center09-17-2024 15:40-0400Body .1 cmDenisse Chiang MD Work Phone: [facility]09-17-2024 15:40-0400 Body mass index (BMI) [Ratio]29.79 kg/w7AgtbrxpDenisse Chiang MD Work Phone: [facility]09-17-2024 15:40-0400 Body .19 kgMicjana Chiang MD Work Phone: 1(506)674-[address] [place], [place] 3421509-17-2024 15:40-0400 Diastolic blood keqpagsx25 mm[Hg]Denisse Chiang MD Work Phone: 1(751)[address] [place], [place] 5986609-17-2024 15:40-0400 Heart rate76 /Vladimir Chiang MD Work Phone: 1(468)[address] [place], [place] 5986609-17-2024 15:40-0400 Systolic blood yxzadhgc210 mm[Hg]Denisse Chiang MD Work Phone: 1(984)[address] [place], [place] 5986608-29-2024 15:07-0400 Body mass index (BMI) [Ratio]29.64 kg/m2Sherri LARKIN Work Phone: 1(191)[address] [place], [place] 8368608-29-2024 15:07-0400Body xntmiy47.8 kg Sherri LARKIN Work Phone: 1(499)488-[address] [place], [place] [address]Oflkwjduwh49-15-3142 15:07-0400Diastolic blood yrucwvqw42 mm[Hg]Sherri LARKIN Work Phone: 1(943)948-[address] [place] [address]-29-2024 15:07-0400Systolic blood atyliqlb161 mm[Hg]Sherri LARKIN Work Phone: 1(346)[address] [place], [place] 8368608-19-2024 20:30-0400Diastolic blood pafnzgnj96 mm[Hg]Denisse Chiang MD Work Phone: 1(062)[address] [place], [place] 5986608-19-2024 20:30-0400 Heart rate84 /Vladimir Chiang MD Work Phone: 1(935)[address] [place], [place] 5986608-19-2024 20:30-0400 Respiratory rate17 /Vladimir Chiang MD Work Phone: 1(534)[address] [place], [place] 5986608-19-2024 20:30-0400 SaO2% (BldA) [Mass fraction]99 %Denisse Chiang MD Work Phone: 1(822)[address] [place], [place] 5986608-19-2024 20:30-0400 Systolic blood dzskooij565 mm[Hg]Denisse Chiang MD Work Phone: 1(433)[address] [place], [place] 5986608-19-2024 20:00-0400 Body vinxclfwbkt64.2 [degF]Denisse Chiang MD Work Phone: 1(775)[address] [place], [place] 5986608-19-2024 12:43-0400 Body .1 cmDenisse Chiang MD Work Phone: 1(474)[address] [place], [place] 5986608-19-2024 12:43-0400 Body mass index (BMI) [Ratio]28.96 kg/u5FpomrctDenisse Chiang MD Work Phone: 1(766)[address] [place], [place] 5986608-19-2024 12:43-0400 Body ytbucm57.93 kgDenisse Chiang MD Work Phone: 1(650)[address] [place], [place] 5986606-04-2024 13:06-0400 Body sisvpc532.1 cmDenisse Chiang MD Work Phone: 1(789)[address] [place], [place] 5986606-04-2024 13:06-0400 Body mass index (BMI) [Ratio]29.79 kg/s2WwrvrgsDenisse Chiang MD Work Phone: 1(345)[address] [place], [place] 5986606-04-2024 13:06-0400 Body gfufpp82.19 kgDenisse Chiang MD Work Phone: 1(967)[address] [place], [place] 5986606-04-2024 13:06-0400 Diastolic blood bjkyuabh35 mm[Hg]Denisse Chiang MD Work Phone: 1(513)[address] [place], [place] 5986606-04-2024 13:06-0400 Heart rate84 /minDenisse Chiang MD Work Phone: 1(387)[address] [place], [place] 5986606-04-2024 13:06-0400 Systolic blood xbzuzbpy517 mm[Hg]Denisse Chiang MD Work Phone: 1(798)[address] [place], [place] 5986605-21-2024 14:27-0400 Blood Pressure LocationMuyudi Rivera 447-5070Zyxvnp-PthxqMemorial Hospital [facility] Rserid03-92-4791 14:27-0400Diastolic blood apdqmbym33 mm[Hg]Torres Sarmini [phone]-HuqmqAdams [facility]05-21-2024 14:27-0400Heart rate70 /minMuhammad Sarmini 881-8635Jyqrcx-RksgxAdams County [facility] Center05-21-2024 14:27-0400Respiratory rate18 /minMuhammad Sarmini 644-9780Vyyqex-IycqdAdams County Regional Medical Center05-21-2024 14:27-0400Systolic blood iaxrnrje384 mm[Hg]Torres Sarmini 212-1549Xztinx-MsacpAdams County Regional Medical Center05-06-2024 14:15-0400Diastolic blood yrweofzt46 mm[Hg]Torres Sarmini [facility]05-06-2024 14:15-0400Heart rate78 /minMuhammad Sarmini [facility]05-06-2024 14:15-0400 Respiratory rate17 /minMuhammad Sarmini [facility]05-06-2024 14:15-9147OaW6% (BldA) [Mass fraction]100 %Torres Sarmini [facility]05-06-2024 14:15-0400 Systolic blood yntkqlax351 mm[Hg]Torres Sarmini [facility]05-06-2024 14:05-0400 Diastolic blood oftwmywd16 mm[Hg]Torres Sarmini [facility]05-06-2024 14:05-0400Heart rate72 /minMuhammad Sarmini [facility]05-06-2024 14:05-0400 Respiratory rate16 /minMuhammad Sarmini [address] [place], [place] 4717505-06-2024 14:05-6234NzR4% (BldA) [Mass fraction]99 %Torres Sarmini [address] [place], [place] 4717505-06-2024 14:05-0400 Systolic blood miixzlnc574 mm[Hg]Torres Sarmini [address] [place], [place] 4717505-06-2024 14:00-0400Heart rate75 /minMuhammad Sarmini [address] [place], [place] 4717505-06-2024 14:00-0400 Systolic blood kwkutknt791 mm[Hg]Torres Sarmini [address] [place], [place] 4717505-06-2024 13:49-0400Body lpypczanjtk43.7 [degF]Torres Sarmini [address] [place], [place] 4717505-06-2024 13:45-0400 Respiratory rate14 /minMuhammad Sarmini [address] [place], [place] 4717505-06-2024 13:40-0400 Respiratory rate14 /minMuhammad Sarmini [address]05-06-2024 13:35-0400 Respiratory rate13 /minMuhammad Sarmini [address] [place], [place] 4717505-06-2024 11:40-0400Blood Pressure LocationMuhammad Sarmini [address] [place], [place] 4717505-06-2024 11:40-0400Body ixxfjosmcbq35.52 [degF]Torres Sarmini [address]03-06-2024 07:38-0500Blood Pressure LocationMuhammad Sarmini 200-5928Rgiiff-Lpkeg[address] [place] [address] Digestive Cehdwb49-64-0732 07:38-0500Diastolic blood xzmvqotr04 mm[Hg]Torres Sarmini 120-5580Lazrau-SqhbcAdams County Regional [facility] Center03-06-2024 07:38-0500Heart rate80 /minMuhammad Sarmini 014-5029Sjioxd-QuqvcAdams County Regional Medical Center03-06-2024 07:38-0500Respiratory rate18 /minMuhammad Sarmini 094-6125Zewpsj-ZyvgnAdams County Regional Medical Center03-06-2024 07:38-0500Systolic blood yrkvttfh646 mm[Hg]Torres Sarmini 920-3861Wwyust-TzwrzAdams County Regional Medical Center04-27-2023 17:05-0400Body wzufmsomvng18.4 [degF]MD Yaquelin Perez Work Phone: 1(685)372-[address] [place], [place] 7476104-27-2023 17:05-0400 Diastolic blood zzewuegj96 mm[Hg]MD Yaquelin Perez Work Phone: [facility]04-27-2023 17:05-0400 Heart rate72 /minMD Yaquelin Perez Work Phone: 1(121)197-[address] [place], [place] 7476104-27-2023 17:05-0400 Respiratory rate18 /minMD Yaquelin Perez Work Phone: [facility]04-27-2023 17:05-0400 SaO2% (BldA) [Mass fraction]100 %MD Yaquelin Perez Work Phone: [facility]04-27-2023 17:05-0400 Systolic blood vgfujdjo700 mm[Hg]MD Yaquelin Perez Work Phone: [facility]04-25-2023 14:54-0400 Body ujbzrk477.37 cmMD Yaquelin Perez Work Phone: 7(395)306-[address] [place], [place] 7476104-24-2023 17:33-0400 Body hxcois77.61 kgMD Yaquelin Perez Work Phone: [facility]04-26-2022 10:00-0400 Body .1 cmDabronwyn Dewitt Other [employer] Tucker Blair Other 04-26-2022 10:00-0400Body mass index (BMI) [Ratio] 36.61 kg/m2Dabronwyn Dewitt Other [facility] Tucker Blair Other 04-26-2022 10:00-0400Body .79 kgDale Dewitt Other [facility] Tucker Blair Other Encounters Encounter DateEncounter TypeCare ProviderFacilityStart: 10-89-4723uquovngrcxlaureano Talavera SarminiFacility:Luis Enrique DHStart: 02-25-2025 End: 25-83-2527Gudqnr flowsDeondre Franco MELTER CLERK Work Phone: [facility] [place] [facility]BGYNStart: 02-25-2025 End: 17-18-3210Wdpjnv flowsheetFlora Franco MELTER CLERK Work Phone: [facility] [place] [facility]BGYNStart: 02-25-2025 End: 62-50-1543Gdyqwv outpatient visit 15 minutesFlora Franco MELTER CLERK Work Phone: [facility] OBGYNComment on above:Encounter to discuss test results; Breast pain; Pelvic pain in femaleStart: 02-25-2025 End: 55-89-2693zytxzdadvgOYZGXCGM EBERLYNot AvailableStart: 02-13-2025 End: 94-72-9847pkaqrhjftaVMLGVCCJ EBERLYNot AvailableStart: 01-29-2025 End: 21-21-9235Esctrcrvu Result EncounterFlora Franco MELTER CLERK Work Phone: [facility] External Department UnsolicitedStart: 01-29-2025 End: 71-17-8454Yuudwrtrm Result EncounterFlora Franco NP Work Phone: [facility] External Department UnsolicitedStart: 01-29-2025 End: 87-97-3211Trrkqau encounter procedureFlora Franco APRN [facility] Work Phone: Start: 01-29-2025 End: 58-71-9442kzawxvungnAzedfyh M Hoy MD Work Phone: [facility] Work Phone: Start: 01-12-2025 End: 89-17-4087Cawugmm encounter procedureFlora Franco MELTER CLERK Work Phone: noms HealthcareStart: 01-12-2025 End: 77-84-4396Nyiqxaxy preventive med est patient 40-64yrsKrispeter Franco MELTER CLERK Work Phone: [facility] [place] OBGYNComment on above:Pelvic pain in female (Primary Dx); Well woman exam with routine gynecological exam; Encounter for screening mammogram for malignant neoplasm of breast; Breast pain, leftStart: 01-12-2025 End: 73-77-7231subysqqavgRRNFGGGK EBERLYNot AvailableStart: 01-12-2025 End: 60-16-3477Gnyqdf flowsheetFlora Franco MELTER CLERK Work Phone: [facility] [place] [facility]BGYNStart: 01-12-2025 End: 62-08-8024Sizoei flowsheetFlora Franco MELTER CLERK Work Phone: [facility] [place] [facility]BGYNStart: 01-12-2025 End: 62-58-8661Orhxhgize Result EncounterFlora Franco MELTER CLERK Work Phone: [facility] External Department UnsolicitedStart: 01-09-2025 End: 66-84-7067Dkujfxquo Result EncounterSherri LARKIN Work Phone: [facility] External Department UnsolicitedStart: 01-09-2025 End: 91-54-3375Igvnaanfa Result EncounterSherri LARKIN Work Phone: [facility] External Department UnsolicitedStart: 12-29-2024 End: 57-02-9914rvozcgkjdrJECK [facility] Hospitaltart: 11-05-2024 End: 23-08-3085enrcxpwcefGmyvvnpq Talal SarminiFacility:Luis Enrique DHStart: 11-05-2024 End: 33-34-4407Pfheixz encounter procedureMuhammad Talal Sarmini [phone]-NjloaMemorial Hospital [facility] Start: 10-20-2024 End: 23-08-6703dbawaajtikFTIAQV [facility] Start: 10-07-2024 End: 02-71-5556Vox Drop offMuhammad Talal Sarmini [facility] Start: 10-07-2024 End: 95-73-2024fgpakrrymzBbhoccah Talal SarminiFacility:FTNATIVIDAD MEDICAL CENTERtart: 10-07-2024 End: 67-48-5728kynhwabpdyCvsuvkxx Talal SarminiFacility:CD:[id number]: 09-24-2024 End: 09-26-2227bymunkfrulDbbfbaqz Talal SarminiFacility:Luis Enrique DHStart: 09-24-2024 End: 29-42-3866Rayylst encounter procedureMuhammad Talal Sarmini [phone]-IqtxyMemorial Hospital Digestive Health Start: 01-22-2024 End: 22-38-7367Hrnkqg follow up visit related to original Rj Chiang MD Work Phone: [facility] HospitalComment on above:Prolapsed internal hemorrhoids (Primary Dx)Start: 01-22-2024 End: 53-20-3603bvrgnlqiviFSRJWRV H LIUHenry County Hospital AmbulatoryStart: 01-11-2024 End: 92-93-8956Ogtpitazb Result EncounterSherri LARKIN Work Phone: [facility] External Department UnsolicitedStart: 01-11-2024 End: 88-19-4540Lopndrlmo Result EncounterSherri LARKIN Work Phone: [facility] External Department UnsolicitedStart: 01-03-2024 End: 88-53-1403Uprfbog encounter procedureSherri LARKIN Work Phone: [facility] Work Phone: Start: 01-03-2024 End: 98-32-9613Xazhmqdl preventive med est patient 40-64yrsAmy Gail LARKIN Work Phone: [facility] BCP OBComment on above:Well woman exam with routine gynecological exam; Breast cancer screening by mammogramStart: 01-03-2024 End: 04-20-6306Jerccs flowsheetSherri LARKIN Work Phone: [facility] BCP OBStart: 01-03-2024 End: 23-11-4852Xxuegqdvr Result EncounterSherri LARKIN Work Phone: [facility] External Department UnsolicitedStart: 01-03-2024 End: 91-13-1626Ngauohnem Result EncounterSherri LARKIN Work Phone: noms External Department UnsolicitedStart: 12-24-2023 End: 01-50-7043oxmrinszcxYNICWUF H LIUSelect Medical [facility] Clinic [facility] Hospital, Beachwoodtart: 12-24-2023 End: 21-92-6224Kiwcnpirqs hospital visit by physicianDenisse Chiang MD Work Phone: [facility] ORComment on above: Prolapsed internal hemorrhoidsStart: 12-13-2023 End: 57-47-8314cyyssembziGMKZEHZ [facility]tart: 12-13-2023 End: 30-35-2470Fehuvurmf for other preprocedural examinationDOUGLAS [facility] Systemtart: 11-28-2023 End: 12-80-4913pvimuwursyNASEPFI [facility]tart: 11-28-2023 End: 80-74-5696otrajcyhikUVJZAFPiedmont Columbus Regional [facility] North[facility] AmbulatoryStart: 11-28-2023 End: 47-51-1659dfqmpocomzFBNFYYKPeoples Hospitaltart: 10-09-2023 End: 79-96-0606Lineoh outpatient new 30 minutesDenisse Chiang MD Work Phone: [facility] HospitalComment on above:Rectal prolapse (Primary Dx); Internal hemorrhoidsStart: 10-09-2023 End: 06-34-7510pinjwlyllsDYADYKOAspirus Ontonagon Hospital AmbulatoryStart: 09-25-2023 End: 01-35-3388Uratkry encounter procedureMuhamwilder Milleral Yolandamini 248-7376Tgasiq-AljdoMemorial Hospital Digestive [facility] Start: 09-10-2023 End: 92-29-2641Xpixrem encounter procedureMukensington hospitalwilder Milleradan Guerreromini [facility] Start: 07-11-2023 End: 09-38-9658Glxwjcj encounter procedureMuhamwilder Milleral Yolandamini [facility] Start: 07-11-2023 End: 43-05-5878Vrtvjvm encounter procedureMuhammanish Talal Yolandamini [phone]-BbofyMemorial Hospital Digestive Health Start: 08-28-2022 End: 15-52-6488Hzinlwdtlr and management of inpatientMD Yaquelin Hoy Work Phone: [phone] Work Phone: Start: 08-28-2022 End: 23-24-5835cmwcjfylryEG YAQUELIN HOY .Facility:G7Rgfcg: 72-28-8753dcnexhbiwx [facility] SALAMFacility:M9Ellrz: 06-10-2022 End: 02-33-8986mrvutncyyxNG NICOLLE QUINNFacility:L2Zgdhk: 08-30-4157Cyebprcnx for general adult medical examination without abnormal findingsDR YAQUELIN HOY . [facility]: 02-13-2022 End: 64-93-3625qmywzfdmyfRS YAQUELIN HOY .Facility:V7Aaffm: 02-11-2022 End: 17-71-1181hfhmpbwfppYW YAQUELIN HOY .Facility:M6Oaahp: 02-11-2022 End: 93-91-9232Mswkiefre for general adult medical examination without abnormal findingsDR YAQUELIN HOY .Facility:P8Vtjko: 02-01-2022 End: 65-82-3334sbyncaufooMQ JOHN LUIS .Facility:W6Lelet: 01-24-2022 End: 58-53-8796jqdybypwcqXE JOHN LUIS .Facility:B3Mmgmj: 01-19-2022 End: 22-99-0401Haxxstu encounter procedureMaher SALAM [phone]-BvhnnMemorial Hospital Digestive Health Start: 10-12-2021 End: 59-01-1196pidxsynqduOCEGI SALAMFacility:M9Obamc: 08-30-2021 End: 15-49-8400ffzkokbrjgTjzc Braun Other [place] Other start: 60-23-5611Rexzum outpatient visit 15 minutes [facility] DewittMcNairy Regional [facility] NeurosurgeryStart: 08-09-2021 End: 07-78-0363Nzqntxz encounter procedureMD Yaquelin Hoy Work Phone: [facility]-XRay [facility] CampusStart: 09-03-2017 End: 60-90-3674FfyglsjlicWJTGWOA P [facility] CenterStart: 41-15-3577NsevlognrmRIUVEJProMedica Bay Park Hospital CenterStart: 43-99-9356BgztkaxfioMUXCNRMercy Health [facility] Procedures DateProcedureProcedure DetailPerforming ClinicianStart: 21-21-4284Hptkybmlxrq Flora Franco MELTER CLERK Work Phone: Start: 15-10-9465JS PELVIS W/ TRANSVAGINALKristina Salvador MELTER CLERK Work Phone: Start: 71-46-2585UWV,APTIMA HPV,AGE GDLNFlora Salvador MELTER CLERK Work Phone: Start: 34-98-1118Ekgcngmoqks observation [Identifier] in Cervix by Cyto stainFlora Salvador MELTER CLERK Work Phone: Start: 47-17-4380GU TOMOSYNTHESIS SCREENING Felicity Reynolds PA Work Phone: Start: 90-10-9256SyskdzrfzrzPan Ramey PA Work Phone: Start: 96-41-2900QN TOMOSYNTHESIS SCREENING Felicity Reynolds PA Work Phone: Start: 67-92-7186SWG,APTIMA HPV,AGE GDSavanah Reynolds PA Work Phone: Start: 71-08-0279Tlufbzstiat observation [Identifier] in Cervix by Cyto stainDenisse Chiang MD Work Phone: Start: 12-24-2023 End: 40-30-5905Ktueucdfnefhrdyy ntrnl & xtrnl 1 column/groupDenisse Chiang MD Work Phone: Start: 90-66-2515Zrsyb test visual color cmprsn methMeli Chiang MD Work Phone: Start: 99-56-1792Myfdbuz quantitative blood xcpt reagent stripDenisse Chiang MD Work Phone: Start: 25-67-0276DHLGZ OXIMETRY, SPOTDenisse Chiang MD Work Phone: Start: 57-61-3053Jikufpoa dx w/collj spec br/wa spx when prfrmdMchidi Chiang MD Work Phone: Start: 92-90-8332ZasdywewxtnRumkifhh Sarmini Start: 78-35-9752B-ray of cervical spineMD Yaquelin Hoy Work Phone: [phone]: 31-24-3829G-ray of lumbar spine, four viewsMD Yaquelin Hoy Work Phone: Start: 34-63-5505Cfiifkldxybd cholecystectomyMaher SALAM Bilateral tubal ligationMaher SALAM ColonoscopyMaher SALAM Endometrial ablationMaher SALAM Hemorrhoid operationMuhammad Sarmini Hemorrhoids (disorder)Gaspar SALAM Histology tonsillectomyMaher SALAM History of hernia repairMaher SALAM Plan of Treatment DateCare ActivityDetailAuthorStart: 45-57-9314Epnryg Vaccines (1 of 2)Zoster Vaccines (1 of 2)[facility] HospitalStart: 33-15-9568Hfuofwhhu for malignant neoplasm of cervixNOMS HealthcareStart: 36-48-3023Zodlfyfvn for malignant neoplasm of cervixUnMarietta Memorial HospitalStart: 12-23-2026 Diabetes mellitus screeningDiabetes ScreeningUnMarietta Memorial Hospital Start: 95-91-9335Wutlooepi for malignant neoplasm of breastMammogramNOMS HealthcareStart: 10-09-8719Gkoeuvlfb for malignant neoplasm of breastMammogram [facility] HealthcareStart: 03-30-2025 End: 13-96-5279Wodbfck encounter xtgqywhjt63/24/2025 10:20 AM EST Consult ROSA MARIA SCOTT [address] [phone] John Patton DO [address] [place] [address] ROSA MARIA Villarrealrt: 02-25-2025 End: 16-26-4267Hdgcyqm encounter ebzlvwaau18/22/2025 9:30 AM EDT Office Visit ROSA MARIA SCOTT [address] [place] [phone] Folra Franco, MELTER CLERK [address] [place] [address] ArrivedROSA MARIA SCOTT Comment on above:ArrivedStart: 02-10-2025 End: 31-51-1899Wqyrgab encounter vawuwymvh35/07/2025 1:30 PM EDT Office Visit ROSA MARIA SCOTT [address] [place] [address] Flora Franco, MELTER CLERK [address] [place] [address] ROSA MARIA [place] OBGYNStart: 01-12-2025 End: 92-16-0333Yssxnzy encounter procedureNOMS BCP OBComment on above:Arrived Start: 01-12-2025 End: 80-65-9139HL Breast - bilateral DiagnosticBilateral diagnostic mammogram Imaging Routine Breast pain, left Expected: 01/12/2025 (Approximate), Expires: 03/14/2026NOMS HealthcareComment on above:Expected: 01/12/2025 (Approximate), Expires: 03/14/2026Start: 01-12-2025 End: 13-00-3498YH PelvisUS Pelvis w/ TV Imaging Routine Pelvic pain in female Expected: 01/12/2025, Expires: 07/12/2025NOMS HealthcareComment on above: Expected: 01/12/2025, Expires: 07/12/2025Start: 97-35-4911Odkpjmqdu for malignant neoplasm of breastMammogramNOMS HealthcareStart: 68-71-7910Cltelzbar vaccinationInfluenza Vaccine (#1)[facility] HealthcareStart: 84-67-7368WUPZE-19 Vaccine ( season)COVID-19 Vaccine ( season)[facility] HospitalStcedar rapids: 74-08-4745Soasortmk vaccinationUnChildren's Hospital for Rehabilitation: 01-03-2024 End: 82-35-6490Iholfux encounter hskvnseys16/29/2024 3:00 PM EDT Office Visit [facility] BCP OB [address] [place] [address] Sherri Reynolds PA [address] [place] [address] ArrivedNODOWNEY REG[facility] OBComment on above:ArrivedStart: 01-03-2024 End: 28-27-1548QY Breast - bilateral ScreeningBilateral screening mammogram Imaging Routine Breast cancer screening by mammogram Expected: 01/03/2024 (Approximate), Expires: 03/04/2025N[facility]R [facility] Work Phone: comment on above:Expected: 01/03/2024 (Approximate), Expires: 03/04/2025Start: 11-28-2023 End: 35-36-9668Ksqcghg encounter neuwqblar75/24/2024 2:00 PM EDT Office Visit [facility] [address] [place] [address] Joseph Soriano, DO [address] [place] [address] [facility] Start: 95-03-6736XSFHG-19 Vaccine ( season)COVID-19 Vaccine ( season)[facility]: 73-49-3379OekglnobjNewark Hospitaltart: 35-74-4976Secalufq admissionNewark Hospitaltart: 79-86-8878Ipcnsmffa for malignant neoplasm of breast MammogramUnChildren's Hospital for Rehabilitation: 13-48-2436Shxqezlgh vaccination Varicella Vaccines (1 of 2 - 13+ 2-dose series)[facility] Start: 22-11-2793Dnhflmatp for malignant neoplasm of cervixNOMS HealthcareStart: 10-56-4365QIoI/Tdap/Td Vaccines (2 - Tdap)DTaP/Tdap/Td Vaccines (2 - Tdap) [facility]: 13-67-5915Brtbnfowg for malignant neoplasm of cervixUnChildren's Hospital for Rehabilitation: 34-78-7835Qhfmlohw mellitus screeningDiabetes ScreeningUnChildren's Hospital for Rehabilitation: 24-42-2185Pdkryvzkc C screeningHepatitis C ScreeningUnChildren's Hospital for Rehabilitation: 69-48-5830Djpqfanolixj Vaccine: Pediatrics (0 to 5 Years) and At-Risk Patients (6 to 64 Years) (1 of 2 - PCV)Pneumococcal Vaccine: Pediatrics (0 to 5 Years) and At-Risk Patients (6 to 64 Years) (1 of 2 - PCV)[facility]: 76-44-7490SVC Vaccines (2 of 3 - 4-dose series)IPV Vaccines (2 of 3 - 4-dose series)[facility]: 93-93-3025OXM screeningHIV ScreeningPremier Health [facility]: 55-51-4631Dbidh panelLipid PanelPremier Health Miami Valley Hospital: 33-02-7575Rkuczs Adult PhysicalYearly Adult PhysicalUnMarietta Memorial Hospital End: 24-09-9000Xcbmtisepb Pulse oximetry, In Phase 1Continuous Pulse oximetry, In Phase 1 Respiratory Care Routine Continuous until discontinued starting 12/24/2023UnMarietta Memorial Hospital Work Phone: Comment on above:Continuous until discontinued starting 12/24/2023 End: 74-79-0440Ltnpapmnt spirometry InstructIncentive spirometry Instruct Respiratory Care Routine Once for 1 Occurrences starting 12/24/2023 until 12/24/2023[facility] Service Area Work Phone: comment on above:Once for 1 Occurrences starting 12/24/2023 until 12/24/2023atient EducationDepression, Adult (DC) [facility] DC InstructionsWadsworth-Rittman [facility] Work Phone: Patient referralWadsworth-Rittman Hospital Ctr Work Phone: Surgical pathology studyUHHS Service Area Work Phone: Comment on above:Release Upon Ordering for 1 Occurrences starting 12/24/2023, 1 completedTHIN PREP TIS PAP AND HR HPV DNATHIN PREP TIS PAP AND HR HPV DNA Pathology and Cytology Routine Well woman exam with routine gynecological exam Ordered: 01/03/2024[facility] HealthcareComment on above: Ordered: 01/03/2024THIN PREP TIS PAP AND HR HPV DNATHIN PREP TIS PAP AND HR HPV DNA Pathology and Cytology Routine Well woman exam with routine gynecological exam Ordered: 01/12/2025[facility] Work Phone: comment on above:Ordered: 01/12/2025 Immunizations Immunization DateImmunizationNotesCare ZsofhahiGxxkpoit99-36-5393LKWS-QwD-2 (COVID-19) mRNA-1668 vaccineMaher SALAM [phone]-CsuogAdams County Regional Medical Center12-30-2020 SARS-CoV-2 (COVID-19) mRNA-8398 vaccineMaher SALAM 647-5269Kforpb-BhfmiAdams County Regional Medical Center11-19-2020 influenza virus vaccine, unspecified formulationSherri LARKIN Work Phone: [facility] HealthKqqusfxlda81-85-2205imjmkyadk A vaccine, adult dosageMaher SALAM 263-8031Xrxegw-KyrecAdams County Regional Medical Center05-17-2019 measles, mumps and rubella virus vaccineMaher SALAM 501-0812Fjoums-MioubMemorial Hospital Digestive Ypigzs13-28-0756 hepatitis B vaccine, adult dosageMaher SALAM [phone]-QtvzgMemorial Hospital Digestive Togwfv68-35-4170 hepatitis B vaccine, adult dosageMaher SALAM 523-3975Ffrizj-YnhzpMemorial Hospital Digestive Bsxcmz47-13-2982 hepatitis B vaccine, adult dosageMaher SALAM 725-9166Jpqmtj-JqzuoMemorial Hospital Digestive Ygwraw79-34-4870 poliovirus vaccine, unspecified formulationDenisse Chiang MD Work Phone: [facility] Work Phone: NEGATED: Highlighted row has not occurred!07-09-2023 influenza virus vaccine, unspecified formulationMuhammad Sarmini [phone]-FfngiMemorial Hospital Digestive HealthNEGATED: Highlighted row has not occurred!67-66-7707tatghfmqy virus vaccine, unspecified formulationMuhammad Sarmini [phone]-PxtsqMemorial Hospital Digestive HealthNEGATED: Highlighted row has not occurred!23-67-4333auruvhfzt virus vaccine, unspecified formulationMaher SALAM [phone]-KmwduMemorial Hospital Digestive Health Payers DatePayer CategoryPayerPolicy [id number] Health Insurance [id number] Cross Blue ShieldBCBS .[id number] 1.2.840.224340.1.13.647.2.7.3.253820.94310-95-1842Rbshbnj36120810385399-10-5761 XdrnwuwTIG17[id number] 2..840.1.479722.3.579.2.593 13-76-3136Jxifhrn5150721 2..840.1.114119.3.579.2.08531-49-8711Eoczmuy6375630 2.840.1.580854.3.579.2.99624-20-0141Ahiaikk8048655 2.840.1.297369.3.579.2.62078-21-8919Pzoniro4302325 2.16.840.1.560879.3.579.2.52212-46-3268Ckiuwyg4804162 2.840.1.432405.3.579.2.33808-66-3733Ybuukai0736941 2.840.1.064431.3.579.2.24681-55-4600Anmmdsg3661315 2.840.1.947016.3.579.2.95798-03-7615Yznmoxt89681544 2.0.1.102214.3.579.2.[id number] 2.0.1.828209.3.579.2.540351-98-5383Efzhrlz76947317 2..1.276935.3.579.2.569053-80-8262Rmvkoxs08884614 2.0.1.787475.3.57[id number] 2.0.1.467524.3.57[id number] 2.840.1.787361.3.579.2.2[id number] 2.840.1.020530.3.579.2.561038-77-4253Fdzdtwz45782784 2.840.1.106712.3.579.2.593542-38-7244Ybanahs29383862 2.840.1.662652.3.579.2.686768-13-5783Ezzazkg30301630 2..1.497245.3.579.2.073938-05-2928Whuadim31244960 2..1.766920.3.579.2.86596-50-2119Gwutwdw55253497 2..1.941191.3.579.2.80554-85-9736Trcdjxm84760852 2..1.625115.3.579.2.91302-21-7808Ovonvcg65811255 2..1.282334.3.579.2.73397-63-9560Dqohfgy81927286 2..1.520450.3.579.2.90856-51-8282Saewrrk86266614 2..1.634659.3.579.2.748821-13-8424Uenyyuk30346070 2..1.080397.3.579.2.815335-26-4177Curvowp91683602 2..1.585847.3.579.2.400461-15-7207Dtncstu09233913 2..1.461615.3.579.2.990765-28-6801Hwmtkbp65894300 2..1.036859.3.579.2.473992-00-0444Dopl Cross Blue EaqhfkBHK332U53924 2..2.833369.56811727-19-0150Euif-hmp926d45l3-y17d-92sk-0cra-r6wi6y5b076n UnknownSelf [id number] d6v26up0-w138-4h02-62ih-[id number] 2..1.989851.3.579.2.531 Social History DateTypeDetailFacilityStart: 10-10-2019 End: 46-93-7761Kncjygq smoking status NHISNever smoked tobacco (finding) [facility]: 96-22-9632Ims Assigned At [facility] CreekFeMiddletown Hospitaltart: 12-24-2023 End: 25-83-9532Azg Assigned At [facility] [place] Other start: 77-69-1138Ltsjcrp smoking statusNeverPremier Health [facility] Tobacco smoking status NHISTobacco smoking consumption unknownUnMarietta Memorial Hospital Work Phone: Start: 22-52-0110Tar assigned at birthNot on file [facility] Work Phone: Start: 09-29-2023 End: 17-49-2066Gqhbwtbw to SARS-CoV-2 (event)Not sureUnMarietta Memorial HospitalStart: 16-59-5368Tlkyssi use and exposureSmokeless tobacco non-user [facility] Work Phone: Start: 12-24-2023 End: 30-81-3151Psdwkvlhv beverage intakeCurrent drinker of alcohol (finding) [facility] Work Phone: Start: 12-24-2023 End: 77-00-6721Ipvwjisok beverage intakeUnMarietta Memorial Hospital Work Phone: Start: 13-82-1478Mrmbdhh CommentrarelySt. Anthony's Hospital Work Phone: Start: 01-03-2024 End: 03-54-6516Tuugziybe beverage intakeLifetime non-drinker (finding)[facility] HealthcareStart: 59-47-3595Ndvcjo identityIdentifies as female gender (finding) [facility] HealthcareSexual OrientationMemorial Hospital Digestive Health Start: 62-30-2347NiiEzyinl (finding)[facility] Medical Equipment Procedure CodeEquipment CodeEquipment Original TextEquipment IdentifierDates Cervical total disc replacement prosthesis, sterile ()[id number] FDAStart: 10-10-2019 Goals DatePatient GoalDesired Activity/State Functional Status IafxQvsdzjsbnvRraoobPbhjggkj75-54-4688Vgwyqareql StatusN/[facility] Ekqltg88-63-8464Kewabammqs StatusN/[facility] Izopxy46-96-5624Vccfgdezyw StatusN/[facility] 78-21-6017Jcypmqcovi StatusN/[facility] 22-68-6995Egwleyvohs statusPatient at BaselineUniversity Hospitals Parma [facility] Center Work Phone: Mental Status IpacWaxbobycvcTgyyqfDaigiqcd75-61-8263Ixhdhgoca functionCognitive Status Patient at BaselineUniversity Hospitals Parma [facility] Center Work Phone: Clinical Notes 07-21-2021 to 02-25-2025 Note Date & HlwyUpexYkgtoyma95-48-5679 History of Present illness Narrative* Flora Franco NP - 02/25/2025 9:30 AM EDT Reason for Appointment: Patient ID: Ramy Martinez is a 44 y.o. female who presents for Follow-up (Pt present today for f/up pelvic and breast results. Pt was seen on 01/12/2025 for pelvic pain and breast pain. An US and Dx mammogram was given to patient to obtain. ) Patient presents today for Follow up appointment to discuss results. MEDICATIONS No current outpatient medications ALLERGIES Allergies Allergen Reactions Benzonatate Rash and Swelling Other Reaction(s): Swelling Benzoate Cough, Hives and Itching PROBLEMS Active Ambulatory Problems Diagnosis Date Noted [...] Systems Constitutional: Negative. HENT: Negative. Eyes: Negative. Breasts: Continued complaints of breast pain Respiratory: Negative. Cardiovascular: Negative. Gastrointestinal: Negative. Genitourinary: Positive for pelvic pain. Musculoskeletal: Negative. Skin: Negative. Neurological: Negative. All other systems reviewed and are negative. Hematological: Negative. Endocrine: Negative. Allergic/Immunologic: Negative. OBJECTIVE Objective: Physical Exam Constitutional: Appearance: Normal appearance. She is well-developed. Cardiovascular: Rate and Rhythm: Normal rate and [...] nursing note reviewed. Exam conducted with a goodwill ambassador present. Vitals: Estimated body mass index is 33.95 kg/m as calculated from the following: Height as of 04/16/20: 5' 5 . Weight as of this encounter: 204 lb. BP: 104/62 No LMP recorded (lmp unknown). (Menstrual status: No Periods). Assessment/Plan ICD-10-CM 1. Encounter to discuss test results Z71.2 2. Breast pain N64.4 3. Pelvic pain in female R10.20 Patient being seen to follow up on her pelvic US and her diagnostic mammogram results. Pt states she is still having pain no change with either region. Pt stated anytime she has to reach around she has breast pain. She reports breast pain most notable in the evening when she is not wearing a Bra. Evaluated her Bra today that has very little support. She is going to obtain a good supportive sportsBra throughout the day to see if this provides her with some relief. Reviewed pelvic ultrasound today and normal in appearance. She continues to have pain. She reports a family history of endometriosis. She does have a history of colitis and reports yearly colonoscopy. Recommend diagnostic lap at this time and patient is agreeable. Documented by Nisha Headley MA on behalf of: Flora Franco NP documented in this encounterCrittenton Behavioral HealthEneqsaobli78-63-5874 History of Present illness Narrative* Flora Franco NP - 01/12/2025 3:00 PM EDT Reason for Appointment: Patient ID: Ramy Martinez [...] Abd Pain hx. of Inflammatory Bowel COLONOSCOPY 2007 HERNIA REPAIR 2007 TONSILLECTOMY 1987 REVIEW OF [...] nursing note reviewed. Exam conducted with a goodwill ambassador present. Vitals: Estimated body mass index is [...] pain to left breast had mammogram on 01/09/25with changes noted from last year. She has complaints of left breast pain at 8 O'clock and noted tenderness here without palpable mass. Recommend diagnostic mammogram at [facility]. No orders of the defined types were placed in this encounter. Follow Up: Patient is to return in 4 weeks to review transvaginal ultrasound and diagnostic mammogram. Patientwith significant family history of multiple cancers with Mother with a history of lung/brain cancerand maternal grandmother with uterine cancer. Recommend [facility]ics genetic testing. PCP Dr. Perez recently ordered estradiol level and LH level and labs are reviewed with patient today as well. Documented by Alejandra Amanda MA on behalf of: Flora Franco NP documented in this encounterCrittenton Behavioral HealthNrgmwxrlea62-99-0616 NoteSUBJECTIVE Reason for Visit: Ramy Martinez is a [...] inhaler 2 puffs, Every 4 hours PRN kfaagaoqwvq-jspxblnke-kzfqdhhj (Trelegy Ellipta) 200-62.5-25 mcg blister with device [...] or any arrhythmias Str (more content not included)...[facility]06-16-2025 NoteUT Cardiology - [facility] Subjective Ramy Martinez is a [...] (four) hours if needed., Disp: , Rfl: tiwncghdfsp-yvnqbvejk-ieoqzfsn (Trelegy Ellipta) 200-62.5-25 mcg blister with device, [...] HDL 80, TSH 0. (more content not included)...[facility]06-04-2025 Hospital Discharge instructions Follow Up Care 10/08/2024 11:03:25 With:Miguel HAQUE, ABDIAS Osorio, [facility] Address: [address] [place] [address], [address] [phone] When:Within 1 Year(s) [facility] 09-17-2024 History of Present illness Narrative* Denisse Chiang MD - 01/22/2024 3:40 PM EDT HPI Ramy Martinez is a 43 y.o. female who has a hx of pancolonic UC, which was diagnosed in 2006. Shewas started on humira, which caused lupus like symptoms. She also reports developing antibodies to humira. Patient was then switched to Entyvio from 9768-5624. She unfortunately lost insurance and stopped taking it. She is currently taking Mesalamine. She was referred by [facility], Dr. Rivera for [...] score 0. Random biopsies every 10 cm weretaken to rule out dysplasia. 4. 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 traZODone (Desyrel) 50 mg tablet Take 1 tablet (50 mg) by mouth once daily at bedtime. venlafaxine XR (Effexor-XR) 75 mg 24 hr capsule Take 1 capsule (75 mg) by mouth once daily. No current facility-administered medications for this visit. No Known Allergies Review of Systems Constitutional: Negative for chills and fever. Gastrointestinal: Negative for abdominal distention, abdominal pain, anal bleeding, blood in stool,constipation, diarrhea, nausea, rectal pain and vomiting. Genitourinary: [...] MD 01/22/2024 5:08 PM documented in this encounterSt. Anthony's Hospital Work Phone: 1(775) 411-665809-11-2024 Evaluation + Plan note Future Scheduled Tests Laboratory* Vitamin D 25 Hydroxy 01/16/24 * Vitamin D 25 Hydroxy 09/24/24 * CBC w/ Auto Diff 09/24/24 * Comprehensive Metabolic Panel 09/24/24 [facility] 08-29-2024 History of Present illness Narrative* CHAYA Jean - 01/03/2024 3:00 PM EDT Reason for Appointment: Patient ID: Ramy Martinez [...] Abd Pain hx. of Inflammatory Bowel COLONOSCOPY 2007 HERNIA REPAIR 2007 TONSILLECTOMY 1987 REVIEW OF [...] nursing note reviewed. Exam conducted with a goodwill ambassador present. Vitals: Estimated body mass index is [...] behalf of: CHAYA Jean documented in this encounterCrittenton Behavioral HealthAdnddjzxdi48-12-8503 Hospital Discharge instructions* Discharge Instructions* Denisse Chiang MD - 12/24/2023 6:44 PM [...] previous diet. FOLLOW-UP: Please call office at [phone] to schedule follow-up appointment for 3-4 weeks from date of surgery. documented in this [facility] [place] Work Phone: 1(889) 399-656808-19-2024 Note* Op Note - Denisse Chiang MD - 12/24/2023 6:05 PM EDT Excisional Hemorrhoidectomy Operative Note Date: 12/24/2023 OR Location: [facility] OR Name: Ramy Martinez, : 1980, Age: 43 y.o., , Sex: female Diagnosis Pre-op Diagnosis * Prolapsed internal hemorrhoids [K64.8] Post-op Diagnosis * Prolapsed internal hemorrhoids [K64.8] Procedures Excisional hemorrhoidectomy, 2 columns Surgeons * Denisse Chiang - Primary Resident/Fellow/Other Juke Box Servicer: Surgeons and Role: * Krystal Cerrato PA-C [...] HEMORRHOID SURGICAL [place] [address] Staff: Senior Energy Trader: Emily Scrub Person: Denisse Drains and/or Catheters: [...] has been actively warmed in preoperative area. Preopera tive antibiotics have been ordered and given within [...] hemorrhoids. There were no prolapsed internal hemorrhoids. Awell-lubricated digital rectal exam was performed and negative for palpable masses or blood. A lubricated lighted Hill-Brownlee retractor was inserted into the anorectal canal and 360 degree examination performed. There were enlarged internal hemorrhoids in the right lateral and left posterior posit ions that corresponded to the patient's photographed prolapsed internal hemorrhoids. Decision was made to excise these internal hemorrhoids. Attention was directed at the right lateral internal hemorrhoid column first. The hemorrhoid was grasped with Debakey forceps and retracted perpendicular to the anorectal canal. The skin at the anal verge was anesthetized with 0.5% marcaine with epinephrine.Using the #15 scalpel blade, the skin at [...] scrubbed for the entire procedure. Denisse Chiang [facility] Work Phone: 1([phone]) 586-675408-19-2024 Note* Brief Op Note - Denisse Chiang MD - 12/24/2023 6:05 PM EDT Date: 12/24/2023 OR Location: [facility] OR Name: Ramy Martinez, : 1980, Age: 43 y.o., , Sex: female Diagnosis Pre-op Diagnosis * Prolapsed internal hemorrhoids [K64.8] Post-op Diagnosis * Prolapsed internal hemorrhoids [K64.8] Procedures Excisional hemorrhoidectomy, 2 columns Surgeons * Denisse Chiang - Primary Resident/Fellow/Other Juke Box Servicer: Surgeons and Role: * Krystal Cerrato PA-C [...] HEMORRHOID SURGICAL PATHOLOGY EXAM Denisse Chiang MD 831 Staff: Senior Energy Trader: Emily Scrub Person: Denisse Findings: Enlarged right [...] HEMORRHOID SURGICAL PATHOLOGY EXAM Denisse Chiang MD 831 Attending Attestation: I was present and scrubbed for the entire procedure. Denisse Chiang [facility] Work Phone: 1([phone]) 610-394608-19-2024 Miscellaneous Notes* Op Note - Denisse Chiang MD - 12/24/2023 6:05 PM EDT Excisional Hemorrhoidectomy Operative Note Date: 12/24/2023 OR Location: [facility] OR Name: Ramy Martinez, : 1980, Age: 43 y.o., , Sex: female Diagnosis Pre-op Diagnosis * Prolapsed internal hemorrhoids [K64.8] Post-op Diagnosis * Prolapsed internal hemorrhoids [K64.8] Procedures Excisional hemorrhoidectomy, 2 columns Surgeons * Denisse Chiang - Primary Resident/Fellow/Other Juke Box Servicer: Surgeons and Role: * Krystal Cerrato PA-C [...] HEMORRHOID SURGICAL PATHOLOGY [place] [address] Staff: Senior Energy Trader: Emily Galeas Person: Denisse Drains and/or Catheters: [...] has been actively warmed in preoperative area. Preopera tive antibiotics have been ordered and given within [...] hemorrhoids. There were no prolapsed internal hemorrhoids. Awell-lubricated digital rectal exam was performed and negative for palpable masses or blood. A lubricated lighted Michael-Kem retractor was inserted into the anorectal canal and 360 degree examination performed. There were enlarged internal hemorrhoids in the right lateral and left posterior posit ions that corresponded to the patient's photographed prolapsed internal hemorrhoids. Decision was made to excise these internal hemorrhoids. Attention was directed at the right lateral internal hemorrhoid column first. The hemorrhoid was grasped with Debakey forceps and retracted perpendicular to the anorectal canal. The skin at the anal verge was anesthetized with 0.5% marcaine with epinephrine.Using the #15 scalpel blade, the skin at [...] scrubbed for the entire procedure. Denisse Chiang * Brief Op Note - Denisse Chiang MD - 12/24/2023 6:05 PM EDT Date: 12/24/2023 OR Location: [facility] OR Name: Ramy Martinez, : 1980, Age: 43 y.o., , Sex: female Diagnosis Pre-op Diagnosis * Prolapsed internal hemorrhoids [K64.8] Post-op Diagnosis * Prolapsed internal hemorrhoids [K64.8] Procedures Excisional hemorrhoidectomy, 2 columns Surgeons * Denisse Chiang - Primary Resident/Fellow/Other Juke Box Servicer: Surgeons and Role: * Krystal Cerrato PA-C [...] HEMORRHOID SURGICAL PATHOLOGY EXAM Denisse Chiang MD 831 Staff: Senior Energy Trader: Emily Venturaub Person: Denisse Findings: Enlarged right [...] HEMORRHOID SURGICAL [place] [address] Attending Attestation: I was present and scrubbed for the entire procedure. Denisse Chiang documented in this [facility] Work Phone: [phone]) 704-223708-19-2024 Attending History and physical note* Denisse Chiang MD - 12/24/2023 1:30 PM EDT H&P reviewed. The patient was examined and there are no changes to the H&P. Source Note - Denisse Chiang MD - 11/28/2023 11:40 AM EDT HPI Ramy Martinez is a 43 y.o. female who has a hx of pancolonic UC, which was diagnosed in 2006. Shewas started on humira, which caused lupus like symptoms. She also reports developing antibodies to humira. Patient was then switched to Entyvio from 3128-8014. She unfortunately lost insurance and stopped taking it. She is currently taking Mesalamine. She was referred by [facility], Dr. Rivera for [...] score 0. Random biopsies every 10 cm weretaken to rule out dysplasia. 4. Normal examined terminal ileum. Repeat in 1 year. 5. Path demonstrating normal colonic mucosa, however inactive wellhealed chronic colitis cannot be ruled out. Rectum:inactive chronic colitis. 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 Endocrine: [...] incontinence Denisse Chiang MD 11/28/2023 12:[address] [facility] Work Phone: 1([phone]) 441-433908-19-2024 History and physical note* Denisse Chiang MD - 12/24/2023 1:30 PM EDT H&P reviewed. The patient was examined and there are no changes to the H&P. Source Note - Denisse Chiang MD - 11/28/2023 11:40 AM EDT HPI Ramy Martinez is a 43 y.o. female who has a hx of pancolonic UC, which was diagnosed in 2006. Shewas started on humira, which caused lupus like symptoms. She also reports developing antibodies to humira. Patient was then switched to Entyvio from 6842-2847. She unfortunately lost insurance and stopped taking it. She is currently taking Mesalamine. She was referred by [facility], Dr. Rivera for [...] score 0. Random biopsies every 10 cm weretaken to rule out dysplasia. 4. Normal examined terminal ileum. Repeat in 1 year. 5. Path demonstrating normal colonic mucosa, however inactive wellhealed chronic colitis cannot be ruled out. Rectum:inactive chronic colitis. 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 Endocrine: [...] MD 11/28/2023 12:04 PM documented in this [facility] Work Phone: 1([phone]) 758-606706-04-2024 History of Present illness Narrative* Denisse Chiang MD - 10/09/2023 1:00 PM EDTAssociated Order(s): Anoscopy Post-Procedure Diagnose(s): Rectal prolapse; Internal hemorrhoids HPI Ramy Martinez is a 43 y.o. female who has a hx of pancolonic UC, which was diagnosed in 2006. Shewas started on humira, which caused lupus like symptoms. She also reports developing antibodies to humira. Patient was then switched to Entyvio from 5766-4010. She unfortunately lost insurance and stopped taking it. She is currently taking Mesalamine. She was referred by [facility], Dr. Rivera for [...] the prolapse random times throughout the day orwhen she is on the toilet. She states that the tissue is prolapsing out more now over the past 6-7 months. She denies any hematochezia or melena, just some occasional blood on toilet paper. She has alow appetite. She has been losing weight voluntarily. [...] score 0. Random biopsies every 10 cm weretaken to rule out dysplasia. 4. Normal examined terminal ileum. Repeat in 1 year. 5. Path demonstrating normal colonic mucosa, however inactive wellhealed chronic colitis cannot be ruled out. Rectum:inactive chronic colitis. 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 [...] left posterior, large, non-bleeding and non-prolapsing on examtoday) Post-procedure details: Procedure completion: Tolerated Assessment and Plan: #Rectal prolapse - None visualized today on exam or with patient sitting on commode - Instructed patient to take a picture of what is prolapsing out from the anus and upload to [facility] for review #Internal hemorrhoids; right and left [...] MD 10/09/2023 1:37 PM documented in this [facility] Work Phone: [phone]) 974-611605-10-2024 Hospital Discharge instructions Follow Up Care 09/14/2023 15:08:58 With:Miguel HAQUE, ABDIAS Osorio, [facility] Address: Jessica Perez, [address] [address] [phone] When:1 year [facility] 05-06-2024 Hospital Discharge instructions Patient Education 09/10/2023 13:55:16 Colonoscopy, Care After Surgery [place]am (CUSTOM) Colonoscopy Care After Surgery Please read the instructions outlined below and refer to this sheet in the next few weeks. These discharge instructions provide you with general information on caring for [facility] Your doctor may also give you [...] Heavy or fried foods are harder to digestand may make you feel nauseated (sick to [...] colon so that bowel contents can move througheasily. You should eat 20 to 35 grams [...] corn, and seeds. This has not been foundto be true. If you find that certain foods create cramping or bloating, avoid that food. Foods high in fiber include: Fresh fruits, fresh vegetables, legumes (beans), whole wheat bread, bran muffins or cereal, and nuts. See the table below for examples of high fiber foods. Remember, your goal is 20- 35 grams per day. Amount of fiber in different foods Food Serving Grams of fiber Fruits Apple (with skin) 1 medium apple 4.4 Banana 1 medium banana 3.1 Oranges 1 orange 3.1 Prunes 1 cup, pitted 12.4 Juices Apple, unsweetened, w/added ascorbic acid 1 cup 0.5 Grapefruit, white, canned, sweetened 1 cup 0.2 Grape, unsweetened, w/added ascorbic acid 1 cup 0.5 [place] 1 cup 0.7 Vegetables Cooked Green beans 1 cup 4.0 Carrots 1/2 cup sliced 2.3 Peas 1 cup 8.8 Potato (baked, with skin) 1 medium potato 3.8 Raw [place] (with peel) 1 cucumber 1.5 Lettuce 1 [...] Peanuts 1/2 cup 7.9 Chart from [facility] 2013. SEEK IMMEDIATE MEDICAL CARE IF: [...] of Agriculture (USDA) National Nutrient Database at: http://www.nal.usda.gov/fnic/foodcomp/search/ Created using data from the USDA National Nutrient Database for Standard Reference. Available at http://www.[employer].usda.gov/fnic/foodcomp/search/. Information adapted from: ExitCare Patient Information 2010 [employer]. [employer] 2012 http://www.[facility]/contents/antbgjxcxkln-wmhymkf-xlkwtn-the-basics 09/10/2023 13:55:11 Hemorrhoids, Vxtd-kn-Opof Hemorrhoids Hemorrhoids are swollen veins that may [...] 3 4 times a day. You may dothis in a bathtub or using a portable sitz bath that fits over the toilet. If told, put ice on the painful area. It may be helpful to use ice between your warm baths. ?Put ice in a plastic bag. ?Place a towel between your skin and the bag. ?Leave the ice on for 20 minutes, 2 3 times a day. General instructions Take koer-jjb-vojitqp and prescription medicines only as told by [...] provider. Document Revised: 11/02/2021 Document Reviewed: 11/02/2021 [employer] Patient Education 2022 [employer]. Follow Up Care 07/11/2023 09:02:57 With:Miguel HAQUE, ABDIAS Osorio, [facility] Address: [address] [place] [address], [address] [address] [phone] When: Unknown Comments:Call for any problems. Office to call for follow up appointment. [facility]05-06-2024 Evaluation + Plan noteExtracted from: Title:ANES Post GeneralAuthor:Benito Mccabe DODate:09/10/23 Plan Transfer/Discharge: Patient exhibiting no signs of N/V. Hydration status is adequate. Extracted from:Title:[facility] PREAuthor:Benito Mccabe DODate:09/10/23 Plan [place] Society of Anesthesiologists (ASA) physical status classification: Class III. Anesthetic Preoperative Plan: Anesthesia General. Future Scheduled Tests Laboratory* Vitamin D 25 Hydroxy 01/16/24 [facility]04-27-2023 Discharge summary Author Tyler quijano [facility] August 31, 2022 8:59amNote Date/TimeApril 2022 8:57am[address] [address] Discharge Summary Signed Patient: Ramy Martinez MR#: [id number] : 1980 Acct:[id number] Age/Sex: 42 / F Adm Date: 3 Loc: Room: [address] [place] [address]: Arleth Roach MD Copies to: MD Yaquelin Bronw MD~ Providers Date of Discharge: 08/31/22 Discharging [...] more than normal but was unable to rememberhow much.? Patient's boyfriend ended up taking her [...] his date was recent. She also mentioned thather mom 5 years ago and that she [...] therapy services available whileon the unit and wasencouraged to participate. Patient reported that she is feeling frustrated after her significant other was thinking about going back to his ex-. She denied suicidal plan or intent and indicated that she wants toget his attention back. Psychotropic medications targeting mood and anxiety were started and she was provided supportive and reality oriented therapy. She was started on Effexor to help with depression which she tolerated without side effects. She felt that her symptoms have improvedon the current medication regimen, and has been compliant with treatment, and reported no side effects. I explained to her that there is room to increase her Effexor and should discusswith her outpatientpsychiatrist increasing it to 75 mg p.o. daily. Her sleep and appetite were okay. She has been attending groups and described them as useful building coping skills. The patient has denied any access to firearms or lethal weapons. She reported having a supportive family and inform me that her dad and sister will come to visit her from [place]. She said her sister will stay with her a couple of days to ensure her safety and stability. She felt better than before coming to the hospital and feels hopeful regarding her future. She understands the importance of outpatient follow-up to ensure the stability of her symptoms.She denied suicidal or homicidal ideation and verbalized the intent to notify the staff if she has such thoughts. No suicidal or self-injurious behaviors occurred during inpatient treatment. She had no problems with impulse control or agitation on the unit. She was given emotional support,counseled, and educated regarding the prognosis of her [...] does not mean that her medicalcare ends here.She needs consistent outpatient follow-up, cognitive behavioral therapy, [...] limiting the number of medications to a 15- day supply with one refill at the time [...] impulsivity, agitation, or psychotic behavior. Pt is future-oriented and understands the importance of outpatient follow-up. [...] follow-up to have somewhere to go and someoneto manage her assymptoms and stressors develop. This is the best way to keep her alive. So, we discussed a crisis plan for future suicidality: at the first sign of distress, she will call the hotline; if this is not sufficient, she will 911, then call family members or friends; ultimately, she willcome to the ER. Safety: The patient is [...] notify her psychiatrist if she becomes due tothe risk of harm to the fetus. MSE: [...] No Activity Restrictions Instructions: Depression, Adult (DC), [facility] [place] Instructions Stand Alone Forms: Work/School Release Form Prescriptions: No Action hurtwon-ubca-vgflr-oreg-capryl 100 mg-150 mg- 50 mg-150 mg Capsule [...] tablet by mouth once daily Follow [facility]: [facility] [Outside] [facility] [Outside] Yaquelin Perez MD [Primary Care Provider] - Documented By: Tyler Roach MD 3 [id number] Signed By: <Electronically signed by Tyler Roach MD> 08/31/22 0859 [facility] Work Phone: 1(551) 216-526004-26-2023 Progress note Author Tyler quijano [facility] August 30, 2022 9:05amNote Date/TimeApril 2022 9:05[place] [address] Psychiatry Progress Note Signed Patient: Ramy Martinez MR#: [id number] : 1980 Acct:[id number] Age/Sex: 42 / F Adm Date: 3 Loc: Room: [address] [place] [address] Type : ADM IN Attending Dr: Arleth Roach MD Copies to: ~ Date of Service: 08/30/2022 Subjective Subjective Narrative: Ms. Martinez reports having a good visit yesterday with her significant other. She stated that she feltsupported and he told her that he is [...] thoughts. She denied any suicidal or self-injurious behaviors.I did talk with her about the importance [...] signed by Tyler Roach MD> 08/30/22 0905 [facility] Work Phone: 1([phone]) 793-998404-25-2023 History and physical note Author Tyler quijano [facility] August 29, 2022 12:16pmNote Date/TimeApril 2022 12:17[place] [address] Psychiatry H&P Signed Patient: Ramy Martinez MR#: [id number] : 1980 Acct:[id number] Age/Sex: 42 / F Adm Date: 3 Loc: Room: 4I7955-8 Type: ADM IN Attending Dr: Arleth Roach [...] did not have worked for her anxiety. Shereports not having taking anything in the past year Alcohol and drug use: Denies any significant use Living situation: Lives with her fianc? Employment: Works at [email or web address] in [employer] Relationships/support system: Reports it is pretty good [...] <Electronically signed by Tyler Roach MD> 08/29/22 [facility] Work Phone: 1([phone]) 465-281204-26-2022 Evaluation note* Encounter Date Diagnosis Assessment Notes Treatment Notes Treatment Clinical Notes Aug, Inflammation of left sacroiliac joint (ICD-10 - M46.1) Aug,Lumbar radiculopathy (ICD-10 - M54.16)I have independently reviewed the plain x-ray of the lumbar spine AP and lateral which shows no instability overall normal disc height overall good alignment. The patient is about 50% better with thesteroids but symptoms still persist despite taking therapeutic doses of Naprosyn daily. At this point I would recommend the patient begin a course of physical therapy I will see her back in about 7 weeks. [employer] Other 03-17-2022 Evaluation + Plan note Future Scheduled Tests Laboratory* Basic Metabolic Panel 07/21/21 * Basic Metabolic Panel 06/30/21 [facility] Evaluation + Plan note Future Appointments Appointment Date:09/10/2023 12:30:00 PM Scheduled Provider: Location:[facility] Appointment Type:Surgery FT [facility] Evaluation + Plan note Future Appointments Appointment Date:09/10/2023 12:30:00 PM Scheduled Provider: Location:[facility] Appointment Type:Surgery FT Diagnostic Tests Pending * Hep Be Ag 07/11/23 * Hepatitis B Surface Antibody 07/11/23 * Hepatitis B Surface Antigen 07/11/23 * Quantiferon-TB Plus (Client Incubated) [facility]23 [facility]ments Appointment Date:09/24/2024 08:15:00 AM Scheduled Provider:Melissa Rivera MD Location:[facility] Appointment Type:[facility] Follow Up Future Scheduled Tests Laboratory* Vitamin D 25 Hydroxy 01/16/24 [facility] evaluation + Plan note Future Appointments Appointment Date:11/04/2025 08:15:00 AM Scheduled Provider:Melissa Rivera MD Location:[facility] Appointment Type:[facility] Follow Up Future Scheduled Tests Laboratory* Vitamin D 25 Hydroxy 01/16/24 * Vitamin D 25 Hydroxy 09/24/24 * CBC w/ Auto Diff 09/24/24 * Comprehensive Metabolic Panel 09/24/24 [facility] evaluation noteNo assessment information available [facility] Work Phone: evaluation note* Diagnosis Onset Date Resolution Status ADHD acuteAnxietyacute [facility] Work Phone: evaluation note* Diagnosis Rectal prolapse- Primary Internal hemorrhoids Internal hemorrhoids without mention of complication documented in this encounter [facility] Work Phone: Evaluation note* Diagnosis Prolapsed internal hemorrhoids- Primary Internal hemorrhoids with other complication documented in this encounter [facility] Work Phone: Evaluation note* Diagnosis Prolapsed internal hemorrhoids- Primary Internal hemorrhoids with other complication documented in this encounter [facility] Work Phone: Evaluation note* Diagnosis Well [...] pain, left [facility] Diagnosis Encounter to discuss test results Other specified counseling Breast pain Mastodynia Pelvic pain in female Unspecified symptom associated with female genital organs [facility] Narrative - Reported* Type Description Date Medical History asthma Medical HistorycolitisMedical HistoryDiabetes type 2Medical Historyallergies Medical HistoryAnxietyMedical HistoryDepressionSurgical HistoryProcedure:Hernia repair;Disease:2006Surgical Ykqmneernizljvrsdltc7928Iebqnjjt Historycyst removal from abdomenSurgical HistoryProcedure:Tonsillectomy;Disease:1986Surgical History C-[id number] HistoryProcedure:colonoscopy;Disease:Abd Pain hx. of Inflammatory Bowel08/2009Surgical Plyvkkjziytayfafhp7429Uwvippqd Historyhernia jnxllt6915Uwqzhpro Historytubal ligationSurgical HistoryArtificial Disc C6-7 Hospitalization Historysee above [employer] Other Hospital course Narrative No data available for this section [facility] Discharge instructions No data available for this section [facility] Discharge instructions Additional Instructions Regular Diet No Activity [facility] Work Phone: Progress note No data available for this section [facility] reason for referral (narrative) Referred by: Miguel HAQUE, Melissa [facility] reason for referral (narrative) , Colorectal surgery at for rectal prolapsereuhmatology at for reynouds disease Referred by: Miguel HAQUE, Melissa [facility] Rebkdf for referral (narrative)No reason for referral information availableUniversity Hospitals [facility] Work Phone: Summary Purpose Family History Relationship Condition Age at Onset Recorded Date/T naomi Not Specified Malignant neoplasm of stomach Unknown Malignant neoplasm of brainUnknownMalignant neoplasm of lungUnknownsister Dysfunctional uterine bleedingUnknown Relationship Condition Age at Onset Recorded Date/T naomi Not Specified Malignant neoplasm of stomach Unknown Malignant neoplasm of brainUnknownMalignant neoplasm of lungUnknownsister Dysfunctional uterine bleedingUnknownfatherBasal cell adenocarcinomaUnknown Relationship Condition Age at Onset Recorded Date/T naomi mother Malignant neoplasm of stomach Unknown Malignant neoplasm of brainUnknownMalignant neoplasm of lungUnknownsister Dysfunctional uterine bleedingUnknownfatherBasal cell adenocarcinomaUnknown grandparentDeceasedUnknownmotherDeceasedUnknown Advance Directives Advance Directive Response Recorded Date/ Time Advance Directives No September 11, 2019 11:36am Date ActivatedDate InactivatedComments12/24/2023 12:03 PMQuestionAnswerComments Plan of Care:* Code Status Discussion Not Completed Decision Maker:* Provider Rationale:* Patient condition does not warrant discussion Date ActivatedDate InactivatedComments12/24/2023 12:03 PMQuestionAnswerComments Plan of Care:* Code Status Discussion Not Completed Decision Maker:* Provider Rationale:* Patient condition does not warrant discussion Chief Complaint and Reason for Visit Chief Complaint m46.1 m48.061 m54.12 Chief Complaint depression Reason for Visit ADHD Anxiety Chief Complaint Admit Date N64.4 January 29, 2025 1:27pm Reason for Referral Reason Evaluate and Treat Diagnosis 1 Lumbar radiculopathy (M54.16) Referral Organization [facility] Ne urosurgery Referring Provider First Name Reddy Referring Provider Last Name Esdras Referring Provider Specialty Neurologica l Surgery Referred Organization [facility] Referred Address [address] [place], [place],[address] Referred Provider Specialty Physical The rapist Referral Priority Routine SpecialtyDiagnoses / ProceduresReferred By ContactReferred To Contact Diagnoses Prolapsed internal hemorrhoids [place]isse [place] [id number] [place] [address] [address] [place] [address] Referral IDStatusReasonStart DateExpiration DateVisits RequestedVisits [id number] Review Additional Source Comments INFORMATION SOURCE (unrecogn ized section and content) DATE CREATED AUTHOR 10/25/2017 [facility] DATE CREATED AUTHOR AUTHOR'S ORGANIZ ATION 08/31/2022 [facility] DATE CREATED AUTHOR AUTHOR'S ORGANIZ ATION 12/18/2023 [facility] DATE CREATED AUTHOR AUTHOR'S ORGANIZ ATION 12/26/2023 [facility] DATE CREATED AUTHOR AUTHOR'S ORGANIZ ATION 01/28/2024 [facility] DATE CREATED AUTHOR AUTHOR'S ORGANIZ ATION 10/12/2024 [facility] DATE CREATED AUTHOR AUTHOR'S ORGANIZ ATION 11/07/2024 [facility] DATE CREATED AUTHOR AUTHOR'S ORGANIZ ATION 11/08/2024 [facility] DATE CREATED AUTHOR AUTHOR'S ORGANIZ ATION 12/30/2024 [facility] DATE CREATED AUTHOR AUTHOR'S ORGANIZ ATION 02/05/2025 [facility] DATE CREATED AUTHOR AUTHOR'S ORGANIZ ATION 02/26/2025 [facility] EPIC Care Teams (unrecognized sec tion and content) Team Status: Inactive Member Role Status Dates Yaquelin Perez MD Primary Care Provider Active Jazmín Coyle ProviderActive Team Status: Active Member Role Status Dates Yaquelin Perez MD Primary Care Provider Active Team Status: Inactive Member Role Status Dates Yaquelin Perez MD Primary Care Provider Active Abdelrahma Doc , MDAdmit Provider, Attending ProviderActiveTeam Member RelationshipSpecialtyStart DateEnd Date Yaquelin Perez MD [address] [place] [address] [facility]28/23Team MemberRelationshipSpecialtyStart DateEnd Date Yaquelin Perez MD [address] [place] [address] [facility] - [facility]09/28/23Team MemberRelationshipSpecialtyStart DateEnd Date Yaquelin Perez MD [address] [place] [facility] [address] P[facility] - [facility]09/28/23 Team Status: Inactive Member Role Status Dates Yaquelin Perez MD Primary Care Provider Active Start: January 29, 2025 End: January 29, 2025Flora Franco APRN MELTER CLERK-CAttending ProviderActive Start: January 29, 2025 End: January 29, 2025Team MemberRelationshipSpecialtyStart DateEnd Date Yaquelin Perez MD [address] [place] [address] PCP - GeneralFami Rpcimzyx46/10/25Team MemberRelationshipSpecialtyStart Date End Date Yaquelin Perez MD [address] [facility] [place] [address] PCP - [facility] Kvtspcus39/10/25Team MemberRelationshipSpecialtyStart Date End Date Yaquelin Perez MD [address] [place] [address] PCP - GeneralFamily Vvaktqlv70/10/25 Goals (unrecognized section and content) Goals may be documented in a n alternate sectionNo Information No data available for this section No data available for this section No data available for this section No data available for this section No data available for this section No data available for this section No data available for this section No data available for this sectionGoals may be documented in an alternate section REASON FOR VISIT (unrecogniz ed section and content) SpecialtyDiagnoses / ProceduresReferred By ContactReferred To Contact Diagnoses Prolapsed internal hemorrhoids Prolapsed internal hemorrhoids [K64.8] Procedures CA HEMORRHOIDECTOMY NTRNL & XTRNL 1 COLUMN/GROUP [place]isional [place] [address] [facility] [address], [address] [address] [place] [address] [place] [address] Referral IDStatusReasonStart DateExpiration DateVisits RequestedVisits [id number] Women VisitReasonCommentsFollow-upPt present today for f/up pelvic and breast results. Pt was seen on 01/12/2025 for pelvic pain and breast pain. An US and Dx mammogram was given to patient to obtain. Scheduled Active and Recently Administ ered Medications (unrecognized section and content) Medication Order// ceFAZolin (Ancef) 2 g in dextrose (iso) [...] that apply): Surgical Prophylaxis, Indications: Surgical Prophylaxis * 1753 (Given - Provider: NOREEN Hopkins) * 1851 (Anesthesia Volume Adjustment - Provider: NOREEN Hopkins) metroNIDAZOLE (Flagyl) 500 mg in sodium chloride (iso) IV 100 mL (COMPLETED) 500 mg, intravenous, Administer over 60 Minutes, Once, On Sun12/24/23 at 1230, For 1 dose, Preprocedure, Do NOT give with alcohol or drug products with significant alcohol content., Suspected Indication (Select all that apply): Surgical Prophylaxis, Indications: Surgical Prophylaxis * 1803 (Given - Provider: NOREEN Hopkins) * 185 (Anesthesia Volume Adjustment - Provider: NOREEN Hopkins) Medication Order/// lactated Ringer's infusion 100 mL/hr, intravenous, Continuous, Starting on Sun12/24/23 at 1230, Preprocedure * 1736 (New Bag - Provider: NOREEN Hopkins) * 185 (Stopped - Provider: NOREEN Hopkins) lactated Ringer's infusion 100 mL/hr, intravenous, Continuous, Starting on Sun12/24/23 at 1930, Recovery (only) * 1930 (Due) Medication Order// albuterol 2.5 mg /3 mL (0.083 %) nebulizer solution 2.5 mg 2.5 mg, nebulization, Every 20 min PRN, wheezing, Starting on Sun12/24/23 at 1900, For 3 doses, Recovery (only) BUPivacaine-EPINEPHrine (Marcaine w/EPI) 0.5 %-1:200,000 injection (CANCELED) As needed, Starting on Sun12/24/23 at 1839, Intraprocedure * 1839 (Given - Provider: Denisse Chiang MD) diphenhydrAMINE (BENADryl) injection 12.5 [...] 1900, For 3 doses, Recovery (only) HYDROcodone-acetaminophen ([place]) 5-325 mg per tablet 1 tablet 1 tablet, oral, Every 4 hours PRN, pain moderate (4-6), second line, Starting on Sun12/24/23 at 1900, Recovery (only), When able to take oral medications., If ordered PRN for pain, nurse is permittedto administer this medication for higher pain scores based on patient preference? Yes * 2027 (Given - Provider: Nirmala Lin RN) HYDROmorphone (Dilaudid) injection 0.5 mg 0.5 mg, intravenous, Every 5 min PRN, pain moderate (4-6), first line, Starting on Sun12/24/23 at 1900, Recovery (only), Max total of 4 mg regardless of dose. * 1903 (Given - Provider: Nirmala Lin RN) * 1914 (Given - Provider: Nirmala Lin RN) * 1934 (Given - Provider: Nirmala Lin RN) HYDROmorphone [...] at 1900, For 1 dose, Recovery (only) * 1922 (Given - Provider: Nirmala Lin RN) midazolam (Versed) injection 1 mg 1 mg, intravenous, Once as needed, anxiety, Starting on Sun12/24/23 at 1900, For 1 dose, Recovery (only) oxygen (O2) therapy inhalation, Continuous PRN - O2/gases, other, Starting on Sun12/24/23 at 1900, Recovery (only), Device: Nasal Cannula, Rate in liters per minute: 4 LPM, Keep O2 Sat Above: 92% * 1849 (Start - Provider: Nirmala Lin RN) * 1903 (Stopped - Provider: Nirmala Lin RN) * 1944 (Start - Provider: Nirmala Lin RN) * 1999 (Stopped - Provider: Nirmala Lin RN) promethazine [...] BE BASED ON THE PRIMARY CLINICAL RECORDS. [employer] [facility] provides no warranty or guarantee of the accuracy or completeness of information in this document.
[2025-04-17 15:15] LABS: Anion Gap 6.1; Blood Urea Nitrogen 6.0 mg/dL (7.0-18.0); Calcium 9.1 mg/dL (8.5-10.1); Carbon Dioxide 34.3 mmol/L (21.0-32.0); Chloride 104 mmol/L (98-107); Estimated GFR (African America >60 (>=60 mL/min/1.73m^2); Estimated GFR (Non-African Ame >60 (>=60 mL/min/1.73m^2); Glucose 95 mg/dL (74-106); Potassium 3.4 mmol/L (3.5-5.1); Sodium 141 mmol/L (136-145)
== END 2025-04-17 14:20 | disposition home or self-care (01) ==
LOC: PST 14:20
PROVIDERS: PCP Family Medicine; Visit Provider Obstetrics & Gynecology
DX: Z01.812 Encounter for preprocedural laboratory examination (principal); R10.20 Pelvic and perineal pain unspecified side
CPT/HCPCS: 36415; 80048

== ENCOUNTER 2025-04-24 06:09 | Day surgery (SDC) | payer BC, SELFPAY ==
--- OUTSIDE RECORDS SUMMARY | 2024-09-02 04:45 | XMS_ITS ---
Author Organization [facility] in [place] Address [address] [place] [address] Care Team Providers Care Production Operator Name Role Phone Edil Martell Primary Care Provider REASON FOR VISIT TCM [facility] Encounters Encounter Location Date Provider Diagnosis [facility] [address] [place] [address] 09/02/2024 Edil Martell Plan Of Treatment No Information Progress Notes * Madhuri GUSMAN MDOB:[birth year] (44 yo F)Acc No.[id number]:09/02/2024 UNLOCKED PROGRESS NOTE Progress Note Patient: Madhuri PETERSEN :?Bipin Martell (TTC), MDDOB:1980???Age: 44 Y???Sex:FemaleDate:09/02/2024Phone:[phone]:[address] [place], [place]-[address] Subjective: * Chief Complaints: * 1 . TCM [facility]. * Medical History: Objective: * Vitals: Assessment: Plan: * Treatment: * * Electronic signature of Edil Martell MD, [phone] on 04/24/2025 at 06:12 AM EST Sign off status: PendingVisit Status:?CANCPHONE (Cancelled Phone) * Provider: Robert Martell MD (TTC) Date: 0 09/02/2024 Generated for Printing/Faxing/eTransmitting on:?04/24/2025 06:12 AM EST
--- OUTSIDE RECORDS SUMMARY | 2024-10-02 03:00 | XMS_ITS ---
Author Organization [facility] in [place] Address [address] [place] [address] Care Team Providers Care Glass Handler Name Role Phone Edil Martell Primary Care Provider Orestes Gerber [phone] Allergies Allergen (clinical drug ingredient) Drug/Non Drug Allergy documented on EMR Reaction Allergy Type Onset Date Status benzonatate Benzonatate rash Drug Allergy Active REASON FOR VISIT 4w F/U - Asthma Medications Medication SIG (Take, Route, Frequency, Duration) Notes Start Date End Date Status Ventolin HFA 108 (90 Base) MCG/ACT 2 puf f as needed Inhalation every 4 hrs; Duration: 30 3ActiveProtonix 40 MG1 tablet Orally Once a day; Duration: 30 days 5ActiveLaMICtal 25 MG2 tablet Orally qd; Duration: 30 days01/31/2024 ActiveAlbuterol Sulfate (2.5 MG/3ML) 0.083%3 mL as needed Inhalation every 6 hrs 5ActiveAdipex-P 37.5 MG1 tablet before breakfast Orally Once a day 5ActiveTrelegy Ellipta 100-62.5-25 MCG/ACT1 puff Inhalation Once a day ActivetraZODone HCl 50 MG2 Oral qhs; Duration: 30 daysActiveVenlafaxine HCl ER 75 MGOral; Duration: 30 DaysActive Social History Tobacco Use: Social History Observation Description Date Details (start date - stop date) Never Smoker NA - NA Tobacco Control (Standard) Question Answer Notes Tobacco use: Nonsmoker Encounters Encounter Location Date Provider Diagnosis [facility] [address] [place] [address] 10/02/2024 Orestes Gerber Plan Of Treatment No Information Progress Notes * Madhuri GUSMAN MDOB:[birth year] (44 yo F)Acc No.[id number]:10/02/2024 UNLOCKED PROGRESS NOTE Follow Up Patient: Madhuri PETERSEN :?Orestesriky HaileJESE kurtzOB:1980???Age:44 Y ???Sex:FemaleDate:10/02/2024Phone:[phone]:[address] [place], [place]-[address]Pcp:Edil Martins In:07:56 AM EST Subjective: * Chief Complaints: * 1 . 4w F/U - Asthma. * Medical History: C holedocholithiasis, Chronic pancolonic ulcerative colitis, ADHD (attention deficit hyperactivity disorder), Anxiety, RASHAD (obstructive sleep apnea), Severe persistent asthma, uncomplicated, GERD (gastroesophageal reflux disease), Chronic migraine without aura, not intractable, without status migrainosus, Peripheral eosinophilia, Lung bullae, Community acquired pneumonia, Obesity. * Surgical History: T onsillectomy , Cyst Removal , C Section X 1 , Hernia Repair , Neck Surgery , cholecystectomy , endometrial ablation , tubal ligation . * Hospitalization/Major Diagno stic Procedure: A sta Exacerbation-[facility] 08/25/2024. * Family History: F ather: alive, hypertension, diagnosed with Hypertension. M other: , lung cancer, Brain Cancer, chronic obstructive pulmonary disease, diagnosed with Cancer. S ister(s): alive. Son(s): alive. P aternal Grandmother: stroke, diagnosed with Heart Disease. 1 sister(s) - healthy. 2 son(s) - healthy. . 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 ???Drugs/Alcohol:?Drugs?Have you used drugs other than those for medical reasons in the past 12 months??No ?Does the Patient have a History of Drug Abusein the Past??No ?Caffeine?Intake:?1-2 cups per day Coffee ?Do you drink alcohol?: No. ?Do you smoke marijuana?: Denies. * Medications: T aking Adipex-P 37.5 MG Tablet 1 tablet before breakfast Orally Once a day , Taking Albuterol Sulfate (2.5 MG/3ML) 0.083% Nebulization Solution 3 mL as needed Inhalation every 6 hrs , Taking LaMICtal(lamoTRIgine) 25 MG Tablet 2 tablet Orally qd , Taking Protonix(Pantoprazole Sodium) 40 MG Tablet Delayed Release 1 tablet Orally Once a day , Taking traZODone HCl 50 MG Tablet 2 Oral qhs , Taking Trelegy Ellipta(Yxklyznnytr-Fizbydbgb-Cthvsi) 100-62.5-25 MCG/ACT Aerosol Powder Breath Activated 1 puff Inhalation Once a day , Taking Venlafaxine HCl ER 75 MG Capsule Extended Release 24 Hour Oral , Taking Ventolin HFA(Albuterol Sulfate HFA) 108 (90 Base) MCG/ACT Aerosol Solution 2 puff as needed Inhalation every 4 hrs * Allergies: B enzonatate: rash. Objective: * Vitals: Assessment: Plan: * Treatment: * * Electronic signature of Orestes Gerber DO on 04/24/2025 at 06:12 AM ESTSign off status: PendingVisit Status:?R/S (Rescheduled) * Provider: Zari Gerber DO Date: 0 10/02/2024 Generated for Printing/Faxing/eTransmitting on:?04/24/2025 06:12 AM EST
--- OUTSIDE RECORDS SUMMARY | 2024-12-31 02:30 | XMS_ITS ---
Author Organization The [facility] [place] Address [address] [place] [address] Care Team Providers Care Metal Window Screen Assembler Name Role Phone Edil Martell Primary Care Provider [phone] Orestes Gerber [phone] REASON FOR VISIT 3m F/U - Asthma Encounters Encounter Location Date Provider Diagnosis [facility] [address] [place] [address] 12/31/2024 Orestes Gerber Plan Of Treatment No Information Progress Notes * Madhuri GUSMAN MDOB:[birth year] (44 yo F)Acc No.[id number]:12/31/2024 UNLOCKED PROGRESS NOTE Follow Up Patient: Silvia DOZIER Madhuri Phillips :?JESE HarkinsOB:1980???Age:44 Y ???Sex:FemaleDate:12/31/2024Phone:[phone]:[address] [place], [place]-[address]Pcp:Edil Martell Subjective: * Chief Complaints: * 1 . 3m F/U - Asthma. * Medical History: Objective: * Vitals: Assessment: Plan: * Treatment: * * Electronic signature of Orestes Gerber DO on 04/24/2025 at 06:12 AM ESTSign off status: PendingVisit Status:?OFF CANC (OFFICE CANCEL) * Provider: Zari Gerber DO Date: 0 12/31/2024 Generated for Printing/Faxing/eTransmitting on:?04/24/2025 06:12 AM EST
[2025-04-17 14:38] VITALS: BP 124/84; PULSE 74; TEMP 36.4; O2SAT 100; BMI 34.1
[2025-04-24] VITALS (12 sets, daily range): BP systolic 114–128; BP diastolic 60–86; PULSE 66–98; TEMP 36.2–36.5; O2SAT 94–100; BMI 34.8
--- OUTSIDE RECORDS SUMMARY | 2025-04-24 06:12 | XMS_ITS | Encounter Summary ---
Author Organization [facility] Address [address] [place] [address] Care Team Providers Care Java Manager Name Role Phone Bipin Martell MD Primary Care Provider [phone] Encounter Details DateTypeDepartmentCare Team (Latest Contact Info)Ymtknevbbmh81/12/2025Clinisync Result Encounter [facility] Unsolicited John Patton, DO [address] [place] [address] Social History Tobacco UseTypesPacks/DayYears UsedDateSmoking Tobacco: NeverSmokeless Tobacco: NeverAlcohol UseStandard Drinks/WeekCommentsNever0 (1 standard drink = 0.6 oz pure alcohol)CommentsNoSex and Gender InformationValueDate RecordedSex Assigned at HfnlrFyhmes60/15/2024 4:25 PM EDTLegal EucKjghbm68/15/2023 6:51 PM EDTGender CinpsspqQoodho58/15/2024 4:25 PM EDTSexual OrientationNot on file documented as of this encounter Plan of Treatment Not on file documented as of this encounter Procedures Procedure NamePriorityDate/TimeAssociated DiagnosisCommentsALL BASIC METABOLIC ZVESQXnkxszc10/12/2025 2:50 PM EST documented in this encounter Results * (ABNORMAL) ALL BASIC METABOLIC PANEL (04/17/2025 2:50 PM EST)ComponentValueRef RangeTest MethodAnalysis TimePerformed AtPathologist UiixlkmmcOHISUC445284 - 145 mmol/LTBHPOTASSIUM3.4(L)3.5 - 5.1 mmol/AMEUYICUEPQM19499 - 107 mmol/LTBH CARBON WAXKVTU57.3(H)21.0 - 32.0 mmol/LTBHANION GAP6.5TAGLCPNVHO6224 - 106 mg/dLTBHBLOOD UREA NITROGEN6.0(L)7.0 - 18.0 mg/dLTBHCREATININE0.590.55 - 1.02 mg/dLTBHTBH EGFR-AF MALTESE>60>=60 mL/min/1.73m 2TBHTBH EGFR-NON AF MALTESE >60>=60 mL/min/1.73m 2TBHBUN CREATININE RATIO10.2JOSXAQUSDI0.18.5 - 10.1 mg/dL TBHSpecimen (Source)Anatomical Location / LateralityCollection Method / Volume Collection TimeReceived Time04/17/2025 2:50 PM EST04/17/2025 2:52 PM EST Narrative [facility] - 04/17/2025 3:17 PM EST Authorizing ProviderResult TypeResult StatusCorey Pooja DOCLINISYNCFinal Result Performing OrganizationAddressCity/State/ZIP CodePhone Number [facility] documented in this encounter Visit Diagnoses Not on filedocumented in this encounter Care Teams Team MemberRelationshipSpecialtyStart DateEnd Bipin Martell MD [address] [place] [address] PCP - GeneralFamily Alocnraz34/10/25documented as of this encounter
--- OUTSIDE RECORDS SUMMARY | 2025-04-24 06:12 | XMS_ITS | Encounter Summary ---
Author Organization [facility] Address [address] [facility] [place] [address] Care Team Providers Care Art History Instructor Name Role Phone Bipin Martell MD Primary Care Provider [phone] Encounter Details DateTypeDepartmentCare Team (Latest Contact Info)Dooxebvzggq98/15/2025Telephone [facility] [address] [place] [phone] John Patton, [address] [place] [address] Social History Tobacco UseTypesPacks/DayYears UsedDateSmoking Tobacco: NeverSmokeless Tobacco: NeverAlcohol UseStandard Drinks/WeekCommentsNever0 (1 standard drink = 0.6 oz pure alcohol)CommentsNoSex and Gender InformationValueDate RecordedSex Assigned at TumzfVzlxaz46/15/2024 4:25 PM EDTLegal NhoAnqfwk12/15/2023 6:51 PM EDTGender SumbvpimDrnwjl42/15/2024 4:25 PM EDTSexual OrientationNot on file documented as of this encounter Miscellaneous Notes * Telephone Encounter - Shyla Tavares LPN - 04/20/2025 10:[address] he will treat patient. Called and spoke with nurse at Dr. Martell's office and gave update. * Telephone Encounter - Shyla Tavares LPN - 04/20/2025 10:18 AM EST Hi, this is a nurse calling from Dr. Martell office. I am calling about Madhuri Gusman. And her date of is [address]. [address] Martell wanted to know if Dr Patton was addressing the patient's low potassium at your convenience. Just please call our office back [phone] option for to talk to a nurse. documented in this encounter Plan of Treatment Not on file documented as of this encounter Visit Diagnoses Not on filedocumented in this encounter Care Teams Team MemberRelationshipSpecialtyStart DateEnd Date Bipin Martell MD [address] [place] [phone] PCP - GeneralFamily Czdveivh50/10/25documented as of this encounter
--- OUTSIDE RECORDS SUMMARY | 2025-04-24 06:13 | XMS_ITS | Clinical Summary ---
Author Organization [facility] Address [address] [place] [address] Care Team Providers Care Switchboard Operator Supervisor Name Role Phone Bipin Martell MD Primary Care Provider [phone] Allergies Active AllergyReactionsCriticalityNoted DateCommentsBenzonatateRash,SwellingHigh 10/20/2024 Medications MedicationSigDispense QuantityRefillsLast FilledStart DateEnd DateStatus mesalamine ER (Apriso) 0.375 gram 24 hr capsule Take 1.5 g by mouth in the morning. Do not crush or chew.Active traZODone (Desyrel) 50 mg tablet Take 50 mg by mouth at bedtime.Active venlafaxine XR (Effexor-XR) 75 mg 24 hr capsule Take 75 mg by mouth in the morning.Active lamoTRIgine (LaMICtal) 25 mg tablet Take 2 tablets by mouth in the morning.Active Protonix 40 mg EC tablet Take 40 mg by mouth before breakfast.5Active albuterol 90 mcg/actuation inhaler Inhale 2 puffs every 4 (four) hours if needed.Active clxuttfjqrs-ltfbsnvzh-elgujina (Trelegy Ellipta) 200-62.5-25 mcg blister with device Inhale 1 puff in the morning.Active Active Problems ProblemNoted DateDiagnosed DateAcute ckctgaowjldjo56/16/1319Ztivne36/16/2025 Overview (10/20/2024): no problems BMI 38.0-38.9,adult10/20/20246228Ymgijfgdobtsocfsnyz60/16/2025Chronic pancolonic ulcerative syiiggc9310/20/2024Diabetes /16/2025Prolapsed internal iikoxkedluy25/11/2024Family history of malignant ivmfrntq57/30/2022Ulcerative hssgqpj2006/11/2017 Overview (10/20/2024): Added automatically from request for surgery [id number] Severe obesity with body mass index (BMI) of 35.0 to 39.9 with serious zhdbshswduj82/22/2017 Overview (10/20/2024): 08/05/22 IMO Update Family History Medical HistoryRelationNameCommentsHypertensionFatherLung cancerMotherCoronary artery diseasePaternal GrandmotherStrokePaternal GrandmotherRelationNameStatus CommentsFatherAliveMotherDeceasedPaternal Grandmother Social History Tobacco UseTypesPacks/DayYears UsedDateSmoking Tobacco: NeverSmokeless Tobacco: Never Tobacco Cessation:Counseling Given: Not Answered Alcohol UseStandard Drinks/WeekCommentsYes0 (1 standard drink = 0.6 oz pure alcohol)occasionalCommentsUnknownSex and Gender InformationValueDate RecordedSex Assigned at YfirfRkgrip52/13/2025 3:23 PM EDTLegal SexFemale 11/02/2021 10:54 PM EDTGender MjrwpdbiDcfpin27/13/2025 3:23 PM EDTSexual OrientationHeterosexual or Abfoatmi91/13/2025 3:23 PM EDT Last Filed Vital Signs Vital SignReadingTime TakenCommentsBlood Ecfnmndp480/85012/29/2024 3:03 PM EDT Hzqsj487112/29/2024 3:03 PM EDTTemperature--Respiratory Rate--Oxygen Saturation 100%12/29/2024 3:03 PM EDTInhaled Oxygen Concentration--Tkxzrk01.9 kg (207 lb) 12/29/2024 3:03 PM EOLPyxmzb698.1 cm (5' 5 )12/29/2024 3:03 PM EDTBody Mass Index34.45012/29/2024 3:03 PM EDT Plan of Treatment Health MaintenanceDue DateLast DoneCommentsDiabetes: Hemoglobin A1C1980IPV Vaccines (2 of 3 - 4-dose series)Diabetes: Retinopathy Pghigroln38/11/1991Depression Xzypoedlm93/11/1993Varicella Vaccines (1 of 2 - 13+ 2-dose series)1993Diabetes: Urine Protein Gjjcdsfcy24/11/2000 Pneumococcal Vaccine: Pediatrics (0 to 5 Years) and At-Risk Patients (6 to 64 Years) (1 of 2 - PCV)07/16/1999Adult Iqgfmms2407/15/2002HPV Vaccines (1 - 3-dose SCDM series)07/16/2007HPV/Euqhzj4307/15/20106719Oqbrltson97/11/2021COVID-19 Vaccine ( season), 05/05/2020Influenza Vaccine (#1) 2025ervical Cancer Ijjhvvekv41/29/2027Pap Smear7001/03/2024Zoster Vaccines (1 of 2)2030Hepatitis B FvdifzlkRsqejjtdh81/11/2017, 11/08/2016, 10/04/2016HIB VaccinesAged OutNo longer eligible based on patient's age to complete this topicMeningococcal B VaccineAged OutNo longer eligible based on patient's age to complete this topicMeningococcal VaccineAged OutNo longer eligible based on patient's age to complete this topicRotavirus VaccinesAged Out No longer eligible based on patient's age to complete this topic Insurance Care Teams Team MemberRelationshipSpecialtyStart DateEnd Bipin Martell MD [address] [facility] [address] [facility] - [facility]/17/24
--- OUTSIDE RECORDS SUMMARY | 2025-04-24 06:13 | XMS_ITS | Clinical Summary ---
Author Organization [facility] Address [address] [facility] [place] [address] Care Team Providers Care Special Technical Operations Officer Name Role Phone Bipin Martell MD Primary Care Provider [phone] Allergies Active AllergyReactionsCriticalityNoted DateCommentsBenzoateCough,Hives,Itching 08/05/2024enzonatateRash,AhdypisiMqul27/16/2025 Other Reaction(s): Swelling Medications No known medications Encounters DateTypeDepartmentCare OsfhPijlfvtbfzy38/15/2025Telephone [facility] [address] [place] [address] John Patton DO 04/17/2025linisync Result Encounter [facility] External Department Unsolicited John Patton DO 03/30/2025 10:20 AM ESTConsult NOM[facility] [address] [place] [address] John Patton, Pre-op examination; Pelvic pain03/30/2025amboo flowsheet [facility] [address] [place] [address] John Patton DO 02/25/2025 9:30 AM EDTOffice Visit [facility] [address] [place] [address] Cintia Franco, SOCIAL SERVICES ASSISTANT Encounter to discuss test results; Breast pain; Pelvic pain in yofgvt5802/25/2025amboo flowsheet [facility] [address] [place] [address] Cintia Franco NP 02/18/20250694Beneja61/10/2025 2:00 PM EDTAncillary Procedure [facility] [address] [place] [phone] Breast pain, left02/13/2025 1:00 PM EDTAncillary Procedure [facility] [address] [place] [phone] Odogbwitgh72/10/2025 1:00 PM EDTAncillary Procedure [facility] [address] [place] [address] Pelvic pain in mjiimn9702/13/20256991Privbd61/09/0151Fuddtq64/30/2025Telephone [facility] [address] [place] [phone] Alejandra Amanda MA 01/29/2025linisync Result Encounter [facility] External Department Unsolicited Cintia Franco NP from Last 3 Months Family History Medical HistoryRelationNameCommentsMigrainesFatherDanCancerMotherTerriRelation NameStatusCommentsFatherDanAliveMotherTerriAlive Social History Tobacco UseTypesPacks/DayYears UsedDateSmoking Tobacco: NeverSmokeless Tobacco: Never Tobacco Cessation:Counseling Given: Not Answered Alcohol UseStandard Drinks/WeekCommentsNever0 (1 standard drink = 0.6 oz pure alcohol)CommentsNoSex and Gender InformationValueDate RecordedSex Assigned at VztlwWruqld50/15/2024 4:25 PM EDTLegal LqkEzaswf04/15/2023 6:51 PM EDTGender EhjhwycxGvuevv22/15/2024 4:25 PM EDTSexual OrientationNot on file Last Filed Vital Signs Vital SignReadingTime TakenCommentsBlood Prbttwmo170/7011 10:35 AM EST Pulse--Temperature--Respiratory Rate--Oxygen Saturation--Inhaled Oxygen Concentration--Bstefs57.5 kg (204 lb)03/30/2025 10:35 AM ZQNRrzrmq169.1 cm (5' 5 )04/16/2020 12:00 PM ESTBody Mass Index33.9504/16/2020 12:00 PM EST Plan of Treatment Health MaintenanceDue DateLast DoneCommentsHPV/Yyeqxl5107/15/2010COVID-19 Vaccine ( season), 05/05/2020Influenza Vaccine (#1) 5105/25/20193445Wgwdpccej00, 01/09/2025, 01/11/2024 Cervical Cancer Gnivzsbhl18/08/2028Pap Smear, 01/03/2024 Pneumococcal Vaccine: Pediatrics (0 to 5 Years) and At-Risk Patients (6 to 64 Years)Aged OutNo longer eligible based on patient's age to complete this topic Procedures Procedure NamePriorityDate/TimeAssociated DiagnosisCommentsALL BASIC METABOLIC RPIMNRszuhpa54/12/2025 2:50 PM EST BI US BREAST LIMITED RNUMPaaiacm40/10/2025 2:12 PM EDT Breast pain, left BI MAMMOGRAM DIAGNOSTIC TOMOSYNTHESIS PFWTQzffsxz69/10/2025 1:20 PM EDT Mastodynia US PELVIC COMPLETE W/ UKXcoevgr49/10/2025 1:15 PM EDT Pelvic pain in female US PELVIS W/ HFBGHHANVQBK02/25/2025 8:30 PM EDT PAP AKXGCMdqbxft70/08/2025 12:00 AM EDTfrom Last 3 Months or Most Recently Relevant to Health Maintenance Results * (ABNORMAL) ALL BASIC METABOLIC PANEL (04/17/2025 2:50 PM EST)ComponentValueRef RangeTest MethodAnalysis TimePerformed AtPathologist OqbtcuebkTKFPVQ004013 - 145 mmol/LTBHPOTASSIUM3.4(L)3.5 - 5.1 mmol/DQDNOHEKLBIE34794 - 107 mmol/LTBH CARBON VJIQZPB02.3(H)21.0 - 32.0 mmol/LTBHANION GAP6.0BQRJXJTORB3506 - 106 mg/dLTBHBLOOD UREA NITROGEN6.0(L)7.0 - 18.0 mg/dLTBHCREATININE0.590.55 - 1.02 mg/dLTBHTBH EGFR-AF DJIBOUTIAN>60>=60 mL/min/1.73m 2TBHTBH EGFR-NON AF DJIBOUTIAN >60>=60 mL/min/1.73m 2TBHBUN CREATININE RATIO10.2AWZPEEGJYM4.18.5 - 10.1 mg/dL TBHSpecimen (Source)Anatomical Location / LateralityCollection Method / Volume Collection TimeReceived Time04/17/2025 2:50 PM EST04/17/2025 2:52 PM EST Narrative [facility] - 04/17/2025 3:17 PM EST Authorizing ProviderResult TypeResult StatusCorey Pooja DOCLINISYNCFinal Result Performing OrganizationAddressCity/State/ZIP CodePhone Number [facility] * Left breast US limited (02/13/2025 2:12 PM EDT)Anatomical RegionLaterality ModalityBreastLeftUltrasoundSpecimen (Source)Anatomical Location / Laterality Collection Method / VolumeCollection TimeReceived Time02/14/2025 2:36 PM EDT Impressions 02/14/2025 2:41 PM EDT Impression: Left breast ultrasound study is grossly unremarkable. No obvious neoplasm. When correlating the studies no convincing evidence of neoplasm. Unremarkable appearing left axillary lymph node. No obvious adenopathy. BI-RADS 2 ELECTRONICALLY SIGNED BY: Dexter Eller M.D. Narrative 02/14/2025 2:41 PM EDT Examination: BI US BREAST LIMITED LEFT Reason [...] on the diagnostic mammogram study dated 02/13/2025. Authorizing ProviderResult TypeResult StatusKrMatheny Medical and Educational Center NPIMG US PROCEDURES Final Result * Left diagnostic mammogram with tomosynthesis (02/13/2025 1:20 PM EDT) Anatomical RegionLateralityModalityBreastLeftMammographySpecimen (Source) Anatomical Location / LateralityCollection Method / VolumeCollection Time Received Time02/14/2025 2:23 PM EDT Impressions 02/14/2025 2:42 PM EDT No specific evidence of malignancy seen in the left breast. BIRADS 2 - Benign Findings DENSITY: The breasts are heterogeneously dense, which may obscure small masses. FOLLOW-UP: Routine Screening Mammogram Board Certified Radiologists. ??Accredited by the ACR and FDA. MAMMOGRAPHY IS VERY IMPORTANT TO YOUR HEALTH. ??THE [place] CANC[employer] SOCIETY GUIDELINES RECOMMEND THAT WOMEN 40 YEARS OF AGE AND OLDER SHOULD HAVE A MAMMOGRAM EVERY YEAR. A REMINDER LETTER WILL BE SENT AT THE APPROPRIATE TIME. ?? ELECTRONICALLY SIGNED BY: Dexter Eller M.D. Narrative 02/14/2025 2:42 PM EDT EXAMINATION: BI MAMMOGRAM DIAGNOSTIC TOMOSYNTHESIS LEFT CLINICAL HISTORY: ??left breast pain TECHNIQUE: Diagnostic digital mammogram study [...] grossly unremarkable. Ultrasound study was grossly unremarkable. Procedure Note Dexter Eller MD - 02/14/2025 EXAMINATION: BI MAMMOGRAM DIAGNOSTIC TOMOSYNTHESIS LEFT CLINICAL HISTORY: left breast pain TECHNIQUE: Diagnostic digital mammogram study of the left breast wasperformed with 2D and 3D tomosynthesis imaging. Study was compared to thescreening mammogram study of the breasts dated 12/09/2024 and ultrasoundstudy left breast dated 02/13/2025. FINDINGS: Standard views as well as coned-down compression views,exaggerated lateral CC and true lateral views were obtained. There is no evidence of interval dominant spiculated mass, grouped microcalcifications or skin thickening which would be suggestive ofmalignancy. No obvious abnormality in the area of pain medially. A single benign-appearing calcification is noted. Axillary lymph nodesincluding a partially visualized lymph node are noted which appear grosslyunremarkable. Ultrasound study was grossly unremarkable. IMPRESSION: No specific evidence of malignancy seen in the left breast. BIRADS 2 - Benign Findings DENSITY: The breasts are heterogeneously dense, which may obscure smallmasses. FOLLOW-UP: Routine Screening Mammogram Board Certified Radiologists. Accredited by the ACR and FDA. MAMMOGRAPHY IS VERY IMPORTANT TO YOUR HEALTH. THE [place] CANC[employer] SOCIET[employer] GUIDELINES RECOMMEND THAT WOMEN 40 YEARS OF AGE AND OLDER SHOULD HAVE AMAMMOGRAM EVERY YEAR. A REMINDER LETTER WILL BE SENT AT THE APPROPRIATE TIME. ELECTRONICALLY SIGNED BY: Dexter Eller M.D. Authorizing ProviderResult TypeResult Statuskay Salvador [facility] BI PROCEDURES Final Result * US Pelvis w/ TV (02/13/2025 1:15 PM EDT)Anatomical RegionLateralityModality PelvisUltrasoundSpecimen (Source)Anatomical Location / LateralityCollection Method / VolumeCollection TimeReceived Time02/17/2025 10:15 AM EDT Impressions 02/17/2025 11:13 AM EDT Normal pelvic ultrasound appearance. TRANSCRIBED BY: ? ELECTRONICALLY SIGNED BY: Ray Gomes MD Narrative 02/17/2025 11:13 AM EDT FINDINGS: Uterus ? 9.1 x 5.2 x ??3.9 cm Endometrium ?? 5 mm Right Ovary ?3.2 x 2.1 x 1.5 cm Left Ovary ?2.5 x 1.6 x 1.4. cm The uterus is normal in size and orientation. ??No worrisome mass lesions are seen. ??Endometrium appears unremarkable. Several millimeter cervical Nabothian cysts. ??No fluid is seen within the cul-de-sac. ??Both ovaries appear normal for this age. Procedure Note Ray Gomes MD - 02/17/2025 FINDINGS: Uterus 9.1 x 5.2 x 3.9 cm Endometrium 5 mm Right Ovary 3.2 x 2.1 x 1.5 cm Left Ovary 2.5 x 1.6 x 1.4. cm The uterus is normal in size and orientation. No worrisome mass lesionsare seen. Endometrium appears unremarkable. Several millimeter cervicalNabothian cysts. No fluid is seen within the cul-de-sac. Both ovariesappear normal for this age. IMPRESSION: Normal pelvic ultrasound appearance. TRANSCRIBED BY: ELECTRONICALLY SIGNED BY: Ray Gomes MD Authorizing ProviderResult TypeResult StatusCintia Franco NPALLIANCEHE[facility] [place] Final Result * US PELVIS W/ TRANSVAGINAL (01/29/2025 8:30 PM EDT)Anatomical RegionLaterality ModalityOtherSpecimen (Source)Anatomical Location / LateralityCollection Method / VolumeCollection TimeReceived Time01/29/2025 8:30 PM EDT Narrative 01/29/2025 8:33 PM EDT [facility] ?[address] ? [place] [address] ? Ultrasound Report ? Signed ? Patient: MADHURI GUSMAN ?MR#: [id number] ?? : 1980 ?Acct:[id number] ?? Age/Sex: 44 / F ?ADM Date: 01/29/25 ?? Loc: US ? Attending Dr: Cintia Franco ? Ordering Physician: Cintia Franco ?? Date of Service: 01/29/25 ?? Procedure(s): US pelvis w/ transvaginal ?? Accession Number(s): [id number] ? cc: Cintia Franco; Bipin Martell M.D. ? [facility] ? [address] ? [place] [address] ? Patient Name: ?? MADHURI GUSMAN ? MRN: [facility]:[id number] ? date: 1980 ?Sex: F ?? Assigned Patient Location: US ?? Current Patient Location: US ?? Accession/Order Number: [id number] ?? Exam Date: 01/29/2025 ??16:04 ?Report Date: 01/29/2025 ??20:30 ? At the request of: ?? CINTIA ??SAVLADOR ? Procedure: ??US pelvis w/ transvaginal ? Transvaginal and transabdominal pelvic ultrasound ? INDICATION: Pelvic pain in a female for 4 months ? COMPARISON: None ? FINDINGS: Uterus anteverted and retroflexed. ??Uterus measures 7.6 x 4.4 x 4.2 ?? cm. ??Multiple nabothian cysts within cervix. ??Endometrial thickness 4.1 mm. ? Right ovary 2.4 x 1.8 x 1.4 cm in size. ??Unremarkable. ??Unremarkable venous ?? and arterial flow to the right ovary. ? Left ovary is not visualized. ??Obscured by bowel gas ? US/US pelvis w/ transvaginal ?? IMPRESSION: Nonvisualization left ovary. ??Otherwise physiologic findings ?? identified. ? Impression dictated by: Jersey Bruno M.D. ??01/29/2025 8:30 PM ? Dictation Location: RADIO-PC-29 ? Electronically authenticated by: [id number] ??Y ?? Date: 01/29/2025 ??20:30 ? Dictated By: ?Jersey Bruno M.D. ? Signed By: ?01/29/25 2033 ? DD/ 2030 ? TD/TT: ? Television Repairer: Procedure Note Radiology, Radiologist, MD - 01/29/[address] [address] Ultrasound Report Signed Patient: MADHURI GUSMAN MMR#: [id number] : 1980Acct:[id number] Age/Sex: 44 / FADM Date: 01/29/25 Loc: US Attending Dr: Cintia Franco Ordering Physician: Cintia Franco Date of Service: 01/29/25 Procedure(s): US pelvis w/ transvaginal Accession Number(s): [id number] cc: Cintia Franco; Bipin Martell M.D. [place] [id number] Patient Name: MADHURI GUSMAN MRN: [facility]:[id number] date: 1980 Sex: F Assigned Patient Location: US Current Patient Location: US Accession/Order Number: [id number] Exam Date: 01/29/2025 16:04 Report Date: 01/29/2025 20:30 At the request of: CINTIA FRANCO Procedure: US pelvis w/ transvaginal Transvaginal and transabdominal pelvic ultrasound INDICATION: Pelvic pain in a female for 4 months COMPARISON: None FINDINGS: Uterus anteverted and retroflexed. Uterus measures 7.6 x 4.4 x4.2 cm. Multiple nabothian cysts within cervix. Endometrial thickness 4.1mm. Right ovary 2.4 x 1.8 x 1.4 cm in size. Unremarkable. Unremarkablevenous and arterial flow to the right ovary. Left ovary is not visualized. Obscured by bowel gas US/US pelvis w/ transvaginal IMPRESSION: Nonvisualization left ovary. Otherwise physiologic findings identified. Impression dictated by: Jersey Bruno M.D. 01/29/2025 8:30 PM Dictation Location: [place] [address] Electronically authenticated by: [id number] Y Date: 0:30 Dictated By: Jersey Burno M.D. Signed By:01/29/252032 DD/ 29 TD/TT: Television Repairer: Authorizing ProviderResult TypeResult StatusCintia Franco NPCLINISYNC IMAGING Final Result * Pap Smear (01/12/2025 12:00 AM EDT)Specimen (Source)Anatomical Location / LateralityCollection Method / VolumeCollection TimeReceived TimeSwabCervical swab / Unknown Narrative Authorizing ProviderResult TypeResult StatusFazio Nurse [facility] ObLAB CYTOLOGY ORDERABLESFinal ResultPerforming OrganizationAddressCity/State/ZIP CodePhone Number EXTERNAL LAB from Last 3 Months or Most Recently Relevant to Health Maintenance Insurance Care Teams Team MemberRelationshipSpecialtyStart DateEnd Bipin Martell MD [address] [place] [address] PCP - GeneralFamily Lubrsbub32/10/25
--- OUTSIDE RECORDS SUMMARY | 2025-04-24 06:13 | XMS_ITS | Clinical Summary ---
Author Organization [facility] Address [address] [place] [address] Phone Care Team Providers Care Filler Sifter Helper Name Role Phone Bipin Martell MD Primary Care Provider [phone] Allergies No known active allergies Medications MedicationSigDispense QuantityRefillsLast FilledStart DateEnd DateStatus mesalamine ER (Apriso) 0.375 gram 24 hr capsule Active LORazepam (Ativan) 0.5 mg tablet Take 1 tablet (0.5 mg) by mouth once daily as needed for anxiety.01/02/2023 Active lamoTRIgine (LaMICtal) 25 mg tablet Take 2 tablets (50 mg) by mouth once daily.Active albuterol 90 mcg/actuation inhaler INHALE 2 PUFFS BY MOUTH EVERY 4 HOURS IF NEEDEDActive venlafaxine XR (Effexor-XR) 75 mg 24 hr capsule Take 1 capsule (75 mg) by mouth once daily.Active traZODone (Desyrel) 50 mg tablet Take 1 tablet (50 mg) by mouth once daily at bedtime.Active geriatric multivitamins-minerals 0.5-0.6-7-0.7 mg elixir Take 5 mL by mouth once daily.Active riboflavin, vitamin B2, (VITAMIN B-2 ORAL) Take by mouth 1 (one) time per week in the chemical compounder helper..Active Active Problems ProblemNoted DateDiagnosed DateProlapsed internal mwjftlivkws67/11/2024 Family History Medical HistoryRelationNameCommentsBrain cancerMotherLung cancerMotherRelation NameStatusCommentsMother Social History Tobacco UseTypesPacks/DayYears UsedDateSmoking Tobacco: NeverSmokeless Tobacco: Never Tobacco Cessation:Counseling Given: Not Answered Alcohol UseStandard Drinks/WeekCommentsYes1 (1 standard drink = 0.6 oz pure alcohol)rarelyCommentsUnknownSex and Gender InformationValueDate RecordedSex Assigned at BirthNot on fileLegal LsnXqycbv00/24/2024 1:06 PM EDT Gender IdentityNot on fileSexual OrientationNot on file Last Filed Vital Signs Vital SignReadingTime TakenCommentsBlood Wxermimd441/8109 3:40 PM EDT Zcoqy493801/22/2024 3:40 PM RFBYqeeqofreez19.2 ??C (97.2 ??F)12/24/2023 8:00 PM EDTRespiratory Bory644912/24/2023 8:30 PM EDTOxygen Xygxyqwmgq24%12/24/2023 8:30 PM EDTInhaled Oxygen Concentration--Mlnkvd58.2 kg (179 lb)01/22/2024 3:40 PM EDT Lrtreu676.1 cm (5' 5 )01/22/2024 3:40 PM EDTBody Mass Index29.7901/22/2024 3:40 PM EDT Plan of Treatment Health MaintenanceDue DateLast DoneCommentsBone Density Scan1980HIV Eweitohnt99/11/1981Lipid Panel1980TB Test1980Vitamin B-120 1980 IPV Vaccines (2 of 3 - 4-dose series)Hepatitis B Surface Zubghglm33/11/1982Hepatitis C Dkwpfmsks99/11/1999Pneumococcal Vaccine: Pediatrics and At-Risk Adult Patients (1 of 2 - PCV)07/16/1999HPV/Cotest 2001DTaP/Tdap/Td Vaccines (2 - Tdap)HPV Vaccines (1 - 3-dose standard series)07/16/20075129Byzbaeuxm92/11/2021Vitamin F86-LY2211/27/2024 11/28/2023Influenza Vaccine (#1)5Yearly Adult Qpzyuegn52/30/2025 01/03/2024OVID-19 Vaccine ( season)501/, 05/05/2020 Diabetes Rhbtjbcgz94, 12/13/2023ervical Cancer Screening 01/02/2027Pap SmearZoster Vaccines (1 of 2)2030 Hepatitis B FetabjogLfqnrcere59/11/2017, 11/08/2016, 10/04/2016Hepatitis A VaccinesAged Out09/20/2018No longer eligible based on patient's age to complete this topicMMR AyqablyqKgguzdfzt14/17/2019HIB VaccinesAged OutNo longer eligible based on patient's age to complete this topicMeningococcal VaccineAged OutNo longer eligible based on patient's age to complete this topicRotavirus Vaccines Aged OutNo longer eligible based on patient's age to complete this topic Medical Devices ImplantedTypeAreaManufacturerDevice IdentifierShelf Expiration DateModel / Serial / LotMeshMeshAbdomen Procedures Procedure NamePriorityDate/TimeAssociated DiagnosisCommentsPOCT GLUCOSERoutine 12/24/2023 12:13 PM EDT VITAMIN D 25-HYDROXY,FFESNRdhxacx94/24/2024 3:21 PM EDT Arthropathy from Last 3 Months or Most Recently Relevant to Health Maintenance Results * POCT GLUCOSE (12/24/2023 12:13 PM EDT)ComponentValueRef RangeTest Method Analysis TimePerformed AtPathologist SignaturePOCT Jxmpibc9718 - 99 mg/dL 12/24/2023 12:15 PM EDTST [facility] LABSpecimen (Source)Anatomical Location / LateralityCollection Method / VolumeCollection TimeReceived Time BloodCapillary blood specimen / Ptggqxy4612/24/2023 12:13 PM EDT12/24/2023 12:15 PM EDT Narrative Authorizing ProviderResult TypeResult StatusMicjana [place] POINT OF CARE TEST DOCKED DEVICE UNSOLICITED RESULTSFinal ResultPerforming OrganizationAddress City/State/ZIP CodePhone Number [facility] [address] [place] [address] * Vitamin D 25-Hydroxy,Total (for eval of Vitamin D levels) (11/28/2023 3:21 PM EDT)ComponentValueRef RangeTest MethodAnalysis TimePerformed AtPathologist SignatureVitamin D, 25-Hydroxy, Nlnwk9719 - 100 ng/mL LAB IMMUNOASSAY METHOD 11/28/2023 6:26 PM EDTBARNES[facility]KASS[facility] LABSpecimen (Source)Anatomical Location / Laterality Collection Method / VolumeCollection TimeReceived TimeBloodVenous blood specimen / UnknownVenipuncture / Osaeklw7811/28/2023 3:21 PM EDT11/28/2023 3:21 PM EDT Narrative [facility] - 11/28/2023 6:26 PM EDT Deficiency: < 20 ng/ml Insufficiency: ?20-29 ??ng/ml Sufficiency: ?30-100 ng/ml This assay accurately quantifies the sum of Vitamin D3, 25-Hydroxy and Vitamin D2,25-Hydroxy. Authorizing ProviderResult TypeResult StatusBerkshire Medical Center DOLAB BLOOD ORDERABLES Final ResultPerforming OrganizationAddressCity/State/ZIP CodePhone Number [facility] [address] [place] [address] from Last 3 Months or Most Recently Relevant to Health Maintenance Insurance Advance Directives For more information, please contact: [phone] (Available ) * Full Code (Latest Code Status on File) Date ActivatedDate InactivatedComments12/24/2023 12:03 PMQuestionAnswerComments Plan of Care:* Code Status Discussion Not Completed Decision Maker:* Provider Rationale:* Patient condition does not warrant discussion Care Teams Team MemberRelationshipSpecialtyStart DateEnd Date Bipin Martell MD [address] [facility] [place] [address] PCP - GeneralFamily Medicine09/28/23
--- OUTSIDE RECORDS SUMMARY | 2025-04-24 06:13 | XMS_ITS | Patient Health Record ---
Author Organization [facility] [place] Address [address] [place] [address] Care Team Providers Care Comb Winder Name Role Phone Edil Martell Primary Care Provider Soumya Alvarado Levi [phone] Allergies Allergen (clinical drug ingredient) Drug/Non Drug Allergy documented on EMR Reaction Allergy Type Onset Date Status benzonatate Benzonatate hives,swelling,itching,rash Drug A llergy Active Results Component Value Reference Range Notes PROF CHEM 8 (BAS METB) Reviewed date:08/25/2024 08:13:30 PM Interpretation: Performing Lab: Notes/Report: [facility] , Sodium 143 136-145 mmol/L Potassium3.63.5-5.1 mmol/NPhrscmdw42693-304 mmol/LCarbon Dtaluhw45.021.0-32.0 mmol/LAnion Gap11.6Rpgqfpz76241-849 mg/dLBlood Urea Pdbdgsye38.07.0-18.0 mg/dL Creatinine0.830.55-1.02 mg/dLEstimated GFR ( Desi>60>=60 mL/min/1.73m 2Estimated GFR (Non- Nathalie>60>=60 mL/min/1.73m 2BUN Creatinine Ratio16.9 Calcium9.38.5-10.1 mg/dLPerforming Lab:see noteML - [facility] LB IGP,Aptima HPV,Age Gdln Reviewed date:01/15/2025 07:54:35 PM Interpretation: Performing Lab: Notes/Report: BRUSH-SPATULA CERVIX ENDOCERVIX [facility] ,Age Gdln ACOG TestingNote. TESTS RESULT FLAG UNITS REF RANGE LAB Clinician Provided Cytology Information Source.............Cervix;Endocervix No. of containers..01 ThinPrep Vial Age Algo ACOG Amirah... 30 FLAG LEGEND: L-Low Normal,H-High Normal,LL-Alert Low,HH-Alert High <-Panic Low,>-Panic High,A-Abnormal,AA-Critical Abnormal Performed at: 01 =[facility] [address] Zainab Mckeon MD, IGP, Aptima HPV, rfx 16/18,45Note. TESTS RESULT FLAG UNITS REF RANGE LAB DIAGNOSIS: 02 NEGATIVE FOR INTRAEPITHELIAL LESION OR MALIGNANCY. Specimen adequacy: 02 Satisfactory for evaluation. Endocervical and/or squamous metaplastic cells (endocervical component) are present. Performed by: 02 Natalie Starks Credentialing Specialist (ASCP) . 02 Note: Note 02 The [...] <-Panic Low,>-Panic High,A-Abnormal,AA-Critical Abnormal Performed at: [address] [address] Zainab Mckeon MD, HPV AptimaNegativeNegative This nucleic acid amplification test detects fourteen high- risk HPV types (16,18,31,33,35,39,45,51,52,56,58,59,66,68) without differentiation. Performed at: =[address] [id number] Canteen Attendant: Zainab Mckeon MD, Phone: [phone] Performed at: [address] [id number] Canteen Attendant: Zainab Mckeon MD, Phone: [phone] Performing [facility] BI Reviewed date:01/10/2025 04:59:42 PM Interpretation: Performing Lab: Notes/Report: Source Facility: [facility]-[address] [place] [address] [place] [address] Mammography Report Signed Patient: MADHURI GUSMAN MR#: [id number] : 1980 Acct:[id number] Age/Sex: 44 / F ADM Date: 01/09/25 Loc: MAMMO Attending Dr: Sherri Baca Ordering Physician: Sherri Baca Results: Date of Service: 01/09/25 Follow Up: Procedure(s): MM tomosynthesis screening BI Accession Number(s): [id number] cc: Sherri Baca; Bipin Martell M.D. Patient Name: MADHURI GUSMAN MR#: [id number] : 1980 Exam Date: 01/09/2025 Ordering Doctor: CHAYA BACA . RADIOLOGY REPORT PROCEDURE: MM TOMOSYNTHESIS SCREENING [...] uterine cancer at age 40. LOCATION: [facility] BREAST COMPOSITION: The breasts are heterogeneously dense, [...] Signed By: 01/09/25 1321 DD/ 1320 TD/TT: Cushion Builder:CLAYTON echo doppler complete Reviewed date:11/26/2024 07:46:07 PM Interpretation: Performing Lab: Notes/Report: Source Facility: [place] [address] [place] [address] Cardiology Report Signed Patient: MADHURI GUSMAN MR#: [id number] : 1980 Acct:[id number] Age/Sex: 44 / F ADM Date: 11/26/24 Loc: CARD Attending Dr: YOLANDE NGUYEN Ordering Physician: YOLANDE NGUYEN Date of Service: 11/26/24 Procedure(s): CA echo doppler complete Accession Number(s): [id number] cc: Bipin Martell M.D.; YOLANDE NGUYEN Patient Name: MADHURI GUSMAN MR#: [id number] : 1980 Exam Date: 11/26/2024 Ordering Doctor: [...] Dictated By: YOLANDE NGUYEN Signed By: 11/26/24 284 DD/ 48 TD/TT: Cushion Builder:ELIECER soriaon 2V Reviewed date:10/06/2024 10:15:32 AM Interpretation: Performing Lab: Notes/Report: Source Facility: [place] [id number] XRay Report Signed Patient: MADHURI GUSMAN MR#: [id number] : 1980 Acct:[id number] Age/Sex: 44 / F ADM Date: 10/06/24 Loc: RAD Attending Dr: Soumya Alvarado D.O. Ordering Physician: Soumya Alvarado D.O. Date of Service: 10/06/24 Procedure(s): XR chest 2V Accession Number(s): [id number] cc: Bipin Martell M.D.; Soumya Alvarado D.O. [place] [address] Patient Name: MADHURI GUSMAN MRN: [id number] date: 1980 Sex: F Assigned Patient Location: [facility] Current Patient Location: [facility] Accession/Order Number: [id number] Exam Date: 10/06/2024 08:54 Report Date: 10/06/2024 [...] Wang M.D. 10/06/2024 8:56 AM Dictation Location: [place] [address] Electronically authenticated by: [id number] Y Date: 10/06/2024 08:56 Dictated By: Anayeli Wang M.D. Signed By: 10/06/24 0858 DD/ TD/TT: Cushion Builder:Mario Reviewed date:09/29/2024 03:46:24 PM Interpretation: Performing Lab: Notes/Report: [facility] ,Zqwehplis57.2. pg/mL Adult Female Range Follicular phase 12.5 - 166.0 Ovulation phase 85.8 - 498.0 Luteal phase 43.8 - 211.0 Postmenopausal <6.0 - 54.7 1st trimester 215.0 - >4300.0 Twin ECLIA methodology Performing Lab:see [facility] Reviewed date:09/29/2024 03:46:24 PM Interpretation: Performing Lab: Notes/Report: [facility] ,FSH71.8. mIU/mL Adult Female Range Follicular phase 3.5 - 12.5 Ovulation phase 4.7 - 21.5 Luteal phase 1.7 - 7.7 Postmenopausal 25.8 - 134.8 Performing Lab:see [facility] LBProgesterone Reviewed date:09/29/2024 03:46:24 PM Interpretation: Performing Lab: Notes/Report: [facility] ,Progesterone0.1. ng/mL Follicular phase 0.1 - 0.9 Luteal phase 1.8 - 23.9 Ovulation phase 0.1 - 12.0 First trimester 11.0 - 44.3 Second trimester 25.4 - 83.3 Third trimester 58.7 - 214.0 Postmenopausal 0.0 - 0.1 Performed at: [address] [id number] Canteen Attendant: Bryce Xiong PhD, Phone: [phone] Performing Lab:[facility] Reviewed date:09/27/2024 11:59:18 AM Interpretation: Performing Lab: Notes/Report: [facility] ,Thyroid Stimulating Hormone0.6990.358-3.740 uIU/mLPerforming Lab:[facility] LBT4 Reviewed date:09/27/2024 11:59:18 AM Interpretation: Performing Lab: Notes/Report: [facility] ,T4 Thyroxine7.704.80-13.90 ug/dLPerforming Lab:see [facility] LBPROLACTIN Reviewed date:09/29/2024 03:46:24 PM Interpretation: Performing Lab: Notes/Report: [facility] ,Pjjddccpi66.44.8-33.4 ng/mLPerforming Lab:see noteLC - [facility] LBPROF 14(COMP METB) Reviewed date:09/27/2024 11:59:18 AM Interpretation: Performing Lab: Notes/Report: [facility] ,Bhppyq009831-053 mmol/LPotassium3.73.5-5.1 mmol/BYadmztdz66599-453 mmol/LCarbon Rwmrbux51.721.0-32.0 mmol/LAnion Gap11.0Oagjxfn26541-071 mg/dLBlood Urea Nitrogen8.07.0-18.0 mg/dLCreatinine0.900.55-1.02 mg/dLEstimated GFR ( Desi>60>=60 mL/min/1.73m 2Estimated GFR (Non- Nathalie>60>=60 mL/min/1.73m 2BUN Creatinine Ratio8.0Lxywfjw3.28.5-10.1 mg/dLBilirubin Total0.60.2-1.0 mg/dL Aspartate Amino Murbezakksw1649-24 U/LAlanine Qwphxswcvupthbsd1619-20 U/L Alkaline Uciwhvnpfjc1951-307 U/LTotal Protein7.46.4-8.2 g/dLAlbumin Level4.33.4- 5.0 g/dLGlobulin3.1Albumin Globulin Ratio1.4Performing Lab:see noteML - [facility] LBLIPID PROFILE Reviewed date:09/27/2024 11:59:18 AM Interpretation: Performing Lab: Notes/Report: [facility] ,Ujmtcfsginqbk19<=150 mg/oWBmlcwrfsnrl229<=200 mg/dLHDL Anrrqsvnvbb7966-90 mg/dL > or =60 mg/dl - LOW CARDIOVASCULAR RISK <40 mg/dl - HIGH CARDIOVASCULAR RISK LDL Cholesterol Wujmqsotrw49.0 <100 mg/dl OPTIMAL 100-129 mg/dl NEAR OR ABOVE OPTIMAL 130-159 mg/dl BORDERLINE HIGH 160-189 mg/dl HIGH >190 mg/dl VERY HIGH VLDL CHOLESTEROL7.8Chol HDL Ratio2.3 3.3 - 4.4 LOW RISK 4.4 - 7.1 AVERAGE RISK 7.1 - 11.0 MODERATE RISK >11.0 HIGH RISK Performing Lab:see noteML - [facility] LBIRON Reviewed date:09/27/2024 11:59:18 AM Interpretation: Performing Lab: Notes/Report: [facility] ,Iron93.050.0-170.0 ug/dLPerforming Lab:see note - [facility] LB INSULIN Reviewed date:09/30/2024 04:14:01 PM Interpretation: Performing Lab: Notes/Report: [facility] ,Futwipe40.52.6-24.9 uIU/mL Performed at: [address] [id number] Canteen Attendant: Bryce Xiong PhD, Phone: [phone] Performing Lab:see note - [facility] LBGLYCOHEMOGLOBIN A1C Reviewed date:09/27/2024 11:59:18 AM Interpretation: Performing Lab: Notes/Report: [facility] ,Glycohemoglobin A1C6.14.5-6.2 % ADA RECOMMENDED LIMIT 4.0 - 6.0 ADA THERAPEUTIC TARGET < 7.0 ACTION SUGGESTED > 7.0 Estimated Average Uvbyadg907Hpvxijhmrv Lab:see note - [facility] LB FREE T3 Reviewed date:09/27/2024 11:59:18 AM Interpretation: Performing Lab: Notes/Report: [facility] ,Free T32.982.18-3.98 pg/mLPerforming Lab:see note - [facility] LB CBC AUTO DIFF Reviewed date:09/27/2024 11:59:18 AM Interpretation: Performing Lab: Notes/Report: [facility] ,White Blood Count5.54.0-11.0 10 3/uLRed Blood Count4.584.20-5.40 10 6/uL Xijoeoyvjn11.812.0-16.0 g/wFBaskgrenwt09.236.0-48.0 %Mean Corpuscular Axdyax80.8 81.0-99.0 fLMean Corpuscular Idtzirbylc08.126.7-34.0 pgMean Corpuscular HGB Conc 34.329.9-35.2 g/dLRed Cell Distribution Width12.511.0-15.0 %Platelet Kgget890 150-450 10 3/uLMean Platelet Jqdadh85.09.5-13.5 fLNeutrophils Percent Auto50.5 43.0-75.0 %Lymphocytes Percent Auto33.920.5-60.0 %Monocytes Percent Auto6.61.7- 12.0 %Eosinophils Percent Auto7.70.9-7.0 %Basophils Percent Auto1.10.2-2.0 % Immature Granulocytes Pct Auto0.20.0-0.5 %Neutrophils Absolute Auto2.81.4-6.5 10 3/uLLymphocytes Absolute Auto1.91.2-3.8 10 3/uLMonocytes Absolute Auto0.40.3- 0.8 10 3/uLEosinophils Absolute Auto0.40.0-0.7 10 3/uLBasophils Absolute Auto0.1 0.0-0.1 10 3/uLImmature Granulocytes Abs Auto0.010.00-0.03 10 3/uLPerforming Lab:see noteML - [facility] LBRT pulmonary function test Reviewed date:10/01/2024 09:37:29 AM Interpretation: Performing Lab: Notes/Report: Source Facility: [place] [address] Respiratory Report Signed Patient: MADHURI GUSMAN MR#: [id number] : 1980 Acct:[id number] Age/Sex: 44 / F ADM Date: 09/25/24 Loc: CARD Attending Dr: Soumya Alvarado D.O. Ordering Physician: Soumya Alvarado D.O. Date of Service: 09/25/24 Procedure(s): RT pulmonary function test Accession Number(s): [id number] cc: [facility] Test Date: 2024-09-25 Pat Name: MADHURI GUSMAN Department: Room: - Gender: Female Advertising Assistant: Edwin Banerjee RRT : 1980 Requested By: Soumya Alvarado Order Number: [id number] Michel MD: Soumya Alvarado Interpretive Statements Pulmonary function [...] Signed By: 10/01/24 0920 DD/ 1311 TD/TT: Cushion Builder:Gram Stain Evaluation Reviewed date:09/01/2024 07:46:23 AM Interpretation: Performing Lab: Notes/Report: [facility] ,Gram Stain EvaluationSee Below For Report Gram Stain Evaluation This specimen is of good quality and is acceptable for routine Gram Stain Evaluationbacterial culture. Gram Stain Evaluation This specimen is of good quality and is acceptable for routine Performing Lab:see noteLC - [facility] LBLower Respiratory Culture Reviewed date:09/01/2024 07:46:23 AM Interpretation: Performing Lab: Notes/Report: [facility] ,Lower Respiratory CultureSee Below For Report Lower Respiratory Culture WILL FOLLOW Lower Respiratory CultureRoutine respiratory lindsey Lower Respiratory Culture WILL FOLLOW Lower Respiratory CulturePerformed at: - [facility] [place] Lower Respiratory Culture WILL FOLLOW Lower Respiratory [address] [place], [place] [id number] Lower Respiratory Culture WILL FOLLOW Lower Respiratory CultureLab Director: Bryce Xiong PhD, Phone: [phone] Lower Respiratory Culture WILL FOLLOW Performing Lab:see note LC - [facility] LB SEE REPORT - Furniture Fabricator Id information not found for OBX-specific circular stuffer legend Gram Stain Evaluation Reviewed date:08/31/2024 01:16:26 PM Interpretation: Performing Lab: Notes/Report: [facility] ,Gram Stain EvaluationSee Below For Report Gram Stain Evaluation This specimen is of good quality and is acceptable for routine Gram Stain Evaluationbacterial culture. Gram Stain Evaluation This specimen is of good quality and is acceptable for routine Performing Lab:see noteLC - [facility] LBResult 4 Reviewed date:09/01/2024 07:46:23 AM Interpretation: Performing Lab: Notes/Report: [facility] ,Result 4See Below For Report Result 4 CARBON ELECTRODES SUPERVISOR Performing Lab:see noteLC - [facility] LBResult 3 Reviewed date:09/01/2024 07:46:23 AM Interpretation: Performing Lab: Notes/Report: [facility] ,Result 3See Below For Report Result 3 CARBON ELECTRODES SUPERVISOR Performing Lab:see noteLC - [facility] LBResult 2 Reviewed date:09/01/2024 07:46:23 AM Interpretation: Performing Lab: Notes/Report: [facility] ,Result 2See Below For Report Result 2 CARBON ELECTRODES SUPERVISOR Performing Lab:see noteLC - [facility] LBResult 1 Reviewed date:09/01/2024 07:46:23 AM Interpretation: Performing Lab: Notes/Report: [facility] ,Result 1See Below For Report Result 1 Rare gram positive cocci Performing Lab:see note - [facility] LBEpithelial Cells Reviewed date:09/01/2024 07:46:23 AM Interpretation: Performing Lab: Notes/Report: [facility] ,Epithelial CellsSee Below For Report Epithelial Cells Few Performing Lab:see note - [facility] LBWhite Blood Cells Reviewed date:09/01/2024 07:46:23 AM Interpretation: Performing Lab: Notes/Report: [facility] ,White Blood CellsSee Below For Report White Blood Cells White Blood CellsModerate White Blood Cells Performing Lab:see note - [facility] LBECG 12 lead Reviewed date:08/26/2024 02:31:12 PM Interpretation: Performing Lab: Notes/Report: Source Facility: [place] [address] [place] [address] Electrocardiograph Report Signed Patient: MADHURI GUSMAN MR#: [id number] : 1980 Acct:[id number] Age/Sex: 44 / F ADM Date: 08/25/24 Loc: MS 215-[address]: Bipin Martell M.D. Ordering Physician: Margarito Santamaria M.D. Date of Service: 08/25/24 Procedure(s): ECG 12 lead Accession Number(s): [id number] cc: [facility] Test Date: 2024-08-25 Pat Name: MADHURI GUSMAN Department: Room: [facility] Gender: Female Advertising Assistant: : 1980 Requested By: 1030 Order Number: [id number] Reading MD: YOLANDE NGUYEN M.D. Measurements Intervals Alpine Rate: 108 P: 73 NC: 162 QRS: 91 QRSD: 90 T: 56 [...] M.D. Dictated By: YOLANDE NGUYEN Signed By: 08/25/243 DD/ 7 TD/TT: Cushion Builder:SARS-CoV-2 Ag* Reviewed date:08/25/2024 08:13:30 PM Interpretation: Performing Lab: Notes/Report: [facility] ,SARS-CoV-2 AgNEGATIVENEGATIVE This test has not been FDA cleared [...] terminated or authorization is revoked sooner. Performing Lab:see noteML - [facility] LBAerobe ID + Suscept Reviewed date:08/31/2024 01:16:26 PM Interpretation: Performing Lab: Notes/Report: [facility] ,Aerobe ID + SusceptSee Below For Report Aerobe ID + Suscept O:STAWAR Isolated Organism: 1.1 Antibiotic Interpretation EZEQUIEL Status Aerobe ID + Suscept*ABNORMAL* Aerobe ID + Suscept O:STAWAR Isolated Organism: 1.1 Antibiotic Interpretation EZEQUIEL Status Aerobe ID + SusceptGram positive cocci Aerobe ID + Suscept O: Isolated Organism: 1.1 Antibiotic Interpretation EZEQUIEL Status Aerobe ID + Suscept*ABNORMAL* Aerobe ID + Suscept O: Isolated Organism: 1.1 Antibiotic Interpretation EZEQUIEL Status Aerobe ID + SusceptReceived pediatric bottle only. Aerobe ID + Suscept O: Isolated Organism: 1.1 Antibiotic Interpretation EZEQUIEL Status Aerobe ID + SusceptIdentification and sensitivities to follow. Aerobe ID + Suscept O: Isolated Organism: 1.1 Antibiotic Interpretation EZEQUIEL Status Aerobe ID + SusceptOrganism: Staphylococcus warneri : Aerobe ID + Suscept O: Isolated Organism: 1.1 Antibiotic Interpretation EZEQUIEL Status Aerobe ID + Suscept*ABNORMAL* Aerobe ID + Suscept O: Isolated Organism: 1.1 Antibiotic Interpretation EZEQUIEL Status Aerobe ID + SusceptBased on resistance to oxacillin this isolate would be Aerobe ID + Suscept O: Isolated Organism: 1.1 Antibiotic Interpretation EZEQUIEL Status Aerobe ID + Susceptresistant to all currently available beta-lactam Aerobe ID + Suscept O: Isolated Organism: 1.1 Antibiotic Interpretation EZEQUIEL Status Aerobe ID + Susceptantimicrobial agents, with the exception of the newer Aerobe ID + Suscept O: Isolated Organism: 1.1 Antibiotic Interpretation EZEQUIEL Status Aerobe ID + Susceptcephalosporins with anti-MRSA activity, such as Aerobe ID + Suscept O: Isolated Organism: 1.1 Antibiotic Interpretation EZEQUIEL Status Aerobe ID + SusceptCeftaroline Aerobe ID + Suscept O: Isolated Organism: 1.1 Antibiotic Interpretation EZEQUIEL Status Aerobe ID + SusceptReceived pediatric bottle only. Aerobe ID + Suscept O: Isolated Organism: 1.1 Antibiotic Interpretation EZEQUIEL Status Aerobe ID + SusceptStaphylococcus warneri Aerobe ID + Suscept O: Isolated Organism: 1.1 Antibiotic Interpretation EZEQUIEL Status Aerobe ID + SusceptSee Below For Report Aerobe ID + Suscept O: Isolated Organism: 1.1 Antibiotic Interpretation EZEQUIEL Status Aerobe ID + SusceptPerformed at: CB - [facility] [place] Aerobe ID + Suscept O: Isolated Organism: 1.1 Antibiotic Interpretation EZEQUIEL Status Aerobe ID + [id number] [place], [place] [id number] Aerobe ID + Suscept O: Isolated Organism: 1.1 Antibiotic Interpretation EZEQUIEL Status Aerobe ID + SusceptLab Director: Bryce Xiong PhD, Phone: [phone] Aerobe ID + Suscept O: Isolated Organism: 1.1 Antibiotic Interpretation EZEQUIEL Status Aerobe ID + SusceptSee Below For Report Aerobe ID + Suscept O: Isolated Organism: 1.1 Antibiotic Interpretation EZEQUIEL Status Aerobe ID + SusceptCiprofloxacin S F Aerobe ID + Suscept O: Isolated Organism: 1.1 Antibiotic Interpretation EZEQUIEL Status Aerobe ID + SusceptErythromycin R F Aerobe ID + Suscept O: Isolated Organism: 1.1 Antibiotic Interpretation EZEQUIEL Status Aerobe ID + SusceptGentamicin S F Aerobe ID + Suscept O: Isolated Organism: 1.1 Antibiotic Interpretation EZEQUIEL Status Aerobe ID + SusceptLevofloxacin S F Aerobe ID + Suscept O: Isolated Organism: 1.1 Antibiotic Interpretation EZEQUIEL Status Aerobe ID + SusceptMoxifloxacin S F Aerobe ID + Suscept O: Isolated Organism: 1.1 Antibiotic Interpretation EZEQUIEL Status Aerobe ID + SusceptOxacillin R F Aerobe ID + Suscept O: Isolated Organism: 1.1 Antibiotic Interpretation EZEQUIEL Status Aerobe ID + SusceptPenicillin R F Aerobe ID + Suscept O: Isolated Organism: 1.1 Antibiotic Interpretation EZEQUIEL Status Aerobe ID + SusceptRifampin S F Aerobe ID + Suscept O: Isolated Organism: 1.1 Antibiotic Interpretation EZEQUIEL Status Aerobe ID + SusceptTetracycline S F Aerobe ID + Suscept O: Isolated Organism: 1.1 Antibiotic Interpretation EZEQUIEL Status Aerobe ID + SusceptTrimethoprim/Sulfamethoxazole S F Aerobe ID + Suscept O: Isolated Organism: 1.1 Antibiotic Interpretation EZEQUIEL Status Aerobe ID + SusceptVancomycin S F Aerobe ID + Suscept O: Isolated Organism: 1.1 Antibiotic Interpretation EZEQUIEL Status Aerobe ID + SusceptClindamycin R F Aerobe ID + Suscept O: Isolated Organism: 1.1 Antibiotic Interpretation EZEQUIEL Status Performing Lab:see note LC - [facility] LB SEE REPORT - Furniture Fabricator Id information not found for OBX-specific circular stuffer legend Blood Culture 1 Reviewed date:08/31/2024 01:16:26 PM Interpretation: Performing Lab: Notes/Report: [facility] ,Blood Culture 1See Below For Report Blood Culture 1 NG5D NO GROWTH AT 5 DAYS.^NO GROWTH AT 5 DAYS. Performing Lab:see noteML - [facility] LBRSV Reviewed date:08/25/2024 08:13:30 PM Interpretation: Performing Lab: Notes/Report: [facility] ,Respiratory Syncytial VirusNot DetectedNOT DETECTEPerforming Lab:see noteML - [facility] LBINFLUENZA A AND B AG Reviewed date:08/25/2024 08:13:30 PM Interpretation: Performing Lab: Notes/Report: [facility] ,Influenza Virus A AntigenNegative Negative for Flu A protein antigen. Infection due to Flu A cannot be ruled out. Flu A antigen in the sample may be below the detection limit of the test. Influenza Virus B AntigenNegative Negative for Flu B protein antigen. Infection due to Flu B cannot be ruled out. Flu B antigen in the sample may be below the detection limit of the test. Performing Lab:see noteML - [facility] LBCBC AUTO DIFF Reviewed date:08/25/2024 08:13:30 PM Interpretation: Performing Lab: Notes/Report: [facility] ,White Blood Count7.74.0-11.0 10 3/uLRed Blood Count4.754.20-5.40 10 6/uL Xqwmaicndh93.212.0-16.0 g/uNLqbsludfoz96.736.0-48.0 %Mean Corpuscular Lzeegb09.8 81.0-99.0 fLMean Corpuscular Saatvtzqsf35.926.7-34.0 pgMean Corpuscular HGB Conc 34.129.9-35.2 g/dLRed Cell Distribution Width12.711.0-15.0 %Platelet Xjnwi357 150-450 10 3/uLMean Platelet Wqvmra98.19.5-13.5 fLNeutrophils Percent Auto45.0 43.0-75.0 %Lymphocytes Percent Auto24.420.5-60.0 %Monocytes Percent Auto5.91.7- 12.0 %Eosinophils Percent Auto23.40.9-7.0 %Basophils Percent Auto1.20.2-2.0 % Immature Granulocytes Pct Auto0.10.0-0.5 %Neutrophils Absolute Auto3.51.4-6.5 10 3/uLLymphocytes Absolute Auto1.91.2-3.8 10 3/uLMonocytes Absolute Auto0.50.3- 0.8 10 3/uLEosinophils Absolute Auto1.80.0-0.7 10 3/uLBasophils Absolute Auto0.1 0.0-0.1 10 3/uLImmature Granulocytes Abs Auto0.010.00-0.03 10 3/uLPerforming Lab:see noteML - [facility] LBBLOOD CULTURE ID PANEL Reviewed date:08/26/2024 02:31:12 PM Interpretation: Performing Lab: Notes/Report: [facility] ,CTX-MNOT APPLICABLENOT DETECTEIMPNOT APPLICABLENOT DETECTEKPCNOT APPLICABLENOT DETECTEmcr-1NOT APPLICABLENOT DETECTEmecA/CDETECTEDNOT DETECTE RESULTS CALLED TO VIVIANE CUENCA RN @BY Hannah Razo at 0420 mecA/C and MREJ (MRSA)NOT APPLICABLENOT DETECTENDMNOT APPLICABLENOT DETECTE UMQ-89-tnibLBL APPLICABLENOT DETECTEvanA/BNOT APPLICABLENOT DETECTEVIMNOT APPLICABLENOT DETECTESourceBLOODEnterococcus faecalisNOT DETECTEDNOT DETECTE Enterococcus faeciumNOT DETECTEDNOT DETECTEListeria monocytogenesNOT DETECTEDNOT DETECTEStaphylococcus spp.DETECTEDNOT DETECTE RESULTS CALLED TO VIVIANE CUENCA RN @BY Hannah Razo at 0420 Staphylococcus aureusNOT DETECTEDNOT DETECTEStaphylococcus epidermidisDETECTED NOT DETECTE RESULTS CALLED TO VIVIANE CUENCA RN @BY Hannah Razo at 0420 Staphylococcus lugdunensisNOT DETECTEDNOT DETECTEStreptococcus spp.NOT DETECTED NOT DETECTEStreptococcus agalactiaeNOT DETECTEDNOT DETECTEStreptococcus pneumoniaeNOT DETECTEDNOT DETECTEStreptococcus pyogenesNOT DETECTEDNOT DETECTEA. calcoaceticus-baumannii CpxNOT DETECTEDNOT DETECTEBacteroides fragilisNOT DETECTEDNOT DETECTEEnterobacteralesNOT DETECTEDNOT DETECTEEnterobacter cloacae complexNOT DETECTEDNOT DETECTEEscherichia coliNOT DETECTEDNOT DETECTEKlebsiella aerogenesNOT DETECTEDNOT DETECTEKlebsiella oxytocaNOT DETECTEDNOT DETECTE Klebsiella pneumoniae groupNOT DETECTEDNOT DETECTEProteus spp.NOT DETECTEDNOT DETECTESalmonella spp.NOT DETECTEDNOT DETECTESerratia marcescensNOT DETECTEDNOT DETECTEHaemophilus influenzaeNOT DETECTEDNOT DETECTENeisseria meningitidisNOT DETECTEDNOT DETECTEPseudomonas aeruginosaNOT DETECTEDNOT DETECTEStenotrophomonas maltophiliaNOT DETECTEDNOT DETECTECandida albicansNOT DETECTEDNOT DETECTE Amara aurisNOT DETECTEDNOT DETECTECandida glabrataNOT DETECTEDNOT DETECTE Amara kruseiNOT DETECTEDNOT DETECTECandida parapsilosisNOT DETECTEDNOT DETECTE Amara tropicalisNOT DETECTEDNOT DETECTECryptococcus neoformans/gattiiNOT DETECTEDNOT DETECTEPerforming Lab:see noteML - [facility] LBXR Chest PA and Lateral (Routine CXR) * Reviewed date:10/06/2024 09:08:48 AM Interpretation: Performing Lab: Notes/Report: AGCPC-2-OOFOJTRVGUG SCREENING SWAB Reviewed date:09/22/2024 08:50:50 AM Interpretation: Performing Lab: Notes/Report: COVID-19, Flu A+B IH Reviewed date:08/25/2024 08:13:30 PM Interpretation: Performing Lab: Notes/Report: COVIDnegFLU AnegFLU BnegControlposPROF CHEM 8 (BAS METB) Reviewed date:04/18/2025 05:06:27 PM Interpretation: Performing Lab: Notes/Report: [facility] ,Ivgtdu299662-123 mmol/LPotassium3.43.5-5.1 mmol/SSyfnenin71268-919 mmol/LCarbon Pnecndr48.321.0-32.0 mmol/LAnion Gap6.3Nkqhvsn6663-835 mg/dLBlood Urea Nitrogen 6.07.0-18.0 mg/dLCreatinine0.590.55-1.02 mg/dLEstimated GFR ( Desi>60 >=60 mL/min/1.73m 2Estimated GFR (Non- Nathalie>60>=60 mL/min/1.73m 2BUN Creatinine Ratio10.0Amezqzs8.18.5-10.1 mg/dLPerforming Lab:see noteML - [facility] LBUS pelvis w/ transvaginal Reviewed date:01/30/2025 12:31:50 PM Interpretation: Performing Lab: Notes/Report: Source Facility: [place] [address] Ultrasound Report Signed Patient: MADHURI GUSMAN MR#: [id number] : 1980 Acct:[id number] Age/Sex: 44 / F ADM Date: 01/29/25 Loc: US Attending Dr: Cintia Franco Ordering Physician: Cintia Franco Date of Service: 01/29/25 Procedure(s): US pelvis w/ transvaginal Accession Number(s): [id number] cc: Cintia Franco; Bipin Martell M.D. [facility] [place] [address] Patient Name: MADHURI GUSMAN MRN: [id number] date: 1980 Sex: F Assigned Patient Location: [place] Current Patient Location: [place] Accession/Order Number: [id number] Exam Date: 01/29/2025 16:04 Report Date: 01/29/2025 [...] 01/29/2025 8:30 PM Dictation Location: [place] [address] Electronically authenticated by: [id number] Y Date: 01/29/2025 20:30 Dictated By: Jersey Bruno M.D. 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 Patient was contacted and scheduled [...] Sulfate (2.5 MG/3ML) 0.083% 3 mL as ne eded Inhalation every 6 hrs 05/21/2024tiveLaMICtal 25 MG2 tablet Orally qd; Duration: 30 days01/31/2024 ActiveVenlafaxine HCl ER 75 MGOral; Duration: 30 DaysActiveVentolin HFA 108 (90 Base) MCG/ACT2 puff as needed Inhalation every 4 hrs; Duration: ActiveAdipex-P 37.5 MG1 tablet before breakfast Orally Once a day11/03/2024 ActiveProtonix 40 MG1 tablet Orally Once a day; Duration: 30 days07/30/2024 ActivetraZODone HCl 50 MG2 Oral qhs; Duration: 30 daysActiveTrelegy Ellipta 200-62.5-25 MCG/ACT 1 puff Inhalation Once a day; Duration: 90 days Rinse after use; Dispense #3 [...] alcohol in the p ast year? No Fdbrym5FlwqgxjjauqkmjGxxeqkth Problems Problem Type SNOMED Code ICD Code Onset Dates Problem Status W/U Status Risk Notes Problem Uncomplicated severe persistent asthma (071162800) Severe persistent asthma, uncomplicated (J45.50) ActiveconfirmedProblemLong-term current use of inhaled steroid (777121013)long term care phlebotomist (current) use of inhaled steroids (Z79.51)ActiveconfirmedProblemObesity (207399967)Obesity (E66.9)ActiveconfirmedProblemObstructive sleep apnea syndrome (81639399)RASHAD (obstructive sleep apnea) (G47.33)ActiveconfirmedProblemWell adult (525171434)Well adult (Z00.00)ActiveconfirmedProblemCommunity acquired pneumonia (247464042)Community acquired pneumonia (J18.9)ActiveconfirmedProblem Emphysema (30651904)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)ActiveconfirmedProblemHistory of endocrine disorder (820115462)History of diet-controlled diabetes (Z86.39)Active confirmedProblemSuicide attempt (42469757)Suicide attempt, initial encounter (T14.91XA)ActiveconfirmedProblemPeripheral eosinophilia (D72.19)Activeconfirmed Vital Signs Heart Rate 87 /min 10/06/2024 Fokuumtjrwb72.6 degrees Yroufdqczq30/02/2025Respiratory Rate16 /min10/06/2024 Lqiiehss67 %10/06/2024lood pressure logaurcgp03 mm Hg11/03/20245021Xqbqnl82 in 11/03/2024lood pressure yekncfgx210 mm Hg06/30/4546Yqgfwv986.8 lbs11/03/2024MI 32.75 kg/m211/03/2024 Procedures Procedure Date Ordered Date Performed Result Body Sit e PFT (13969, 98318, 17937) 09/08/2024 09/25/2024 N/A Encounters Encounter Location Date Provider Diagnosis [address] [address] 05/21/2024 Edil Hoy Acute non-recurrent sinusitis, unspecified location J01.90 and Nasal congestion R09.81 [facility] [address] [place] [address] 09/08/2024 Soumya Alvarado Severe persistent asthma, uncomplicated J45.50 ; Peripheral eosinophilia D72.19 ; Lung bullae J43.9 ; Community acquired pneumonia J18.9 ; RASHAD (obstructive sleep apnea) G47.33 ; long term care phlebotomist (current) use of inhaled steroids Z79.51 and Obesity E66.[address] [address] 09/26/2024 Edil Hoy Well adult Z00.[address] [address] 07/17/2024 Edil Hoy Nasal congestion R09 .81 and Acute bronchitis, unspecified organism J20.[address] [address] 07/30/2024 Edil Hoy Gastritis K29.[address] [address] 08/29/2024 Edil Hoy Acute bronchiolitis J21.[address] [address] 11/03/2024 Edil Hoy History of diet-controlled diabetes Z86.39 [facility] [address] [place] [address] 10/06/2024 Soumya Alvarado Severe persistent asthma, uncomplicated J45.50 ; Chest pain, unspecified R07.9 ; Community acquired pneumonia J18.9 ; Lung bullae J43.9 ; Peripheral eosinophilia D72.19 ; RASHAD (obstructive sleep apnea) G47.33 ; long term care phlebotomist (current) use of inhaled steroids Z79.51 ; Obesity E66.9 and History of diet-controlled diabetes Z86.39 [facility] [address] [place] [place] [address] 08/26/2024 Edil [facility] [facility] [place] [address]/ Soumya [facility] [facility] [place] [address]/Doug HoyAcute bronchiolitis J21.9[facility] [place] [place] [address]/Do HoyAcute bronchiolitis J21.9 and Gastritis K29.70[facility] [place] [address]/09/2024[facility] [place] [address]/[facility] [place] [address]/ [facility] [facility] [place] [address] 10/02/2024[facility] [facility] [place] [address]/06/2024[facility] [facility] [place] [address]/10/2024[facility] [place] [address]/ [facility] Encounter Date Diagnosis (ICD Code) Assessment Notes Treatment Notes Treatment Clinical Notes Section Notes 05/21/2024 Acute non-recurrent sinusitis, unspecified location (ICD-10 - J01.90) Rest and drink more liquids, especially water. You may use a humidifier or vaporizer to help keep the drainage moist. Pgwl-wpj-ccxyaez Nasal Saline may help the stuffy and runny nose. Use Ibuprofen and or Tylenol as needed for fever, chills, body aches or pain. Children 5 years old should not be given jfph-wla-fmseqrj cough and cold medications such as guaifenesin and dextromethorphan. If you're over age 5, you may try oapw-rcw-qnmjlro cold medications such as guaifenesin and dextromethorphan, or multi-symptom cold reliever such as Dayquil to help reduce the symptoms. Antibiotics have been pre scribed. You should take these until completed and follow the directions. Antibiotics can sometimescause upset stomach, and in rare cases, serious allergic reactions or serious gastrointestinal problems. If you start having severe abdominal pain, severe vomiting, or bloody diarrhea, you should be r eevaluated by your physician or urgent care immediately. Follow up with your Primary Care Provider or return to clinic if symptoms do not improve within 3-5 days07/30/2024Gastritis (ICD-10 - K29.70)5Acute bronchiolitis (ICD-10 - J21.9)09/08/2024Severe persistent asthma, uncomplicated (ICD-10 - J45.50) History of asthma since childhood. No recent PFT/spirometry available. Worsening symptoms over the past ~6 months, no clear identifying factor or trigger. 3 exacerbations requiring prednisone: 05/21/2024, 07/17/2024, 08/25/2024 - the last leading to hospitalization. Change from Breo 100 to Trelegy 100had some mild benefit, but she remains symptomatic. Has elevated eosinophil count. Previously on Xolair, but that was for urticaria. She states she does not recall any improvement in breathing while on Xolair as her asthma was controlled then. Plan: -Increase Trelegy 100 to Trelegy 200 -PFT F/U in ~4 weeks to review PFT and response to Trelegy 200. If she remains symptomatic, will discussstarting biologic therapy. 09/08/2024Peripheral eosinophilia (ICD-10 - D72.19) Eosinophils: -08/25/2024: 23.4% / 1800 -06/12/2023: 4% / 300 Labs reflect elevated eosinophil count - markedly increased at the time of her hospital admission. Will see how she responds to Trelegy 200 - if still symptomatic then, will look into biologic therapy. 09/26/2024Well adult (ICD-10 - Z00.00)11/03/2024History of diet-controlled diabetes (ICD-10 - Z86.39)10/06/2024Severe persistent asthma, uncomplicated (ICD-10 - J45.50) Prior [...] for evaluation. If that returns unremarkable, then Iwould suggest referral to vehicle technician for allergy testing (would be difficult to get biologic approved with normal PFT). F/U 3 months (end of December) when fall allergies are starting. 10/06/2024hest pain, unspecified (ICD-10 - R07.9) Patient complains of GOMEZ despite Trelegy 200 and normal PFT. She complains of accompanying chest pain which is left to sternum, stabbing in nature, can radiate to back and down left arm. Resting doesnot help - it can persist for up to an hour. Tachycardia can exacerbate the symptoms. She has a history of diabetes which is now diet-controlled. Paternal grandmother from cardiac issues. Given this history, question underlying cardiovascular disease. Recommended referral to cardiology - patient voiced agreement. 5Acute bronchiolitis (ICD-10 - J21.9)5Acute bronchiolitis (ICD-10 - J21.9)07/17/2024Nasal congestion (ICD-10 - R09.81)5Acute bronchitis, unspecified organism (ICD-10 - J20.9)Rest and drink more liquids, especially water. You may use a humidifier or vaporizer to help keep the drainage moist. Pkty-sjf-prczkai Nasal Saline may help the stuffy and runny nose. Use Ibuprofen and or Tylenol as needed for fever, chills, body aches or pain. Children 5 years old should not be given xcdp-kzw-kgmpdyb cough and cold medications such as guaifenesin and dextromethorphan. If you're over age 5, you may try avbg-hcn-vixuelv cold medications such as guaifenesin and dextromethorphan, or multi-symptom cold reliever such as Dayquil to help reduce the symptoms. Antibiotics have been prescribed. You should take these until completed and follow the directions. Antibiotics can sometimescause upset stomach, and in rare cases, serious [...] go to the emergency room or call [id number]/Gastritis (ICD-10 - K29.70)10/06/2024ommunity acquired pneumonia (ICD-10 - J18.9) Noted infiltrates in RLL on CTA 08/25/2024. Ordering F/U CXR - will contact patient with results. Ifabnormal, will need CT chest. This pneumonia occurred well after the patient began experiencing chest pain - as well as the pneumonia was on the contralateral side, I do not feel the two are interconnected. 09/08/2024Lung bullae (ICD-10 - J43.9) 4.3cm RML bulla noted on CTA chest 08/25/2024. Present on prior CT abdomen/pelvis 06/12/2023. Likely congenital. Regardless, will check for alpha-1 antitrypsin (AAT) deficiency. Pamphlet discussing AAT causes, testing, and potential treatment was provided to the patient. Appropriate follow-up is dependent on identified genotype. 05/21/2024Nasal congestion (ICD-10 - R09.81)5Community acquired pneumonia (ICD-10 - J18.9) Noted infiltrates in RLL on CTA 08/25/2024. Will discuss F/U imaging to document clearing of infiltrates at next visit. 10/06/2024Lung bullae (ICD-10 - J43.9) 4.3cm RML bulla noted on CTA chest 08/25/2024. Present on prior CT abdomen/pelvis 06/12/2023. AAT normal genotype MM. This is most consistent with a congenital bulla. Surgery is currently not indicated.Patient was counseled of increased risk of pneumothorax in general, and she was advised never to scuba dive. 10/06/2024Peripheral eosinophilia (ICD-10 - D72.19) Eosinophils: -08/25/2024: 23.4% / 1800 -06/12/2023: 4% / 300 She has responded favorably to Trelegy 200. PFT is currently normal. There is residual GOMEZ and chest pain - a cardiac cause needs R/O first before looking into further pulmonary treatment. 09/08/2024OSA (obstructive sleep apnea) (ICD-10 - G47.33) Has PAP, but does not appear that anyone is actively managing it - she states PCP is signing orders. 09/08/2024Long term (current) use of inhaled steroids (ICD-10 - Z79.51) Patient was counseled to rinse & gargle with water after inhaled corticosteroid use. 10/06/2024OSA (obstructive sleep apnea) (ICD-10 - G47.33) Defer to PCP. 10/06/2024Long term (current) use of inhaled steroids (ICD-10 - Z79.51) Patient was counseled to rinse & gargle with water after inhaled corticosteroid use. 09/08/2024Obesity (ICD-10 - E66.9) Patient's weight is inducing a restrictive pulmonary physiology. Weight loss indicated: Decrease calories, increase activity. 10/06/2024Obesity (ICD-10 - E66.9) Patient's weight is inducing a restrictive pulmonary physiology. Weight loss indicated: Decrease calories, increase activity. 10/06/2024History of diet-controlled diabetes (ICD-10 - Z86.39)05/21/2024Other Recommended keeping a rescue inhaler on hand and to [...] ACCESS PPO PLUS LOCAL PLAN [address] [place] [address] [phone] [id number] Madhuri Gusman Self - patient is the insured 2 Medications Administered Medication Instructions Date of Administration Dosage Notes Dexamethasone, 4mg/mL mg Medical (General) History Medical History History [...] 39 Surgical History Surgery Date(Month/Year) Tonsillectomy Cyst RemovalC Section X 1Hernia RepairNeck Surgerycholecystectomyendometrial ablationtubal ligationColonoscopy10/07/2024Hospitalization History Reason Date(Month/Year) Asthma Exacerbation-TB[facility] 08/25/2024
[2025-04-24 06:28] LABS: Hematocrit 37.7 % (36.0-48.0); Hemoglobin 12.6 g/dL (12.0-16.0); Immature Granulocytes Abs Auto 0.01 10^3/uL (0.00-0.03); Immature Granulocytes Pct Auto 0.2 % (0.0-0.5); Lymphocytes Absolute Auto 1.7 10^3/uL (1.2-3.8); Mean Corpuscular HGB Conc 33.4 g/dL (29.9-35.2); Mean Corpuscular Hemoglobin 29.3 pg (26.7-34.0); Mean Corpuscular Volume 87.7 fL (81.0-99.0); Platelet Count 367 10^3/uL (150-450); Red Blood Count 4.30 10^6/uL (4.20-5.40); White Blood Count 6.4 10^3/uL (4.0-11.0)
[2025-04-24] MEDS: HYDROMORPHONE HCL 0.5 MG/0.5 ML SYRINGE IV (09:00)
--- NOTE | 2025-04-24 09:15 | PM.ONB ---
Brief Operative Note Date of procedure: 04/24/25 Pre-op diagnosis general: pelvic pain Post-op diagnosis: same as pre-op Procedure: NAME OF PROCEDURE: bilateral laparoscopic salpingectomy lysis of adhesion from anterior abdominal significant adhesions of the anterior portion of uterus to the anterior abdominal wall PROCEDURE: The patient was taken back to the Operating Room where she was given general anesthesia without difficulty. She was then prepped and draped in the normal sterile fashion after being placed in a dorsal lithotomy position. A wet sponge stick was placed into the patient's vagina. Attention was then turned to the patient's abdomen, where a scalpel was used to make a small infraumbilical incision. The S retractors were then used to dissect the underlying layers until the fascia could be seen. The fascia was then grasped with Paris clamps and tented up. A knife was then used to make a small incision to the fascia. The muscle was identified, at that time two sutures of #0 Vicryl on a GI needle was then used and placed through the fascia. the peritoneum was then identified and entered bluntly. The 10-4 Basia was then placed into the patient's abdomen. This was confirmed with direct visualization of the bowel, using the laparoscope. The patient's abdomen was then insufflated using approximately 4 liters of CO2 gas. Survey of the patient's abdomen demonstrated ovaries were normal in appearance as well as both tubes and uterus. A second and third rt and lt lateral ports which were 5 and 8 mm in size, was then placed after the skin incision was made under direct visualization . The patient's tube on the patient's right side was identified and tented up using a grasper, the ligasure apparatus was then used to come across the mesosalpingx from the fimbriated end to the insertion site at the uterus, the tube was then amputated and removed in its entirety. This was done on the contralateral side. The tubes were the removed from the patients abdomen. Excellent hemostasis was noted. The lateral ports were then moved under direct visualization with excellent hemostasis. All instruments were removed from the patient's abdomen. The fascia was closed using the #0 Vicryl on GI needle. The skin was closed using 4-0 Vicryl subcuticularly. All instruments were removed from the patient's vagina as well. The patient was taken out of the dorsal lithotomy position and placed in the supine position and taken to recovery in stable condition. Sponge, lap and needle counts were correct x2. lysis of abdominal adhesion using the ligasure Anesthesia: CONSTANTIN Surgeon: John [employer] Consultant: Donna Morse Estimated blood loss (mL): 5 Pathology: other (bilateral tubes) Condition: stable Disposition: PACU Urinary Catheter Management Urinary Catheter Management Urethral: Cath placed during this visit: no
[2025-04-24] MEDS: HYDROCODONE/ACET 5-325 MG TABLET 1 TAB PO (09:21)
[2025-04-24] MEDS: PROMETHAZINE HCL 25 MG TABLET PO (10:01)
--- NOTE | 2025-04-24 10:03 | PC.NURSE ---
1001: pt complains of nausea,PO Phenergan given at this time.
--- NOTE | 2025-04-24 10:32 | PC.NURSE ---
1030: pt ambulates to bathroom,voids without difficulty.
== END 2025-04-24 10:37 | disposition home or self-care (01) ==
LOC: SURGOUT 06:10
PROVIDERS: PCP Family Medicine; Visit Provider Obstetrics & Gynecology
PROC: (CPT 840; principal; 2025-04-24 07:30)
DX: R10.20 Pelvic and perineal pain unspecified side (principal); N83.8 Other noninflammatory disorders of ovary, fallopian tube and broad ligament; K66.0 Peritoneal adhesions (postprocedural) (postinfection); Z98.51 Tubal ligation status; J45.909 Unspecified asthma, uncomplicated; E11.40 Type 2 diabetes mellitus with diabetic neuropathy, unspecified; K21.9 Gastro-esophageal reflux disease without esophagitis; F41.9 Anxiety disorder, unspecified
CPT/HCPCS: 58661; 36415; 84702; 85025; J0131; J1100; J1171; J1885; J2250; J2405; J2704; J3010; Q0169